=== PATIENT | male | born 1980 | race Caucasian/White ===

== ENCOUNTER 2020-10-23 11:31 | Outpatient (REF) | payer OTHER, SELFPAY | END 2020-10-23 11:32 | disposition home or self-care (01) | LOC: HO.LAB 11:31 | PROVIDERS: Visit Provider Internal Medicine | DX: Z20.828 Contact with and (suspected) exposure to other viral communicable diseases (principal) | CPT/HCPCS: C9803; U0003 ==

== ENCOUNTER 2020-10-30 15:51 | Outpatient (REF) | payer OTHER, SELFPAY | END 2020-10-30 15:52 | disposition home or self-care (01) | LOC: HO.LAB 15:51 | PROVIDERS: Visit Provider Internal Medicine | DX: Z20.828 Contact with and (suspected) exposure to other viral communicable diseases (principal) | CPT/HCPCS: C9803; U0003 ==

== ENCOUNTER 2020-11-02 11:56 | Emergency (ER) | payer OTHER, SELFPAY ==
--- NOTE | 2020-11-02 12:43 | ECG_ITS ---
Test Reason : cp Blood Pressure : / mmHG Vent. Rate : 071 BPM Atrial Rate : 071 BPM P-R Int : 114 ms QRS Dur : 082 ms QT Int : 398 ms P-R-T Axes : 041 074 047 degrees QTc Int : 432 ms Normal sinus rhythm with sinus arrhythmia Normal ECG When compared with ECG of 16-OCT-2019 14:11, No significant change was found Referred By: Twyla Howell Electronically Signed By:DIAN ZARAGOZA MD
[2020-11-02 12:45] VITALS: BP 119/86; PULSE 76; RESP 18; TEMP 36.6; O2SAT 99; BMI 20.1
--- NOTE | 2020-11-02 12:51 | ED.NAVMDI ---
HPI - Nausea/Vomiting/Diarrhea General Chief complaint: Abdominal Pain Stated complaint: abd pain, vomiting Time Seen by Provider: 11/02/20 12:43 History of Present Illness HPI Narrative: 40-year-old male with a history diabetes presents today with nausea vomiting diarrhea that is been ongoing for the last day and half. Positive history of using marijuana 2 days ago. Positive generalized malaise. No fever no chills. Min minimal coughing.. No diaphoresis. No history of abdominal surgery. The abdominal pain is epigastric. Does not radiate. Not related to food not related to position. Worsen with nausea vomiting. Patient from home. Rates the pain as 8/10. Related Data Home Medications Medication Instructions Recorded Confirmed omeprazole 20 mg capsule,delayed 20 mg PO BID 10/11/20 10/11/20 release Previous Rx's Medication Instructions Recorded pioglitazone 15 mg tablet 15 mg PO DAILY 90 Days #90 tab 10/11/20 wheelchair #1 ea 10/11/20 ondansetron 4 mg PO TID PRN 5 Days #10 tab 11/02/20 Allergies Allergy/AdvReac Type Severity Reaction Status Date / Time metformin Allergy Unknown vomiting Verified 10/11/20 14:06 and diarrhea sitagliptin [Januvia] Allergy Unknown vomiting Verified 10/11/20 14:06 and diarrhea Review of Systems Review of Systems: Constitutional: No Weight loss, No Fever, No Chills, No Night Sweats, No Fatigue, No Malaise ENT/Mouth: No Hearing loss, No Ear Pain, No Nasal Congestion, No Sinus Pain, No Hoarseness, No sore throat, No Rhinorrhea, No Swallowing Difficulty Eyes: No Eye Pain, No Swelling, No Redness, No Foreign Body, No Discharge, No Vision Changes Cardiovascular: No Chest Pain, No SOB, No Dyspnea on Exertion, No Orthopnea, No Edema, No Palpitations Respiratory: No Cough, No Sputum, No Wheezing, No Smoke Exposure, No Dyspnea Gastrointestinal: Positive nausea, vomiting, abdominal pain. Positive diarrhea Genitourinary: no irregular bleeding, No Dysuria, No Urinary Frequency, No Hematuria, No Urinary Incontinence, No Urgency, No Flank Pain, No Urinary Flow Changes, No Hesitancy Musculoskeletal: No joint pain, No Myalgias, No Joint Swelling Skin: No Skin Lesions, No rash Neuro: No Weakness, No Numbness, No Paresthesias, No Loss of Consciousness, No Dizziness, No Headache Psych: No Anxiety/Panic, No Depression, No SI/HI/AH/VH, No Social Issues, Heme/Lymph: No Bruising, No Bleeding,No Lymphadenopathy Endocrine: No Polyuria, No Polydipsia, No Temperature Intolerance PMFSH Past Medical History Attestation statement: The following information was validated with the patient. 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 Social History Social History Smoking Status: Never smoker Advance Directives: No Advance Directives Information Provided: Yes Physical Exam Vital Signs: Vital Signs: Last Vital Signs Temp 98.2 F 11/02/20 15:33 Pulse 79 11/02/20 15:33 Resp 16 11/02/20 15:33 BP 144/69 H 11/02/20 15:33 Pulse Ox 99 11/02/20 15:33 Body Mass Index 20.1 Appearance: Alert. Oriented X3. No acute distress. Eyes: Pupils equal, round and reactive to light. ENT: Pharynx normal. Neck: Normal inspection. Neck supple. No lymph nodes noted. No crepitus CVS: Normal heart rate and rhythm. Pulses normal. Normal S1 and S2 Respiratory: No respiratory distress. Breath sounds normal. No Wheezing. No rales Abdomen: Mild epigastric tenderness no rebound or guarding. No rigidity. No distention. good BS x4 Skin: Skin warm and dry. Normal skin color. Normal skin turgor. Extremities: No lower extremity edema. Neurovascular intact to all extremities. No Lacerations. No Rash Neuro: Oriented X 3. No motor deficit. No sensory deficit. Moving all extermities. No slurred speech MDM - Nausea/Vomiting/Diarrhea MDM Narrative Medical decision making narrative: Patient's electrolyte consistent with dehydration. Bicarb was 26 glucose is in the 250 range. No evidence for DKA. Given IV hydration with good results. Patient complained of epigastric pain. CT scan of the abdomen is done. There is no evidence of perforation abscess. There is renal cysts noted it is unchanged in size. Will have patient follow-up on an outpatient basis. Patient has no distress. Will start patient on PPI. Will give patient Zofran for nausea. In stable condition. Will discharge home Medical Records Attestation: I reviewed the patient's medical records. Lab Data Attestation: I reviewed the patient's lab results. Result diagrams: 11/02/20 13:01 11/02/20 13:01 Labs: Lab Results 11/02/20 11/02/20 11/02/20 Range/Units 12:50 13:01 13:01 WBC 11.6 H (4.8-10.8) X10*3/uL RBC 5.18 (4.60-5.80) X10*6/uL Hgb 15.9 (14.0-18.0) g/dl Hct 45.9 (42-52) % MCV 88.6 (80-98) fL MCH 30.7 (27.0-33.0) pg MCHC 34.6 (31.0-36.0) g/dl RDW 11.8 (11.0-16.0) % Plt Count 289 (160-400) X10*3/uL MPV 9.0 L (9.4-12.4) fL Immature Gran % (Auto) 0.3 (0.0-0.4) % Neut % (Auto) 87.6 H (45-73) % Lymph % (Auto) 8.4 L (20-40) % [place] % (Auto) 3.6 (2-11) % Eos % (Auto) 0.0 (0-4) % Baso % (Auto) 0.1 (0-2) % Lymph # (Auto) 1.0 L (1.2-4.9) X10*3/uL [place] # (Auto) 0.4 (0.1-1.2) X10*3/uL Eos # (Auto) 0.0 (0.0-0.4) X10*3/uL Baso # (Auto) 0.0 (0.0-0.2) X10*3/uL Abs Immat Gran (auto) 0.04 H (0.00-0.03) X10*3/uL Absolute Neuts (auto) 10.2 H (2.0-8.3) X10*3/uL Absolute Nucleated RBC 0.000 (0.0-0.012) X10*3/uL Nucleated RBC % (auto) 0.0 (0.0-0.2) /100WBC PT 13.2 H (10.8-13.0) SEC INR 1.1 (0.9-1.1) Sodium (135-145) mmol/L Potassium (3.3-5.1) mmol/l Chloride (96-108) mmol/L Carbon Dioxide (22-29) mmol/L Anion Gap (12-20) BUN (9-16) mg/dL Creatinine (0.5-1.4) mg/dL Estim Creat Clear Calc Estimated GFR POC Glucose 273 H (60-115) mg/dL Random Glucose (60-115) mg/dL Calcium (8.4-10.2) mg/dL Magnesium (1.6-2.6) mg/dL Total Bilirubin (0.0-1.0) mg/dL Direct Bilirubin (0.0-0.5) mg/dL AST (5-37) U/L ALT (0-40) U/L Alkaline Phosphatase (39-117) U/L Total Protein (6.5-8.0) g/dL Albumin (3.5-5.0) g/dL Lipase (8-78) U/L Urine Color Urine Appearance Urine pH (5.0-8.0) Ur Specific [place] (1.005-1.025) Urine Protein (NEG-TRACE) MG/DL Urine Glucose (UA) (NEG) MG/DL Urine Ketones (NEG) MG/DL Urine Blood (NEG) Urine Nitrite (NEG) Ur Leukocyte Esterase (NEG) Acetone, Qual (Negative) COVID-19 (ANIKA) (Negative) COVID-19 Clin Com 11/02/20 11/02/20 11/02/20 Range/Units 13:01 13:12 15:32 WBC (4.8-10.8) X10*3/uL RBC (4.60-5.80) X10*6/uL Hgb (14.0-18.0) g/dl Hct (42-52) % MCV (80-98) fL MCH (27.0-33.0) pg MCHC (31.0-36.0) g/dl RDW (11.0-16.0) % Plt Count (160-400) X10*3/uL MPV (9.4-12.4) fL Immature Gran % (Auto) (0.0-0.4) % Neut % (Auto) (45-73) % Lymph % (Auto) (20-40) % [place] % (Auto) (2-11) % Eos % (Auto) (0-4) % Baso % (Auto) (0-2) % Lymph # (Auto) (1.2-4.9) X10*3/uL [place] # (Auto) (0.1-1.2) X10*3/uL Eos # (Auto) (0.0-0.4) X10*3/uL Baso # (Auto) (0.0-0.2) X10*3/uL Abs Immat Gran (auto) (0.00-0.03) X10*3/uL Absolute Neuts (auto) (2.0-8.3) X10*3/uL Absolute Nucleated RBC (0.0-0.012) X10*3/uL Nucleated RBC % (auto) (0.0-0.2) /100WBC PT (10.8-13.0) SEC INR (0.9-1.1) Sodium 135 (135-145) mmol/L Potassium 3.5 (3.3-5.1) mmol/l Chloride 94 L (96-108) mmol/L Carbon Dioxide 26 (22-29) mmol/L Anion Gap 19 (12-20) BUN 23 H (9-16) mg/dL Creatinine 1.10 (0.5-1.4) mg/dL Estim Creat Clear Calc 70.1 Estimated GFR > 60 POC Glucose 223 H (60-115) mg/dL Random Glucose 293 H (60-115) mg/dL Calcium 9.1 (8.4-10.2) mg/dL Magnesium 2.2 (1.6-2.6) mg/dL Total Bilirubin 1.8 H (0.0-1.0) mg/dL Direct Bilirubin 0.5 (0.0-0.5) mg/dL AST 22 (5-37) U/L ALT 37 (0-40) U/L Alkaline Phosphatase 103 (39-117) U/L Total Protein 8.2 H (6.5-8.0) g/dL Albumin 4.8 (3.5-5.0) g/dL Lipase < 4 L (8-78) U/L Urine Color Urine Appearance Urine pH (5.0-8.0) Ur Specific [place] (1.005-1.025) Urine Protein (NEG-TRACE) MG/DL Urine Glucose (UA) (NEG) MG/DL Urine Ketones (NEG) MG/DL Urine Blood (NEG) Urine Nitrite (NEG) Ur Leukocyte Esterase (NEG) Acetone, Qual Small H (Negative) COVID-19 (ANIKA) Negative (Negative) COVID-19 Clin Com See Note 11/02/20 Range/Units 15:52 WBC (4.8-10.8) X10*3/uL RBC (4.60-5.80) X10*6/uL Hgb (14.0-18.0) g/dl Hct (42-52) % MCV (80-98) fL MCH (27.0-33.0) pg MCHC (31.0-36.0) g/dl RDW (11.0-16.0) % Plt Count (160-400) X10*3/uL MPV (9.4-12.4) fL Immature Gran % (Auto) (0.0-0.4) % Neut % (Auto) (45-73) % Lymph % (Auto) (20-40) % [place] % (Auto) (2-11) % Eos % (Auto) (0-4) % Baso % (Auto) (0-2) % Lymph # (Auto) (1.2-4.9) X10*3/uL [place] # (Auto) (0.1-1.2) X10*3/uL Eos # (Auto) (0.0-0.4) X10*3/uL Baso # (Auto) (0.0-0.2) X10*3/uL Abs Immat Gran (auto) (0.00-0.03) X10*3/uL Absolute Neuts (auto) (2.0-8.3) X10*3/uL Absolute Nucleated RBC (0.0-0.012) X10*3/uL Nucleated RBC % (auto) (0.0-0.2) /100WBC PT (10.8-13.0) SEC INR (0.9-1.1) Sodium (135-145) mmol/L Potassium (3.3-5.1) mmol/l Chloride (96-108) mmol/L Carbon Dioxide (22-29) mmol/L Anion Gap (12-20) BUN (9-16) mg/dL Creatinine (0.5-1.4) mg/dL Estim Creat Clear Calc Estimated GFR POC Glucose (60-115) mg/dL Random Glucose (60-115) mg/dL Calcium (8.4-10.2) mg/dL Magnesium (1.6-2.6) mg/dL Total Bilirubin (0.0-1.0) mg/dL Direct Bilirubin (0.0-0.5) mg/dL AST (5-37) U/L ALT (0-40) U/L Alkaline Phosphatase (39-117) U/L Total Protein (6.5-8.0) g/dL Albumin (3.5-5.0) g/dL Lipase (8-78) U/L Urine Color YELLOW Urine Appearance CLEAR Urine pH 6.0 (5.0-8.0) Ur Specific [place] 1.020 (1.005-1.025) Urine Protein 1+ H (NEG-TRACE) MG/DL Urine Glucose (UA) 500 H (NEG) MG/DL Urine Ketones >=80 (NEG) MG/DL Urine Blood TRACE (NEG) Urine Nitrite NEG (NEG) Ur Leukocyte Esterase NEG (NEG) Acetone, Qual (Negative) COVID-19 (ANIKA) (Negative) COVID-19 Clin Com Discharge Plan Discharge Clinical Impression: Gastritis Patient Disposition: Home, Self-Care Instructions: Gastritis (ED) Additional Instructions: May take omeprazole twice a day. Please refrain from smoking marijuana. Cyst was noted in your kidney. Please closely follow-up on an outpatient basis. Prescriptions: New ondansetron 4 mg tablet,disintegrating 4 mg PO TID PRN (Reason: nausea and vomiting) 5 Days Qty: 10 RF: 0 No Action omeprazole 20 mg capsule,delayed release(DR/EC) 20 mg PO BID RF: 0 (DME) wheelchair electric See Rx Instructions .Route .MEDSUPPLY Qty: 1 RF: 0 pioglitazone 15 mg tablet 15 mg PO DAILY 90 Days Qty: 90 RF: 0 Referrals: Isabell Blue MD [Primary Care Provider] - 2 days
[2020-11-02 12:54] LABS: Glucose, Whole Blood 273 mg/dL (60-115)
[2020-11-02] MEDS: ondansetron HCL 4 MG/2 ML VIAL IVPUSH (13:06)
[2020-11-02] MEDS: 0.9 % Sodium Chloride 1,000 ML 999 ML IVCONT ×2 (13:06→14:36)
[2020-11-02 13:08] LABS: MANUAL DIFF FLAG NO
[2020-11-02 13:12] LABS: Basophils Percent Auto 0.1 % (0-2); Hematocrit 45.9 % (42-52); Hemoglobin 15.9 g/dl (14.0-18.0); Imm Gran Abs Auto 0.04 X10*3/uL (0.00-0.03); Imm Gran Pct Auto 0.3 % (0.0-0.4); Lymphocytes Percent Auto 8.4 % (20-40); Mean Corpuscular HGB Conc 34.6 g/dl (31.0-36.0); Mean Corpuscular Hemoglobin 30.7 pg (27.0-33.0); Mean Corpuscular Volume 88.6 fL (80-98); Monocytes Absolute Auto 0.4 X10*3/uL (0.1-1.2); Monocytes Percent Auto 3.6 % (2-11); Neutrophils Absolute Auto 10.2 X10*3/uL (2.0-8.3); Neutrophils Percent Auto 87.6 % (45-73); Platelet Count 289 X10*3/uL (160-400); Red Blood Count 5.18 X10*6/uL (4.60-5.80); Red Cell Distribution Width 11.8 % (11.0-16.0); White Blood Count 11.6 X10*3/uL (4.8-10.8)
[2020-11-02 13:27] LABS: INTERNATIONAL NORM RATIO 1.1 (0.9-1.1); Prothrombin Time 13.2 SEC (10.8-13.0)
[2020-11-02 13:31] LABS: COVID-19 Test Negative (Negative)
[2020-11-02 13:37] LABS: Alanine Aminotransferase 37 U/L (0-40); Albumin Level 4.8 g/dL (3.5-5.0); Alkaline Phosphatase 103 U/L (39-117); Anion Gap 19 (12-20); Aspartate Amino Transferase 22 U/L (5-37); Bilirubin Direct 0.5 mg/dL (0.0-0.5); Bilirubin Total 1.8 mg/dL (0.0-1.0); Blood Urea Nitrogen 23 mg/dL (9-16); Calcium 9.1 mg/dL (8.4-10.2); Carbon Dioxide 26 mmol/L (22-29); Chloride 94 mmol/L (96-108); Creatinine Clr Calc Pharmacy 70.1; Estimated Glomerular Filt Rate > 60; Glucose Random 293 mg/dL (60-115); Lipase < 4 U/L (8-78); Magnesium 2.2 mg/dL (1.6-2.6); Potassium 3.5 mmol/l (3.3-5.1); Sodium 135 mmol/L (135-145); Total Protein 8.2 g/dL (6.5-8.0)
--- NOTE | 2020-11-02 13:56 | CT_ITS ---
EXAMINATION: CT ABDOMEN AND PELVIS WITH CONTRAST CLINICAL INFORMATION: Abdominal pain COMPARISON: CT abdomen and pelvis with contrast 01/01/2020 TECHNIQUE: Multidetector volumetric images were obtained from the superior aspect of the liver through the pubic symphysis following administration , 10/16/2019 mL of Omnipaque 350 intravenous contrast. Sagittal and coronal reformatted images were obtained on the technologist's workstation. Additional axial delayed images are obtained through the kidneys during the excretion phase with additional reformatted images. Oral contrast: No This CT examination was performed using dose optimization techniques as appropriate, variously including the following: *Automated exposure control *Adjustment of mA and/or kV according to patient size (this includes techniques or standardized protocols for targeted exams where dose is matched to indication/reason for exam; i.e. extremities or head) *Use of iterative reconstruction technique DLP: 494 mGy-cm FINDINGS: LUNG BASES: The visualized lung bases are unremarkable. LIVER, GALLBLADDER, AND BILIARY TREE: The liver is normal in size, shape, and attenuation. No focal hepatic lesion or biliary ductal dilatation is present. The gallbladder is unremarkable with no evidence of radiopaque gallstones, gallbladder wall thickening, or obvious pericholecystic inflammatory changes. PANCREAS: Mildly atrophic. No ductal dilatation or peripancreatic inflammatory changes. SPLEEN: Normal in size and homogeneous. 1 cm splenule present left upper quadrant. ADRENAL GLANDS: Unremarkable. KIDNEYS AND URETERS: The kidneys show no hydronephrosis, hydroureter, or perinephric stranding. There are numerous bilateral renal cysts again present. The hyperdense cysts left exophytic lower pole 2.2 cm, 53 HU attenuation and posterior exophytic interpolar 1.4 cm 70 HU attenuation are again noted of similar size. No appreciable washout on delayed images. Some of the lesions are too small to characterize. There is punctate rim calcification right upper pole cyst breast appreciated on coronal image. MRI would be helpful to fully characterize the kidneys as previously noted. BLADDER: Unremarkable. GASTROINTESTINAL TRACT: There is small sliding hiatal hernia. No bowel obstruction. The appendix is normal. The left colon is nondistended and difficult to assess for subtle wall thickening. There is no definite inflammatory changes seen in the bowel and no inflammatory changes present in the adjacent mesentery. There is no ascites or fluid collection. ABDOMINAL WALL: Borderline fat-containing umbilical hernia. LYMPH NODES: No lymphadenopathy. VASCULAR: Unremarkable. PELVIC VISCERA: Enlarged prostate again noted. Pelvic side wall soft tissues unremarkable. OSSEOUS STRUCTURES: No acute bony abnormality. CT/CT abdomen pelvis w con IMPRESSION: 1. No bowel obstruction. Normal appendix. Descending and sigmoid colon nondistended and difficult to assess for subtle wall thickening. No inflammatory changes in mesentery. No ascites. 2. No hydronephrosis or perinephric stranding. Multiple bilateral renal cysts, some hyperdense, stable in size. 3. Enlarged prostate.
[2020-11-02 14:22] LABS: Acetone, serum QL Small (Negative)
[2020-11-02] MEDS: Ketorolac Tromethamine 15 MG/ML VIAL IV (14:44)
[2020-11-02 15:33] VITALS: BP 144/69; PULSE 79; RESP 16; TEMP 36.8; O2SAT 99
[2020-11-02] MEDS: iohexoL 350 MG/ML 100 ML INFUS..BTL IV (15:35)
[2020-11-02 15:40] LABS: Glucose, Whole Blood 223 mg/dL (60-115)
[2020-11-02 15:58] LABS: Glucose Urine UA 500 MG/DL (NEG); Leukocyte Esterase Urine NEG (NEG); Nitrite Urine NEG (NEG); Urine Blood TRACE (NEG); Urine Ketones >=80 MG/DL (NEG); Urine Protein 1+ MG/DL (NEG-TRACE)
[2020-11-02 16:04] LABS: Appearance Urine CLEAR; Color Urine YELLOW
[2020-11-02 16:29] LABS: RBC Urine 0-2 /HPF (0); WBC Urine 0 /HPF (0-4)
== END 2020-11-02 17:31 | disposition home or self-care (01) ==
PROVIDERS: Emergency Provider Emergency Medicine Emergency Medical Services; PCP Internal Medicine
DX: K29.70 Gastritis, unspecified, without bleeding (principal); Z20.828 Contact with and (suspected) exposure to other viral communicable diseases; E11.9 Type 2 diabetes mellitus without complications; F12.90 Cannabis use, unspecified, uncomplicated; N28.1 Cyst of kidney, acquired
CPT/HCPCS: 36415; 74177; 80048; 80076; 81001; 81003; 82009; 82947; 83690; 83735; 85025; 85610; 87635; 93005; 96361; 96374; 96375; 99285; J1885; J2405; Q9967

== ENCOUNTER → 2020-11-06 13:08 | Outpatient (BNVA) | payer OTHER, SELFPAY | PROVIDERS: PCP Internal Medicine; Visit Provider Internal Medicine Gastroenterology | DX: K21.9 Gastro-esophageal reflux disease without esophagitis (principal) | CPT/HCPCS: 99212 ==

== ENCOUNTER → 2020-11-20 15:55 | Outpatient (BNVA) | payer OTHER, SELFPAY | PROVIDERS: PCP Internal Medicine; Visit Provider Internal Medicine Gastroenterology | DX: Z76.89 Persons encountering health services in other specified circumstances (principal) | CPT/HCPCS: Q3014 ==

== ENCOUNTER → 2021-02-12 09:14 | Outpatient (BNVA) | payer OTHER, SELFPAY | PROVIDERS: PCP Internal Medicine; Visit Provider Internal Medicine Gastroenterology | DX: Z13.89 Encounter for screening for other disorder (principal) | CPT/HCPCS: Q3014 ==

== ENCOUNTER → 2021-02-20 11:11 | Outpatient (BNVA) | payer OTHER, SELFPAY | PROVIDERS: PCP Internal Medicine; Visit Provider Internal Medicine Gastroenterology | DX: Z13.89 Encounter for screening for other disorder (principal) | CPT/HCPCS: Q3014 ==

== ENCOUNTER 2021-03-02 09:08 | Outpatient (REF) | payer OTHER, SELFPAY ==
--- NOTE | ~2021-03-02 | FL_ITS ---
EXAMINATION: FL BARIUM SWALLOW CLINICAL INFORMATION: Dysphagia. Patient reports occasional choking. COMPARISON: None TECHNIQUE: Swallowing examination of the cervical esophagus was performed in the AP and lateral positions with self administration of thick, high density barium. Following the self administration of effervescent granules, thoracic esophagography was performed with the patient in upright and recumbent positions with thin barium. A 12.7 mm barium tablet was also administered. Fluoroscopy time: 1.3 minutes minutes DAP: 3.03 Gycm2 Images: 29 FINDINGS: Pharynx and cervical esophagus: Examination demonstrates normal motility without stricturing, diverticula, or obstruction. No significant pooling of contrast material in the valleculae or piriform sinuses. No cricopharyngeal abnormalities are noted. The pharynx and cervical spine are normal in appearance. Thoracic esophagus: Normal esophageal motility was observed during swallowing. There was no evidence of esophageal mass, ulceration, or stricture. No hiatal hernia was noted. Trace gastroesophageal reflux into the distal esophagus was observed with movement while in supine position on the table. No further reflux was elicited with postop maneuvers. Positive water siphon test. Barium pill was noted to pass through the esophagus and into the lumen of the stomach without delay. FL/FL barium swallow IMPRESSION: Minimal gastroesophageal reflux of the distal esophagus.. Otherwise normal barium swallow study.
== END 2021-03-02 09:09 | disposition home or self-care (01) ==
LOC: HO.XRAY 09:08
PROVIDERS: PCP Internal Medicine; Visit Provider Internal Medicine Gastroenterology
DX: R13.10 Dysphagia, unspecified (principal)
CPT/HCPCS: 74220

== ENCOUNTER 2021-08-01 08:19 | Outpatient (REF) | payer OTHER, SELFPAY ==
[2021-08-01 08:40] LABS: MANUAL DIFF FLAG NO
[2021-08-01 08:45] LABS: Basophils Percent Auto 0.6 % (0-2); Eosinophils Absolute Auto 0.4 X10*3/uL (0.0-0.4); Eosinophils Percent Auto 5.6 % (0-4); Hematocrit 44.5 % (42-52); Hemoglobin 14.9 g/dl (14.0-18.0); Imm Gran Abs Auto 0.02 X10*3/uL (0.00-0.03); Imm Gran Pct Auto 0.3 % (0.0-0.4); Lymphocytes Absolute Auto 2.1 X10*3/uL (1.2-4.9); Lymphocytes Percent Auto 33.5 % (20-40); Mean Corpuscular HGB Conc 33.5 g/dl (31.0-36.0); Mean Corpuscular Hemoglobin 30.3 pg (27.0-33.0); Mean Corpuscular Volume 90.6 fL (80-98); Mean Platelet Volume 9.3 fL (9.4-12.4); Monocytes Absolute Auto 0.4 X10*3/uL (0.1-1.2); Monocytes Percent Auto 6.2 % (2-11); Neutrophils Absolute Auto 3.4 X10*3/uL (2.0-8.3); Neutrophils Percent Auto 53.8 % (45-73); Platelet Count 243 X10*3/uL (160-400); Red Blood Count 4.91 X10*6/uL (4.60-5.80); Red Cell Distribution Width 11.9 % (11.0-16.0); White Blood Count 6.3 X10*3/uL (4.8-10.8)
[2021-08-01 10:05] LABS: Alanine Aminotransferase 33 U/L (0-40); Albumin Level 4.5 g/dL (3.5-5.0); Alkaline Phosphatase 64 U/L (39-117); Anion Gap 11 (12-20); Aspartate Amino Transferase 21 U/L (5-37); Bilirubin Total 0.6 mg/dL (0.0-1.0); Blood Urea Nitrogen 17 mg/dL (9-16); Calcium 9.8 mg/dL (8.4-10.2); Carbon Dioxide 30 mmol/L (22-29); Chloride 104 mmol/L (96-108); Cholesterol 209 mg/dL; Estimated Glomerular Filt Rate > 60; Glucose Fasting 355 mg/dL (60-99); HDL Cholesterol 53 mg/dL; LDL Cholesterol Calculated 140 mg/dl; Potassium 4.6 mmol/L (3.3-5.1); Sodium 140 mmol/L (135-145); Total Protein 7.1 g/dL (6.5-8.0); Triglycerides 81 mg/dL
[2021-08-09 16:50] LABS: Vitamin D 25-OH, D2 <4 ng/mL; Vitamin D 25-OH, D3 15 ng/mL; Vitamin D 25-OH, Total 15 ng/mL (30-100)
== END 2021-08-01 08:20 | disposition home or self-care (01) ==
LOC: HO.LAB 08:19
PROVIDERS: PCP Internal Medicine; Visit Provider Internal Medicine
DX: E13.9 Other specified diabetes mellitus without complications (principal); E78.5 Hyperlipidemia, unspecified; E55.9 Vitamin D deficiency, unspecified
CPT/HCPCS: 36415; 80053; 80061; 82306; 85025

== ENCOUNTER → 2021-09-21 11:07 | Outpatient (BNVA) | payer OTHER, SELFPAY | PROVIDERS: PCP Internal Medicine; Referring Provider Internal Medicine; Visit Provider Internal Medicine Gastroenterology | DX: K31.84 Gastroparesis (principal) | CPT/HCPCS: 99212 ==

== ENCOUNTER 2022-01-01 08:49 | Outpatient (REF) | payer OTHER, SELFPAY ==
[2022-01-01 09:18] LABS: MANUAL DIFF FLAG NO
[2022-01-01 09:45] LABS: Basophils Percent Auto 0.6 % (0-2); Eosinophils Absolute Auto 0.2 X10*3/uL (0.0-0.4); Hematocrit 43.4 % (42.0-52.0); Hemoglobin 14.8 g/dl (14.0-18.0); Imm Gran Abs Auto 0.01 X10*3/uL (0.00-0.03); Imm Gran Pct Auto 0.2 % (0.0-0.4); Lymphocytes Absolute Auto 2.1 X10*3/uL (1.2-4.9); Lymphocytes Percent Auto 41.2 % (20-40); Mean Corpuscular HGB Conc 34.1 g/dl (31.0-36.0); Mean Corpuscular Hemoglobin 30.8 pg (27.0-33.0); Mean Corpuscular Volume 90.4 fL (80.0-98.0); Mean Platelet Volume 9.4 fL (9.4-12.4); Monocytes Absolute Auto 0.3 X10*3/uL (0.1-1.2); Monocytes Percent Auto 6.2 % (2-11); Neutrophils Absolute Auto 2.4 x10*3/uL (2.0-8.3); Neutrophils Percent Auto 47.8 % (45-73); Platelet Count 218 X10*3/uL (160-400); Red Cell Distribution Width 11.6 % (11.0-16.0)
[2022-01-01 10:01] LABS: Estimated Average Glucose 295 mg/dL; Hemoglobin A1c % 11.9 %
[2022-01-01 10:15] LABS: Alanine Aminotransferase 26 U/L (0-40); Albumin Level 4.2 g/dL (3.5-5.0); Alkaline Phosphatase 67 U/L (39-117); Anion Gap 13 (12-20); Aspartate Amino Transferase 17 U/L (5-37); Blood Urea Nitrogen 11 mg/dL (9-16); Calcium 9.2 mg/dL (8.4-10.2); Carbon Dioxide 27 mmol/L (22-29); Chloride 103 mmol/L (96-108); Cholesterol 219 mg/dL; Estimated Glomerular Filt Rate > 60; Glucose Fasting 330 mg/dL (60-99); HDL Cholesterol 50 mg/dL; Iron 92 mcg/dL (45-160); LDL Cholesterol Calculated 156 mg/dl; Percent Iron Saturation 36 % (15-50); Potassium 4.7 mmol/L (3.3-5.1); Sodium 138 mmol/L (135-145); Total Iron Binding Capacity 254 mcg/dL (228-428); Triglycerides 68 mg/dL; Unsaturated Iron Binding 162 ug/dL
== END 2022-01-01 08:50 | disposition home or self-care (01) ==
LOC: HO.LAB 08:49
PROVIDERS: PCP Internal Medicine; Visit Provider Internal Medicine
DX: E11.40 Type 2 diabetes mellitus with diabetic neuropathy, unspecified (principal); D64.9 Anemia, unspecified; E78.5 Hyperlipidemia, unspecified
CPT/HCPCS: 36415; 80053; 80061; 83036; 83540; 85025

== ENCOUNTER 2022-01-13 12:09 | Inpatient (IN) | payer OTHER, SELFPAY ==
--- NOTE | ~2022-01-13 | CT_ITS ---
EXAMINATION: CT ABDOMEN AND PELVIS WITH CONTRAST CLINICAL INFORMATION: GI bleed with hematemesis and dark stool COMPARISON: CT abdomen pelvis 11/02/2020 and abdominal ultrasound 01/31/2019 TECHNIQUE: Multidetector volumetric images were obtained from the superior aspect of the liver through the pubic symphysis following administration 85 mL of Omnipaque 350 intravenous contrast. Sagittal and coronal reformatted images were obtained on the technologist's workstation. Oral contrast: No This CT examination was performed using dose optimization techniques as appropriate, variously including the following: *Automated exposure control *Adjustment of mA and/or kV according to patient size (this includes techniques or standardized protocols for targeted exams where dose is matched to indication/reason for exam; i.e. extremities or head) *Use of iterative reconstruction technique DLP: 246 mGy-cm FINDINGS: LUNG BASES: The visualized lung bases are unremarkable. LIVER, GALLBLADDER, AND BILIARY TREE: The liver is normal in size, shape, and attenuation. No focal hepatic lesion or biliary ductal dilatation is present. The gallbladder is unremarkable with no evidence of radiopaque gallstones, gallbladder wall thickening, or obvious pericholecystic inflammatory changes. PANCREAS: Unremarkable. SPLEEN: Unremarkable. ADRENAL GLANDS: Unremarkable. KIDNEYS AND URETERS: The kidneys are normal in size, shape, and attenuation. Bilateral Bosniak class wine and probable Bosniak class II renal cysts are present. Findings are unchanged when compared to the prior study and these lesions were shown to be cysts on prior ultrasound. Bilateral nonobstructing renal calculi are present with 2 seen on the right and 3 seen on the left. The largest measures only 3 mm in size. Hounsfield unit measurements are 750. The stones are on average 6 cm from the posterior axillary line. No hydronephrosis, hydroureter, or ureteral calculi seen. No perinephric stranding. BLADDER: Unremarkable. GASTROINTESTINAL TRACT: The small and large bowel are unremarkable. There is no change in appearance in the colon which appears mildly thickened in the rectosigmoid. The appendix is unremarkable. ABDOMINAL WALL: No significant hernia is appreciated. LYMPH NODES: Normal. VASCULAR: Unremarkable. PELVIC VISCERA: There is moderate BPH. OSSEOUS STRUCTURES: Unremarkable. CT/CT abdomen pelvis w con IMPRESSION: An etiology for the patient's GI bleed has not been found. Incidental findings as described above. Including nonobstructing right renal calculi and BPH. Fleischner guidelines were followed.
[2022-01-13 12:31] VITALS: BP 131/90; PULSE 101; RESP 20; TEMP 37.3; O2SAT 98; BMI 18.8
--- NOTE | 2022-01-13 13:07 | ECG_ITS ---
Test Reason : abdominal pain Blood Pressure : / mmHG Vent. Rate : 080 BPM Atrial Rate : 080 BPM P-R Int : 112 ms QRS Dur : 078 ms QT Int : 366 ms P-R-T Axes : 013 070 027 degrees QTc Int : 422 ms Normal sinus rhythm Normal ECG When compared with ECG of 02-NOV-2020 12:52, No significant change was found Referred By: Shelia Jose Electronically Signed By:DIAN ZARAGOZA MD
--- NOTE | 2022-01-13 13:19 | ED.NAVMDI ---
HPI - Nausea/Vomiting/Diarrhea General Chief complaint: Nausea/Vomiting/Diarrhea Stated complaint: vomiting blood Time Seen by Provider: 01/13/22 12:57 Source: patient Mode of arrival: ambulatory History of Present Illness HPI Narrative: 42-year-old male with a past medical history of anemia, cerebral palsy, GERD, insomnia, diabetes, depression, presenting to the ED complaining of diffuse abdominal pain, nausea, dark hematemesis and dark/black stools x2 days. Denies being able to keep anything down. Denies taking anticoagulation. Admits to occasional EtOH use 1-2x a month. Denies fever, chills, dysuria/hematuria, lightheadedness/dizziness MD elicited complaint: nausea, vomiting and abdominal pain Onset (ago): day(s) Related Data Previous Rx's Medication Instructions Recorded wheelchair #1 ea 10/11/20 glimepiride 2 mg tablet 2 mg PO DAILY 90 Days #90 tab 02/12/21 blood-glucose meter (FreeStyle #1 ea 06/19/21 Lite Meter) pioglitazone 45 mg tablet 45 mg PO DAILY 90 Days #90 tab 10/26/21 blood sugar diagnostic (FreeStyle #50 ea 12/12/21 Test) Allergies Allergy/AdvReac Type Severity Reaction Status Date / Time No Known Allergies Allergy Verified 01/13/22 12:35 Review of Systems Review of Systems: Constitutional: No Fever, No Chills, No Fatigue, No Malaise ENT/Mouth: No Ear Pain, No Nasal Congestion, No sore throat, No Rhinorrhea, No Swallowing Difficulty Eyes: No Eye Pain, No Swelling, No Redness, No Discharge Cardiovascular: No Chest Pain, No SOB, No Edema, No Palpitations Respiratory: No Cough, No Sputum, No Dyspnea Gastrointestinal: + Nausea, + Vomiting, No Diarrhea, No Constipation, + Abdominal pain, + Hematochezia, + Melena Genitourinary: No Dysuria, No Urinary Frequency, No Hematuria, No Urgency, No Flank Pain Musculoskeletal: No joint pain, No Myalgias, No Joint Swelling Skin: No Skin Lesions, No rash Neuro: No Weakness, No Numbness, No Paresthesias, No Loss of Consciousness, No Dizziness, No Headache Yes all other systems are reviewed and are negative [facility] Past Medical History Attestation statement: The following information was validated with the patient. 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 Social History Social History Household Members: None Housing: Apartment Alcohol intake: current Alcohol intake frequency: a few times a month Alcohol type: beer and hard liquor Patient Tobacco Use Status: Former Tobacco user Tobacco use type: Cigarette e-Cigarette/Vaping Use: Never Used Second Hand Smoke Exposure: No Use of substances other than those prescribed or required for medical reasons: Yes Substance Use Type: Other Substance Use Type Other:: weed Substance Use Frequency: Daily Any prior treatment program specific to substance use: No Advance Directives: No Advance Directives Information Provided: No service: No Current occupational status: disabled Physical Exam Vital Signs: Vital Signs: Last Vital Signs Temp 97.7 F 01/13/22 16:25 Pulse 86 01/13/22 16:25 Resp 18 01/13/22 16:25 BP 112/67 01/13/22 16:25 Pulse Ox 99 01/13/22 16:25 BMI result Body Mass Index 18.8 Const: General: cooperative, alert and awake Orientation/consciousness: patient oriented x3 Limitations: no limitations HENMT: Head: Yes normal to inspection and Yes atraumatic Ears: hearing grossly normal bilaterally General nose exam: Normal external nose present Face and sinus: Yes normal facial exam Eyes: General: appearance normal, both eyes and all related structures EOM: EOMs intact bilaterally Neck: Neck: Yes normal visual inspection and Yes no meningeal signs Resp: Effort & Inspection: normal respiratory effort and no respiratory distress Auscultation: clear to auscultation bilaterally Cardio: Rate: regular rate Heart sounds: S1 normal heart sound present and S2 normal heart sound present GI: Other: Rectal vault empty, no stool Inspection: Yes normal to inspection and No distended Palpation (GI): Soft to palpation, Tenderness to palpation present (GI) (Diffusely), Guarding due to palpation present (GI) and not rigid Rectal Exam - Male: Yes visual inspection normal : General: Yes no CVA tenderness Back/Spine/Pelvis: Back: no CVA tenderness Skin: Rashes: no rashes Wounds: no wounds Neuro: General: patient oriented x3, tone normal, moves all extremities and no meningeal signs Gait exam (Neuro): Normal gait present Extrem: General: Yes normal to inspection Course Course Course Narrative: -1416--leukocytosis of 14.7 likely reactive from nausea/vomiting. Sodium 129, Glucose 336 > sodium correction for hyperglycemia =135 -metabolic acidosis with low CO2 and elevated anion gap of 27 & BUN 30 > likely from ketosis. Lactic acid negative. -occult stool negative however no stool in rectal vault -1608--CT abdomen pelvis w con IMPRESSION: An etiology for the patient's GI bleed has not been found. Incidental findings as described above. Including nonobstructing right renal calculi and BPH.? Fleischner guidelines were followed >> GI consulted -spoke to Dr. Talley, recommended IV PPI and admission. Patient with prior esophagitis and reflux on endoscopies in 2019 MDM - Nausea/Vomiting/Diarrhea MDM Narrative Medical decision making narrative: 42-year-old male with a past medical history of anemia, cerebral palsy, GERD, insomnia, diabetes, depression, presenting to the ED complaining of diffuse abdominal pain, nausea, dark hematemesis and dark/black stools x2 days. On exam tachycardic, appears in pain, abdomen soft diffusely tender, guarding, no stool in rectal vault, concern for GI bleed. Concern for anemia vs infectious etiology including diverticulitis/colitis and PUD. Plan: EKG, labs, UA, CT abdomen/pelvis, IVF, pain control Differential Diagnosis Differential diagnosis: Likely gastroenteritis and dehydration Medical Records Attestation: I reviewed the patient's medical records. Lab Data Attestation: I reviewed the patient's lab results. Result diagrams: 01/13/22 13:46 01/13/22 13:46 Labs: Lab Results 01/13/22 01/13/22 01/13/22 Range/Units 13:46 13:46 13:46 WBC 14.7 H (4.8-10.8) X10*3/uL RBC 5.46 (4.60-5.80) X10*6/uL Hgb 16.8 (14.0-18.0) g/dl Hct 47.3 (42.0-52.0) % MCV 86.6 (80.0-98.0) fL MCH 30.8 (27.0-33.0) pg MCHC 35.5 (31.0-36.0) g/dl RDW 11.7 (11.0-16.0) % Plt Count 200 (160-400) X10*3/uL MPV Not Reportable Immature Gran % (Auto) 0.3 (0.0-0.4) % Neut % (Auto) 87.9 H (45-73) % Lymph % (Auto) 7.8 L (20-40) % [place] % (Auto) 3.8 (2-11) % Eos % (Auto) 0.1 (0-4) % Baso % (Auto) 0.1 (0-2) % Lymph # (Auto) 1.1 L (1.2-4.9) X10*3/uL [place] # (Auto) 0.6 (0.1-1.2) X10*3/uL Eos # (Auto) 0.0 (0.0-0.4) X10*3/uL Baso # (Auto) 0.0 (0.0-0.2) X10*3/uL Abs Immat Gran (auto) 0.05 H (0.00-0.03) X10*3/uL Absolute Neuts (auto) 12.9 H (2.0-8.3) x10*3/uL Absolute Nucleated RBC 0.000 (0.0-0.012) X10*3/uL Nucleated RBC % (auto) 0.0 (0.0-0.2) /100WBC Smear Tech's Comments VERIFIED PT (9.9-13.0) SEC INR (0.9-1.1) APTT (24.1-38.0) SEC Sodium 129 L (135-145) mmol/L Potassium 4.9 (3.3-5.1) mmol/L Chloride 91 L (96-108) mmol/L Carbon Dioxide 16 L (22-29) mmol/L Anion Gap 27 H (12-20) BUN 30 H D (9-16) mg/dL Creatinine 1.37 (0.5-1.4) mg/dL Estim Creat Clear Calc 52.9 Estimated GFR 56 Random Glucose 336 H (60-115) mg/dL Lactic Acid 1.5 (0.5-2.0) mmol/L Calcium 9.9 D (8.4-10.2) mg/dL Magnesium 2.2 (1.6-2.6) mg/dL Total Bilirubin 2.1 H (0.0-1.0) mg/dL Direct Bilirubin 0.5 (0.0-0.5) mg/dL AST 33 D (5-37) U/L ALT 39 (0-40) U/L Alkaline Phosphatase 83 D (39-117) U/L Total Protein 8.9 H D (6.5-8.0) g/dL Albumin 5.0 (3.5-5.0) g/dL Urine Color Urine Appearance Urine pH (5.0-8.0) Ur Specific [place] (1.005-1.025) Urine Protein (NEG-TRACE) MG/DL Urine Glucose (UA) (NEG) MG/DL Urine Ketones (NEG) MG/DL Urine Blood (NEG) Urine Nitrite (NEG) Ur Leukocyte Esterase (NEG) Urine RBC (0) /HPF Urine WBC (0-4) /HPF Ur Squamous Epith Cells /LPF Urine Bacteria /LPF Stool Occult Blood (NEGATIVE) COVID-19 (ANIKA) (Negative) COVID-19 Clin Com 01/13/22 01/13/22 01/13/22 Range/Units 13:46 14:24 14:31 WBC (4.8-10.8) X10*3/uL RBC (4.60-5.80) X10*6/uL Hgb (14.0-18.0) g/dl Hct (42.0-52.0) % MCV (80.0-98.0) fL MCH (27.0-33.0) pg MCHC (31.0-36.0) g/dl RDW (11.0-16.0) % Plt Count (160-400) X10*3/uL MPV Immature Gran % (Auto) (0.0-0.4) % Neut % (Auto) (45-73) % Lymph % (Auto) (20-40) % [place] % (Auto) (2-11) % Eos % (Auto) (0-4) % Baso % (Auto) (0-2) % Lymph # (Auto) (1.2-4.9) X10*3/uL [place] # (Auto) (0.1-1.2) X10*3/uL Eos # (Auto) (0.0-0.4) X10*3/uL Baso # (Auto) (0.0-0.2) X10*3/uL Abs Immat Gran (auto) (0.00-0.03) X10*3/uL Absolute Neuts (auto) (2.0-8.3) x10*3/uL Absolute Nucleated RBC (0.0-0.012) X10*3/uL Nucleated RBC % (auto) (0.0-0.2) /100WBC Smear Tech's Comments PT 11.8 (9.9-13.0) SEC INR 1.0 (0.9-1.1) APTT 28.4 (24.1-38.0) SEC Sodium (135-145) mmol/L Potassium (3.3-5.1) mmol/L Chloride (96-108) mmol/L Carbon Dioxide (22-29) mmol/L Anion Gap (12-20) BUN (9-16) mg/dL Creatinine (0.5-1.4) mg/dL Estim Creat Clear Calc Estimated GFR Random Glucose (60-115) mg/dL Lactic Acid (0.5-2.0) mmol/L Calcium (8.4-10.2) mg/dL Magnesium (1.6-2.6) mg/dL Total Bilirubin (0.0-1.0) mg/dL Direct Bilirubin (0.0-0.5) mg/dL AST (5-37) U/L ALT (0-40) U/L Alkaline Phosphatase (39-117) U/L Total Protein (6.5-8.0) g/dL Albumin (3.5-5.0) g/dL Urine Color Urine Appearance Urine pH (5.0-8.0) Ur Specific [place] (1.005-1.025) Urine Protein (NEG-TRACE) MG/DL Urine Glucose (UA) (NEG) MG/DL Urine Ketones (NEG) MG/DL Urine Blood (NEG) Urine Nitrite (NEG) Ur Leukocyte Esterase (NEG) Urine RBC (0) /HPF Urine WBC (0-4) /HPF Ur Squamous Epith Cells /LPF Urine Bacteria /LPF Stool Occult Blood NEGATIVE (NEGATIVE) COVID-19 (ANIKA) Negative (Negative) COVID-19 Clin Com See Note 01/13/22 Range/Units 16:24 WBC (4.8-10.8) X10*3/uL RBC (4.60-5.80) X10*6/uL Hgb (14.0-18.0) g/dl Hct (42.0-52.0) % MCV (80.0-98.0) fL MCH (27.0-33.0) pg MCHC (31.0-36.0) g/dl RDW (11.0-16.0) % Plt Count (160-400) X10*3/uL MPV Immature Gran % (Auto) (0.0-0.4) % Neut % (Auto) (45-73) % Lymph % (Auto) (20-40) % [place] % (Auto) (2-11) % Eos % (Auto) (0-4) % Baso % (Auto) (0-2) % Lymph # (Auto) (1.2-4.9) X10*3/uL [place] # (Auto) (0.1-1.2) X10*3/uL Eos # (Auto) (0.0-0.4) X10*3/uL Baso # (Auto) (0.0-0.2) X10*3/uL Abs Immat Gran (auto) (0.00-0.03) X10*3/uL Absolute Neuts (auto) (2.0-8.3) x10*3/uL Absolute Nucleated RBC (0.0-0.012) X10*3/uL Nucleated RBC % (auto) (0.0-0.2) /100WBC Smear Tech's Comments PT (9.9-13.0) SEC INR (0.9-1.1) APTT (24.1-38.0) SEC Sodium (135-145) mmol/L Potassium (3.3-5.1) mmol/L Chloride (96-108) mmol/L Carbon Dioxide (22-29) mmol/L Anion Gap (12-20) BUN (9-16) mg/dL Creatinine (0.5-1.4) mg/dL Estim Creat Clear Calc Estimated GFR Random Glucose (60-115) mg/dL Lactic Acid (0.5-2.0) mmol/L Calcium (8.4-10.2) mg/dL Magnesium (1.6-2.6) mg/dL Total Bilirubin (0.0-1.0) mg/dL Direct Bilirubin (0.0-0.5) mg/dL AST (5-37) U/L ALT (0-40) U/L Alkaline Phosphatase (39-117) U/L Total Protein (6.5-8.0) g/dL Albumin (3.5-5.0) g/dL Urine Color STRAW Urine Appearance CLEAR Urine pH 5.5 (5.0-8.0) Ur Specific [place] 1.020 (1.005-1.025) Urine Protein 1+ H (NEG-TRACE) MG/DL Urine Glucose (UA) 500 H (NEG) MG/DL Urine Ketones >=80 (NEG) MG/DL Urine Blood 2+ H (NEG) Urine Nitrite NEG (NEG) Ur Leukocyte Esterase NEG (NEG) Urine RBC 5-9 H (0) /HPF Urine WBC 0 (0-4) /HPF Ur Squamous Epith Cells TRACE /LPF Urine Bacteria NONE /LPF Stool Occult Blood (NEGATIVE) COVID-19 (ANIKA) (Negative) COVID-19 Clin Com Discharge Plan Discharge Clinical Impression: Dehydration, Hematemesis, Dark stools Patient Disposition: Admitted As Inpatient
[2022-01-13] MEDS: 0.9 % Sodium Chloride 1,000 ML 999 ML IV ×2 (13:53→18:01)
[2022-01-13] MEDS: Morphine Sulfate 2 MG/ML CARTRIDGE IVPUSH ×2 (13:53→19:24)
[2022-01-13 13:54] LABS: Basophils Percent Auto 0.1 % (0-2); Eosinophils Percent Auto 0.1 % (0-4); Hematocrit 47.3 % (42.0-52.0); Hemoglobin 16.8 g/dl (14.0-18.0); Imm Gran Abs Auto 0.05 X10*3/uL (0.00-0.03); Imm Gran Pct Auto 0.3 % (0.0-0.4); Lymphocytes Absolute Auto 1.1 X10*3/uL (1.2-4.9); Lymphocytes Percent Auto 7.8 % (20-40); MANUAL DIFF FLAG SCAN; Mean Corpuscular HGB Conc 35.5 g/dl (31.0-36.0); Mean Corpuscular Hemoglobin 30.8 pg (27.0-33.0); Mean Corpuscular Volume 86.6 fL (80.0-98.0); Monocytes Absolute Auto 0.6 X10*3/uL (0.1-1.2); Monocytes Percent Auto 3.8 % (2-11); Neutrophils Absolute Auto 12.9 x10*3/uL (2.0-8.3); Neutrophils Percent Auto 87.9 % (45-73); PLT CLUMP 1; Red Blood Count 5.46 X10*6/uL (4.60-5.80); Red Cell Distribution Width 11.7 % (11.0-16.0); SCAN SMEAR FLAG 1
[2022-01-13 14:01] LABS: Lactic Acid 1.5 mmol/L (0.5-2.0)
[2022-01-13 14:07] LABS: Alanine Aminotransferase 39 U/L (0-40); Alkaline Phosphatase 83 U/L (39-117); Anion Gap 27 (12-20); Aspartate Amino Transferase 33 U/L (5-37); Bilirubin Direct 0.5 mg/dL (0.0-0.5); Bilirubin Total 2.1 mg/dL (0.0-1.0); Blood Urea Nitrogen 30 mg/dL (9-16); Calcium 9.9 mg/dL (8.4-10.2); Carbon Dioxide 16 mmol/L (22-29); Chloride 91 mmol/L (96-108); Creatinine Clr Calc Pharmacy 52.9; Estimated Glomerular Filt Rate 56; Glucose Random 336 mg/dL (60-115); Magnesium 2.2 mg/dL (1.6-2.6); Potassium 4.9 mmol/L (3.3-5.1); Sodium 129 mmol/L (135-145); Total Protein 8.9 g/dL (6.5-8.0)
[2022-01-13 14:11] LABS: Platelet Count 200 X10*3/uL (160-400); White Blood Count 14.7 X10*3/uL (4.8-10.8)
[2022-01-13 14:12] LABS: SLIDE REVIEW VERIFIED
[2022-01-13 14:13] LABS: COVID-19 Test Negative (Negative); IDNOW Serial# 16C4AD1C
[2022-01-13 14:42] LABS: OBS Int Ctl Valid YES; OBS1 NEGATIVE (NEGATIVE)
[2022-01-13 14:46] LABS: Prothrombin Time 11.8 SEC (9.9-13.0)
[2022-01-13 14:49] LABS: Partial Thromboplastin Time 28.4 SEC (24.1-38.0)
[2022-01-13] MEDS: iohexoL 350 MG/ML 100 ML INFUS..BTL IV (14:57)
[2022-01-13] MEDS: Magnesium Hydrox/Alum Hydrox 30 ML ORAL.SUSP PO (15:15)
[2022-01-13] MEDS: Famotidine/PF 20 MG/2 ML VIAL IVPUSH (15:15)
[2022-01-13] MEDS: Lidocaine HCl Viscous 2 % 15 ML SOLUTION MUCOUS MEM (15:21)
[2022-01-13 16:25] VITALS: BP 112/67; PULSE 86; RESP 18; TEMP 36.5; O2SAT 99
[2022-01-13 16:32] LABS: Appearance Urine CLEAR; Color Urine STRAW; Glucose Urine UA 500 MG/DL (NEG); Leukocyte Esterase Urine NEG (NEG); Nitrite Urine NEG (NEG); PH 5.5 (5.0-8.0); UACC Culture Trigger NO; Urine Blood 2+ (NEG); Urine Ketones >=80 MG/DL (NEG); Urine Protein 1+ MG/DL (NEG-TRACE)
[2022-01-13 16:47] LABS: WBC Urine 0 /HPF (0-4)
[2022-01-13 16:48] LABS: Squamous Epithelial Cell Urine TRACE /LPF
--- NOTE | 2022-01-13 17:06 | P.HPHOSP_ITS ---
History of Present Illness Date of Service: 01/13/22 <Danni Borges NP - Last Filed: 01/14/22 11:01> Chief Complaint: Hematemesis <Danni Borges NP - Last Filed: 01/14/22 11:01> 42-year-old man presenting with complaints of coffee-ground emesis over the last several days with abdominal pain. He also reported dark loose stools however occult was negative. He denies fever, chills, recent travel, sick contacts. He does have a history of gastritis. He denies heavy use of NSAIDs and is not on anticoagulants. H&H has remained stable. Multiple abnormal electrolytes. Vital signs are stable. He was given IV Pepcid, IV fluid and pain medication in the ER. He will be admitted for further management acute GI bleed. <Danni Borges NP - Last Filed: 01/14/22 11:01> Review of Systems Review of Systems: Denies any recent fever chills or decrease in appetite respiratory denies any shortness of breath coverage production cardiovascular Denies chest pain gastrointestinal See HPI genitourinary denies any dysuria frequency or hematuria musculoskeletal denies any joint pain or swelling neuropsych denies any weakness or seizures all other systems reviewed are negative <Danni Borges NP - Last Filed: 01/14/22 11:01> [facility] Medical History: Medical History Anemia Cerebral palsy Elevated alkaline phosphatase level GERD (gastroesophageal reflux disease) Insomnia 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 <Danni Borges NP - Last Filed: 01/14/22 11:01> Surgical History: Surgical History History of esophagogastroduodenoscopy (EGD) Hx of esophagitis Hx of foot surgery <Danni Borges NP - Last Filed: 01/14/22 11:01> Social History: 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 have visiting nurse or other home services: Yes (reel man) Alcohol intake: current Alcohol intake frequency: a few times a month Alcohol type: beer and hard liquor Patient Tobacco Use Status: Former Tobacco user Tobacco use type: Cigarette e-Cigarette/Vaping Use: Never Used Second Hand Smoke Exposure: No Substance Use Type: Marijuana service: No Current occupational status: disabled <Danni Borges NP - Last Filed: 01/14/22 11:01> Meds Allergies/Adverse reactions: Allergies Allergy/AdvReac Type Severity Reaction Status Date / Time No Known Allergies Allergy Verified 01/13/22 12:35 <Danni Borges NP - Last Filed: 01/14/22 11:01> Active Medications: Current Medications Acetaminophen (Acetaminophen 325 Mg Tablet) 650 mg PO Q6H PRN PRN Reason: Pain, Mild (Pain Scale 1-3) Ondansetron HCl (Ondansetron Hcl 4 Mg/2 Ml Vial) 4 mg IVPUSH Q8H PRN PRN Reason: Nausea and Vomiting Pantoprazole Sodium (Pantoprazole Sodium 40 Mg/10 Ml Vial) 40 mg IVPUSH BID@0630,1630 [facility] Pharmacy Consult (Consult Rx Perform Med Rec) 1 each MISCELLANE ONCE PRN PRN Reason: Consult order Sodium Chloride (0.9 % Sodium Chloride Flush 3 Ml Syringe) 3 ml IVFLUSH QSHIFT [facility] <Danni Borges NP - Last Filed: 01/14/22 11:01> Physical Exam Vital Signs and Narrative: Vital Signs: Last Vital Signs Temp 97.7 F 01/13/22 16:25 Pulse 86 01/13/22 16:25 Resp 18 01/13/22 16:25 BP 112/67 01/13/22 16:25 Pulse Ox 99 01/13/22 16:25 BMI result Body Mass Index 18.8 <Danni Borges NP - Last Filed: 01/14/22 11:01> Appearing in no acute distress head is normocephalic atraumatic eyes pupils are PERRLA sclera is anicteric mouth throat mucous membranes are intact and moist neck is supple no lymphadenopathy, no JVD noted lung sounds are clear to auscultation heart regular rate rhythm, clear S1, S2 positive bowel sounds, abdomen is soft, nontender neuro patient is alert x3, no focal deficits <Danni Borges NP - Last Filed: 01/14/22 11:01> Results Labs CBC and Chem 7: : 01/16/22 05:53 01/16/22 05:53 <Danni Borges NP - Last Filed: 01/14/22 11:01> Labs: Laboratory Results - last 24 hr 01/13/22 01/13/22 01/13/22 13:46 13:46 13:46 MCV 86.6 MCH 30.8 MCHC 35.5 RDW 11.7 Plt Count 200 MPV Not Reportable Immature Gran % (Auto) 0.3 Neut % (Auto) 87.9 H Lymph % (Auto) 7.8 L [place] % (Auto) 3.8 Eos % (Auto) 0.1 Baso % (Auto) 0.1 Lymph # (Auto) 1.1 L [place] # (Auto) 0.6 Eos # (Auto) 0.0 Baso # (Auto) 0.0 Abs Immat Gran (auto) 0.05 H Absolute Neuts (auto) 12.9 H Absolute Nucleated RBC 0.000 Nucleated RBC % (auto) 0.0 Smear Tech's Comments VERIFIED PT INR APTT Anion Gap 27 H Estim Creat Clear Calc 52.9 Estimated GFR 56 Random Glucose 336 H Lactic Acid 1.5 Calcium 9.9 D Magnesium 2.2 Total Bilirubin 2.1 H Direct Bilirubin 0.5 AST 33 D ALT 39 Alkaline Phosphatase 83 D Total Protein 8.9 H D Albumin 5.0 Urine Color Urine Appearance Urine pH Ur Specific [place] Urine Protein Urine Glucose (UA) Urine Ketones Urine Blood Urine Nitrite Ur Leukocyte Esterase Urine RBC Urine WBC Ur Squamous Epith Cells Urine Bacteria Stool Occult Blood COVID-19 (ANIKA) COVID-19 Clin Com 01/13/22 01/13/22 01/13/22 13:46 14:24 14:31 MCV MCH MCHC RDW Plt Count MPV Immature Gran % (Auto) Neut % (Auto) Lymph % (Auto) [place] % (Auto) Eos % (Auto) Baso % (Auto) Lymph # (Auto) [place] # (Auto) Eos # (Auto) Baso # (Auto) Abs Immat Gran (auto) Absolute Neuts (auto) Absolute Nucleated RBC Nucleated RBC % (auto) Smear Tech's Comments PT 11.8 INR 1.0 APTT 28.4 Anion Gap Estim Creat Clear Calc Estimated GFR Random Glucose Lactic Acid Calcium Magnesium Total Bilirubin Direct Bilirubin AST ALT Alkaline Phosphatase Total Protein Albumin Urine Color Urine Appearance Urine pH Ur Specific [place] Urine Protein Urine Glucose (UA) Urine Ketones Urine Blood Urine Nitrite Ur Leukocyte Esterase Urine RBC Urine WBC Ur Squamous Epith Cells Urine Bacteria Stool Occult Blood NEGATIVE COVID-19 (ANIKA) Negative COVID-19 Clin Com See Note 01/13/22 16:24 MCV MCH MCHC RDW Plt Count MPV Immature Gran % (Auto) Neut % (Auto) Lymph % (Auto) [place] % (Auto) Eos % (Auto) Baso % (Auto) Lymph # (Auto) [place] # (Auto) Eos # (Auto) Baso # (Auto) Abs Immat Gran (auto) Absolute Neuts (auto) Absolute Nucleated RBC Nucleated RBC % (auto) Smear Tech's Comments PT INR APTT Anion Gap Estim Creat Clear Calc Estimated GFR Random Glucose Lactic Acid Calcium Magnesium Total Bilirubin Direct Bilirubin AST ALT Alkaline Phosphatase Total Protein Albumin Urine Color STRAW Urine Appearance CLEAR Urine pH 5.5 Ur Specific [place] 1.020 Urine Protein 1+ H Urine Glucose (UA) 500 H Urine Ketones >=80 Urine Blood 2+ H Urine Nitrite NEG Ur Leukocyte Esterase NEG Urine RBC 5-9 H Urine WBC 0 Ur Squamous Epith Cells TRACE Urine Bacteria NONE Stool Occult Blood COVID-19 (ANIKA) COVID-19 Clin Com <Danni Borges NP - Last Filed: 01/14/22 11:01> Imaging Radiologist's Impressions: Impressions Abdomen/Pelvis CT 01/13/22 15:10 IMPRESSION: An etiology for the patient's GI bleed has not been found. Incidental findings as described above. Including nonobstructing right renal calculi and BPH. Fleischner guidelines were followed. <Danni Borges NP - Last Filed: 01/14/22 11:01> Assessment and Plan (1) Dark stools: Status: Acute <Danni Borges NP - Last Filed: 01/14/22 11:01> Plan 42 year old man admitted with GI bleed including coffee grounds and hematemesis. Patient likely requires 2 midnights in the hospital due to necessitating IV ppi, IV fluids and correcting of electrolyte abnormalities. Acute upper and lower GI bleed Not on any anticoagulation Stable H&H at this time IV PPI GI consultation, will likely need endoscopy and colonoscopy Follow H&H closely, no anemia noted as of yet Clear liquid diet then NPO after midnight Hyponatremia. Likely related to fluid losses IV fluids Anion gap. Secondary to fluid losses from vomiting Assess for DKA, less likely versus anion gap metabolic acidosis Multiple electrolyte abnormalities Check VBG, repeat BMP to assess anion gap and bicarb, acetone GRAY Secondary to fluid losses IV fluids Follow BMP Avoid nephrotoxins Diabetes mellitus Sliding scale History of cerebral palsy Depression not on home medications DVT prophylaxis mechanical compression boots due to GI bleed Attending Dr. Trivedi Full code <Danni Borges NP - Last Filed: 01/14/22 11:01> Quality Stroke Does the patient have a stroke diagnosis?: No <Danni Borges NP - Last Filed: 01/14/22 11:01> VTE Prior VTE?: No <Danni Borges NP - Last Filed: 01/14/22 11:01> VTE Risk Level:: Medical - moderate - high <Danni Borges NP - Last Filed: 01/14/22 11:01> VTE Device Contraindication: N/A - Device Ordered <Danni Borges NP - Last Filed: 01/14/22 11:01> VTE Drug Contraindication: Treatment Not Indicated <Danni Borges NP - Last Filed: 01/14/22 11:01>
--- NOTE | 2022-01-13 17:20 | PHA.MEDREC ---
Pharmacy Consult ? Medication Reconciliation Pharmacy has completed the medication reconciliation.
[2022-01-13] MEDS: Pantoprazole Sodium 40 MG/10 ML VIAL 80 MG IVPUSH (17:23)
[2022-01-13 17:51] LABS: MANUAL DIFF FLAG NO
[2022-01-13 17:59] LABS: Basophils Percent Auto 0.1 % (0-2); Hematocrit 45.1 % (42.0-52.0); Hemoglobin 16.1 g/dl (14.0-18.0); Imm Gran Abs Auto 0.05 X10*3/uL (0.00-0.03); Imm Gran Pct Auto 0.4 % (0.0-0.4); Lymphocytes Absolute Auto 1.5 X10*3/uL (1.2-4.9); Lymphocytes Percent Auto 10.7 % (20-40); Mean Corpuscular HGB Conc 35.7 g/dl (31.0-36.0); Mean Corpuscular Hemoglobin 30.7 pg (27.0-33.0); Mean Corpuscular Volume 85.9 fL (80.0-98.0); Mean Platelet Volume 9.3 fL (9.4-12.4); Monocytes Absolute Auto 0.6 X10*3/uL (0.1-1.2); Monocytes Percent Auto 4.3 % (2-11); Neutrophils Percent Auto 84.5 % (45-73); Platelet Count 265 X10*3/uL (160-400); Red Blood Count 5.25 X10*6/uL (4.60-5.80); Red Cell Distribution Width 11.8 % (11.0-16.0); White Blood Count 14.2 X10*3/uL (4.8-10.8)
[2022-01-13 18:00] LABS: Venous Blood Gas Refer to POC result
[2022-01-13 18:05] LABS: VBG pCO2 32 mmHg; VBG pH 7.37 (7.32-7.43)
[2022-01-13 18:06] LABS: VBG Base Excess -4.5 mmol/L; VBG HCO3 19 mmol/L (22-26); VBG pO2 77 mmHg
[2022-01-13 18:08] LABS: Anion Gap 21 (12-20); Blood Urea Nitrogen 26 mg/dL (9-16); Calcium 9.5 mg/dL (8.4-10.2); Carbon Dioxide 22 mmol/L (22-29); Chloride 97 mmol/L (96-108); Creatinine Clr Calc Pharmacy 60.9; Estimated Glomerular Filt Rate > 60; Glucose Random 265 mg/dL (60-115); Potassium 3.7 mmol/L (3.3-5.1); Sodium 136 mmol/L (135-145)
[2022-01-13 18:45] LABS: Acetone, serum QL Moderate (Negative)
--- NOTE | 2022-01-13 19:16 | MHC.SHP ---
Pre-Procedural Eval Section A Date of Service: 01/14/22 The patient is an INPATIENT: Yes The History & Physical has been completed within 30 days and I have reviewed it.: Yes Section B Chief Complaint: GI Bleed Allergies: Allergies Allergy/AdvReac Type Severity Reaction Status Date / Time No Known Allergies Allergy Verified 01/13/22 12:35 Plan I have reviewed the history and physical and performed a pertinent physical examination on my patient. No changes have occurred unless specified.
--- NOTE | 2022-01-13 19:21 | PM.EVENT ---
Event Note Date of Service: 01/13/22 Event Note: GI Consult-Full note dictated Imp: UGI bleed in a 42 yo male followed by Dr. Cano with a history of previous esophagitis, pyloric stricture s/p balloon dilation, and gastroparesis. His last EGD's were in 2019. He presents with upper abdominal pain, coffee grounds emesis, and small amounts of hematemesis. Denies BRBPR or melena. He has been off his omeprazole for months for some reason. He denies EtOH or NSAIDS. He presently appears stable without signs of active bleeding. Dif dx: Erosive esophagitis, PUD, erosive gastritis, Naina-Talley tear Rec: IV PPI. EGD tomorrow with Dr. Cano. F/U labs in AM. Clear liqs tonight, then NPO. D/W patient and he is comfortable with the plan. Thanks
[2022-01-13 20:32] VITALS: BP 123/85; PULSE 77; RESP 18; TEMP 37.1; O2SAT 99
[2022-01-13] MEDS: HYDROmorphone HCl 0.5 MG/0.5 ML SYRINGE 0.25 MG IVPUSH (23:02)
--- NOTE | 2022-01-13 23:25 | CONS_ITS ---
DATE OF SERVICE: 01/13/2022 REASON FOR CONSULTATION: Upper GI bleeding. HISTORY OF PRESENT ILLNESS: The patient is a 42-year-old male with a history of previous esophagitis, seen on upper endoscopies in the past. He has been followed by Dr. Cano and most recently underwent upper endoscopies in 2018. His upper endoscopy in January 2019 revealed evidence of erosive esophagitis, mild gastritis, and duodenitis. He did have a followup upper endoscopy in June 2019, which revealed improvement with healed esophagitis, although, there was evidence of a pyloric stricture, which was dilated with a 20 mm balloon. He had been on PPI treatment subsequent to that, but reports that he stopped that months ago. This was bothering his stomach, and he has not had any replacement for it as far as he knows. His biopsies from the endoscopy in June 2019 did not reveal any Castrejon's esophagus nor Nidhi esophagitis. Biopsies in January 2019 were negative for celiac disease and negative for H pylori. He reports that things were fairly stable until the past 2-3 days when he began having some upper abdominal pain with associated vomiting. He describes coffee-ground emesis and some bright red blood in the vomit as well. He denies melena, nor hematochezia. He denies any jaundice. He smokes occasional marijuana but does not use any tobacco nor alcohol. He does not use any NSAIDs. He reports he has been eating fairly well, but does describe a sense of dysphagia, but without symptoms of esophageal obstruction. Since arrival in the ER he did have some coffee-grounds emesis, but has otherwise been stable. MEDICATIONS: At home include pioglitazone. PAST MEDICAL HISTORY: Esophagitis, pyloric stricture, and gastroparesis documented on previous nuclear medicine gastric emptying study. Cerebral palsy with several surgeries on his lower extremities. Diabetes mellitus. He denies any history of [place], stroke, nor lung disease. He denies any other surgeries. SOCIAL HISTORY: He is single and lives by himself. As above. FAMILY HISTORY: Noncontributory. REVIEW OF SYSTEMS: CONSTITUTIONAL: He has been feeling poorly at home in regard to his recent GI complaints. CARDIAC: No chest pain. PULMONARY: No coughing or hemoptysis. GI: As above. PHYSICAL EXAMINATION: GENERAL: The patient is a thin, alert male, in no distress. SKIN: Warm and dry. Anicteric sclerae. NECK: Supple. CARDIAC: Normal S1, S2. ABDOMEN: Soft, nondistended with epigastric tenderness to palpation without mass or rebound. LABORATORY DATA: White blood cell count 14.2. Hemoglobin at 1:46 p.m. was 16.8 and repeat at 5:45 p.m. was 16.1. Hemoglobin in December 2021 was 14.8. Platelets 265,000. PT 11.8 with INR 1.0. Normal electrolytes. BUN 26, creatinine 1.2, total bilirubin 2.1, direct bilirubin 0.5, AST 33, ALT 39, alkaline phosphatase 83, albumin 5.06. Stool was Hemoccult negative in the ER. CT of the abdomen and pelvis was negative for any acute pathology and specifically did not show any specific GI pathology nor any sign of bleeding. IMPRESSION: Given the patient's clinical history, I would recommend an upper endoscopy given his last exam being in 2018 and his current presentation. He may very well have developed recurrent esophagitis, gastritis, and/or ulcer disease while off his PPI. At this point, he appears stable. He will be kept on clear liquids and then n.p.o. after midnight. He will be kept on IV pantoprazole and have followup laboratories in the morning. I did advise him that the procedure most likely would be done by Dr. Cano or Dr. Elizabeth. The patient was comfortable with this plan. Thank you for this consultation. MD WIL Arzola/CHEKO / [id number] MTDD
[2022-01-14] VITALS (7 sets, daily range): BP systolic 118–149; BP diastolic 63–80; PULSE 72–89; RESP 13–18; TEMP 36.1–37.4; O2SAT 96–99; BMI 18.8
[2022-01-14] MEDS: ondansetron HCL 4 MG/2 ML VIAL IVPUSH ×2 (01:06→22:37)
[2022-01-14] MEDS: HYDROmorphone HCl 0.5 MG/0.5 ML SYRINGE 0.25 MG IVPUSH ×5 (03:15→22:29)
[2022-01-14 06:52] LABS: MANUAL DIFF FLAG NO
[2022-01-14 07:05] LABS: Basophils Percent Auto 0.1 % (0-2); Hematocrit 43.4 % (42.0-52.0); Hemoglobin 15.2 g/dl (14.0-18.0); Imm Gran Abs Auto 0.06 X10*3/uL (0.00-0.03); Imm Gran Pct Auto 0.5 % (0.0-0.4); Lymphocytes Absolute Auto 1.7 X10*3/uL (1.2-4.9); Mean Corpuscular Volume 88.6 fL (80.0-98.0); Mean Platelet Volume 9.4 fL (9.4-12.4); Monocytes Absolute Auto 0.8 X10*3/uL (0.1-1.2); Monocytes Percent Auto 5.8 % (2-11); Neutrophils Absolute Auto 10.7 x10*3/uL (2.0-8.3); Neutrophils Percent Auto 80.6 % (45-73); Platelet Count 217 X10*3/uL (160-400); Red Cell Distribution Width 11.9 % (11.0-16.0); White Blood Count 13.3 X10*3/uL (4.8-10.8)
[2022-01-14 07:09] LABS: Anion Gap 20 (12-20); Blood Urea Nitrogen 21 mg/dL (9-16); Carbon Dioxide 21 mmol/L (22-29); Chloride 102 mmol/L (96-108); Creatinine Clr Calc Pharmacy 71.1; Estimated Glomerular Filt Rate > 60; Glucose Random 208 mg/dL (60-115); Potassium 4.1 mmol/L (3.3-5.1); Sodium 139 mmol/L (135-145)
[2022-01-14] MEDS: Pantoprazole Sodium 40 MG/10 ML VIAL IVPUSH ×2 (08:57→16:28)
[2022-01-14] MEDS: 0.9 % Sodium Chloride Flush 3 ML SYRINGE IVFLUSH (09:01)
--- NOTE | 2022-01-14 09:03 | PC.NURSE ---
Pt is A&Ox3, LCA, pain 10/ at this time, NSR on monitor, no active vomiting or diarrhea. Plan for EGD today, pt aware NPO until after. No insulin coverage given due to being NPO. Call velásquez within reach. Will continue to monitor.
[2022-01-14 09:06] LABS: Glucose, Whole Blood 207 mg/dL (60-115)
--- NOTE | 2022-01-14 11:01 | HO.PM.IMPN ---
Subjective Subjective Date of Service: 01/14/22 Review of Systems Follow u up GI bleed Still with nausea and abd pain Physical Exam Vital Signs: Vital Signs: Last Vital Signs Temp 99.3 F 01/14/22 09:18 Pulse 78 01/14/22 09:18 Resp 13 01/14/22 09:18 BP 133/63 01/14/22 09:18 Pulse Ox 98 01/14/22 09:18 BMI result Body Mass Index 18.8 Appearing in no acute distress, pale and thin lung sounds are clear to auscultation heart regular rate rhythm, clear S1, S2 positive bowel sounds, abdomen is soft, diffusely tender neuro patient is alert x3, no focal deficits Objective Data Active Medications Acetaminophen (Acetaminophen 325 Mg Tablet) 650 mg PO Q6H PRN PRN Reason: Pain, Mild (Pain Scale 1-3) Dextrose (Dextrose 50 % 25 Gm/50 Ml Vial) 25 gm IVPUSH Q15M PRN; Protocol PRN Reason: per Hypoglycemia Standing Ord. Glucose (Glucose Gel 15 Gm Gel..Gram.) 15 gm PO Q15M PRN; Protocol PRN Reason: per Hypoglycemia Standing Ord. Hydromorphone HCl (Hydromorphone Hcl 0.5 Mg/0.5 Ml Syringe) 0.25 mg IVPUSH Q4H PRN; Protocol PRN Reason: Breakthrough Pain Last Admin: 01/14/22 08:57 Dose: 0.25 mg Documented by: BATSHVEA Insulin Human Lispro (Insulin Lispro 100 Unit/Ml 3 Ml Vial) 0 unit SUBCUT QIDACHS FOR[facility]LY [facility], 1928–1983; Protocol Last Admin: 01/14/22 09:01 Dose: Not Given Documented by: BATSHEVA Non-Admin Reason: NPO Ondansetron HCl (Ondansetron Hcl 4 Mg/2 Ml Vial) 4 mg IVPUSH Q8H PRN PRN Reason: Nausea and Vomiting Last Admin: 01/14/22 01:06 Dose: 4 mg Documented by: JUSTICE Pantoprazole Sodium (Pantoprazole Sodium 40 Mg/10 Ml Vial) 40 mg IVPUSH BID@0630,1630 [facility], 1928–1983 Last Admin: 01/14/22 08:57 Dose: 40 mg Documented by: BATSHEVA Pharmacy Consult (Consult Rx Perform Med Rec) 1 each MISCELLANE ONCE PRN PRN Reason: Consult order Sodium Chloride (0.9 % Sodium Chloride Flush 3 Ml Syringe) 3 ml IVFLUSH QSHIFT [facility], 1928[facility]1983 Last Admin: 01/14/22 09:01 Dose: 3 ml Documented by: BATSHEVA Labs CBC & Chem 7: 01/14/22 06:36 01/14/22 06:36 Labs: Laboratory Results - last 24 hr 01/13/22 01/13/22 01/13/22 13:46 13:46 13:46 MCV 86.6 MCH 30.8 MCHC 35.5 RDW 11.7 Plt Count 200 MPV Not Reportable Immature Gran % (Auto) 0.3 Neut % (Auto) 87.9 H Lymph % (Auto) 7.8 L [place] % (Auto) 3.8 Eos % (Auto) 0.1 Baso % (Auto) 0.1 Lymph # (Auto) 1.1 L [place] # (Auto) 0.6 Eos # (Auto) 0.0 Baso # (Auto) 0.0 Abs Immat Gran (auto) 0.05 H Absolute Neuts (auto) 12.9 H Absolute Nucleated RBC 0.000 Nucleated RBC % (auto) 0.0 Smear Tech's Comments VERIFIED PT INR APTT VBG pH VBG pCO2 VBG pO2 VBG HCO3 VBG O2 Saturation VBG Base Excess Anion Gap 27 H Estim Creat Clear Calc 52.9 Estimated GFR 56 POC Glucose Random Glucose 336 H Lactic Acid 1.5 Calcium 9.9 D Magnesium 2.2 Total Bilirubin 2.1 H Direct Bilirubin 0.5 AST 33 D ALT 39 Alkaline Phosphatase 83 D Total Protein 8.9 H D Albumin 5.0 Urine Color Urine Appearance Urine pH Ur Specific [place] Urine Protein Urine Glucose (UA) Urine Ketones Urine Blood Urine Nitrite Ur Leukocyte Esterase Urine RBC Urine WBC Ur Squamous Epith Cells Urine Bacteria Stool Occult Blood Acetone, Qual COVID-19 (ANIKA) COVID-19 Clin Com 01/13/22 01/13/22 01/13/22 13:46 14:24 14:31 MCV MCH MCHC RDW Plt Count MPV Immature Gran % (Auto) Neut % (Auto) Lymph % (Auto) [place] % (Auto) Eos % (Auto) Baso % (Auto) Lymph # (Auto) [place] # (Auto) Eos # (Auto) Baso # (Auto) Abs Immat Gran (auto) Absolute Neuts (auto) Absolute Nucleated RBC Nucleated RBC % (auto) Smear Tech's Comments PT 11.8 INR 1.0 APTT 28.4 VBG pH VBG pCO2 VBG pO2 VBG HCO3 VBG O2 Saturation VBG Base Excess Anion Gap Estim Creat Clear Calc Estimated GFR POC Glucose Random Glucose Lactic Acid Calcium Magnesium Total Bilirubin Direct Bilirubin AST ALT Alkaline Phosphatase Total Protein Albumin Urine Color Urine Appearance Urine pH Ur Specific [place] Urine Protein Urine Glucose (UA) Urine Ketones Urine Blood Urine Nitrite Ur Leukocyte Esterase Urine RBC Urine WBC Ur Squamous Epith Cells Urine Bacteria Stool Occult Blood NEGATIVE Acetone, Qual COVID-19 (ANIKA) Negative COVID-19 [employer] See Note 01/13/22 01/13/22 01/13/22 16:24 17:45 17:45 MCV MCH MCHC RDW Plt Count MPV Immature Gran % (Auto) Neut % (Auto) Lymph % (Auto) [place] % (Auto) Eos % (Auto) Baso % (Auto) Lymph # (Auto) [place] # (Auto) Eos # (Auto) Baso # (Auto) Abs Immat Gran (auto) Absolute Neuts (auto) Absolute Nucleated RBC Nucleated RBC % (auto) Smear Tech's Comments PT INR APTT VBG pH VBG pCO2 VBG pO2 VBG HCO3 VBG O2 Saturation VBG Base Excess Anion Gap 21 H Estim Creat Clear Calc 60.9 Estimated GFR > 60 POC Glucose Random Glucose 265 H Lactic Acid Calcium 9.5 Magnesium Total Bilirubin Direct Bilirubin AST ALT Alkaline Phosphatase Total Protein Albumin Urine Color STRAW Urine Appearance CLEAR Urine pH 5.5 Ur Specific [place] 1.020 Urine Protein 1+ H Urine Glucose (UA) 500 H Urine Ketones >=80 Urine Blood 2+ H Urine Nitrite NEG Ur Leukocyte Esterase NEG Urine RBC 5-9 H Urine WBC 0 Ur Squamous Epith Cells TRACE Urine Bacteria NONE Stool Occult Blood Acetone, Qual Moderate H COVID-19 (ANIKA) COVID-19 [employer] 01/13/22 01/13/22 01/14/22 17:45 17:45 06:36 MCV 85.9 88.6 MCH 30.7 31.0 MCHC 35.7 35.0 RDW 11.8 11.9 Plt Count 265 D 217 MPV 9.3 L 9.4 Immature Gran % (Auto) 0.4 0.5 H Neut % (Auto) 84.5 H 80.6 H Lymph % (Auto) 10.7 L 13.0 L [place] % (Auto) 4.3 5.8 Eos % (Auto) 0.0 0.0 Baso % (Auto) 0.1 0.1 Lymph # (Auto) 1.5 1.7 [place] # (Auto) 0.6 0.8 Eos # (Auto) 0.0 0.0 Baso # (Auto) 0.0 0.0 Abs Immat Gran (auto) 0.05 H 0.06 H Absolute Neuts (auto) 12.0 H 10.7 H Absolute Nucleated RBC 0.000 0.000 Nucleated RBC % (auto) 0.0 0.0 Smear Tech's Comments PT INR APTT VBG pH 7.37 VBG pCO2 32 VBG pO2 77 VBG HCO3 19 L VBG O2 Saturation 93.0 VBG Base Excess -4.5 Anion Gap Estim Creat Clear Calc Estimated GFR POC Glucose Random Glucose Lactic Acid Calcium Magnesium Total Bilirubin Direct Bilirubin AST ALT Alkaline Phosphatase Total Protein Albumin Urine Color Urine Appearance Urine pH Ur Specific [place] Urine Protein Urine Glucose (UA) Urine Ketones Urine Blood Urine Nitrite Ur Leukocyte Esterase Urine RBC Urine WBC Ur Squamous Epith Cells Urine Bacteria Stool Occult Blood Acetone, Qual COVID-19 (ANIKA) COVID-19 [employer] 01/14/22 01/14/22 06:36 09:00 MCV MCH MCHC RDW Plt Count MPV Immature Gran % (Auto) Neut % (Auto) Lymph % (Auto) [place] % (Auto) Eos % (Auto) Baso % (Auto) Lymph # (Auto) [place] # (Auto) Eos # (Auto) Baso # (Auto) Abs Immat Gran (auto) Absolute Neuts (auto) Absolute Nucleated RBC Nucleated RBC % (auto) Smear Tech's Comments PT INR APTT VBG pH VBG pCO2 VBG pO2 VBG HCO3 VBG O2 Saturation VBG Base Excess Anion Gap 20 Estim Creat Clear Calc 71.1 Estimated GFR > 60 POC Glucose 207 H Random Glucose 208 H Lactic Acid Calcium 9.0 Magnesium Total Bilirubin Direct Bilirubin AST ALT Alkaline Phosphatase Total Protein Albumin Urine Color Urine Appearance Urine pH Ur Specific [place] Urine Protein Urine Glucose (UA) Urine Ketones Urine Blood Urine Nitrite Ur Leukocyte Esterase Urine RBC Urine WBC Ur Squamous Epith Cells Urine Bacteria Stool Occult Blood Acetone, Qual COVID-19 (ANIKA) COVID-19 [employer] Assessment and Plan (1) Hematemesis: Status: Acute Plan 42 year old man admitted with GI bleed including coffee grounds and hematemesis. ? Patient likely requires 2 midnights in the hospital due to necessitating IV ppi, IV fluids and correcting of electrolyte abnormalities. Acute upper and lower GI bleed Not on any anticoagulation Stable H&H at this time IV PPI GI following, plan for scope today Follow H&H closely, no anemia noted as of yet Clear liquid diet then NPO after midnight Hyponatremia. Resolved Likely related to fluid losses IV fluids Anion gap. Resolved Secondary to fluid losses from vomiting Assess for DKA, less likely versus anion gap metabolic acidosis Multiple electrolyte abnormalities Check VBG, repeat BMP to assess anion gap and bicarb, acetone GRAY Secondary to fluid losses IV fluids Follow BMP Avoid nephrotoxins Diabetes mellitus Sliding scale History of cerebral palsy Depression not on home medications DVT prophylaxis mechanical compression boots due to GI bleed Attending Dr. Gomes Full code Patient requires continued hospitalization due to GI bleed requiring plan for inpatient endoscopy /colonoscopy, on IV PPI Quality Stroke Does the patient have a stroke diagnosis?: No VTE Prior VTE?: No VTE Risk Level:: Medical - moderate - high VTE Device Contraindication: N/A - Device Ordered VTE Drug Contraindication: Treatment Not Indicated
[2022-01-14] MEDS: 0.9 % Sodium Chloride 1,000 ML 100 ML IVCONT (12:37)
[2022-01-14 13:25] LABS: Glucose, Whole Blood 207 mg/dL (60-115)
[2022-01-14 13:53] LABS: Glucose, Whole Blood 222 mg/dL (60-115)
--- NOTE | 2022-01-14 14:05 | P.CONAN_ITS ---
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 Surgical History Surgical History History of esophagogastroduodenoscopy (EGD) Hx of esophagitis Hx of foot surgery History of Problems with Anesthesia: No Social History Social History Household Members: None Housing: Apartment Alcohol intake: current Alcohol intake frequency: a few times a month Alcohol type: beer and hard liquor Patient Tobacco Use Status: Former Tobacco user Tobacco use type: Cigarette e-Cigarette/Vaping Use: Never Used Second Hand Smoke Exposure: No Use of substances other than those prescribed or required for medical reasons: Yes Substance Use Type: Other Substance Use Type Other:: weed Substance Use Frequency: Daily Any prior treatment program specific to substance use: No Advance Directives: No Advance Directives Information Provided: No service: No Current occupational status: disabled Meds Allergies Allergy/AdvReac Type Severity Reaction Status Date / Time No Known Allergies Allergy Verified 01/13/22 12:35 Active Medications: Current Medications Acetaminophen (Acetaminophen 325 Mg Tablet) 650 mg PO Q6H PRN PRN Reason: Pain, Mild (Pain Scale 1-3) Dextrose (Dextrose 50 % 25 Gm/50 Ml Vial) 25 gm IVPUSH Q15M PRN; Protocol PRN Reason: per Hypoglycemia Standing Ord. Glucose (Glucose Gel 15 Gm Gel..Gram.) 15 gm PO Q15M PRN; Protocol PRN Reason: per Hypoglycemia Standing Ord. Hydromorphone HCl (Hydromorphone Hcl 0.5 Mg/0.5 Ml Syringe) 0.25 mg IVPUSH Q4H PRN; Protocol PRN Reason: Breakthrough Pain Last Admin: 01/14/22 12:50 Dose: 0.25 mg Documented by: Sodium Chloride (Ns) 1,000 mls @ 100 mls/hr IVCONT .Q10H [facility] Last Admin: 01/14/22 12:37 Dose: 100 mls/hr Documented by: Insulin Human Lispro (Insulin Lispro 100 Unit/Ml 3 Ml Vial) 0 unit SUBCUT QIDACHS [facility]; Protocol Last Admin: 01/14/22 13:37 Dose: Not Given Documented by: Ondansetron HCl (Ondansetron Hcl 4 Mg/2 Ml Vial) 4 mg IVPUSH Q8H PRN PRN Reason: Nausea and Vomiting Last Admin: 01/14/22 01:06 Dose: 4 mg Documented by: Pantoprazole Sodium (Pantoprazole Sodium 40 Mg/10 Ml Vial) 40 mg IVPUSH BID@0630,1630 [facility] Last Admin: 01/14/22 08:57 Dose: 40 mg Documented by: Pharmacy Consult (Consult Rx Perform Med Rec) 1 each MISCELLANE ONCE PRN PRN Reason: Consult order Sodium Chloride (0.9 % Sodium Chloride Flush 3 Ml Syringe) 3 ml IVFLUSH QSHIFT [facility] Last Admin: 01/14/22 09:01 Dose: 3 ml Documented by: Exam Exam Date and Time: January 14, 2022 1405 Height,Weight and Vital Signs: Height 5 ft 7 in Weight 54.431 kg Last Vital Signs Temp 97.0 F 01/14/22 13:55 Pulse 72 01/14/22 13:55 Resp 15 01/14/22 13:55 BP 149/80 H 01/14/22 13:55 Pulse Ox 97 01/14/22 13:55 Pertinent Lab Results Pertinent Lab Results: Laboratory Tests 01/13/22 01/13/22 01/13/22 13:46 13:46 13:46 WBC 14.7 H RBC 5.46 Hgb 16.8 Hct 47.3 MCV 86.6 MCH 30.8 MCHC 35.5 RDW 11.7 Plt Count 200 MPV Not Reportable Immature Gran % (Auto) 0.3 Neut % (Auto) 87.9 H Lymph % (Auto) 7.8 L [place] % (Auto) 3.8 Eos % (Auto) 0.1 Baso % (Auto) 0.1 Lymph # (Auto) 1.1 L [place] # (Auto) 0.6 Eos # (Auto) 0.0 Baso # (Auto) 0.0 Abs Immat Gran (auto) 0.05 H Absolute Neuts (auto) 12.9 H Absolute Nucleated RBC 0.000 Nucleated RBC % (auto) 0.0 Smear Tech's Comments VERIFIED PT INR APTT VBG pH VBG pCO2 VBG pO2 VBG HCO3 VBG O2 Saturation VBG Base Excess Sodium 129 L Potassium 4.9 Chloride 91 L Carbon Dioxide 16 L Anion Gap 27 H BUN 30 H D Creatinine 1.37 Estim Creat Clear Calc 52.9 Estimated GFR 56 POC Glucose Random Glucose 336 H Lactic Acid 1.5 Calcium 9.9 D Magnesium 2.2 Total Bilirubin 2.1 H Direct Bilirubin 0.5 AST 33 D ALT 39 Alkaline Phosphatase 83 D Total Protein 8.9 H D Albumin 5.0 Urine Color Urine Appearance Urine pH Ur Specific [place] Urine Protein Urine Glucose (UA) Urine Ketones Urine Blood Urine Nitrite Ur Leukocyte Esterase Urine RBC Urine WBC Ur Squamous Epith Cells Urine Bacteria Stool Occult Blood Acetone, Qual COVID-19 (ANIKA) COVID-19 Clin Com 01/13/22 01/13/22 01/13/22 13:46 14:24 14:31 WBC RBC Hgb Hct MCV MCH MCHC RDW Plt Count MPV Immature Gran % (Auto) Neut % (Auto) Lymph % (Auto) [place] % (Auto) Eos % (Auto) Baso % (Auto) Lymph # (Auto) [place] # (Auto) Eos # (Auto) Baso # (Auto) Abs Immat Gran (auto) Absolute Neuts (auto) Absolute Nucleated RBC Nucleated RBC % (auto) Smear Tech's Comments PT 11.8 INR 1.0 APTT 28.4 VBG pH VBG pCO2 VBG pO2 VBG HCO3 VBG O2 Saturation VBG Base Excess Sodium Potassium Chloride Carbon Dioxide Anion Gap BUN Creatinine Estim Creat Clear Calc Estimated GFR POC Glucose Random Glucose Lactic Acid Calcium Magnesium Total Bilirubin Direct Bilirubin AST ALT Alkaline Phosphatase Total Protein Albumin Urine Color Urine Appearance Urine pH Ur Specific [place] Urine Protein Urine Glucose (UA) Urine Ketones Urine Blood Urine Nitrite Ur Leukocyte Esterase Urine RBC Urine WBC Ur Squamous Epith Cells Urine Bacteria Stool Occult Blood NEGATIVE Acetone, Qual COVID-19 (ANIKA) Negative COVID-19 Clin Com See Note 01/13/22 01/13/22 01/13/22 16:24 17:45 17:45 WBC RBC Hgb Hct MCV MCH MCHC RDW Plt Count MPV Immature Gran % (Auto) Neut % (Auto) Lymph % (Auto) [place] % (Auto) Eos % (Auto) Baso % (Auto) Lymph # (Auto) [place] # (Auto) Eos # (Auto) Baso # (Auto) Abs Immat Gran (auto) Absolute Neuts (auto) Absolute Nucleated RBC Nucleated RBC % (auto) Smear Tech's Comments PT INR APTT VBG pH VBG pCO2 VBG pO2 VBG HCO3 VBG O2 Saturation VBG Base Excess Sodium 136 Potassium 3.7 D Chloride 97 Carbon Dioxide 22 Anion Gap 21 H BUN 26 H Creatinine 1.19 Estim Creat Clear Calc 60.9 Estimated GFR > 60 POC Glucose Random Glucose 265 H Lactic Acid Calcium 9.5 Magnesium Total Bilirubin Direct Bilirubin AST ALT Alkaline Phosphatase Total Protein Albumin Urine Color STRAW Urine Appearance CLEAR Urine pH 5.5 Ur Specific [place] 1.020 Urine Protein 1+ H Urine Glucose (UA) 500 H Urine Ketones >=80 Urine Blood 2+ H Urine Nitrite NEG Ur Leukocyte Esterase NEG Urine RBC 5-9 H Urine WBC 0 Ur Squamous Epith Cells TRACE Urine Bacteria NONE Stool Occult Blood Acetone, Qual Moderate H COVID-19 (ANIKA) COVID-19 Clin Com 01/13/22 01/13/22 01/14/22 17:45 17:45 06:36 WBC 14.2 H 13.3 H RBC 5.25 4.90 Hgb 16.1 15.2 Hct 45.1 43.4 MCV 85.9 88.6 MCH 30.7 31.0 MCHC 35.7 35.0 RDW 11.8 11.9 Plt Count 265 D 217 MPV 9.3 L 9.4 Immature Gran % (Auto) 0.4 0.5 H Neut % (Auto) 84.5 H 80.6 H Lymph % (Auto) 10.7 L 13.0 L [place] % (Auto) 4.3 5.8 Eos % (Auto) 0.0 0.0 Baso % (Auto) 0.1 0.1 Lymph # (Auto) 1.5 1.7 [place] # (Auto) 0.6 0.8 Eos # (Auto) 0.0 0.0 Baso # (Auto) 0.0 0.0 Abs Immat Gran (auto) 0.05 H 0.06 H Absolute Neuts (auto) 12.0 H 10.7 H Absolute Nucleated RBC 0.000 0.000 Nucleated RBC % (auto) 0.0 0.0 Smear Tech's Comments PT INR APTT VBG pH 7.37 VBG pCO2 32 VBG pO2 77 VBG HCO3 19 L VBG O2 Saturation 93.0 VBG Base Excess -4.5 Sodium Potassium Chloride Carbon Dioxide Anion Gap BUN Creatinine Estim Creat Clear Calc Estimated GFR POC Glucose Random Glucose Lactic Acid Calcium Magnesium Total Bilirubin Direct Bilirubin AST ALT Alkaline Phosphatase Total Protein Albumin Urine Color Urine Appearance Urine pH Ur Specific [place] Urine Protein Urine Glucose (UA) Urine Ketones Urine Blood Urine Nitrite Ur Leukocyte Esterase Urine RBC Urine WBC Ur Squamous Epith Cells Urine Bacteria Stool Occult Blood Acetone, Qual COVID-19 (ANIKA) COVID-Cannae 01/14/22 01/14/22 01/14/22 06:36 09:00 13:11 WBC RBC Hgb Hct MCV MCH MCHC RDW Plt Count MPV Immature Gran % (Auto) Neut % (Auto) Lymph % (Auto) [place] % (Auto) Eos % (Auto) Baso % (Auto) Lymph # (Auto) [place] # (Auto) Eos # (Auto) Baso # (Auto) Abs Immat Gran (auto) Absolute Neuts (auto) Absolute Nucleated RBC Nucleated RBC % (auto) Smear Tech's Comments PT INR APTT VBG pH VBG pCO2 VBG pO2 VBG HCO3 VBG O2 Saturation VBG Base Excess Sodium 139 Potassium 4.1 Chloride 102 Carbon Dioxide 21 L Anion Gap 20 BUN 21 H Creatinine 1.02 Estim Creat Clear Calc 71.1 Estimated GFR > 60 POC Glucose 207 H 207 H Random Glucose 208 H Lactic Acid Calcium 9.0 Magnesium Total Bilirubin Direct Bilirubin AST ALT Alkaline Phosphatase Total Protein Albumin Urine Color Urine Appearance Urine pH Ur Specific [place] Urine Protein Urine Glucose (UA) Urine Ketones Urine Blood Urine Nitrite Ur Leukocyte Esterase Urine RBC Urine WBC Ur Squamous Epith Cells Urine Bacteria Stool Occult Blood Acetone, Qual COVID-19 (ANIKA) COVID-19 [employer] 01/14/22 13:50 WBC RBC Hgb Hct MCV MCH MCHC RDW Plt Count MPV Immature Gran % (Auto) Neut % (Auto) Lymph % (Auto) [place] % (Auto) Eos % (Auto) Baso % (Auto) Lymph # (Auto) [place] # (Auto) Eos # (Auto) Baso # (Auto) Abs Immat Gran (auto) Absolute Neuts (auto) Absolute Nucleated RBC Nucleated RBC % (auto) Smear Tech's Comments PT INR APTT VBG pH VBG pCO2 VBG pO2 VBG HCO3 VBG O2 Saturation VBG Base Excess Sodium Potassium Chloride Carbon Dioxide Anion Gap BUN Creatinine Estim Creat Clear Calc Estimated GFR POC Glucose 222 H Random Glucose Lactic Acid Calcium Magnesium Total Bilirubin Direct Bilirubin AST ALT Alkaline Phosphatase Total Protein Albumin Urine Color Urine Appearance Urine pH Ur Specific [place] Urine Protein Urine Glucose (UA) Urine Ketones Urine Blood Urine Nitrite Ur Leukocyte Esterase Urine RBC Urine WBC Ur Squamous Epith Cells Urine Bacteria Stool Occult Blood Acetone, Qual COVID-19 (ANIKA) COVID-19 Clin Com Airway Mallampati Class: II TM Dist: >3cm Neck ROM: Full Loose/Missing/Broken Teeth: No Heart: RRR Lungs: CTA Assessment and Plan Assessment Anesthesia Assessment: Anesthesia Plan Discussed and Chart Reviewed Final Anesthetic Review History of Problems with Anesthesia: No NPO: Yes ASA Class: III Final Preanesthetic Review: Meds/Allgs Chart Reviewed, Consent Obtained/Reviewed and Anes Risks/Benef Reviewed Patient Risk: Intermediate Procedure Risk: Intermediate Anesthetic Plan Anesthetic Plan: MAC: Disposition: Standard PACU
--- NOTE | 2022-01-14 14:36 | P.OP_ITS ---
Operative Note Operative Note Date of Service: 01/14/22 Narrative: Pre-op diagnosis: GERD, GI bleeding Post-op diagnosis:?other (Severe erosive esophagitis, hiatal hernia, gastritis) Procedure: FLEXIBLE TRANSORAL UPPER GASTROINTESTINAL ENDOSCOPY WITH BIOPSIES Consent:?Indications for the procedure and potential complications of bleeding, perforation, reaction to medications and missed diagnosis were discussed with the patient and informed consent was obtained. Instrument:?Olympus GIF H 190 mid size upper endoscope Monitoring: Vital signs and clinical assessment, continuous EKG monitoring, Pulse oximetry, Carbon Dioxide monitoring and blood pressure monitoring were done throughout the procedure. Procedure:?The patient was placed in the left lateral decubitis position and pre-procedure medications were administered and a bite block was placed. The endoscope was inserted into the mouth and advanced under direct vision to the third part of duodenum. A careful inspection was made as the upper endoscope was withdrawn including a retroflexed examination of the proximal stomach; Findings and interventions are described below. Findings: Larynx:? Normal Esophagus: Severe erosive esophagitis with white exudate from 28 to 35 cms. GE junction at 35 cms, small hiatal hernia 35 to 37 cms. Stomach: Mild gastric erythema. Biopsies were obtained. Grade 2 flap valve on retroflexed examination of the cardia. Duodenum: Normal bulb and descending duodenum Intervention: Biopsies as noted above Impression and Post Procedure Diagnosis: Endoscopy Findings: ESOPHAGUS: Severe erosive esophagitis with white exudate from 28 to 35 cms likely due to GERD and gastroparesis.? GE junction at 35 cms, small hiatal hernia 35 to 37 cms. STOMACH:? Mild gastritis - biopsies obtained to check for H pylori. Plan: Resume high dose PPI twice daily for GERD. Patient has an appointment on 01/18/22 in the GI Clinic with Dr Cano Above findings were reviewed with the patient. Surgeon: Yelitza Elizabeth MD Anesthesia:?MAC (Dr Montague) Was an Armed Security Professional used for this Procedure?:?No Armed Security Professional:?Kathleen Shearer Estimated blood loss (mL):?0 Pathology:?other (A.? Gastric antrum) Condition:?stable Disposition:?PACU
--- NOTE | 2022-01-14 14:51 | MHC.CM.PN ---
CM ATTEMPTED TO SEE PT WHO WAS OFF UNIT CM TO REVISIT
[2022-01-14 18:10] LABS: Glucose, Whole Blood 273 mg/dL (60-115)
[2022-01-14] MEDS: Insulin Lispro 100 UNIT/ML 3 ML VIAL SUBCUT ×2 (18:29→21:54)
[2022-01-14 21:37] LABS: Glucose, Whole Blood 191 mg/dL (60-115)
[2022-01-15] VITALS (8 sets, daily range): BP systolic 122–147; BP diastolic 71–81; PULSE 73–87; RESP 12–17; TEMP 36.8–37.2; O2SAT 98–99; BMI 16.8
--- NOTE | 2022-01-15 01:04 | PC.NURSE ---
This nurse took over patient's care at 1900. Patient is alert and oriented x3, l/s clear. Patient reports abdominal pain and lower back pain, rating pain level 10/10, medicated with prn dilaudid per emar. Patient reports tolerating clear liquid diet at this time, reports slight nausea without vomiting. No signs of active bleeding, vital signs stable, call velásquez within reach.
[2022-01-15] MEDS: 0.9 % Sodium Chloride 1,000 ML 100 ML IVCONT ×4 (02:27→21:23)
[2022-01-15] MEDS: HYDROmorphone HCl 0.5 MG/0.5 ML SYRINGE 0.25 MG IVPUSH ×5 (02:29→22:14)
[2022-01-15] MEDS: Pantoprazole Sodium 40 MG/10 ML VIAL IVPUSH ×2 (06:31→18:03)
[2022-01-15] MEDS: ondansetron HCL 4 MG/2 ML VIAL IVPUSH ×2 (06:39→13:24)
[2022-01-15 07:26] LABS: Glucose, Whole Blood 201 mg/dL (60-115)
[2022-01-15] MEDS: Insulin Lispro 100 UNIT/ML 3 ML VIAL SUBCUT (07:36)
--- NOTE | 2022-01-15 07:54 | PC.NURSE ---
Pt A&OX4, LCA, no vomiting noted at this time, pt is nauseas, aware her got zofran approx 1 hour ago. Clear tray at bedside. VS as charted, Medicated as per [facility] orders for BG. Abd soft, TTP in all 4 quadrants. Pt self repositions in bed at this time. Awaiting bed assignment, call velásquez within reach. Will continue to monitor.
--- NOTE | 2022-01-15 09:07 | HO.POSTANES ---
Post Anesthesia Evaluation Post Anesthesia Evaluation Vital Signs: Vital Signs Temp Pulse Resp BP Pulse Ox 01/15/22 07:39 80 14 134/77 99 01/15/22 06:39 16 01/15/22 04:15 98.3 F 85 12 122/71 99 01/15/22 02:29 17 01/15/22 00:50 87 17 133/75 98 01/14/22 22:29 16 01/14/22 21:14 98 F 79 15 149/78 H 97 Anesthesia: Monitored Mental Status: Awake Pain Control: Satisfactory Nausea/Vomiting: None Hydration: Adequate Anesthesia-Related Issues: No Anes. Related Issues
--- NOTE | 2022-01-15 10:38 | HO.PM.IMPN ---
Subjective Subjective Date of Service: 01/15/22 Review of Systems Follow u up GI bleed Still with nausea and abd pain Physical Exam Vital Signs: Vital Signs: Last Vital Signs Temp 98.3 F 01/15/22 04:15 Pulse 80 01/15/22 07:39 Resp 14 01/15/22 07:39 BP 134/77 01/15/22 07:39 Pulse Ox 99 01/15/22 07:39 BMI result Body Mass Index 18.8 Appearing in no acute distress, pale and thin ?lung sounds are clear to auscultation ?heart regular rate rhythm, clear? S1, S2 ?positive bowel sounds, abdomen is soft, diffusely tender ?neuro patient is alert x3, no focal deficits Objective Data Active Medications Acetaminophen (Acetaminophen 325 Mg Tablet) 650 mg PO Q6H PRN PRN Reason: Pain, Mild (Pain Scale 1-3) Dextrose (Dextrose 50 % 25 Gm/50 Ml Vial) 25 gm IVPUSH Q15M PRN; Protocol PRN Reason: per Hypoglycemia Standing Ord. Glucose (Glucose Gel 15 Gm Gel..Gram.) 15 gm PO Q15M PRN; Protocol PRN Reason: per Hypoglycemia Standing Ord. Hydromorphone HCl (Hydromorphone Hcl 0.5 Mg/0.5 Ml Syringe) 0.25 mg IVPUSH Q4H PRN; Protocol PRN Reason: Breakthrough Pain Last Admin: 01/15/22 06:39 Dose: 0.25 mg Documented by: RANDY Sodium Chloride (Ns) 1,000 mls @ 100 mls/hr IVCONT .Q10H [facility] Last Admin: 01/15/22 07:37 Dose: 100 mls/hr Documented by: JAYLAN-RAMROSA Insulin Human Lispro (Insulin Lispro 100 Unit/Ml 3 Ml Vial) 0 unit SUBCUT QIDACHS [facility]; Protocol Last Admin: 01/15/22 07:36 Dose: 4 unit Documented by: JAYLAN-RAMSK Ondansetron HCl (Ondansetron Hcl 4 Mg/2 Ml Vial) 4 mg IVPUSH Q8H PRN PRN Reason: Nausea and Vomiting Last Admin: 01/15/22 06:39 Dose: 4 mg Documented by: RANDY Pantoprazole Sodium (Pantoprazole Sodium 40 Mg/10 Ml Vial) 40 mg IVPUSH BID@0630,1630 [facility] Last Admin: 01/15/22 06:31 Dose: 40 mg Documented by: RANDY Pharmacy Consult (Consult Rx Perform Med Rec) 1 each MISCELLANE ONCE PRN PRN Reason: Consult order Sodium Chloride (0.9 % Sodium Chloride Flush 3 Ml Syringe) 3 ml IVFLUSH QSHIFT [facility] Last Admin: 01/15/22 07:54 Dose: Not Given Documented by: BATSHEVA Non-Admin Reason: IV Running Labs CBC & Chem 7: 01/14/22 06:36 01/14/22 06:36 Labs: Laboratory Results - last 24 hr 01/14/22 01/14/22 01/14/22 13:11 13:50 18:04 POC Glucose 207 H 222 H 273 H Magnesium 01/14/22 01/15/22 01/15/22 21:27 07:22 08:46 POC Glucose 191 H 201 H Magnesium 2.0 Assessment and Plan (1) Hematemesis: Status: Acute Plan 42 year old man admitted with GI bleed including coffee grounds and hematemesis. ? Patient likely requires 2 midnights in the hospital due to necessitating IV ppi, IV fluids and correcting of electrolyte abnormalities. Acute upper and lower GI bleed Not on any anticoagulation Stable H&H at this time IV PPI GI following, EGD showed severe erosive esophagitis Continue PPI Clear liquid diet as tolerated Follow H&H closely, no anemia noted as of yet Clear liquid diet Hyponatremia. Resolved Likely related to fluid losses IV fluids Anion gap. Resolved Secondary to fluid losses from vomiting Assess for DKA, less likely versus anion gap metabolic acidosis Multiple electrolyte abnormalities Check VBG, repeat BMP to assess anion gap and bicarb, acetone GRAY Secondary to fluid losses IV fluids Follow BMP Avoid nephrotoxins Diabetes mellitus Sliding scale History of cerebral palsy Depression not on home medications DVT prophylaxis mechanical compression boots due to GI bleed Attending Dr. Gomes Full code Patient requires continued hospitalization due to GI bleed requiring IV PPI, only can tolerate clear liquid diet Quality Stroke Does the patient have a stroke diagnosis?: No VTE Prior VTE?: No VTE Risk Level:: Medical - moderate - high VTE Device Contraindication: N/A - Device Ordered VTE Drug Contraindication: Treatment Not Indicated
[2022-01-15 13:08] LABS: Glucose, Whole Blood 121 mg/dL (60-115)
[2022-01-15 16:53] LABS: Glucose, Whole Blood 136 mg/dL (60-115)
--- NOTE | 2022-01-15 18:46 | PC.NURSE ---
Pt c/o lower abd pain, last BM Friday, has had stool softener in the past with positive effect. Will message MD for order.
[2022-01-15 20:46] LABS: Glucose, Whole Blood 111 mg/dL (60-115)
--- NOTE | 2022-01-15 23:35 | MHC.PIE ---
p; pt arrived from ed c/o pain 08/19 pain increased with hiccups. ptn dilaudid 0.25 mg iv given with little effect. i; dr najera notified; new order dilaudid 0.5ng iv now e; will cont to monitor
[2022-01-15] MEDS: HYDROmorphone HCl 0.5 MG/0.5 ML SYRINGE IVPUSH (23:43)
[2022-01-16 03:26] VITALS: BP 129/71; PULSE 70; RESP 17; TEMP 36.3; O2SAT 99
[2022-01-16] MEDS: HYDROmorphone HCl 0.5 MG/0.5 ML SYRINGE 0.25 MG IVPUSH ×3 (03:37→12:10)
[2022-01-16] MEDS: 0.9 % Sodium Chloride 1,000 ML 100 ML IVCONT (06:05)
[2022-01-16] MEDS: Pantoprazole Sodium 40 MG/10 ML VIAL IVPUSH (06:06)
[2022-01-16 06:20] LABS: Hematocrit 36.6 % (42.0-52.0); Hemoglobin 12.9 g/dl (14.0-18.0); Mean Corpuscular HGB Conc 35.2 g/dl (31.0-36.0); Mean Corpuscular Hemoglobin 30.9 pg (27.0-33.0); Mean Corpuscular Volume 87.6 fL (80.0-98.0); Mean Platelet Volume 9.4 fL (9.4-12.4); Platelet Count 183 X10*3/uL (160-400); Red Blood Count 4.18 X10*6/uL (4.60-5.80); Red Cell Distribution Width 11.2 % (11.0-16.0); White Blood Count 6.3 X10*3/uL (4.8-10.8)
[2022-01-16 06:31] LABS: Anion Gap 12 (12-20); Blood Urea Nitrogen 9 mg/dL (9-16); Calcium 8.1 mg/dL (8.4-10.2); Carbon Dioxide 30 mmol/L (22-29); Chloride 98 mmol/L (96-108); Creatinine Clr Calc Pharmacy 92.9; Estimated Glomerular Filt Rate > 60; Glucose Random 123 mg/dL (60-115); Potassium 2.9 mmol/L (3.3-5.1); Sodium 137 mmol/L (135-145)
[2022-01-16 07:40] VITALS: BP 165/81; PULSE 70; RESP 18; TEMP 36.9; O2SAT 99
[2022-01-16 07:47] LABS: Glucose, Whole Blood 139 mg/dL (60-115)
[2022-01-16] MEDS: 0.9 % Sodium Chloride Flush 3 ML SYRINGE IVFLUSH (08:00)
--- NOTE | 2022-01-16 08:36 | PM.DS ---
DS: Providers Provider Date of Service: 01/16/22 Date of admission: 01/13/22 17:02 Primary care physician: Isabell Young MD Consults: 01/13/22 17:01 Consult to Gastroenterology Routine Consulting Provider: Jesse Cano Reason for consultation: gi bleed Has provider been notified: No DS: Diagnosis Discharge Diagnosis (1) Hematemesis: Status: Acute DS: Summary Hospital Course Hospital Course: Chief Complaint: Hematemesis 42-year-old man presenting with complaints of coffee-ground emesis over the last several days with abdominal pain.? He also reported dark loose stools however occult was negative. He denies fever, chills, recent travel, sick contacts.? He does have a history of gastritis.? He denies heavy use of NSAIDs and is not on anticoagulants.? H&H has remained stable.? Multiple abnormal electrolytes.? Vital signs are stable.? He was given IV Pepcid, IV fluid and pain medication in the ER.? He will be admitted for further management acute GI bleed. Hospital course: patient was admitted for upperg GIB with initial hemoglobin of 16 and dropped to 12. He required no transfusion. Medical management consisted of IV PPI. He enderwent EGD on 01/14/[address] Elizabeth and noted to have the following erosive esophagitias and gastritis. He has no active bleed. He will be transitioned to oral PPI with prilosect 40 bid and has follow appointment with Dr. Cano on 01/18. Instructed to avoid NSAID Time Spent with Patient Time attestation: Total time spent providing and/or coordinating discharge services: Discharge coordination time: Greater than 30 minutes Quality: Stroke Does the patient have a stroke diagnosis?: No Physical Exam Vital Signs: Vital Signs: Last Vital Signs Temp 98.5 F 01/16/22 07:40 Pulse 70 01/16/22 07:40 Resp 18 01/16/22 07:40 BP 165/81 H 01/16/22 07:40 Pulse Ox 99 01/16/22 07:40 BMI result Body Mass Index 16.8 Const: Other: Seen face to face today General: AO X 3, no acute distress Resp: CTA bilateral CVS: S1,S2,RRR GI: +BS, NT, no distention Skin: No rash Neuro: motor grossly intact Psych: appropriate affect DS: Data Data Completed and Pending Pending studies at discharge: Pending at discharge 01/14/22 15:08 Surgical [PTH] Routine Labs on day of discharge: Laboratory Results - last 24 hr 01/15/22 01/15/22 01/15/22 08:46 13:05 16:40 WBC RBC Hgb Hct MCV MCH MCHC RDW Plt Count MPV Absolute Nucleated RBC Nucleated RBC % (auto) Sodium Potassium Chloride Carbon Dioxide Anion Gap BUN Creatinine Estim Creat Clear Calc Estimated GFR POC Glucose 121 H 136 H Random Glucose Calcium Magnesium 2.0 01/15/22 01/16/22 01/16/22 20:42 05:53 05:53 WBC 6.3 RBC 4.18 L Hgb 12.9 L Hct 36.6 L MCV 87.6 MCH 30.9 MCHC 35.2 RDW 11.2 Plt Count 183 MPV 9.4 Absolute Nucleated RBC 0.000 Nucleated RBC % (auto) 0.0 Sodium 137 Potassium 2.9 L D Chloride 98 Carbon Dioxide 30 H Anion Gap 12 BUN 9 D Creatinine 0.70 Estim Creat Clear Calc 92.9 Estimated GFR > 60 POC Glucose 111 Random Glucose 123 H D Calcium 8.1 L D Magnesium 01/16/22 07:39 WBC RBC Hgb Hct MCV MCH MCHC RDW Plt Count MPV Absolute Nucleated RBC Nucleated RBC % (auto) Sodium Potassium Chloride Carbon Dioxide Anion Gap BUN Creatinine Estim Creat Clear Calc Estimated GFR POC Glucose 139 H Random Glucose Calcium Magnesium Discharge Plan Discharge Patient Disposition: Home, Self-Care Discharge Diagnosis: upper GI bleed, acute blood loss anemia Referrals: Isabell Blue MD [Primary Care Provider] - 1 Week Discharge Medications: New omeprazole magnesium [Prilosec OTC] 20 mg tablet,delayed release (DR/EC) 40 mg PO BID Qty: 100 0RF No Action (DME) blood-glucose meter [FreeStyle Lite Meter] Kit See Rx Instructions .Route Qty: 1 0RF Rx Instructions: As directed pioglitazone 45 mg tablet 45 mg PO DAILY 90 Days Qty: 90 0RF (DME) wheelchair electric See Rx Instructions .Route .MEDSUPPLY Qty: 1 0RF Rx Instructions: As directed (DME) FreeStyle Test Strip See Rx Instructions .Route Qty: 50 11RF Rx Instructions: Use 1 test strip once a day Diet: advance to usual diet Activity on Discharge: As tolerated Stand Alone Forms: Patient Portal Discharge page Care Plan Goals: prevent further GI bleeding and preven rehospitalization Health Concerns: upper gi bleeding, esophagitis and gastritis Plan of Treatment: Take prilosec 40 mg twice daily, Follow up with Dr. Cano on 01/18/22 Assessment: As above
[2022-01-16 11:01] LABS: Glucose, Whole Blood 175 mg/dL (60-115)
--- NOTE | 2022-01-16 11:10 | MHC.CM.PN ---
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 Home is the goal and CM has initiated and will follow for dc planning. PCP is DR.Ana Elmo Young and Patient has received Pzizer Covid vax X3.
[2022-01-16 12:00] VITALS: BP 145/67; PULSE 65; RESP 18; TEMP 36.8; O2SAT 97
[2022-01-16] MEDS: Insulin Lispro 100 UNIT/ML 3 ML VIAL SUBCUT (12:10)
--- NOTE | 2022-01-16 13:13 | P.CDIC_ITS ---
CDI Concurrent Query Documentation Clarification: PHYSICIAN'S DOCUMENTATION REQUEST Date of Query: 01/16/22 1314 Patient Name: Wilman Huggins Admit Date: 01/13/22 Dear Doctor, A review of the medical record indicates additional documentation may be needed. Please review below and update the documentation accordingly. Clinical Indicators: Risk Factors/Clinical Indicators/Treatments Body mass index: 16.9 5' 7 Height and weight assessment notes patient to be underweight. If possible, please provide an associated diagnosis related to the abnormal BMI, such as: For a BMI <= 19: * Underweight * Weight loss * Cachexia * Anorexia Or: * BMI is not significant * Other (please specify) * Unable to determine Use of terms such as suspected, likely, concern for, or probable (associated with a specific diagnosis that is being evaluated, monitored, or treated as if it exists) are acceptable and can be coded in the inpatient setting, when documented at the time of discharge. Thank you, Sherlyn Sen [facility], CDIS Extension: [phone] Please use your independent medical judgment in providing your response. THIS QUERY IS PART OF THE PERMANENT MEDICAL RECORD Provider Response: Other Other Diagnosis: underweight
[2022-01-16 13:30] VITALS: BMI 18.8
--- NOTE | 2022-01-16 13:40 | MHC.CLN ---
NUTRITION CONSULT CONSULT FOR LOW WEIGHT AND POOR APPETITE. REGULAR DIET. DX MINA AND TAKES HUMALOG. DIET LIBERALIZED DUE TO RECENT DECREASE IN INTAKE. NUTRITION CONSULT FOR LOW WEIGHT AND POOR APPETITE. STATED UBW APPROX 120#. WEIGHT DISCREPANCY 01/15 TO 01/14 SHOWING UNLIKELY LOSS X 1 DAY. DIET ADVANCED TODAY FROM CL. HAD BEEN TAKING/TOLERATING LIQUIDS. DISLIKES ENSURE SUPPLEMENT AND DOES NOT WANT. PROVIDE FOOD PREFERENCES ABLE.
[2022-01-16 14:00] VITALS: O2SAT 94
--- NOTE | 2022-01-16 14:55 | MHC.CM.PN ---
PT MEDICALLY CLEARED FOR D/C HOME W/RESUMP OF [employer]RS, NO NEW SERVICES ORDERED, PT HAS ARRANGED TRANSPORT HOME AND IS WAITING FOR [facility] TO PICK HIM UP.
== END 2022-01-16 16:05 | disposition home or self-care (01) | DRG 378 ==
LOC: HO.ED 16:58 → HO.EDOVER 17:07 → HO.S3 01-15 19:42
PROVIDERS: Internal Medicine Gastroenterology; Physician Assistant; Admitting Provider Nurse Practitioner Acute Care; Emergency Provider Emergency Medicine; PCP Internal Medicine; Visit Provider Internal Medicine
PROC: 0DJ08ZZ Inspection of Upper Intestinal Tract, Via Natural or Artificial Opening Endoscopic (ICD-10-PCS; CPT 43235; principal; 2022-01-14 14:30)
DX: K29.71 Gastritis, unspecified, with bleeding (principal); E87.1 Hypo-osmolality and hyponatremia; N17.9 Acute kidney failure, unspecified; D62 Acute posthemorrhagic anemia; K21.01 Gastro-esophageal reflux disease with esophagitis, with bleeding; G80.9 Cerebral palsy, unspecified; E86.0 Dehydration; E11.9 Type 2 diabetes mellitus without complications; F32.A Depression, unspecified; Z20.822 Contact with and (suspected) exposure to COVID-19; Z87.891 Personal history of nicotine dependence; Z79.899 Other long term (current) drug therapy
CPT/HCPCS: 36415; 74177; 80048; 80076; 81001; 82009; 82272; 82803; 82947; 83605; 83735; 85025; 85027; 85610; 85730; 87635; 88305; 88342; 93005; 96361; 96374; 96375; 99285; J1170; J2270; J2405; Q9967

== ENCOUNTER → 2022-01-18 11:46 | Outpatient (BNVA) | payer OTHER, SELFPAY | PROVIDERS: PCP Internal Medicine; Referring Provider Internal Medicine; Visit Provider Internal Medicine Gastroenterology | DX: K31.84 Gastroparesis (principal); K20.90 Esophagitis, unspecified without bleeding; R13.10 Dysphagia, unspecified; Z91.19 Patient's noncompliance with other medical treatment and regimen | CPT/HCPCS: 99212 ==

== ENCOUNTER → 2022-08-05 10:17 | Outpatient (BNVA) | payer OTHER, SELFPAY | PROVIDERS: PCP Internal Medicine; Visit Provider Internal Medicine Gastroenterology | DX: Z13.89 Encounter for screening for other disorder (principal) | CPT/HCPCS: Q3014 ==

== ENCOUNTER 2022-09-08 22:09 | Inpatient (IN) | payer OTHER, SELFPAY ==
--- NOTE | ~2022-09-08 | CT_ITS ---
EXAMINATION: CT abdomen pelvis w IV con CLINICAL INFORMATION: Reason for Exam abdominal pain, known gastroparesis COMPARISON: Prior CT 01/13/2022 TECHNIQUE: Multidetector volumetric imaging was performed from the superior aspect of the liver through the pubic symphysis 85 mL of Omnipaque 350 injected Sagittal and coronal reformatted images were obtained on the technologist's workstation. This CT examination was performed using dose optimization techniques as appropriate, variously including the following: *Automated exposure control *Adjustment of mA and/or kV according to patient size (this includes techniques or standardized protocols for targeted exams where dose is matched to indication/reason for exam; i.e. extremities or head) *Use of iterative reconstruction technique DLP: 254 mGy-cm FINDINGS: LOWER THORAX: Included lung bases are clear. HEPATOBILIARY: No focal hepatic lesions. No biliary ductal dilatation. GALLBLADDER: Gallbladder unremarkable. SPLEEN: Spleen is normal in size. PANCREAS: No focal mass or ductal dilatation. STOMACH AND GASTROINTESTINAL TRACT: Stomach is grossly unremarkable. Segment of the sigmoid colon now exhibits mild circumferential wall thickening nonspecific, pericholecystic fat remain clear, this could be a sequela of chronic or subclinical colitis, inflammatory, infection, less commonly neoplastic. No CT evidence of appendicitis. ADRENALS: No adrenal nodules. KIDNEYS/URETERS: There are multiple bilateral renal cysts the largest on the right measure up to 3.9 cm, Bosniak class I, no solid renal lesion, cyst protruding from the lower pole left kidney measure up to 2.4 cm, the attenuation of its matrix is 64, this is higher than expected for simple cyst probably hemorrhagic cyst. There are few other smaller probably hemorrhagic cysts. There are bilateral tiny nonobstructing kidney stones largest on the right 3 mm, largest on the left 3 mm, there is no renal obstruction or hydronephrosis on either side. These have not changed from prior exam. URINARY BLADDER: Partially decompressed. PELVIC VISCERA: Unremarkable PERITONEUM: No free air or fluid. LYMPH NODES: No lymphadenopathy. VASCULAR:Abdominal aorta normal in size, no aneurysm found. BONES, ABDOMINAL WALL AND SOFT TISSUES: Age-appropriate changes of the spine and skeletal system, no destructive osteolytic or osteosclerotic bone lesion found CT/CT abdomen pelvis w IV con IMPRESSION: 1. Segment of the sigmoid colon exhibits circumferential wall thickening nonspecific, differential would include most commonly infection and inflammatory condition, possibly subclinical or chronic colitis, neoplastic process less likely present in this diffuse fashion however not entirely excluded, would recommend GI consultation, if patient remain symptomatic may consider follow-up colonoscopy. 2. Redemonstration of bilateral nonobstructing kidney stones, no hydronephrosis. 3. Redemonstration of multiple bilateral renal cysts, there are few hemorrhagic cysts, the largest on the right measure up to 3.9 cm Bosniak class I, no solid renal lesion found. 4. No CT evidence of bowel obstruction. No free air or fluid. No adenopathy.
--- NOTE | ~2022-09-08 | NM_ITS ---
EXAMINATION: YONI RADIONUCLIDE SOLID FOOD GASTRIC EMPTYING 4-HOUR STUDY CLINICAL INFORMATION: GERD. Diabetes mellitus. COMPARISON: Resting imaging study done on 02/02/2019. TECHNIQUE: A meal consisting of 8 ounces of Ensure-plus Brand tagged with 1000 microcuries Tc-99m Sulfur Colloid, was administered orally to the patient. This fatty supplement was used because the patient could not tolerate eggs, and has been shown to closely mimic gastric emptying of labeled eggs. Images were obtained using a dual head gamma camera in the anterior and posterior projections over of the stomach immediately post ingestion and at hourly intervals up to 4 hours post ingestion. The anterior and posterior counts at each time interval were averaged using the geometric mean and expressed as percentage of the immediate post ingestion counts. FINDINGS: There is good visualization of activity in the stomach immediately post ingestion. As the study progresses, there is good clearance of activity from the stomach and visualization of progressively increasing small bowel activity. By the end of the study, there is almost no retention noted in the stomach. Retention in the stomach at each time interval was: 1 hour 85% (normal 37%-90%), previously 57%. 2 hours 61% (normal 30%-60%), previously 60%. 3 hours 47%, previously 48%. 4 hours 39% (normal 0%-10%), previously 45%. SD/SD gastric emptying study IMPRESSION: Abnormal delayed gastric emptying study, appears similar to prior study done on 02/02/2019. Ensure-plus Brand supplement was used instead of radio-labeled eggs because of the patient's intolerance to eggs. This supplement has been shown to closely mimic gastric emptying of labeled eggs.
[2022-09-08 22:26] VITALS: BP 152/84; PULSE 69; RESP 16; TEMP 36.4; O2SAT 97; BMI 18.0
[2022-09-08] MEDS: Ondansetron ODT 4 MG TAB.RAPDIS TRANSLINGU (22:49)
[2022-09-09] VITALS (9 sets, daily range): BP systolic 117–154; BP diastolic 63–96; PULSE 62–98; RESP 16–30; TEMP 36.4–37.4; O2SAT 96–100
[2022-09-09 01:32] LABS: MANUAL DIFF FLAG NO
[2022-09-09 01:33] LABS: Basophils Percent Auto 0.1 % (0-2); Hematocrit 49.4 % (42.0-52.0); Hemoglobin 17.2 g/dl (14.0-18.0); Imm Gran Abs Auto 0.03 X10*3/uL (0.00-0.03); Imm Gran Pct Auto 0.4 % (0.0-0.4); Lymphocytes Absolute Auto 0.5 X10*3/uL (1.2-4.9); Mean Corpuscular HGB Conc 34.8 g/dl (31.0-36.0); Mean Corpuscular Hemoglobin 30.6 pg (27.0-33.0); Mean Corpuscular Volume 87.7 fL (80.0-98.0); Mean Platelet Volume 8.9 fL (9.4-12.4); Monocytes Absolute Auto 0.6 X10*3/uL (0.1-1.2); Monocytes Percent Auto 6.5 % (2-11); Neutrophils Absolute Auto 7.5 x10*3/uL (2.0-8.3); Platelet Count 222 X10*3/uL (160-400); Red Blood Count 5.63 X10*6/uL (4.60-5.80); Red Cell Distribution Width 11.7 % (11.0-16.0); White Blood Count 8.6 X10*3/uL (4.8-10.8)
[2022-09-09 01:39] LABS: INTERNATIONAL NORM RATIO 1.3 (0.9-1.1); Prothrombin Time 14.8 SEC (10.0-13.1)
[2022-09-09 01:42] LABS: Partial Thromboplastin Time 27.7 SEC (26.0-36.4)
[2022-09-09 01:54] LABS: Alanine Aminotransferase 36 U/L (0-40); Albumin Level 5.4 g/dL (3.5-5.0); Alkaline Phosphatase 88 U/L (39-117); Anion Gap 32 (12-20); Aspartate Amino Transferase 27 U/L (5-37); Bilirubin Total 1.1 mg/dL (0.0-1.0); Blood Urea Nitrogen 33 mg/dL (9-16); Carbon Dioxide 18 mmol/L (22-29); Chloride 94 mmol/L (96-108); Creatinine Clr Calc Pharmacy 41.1; Estimated Glomerular Filt Rate 44; Glucose Random 461 mg/dL (60-115); Lipase < 4 U/L (8-78); Potassium 3.9 mmol/L (3.3-5.1); Sodium 140 mmol/L (135-145); Total Protein 8.9 g/dL (6.5-8.0)
--- NOTE | 2022-09-09 05:10 | PC.NURSE ---
Pt had small B/M on bed pad. Changed Pt Thaddeus, bed pad, and wiped with wash towels.
--- NOTE | 2022-09-09 05:31 | ED.ABDPAIN ---
HPI - Abdominal Pain General Chief Complaint: Abdominal Pain Stated Complaint: Abd pain/Headache Time Seen by Provider: 09/09/22 05:12 Source: patient Mode of arrival: ambulatory Limitations: no limitations History of Present Illness HPI narrative: 42-year-old male who presents emergency department for evaluation of abdominal pain, nausea, vomiting, headache x3 days. The patient states that he has a history of gastroparesis. He states that 3 days prior he developed a headache. He describes the headache as a rubber band pressure-like sensation wrapped around his entire head, the pain is constant and is 10 of 10 at its worst. Patient states that he has had nausea and has vomited too many times to count. He also states he has had diarrhea approximately 6 episodes per day. He states he has been feeling very weak and his glucose is been very high. He states that he is having abdominal pain as well. He points to his epigastric area describes the pain is a constant, burning sensation which is 7 out 10 at its worst. He has had similar presentations in the past. He denied fever, cough, chest pain, shortness of breath. He states that he has had chills rhinorrhea sore throat and dysuria. Related Data Home Medications Medication Instructions Recorded Confirmed extra depth diabetic shoes with 3 .Route 08/27/22 pair custom Previous Rx's Medication Instructions Recorded wheelchair #1 ea 10/11/20 blood-glucose meter (FreeStyle #1 ea 06/19/21 Lite Meter kit) blood sugar diagnostic (FreeStyle #50 ea 12/12/21 Test strips) crutch tips #2 ea 03/07/22 ankle wraps #1 ea 06/28/22 omeprazole 40 mg capsule,delayed 40 mg PO BID #90 caps 06/28/22 release glipizide 5 mg tablet 5 mg PO DAILY 30 days #90 tabs 08/28/22 Allergies Allergy/AdvReac Type Severity Reaction Status Date / Time No Known Allergies Allergy Verified 09/08/22 22:48 Review of Systems Review of Systems Yes all other systems are reviewed and are negative [facility] Past Medical History [facility] Narrative: Social history: Patient denies tobacco, alcohol use. He does smoke marijuana at night to help him sleep. 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) Alcohol intake: current Alcohol intake frequency: a few times a month Alcohol type: beer and hard liquor Patient Tobacco Use Status: Former Tobacco user Tobacco use type: Cigarette e-Cigarette/Vaping Use: Never Used Second Hand Smoke Exposure: No Substance Use Type: Marijuana Advance Directives: No service: No Current occupational status: disabled Cognitive needs: Yes Hearing needs: No Vision needs: Yes Physical Exam ED Vital Signs: Vital Signs - 24 hr 09/08/22 22:26 09/09/22 04:00 09/09/22 06:12 Temperature 97.6 F 98.4 F Pulse Rate 69 67 85 Respiratory Rate 16 30 H 16 Blood Pressure 152/84 H 154/96 H 148/83 H Pulse Oximetry 97 96 98 Oxygen Delivery Method Room Air Room Air Room Air 09/09/22 07:34 Temperature Pulse Rate 84 Respiratory Rate 18 Blood Pressure 145/91 H Pulse Oximetry 98 Oxygen Delivery Method Room Air BMI result Body Mass Index 18.0 Const Other: Awake, alert, male patient, very thin, very strong ketotic odor on his breath, answers questions appropriately Orientation/consciousness: oriented to person [facility] Head: Yes normal to inspection, Yes normocephalic and Yes atraumatic Ears: external ears normal General nose exam: Normal external nose present Face and sinus: Yes normal facial exam Mouth: other (Very dry mucous membranes, strong ketotic odor to breath) Throat: Yes posterior oropharynx normal Eyes General: appearance normal, both eyes and all related structures Pupils: Equal, round and reactive pupils present Neck Neck: Yes normal visual inspection, Yes no lymphadenopathy, Yes trachea midline and Yes supple Chest Chest palpation & inspection: normal inspection of the chest and normal palpation of entire chest wall Resp Effort & Inspection: normal respiratory effort and able to speak in complete sentences Auscultation: clear to auscultation bilaterally Cardio Rate: regular rate Rhythm: regular rhythm Heart sounds: S1 normal heart sound present, S2 normal heart sound present and no murmurs GI Inspection: Yes normal to inspection Palpation (GI): Soft to palpation, Tenderness to palpation present (GI) in the epigastrum (Moderate) and no guarding Auscultation: normal bowel sounds General: Yes no CVA tenderness Back/Spine/Pelvis Back: no CVA tenderness Skin General skin exam: no rashes or lesions noted Neuro General: oriented to person Cranial nerves: Yes CN's II-XII intact bilaterally and Yes Equal, round and reactive pupils present Cognition (Neuro): normal cognition Extrem General: Yes normal to inspection Psych Appearance: grossly normal Speech and movement: Normal speech and movement present Course Course Course Narrative: 42-year-old male with a history of cerebral palsy, GERD, gastroparesis diabetes mellitus who presents emergency department for evaluation abdominal pain, headache, nausea, vomiting and diarrhea x3 days with very poor food and fluid intake. Patient's vital signs revealed an elevated blood pressure of 152/84 otherwise unremarkable. Patient has a strong odor ketosis in very dry mucous membranes. Patient did have epigastric pain. The differential includes was not limited to diabetic ketoacidosis, starvation ketosis, volume depletion, dehydration, viral syndrome. Laboratory evaluation: CBC normal. Venous pH 7.31 chloride and CO2 low 94 and 18. Anion gap 32. BUN and creatinine elevated 33 and 1.69. Glucose elevated 461. LFTs unremarkable.Urine 2+ blood, negative nitrates, negative leukocyte esterase, 1+ protein elevated glucose. Acetone small. COVID negative. Patient was ordered to get lactated Ringer x2 L, regular insulin 10 units, Toradol 10 mg IV, Reglan 10 units IV. 0815: At the end of my shift, the patient is not completed his 2 L of lactated Ringer's, patient's care was turned over to my colleague, Dr. Michele Friedman. MDM - Abdominal Pain Lab Data Result diagrams: 09/09/22 01:27 09/09/22 01:27 Labs: Lab Results 09/09/22 09/09/22 09/09/22 Range/Units 01:27 01:27 01:27 WBC 8.6 (4.8-10.8) X10*3/uL RBC 5.63 D (4.60-5.80) X10*6/uL Hgb 17.2 D (14.0-18.0) g/dl Hct 49.4 D (42.0-52.0) % MCV 87.7 (80.0-98.0) fL MCH 30.6 (27.0-33.0) pg MCHC 34.8 (31.0-36.0) g/dl RDW 11.7 (11.0-16.0) % Plt Count 222 (160-400) X10*3/uL MPV 8.9 L (9.4-12.4) fL Immature Gran % (Auto) 0.4 (0.0-0.4) % Neut % (Auto) 87.0 H (45-73) % Lymph % (Auto) 6.0 L (20-40) % Preston % (Auto) 6.5 (2-11) % Eos % (Auto) 0.0 (0-4) % Baso % (Auto) 0.1 (0-2) % Lymph # (Auto) 0.5 L (1.2-4.9) X10*3/uL Preston # (Auto) 0.6 (0.1-1.2) X10*3/uL Eos # (Auto) 0.0 (0.0-0.4) X10*3/uL Baso # (Auto) 0.0 (0.0-0.2) X10*3/uL Abs Immat Gran (auto) 0.03 (0.00-0.03) X10*3/uL Absolute Neuts (auto) 7.5 (2.0-8.3) x10*3/uL Absolute Nucleated RBC 0.000 (0.0-0.012) X10*3/uL Nucleated RBC % (auto) 0.0 (0.0-0.2) /100WBC PT (10.0-13.1) SEC INR (0.9-1.1) APTT (26.0-36.4) SEC VBG pH (7.32-7.43) VBG pCO2 mmHg VBG pO2 mmHg VBG HCO3 (22-26) mmol/L VBG O2 Saturation % VBG Base Excess mmol/L Sodium 140 (135-145) mmol/L Potassium 3.9 D (3.3-5.1) mmol/L Chloride 94 L (96-108) mmol/L Carbon Dioxide 18 L (22-29) mmol/L Anion Gap 32 H (12-20) BUN 33 H D (9-16) mg/dL Creatinine 1.69 H (0.5-1.4) mg/dL Estim Creat Clear Calc 41.1 Estimated GFR 44 POC Glucose (60-115) mg/dL Random Glucose 461 H* (60-115) mg/dL Calcium 10.0 D (8.4-10.2) mg/dL Total Bilirubin 1.1 H (0.0-1.0) mg/dL AST 27 (5-37) U/L ALT 36 (0-40) U/L Alkaline Phosphatase 88 (39-117) U/L Total Protein 8.9 H (6.5-8.0) g/dL Albumin 5.4 H (3.5-5.0) g/dL Lipase < 4 L (8-78) U/L Urine Color Urine Appearance Urine pH (5.0-9.0) Ur Specific Maxwell (1.005-1.025) Urine Protein (Neg-Trace) mg/dL Urine Glucose (UA) (Negative) mg/dL Urine Ketones (Negative) mg/dL Urine Blood (Negative) Urine Nitrite (Negative) Ur Leukocyte Esterase (Negative) Urine RBC (0-2) /HPF Urine WBC (0-5) /HPF Ur Squamous Epith Cells (0-2) /HPF Urine Bacteria (None Seen) Hyaline Casts (0-2) /LPF Acetone, Qual Small H (Negative) 09/09/22 09/09/22 09/09/22 Range/Units 01:28 06:50 06:52 WBC (4.8-10.8) X10*3/uL RBC (4.60-5.80) X10*6/uL Hgb (14.0-18.0) g/dl Hct (42.0-52.0) % MCV (80.0-98.0) fL MCH (27.0-33.0) pg MCHC (31.0-36.0) g/dl RDW (11.0-16.0) % Plt Count (160-400) X10*3/uL MPV (9.4-12.4) fL Immature Gran % (Auto) (0.0-0.4) % Neut % (Auto) (45-73) % Lymph % (Auto) (20-40) % Preston % (Auto) (2-11) % Eos % (Auto) (0-4) % Baso % (Auto) (0-2) % Lymph # (Auto) (1.2-4.9) X10*3/uL Preston # (Auto) (0.1-1.2) X10*3/uL Eos # (Auto) (0.0-0.4) X10*3/uL Baso # (Auto) (0.0-0.2) X10*3/uL Abs Immat Gran (auto) (0.00-0.03) X10*3/uL Absolute Neuts (auto) (2.0-8.3) x10*3/uL Absolute Nucleated RBC (0.0-0.012) X10*3/uL Nucleated RBC % (auto) (0.0-0.2) /100WBC PT 14.8 H (10.0-13.1) SEC INR 1.3 H (0.9-1.1) APTT 27.7 (26.0-36.4) SEC VBG pH 7.31 L (7.32-7.43) VBG pCO2 36 mmHg VBG pO2 40 mmHg VBG HCO3 18 L (22-26) mmol/L VBG O2 Saturation 59.0 % VBG Base Excess -6.4 mmol/L Sodium (135-145) mmol/L Potassium (3.3-5.1) mmol/L Chloride (96-108) mmol/L Carbon Dioxide (22-29) mmol/L Anion Gap (12-20) BUN (9-16) mg/dL Creatinine (0.5-1.4) mg/dL Estim Creat Clear Calc Estimated GFR POC Glucose (60-115) mg/dL Random Glucose (60-115) mg/dL Calcium (8.4-10.2) mg/dL Total Bilirubin (0.0-1.0) mg/dL AST (5-37) U/L ALT (0-40) U/L Alkaline Phosphatase (39-117) U/L Total Protein (6.5-8.0) g/dL Albumin (3.5-5.0) g/dL Lipase (8-78) U/L Urine Color Yellow Urine Appearance Cloudy Urine pH 5.0 (5.0-9.0) Ur Specific Maxwell >= 1.030 H (1.005-1.025) Urine Protein 30 (1+) H (Neg-Trace) mg/dL Urine Glucose (UA) >=1000 H (Negative) mg/dL Urine Ketones >=160 (Negative) mg/dL Urine Blood Moderate (2+) H (Negative) Urine Nitrite Negative (Negative) Ur Leukocyte Esterase Negative (Negative) Urine RBC 6-10 H (0-2) /HPF Urine WBC 0-5 (0-5) /HPF Ur Squamous Epith Cells 0-2 (0-2) /HPF Urine Bacteria None Seen (None Seen) Hyaline Casts 0-2 (0-2) /LPF Acetone, Qual (Negative) 09/09/22 Range/Units 07:49 WBC (4.8-10.8) X10*3/uL RBC (4.60-5.80) X10*6/uL Hgb (14.0-18.0) g/dl Hct (42.0-52.0) % MCV (80.0-98.0) fL MCH (27.0-33.0) pg MCHC (31.0-36.0) g/dl RDW (11.0-16.0) % Plt Count (160-400) X10*3/uL MPV (9.4-12.4) fL Immature Gran % (Auto) (0.0-0.4) % Neut % (Auto) (45-73) % Lymph % (Auto) (20-40) % Preston % (Auto) (2-11) % Eos % (Auto) (0-4) % Baso % (Auto) (0-2) % Lymph # (Auto) (1.2-4.9) X10*3/uL Preston # (Auto) (0.1-1.2) X10*3/uL Eos # (Auto) (0.0-0.4) X10*3/uL Baso # (Auto) (0.0-0.2) X10*3/uL Abs Immat Gran (auto) (0.00-0.03) X10*3/uL Absolute Neuts (auto) (2.0-8.3) x10*3/uL Absolute Nucleated RBC (0.0-0.012) X10*3/uL Nucleated RBC % (auto) (0.0-0.2) /100WBC PT (10.0-13.1) SEC INR (0.9-1.1) APTT (26.0-36.4) SEC VBG pH (7.32-7.43) VBG pCO2 mmHg VBG pO2 mmHg VBG HCO3 (22-26) mmol/L VBG O2 Saturation % VBG Base Excess mmol/L Sodium (135-145) mmol/L Potassium (3.3-5.1) mmol/L Chloride (96-108) mmol/L Carbon Dioxide (22-29) mmol/L Anion Gap (12-20) BUN (9-16) mg/dL Creatinine (0.5-1.4) mg/dL Estim Creat Clear Calc Estimated GFR POC Glucose 307 H (60-115) mg/dL Random Glucose (60-115) mg/dL Calcium (8.4-10.2) mg/dL Total Bilirubin (0.0-1.0) mg/dL AST (5-37) U/L ALT (0-40) U/L Alkaline Phosphatase (39-117) U/L Total Protein (6.5-8.0) g/dL Albumin (3.5-5.0) g/dL Lipase (8-78) U/L Urine Color Urine Appearance Urine pH (5.0-9.0) Ur Specific Maxwell (1.005-1.025) Urine Protein (Neg-Trace) mg/dL Urine Glucose (UA) (Negative) mg/dL Urine Ketones (Negative) mg/dL Urine Blood (Negative) Urine Nitrite (Negative) Ur Leukocyte Esterase (Negative) Urine RBC (0-2) /HPF Urine WBC (0-5) /HPF Ur Squamous Epith Cells (0-2) /HPF Urine Bacteria (None Seen) Hyaline Casts (0-2) /LPF Acetone, Qual (Negative) Discharge Plan Discharge Clinical Impression: Diabetes mellitus with gastroparesis, Acute kidney injury, Volume depletion Patient Disposition: Still a Patient Prescriptions: No Action (DME) blood-glucose meter [FreeStyle Lite Meter] Kit See Rx Instructions .Route Qty: 1 0RF Rx Instructions: As directed (DME) crutch tips 05/17 See Rx Instructions .Route .MEDSUPPLY Qty: 2 0RF Rx Instructions: As directed omeprazole 40 mg capsule,delayed release(DR/EC) 40 mg PO BID Qty: 90 1RF (DME) ankle wraps See Rx Instructions .Route .MEDSUPPLY Qty: 1 0RF Rx Instructions: As directed glipizide 5 mg tablet 5 mg PO DAILY 30 Days Qty: 90 1RF (DME) wheelchair electric See Rx Instructions .Route .MEDSUPPLY Qty: 1 0RF Rx Instructions: As directed (DME) FreeStyle Test Strip See Rx Instructions .Route Qty: 50 11RF Rx Instructions: Use 1 test strip once a day extra depth diabetic shoes with 3 pair custom .Route Rx Instructions: .Routeheat-molded multi-density innersoles
[2022-09-09 05:44] LABS: Acetone, serum QL Small (Negative)
[2022-09-09] MEDS: Ketorolac Tromethamine 15 MG/ML VIAL 10 MG IVPUSH (06:05)
[2022-09-09] MEDS: Metoclopramide HCl 10 MG/2 ML VIAL IVPUSH (06:05)
[2022-09-09] MEDS: diphenhydrAMINE HCL 50 MG/ML VIAL 25 MG IVPUSH (06:05)
[2022-09-09] MEDS: Insulin Regular, Human 100 UNIT/ML 3 ML VIAL 10 UNIT IVPUSH (06:06)
[2022-09-09] MEDS: Lactated Ringers 1,000 ML 999 ML IV (06:10)
[2022-09-09 07:01] LABS: Appearance Urine Cloudy; Color Urine Yellow; Glucose Urine UA >=1000 mg/dL (Negative); Leukocyte Esterase Urine Negative (Negative); Nitrite Urine Negative (Negative); Specific Gravity - Urine >= 1.030 (1.005-1.025); UMIC TRIGGER UACC YES; Urine Blood Moderate (2+) (Negative); Urine Ketones >=160 mg/dL (Negative); Urine Protein 30 (1+) mg/dL (Neg-Trace)
[2022-09-09 07:01] LABS: VBG Base Excess -6.4 mmol/L; VBG HCO3 18 mmol/L (22-26); VBG pCO2 36 mmHg; VBG pH 7.31 (7.32-7.43); VBG pO2 40 mmHg
[2022-09-09 07:10] LABS: Bacteria Urine None Seen (None Seen); Hyaline Casts Urine 0-2 /LPF (0-2); Squamous Epithelial Cell Urine 0-2 /HPF (0-2); WBC Urine 0-5 /HPF (0-5)
[2022-09-09 07:25] LABS: Venous Blood Gas Refer to POC result
[2022-09-09] MEDS: 0.9 % Sodium Chloride 1,000 ML 999 ML IV ×2 (07:50→15:16)
[2022-09-09 07:52] LABS: Glucose, Whole Blood 307 mg/dL (60-115)
--- NOTE | 2022-09-09 07:55 | PC.NURSE ---
pt. complains of abd. pain 06/19. N/V/D for the past 4 days. headache 06/19. PB 145/91 no hx of HTN. does not take any meds of high blood presure. HX of diabetes POC 307. Takes PO med for diabetes. IV in place on rt ac and left hand. LR running. Gave him pepsin and Versed for anxiety. Now resting comfortably
[2022-09-09] MEDS: Famotidine/PF 20 MG/2 ML VIAL IVPUSH ×2 (08:08→22:20)
[2022-09-09 10:12] LABS: Anion Gap 20 (12-20); Blood Urea Nitrogen 34 mg/dL (9-16); Calcium 8.3 mg/dL (8.4-10.2); Carbon Dioxide 20 mmol/L (22-29); Chloride 105 mmol/L (96-108); Creatinine Clr Calc Pharmacy 55.6; Estimated Glomerular Filt Rate > 60; Glucose Random 278 mg/dL (60-115); Potassium 3.7 mmol/L (3.3-5.1); Sodium 141 mmol/L (135-145)
--- NOTE | 2022-09-09 12:49 | PC.NURSE ---
pt reports abd pain 08/19 MD aware. He has drank 2 diet sari karsten and tolerated it well. pt reports no nausea or vomiting at this time
[2022-09-09 14:03] LABS: Alanine Aminotransferase 22 U/L (0-40); Albumin Level 3.8 g/dL (3.5-5.0); Alkaline Phosphatase 59 U/L (39-117); Aspartate Amino Transferase 18 U/L (5-37); Bilirubin Direct 0.2 mg/dL (0.0-0.5); Bilirubin Total 0.5 mg/dL (0.0-1.0); Lipase 13 U/L (8-78); Total Protein 6.1 g/dL (6.5-8.0)
[2022-09-09] MEDS: iohexoL 350 MG/ML 100 ML INFUS..BTL IV (14:41)
--- NOTE | 2022-09-09 15:25 | PC.NURSE ---
pt complaining of abd. pain 24/08. md aware. MD asked to give him saltines to see how he would tolerate it. When I went in to give him the saltines, he was vomiting. POC 235. pt skin cold to the touch, patient asked for another blanket.
[2022-09-09 15:32] LABS: Glucose, Whole Blood 235 mg/dL (60-115)
[2022-09-09 16:19] LABS: MANUAL DIFF FLAG NO
[2022-09-09 16:24] LABS: Hematocrit 39.3 % (42.0-52.0); Hemoglobin 13.6 g/dl (14.0-18.0); Imm Gran Abs Auto 0.02 X10*3/uL (0.00-0.03); Imm Gran Pct Auto 0.3 % (0.0-0.4); Lymphocytes Absolute Auto 1.1 X10*3/uL (1.2-4.9); Lymphocytes Percent Auto 17.4 % (20-40); Mean Corpuscular HGB Conc 34.6 g/dl (31.0-36.0); Mean Corpuscular Hemoglobin 30.2 pg (27.0-33.0); Mean Corpuscular Volume 87.1 fL (80.0-98.0); Monocytes Absolute Auto 0.7 X10*3/uL (0.1-1.2); Monocytes Percent Auto 11.2 % (2-11); Neutrophils Absolute Auto 4.6 x10*3/uL (2.0-8.3); Neutrophils Percent Auto 71.1 % (45-73); Platelet Count 177 X10*3/uL (160-400); Red Blood Count 4.51 X10*6/uL (4.60-5.80); Red Cell Distribution Width 11.9 % (11.0-16.0); White Blood Count 6.5 X10*3/uL (4.8-10.8)
[2022-09-09 16:39] LABS: Alanine Aminotransferase 23 U/L (0-40); Albumin Level 3.8 g/dL (3.5-5.0); Alkaline Phosphatase 60 U/L (39-117); Anion Gap 18 (12-20); Aspartate Amino Transferase 21 U/L (5-37); Bilirubin Total 0.6 mg/dL (0.0-1.0); Blood Urea Nitrogen 25 mg/dL (9-16); Calcium 8.1 mg/dL (8.4-10.2); Carbon Dioxide 23 mmol/L (22-29); Chloride 100 mmol/L (96-108); Creatinine Clr Calc Pharmacy 59.9; Estimated Glomerular Filt Rate > 60; Glucose Random 245 mg/dL (60-115); Potassium 3.6 mmol/L (3.3-5.1); Sodium 137 mmol/L (135-145); Total Protein 6.1 g/dL (6.5-8.0)
[2022-09-09 16:45] LABS: Acetone, serum QL Moderate (Negative)
--- NOTE | 2022-09-09 17:45 | PC.NURSE ---
pt not alert, non verbal. decrease mental status. had a syncope episode at home, was lowered to the grow. VS WNL. sat 100 on 4L oxymask. gave her Levetiracetam and she started shaking. gave her midazolam pt seems more calm, no shaking observed at this time. IV in place on left ac.
--- NOTE | 2022-09-09 18:10 | PC.NURSE ---
pt. resting comfortably. skin warm to the touch. color adequate to ethnicity. complains of pain 05/19. BP 148/84 other VS WNL. complains of nausea.
--- NOTE | 2022-09-09 18:56 | PM.IMHP ---
History of Present Illness Date of Service: 09/09/22 Attending physician on admission: Mani Valdes Chief Complaint: Nausea vomiting abdominal pain and headache 42-year-old gentleman with past medical history significant for cerebral palsy, history of diabetes mellitus type 2, history of gastroparesis presented to [facility] with 3 day history of headache that he described as a tight band pressure-like around his entire head, constant 10 of 10 associated with nausea vomiting and diarrhea patient has been feeling weak at home therefore came to the emergency room patient brother also had similar symptoms of nausea, vomiting ,abdominal discomfort and diarrhea as per patient due to other reasons of not tolerant to meat, in the emergency room patient noted to have normal CBC, wean as pH 7.31 and anion gap of 32 creatinine of 1.69 and a blood sugar of 461 patient treated in the emergency room with IV fluids regular insulin, blood sugar improved to 200 range, renal failure resolved and anion gap closed patient continued to have dry heaves and developed mid abdominal discomfort while in hospital, therefore CT abdomen was obtained that showed circumferential wall thickening of sigmoid colon nonspecific with differential of infection or inflammatory condition possibly subclinical or chronic colitis, neoplastic process less likely, GI consult recommended if patient's symptoms not improved for possible colonoscopy, since patient continue to have dry heaves, abdominal pain, unable to keep food down, with persistent ketones in urine he is being admitted to [facility]. Patient admits to smoking marijuana few times per night for sleep. Review of Systems Review of Systems: General headache resolved,no dizziness no fever chills. CVS no chest pain, no palpitation. 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) Alcohol intake: current Alcohol intake frequency: a few times a month Alcohol type: beer and hard liquor Patient Tobacco Use Status: Former Tobacco user Tobacco use type: Cigarette e-Cigarette/Vaping Use: Never Used Second Hand Smoke Exposure: No Substance Use Type: Marijuana Advance Directives: No service: No Current occupational status: disabled Cognitive needs: Yes Hearing needs: No Vision needs: Yes Meds Allergies Allergy/AdvReac Type Severity Reaction Status Date / Time No Known Allergies Allergy Verified 09/08/22 22:48 Active Medications: Current Medications Acetaminophen (Acetaminophen 325 Mg Tablet) 650 mg PO Q6H PRN PRN Reason: Pain, Mild (Pain Scale 1-3) Dextrose (Dextrose 50 % 25 Gm/50 Ml Syringe) 25 gm IVPUSH Q15M PRN; Protocol PRN Reason: per Hypoglycemia Standing Ord. Famotidine (Famotidine/Pf 20 Mg/2 Ml Vial) 20 mg IVPUSH BID BOBO Glucose (Glucose Gel 15 Gm Gel..Gram.) 15 gm PO Q15M PRN; Protocol PRN Reason: per Hypoglycemia Standing Ord. Dextrose/Sodium Chloride (D5ns) 1,000 mls @ 100 mls/hr IVCONT .Q10H BOBO Sodium Chloride (Ns) 1,000 mls @ 250 mls/hr IVCONT .Q4H [facility] Stop: 09/09/22 22:59 Insulin Human Lispro (Insulin Lispro 100 Unit/Ml 3 Ml Vial) 0 unit SUBCUT QIDACHS [facility]; Protocol Morphine Sulfate (Morphine Sulfate 4 Mg/Ml Cartridge) 4 mg IVPUSH Q4H PRN; Protocol PRN Reason: Pain, Severe (Pain Scale 7-10) Ondansetron HCl (Ondansetron Hcl 4 Mg/2 Ml Vial) 4 mg IVPUSH Q8H PRN PRN Reason: Nausea and Vomiting Pharmacy Consult (Consult Rx Perform Med Rec) 1 each MISCELLANE ONCE PRN PRN Reason: Consult order Sodium Chloride (0.9 % Sodium Chloride Flush 3 Ml Syringe) 3 ml IVFLUSH QSHIFT [facility] Home Medications Medication Instructions Recorded Confirmed Last Taken Type extra depth diabetic shoes with 3 .Route 08/27/22 Unknown History pair custom Physical Exam Vital Signs and Narrative: Vital Signs: Last Vital Signs Temp 98.6 F 09/09/22 18:08 Pulse 62 09/09/22 18:08 Resp 18 09/09/22 18:08 BP 138/82 09/09/22 18:08 Pulse Ox 99 09/09/22 18:08 O2 Del Method 09/09/22 18:08 BMI result Body Mass Index 18.0 Const: Other: General awake alert x3, resting comfortably in no acute distress. Neck supple no JVD. CVS regular rate rhythm, Respiratory lungs clear to auscultation, no respiratory distress, no wheeze, no rhonchi. Gastrointestinal abdomen soft, mid abdominal tenderness with palpation, nondistended, bowel sounds audible, no guarding , no rigidity. Extremities no edema/lower extremity muscular atrophy. Neuro nonfocal , moving all 4 extremity speech clear. Skin no rash Results Labs CBC and Chem 7: 09/09/22 16:12 09/09/22 16:12 Labs: Laboratory Results - last 24 hr 09/09/22 09/09/22 09/09/22 01:27 01:27 01:27 MCV 87.7 MCH 30.6 MCHC 34.8 RDW 11.7 Plt Count 222 MPV 8.9 L Immature Gran % (Auto) 0.4 Neut % (Auto) 87.0 H Lymph % (Auto) 6.0 L Gaines % (Auto) 6.5 Eos % (Auto) 0.0 Baso % (Auto) 0.1 Lymph # (Auto) 0.5 L Gaines # (Auto) 0.6 Eos # (Auto) 0.0 Baso # (Auto) 0.0 Abs Immat Gran (auto) 0.03 Absolute Neuts (auto) 7.5 Absolute Nucleated RBC 0.000 Nucleated RBC % (auto) 0.0 PT INR APTT VBG pH VBG pCO2 VBG pO2 VBG HCO3 VBG O2 Saturation VBG Base Excess Anion Gap 32 H Estim Creat Clear Calc 41.1 Estimated GFR 44 POC Glucose Random Glucose 461 H* Calcium 10.0 D Total Bilirubin 1.1 H Direct Bilirubin AST 27 ALT 36 Alkaline Phosphatase 88 Total Protein 8.9 H Albumin 5.4 H Lipase < 4 L Urine Color Urine Appearance Urine pH Ur Specific Stryker Urine Protein Urine Glucose (UA) Urine Ketones Urine Blood Urine Nitrite Ur Leukocyte Esterase Urine RBC Urine WBC Ur Squamous Epith Cells Urine Bacteria Hyaline Casts Acetone, Qual Small H 09/09/22 09/09/22 09/09/22 01:28 06:50 06:52 MCV MCH MCHC RDW Plt Count MPV Immature Gran % (Auto) Neut % (Auto) Lymph % (Auto) Gaines % (Auto) Eos % (Auto) Baso % (Auto) Lymph # (Auto) Gaines # (Auto) Eos # (Auto) Baso # (Auto) Abs Immat Gran (auto) Absolute Neuts (auto) Absolute Nucleated RBC Nucleated RBC % (auto) PT 14.8 H INR 1.3 H APTT 27.7 VBG pH 7.31 L VBG pCO2 36 VBG pO2 40 VBG HCO3 18 L VBG O2 Saturation 59.0 VBG Base Excess -6.4 Anion Gap Estim Creat Clear Calc Estimated GFR POC Glucose Random Glucose Calcium Total Bilirubin Direct Bilirubin AST ALT Alkaline Phosphatase Total Protein Albumin Lipase Urine Color Yellow Urine Appearance Cloudy Urine pH 5.0 Ur Specific Stryker >= 1.030 H Urine Protein 30 (1+) H Urine Glucose (UA) >=1000 H Urine Ketones >=160 Urine Blood Moderate (2+) H Urine Nitrite Negative Ur Leukocyte Esterase Negative Urine RBC 6-10 H Urine WBC 0-5 Ur Squamous Epith Cells 0-2 Urine Bacteria None Seen Hyaline Casts 0-2 Acetone, Qual 09/09/22 09/09/22 09/09/22 07:49 09:47 15:28 MCV MCH MCHC RDW Plt Count MPV Immature Gran % (Auto) Neut % (Auto) Lymph % (Auto) Gaines % (Auto) Eos % (Auto) Baso % (Auto) Lymph # (Auto) Gaines # (Auto) Eos # (Auto) Baso # (Auto) Abs Immat Gran (auto) Absolute Neuts (auto) Absolute Nucleated RBC Nucleated RBC % (auto) PT INR APTT VBG pH VBG pCO2 VBG pO2 VBG HCO3 VBG O2 Saturation VBG Base Excess Anion Gap 20 Estim Creat Clear Calc 55.6 Estimated GFR > 60 POC Glucose 307 H 235 H Random Glucose 278 H D Calcium 8.3 L D Total Bilirubin 0.5 Direct Bilirubin 0.2 AST 18 ALT 22 Alkaline Phosphatase 59 D Total Protein 6.1 L D Albumin 3.8 D Lipase 13 Urine Color Urine Appearance Urine pH Ur Specific Stryker Urine Protein Urine Glucose (UA) Urine Ketones Urine Blood Urine Nitrite Ur Leukocyte Esterase Urine RBC Urine WBC Ur Squamous Epith Cells Urine Bacteria Hyaline Casts Acetone, Qual 09/09/22 09/09/22 16:12 16:12 MCV 87.1 MCH 30.2 MCHC 34.6 RDW 11.9 Plt Count 177 MPV 9.0 L Immature Gran % (Auto) 0.3 Neut % (Auto) 71.1 Lymph % (Auto) 17.4 L Gaines % (Auto) 11.2 H Eos % (Auto) 0.0 Baso % (Auto) 0.0 Lymph # (Auto) 1.1 L Gaines # (Auto) 0.7 Eos # (Auto) 0.0 Baso # (Auto) 0.0 Abs Immat Gran (auto) 0.02 Absolute Neuts (auto) 4.6 Absolute Nucleated RBC 0.000 Nucleated RBC % (auto) 0.0 PT INR APTT VBG pH VBG pCO2 VBG pO2 VBG HCO3 VBG O2 Saturation VBG Base Excess Anion Gap 18 Estim Creat Clear Calc 59.9 Estimated GFR > 60 POC Glucose Random Glucose 245 H Calcium 8.1 L Total Bilirubin 0.6 Direct Bilirubin AST 21 ALT 23 Alkaline Phosphatase 60 Total Protein 6.1 L Albumin 3.8 Lipase Urine Color Urine Appearance Urine pH Ur Specific Stryker Urine Protein Urine Glucose (UA) Urine Ketones Urine Blood Urine Nitrite Ur Leukocyte Esterase Urine RBC Urine WBC Ur Squamous Epith Cells Urine Bacteria Hyaline Casts Acetone, Qual Moderate H Imaging Radiologist's Impressions: Impressions Abdomen/Pelvis CT 09/09/22 14:39 IMPRESSION: 1. Segment of the sigmoid colon exhibits circumferential wall thickening nonspecific, differential would include most commonly infection and inflammatory condition, possibly subclinical or chronic colitis, neoplastic process less likely present in this diffuse fashion however not entirely excluded, would recommend GI consultation, if patient remain symptomatic may consider follow-up colonoscopy. 2. Redemonstration of bilateral nonobstructing kidney stones, no hydronephrosis. 3. Redemonstration of multiple bilateral renal cysts, there are few hemorrhagic cysts, the largest on the right measure up to 3.9 cm Bosniak class I, no solid renal lesion found. 4. No CT evidence of bowel obstruction. No free air or fluid. No adenopathy. Assessment and Plan (1) Diabetes mellitus with gastroparesis: Status: Acute (2) Acute kidney injury: Status: Acute (3) Volume depletion: Status: Acute (4) Cerebral palsy: Qualifiers: Cerebral palsy type: spastic diplegic Qualified Code(s): G80.1 - Spastic diplegic cerebral palsy Status: Acute (5) GERD (gastroesophageal reflux disease): Qualifiers: Esophagitis presence: esophagitis presence not specified Qualified Code(s): K21.9 - Gastro-esophageal reflux disease without esophagitis Status: Acute Plan 42-year-old gentleman with past medical history significant for cerebral palsy presented initially to [facility] with headache nausea vomiting epigastric pain and diarrhea patient diagnosed to have acute renal failure anion gap acidosis patient treated with IV fluid, insulin headache improved but patient developed mid epigastric pain with persistent dry heaving is a unable to keep food down therefore being admitted to [facility] with a diagnosis of possible mild colitis/marijuana related cyclic vomiting/gastroparesis DKA Resolved/will treat with IV fluids, check blood sugars, placed on diabetic diet, insulin sliding scale, check hemoglobin A1c, monitor BMP Intractable nausea, vomiting, abdominal pain and diarrhea Differential diagnosis gastroparesis/due to DKA/Marijuana induced cyclical vomiting/mild colitis Will treat with antiemetics, IV Pepcid b.i.d., as needed Reglan, hold antibiotics since patient afebrile with normal WBC Supportive care follow clinical course Will obtain GI consult if not better GRAY resolved with IV fluids likely dehydration due to hyperglycemia History of cerebral palsy History of depression not on medications DVT prophylaxis with mechanical compression boots Code status full code in my clinical opinion patient will require 2 night inpatient hospitalization due to acute DKA intractable nausea vomiting requiring IV fluids not tolerating diet. Quality Stroke Does the patient have a stroke diagnosis?: No VTE Prior VTE?: No VTE Risk Level:: Medical - moderate - high VTE Device Contraindication: N/A - Device Ordered VTE Drug Contraindication: Treatment Not Indicated
[2022-09-09] MEDS: Dextrose 5 % and 0.9 % NaCl 1,000 ML 100 ML IVCONT (19:38)
--- NOTE | 2022-09-09 19:40 | PHA.MEDREC ---
Pharmacy Consult ? Medication Reconciliation Pharmacy has completed the medication reconciliation.
[2022-09-09] MEDS: Morphine Sulfate 4 MG/ML CARTRIDGE IVPUSH (19:43)
[2022-09-09] MEDS: ondansetron HCL 4 MG/2 ML VIAL IVPUSH (19:44)
[2022-09-09] MEDS: 0.9 % Sodium Chloride 1,000 ML 250 ML IVCONT (20:13)
--- NOTE | 2022-09-09 20:19 | PC.NURSE ---
Pt V/S are stable, Pt is on the telemetry and it shows elevated T waves and NSR. Pt IVF are running at 250 ml/hr, and Dextrose IVF was cancel by Dr. Jyoti perez. Pt was administered meds as order. POC 190. Will continue to monitor.
[2022-09-09 21:57] LABS: Glucose, Whole Blood 195 mg/dL (60-115)
[2022-09-09 22:10] LABS: Glucose, Whole Blood 190 mg/dL (60-115)
--- NOTE | 2022-09-09 23:48 | PC.NURSE ---
0000 rounding done ,pt is asleep urinal at bedside ,call velásquez within reach .
[2022-09-10 01:05] VITALS: RESP 16
[2022-09-10] MEDS: Morphine Sulfate 4 MG/ML CARTRIDGE IVPUSH ×5 (01:05→20:42)
[2022-09-10] MEDS: 0.9 % Sodium Chloride Flush 3 ML SYRINGE IVFLUSH ×2 (01:06→07:55)
[2022-09-10 01:43] LABS: COVID-19 Test Positive (Negative)
[2022-09-10] MEDS: ondansetron HCL 4 MG/2 ML VIAL IVPUSH ×2 (04:15→16:32)
[2022-09-10 04:30] VITALS: BP 153/77; PULSE 102; RESP 18; TEMP 37; O2SAT 100
[2022-09-10 05:49] VITALS: RESP 16
[2022-09-10 06:26] LABS: MANUAL DIFF FLAG NO
[2022-09-10 06:31] LABS: Hemoglobin 13.5 g/dl (14.0-18.0); Imm Gran Abs Auto 0.01 X10*3/uL (0.00-0.03); Imm Gran Pct Auto 0.2 % (0.0-0.4); Lymphocytes Absolute Auto 1.2 X10*3/uL (1.2-4.9); Lymphocytes Percent Auto 19.3 % (20-40); Mean Corpuscular HGB Conc 34.6 g/dl (31.0-36.0); Mean Corpuscular Volume 86.7 fL (80.0-98.0); Mean Platelet Volume 9.3 fL (9.4-12.4); Monocytes Absolute Auto 0.6 X10*3/uL (0.1-1.2); Monocytes Percent Auto 8.6 % (2-11); Neutrophils Absolute Auto 4.6 x10*3/uL (2.0-8.3); Neutrophils Percent Auto 71.9 % (45-73); Platelet Count 167 X10*3/uL (160-400); Red Cell Distribution Width 11.8 % (11.0-16.0); White Blood Count 6.4 X10*3/uL (4.8-10.8)
[2022-09-10 06:59] LABS: Anion Gap 18 (12-20); Blood Urea Nitrogen 15 mg/dL (9-16); Carbon Dioxide 23 mmol/L (22-29); Chloride 102 mmol/L (96-108); Creatinine Clr Calc Pharmacy 81.8; Estimated Glomerular Filt Rate > 60; Glucose Random 202 mg/dL (60-115); Potassium 3.6 mmol/L (3.3-5.1); Sodium 139 mmol/L (135-145)
[2022-09-10 07:00] LABS: Magnesium 1.8 mg/dL (1.6-2.6)
[2022-09-10] MEDS: Insulin Lispro 100 UNIT/ML 3 ML VIAL SUBCUT (07:55)
[2022-09-10] MEDS: Famotidine/PF 20 MG/2 ML VIAL IVPUSH ×2 (08:02→20:42)
[2022-09-10 08:35] LABS: Estimated Average Glucose 283 mg/dL; Hemoglobin A1c % 11.5 %
[2022-09-10 09:04] LABS: Glucose, Whole Blood 185 mg/dL (60-115)
[2022-09-10 09:16] VITALS: BP 157/81; PULSE 62; RESP 14; TEMP 36.6; O2SAT 98
--- NOTE | 2022-09-10 10:00 | P.CNGI_ITS ---
History of Present Illness Data of Consult Service Date: 09/10/22 Requesting physician: Any Mckeon / [facility] Primary Care Provider: Isabell Young MD HPI Reason for consult: nausea, vomiting 42-year-old gentleman with history of cerebral palsy, diabetes mellitus type 2, history of gastroparesis and erosive esophagitis who I am seeing for assessment for assorted systemic symptoms. Patient initially presented with 3 d hx of tight band like headache 10/10 with nausea and dark emesis, with non bloody diarrhea and non radiating epigastric pain 5/10 in severity without any precipitants or relieving factors. he has had no appetite. Been compliant with home PPI dose. He denies fever but did have runny nose and dry cough at start of symptoms. denies sputum. no rectal bleeding or melena. since admission diarrhea seems to have stopped and nausea is less. Brother also had similar sx last week. CT done which revealed non specific thickening of sigmoid colon. labs with pos covid, HGB steady at 13 (had been 17 prob from dehydration), acetones in urine, nml bicarb Review of Systems Review of Systems: Constitutional : No Weight loss, No Fever, No Chills ENT/Mouth : No sore throat, No Rhinorrhea Eyes: No Swelling, No Redness Cardiovascular : No Chest Pain, No SOB, No Edema Respiratory : No Cough, No Sputum, No Wheezing Gastrointestinal : see HPI Genitourinary : NO Dysuria, No Urinary Frequency, No Hematuria, No Urgency Musculoskeletal : No joint pain, No Myalgias, No Joint Swelling Skin : No Skin Lesions, No rash Neuro : + Weakness, No Numbness, No Dizziness, No Headache Psych : No Anxiety/Panic, No Depression Heme/Lymph: No Bruising, No Lymphadenopathy Endocrine : No Polyuria, No Polydipsia All other systems reviewed and are negative. 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) Alcohol intake: current Alcohol intake frequency: does not drink Alcohol type: beer and hard liquor Patient Tobacco Use Status: Former Tobacco user Tobacco use type: Cigarette Smoked in Last 30 Days: No e-Cigarette/Vaping Use: Never Used Second Hand Smoke Exposure: No Use of substances other than those prescribed or required for medical reasons: Yes Substance Use Type: Marijuana Advance Directives: No service: No Current occupational status: disabled Cognitive needs: Yes Hearing needs: No Vision needs: Yes Meds Allergies Allergy/AdvReac Type Severity Reaction Status Date / Time No Known Allergies Allergy Verified 09/08/22 22:48 Active Medications: Current Medications Acetaminophen (Acetaminophen 325 Mg Tablet) 650 mg PO Q6H PRN PRN Reason: Pain, Mild (Pain Scale 1-3) Dextrose (Dextrose 50 % 25 Gm/50 Ml Syringe) 25 gm IVPUSH Q15M PRN; Protocol PRN Reason: per Hypoglycemia Standing Ord. Famotidine (Famotidine/Pf 20 Mg/2 Ml Vial) 20 mg IVPUSH BID [facility] Last Admin: 09/10/22 08:02 Dose: 20 mg Glucose (Glucose Gel 15 Gm Gel..Gram.) 15 gm PO Q15M PRN; Protocol PRN Reason: per Hypoglycemia Standing Ord. Insulin Human Lispro (Insulin Lispro 100 Unit/Ml 3 Ml Vial) 0 unit SUBCUT QIDACHS [facility]; Protocol Last Admin: 09/10/22 07:55 Dose: 2 unit Morphine Sulfate (Morphine Sulfate 4 Mg/Ml Cartridge) 4 mg IVPUSH Q4H PRN; Protocol PRN Reason: Pain, Severe (Pain Scale 7-10) Last Admin: 09/10/22 05:49 Dose: 4 mg Ondansetron HCl (Ondansetron Hcl 4 Mg/2 Ml Vial) 4 mg IVPUSH Q8H PRN PRN Reason: Nausea and Vomiting Last Admin: 09/10/22 04:15 Dose: 4 mg Pharmacy Consult (Consult Rx Perform Med Rec) 1 each MISCELLANE ONCE PRN PRN Reason: Consult order Sodium Chloride (0.9 % Sodium Chloride Flush 3 Ml Syringe) 3 ml IVFLUSH QSHIFT [facility] Last Admin: 09/10/22 07:55 Dose: 3 ml Home Medications Medication Instructions Recorded Confirmed Last Taken Type extra depth diabetic shoes with 3 .Route 08/27/22 Unknown History pair custom Physical Exam Vital Signs: Vital Signs: Last Vital Signs Temp 97.9 F 09/10/22 09:16 Pulse 62 09/10/22 09:16 Resp 14 09/10/22 09:16 BP 157/81 H 09/10/22 09:16 Pulse Ox 98 09/10/22 09:16 O2 Del Method 09/10/22 09:16 BMI result Body Mass Index 18.0 EXAM: GENERAL: The patient is well developed and nontoxic. VITAL SIGNS:see workflow HEENT: Nonicteric sclerae, PERRLA, EOMI. Oropharynx clear. Moist mucous membrane s. Conjunctivae appear well perfused. No thyroid mass. CHEST: Chest wall is nontender. HEART: Regular rate and rhythm without murmurs. LUNGS: Clear to auscultation bilaterally. ABDOMEN: Soft, positive bowel sounds, tender epigastrium, no organomegaly.no flank tenderness SKIN: No rash, no excessive bruising, petechiae, or purpura. NEUROLOGIC: Cranial nerves II-XII intact without motor/sensory deficit. psych- nml affect Results Labs CBC & Chem 7: 09/10/22 06:03 09/10/22 06:03 Labs: Short CBC 09/09/22 09/10/22 Range/Units 16:12 06:03 WBC 6.5 6.4 (4.8-10.8) X10*3/uL Hgb 13.6 L D 13.5 L (14.0-18.0) g/dl Hct 39.3 L D 39.0 L (42.0-52.0) % Plt Count 177 167 (160-400) X10*3/uL BMP 09/09/22 09/09/22 09/10/22 09:47 16:12 06:03 Sodium 141 137 139 Potassium 3.7 3.6 3.6 Chloride 105 100 102 Carbon Dioxide 20 L 23 23 BUN 34 H 25 H 15 Creatinine 1.25 1.16 0.85 Calcium 8.3 L D 8.1 L 8.0 L Liver Function 09/09/22 09/09/22 Range/Units 09:47 16:12 Total Bilirubin 0.5 0.6 (0.0-1.0) mg/dL Direct Bilirubin 0.2 (0.0-0.5) mg/dL AST 18 21 (5-37) U/L ALT 22 23 (0-40) U/L Alkaline Phosphatase 59 D 60 (39-117) U/L Albumin 3.8 D 3.8 (3.5-5.0) g/dL Imaging CT scan - abdomen: Attestation: I personally reviewed and interpreted this imaging study as follows: (thickened stomach with fluid, stool thru out colon, renal cysts, colonic thickening not really appreciated on my read, seems to have active peristalsis, scoliosis ) Assessment and Plan (1) COVID-19: Status: Acute (2) Gastroparesis: Status: Acute Plan 1/ Systemic symptoms of diarrhea, nausea, headache, in setting of simialr sx in brother and covid pos test. I think covid could explain all of this, and he seems to be already improving. doubt he has a colonic malignancy but can work up as outpatient with colonoscopy in near future. Covid could also be exacerbating his gastroparesis. PLAN: 1/ cont with PPI, fluids and rehydration 2/ O/p colonoscopy and f/u 3/ PO diet as tolerated. 4/ can use short term azithromycin for gastroparesis 250 mg daily if needed or low dose reglan Procedures Date of Service Date of Service: 09/10/22
--- NOTE | 2022-09-10 10:21 | PC.NURSE ---
patient currently sleeping, vitals previously stable, call velásquez within reach, will continue to monitor
--- NOTE | 2022-09-10 11:15 | PC.NURSE ---
pt medicated for 10/10 abd pain and ivf started per order
[2022-09-10] MEDS: Lactated Ringers 1,000 ML 80 ML IVCONT (11:16)
[2022-09-10 11:52] LABS: Glucose, Whole Blood 109 mg/dL (60-115)
--- NOTE | 2022-09-10 12:46 | MHC.CM.PN ---
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
--- NOTE | 2022-09-10 15:42 | P.PNIM_ITS ---
Subjective Subjective Date of Service: 09/10/22 Interval History: c/o nausea no further diarrhea Review of Systems Review of Systems: Yes all other systems are reviewed and are negative Physical Exam Vital Signs: Vital Signs: Last Vital Signs Temp 97.9 F 09/10/22 09:16 Pulse 62 09/10/22 09:16 Resp 14 09/10/22 09:16 BP 157/81 H 09/10/22 09:16 Pulse Ox 98 09/10/22 09:16 O2 Del Method 09/10/22 09:16 BMI result Body Mass Index 18.0 Gen: in no acute distress HEENT: sclera anicteric, moist mucus membranes Neck: supple Lungs: clear to auscultation bilaterally Heart: regular rate and rhythm, no murmurs Abd: soft, non-tender, non-distended Ext: no edema Skin: warm/well-perfused Neuro: alert and oriented x3, no focal findings Psych: appropriate affect Objective Data Active Medications Acetaminophen (Acetaminophen 325 Mg Tablet) 650 mg PO Q6H PRN PRN Reason: Pain, Mild (Pain Scale 1-3) Dextrose (Dextrose 50 % 25 Gm/50 Ml Syringe) 25 gm IVPUSH Q15M PRN; Protocol PRN Reason: per Hypoglycemia Standing Ord. Famotidine (Famotidine/Pf 20 Mg/2 Ml Vial) 20 mg IVPUSH BID [facility] Last Admin: 09/10/22 08:02 Dose: 20 mg Documented By: ADRI Glucose (Glucose Gel 15 Gm Gel..Gram.) 15 gm PO Q15M PRN; Protocol PRN Reason: per Hypoglycemia Standing Ord. Lactated Ringer's (Lr) 1,000 mls @ 80 mls/hr IVCONT .[id number] [facility] Last Admin: 09/10/22 11:16 Dose: 80 mls/hr Documented By: SHAMEKA Insulin Human Lispro (Insulin Lispro 100 Unit/Ml 3 Ml Vial) 0 unit SUBCUT QIDACHS [facility]; Protocol Last Admin: 09/10/22 13:35 Dose: Not Given Documented By: SHAMEKA Non-Admin Reason: No Insulin Coverage Morphine Sulfate (Morphine Sulfate 4 Mg/Ml Cartridge) 4 mg IVPUSH Q4H PRN; Protocol PRN Reason: Pain, Severe (Pain Scale 7-10) Last Admin: 09/10/22 11:13 Dose: 4 mg Documented By: SHAMEKA Ondansetron HCl (Ondansetron Hcl 4 Mg/2 Ml Vial) 4 mg IVPUSH Q8H PRN PRN Reason: Nausea and Vomiting Last Admin: 09/10/22 04:15 Dose: 4 mg Documented By: KELL Pharmacy Consult (Consult Rx Perform Med Rec) 1 each MISCELLANE ONCE PRN PRN Reason: Consult order Sodium Chloride (0.9 % Sodium Chloride Flush 3 Ml Syringe) 3 ml IVFLUSH QSHIFT [facility] Last Admin: 09/10/22 15:31 Dose: Not Given Documented By: SHAMEKA Non-Admin Reason: IV Running Labs CBC & Chem 7: 09/10/22 06:03 09/10/22 06:03 Labs: Laboratory Results - last 24 hr 09/09/22 09/09/22 09/09/22 16:12 16:12 20:04 MCV 87.1 MCH 30.2 MCHC 34.6 RDW 11.9 Plt Count 177 MPV 9.0 L Immature Gran % (Auto) 0.3 Neut % (Auto) 71.1 Lymph % (Auto) 17.4 L [place] % (Auto) 11.2 H Eos % (Auto) 0.0 Baso % (Auto) 0.0 Lymph # (Auto) 1.1 L [place] # (Auto) 0.7 Eos # (Auto) 0.0 Baso # (Auto) 0.0 Abs Immat Gran (auto) 0.02 Absolute Neuts (auto) 4.6 Absolute Nucleated RBC 0.000 Nucleated RBC % (auto) 0.0 Anion Gap 18 Estim Creat Clear Calc 59.9 Estimated GFR > 60 POC Glucose 190 H Random Glucose 245 H Estimat Average Glucose Hemoglobin A1c % Calcium 8.1 L Magnesium Total Bilirubin 0.6 AST 21 ALT 23 Alkaline Phosphatase 60 Total Protein 6.1 L Albumin 3.8 Acetone, Qual Moderate H COVID-19 (ANIKA) COVID-19 Clin Com 09/09/22 09/10/22 09/10/22 21:53 01:07 06:03 MCV 86.7 MCH 30.0 MCHC 34.6 RDW 11.8 Plt Count 167 MPV 9.3 L Immature Gran % (Auto) 0.2 Neut % (Auto) 71.9 Lymph % (Auto) 19.3 L [place] % (Auto) 8.6 Eos % (Auto) 0.0 Baso % (Auto) 0.0 Lymph # (Auto) 1.2 [place] # (Auto) 0.6 Eos # (Auto) 0.0 Baso # (Auto) 0.0 Abs Immat Gran (auto) 0.01 Absolute Neuts (auto) 4.6 Absolute Nucleated RBC 0.000 Nucleated RBC % (auto) 0.0 Anion Gap Estim Creat Clear Calc Estimated GFR POC Glucose 195 H Random Glucose Estimat Average Glucose Hemoglobin A1c % Calcium Magnesium Total Bilirubin AST ALT Alkaline Phosphatase Total Protein Albumin Acetone, Qual COVID-19 (ANIKA) Positive A COVID-19 Clin Com See Note 09/10/22 09/10/22 09/10/22 06:03 06:03 06:03 MCV MCH MCHC RDW Plt Count MPV Immature Gran % (Auto) Neut % (Auto) Lymph % (Auto) [place] % (Auto) Eos % (Auto) Baso % (Auto) Lymph # (Auto) [place] # (Auto) Eos # (Auto) Baso # (Auto) Abs Immat Gran (auto) Absolute Neuts (auto) Absolute Nucleated RBC Nucleated RBC % (auto) Anion Gap 18 Estim Creat Clear Calc 81.8 Estimated GFR > 60 POC Glucose Random Glucose 202 H Estimat Average Glucose 283 Hemoglobin A1c % 11.5 Calcium 8.0 L Magnesium 1.8 Total Bilirubin AST ALT Alkaline Phosphatase Total Protein Albumin Acetone, Qual COVID-19 (ANIKA) COVID-19 Clin Com 09/10/22 09/10/22 07:40 11:46 MCV MCH MCHC RDW Plt Count MPV Immature Gran % (Auto) Neut % (Auto) Lymph % (Auto) [place] % (Auto) Eos % (Auto) Baso % (Auto) Lymph # (Auto) [place] # (Auto) Eos # (Auto) Baso # (Auto) Abs Immat Gran (auto) Absolute Neuts (auto) Absolute Nucleated RBC Nucleated RBC % (auto) Anion Gap Estim Creat Clear Calc Estimated GFR POC Glucose 185 H 109 Random Glucose Estimat Average Glucose Hemoglobin A1c % Calcium Magnesium Total Bilirubin AST ALT Alkaline Phosphatase Total Protein Albumin Acetone, Qual COVID-19 (ANIKA) COVID-19 Clin Com Assessment and Plan (1) COVID-19: Status: Acute Plan d#2 42yo M with cerebral palsy, DM presenting with UGALDE/N/V/diarrhea, found to have GRAY and mid DKA # Covid-19 - not hypoxic- no steroids. will give remdesivir x3d given risk factors for severe disease of DM # DKA - resolved, continue insulin SQ # GRAY - resolved with IV fluids # vomiting - ?DM gastroparesis vs THC-related CVS # ?colitis - likely Covid vs. other virus- brother with similar symptoms. outpt C-scope per GI # DM2 - correction-dose lispro # VTE ppx - LMWH In my clinical judgment, the patient requires continued inpatient hospitalization for the following reasons: N/V, DKA, GRAY Quality Stroke Does the patient have a stroke diagnosis?: No VTE Prior VTE?: No VTE Risk Level:: Medical - moderate - high VTE Device Contraindication: N/A - Device Ordered VTE Drug Contraindication: Treatment Not Indicated
[2022-09-10] MEDS: Enoxaparin Sodium 40 MG/0.4 ML SYRINGE SUBCUT (16:36)
--- NOTE | 2022-09-10 16:37 | PC.NURSE ---
patient a&ox3, c/o 08/19 abd pain and nausea, pt medicated per order, will continue to monitor
[2022-09-10 16:38] LABS: Glucose, Whole Blood 165 mg/dL (60-115)
--- NOTE | 2022-09-10 19:41 | PC.NURSE ---
remdesivir pharmacy called, the order is being re-timed to 06/17
--- NOTE | 2022-09-10 20:02 | PC.NURSE ---
report given to JOHN Martinez
[2022-09-10 20:42] VITALS: RESP 20
[2022-09-10 20:57] LABS: Glucose, Whole Blood 212 mg/dL (60-115)
[2022-09-10] MEDS: Remdesivir 200 MG in 0.9 % Sodium Chloride 210 ML 105 MG IV (22:04)
[2022-09-10 23:26] VITALS: BP 179/87; PULSE 63; RESP 20; TEMP 36.7; O2SAT 97
[2022-09-11] MEDS: ondansetron HCL 4 MG/2 ML VIAL IVPUSH (00:07)
[2022-09-11] MEDS: Lactated Ringers 1,000 ML 80 ML IVCONT ×2 (00:12→11:58)
[2022-09-11] MEDS: Morphine Sulfate 4 MG/ML CARTRIDGE IVPUSH ×3 (01:40→20:35)
[2022-09-11 07:21] LABS: C Reactive Protein 0.38 mg/dL (< or = 0.50)
[2022-09-11 07:36] VITALS: BP 165/83; PULSE 68; RESP 18; TEMP 36.9; O2SAT 99
[2022-09-11 07:48] LABS: Glucose, Whole Blood 153 mg/dL (60-115)
[2022-09-11 08:15] LABS: Anion Gap 18 (12-20); Blood Urea Nitrogen 9 mg/dL (9-16); Carbon Dioxide 27 mmol/L (22-29); Chloride 96 mmol/L (96-108); Creatinine Clr Calc Pharmacy 95.2; Estimated Glomerular Filt Rate > 60; Glucose Random 162 mg/dL (60-115); Potassium 3.1 mmol/L (3.3-5.1); Sodium 138 mmol/L (135-145)
[2022-09-11] MEDS: Famotidine/PF 20 MG/2 ML VIAL IVPUSH ×2 (08:24→20:36)
[2022-09-11] MEDS: 0.9 % Sodium Chloride Flush 3 ML SYRINGE IVFLUSH ×2 (08:24→20:35)
[2022-09-11] MEDS: Insulin Lispro 100 UNIT/ML 3 ML VIAL SUBCUT ×3 (08:25→20:36)
[2022-09-11 11:12] LABS: Glucose, Whole Blood 168 mg/dL (60-115)
--- NOTE | 2022-09-11 12:02 | P.PNIM_ITS ---
Subjective Subjective Date of Service: 09/11/22 Interval History: c/o nausea and vomiting no further diarrhea Physical Exam Vital Signs: Vital Signs: Last Vital Signs Temp 98.4 F 09/11/22 07:36 Pulse 68 09/11/22 07:36 Resp 18 09/11/22 07:36 BP 165/83 H 09/11/22 07:36 Pulse Ox 99 09/11/22 07:36 O2 Del Method 09/11/22 07:36 BMI result Body Mass Index 18.0 Gen: in no acute distress HEENT: sclera anicteric, moist mucus membranes Neck: supple Lungs: clear to auscultation bilaterally Heart: regular rate and rhythm, no murmurs Abd: soft, non-tender, non-distended Ext: no edema Skin: warm/well-perfused Neuro: alert and oriented x3, no focal findings Psych: appropriate affect Objective Data Active Medications Acetaminophen (Acetaminophen 325 Mg Tablet) 650 mg PO Q6H PRN PRN Reason: Pain, Mild (Pain Scale 1-3) Dextrose (Dextrose 50 % 25 Gm/50 Ml Syringe) 25 gm IVPUSH Q15M PRN; Protocol PRN Reason: per Hypoglycemia Standing Ord. Enoxaparin Sodium (Enoxaparin Sodium 40 Mg/0.4 Ml Syringe) 40 mg SUBCUT Q24H [facility] Last Admin: 09/10/22 16:36 Dose: 40 mg Documented By: SHAMEKA Famotidine (Famotidine/Pf 20 Mg/2 Ml Vial) 20 mg IVPUSH BID [facility] Last Admin: 09/11/22 08:24 Dose: 20 mg Documented By: TAMMY Glucose (Glucose Gel 15 Gm Gel..Gram.) 15 gm PO Q15M PRN; Protocol PRN Reason: per Hypoglycemia Standing Ord. Lactated Ringer's (Lr) 1,000 mls @ 80 mls/hr IVCONT .[id number] [facility] Last Admin: 09/11/22 00:12 Dose: 80 mls/hr Documented By: NEHAL Remdesivir 100 mg/ Sodium (Chloride) 230 mls @ 115 mls/hr IV Q24H [facility] Stop: 09/12/22 21:59 Insulin Human Lispro (Insulin Lispro 100 Unit/Ml 3 Ml Vial) 0 unit SUBCUT QIDACHS [facility]; Protocol Last Admin: 09/11/22 08:25 Dose: 2 unit Documented By: TAMMY Morphine Sulfate (Morphine Sulfate 4 Mg/Ml Cartridge) 4 mg IVPUSH Q4H PRN; Protocol PRN Reason: Pain, Severe (Pain Scale 7-10) Last Admin: 09/11/22 08:24 Dose: 4 mg Documented By: TAMMY Ondansetron HCl (Ondansetron Hcl 4 Mg/2 Ml Vial) 4 mg IVPUSH Q8H PRN PRN Reason: Nausea and Vomiting Last Admin: 09/11/22 00:07 Dose: 4 mg Documented By: NEHAL Pharmacy Consult (Consult Rx Perform Med Rec) 1 each MISCELLANE ONCE PRN PRN Reason: Consult order Sodium Chloride (0.9 % Sodium Chloride Flush 3 Ml Syringe) 3 ml IVFLUSH QSHIFT [facility] Last Admin: 09/11/22 08:24 Dose: 3 ml Documented By: TAMMY Labs CBC & Chem 7: 09/10/22 06:03 09/11/22 06:30 Labs: Laboratory Results - last 24 hr 09/10/22 09/10/22 09/11/22 16:28 20:49 06:30 Anion Gap 18 Estim Creat Clear Calc 95.2 Estimated GFR > 60 POC Glucose 165 H 212 H Random Glucose 162 H Calcium 8.0 L C-Reactive Protein 0.38 09/11/22 09/11/22 07:41 10:56 Anion Gap Estim Creat Clear Calc Estimated GFR POC Glucose 153 H 168 H Random Glucose Calcium C-Reactive Protein Assessment and Plan (1) COVID-19: Status: Acute Plan d#3 42yo M with cerebral palsy, DM presenting with UGALDE/N/V/diarrhea, found to have GRAY and mid DKA # Covid-19 - not hypoxic- no steroids. remdesivir d#2/3 given risk factor for severe disease of DM # DKA - resolved, continue insulin SQ # GRAY - resolved with IV fluids # hypoK - replete, recheck BMP in AM # vomiting - ?DM gastroparesis vs THC-related CVS - perform gastric emptying study - prn ondansetron + add prn metoclopramide # ?colitis - likely Covid vs. other virus- brother with similar symptoms. outpt C-scope per GI # DM2 - correction-dose lispro # VTE ppx - LMWH In my clinical judgment, the patient requires continued inpatient hospitalization for the following reasons: N/V, DKA, GRAY Quality Stroke Does the patient have a stroke diagnosis?: No VTE Prior VTE?: No VTE Risk Level:: Medical - moderate - high VTE Device Contraindication: N/A - Device Ordered VTE Drug Contraindication: Treatment Not Indicated
[2022-09-11] MEDS: Potassium Chloride ER 20 MEQ TAB.ER.PRT 40 MEQ PO (12:37)
[2022-09-11] MEDS: Metoclopramide HCl 10 MG/2 ML VIAL 5 MG IVPUSH (12:38)
[2022-09-11 13:53] VITALS: BMI 18.0
--- NOTE | 2022-09-11 14:00 | MHC.CLN ---
PT IS MODERATELY MALNOURISHED PT WITH MILDLY DEPLETED SUBCUTANEOUS FAT AND MUSCLE MASS WITH BMI 18. ALTHOUGH, WT HAS INCREASED X 6 MONTHS PT NOW WITH ACUTE ILLNESS CAUSING N/V/D PO INTAKE 25% X 1 MEAL DIET RX: 2000DM-APPROPRIATE RECOMMEND ADDING ENSURE CLEAR TID TO INCREASE KCALS SUPP TO PROVIDE 720KCALS, 24G PROTEIN MONITOR PO INTAKE CLOSELY SEE ALSO FULL CLINICAL NUTRITION ASSESSMENT
--- NOTE | 2022-09-11 14:35 | MHC.CM.PN ---
Male 42 DX GRAY/DKA Covid+ Patient continues w N/V, no DC today. Per MD rounds Patient may discharge tomorrow. DP home with resumption of [facility] RN and PCP. Patient has arranged for transportation home.
[2022-09-11 15:27] VITALS: BP 156/79; PULSE 73; RESP 17; TEMP 37.3; O2SAT 73
[2022-09-11 16:16] LABS: Glucose, Whole Blood 111 mg/dL (60-115)
[2022-09-11] MEDS: Enoxaparin Sodium 40 MG/0.4 ML SYRINGE SUBCUT (16:40)
[2022-09-11 19:29] VITALS: BP 177/84; PULSE 66; RESP 13; TEMP 37.1; O2SAT 99
[2022-09-11 20:28] LABS: Glucose, Whole Blood 278 mg/dL (60-115)
[2022-09-11 20:35] VITALS: RESP 16
[2022-09-11] MEDS: Remdesivir 100 MG in 0.9 % Sodium Chloride 230 ML 115 MG IV (23:06)
[2022-09-12] VITALS: BP 140/87; PULSE 72; RESP 18; TEMP 37.2; O2SAT 99
[2022-09-12] MEDS: Lactated Ringers 1,000 ML 80 ML IVCONT ×2 (01:10→13:11)
[2022-09-12 04:00] VITALS: BP 157/77; PULSE 71; RESP 16; TEMP 37.1; O2SAT 98
[2022-09-12 07:23] LABS: Glucose, Whole Blood 148 mg/dL (60-115)
[2022-09-12 07:53] VITALS: BP 161/75; PULSE 72; RESP 20; TEMP 36.8; O2SAT 97
--- NOTE | 2022-09-12 08:57 | HO.PM.IMPN ---
Subjective Subjective Date of Service: 09/12/22 Interval History: still c/o N/V Review of Systems Review of Systems: Yes all other systems are reviewed and are negative Physical Exam Vital Signs: Vital Signs: Last Vital Signs Temp 98.2 F 09/12/22 07:53 Pulse 72 09/12/22 07:53 Resp 20 09/12/22 07:53 BP 161/75 H 09/12/22 07:53 Pulse Ox 97 09/12/22 07:53 O2 Del Method 09/12/22 07:53 BMI result Body Mass Index 18.0 Gen: in no acute distress HEENT: sclera anicteric, moist mucus membranes Neck: supple Lungs: clear to auscultation bilaterally Heart: regular rate and rhythm, no murmurs Abd: soft, non-tender, non-distended Ext: no edema Skin: warm/well-perfused Neuro: alert and oriented x3, no focal findings Psych: appropriate affect ? Objective Data Active Medications Acetaminophen (Acetaminophen 325 Mg Tablet) 650 mg PO Q6H PRN PRN Reason: Pain, Mild (Pain Scale 1-3) Dextrose (Dextrose 50 % 25 Gm/50 Ml Syringe) 25 gm IVPUSH Q15M PRN; Protocol PRN Reason: per Hypoglycemia Standing Ord. Enoxaparin Sodium (Enoxaparin Sodium 40 Mg/0.4 Ml Syringe) 40 mg SUBCUT Q24H [facility] Last Admin: 09/11/22 16:40 Dose: 40 mg Documented By: TAMMY Famotidine (Famotidine/Pf 20 Mg/2 Ml Vial) 20 mg IVPUSH BID [facility] Last Admin: 09/11/22 20:36 Dose: 20 mg Documented By: LAKESHA Glucose (Glucose Gel 15 Gm Gel..Gram.) 15 gm PO Q15M PRN; Protocol PRN Reason: per Hypoglycemia Standing Ord. Lactated Ringer's (Lr) 1,000 mls @ 80 mls/hr IVCONT .[id number] [facility] Last Admin: 09/12/22 01:10 Dose: 80 mls/hr Documented By: LAKESHA Remdesivir 100 mg/ Sodium (Chloride) 230 mls @ 115 mls/hr IV Q24H [facility] Stop: 09/12/22 21:59 Last Infusion: 09/12/22 02:21 Dose: 115 mls/hr Documented By: LAKESHA Insulin Human Lispro (Insulin Lispro 100 Unit/Ml 3 Ml Vial) 0 unit SUBCUT QIDACHS [facility]; Protocol Last Admin: 09/12/22 08:23 Dose: Not Given Documented By: COLBY Non-Admin Reason: No Insulin Coverage Metoclopramide HCl (Metoclopramide Hcl 10 Mg/2 Ml Vial) 5 mg IVPUSH Q4H PRN PRN Reason: nausea/vomiting Last Admin: 09/11/22 12:38 Dose: 5 mg Documented By: TAMMY Morphine Sulfate (Morphine Sulfate 4 Mg/Ml Cartridge) 4 mg IVPUSH Q4H PRN; Protocol PRN Reason: Pain, Severe (Pain Scale 7-10) Last Admin: 09/11/22 20:35 Dose: 4 mg Documented By: LAKESHA Ondansetron HCl (Ondansetron Hcl 4 Mg/2 Ml Vial) 4 mg IVPUSH Q8H PRN PRN Reason: Nausea and Vomiting Last Admin: 09/11/22 00:07 Dose: 4 mg Documented By: NEHAL Pharmacy Consult (Consult Rx Perform Med Rec) 1 each MISCELLANE ONCE PRN PRN Reason: Consult order Sodium Chloride (0.9 % Sodium Chloride Flush 3 Ml [facility]ringe) [facility] Last Admin: 09/11/22 20:35 Dose: 3 ml Documented By: LAKESHA Labs CBC & Chem 7: 09/10/22 06:03 09/11/22 06:30 Labs: Laboratory Results - last 24 hr 09/11/22 09/11/22 09/11/22 10:56 16:08 20:23 POC Glucose 168 H 111 278 H 09/12/22 07:19 POC Glucose 148 H Assessment and Plan (1) COVID-19: Status: Acute Plan d#4 42yo M with cerebral palsy, DM presenting with UGALDE/N/V/diarrhea, found to have GRAY and mid DKA # Covid-19 - not hypoxic- no steroids. remdesivir d#3/3 given risk factor for severe disease of DM # DKA - resolved, continue insulin SQ # GRAY - resolved with IV fluids # hypoK - replete, recheck BMP in AM # vomiting - ?DM gastroparesis vs THC-related CVS - perform gastric emptying study today - prn ondansetron + prn metoclopramide # ?colitis - likely Covid vs. other virus- brother with similar symptoms. outpt C-scope per GI # DM2, A1c 11.5 - correction-dose lispro # VTE ppx - LMWH In my clinical judgment, the patient requires continued inpatient hospitalization for the following reasons: N/V, DKA, GRAY Quality Stroke Does the patient have a stroke diagnosis?: No VTE Prior VTE?: No VTE Risk Level:: Medical - moderate - high VTE Device Contraindication: N/A - Device Ordered VTE Drug Contraindication: Treatment Not Indicated
[2022-09-12] MEDS: 0.9 % Sodium Chloride Flush 3 ML SYRINGE IVFLUSH (10:22)
[2022-09-12] MEDS: Famotidine/PF 20 MG/2 ML VIAL IVPUSH ×2 (10:22→22:21)
[2022-09-12 11:11] LABS: Glucose, Whole Blood 229 mg/dL (60-115)
[2022-09-12] MEDS: Morphine Sulfate 4 MG/ML CARTRIDGE IVPUSH ×3 (13:07→22:17)
[2022-09-12] MEDS: Acetaminophen 325 MG TABLET 650 MG PO (13:07)
--- NOTE | 2022-09-12 13:30 | PC.NURSE ---
Patient down to N/M for procedure via bed with transportation program director at this time.
--- NOTE | 2022-09-12 18:18 | PC.NURSE ---
pt returned from nuclear med procedure at this time
[2022-09-12] MEDS: Metoclopramide HCl 10 MG/2 ML VIAL 5 MG IVPUSH (18:19)
[2022-09-12] MEDS: Enoxaparin Sodium 40 MG/0.4 ML SYRINGE SUBCUT (18:20)
[2022-09-12 20:51] LABS: Glucose, Whole Blood 259 mg/dL (60-115)
[2022-09-12] MEDS: Insulin Lispro 100 UNIT/ML 3 ML VIAL SUBCUT (22:21)
[2022-09-12] MEDS: Remdesivir 100 MG in 0.9 % Sodium Chloride 230 ML 115 MG IV (22:27)
[2022-09-13] VITALS: BP 166/91; PULSE 70; RESP 16; TEMP 36.6; O2SAT 99
[2022-09-13] MEDS: 0.9 % Sodium Chloride Flush 3 ML SYRINGE IVFLUSH ×4 (01:49→20:51)
[2022-09-13] MEDS: Morphine Sulfate 4 MG/ML CARTRIDGE IVPUSH ×5 (02:55→22:20)
[2022-09-13] MEDS: Lactated Ringers 1,000 ML 80 ML IVCONT (04:00)
[2022-09-13] MEDS: ondansetron HCL 4 MG/2 ML VIAL IVPUSH ×2 (06:48→21:05)
[2022-09-13 07:35] LABS: Blood Urea Nitrogen 10 mg/dL (9-16); Calcium 8.4 mg/dL (8.4-10.2); Creatinine Clr Calc Pharmacy 103.8; Estimated Glomerular Filt Rate > 60; Glucose Random 140 mg/dL (60-115); Magnesium 1.9 mg/dL (1.6-2.6); Phosphorus 2.6 mg/dL (2.7-4.5)
[2022-09-13 07:45] LABS: Anion Gap 20 (12-20); Carbon Dioxide 28 mmol/L (22-29); Chloride 95 mmol/L (96-108); Sodium 140 mmol/L (135-145)
[2022-09-13 07:53] LABS: Glucose, Whole Blood 171 mg/dL (60-115)
[2022-09-13 08:00] VITALS: BP 147/76; PULSE 67; RESP 20; TEMP 36.2; O2SAT 99
[2022-09-13] MEDS: Famotidine/PF 20 MG/2 ML VIAL IVPUSH ×2 (08:10→20:51)
[2022-09-13] MEDS: Insulin Lispro 100 UNIT/ML 3 ML VIAL SUBCUT ×2 (08:10→20:50)
--- NOTE | 2022-09-13 10:17 | P.PNIM_ITS ---
Subjective Subjective Date of Service: 09/13/22 Interval History: still c/o abdominal pain, Review of Systems seems pretty comfortable, no n/v Physical Exam Vital Signs: Vital Signs: Last Vital Signs Temp 97.1 F 09/13/22 08:00 Pulse 67 09/13/22 08:00 Resp 20 09/13/22 08:00 BP 147/76 H 09/13/22 08:00 Pulse Ox 99 09/13/22 08:00 O2 Del Method 09/13/22 08:00 BMI result Body Mass Index 18.0 Const: Other: General awake alert x3, resting comfortably in no acute distress. Neck supple no JVD. CVS regular rate rhythm, Respiratory lungs clear to auscultation, no respiratory distress, no wheeze, no rhonchi. Gastrointestinal abdomen soft, mid abdominal tenderness with palpation, nondistended, bowel sounds audible, no guarding , no rigidity. Extremities no edema/lower extremity muscular atrophy. Neuro nonfocal , moving all 4 extremity speech clear. Skin no rash Objective Data Active Medications Acetaminophen (Acetaminophen 325 Mg Tablet) 650 mg PO Q6H PRN PRN Reason: Pain, Mild (Pain Scale 1-3) Last Admin: 09/12/22 13:07 Dose: 650 mg Documented By: COLBY Dextrose (Dextrose 50 % 25 Gm/50 Ml Syringe) 25 gm IVPUSH Q15M PRN; Protocol PRN Reason: per Hypoglycemia Standing Ord. Enoxaparin Sodium (Enoxaparin Sodium 40 Mg/0.4 Ml Syringe) 40 mg SUBCUT Q24H [facility] Last Admin: 09/12/22 18:20 Dose: 40 mg Documented By: COLBY Famotidine (Famotidine/Pf 20 Mg/2 Ml Vial) 20 mg IVPUSH BID [facility] Last Admin: 09/13/22 08:10 Dose: 20 mg Documented By: DANIE Glucose (Glucose Gel 15 Gm Gel..Gram.) 15 gm PO Q15M PRN; Protocol PRN Reason: per Hypoglycemia Standing Ord. Lactated Ringer's (Lr) 1,000 mls @ 80 mls/hr IVCONT .[id number] [facility] Last Admin: 09/13/22 04:00 Dose: 80 mls/hr Documented By: NOLAN Insulin Human Lispro (Insulin Lispro 100 Unit/Ml 3 Ml Vial) 0 unit SUBCUT QIDACHS [facility]; Protocol Last Admin: 09/13/22 08:10 Dose: 2 unit Documented By: DANIE Metoclopramide HCl (Metoclopramide Hcl 10 Mg/2 Ml Vial) 5 mg IVPUSH Q4H PRN PRN Reason: nausea/vomiting Last Admin: 09/12/22 18:19 Dose: 5 mg Documented By: COLBY Morphine Sulfate (Morphine Sulfate 4 Mg/Ml Cartridge) 4 mg IVPUSH Q4H PRN; Protocol PRN Reason: Pain, Severe (Pain Scale 7-10) Last Admin: 09/13/22 08:11 Dose: 4 mg Documented By: DANIE Ondansetron HCl (Ondansetron Hcl 4 Mg/2 Ml Vial) 4 mg IVPUSH Q8H PRN PRN Reason: Nausea and Vomiting Last Admin: 09/13/22 06:48 Dose: 4 mg Documented By: NOLAN Pharmacy Consult (Consult Rx Perform Med Rec) 1 each MISCELLANE ONCE PRN PRN Reason: Consult order Sodium Chloride (0.9 % Sodium Chloride Flush 3 Ml Syringe) 3 ml IVFLUSH [facility] Last Admin: 09/13/22 08:10 Dose: 3 ml Documented By: DANIE Labs CBC & Chem 7: 09/10/22 06:03 09/13/22 06:42 Labs: Laboratory Results - last 24 hr 09/12/22 09/12/22 09/13/22 11:08 19:57 06:42 Anion Gap 20 Estim Creat Clear Calc 103.8 Estimated GFR > 60 POC Glucose 229 H 259 H Random Glucose 140 H Calcium 8.4 Phosphorus 2.6 L Magnesium 1.9 09/13/22 07:49 Anion Gap Estim Creat Clear Calc Estimated GFR POC Glucose 171 H Random Glucose Calcium Phosphorus Magnesium Assessment and Plan (1) COVID-19: Status: Acute Plan d#5 42yo M with cerebral palsy, DM presenting with UGALDE/N/V/diarrhea, found to have GRAY and mid DKA # Covid-19 - not hypoxic- no steroids. remdesivir for 3 days. given risk factor for severe disease of DM # DKA - resolved, continue insulin SQ # GRAY - resolved with IV fluids # hypoK--still low - replete, recheck BMP in AM # vomiting - ?DM gastroparesis vs THC-related CVS - perform gastric emptying study on 09/12: Abnormal delayed gastric emptying study, appears similar to prior study done on 02/02/2019. - prn Zofran + prn metoclopramide -advance diet # ?colitis - likely Covid vs. other virus- brother with similar symptoms. outpt C-scope per GI # DM2, A1c 11.5 - correction-dose lispro # VTE ppx - LMWH In my clinical judgment, the patient requires continued inpatient hospitalization for the following reasons: N/V, DKA, GRAY, NPO Quality Stroke Does the patient have a stroke diagnosis?: No VTE Prior VTE?: No VTE Risk Level:: Medical - moderate - high VTE Device Contraindication: N/A - Device Ordered VTE Drug Contraindication: Treatment Not Indicated
[2022-09-13 11:46] LABS: Glucose, Whole Blood 88 mg/dL (60-115)
--- NOTE | 2022-09-13 14:50 | MHC.CLN ---
F/U PT IS MODERATELY MALNOURISHED SEE FULL CLINICAL NUTRITION ASSESSMENT DATED 09/11/22 PO INTAKE POOR DIET RX: 1800DM-APPROPRIATE RECOMMEND ADDING ENSURE CLEAR TID TO INCREASE KCALS SUPP TO PROVIDE 720KCALS, 24G PROTEIN MONITOR PO INTAKE CLOSELY
[2022-09-13 15:56] VITALS: BP 139/68; PULSE 73; RESP 20; TEMP 36.7; O2SAT 98
--- NOTE | 2022-09-13 16:26 | MHC.CM.PN ---
Male 42 DX GRAY DKA No discharge today. Patient has been NPO. MD plan to start diet today. Diet will be advanced once tolerated patient may discharge. DP resume [facility] services. Family will provide transportation.
[2022-09-13 16:48] LABS: Glucose, Whole Blood 102 mg/dL (60-115)
[2022-09-13] MEDS: Enoxaparin Sodium 40 MG/0.4 ML SYRINGE SUBCUT (18:20)
[2022-09-13 20:19] LABS: Glucose, Whole Blood 240 mg/dL (60-115)
[2022-09-13] MEDS: KCl 20 mEq in 0.45% Sod 20 MEQ/1,000 ML IV.SOLN 100 MEQ IVCONT (22:11)
[2022-09-13 22:20] VITALS: RESP 18
[2022-09-13 23:13] VITALS: BP 129/81; PULSE 69; RESP 18; TEMP 36.3; O2SAT 98
[2022-09-14 08:00] VITALS: BP 123/61; PULSE 76; RESP 12; TEMP 36.4; O2SAT 100
[2022-09-14 08:13] LABS: Glucose, Whole Blood 117 mg/dL (60-115)
[2022-09-14 08:46] LABS: Blood Urea Nitrogen 11 mg/dL (9-16); Calcium 8.3 mg/dL (8.4-10.2); Creatinine Clr Calc Pharmacy 95.2; Estimated Glomerular Filt Rate > 60; Glucose Random 116 mg/dL (60-115); Phosphorus 3.3 mg/dL (2.7-4.5)
[2022-09-14 09:11] LABS: Anion Gap 16 (12-20); Carbon Dioxide 32 mmol/L (22-29); Chloride 95 mmol/L (96-108); Potassium 2.6 mmol/L (3.3-5.1); Sodium 140 mmol/L (135-145)
[2022-09-14] MEDS: Metoclopramide HCl 5 MG TABLET PO ×3 (10:19→16:49)
[2022-09-14] MEDS: 0.9 % Sodium Chloride Flush 3 ML SYRINGE IVFLUSH ×2 (10:19→20:21)
[2022-09-14] MEDS: Famotidine 20 MG TABLET PO ×2 (10:19→20:21)
[2022-09-14] MEDS: Potassium Chloride ER 20 MEQ TAB.ER.PRT 40 MEQ PO (11:24)
[2022-09-14] MEDS: Potassium Chloride/H20 10 MEQ/100 ML PIGGYBACK 100 MEQ IV ×4 (11:26→16:48)
[2022-09-14 11:34] LABS: Glucose, Whole Blood 291 mg/dL (60-115)
--- NOTE | 2022-09-14 11:39 | HO.PM.IMPN ---
Subjective Subjective Date of Service: 09/14/22 Interval History: N/V/abd pain improving though not eating much K 2.6 no fever or cough Review of Systems Review of Systems: Yes all other systems are reviewed and are negative Physical Exam Vital Signs: Vital Signs: Last Vital Signs Temp 97.5 F 09/14/22 08:00 Pulse 76 09/14/22 08:00 Resp 12 09/14/22 08:00 BP 123/61 09/14/22 08:00 Pulse Ox 100 09/14/22 08:00 O2 Del Method 09/14/22 08:00 BMI result Body Mass Index 18.0 Gen: in no acute distress HEENT: sclera anicteric, moist mucus membranes Neck: supple Lungs: clear to auscultation bilaterally Heart: regular rate and rhythm, no murmurs Abd: soft, non-tender, non-distended Ext: no edema Skin: warm/well-perfused Neuro: alert and oriented x3, no focal findings Psych: appropriate affect Objective Data Active Medications Acetaminophen (Acetaminophen 325 Mg Tablet) 650 mg PO Q6H PRN PRN Reason: Pain, Mild (Pain Scale 1-3) Last Admin: 09/12/22 13:07 Dose: 650 mg Documented By: COLBY Dextrose (Dextrose 50 % 25 Gm/50 Ml Syringe) 25 gm IVPUSH Q15M PRN; Protocol PRN Reason: per Hypoglycemia Standing Ord. Enoxaparin Sodium (Enoxaparin Sodium 40 Mg/0.4 Ml Syringe) 40 mg SUBCUT Q24H [facility] Last Admin: 09/13/22 18:20 Dose: 40 mg Documented By: DANIE Famotidine (Famotidine 20 Mg Tablet) 20 mg PO BID [facility] Last Admin: 09/14/22 10:19 Dose: 20 mg Documented By: TAMMY Glucose (Glucose Gel 15 Gm Gel..Gram.) 15 gm PO Q15M PRN; Protocol PRN Reason: per Hypoglycemia Standing Ord. Potassium Chloride (Potassium Chloride/H20) 10 meq in 100 mls @ 100 mls/hr IV Q1H [facility] Stop: 09/14/22 14:29 Last Admin: 09/14/22 11:26 Dose: 100 mls/hr Documented By: TAMMY Insulin Human Lispro (Insulin Lispro 100 Unit/Ml 3 Ml Vial) 0 unit SUBCUT QIDACHS [facility]; Protocol Last Admin: 09/14/22 09:59 Dose: Not Given Documented By: TAMMY Non-Admin Reason: No Insulin Coverage Metoclopramide HCl (Metoclopramide Hcl 5 Mg Tablet) 5 mg PO TIDAC [facility] Last Admin: 09/14/22 10:19 Dose: 5 mg Documented By: TAMMY Morphine Sulfate (Morphine Sulfate 4 Mg/Ml Cartridge) 4 mg IVPUSH Q4H PRN; Protocol PRN Reason: Pain, Severe (Pain Scale 7-10) Last Admin: 09/13/22 22:20 Dose: 4 mg Documented By: LUIS Ondansetron HCl (Ondansetron Hcl 4 Mg/2 Ml Vial) 4 mg IVPUSH Q8H PRN PRN Reason: Nausea and Vomiting Last Admin: 09/13/22 21:05 Dose: 4 mg Documented By: LUIS Pharmacy Consult (Consult Rx Perform Med Rec) 1 each MISCELLANE ONCE PRN PRN Reason: Consult order Sodium Chloride (0.9 % Sodium Chloride Flush 3 Ml Syringe) 3 ml IVFLUSH QSHIFT [facility] Last Admin: 09/14/22 10:19 Dose: 3 ml Documented By: TAMMY Labs CBC & Chem 7: 09/10/22 06:03 09/14/22 07:59 Labs: Laboratory Results - last 24 hr 09/13/22 09/13/22 09/13/22 11:42 16:44 20:12 Anion Gap Estim Creat Clear Calc Estimated GFR POC Glucose 88 102 240 H Random Glucose Calcium Phosphorus Magnesium 09/14/22 09/14/22 09/14/22 07:59 08:05 11:19 Anion Gap 16 Estim Creat Clear Calc 95.2 Estimated GFR > 60 POC Glucose 117 H 291 H Random Glucose 116 H Calcium 8.3 L Phosphorus 3.3 Magnesium 2.0 Assessment and Plan (1) COVID-19: Status: Acute Plan d#6 42yo M with cerebral palsy, DM presenting with UGALDE/N/V/diarrhea, found to have GRAY and mid DKA # DM gastroparesis - GES positive 09/12/22. start standing metoclopramide tidac. - also may have THC-related CVS; counseled to avoid use # hypoK, recurrent - replete IV + PO, recheck BMP in AM # Covid-19 - not hypoxic- no steroids. given remdesivir for 3 days given risk factor for severe disease of DM # DKA - resolved, continue insulin SQ # GRAY - resolved with IV fluids # ?colitis - likely Covid vs. other virus- brother with similar symptoms. outpt C-scope per GI # DM2, A1c 11.5 - correction-dose lispro; on GPZ at home; did not tolerate MTF in past due to vomiting # VTE ppx - LMWH In my clinical judgment, the patient requires continued inpatient hospitalization for the following reasons: hypok Quality Stroke Does the patient have a stroke diagnosis?: No VTE Prior VTE?: No VTE Risk Level:: Medical - moderate - high VTE Device Contraindication: N/A - Device Ordered VTE Drug Contraindication: Treatment Not Indicated
[2022-09-14] MEDS: Insulin Lispro 100 UNIT/ML 3 ML VIAL SUBCUT ×3 (12:03→20:21)
[2022-09-14 15:38] VITALS: BP 125/83; PULSE 78; RESP 16; TEMP 36.3; O2SAT 99
[2022-09-14 16:31] LABS: Glucose, Whole Blood 180 mg/dL (60-115)
[2022-09-14] MEDS: Enoxaparin Sodium 40 MG/0.4 ML SYRINGE SUBCUT (16:49)
[2022-09-14 19:23] VITALS: BP 123/86; PULSE 84; RESP 16; TEMP 36.9; O2SAT 99
[2022-09-14 20:18] LABS: Glucose, Whole Blood 231 mg/dL (60-115)
[2022-09-14] MEDS: Acetaminophen 325 MG TABLET 650 MG PO (20:24)
[2022-09-15] VITALS: BP 123/68; PULSE 68; RESP 14; TEMP 37.1; O2SAT 98
[2022-09-15 03:02] VITALS: BP 111/71; PULSE 57; RESP 14; TEMP 36.8; O2SAT 98
[2022-09-15 07:15] VITALS: BP 120/70; PULSE 62; RESP 20; TEMP 36.8; O2SAT 99
[2022-09-15 07:45] LABS: Glucose, Whole Blood 131 mg/dL (60-115)
[2022-09-15] MEDS: Famotidine 20 MG TABLET PO (08:03)
[2022-09-15] MEDS: Metoclopramide HCl 5 MG TABLET PO ×2 (08:03→12:14)
[2022-09-15] MEDS: 0.9 % Sodium Chloride Flush 3 ML SYRINGE IVFLUSH (08:03)
[2022-09-15 08:05] LABS: Anion Gap 16 (12-20); Blood Urea Nitrogen 15 mg/dL (9-16); Calcium 8.5 mg/dL (8.4-10.2); Carbon Dioxide 31 mmol/L (22-29); Chloride 97 mmol/L (96-108); Creatinine Clr Calc Pharmacy 84.8; Estimated Glomerular Filt Rate > 60; Glucose Random 143 mg/dL (60-115); Potassium 3.7 mmol/L (3.3-5.1); Sodium 140 mmol/L (135-145)
--- NOTE | 2022-09-15 10:02 | P.DS_ITS ---
DS: Providers Provider Date of Service: 09/15/22 Date of admission: 09/09/22 18:36 Date of discharge: 09/15/22 Primary care physician: Isabell Young MD Consults: 09/10/22 08:58 Consult to Gastroenterology Routine Consulting Provider: [facility] Reason for consultation: circumferential wall thickening of sigmoid colon no nspecific with differen DS: Diagnosis Discharge Diagnosis (1) COVID-19: Status: Acute (2) Gastroparesis: Status: Acute (3) Hypokalemia: Status: Acute (4) Nausea & vomiting: Status: Acute (5) Cannabinoid hyperemesis syndrome: Status: Acute (6) 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), managed as type 2: Status: Acute (7) Acute kidney injury: Status: Acute (8) Diabetic keto-acidosis: Status: Acute (9) Colitis: Status: Acute DS: Summary Hospital Course Hospital Course: from admission History and Physical by hospitalist Mani Valdes MD, 09/09/22: 42-year-old gentleman with past medical history significant for cerebral palsy, history of diabetes mellitus type 2, history of gastroparesis presented to [facility] with 3 day history of headache that he described as a tight band pressure-like around his entire head, constant 10 of 10 associated with nausea vomiting and diarrhea patient has been feeling weak at home therefore came to the emergency room patient brother also had similar symptoms of nausea, vomiting ,abdominal discomfort and diarrhea as per patient due to other reasons of not tolerant to meat, in the emergency room patient noted to have normal CBC, wean as pH 7.31 and anion gap of 32 creatinine of 1.69 and a blood sugar of 461 patient treated in the emergency room with IV fluids regular insulin, blood sugar improved to 200 range, renal failure resolved and anion gap closed patient continued to have dry heaves and developed mid abdominal dis comfort while in hospital, therefore CT abdomen was obtained that showed circumferential wall thickening of sigmoid colon nonspecific with differential of infection or inflammatory condition possibly subclinical or chronic colitis, neoplastic process less likely, GI consult recommended if patient's symptoms not improved for possible colonoscopy, since patient continue to have dry heaves, abdominal pain, unable to keep food down, with persistent ketones in urine he is being admitted to [facility].? Patient admits to smoking marijuana few times per night for sleep. This 42yo M with cerebral palsy, DM presenting with UGALDE/N/V/diarrhea was found to have GRAY and mild DKA and Covid-19 infection with few symptoms and no hypoxia. Hospital course by problem: # DM gastroparesis - treated with IV fluids and antiemetics initially - NM gastric emptying study positive 09/12/22; started standing metoclopramide tidac and discharged on this medication - also may have THC-related cannabinoid hyperemesis; counseled to avoid use # GRAY, prerenal - resolved with IV fluid hydration # hypoK - repleted; likely due to GI loss; advised to recheck BMP on 09/19 or 09/20 # Covid-19 - not hypoxic, so no steroids indicated.? given remdesivir for 3 days given risk factor for severe disease of DM. completed 5 days of isolation in the hospital and should wear mask for another 5 days. # DKA # uncontrolled DM2, A1c 11.5 - resolved, was managed with subcutaneous insulin. glipizide increased to 5 mg bid. did not tolerate MTF in past due to vomiting. needs outpatient Endocrinology management. # ?colitis - likely Covid vs. other virus. GI consulted; consider outpt colonoscopy. Time Spent with Patient Time attestation: Total time spent providing and/or coordinating discharge services: Discharge coordination time: Greater than 30 minutes Quality: Safe Use of Opioids Does Pt have an Active Cancer Diagnosis on the Problem List?: No Quality: Stroke Does the patient have a stroke diagnosis?: No Physical Exam Vital Signs: Vital Signs: Last Vital Signs Temp 98.2 F 09/15/22 07:15 Pulse 62 09/15/22 07:15 Resp 20 09/15/22 07:15 BP 120/70 09/15/22 07:15 Pulse Ox 99 09/15/22 07:15 O2 Del Method 09/15/22 07:15 BMI result Body Mass Index 18.0 Gen: in no acute distress HEENT: sclera anicteric, moist mucus membranes Neck: supple Lungs: clear to auscultation bilaterally Heart: regular rate and rhythm, no murmurs Abd: soft, non-tender, non-distended Ext: no edema Skin: warm/well-perfused Neuro: alert and oriented x3 Psych: restricted affect DS: Data Data Completed and Pending Completed studies during hospitalization [Text1]: Laboratory Results WBC 6.4 X10*3/uL (4.8-10.8) 09/10/22 06:03 RBC 4.50 X10*6/uL (4.60-5.80) L 09/10/22 06:03 Hgb 13.5 g/dl (14.0-18.0) L 09/10/22 06:03 Hct 39.0 % (42.0-52.0) L 09/10/22 06:03 MCV 86.7 fL (80.0-98.0) 09/10/22 06:03 MCH 30.0 pg (27.0-33.0) 09/10/22 06:03 MCHC 34.6 g/dl (31.0-36.0) 09/10/22 06:03 RDW 11.8 % (11.0-16.0) 09/10/22 06:03 Plt Count 167 X10*3/uL (160-400) 09/10/22 06:03 MPV 9.3 fL (9.4-12.4) L 09/10/22 06:03 Immature Gran % (Auto) 0.2 % (0.0-0.4) 09/10/22 06:03 Neut % (Auto) 71.9 % (45-73) 09/10/22 06:03 Lymph % (Auto) 19.3 % (20-40) L 09/10/22 06:03 [place] % (Auto) 8.6 % (2-11) 09/10/22 06:03 Eos % (Auto) 0.0 % (0-4) 09/10/22 06:03 Baso % (Auto) 0.0 % (0-2) 09/10/22 06:03 Lymph # (Auto) 1.2 X10*3/uL (1.2-4.9) 09/10/22 06:03 [place] # (Auto) 0.6 X10*3/uL (0.1-1.2) 09/10/22 06:03 Eos # (Auto) 0.0 X10*3/uL (0.0-0.4) 09/10/22 06:03 Baso # (Auto) 0.0 X10*3/uL (0.0-0.2) 09/10/22 06:03 Abs Immat Gran (auto) 0.01 X10*3/uL (0.00-0.03) 09/10/22 06:03 Absolute Neuts (auto) 4.6 x10*3/uL (2.0-8.3) 09/10/22 06:03 Absolute Nucleated RBC 0.000 X10*3/uL (0.0-0.012) 09/10/22 06:03 Nucleated RBC % (auto) 0.0 /100WBC (0.0-0.2) 09/10/22 06:03 PT 14.8 SEC (10.0-13.1) H 09/09/22 01:28 INR 1.3 (0.9-1.1) H 09/09/22 01:28 APTT 27.7 SEC (26.0-36.4) 09/09/22 01:28 VBG pH 7.31 (7.32-7.43) L 09/09/22 06:52 VBG pCO2 36 mmHg 09/09/22 06:52 VBG pO2 40 mmHg 09/09/22 06:52 VBG HCO3 18 mmol/L (22-26) L 09/09/22 06:52 VBG O2 Saturation 59.0 % 09/09/22 06:52 VBG Base Excess -6.4 mmol/L 09/09/22 06:52 Sodium 140 mmol/L (135-145) 09/15/22 07:09 Potassium 3.7 mmol/L (3.3-5.1) D 09/15/22 07:09 Chloride 97 mmol/L (96-108) 09/15/22 07:09 Carbon Dioxide 31 mmol/L (22-29) H 09/15/22 07:09 Anion Gap 16 (12-20) 09/15/22 07:09 BUN 15 mg/dL (9-16) 09/15/22 07:09 Creatinine 0.82 mg/dL (0.5-1.4) 09/15/22 07:09 Estim Creat Clear Calc 84.8 09/15/22 07:09 Estimated GFR > 60 09/15/22 07:09 POC Glucose 131 mg/dL (60-115) H 09/15/22 07:13 Random Glucose 143 mg/dL (60-115) H 09/15/22 07:09 Estimat Average Glucose 283 mg/dL 09/10/22 06:03 Hemoglobin A1c % 11.5 % 09/10/22 06:03 Calcium 8.5 mg/dL (8.4-10.2) 09/15/22 07:09 Phosphorus 3.3 mg/dL (2.7-4.5) 09/14/22 07:59 Magnesium 2.0 mg/dL (1.6-2.6) 09/14/22 07:59 Total Bilirubin 0.6 mg/dL (0.0-1.0) 09/09/22 16:12 Direct Bilirubin 0.2 mg/dL (0.0-0.5) 09/09/22 09:47 AST 21 U/L (5-37) 09/09/22 16:12 ALT 23 U/L (0-40) 09/09/22 16:12 Alkaline Phosphatase 60 U/L (39-117) 09/09/22 16:12 C-Reactive Protein 0.38 mg/dL (< or = 0.50) 09/11/22 06:30 Total Protein 6.1 g/dL (6.5-8.0) L 09/09/22 16:12 Albumin 3.8 g/dL (3.5-5.0) 09/09/22 16:12 Lipase 13 U/L (8-78) 09/09/22 09:47 Urine Color Yellow 09/09/22 06:50 Urine Appearance Cloudy 09/09/22 06:50 Urine pH 5.0 (5.0-9.0) 09/09/22 06:50 Ur Specific [place] >= 1.030 (1.005-1.025) H 09/09/22 06:50 Urine Protein 30 (1+) mg/dL (Neg-Trace) H 09/09/22 06:50 Urine Glucose (UA) >=1000 mg/dL (Negative) H 09/09/22 06:50 Urine Ketones >=160 mg/dL (Negative) 09/09/22 06:50 Urine Blood Moderate (2+) (Negative) H 09/09/22 06:50 Urine Nitrite Negative (Negative) 09/09/22 06:50 Ur Leukocyte Esterase Negative (Negative) 09/09/22 06:50 Urine RBC 6-10 /HPF (0-2) H 09/09/22 06:50 Urine WBC 0-5 /HPF (0-5) 09/09/22 06:50 Ur Squamous Epith Cells 0-2 /HPF (0-2) 09/09/22 06:50 Urine Bacteria None Seen (None Seen) 09/09/22 06:50 Hyaline Casts 0-2 /LPF (0-2) 09/09/22 06:50 Acetone, Qual Moderate (Negative) H 09/09/22 16:12 COVID-19 (ANIKA) Positive (Negative) A 09/10/22 01:07 COVID-19 Clin Com See Note 09/10/22 01:07 Impressions Abdomen/Pelvis CT 09/09/22 14:39 IMPRESSION: 1. Segment of the sigmoid colon exhibits circumferential wall thickening nonspecific, differential would include most commonly infection and inflammatory condition, possibly subclinical or chronic colitis, neoplastic process less likely present in this diffuse fashion however not entirely excluded, would recommend GI consultation, if patient remain symptomatic may consider follow-up colonoscopy. 2. Redemonstration of bilateral nonobstructing kidney stones, no hydronephrosis. 3. Redemonstration of multiple bilateral renal cysts, there are few hemorrhagic cysts, the largest on the right measure up to 3.9 cm Bosniak class I, no solid renal lesion found. 4. No CT evidence of bowel obstruction. No free air or fluid. No adenopathy. Gastric Emptying Nuclear Medicine 09/12/22 17:45 IMPRESSION: Abnormal delayed gastric emptying study, appears similar to prior study done on 02/02/2019. Ensure-plus Brand supplement was used instead of radio-labeled eggs because of the patient's intolerance to eggs. This supplement has been shown to closely mimic gastric emptying of labeled eggs. Discharge Plan Discharge Anticipated Discharge Date/Time: 09/15/22 09:57 Patient Disposition: Home, Self-Care Discharge Diagnosis: nausea/vomiting due to gastroparesis and possibly cannabinoid hyperemesis Covid-19 infection uncontrolled diabetes with DKA colitis Referrals: Isabell Blue MD [Primary Care Provider] - 1 Week Jesse Cano MD [Physician] - 1 Month Maggie Qiu DO [Physician] - 1 Week Discharge Medications: New metoclopramide HCl 5 mg Tablet 5 mg PO TIDAC Qty: 90 0RF glipizide 5 mg tablet 5 mg PO BID Qty: 60 0RF Continued (DME) blood-glucose meter [FreeStyle Lite Meter] Kit See Rx Instructions .Route Qty: 1 0RF Rx Instructions: As directed (DME) crutch tips 05/17 See Rx Instructions .Route .MEDSUPPLY Qty: 2 0RF Rx Instructions: As directed omeprazole 40 mg capsule,delayed release(DR/EC) 40 mg PO BID Qty: 90 1RF (DME) ankle wraps See Rx Instructions .Route .MEDSUPPLY Qty: 1 0RF Rx Instructions: As directed (DME) wheelchair electric See Rx Instructions .Route .MEDSUPPLY Qty: 1 0RF Rx Instructions: As directed (DME) FreeStyle Test Strip See Rx Instructions .Route Qty: 50 11RF Rx Instructions: Use 1 test strip once a day extra depth diabetic shoes with 3 pair custom .Route Rx Instructions: .Routeheat-molded multi-density innersoles Discontinued glipizide 5 mg tablet 5 mg PO DAILY 30 Days Qty: 90 1RF Discharge Orders: Discharge Order (Routine); Ordered 09/15/22 Ordered By: Any Mckeon Diet: Diabetic diet Activity on Discharge: As tolerated Stand Alone Forms: Patient Portal Discharge page Other Ambulatory Orders: Basic Metabolic Panel (Routine) Timeframe: [id number] Facility: [facility] - Location: Laboratory Ordered By: Any Mckeon Care Plan Goals: control of nausea/vomiting prevention of severe Covid-19 control of blood sugar Health Concerns: nausea/vomiting due to gastroparesis and possibly cannabinoid hyperemesis Covid-19 infection uncontrolled diabetes with DKA colitis Plan of Treatment: take metoclopramide 5 mg 30 minutes before each meal; avoid cannabis; recheck BMP 09/19 or 09/20 completed 5 days of isolation; wear mask for another 5 days diabetic diet; increase glipizide to 5 mg twice daily; outpatient Endocrinology referral consider outpatient GI evaluation Please follow up with your primary care doctor within 1 week. Return to the hospital if you experience recurrent or worsening symptoms. Assessment: See Discharge Summary.
--- NOTE | 2022-09-15 10:10 | MHC.CM.PN ---
Patient has been medically cleared for dc to home today, self care. CM spoke with Patient over the phone @ [phone] (Covid positive)and he does not want a copy of the IMM. Patient is in agreement with the dc plan.
[2022-09-15 11:13] VITALS: BP 109/70; PULSE 72; RESP 18; TEMP 36.8; O2SAT 98
[2022-09-15 11:20] LABS: Glucose, Whole Blood 225 mg/dL (60-115)
[2022-09-15] MEDS: Insulin Lispro 100 UNIT/ML 3 ML VIAL SUBCUT (12:14)
== END 2022-09-15 13:35 | disposition home or self-care (01) | DRG 177 ==
LOC: HO.ED 09-09 09:26 → HO.EDOVER 09-09 18:48 → HO.IMC 09-10 18:36
PROVIDERS: Emergency Medicine Emergency Medical Services; Internal Medicine; Admitting Provider Hospitalist; Emergency Provider Student in an Organized Health Care Education/Training Program; PCP Internal Medicine; Visit Provider Family Medicine
DX: U07.1 COVID-19 (principal); E11.10 Type 2 diabetes mellitus with ketoacidosis without coma; N17.9 Acute kidney failure, unspecified; A08.39 Other viral enteritis; E11.43 Type 2 diabetes mellitus with diabetic autonomic (poly)neuropathy; K21.9 Gastro-esophageal reflux disease without esophagitis; E87.6 Hypokalemia; E86.0 Dehydration; F32.A Depression, unspecified; R11.2 Nausea with vomiting, unspecified; F12.10 Cannabis abuse, uncomplicated; K31.84 Gastroparesis; G80.9 Cerebral palsy, unspecified; N40.0 Benign prostatic hyperplasia without lower urinary tract symptoms; Z87.891 Personal history of nicotine dependence; Z79.84 Long term (current) use of oral hypoglycemic drugs; Z79.899 Other long term (current) drug therapy
CPT/HCPCS: 36415; 74177; 78264; 80048; 80053; 80076; 81001; 81003; 82009; 82803; 82947; 83036; 83690; 83735; 84100; 85025; 85610; 85730; 86140; 87635; 99285; A9541; J0248; J1200; J1650; J1885; J2270; J2405; J2765; Q9967

== ENCOUNTER 2022-09-20 10:09 | Outpatient (REF) | payer OTHER, SELFPAY ==
[2022-09-20 11:26] LABS: Anion Gap 19 (12-20); Blood Urea Nitrogen 16 mg/dL (9-16); Calcium 9.7 mg/dL (8.4-10.2); Carbon Dioxide 28 mmol/L (22-29); Chloride 97 mmol/L (96-108); Cholesterol 173 mg/dL; Estimated Glomerular Filt Rate > 60; Glucose Random 338 mg/dL (60-115); HDL Cholesterol 50 mg/dL; LDL Cholesterol Calculated 105 mg/dl; Potassium 4.6 mmol/L (3.3-5.1); Sodium 139 mmol/L (135-145); Triglycerides 91 mg/dL
[2022-09-20 12:45] LABS: Vitamin D 25-OH Total 13.5 ng/mL (>30)
[2022-09-20 15:26] LABS: Creatinine Urine 38.84 mg/dL; Microalbum/Creatinine Ratio Ur 20.5 ug/mg cr
== END 2022-09-20 10:10 | disposition home or self-care (01) ==
LOC: HO.LAB 10:09
PROVIDERS: Family Medicine; PCP Internal Medicine; Visit Provider Internal Medicine
DX: R11.2 Nausea with vomiting, unspecified (principal); E87.6 Hypokalemia; E55.9 Vitamin D deficiency, unspecified; E11.9 Type 2 diabetes mellitus without complications
CPT/HCPCS: 36415; 80048; 80061; 82043; 82306

== ENCOUNTER 2022-09-27 14:49 | Outpatient (REF) | payer OTHER, SELFPAY ==
--- NOTE | ~2022-09-27 | US_ITS ---
EXAMINATION: US RETROPERITONEAL LIMITED (RENAL ONLY) CLINICAL INFORMATION: Calculus of kidney. COMPARISON: CT abdomen and pelvis 09/09/2022. TECHNIQUE: Real-time imaging of the kidneys. FINDINGS: RIGHT KIDNEY: 9.9 x 5.2 x 5.0 cm (SAG x AP x TRV). The kidney is normal in size, contour, and echogenicity. Renal cortical thickness is normal. No hydronephrosis. There is a 0.6 cm nonobstructing calculus in the upper pole and a 0.4 cm nonobstructive calculus in the midpole. There are multiple cysts including a cyst with multiple thin internal septations in the midpole measuring 2 x 1.3 x 1.7 cm. LEFT KIDNEY: 10.6 x 5.6 x 4.3 cm (SAG x AP x TRV). The kidney is normal in size, contour, and echogenicity. Renal cortical thickness is normal. No hydronephrosis. There is a 0.4 cm nonobstructive calculus in the mid to upper pole. There are multiple cysts including a cyst with a thin internal septation in the lateral lower pole measuring 2.9 x 2 x 2.4 cm. US/US renal BI IMPRESSION: 1. Bilateral nonobstructive renal calculi. 2. Multiple bilateral cysts some of which demonstrates multiple septations classified as Bosniak 2F. Recommend continue to follow up.
== END 2022-09-27 14:50 | disposition home or self-care (01) ==
LOC: HO.US 14:49
PROVIDERS: PCP Internal Medicine; Visit Provider Internal Medicine
DX: N20.0 Calculus of kidney (principal)
CPT/HCPCS: 76775

== ENCOUNTER → 2022-11-19 14:39 | Outpatient (BNVA) | payer OTHER, SELFPAY | PROVIDERS: PCP Internal Medicine; Visit Provider Internal Medicine Endocrinology, Diabetes & Metabolism | DX: E13.9 Other specified diabetes mellitus without complications (principal) | CPT/HCPCS: 82947; 83036; 99212 ==

== ENCOUNTER → 2022-11-22 09:06 | Outpatient (BNVA) | payer OTHER, SELFPAY | PROVIDERS: PCP Internal Medicine; Visit Provider Nurse Practitioner Family | DX: N20.0 Calculus of kidney (principal); N28.1 Cyst of kidney, acquired | CPT/HCPCS: 99202 ==

== ENCOUNTER → 2022-11-25 13:06 | Outpatient (BNVA) | payer OTHER, SELFPAY | PROVIDERS: PCP Internal Medicine; Visit Provider Dietitian, Registered | DX: E13.9 Other specified diabetes mellitus without complications (principal); G80.9 Cerebral palsy, unspecified | CPT/HCPCS: 97802 ==

== ENCOUNTER 2023-01-01 08:40 | Outpatient (REF) | payer OTHER, SELFPAY ==
[2023-01-01 09:04] LABS: MANUAL DIFF FLAG NO
[2023-01-01 10:01] LABS: Basophils Percent Auto 0.7 % (0-2); Eosinophils Absolute Auto 0.2 X10*3/uL (0.0-0.4); Eosinophils Percent Auto 4.6 % (0-4); Hematocrit 42.1 % (42.0-52.0); Hemoglobin 14.4 g/dl (14.0-18.0); Imm Gran Abs Auto 0.01 X10*3/uL (0.00-0.03); Imm Gran Pct Auto 0.2 % (0.0-0.4); Lymphocytes Absolute Auto 1.5 X10*3/uL (1.2-4.9); Lymphocytes Percent Auto 33.7 % (20-40); Mean Corpuscular HGB Conc 34.2 g/dl (31.0-36.0); Mean Corpuscular Hemoglobin 31.1 pg (27.0-33.0); Mean Corpuscular Volume 90.9 fL (80.0-98.0); Mean Platelet Volume 9.3 fL (9.4-12.4); Monocytes Absolute Auto 0.3 X10*3/uL (0.1-1.2); Monocytes Percent Auto 6.6 % (2-11); Neutrophils Absolute Auto 2.4 x10*3/uL (2.0-8.3); Neutrophils Percent Auto 54.2 % (45-73); Platelet Count 213 X10*3/uL (160-400); Red Blood Count 4.63 X10*6/uL (4.60-5.80); Red Cell Distribution Width 11.6 % (11.0-16.0); White Blood Count 4.4 X10*3/uL (4.8-10.8)
[2023-01-01 10:32] LABS: Glucose Random 150 mg/dL (60-115)
[2023-01-01 10:39] LABS: Alanine Aminotransferase 24 U/L (0-40); Albumin Level 4.5 g/dL (3.5-5.0); Alkaline Phosphatase 57 U/L (39-117); Anion Gap 13 (12-20); Aspartate Amino Transferase 17 U/L (5-37); Blood Urea Nitrogen 21 mg/dL (9-16); Calcium 9.5 mg/dL (8.4-10.2); Carbon Dioxide 29 mmol/L (22-29); Chloride 107 mmol/L (96-108); Cholesterol 152 mg/dL; Estimated Glomerular Filt Rate > 60; Glucose Fasting 147 mg/dL (60-99); HDL Cholesterol 40 mg/dL; LDL Cholesterol Calculated 96 mg/dl; Potassium 4.4 mmol/L (3.3-5.1); Sodium 145 mmol/L (135-145); Total Protein 7.1 g/dL (6.5-8.0); Triglycerides 82 mg/dL
[2023-01-03 06:13] LABS: C Peptide 2.28 ng/mL (0.80-3.85)
[2023-01-05 19:33] LABS: Glutamic acid decarboxylase Ab 9 IU/mL (<5)
== END 2023-01-01 08:41 | disposition home or self-care (01) ==
LOC: HO.LAB 08:40
PROVIDERS: Internal Medicine Endocrinology, Diabetes & Metabolism; PCP Internal Medicine; Visit Provider Internal Medicine
DX: E13.9 Other specified diabetes mellitus without complications (principal); K21.9 Gastro-esophageal reflux disease without esophagitis; E78.5 Hyperlipidemia, unspecified; D64.9 Anemia, unspecified
CPT/HCPCS: 36415; 80053; 80061; 82947; 84681; 85025; 86341

== ENCOUNTER 2023-03-01 15:46 | Emergency (ER) | payer OTHER, SELFPAY ==
[2023-03-01] VITALS (7 sets, daily range): BP systolic 134–197; BP diastolic 79–84; PULSE 66–77; RESP 12–20; TEMP 36.4–37.1; O2SAT 96–100; BMI 17.7
--- NOTE | ~2023-03-01 | CT_ITS ---
EXAMINATION: CT ABDOMEN AND PELVIS WITHOUT CONTRAST CLINICAL INFORMATION: Abdominal pain COMPARISON: Previous CT of the abdomen and pelvis most recent August 2022 TECHNIQUE: Multidetector volumetric imaging was performed from the superior aspect of the liver through the pubic symphysis. Sagittal and coronal reformatted images were obtained on the technologist's workstation. This CT examination was performed using dose optimization techniques as appropriate, variously including the following: *Automated exposure control *Adjustment of mA and/or kV according to patient size (this includes techniques or standardized protocols for targeted exams where dose is matched to indication/reason for exam; i.e. extremities or head) *Use of iterative reconstruction technique DLP: 316 mGy-cm FINDINGS: LUNG BASES: The visualized lung bases are unremarkable. LIVER, GALLBLADDER, AND BILIARY TREE: The liver is normal in size, shape, and attenuation. No focal hepatic lesion or biliary ductal dilatation is present. The gallbladder is unremarkable with no evidence of radiopaque gallstones, gallbladder wall thickening, or obvious pericholecystic inflammatory changes. PANCREAS: Unremarkable. SPLEEN: Unremarkable. ADRENAL GLANDS: Unremarkable. KIDNEYS AND URETERS: There are small bilateral renal stones. There are bilateral renal simple and hyperdense cysts. These are similar to August 2022 exam. No imaging follow-up recommended. BLADDER: Unremarkable. GASTROINTESTINAL TRACT: There is wall thickening of the colon suggestive of colitis. There is also evidence of mild diverticulosis of the distal colon. The small and large bowel are otherwise unremarkable. The appendix is unremarkable. ABDOMINAL WALL: No significant hernia is appreciated. LYMPH NODES: Normal. VASCULAR: Unremarkable. PELVIC VISCERA: Unremarkable. OSSEOUS STRUCTURES: Curvature of the lumbar spine to the left. CT/CT abdomen pelvis wo IV con IMPRESSION: Mild pancolitis. Mild diverticulosis. Small bilateral renal stones. Fleischner guidelines were followed.
--- NOTE | 2023-03-01 15:57 | ECG_ITS ---
Test Reason : NAUSEA Blood Pressure : / mmHG Vent. Rate : 076 BPM Atrial Rate : 076 BPM P-R Int : 126 ms QRS Dur : 076 ms QT Int : 390 ms P-R-T Axes : 039 063 026 degrees QTc Int : 438 ms Normal sinus rhythm Normal ECG When compared with ECG of 13-JAN-2022 15:06, No significant change was found Referred By: Max Hein Electronically Signed By:DAVI GROVES
--- NOTE | 2023-03-01 15:59 | ED_ITS ---
HPI - General Adult General Chief complaint: Nausea/Vomiting/Diarrhea Stated complaint: diabetic, passing out, weakness Time Seen by Provider: 03/01/23 16:05 Related Data Home Medications Medication Instructions Recorded Confirmed extra depth diabetic shoes with 3 .Route 08/27/22 08/05/23 pair custom glucagon 3 mg/actuation nasal mg intranasal 11/19/22 08/05/23 spray (Baqsimi) Previous Rx's Medication Instructions Recorded wheelchair #1 ea 10/11/20 blood-glucose meter (FreeStyle #1 ea 06/19/21 Lite Meter kit) ankle wraps #1 ea 06/28/22 lidocaine 5 % topical patch 1 patch topical DAILY #30 ea 09/28/22 (Lidoderm) crutch tips #2 ea 10/01/22 cholecalciferol (vitamin D3) 50 50 mcg PO DAILY 90 days #90 caps 01/07/23 mcg (2,000 unit) capsule cyclobenzaprine 5 mg tablet 5 mg PO TID PRN muscle spasm 7 01/07/23 days #21 tabs metoclopramide HCl 5 mg tablet 5 mg PO TIDAC 90 days #270 tabs 01/07/23 pyridoxine (vitamin B6) 100 mg 100 mg PO DAILY 90 days #90 tabs 01/07/23 tablet rosuvastatin 5 mg tablet 5 mg PO DAILY 90 days #90 tabs 01/07/23 diphenhydramine HCl 25 mg capsule 25 mg PO TID PRN nausea and 03/01/23 (Benadryl) vomiting 7 days #21 caps chlorpromazine 25 mg tablet 25 mg PO DAILY PRN hiccups 2 days 03/05/23 #2 tabs disposable gloves #2 ea 03/25/23 blood sugar diagnostic (FreeStyle #50 ea 04/23/23 Test strips) omeprazole 40 mg capsule,delayed 40 mg PO BID #180 caps 06/20/23 release insulin aspart U-100 100 unit/mL 5 unit (0.05 mL) subcut TID #15 mL 07/01/23 (3 mL) subcutaneous pen (Novolog FlexPen U-100 Insulin aspart) insulin glargine 100 unit/mL (3 15 unit (0.15 mL) subcut DAILY #15 07/01/23 mL) subcutaneous pen (Lantus mL Solostar U-100 Insulin) pen needle, diabetic 32 gauge x #100 ea 07/01/23 5/16 (Comfort EZ Pen [place]) blood-glucose sensor (Dexcom G7 #3 ea 07/03/23 Sensor device) Allergies Allergy/AdvReac Type Severity Reaction Status Date / Time No Known Allergies Allergy Verified 08/05/23 10:47 [facility] Past Medical History Medical History Elevated cholesterol Diabetes Pancolitis Cough BPH (benign prostatic hyperplasia) Renal calculi Mild depression Osteopenia Anemia Elevated alkaline phosphatase level Insomnia Cerebral palsy GERD (gastroesophageal reflux disease) 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 Plan for fingerstick glucose, labs, EKG Medications Administered Discontinued Medications Generic Name Dose Route Start Last Admin Trade Name Freq PRN Reason Stop Dose Admin Diphenhydramine HCl 50 mg 03/01/23 16:34 03/01/23 17:00 Diphenhydramine Hcl 50 Mg/Ml Vial IVPUSH 03/01/23 16:35 50 mg ONCE ONE Administration Famotidine 20 mg 03/01/23 16:32 03/01/23 17:00 Famotidine/Pf 20 Mg/2 Ml Vial IVPUSH 03/01/23 16:33 20 mg ONCE ONE Administration Sodium Chloride 1,000 mls @ 999 mls/hr 03/01/23 16:37 03/01/23 18:49 Ns IV 03/01/23 17:37 Infused .Q1H1M STA Infusion Sodium Chloride 1,000 mls @ 999 mls/hr 03/01/23 18:33 03/01/23 19:48 Ns IV 03/01/23 19:33 Infused .Q1H1M STA Infusion Methylprednisolone Sodium Succinate 60 mg 03/01/23 21:17 03/01/23 21:40 Methylprednisolone Sod Succ 125 Mg/2 Ml Vial IVPUSH 03/01/23 21:18 60 mg ONCE ONE Administration Morphine Sulfate 4 mg 03/01/23 16:32 03/01/23 16:59 Morphine Sulfate 4 Mg/Ml Cartridge IVPUSH 03/01/23 16:33 4 mg ONCE ONE Administration Protocol Morphine Sulfate 4 mg 03/01/23 23:25 03/01/23 23:42 Morphine Sulfate 4 Mg/Ml Cartridge IVPUSH 03/01/23 23:26 4 mg ONCE ONE Administration Protocol Oxycodone HCl 5 mg 03/01/23 23:25 03/01/23 23:42 Oxycodone Hcl Immed Release 5 Mg Tablet PO 03/01/23 23:26 5 mg ONCE ONE Administration Medical Decision Making Lab Data 03/01/23 16:19 03/01/23 16:19 Labs: Lab Results 03/01/23 03/01/23 03/01/23 Range/Units 16:03 16:19 17:03 WBC 15.5 H (4.8-10.8) X10*3/uL RBC 4.69 (4.60-5.80) X10*6/uL Hgb 14.7 (14.0-18.0) g/dl Hct 43.0 (42.0-52.0) % MCV 91.7 (80.0-98.0) fL MCH 31.3 (27.0-33.0) pg MCHC 34.2 (31.0-36.0) g/dl RDW 12.2 (11.0-16.0) % Plt Count 271 D (160-400) X10*3/uL MPV 9.2 L (9.4-12.4) fL Immature Gran % (Auto) 0.5 H (0.0-0.4) % Neut % (Auto) 90.4 H (45-73) % Lymph % (Auto) 5.5 L (20-40) % [place] % (Auto) 3.3 (2-11) % Eos % (Auto) 0.0 (0-4) % Baso % (Auto) 0.3 (0-2) % Lymph # (Auto) 0.9 L (1.2-4.9) X10*3/uL [place] # (Auto) 0.5 (0.1-1.2) X10*3/uL Eos # (Auto) 0.0 (0.0-0.4) X10*3/uL Baso # (Auto) 0.1 (0.0-0.2) X10*3/uL Abs Immat Gran (auto) 0.08 H (0.00-0.03) X10*3/uL Absolute Neuts (auto) 14.0 H (2.0-8.3) x10*3/uL Absolute Nucleated RBC 0.000 (0.0-0.012) X10*3/uL Nucleated RBC % (auto) 0.0 (0.0-0.2) /100WBC Smear Tech's Comments VERIFIED PT 12.2 (10.0-13.1) SEC INR 1.1 (0.9-1.1) APTT 25.0 L (26.0-36.4) SEC Sodium 141 (135-145) mmol/L Potassium 4.2 (3.3-5.1) mmol/L Chloride 102 (96-108) mmol/L Carbon Dioxide 26 (22-29) mmol/L Anion Gap 17 (12-20) BUN 26 H (9-16) mg/dL Creatinine 1.13 (0.5-1.4) mg/dL Estim Creat Clear Calc 58.2 Estimated GFR > 60 POC Glucose 317 H (60-115) mg/dL Random Glucose 321 H (60-115) mg/dL Calcium 10.0 (8.4-10.2) mg/dL Magnesium 2.0 (1.6-2.6) mg/dL Total Bilirubin 2.3 H (0.0-1.0) mg/dL AST 25 (5-37) U/L ALT 43 H (0-40) U/L Alkaline Phosphatase 81 (39-117) U/L Troponin I High Sens < 2.7 (<3.5-35.0) ng/L Total Protein 8.2 H (6.5-8.0) g/dL Albumin 5.2 H (3.5-5.0) g/dL Lipase 9 (8-78) U/L Urine Color Urine Appearance Urine pH (5.0-9.0) Ur Specific [place] (1.005-1.025) Urine Protein (Neg-Trace) mg/dL Urine Glucose (UA) (Negative) mg/dL Urine Ketones (Negative) mg/dL Urine Blood (Negative) Urine Nitrite (Negative) Ur Leukocyte Esterase (Negative) Urine RBC (0-2) /HPF Urine WBC (0-5) /HPF Ur Squamous Epith Cells (0-2) /HPF Urine Bacteria (None Seen) Hyaline Casts (0-2) /LPF Stool Occult Blood NEGATIVE (NEGATIVE) Acetone, Qual Negative (Negative) Influenza Type A (PCR) NEGATIVE (Negative) Influenza Type B (PCR) NEGATIVE (Negative) RSV RNA Qual (PCR) NEGATIVE (Negative) SARS-CoV-2 RNA (RT-PCR) NEGATIVE (Negative) 03/01/23 03/01/23 03/01/23 Range/Units 18:41 19:38 21:02 WBC (4.8-10.8) X10*3/uL RBC (4.60-5.80) X10*6/uL Hgb (14.0-18.0) g/dl Hct (42.0-52.0) % MCV (80.0-98.0) fL MCH (27.0-33.0) pg MCHC (31.0-36.0) g/dl RDW (11.0-16.0) % Plt Count (160-400) X10*3/uL MPV (9.4-12.4) fL Immature Gran % (Auto) (0.0-0.4) % Neut % (Auto) (45-73) % Lymph % (Auto) (20-40) % [place] % (Auto) (2-11) % Eos % (Auto) (0-4) % Baso % (Auto) (0-2) % Lymph # (Auto) (1.2-4.9) X10*3/uL [place] # (Auto) (0.1-1.2) X10*3/uL Eos # (Auto) (0.0-0.4) X10*3/uL Baso # (Auto) (0.0-0.2) X10*3/uL Abs Immat Gran (auto) (0.00-0.03) X10*3/uL Absolute Neuts (auto) (2.0-8.3) x10*3/uL Absolute Nucleated RBC (0.0-0.012) X10*3/uL Nucleated RBC % (auto) (0.0-0.2) /100WBC Smear Tech's Comments PT (10.0-13.1) SEC INR (0.9-1.1) APTT (26.0-36.4) SEC Sodium (135-145) mmol/L Potassium (3.3-5.1) mmol/L Chloride (96-108) mmol/L Carbon Dioxide (22-29) mmol/L Anion Gap (12-20) BUN (9-16) mg/dL Creatinine (0.5-1.4) mg/dL Estim Creat Clear Calc Estimated GFR POC Glucose 230 H (60-115) mg/dL Random Glucose (60-115) mg/dL Calcium (8.4-10.2) mg/dL Magnesium (1.6-2.6) mg/dL Total Bilirubin (0.0-1.0) mg/dL AST (5-37) U/L ALT (0-40) U/L Alkaline Phosphatase (39-117) U/L Troponin I High Sens < 2.7 (<3.5-35.0) ng/L Total Protein (6.5-8.0) g/dL Albumin (3.5-5.0) g/dL Lipase (8-78) U/L Urine Color Yellow Urine Appearance Clear Urine pH 5.5 (5.0-9.0) Ur Specific [place] >= 1.030 H (1.005-1.025) Urine Protein 30 (1+) H (Neg-Trace) mg/dL Urine Glucose (UA) >=1000 H (Negative) mg/dL Urine Ketones >=160 (Negative) mg/dL Urine Blood Negative (Negative) Urine Nitrite Negative (Negative) Ur Leukocyte Esterase Negative (Negative) Urine RBC 0-2 (0-2) /HPF Urine WBC 0-5 (0-5) /HPF Ur Squamous Epith Cells 0-2 (0-2) /HPF Urine Bacteria None Seen (None Seen) Hyaline Casts 0-2 (0-2) /LPF Stool Occult Blood (NEGATIVE) Acetone, Qual (Negative) Influenza Type A (PCR) (Negative) Influenza Type B (PCR) (Negative) RSV RNA Qual (PCR) (Negative) SARS-CoV-2 RNA (RT-PCR) (Negative) Discharge Plan Discharge Clinical Impression: Pancolitis, Gastroparesis, Syncope Patient Disposition: Home, Self-Care Instructions: Diabetic Gastroparesis (DC), Syncope (DC), Ulcerative Colitis (ED) Additional Instructions: Your workup came back negative for heart attack. You were negative for influenza RSV and COVID. Urine negative for infection. Your kidney function are normal. Your CT scan showed pancolitis which could be a form of ulcerative colitis. 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 He will be discharged with steroids. Return to the ED immediately for worsening abdominal pain, dysuria, hematuria, flank pain, blood in stool, chest pain, shortness of breath syncope, any other concerning symptoms. Prescriptions: New diphenhydramine HCl [Benadryl] 25 mg capsule 25 mg PO TID PRN (Reason: nausea and vomiting) 7 Days Qty: 21 0RF No Action (DME) blood-glucose meter [FreeStyle Lite Meter] Kit See Rx Instructions .Route Qty: 1 0RF Rx Instructions: As directed (DME) ankle wraps See Rx Instructions .Route .MEDSUPPLY Qty: 1 0RF Rx Instructions: As directed lidocaine [Lidoderm] 5 % adhesive patch,medicated 1 patch topical DAILY Qty: 30 0RF Rx Instructions: leave on most painful area for up to 12 hrs (DME) crutch tips 05/17 See Rx Instructions .Route .MEDSUPPLY Qty: 2 0RF Rx Instructions: As directed (DME) disposable gloves Package See Rx Instructions .Route Qty: 2 0RF Rx Instructions: As directed (DME) FreeStyle Test Strip See Rx Instructions .Route Qty: 50 11RF Rx Instructions: Use 1 test strip once a day omeprazole 40 mg capsule,delayed release(DR/EC) 40 mg PO BID Qty: 180 0RF (DME) Dexcom G7 Sensor Device See Rx Instructions .Route Qty: 3 4RF Rx Instructions: As directed change every 10 days (DME) wheelchair electric See Rx Instructions .Route .MEDSUPPLY Qty: 1 0RF Rx Instructions: As directed cholecalciferol (vitamin D3) 50 mcg (2,000 unit) capsule 50 mcg PO DAILY 90 Days Qty: 90 1RF cyclobenzaprine 5 mg tablet 5 mg PO TID PRN (Reason: muscle spasm) 7 Days Qty: 21 0RF metoclopramide HCl 5 mg tablet 5 mg PO TIDAC 90 Days Qty: 270 1RF pyridoxine (vitamin B6) 100 mg tablet 100 mg PO DAILY 90 Days Qty: 90 1RF rosuvastatin 5 mg tablet 5 mg PO DAILY 90 Days Qty: 90 1RF chlorpromazine 25 mg tablet 25 mg PO DAILY PRN (Reason: hiccups) 2 Days Qty: 2 0RF extra depth diabetic shoes with 3 pair custom .Route Rx Instructions: .Routeheat-molded multi-density innersoles Baqsimi 3 mg/actuation spray,non-aerosol intranasal insulin glargine [Lantus Solostar U-100 Insulin] 100 unit/mL (3 mL) insulin pen 15 unit subcut DAILY Qty: 15 4RF insulin aspart U-100 [Novolog FlexPen U-100 Insulin] 100 unit/mL (3 mL) insulin pen 5 unit subcut TID Qty: 15 5RF (DME) pen needle, diabetic [Comfort EZ Pen [place]] 32 gauge x 5/16 needle See Rx Instructions .Route Qty: 100 5RF Rx Instructions: As directed injects 4 X/day Referrals: [facility] [place] [facility] [Provider Group] (Pancolitis) Interventions: ED Discharge Assessment Last Done: 03/02/23 00:10 Discharge Date/Time: 03/02/23 00:13 Print Language: Lao
[2023-03-01 16:07] LABS: Glucose, Whole Blood 317 mg/dL (60-115)
[2023-03-01 16:27] LABS: Basophils Absolute Auto 0.1 X10*3/uL (0.0-0.2); Basophils Percent Auto 0.3 % (0-2); Hemoglobin 14.7 g/dl (14.0-18.0); Imm Gran Abs Auto 0.08 X10*3/uL (0.00-0.03); Imm Gran Pct Auto 0.5 % (0.0-0.4); Lymphocytes Absolute Auto 0.9 X10*3/uL (1.2-4.9); Lymphocytes Percent Auto 5.5 % (20-40); Mean Corpuscular HGB Conc 34.2 g/dl (31.0-36.0); Mean Corpuscular Hemoglobin 31.3 pg (27.0-33.0); Mean Corpuscular Volume 91.7 fL (80.0-98.0); Mean Platelet Volume 9.2 fL (9.4-12.4); Monocytes Absolute Auto 0.5 X10*3/uL (0.1-1.2); Monocytes Percent Auto 3.3 % (2-11); Neutrophils Percent Auto 90.4 % (45-73); Platelet Count 271 X10*3/uL (160-400); Red Blood Count 4.69 X10*6/uL (4.60-5.80); Red Cell Distribution Width 12.2 % (11.0-16.0); SCAN SMEAR FLAG 1; White Blood Count 15.5 X10*3/uL (4.8-10.8)
[2023-03-01 16:32] LABS: INTERNATIONAL NORM RATIO 1.1 (0.9-1.1); Prothrombin Time 12.2 SEC (10.0-13.1)
--- NOTE | 2023-03-01 16:35 | ED.GENADULT ---
HPI - General Adult General Chief complaint: Nausea/Vomiting/Diarrhea Stated complaint: diabetic, passing out, weakness Time Seen by Provider: 03/01/23 16:05 Source: patient Mode of arrival: ambulatory Limitations: no limitations History of Present Illness HPI narrative: 43 yold male with pmh of Cerebral palsy, BPH, DM, GI bleed presents to the ED for mutiple episodes of vomitting and diarrhea, and syncopal episodes. Patient states right sided abdominal pain that is generalized. Family member states patient compalining of chills. Patient denies any chest pain. Patient states diarrhea dark brown. Related Data Home Medications Medication Instructions Recorded Confirmed extra depth diabetic shoes with 3 .Route 08/27/22 01/07/23 pair custom glucagon 3 mg/actuation nasal mg intranasal 11/19/22 01/07/23 spray (Baqsimi) Previous Rx's Medication Instructions Recorded wheelchair #1 ea 10/11/20 blood-glucose meter (FreeStyle #1 ea 06/19/21 Lite Meter kit) blood sugar diagnostic (FreeStyle #50 ea 12/12/21 Test strips) ankle wraps #1 ea 06/28/22 lidocaine 5 % topical patch 1 patch topical DAILY #30 ea 09/28/22 (Lidoderm) crutch tips #2 ea 10/01/22 cholecalciferol (vitamin D3) 50 50 mcg PO DAILY 90 days #90 caps 01/07/23 mcg (2,000 unit) capsule cyclobenzaprine 5 mg tablet 5 mg PO TID PRN muscle spasm 7 01/07/23 days #21 tabs dulaglutide 0.75 mg/0.5 mL 0.75 mg (0.5 mL) subcut QWEEK 90 01/07/23 subcutaneous pen injector days #6.5 mL (Trulicity) glipizide 5 mg tablet 5 mg PO BID 90 days #180 tabs 01/07/23 metoclopramide HCl 5 mg tablet 5 mg PO TIDAC 90 days #270 tabs 01/07/23 omeprazole 40 mg capsule,delayed 40 mg PO BID #180 caps 01/07/23 release pyridoxine (vitamin B6) 100 mg 100 mg PO DAILY 90 days #90 tabs 01/07/23 tablet rosuvastatin 5 mg tablet 5 mg PO DAILY 90 days #90 tabs 02/28/23 diphenhydramine HCl 25 mg capsule 25 mg PO TID PRN nausea and 03/01/23 (Benadryl) vomiting 7 days #21 caps ondansetron HCl 4 mg tablet 4 mg PO Q6-8H PRN nausea and 03/01/23 vomiting 3 days #12 tabs oxycodone 5 mg capsule 5 mg PO Q8H PRN pain 3 days #9 caps 03/01/23 prednisone 20 mg tablet 40 mg PO DAILY 7 days #14 tabs 03/01/23 Allergies Allergy/AdvReac Type Severity Reaction Status Date / Time No Known Allergies Allergy Verified 03/01/23 15:57 Review of Systems Review of Systems: Vomitting, diarrhea, and syncope Yes all other systems are reviewed and are negative [facility] Past Medical History Medical History Anemia BPH (benign prostatic hyperplasia) Cerebral palsy Cough Elevated alkaline phosphatase level GERD (gastroesophageal reflux disease) Insomnia 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 Social History 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 have visiting nurse or other home services: Yes ([employer]) Alcohol intake: former Patient Tobacco Use Status: Former Tobacco user Tobacco use type: Cigarette Smoked in Last 30 Days: No e-Cigarette/Vaping Use: Never Used Second Hand Smoke Exposure: No Use of substances other than those prescribed or required for medical reasons: Yes Substance Use Type: Marijuana Advance Directives: No Advance Directives Information Provided: No service: No Current occupational status: disabled Cognitive needs: Yes Hearing needs: No Vision needs: Yes Physical Exam ED Vital Signs: Vital Signs - 24 hr 03/01/23 18:36 03/01/23 18:48 03/01/23 21:05 Temperature 98.7 F Pulse Rate 70 77 75 Respiratory Rate 12 15 15 Blood Pressure 157/84 H 150/84 H 134/79 Pulse Oximetry 98 96 100 Oxygen Delivery Method Room Air Room Air Room Air 03/01/23 21:40 Temperature 98.0 F Pulse Rate 66 Respiratory Rate 20 Blood Pressure 134/79 Pulse Oximetry 98 Oxygen Delivery Method Room Air BMI result Body Mass Index 17.7 Const General: cooperative, healthy appearing, comfortable, no acute distress, well developed, alert, awake and Physically active Orientation/consciousness: oriented to person, oriented to place, oriented to time and patient oriented x3 HENMT Head: Yes normal to inspection, Yes No palpable skull fracture present, Yes normocephalic, Yes atraumatic and No abrasion Eyes General: appearance normal, both eyes and all related structures Neck Neck: Yes normal visual inspection, Yes full ROM, Yes no lymphadenopathy, Yes no meningeal signs, Yes trachea midline, Yes supple, No anterior neck swelling and No tender Chest Chest palpation & inspection: normal inspection of the chest and normal palpation of entire chest wall Resp Effort & Inspection: normal respiratory effort and able to speak in complete sentences Auscultation: clear to auscultation bilaterally Cardio Jugular venous distension: no JVD Heart sounds: S1 normal heart sound present and S2 normal heart sound present GI Other: Rectal exam: positive for brown stool. negative for melena, bright red blood, or melena Inspection: Yes normal to inspection and No abdominal wall ecchymosis Palpation (GI): Tenderness to palpation present (GI) (generalized abdominal tenderness on palpation. ), no guarding and not rigid General: No CVA tenderness and Yes no CVA tenderness Back/Spine/Pelvis Back: no CVA tenderness, No CVA tenderness and No back tenderness Skin General skin exam: no rashes or lesions noted and elasticity normal Neuro General: oriented to person, oriented to place, oriented to time, patient oriented x3, gait normal, tone normal, moves all extremities, Normal light touch and pain sensation, no meningeal signs, no focal motor deficits, CN's II-XI intact bilaterally and normal sensation to monofilament Extrem General: Yes normal to inspection and Yes full ROM Psych Appearance: grossly normal, well kempt and not disheveled Course Course Course Narrative: Patient generalized tender abdomen EKG labs reordered. Acetone added. Benadryl Pepcid morphine ordered. Occult exam ordered. POC 317. Patient have a cardiac evaluation which is EKG and troponin. Codes to sent to see patient and risk of GI bleed. Pepcid given due to history of acid reflux. Labs drawn to check for DKA. Reevaluation(s) Reevaluation #1: Patient is not in DKA. EKG [address] scan shows mild pancolitis. Patient given steroids in the ER. Patient feels better. Patient informed to follow with gastroenteritis. Patient states he feels better and hydrate after fluids. Time: 22:39 Medications Administered Discontinued Medications Generic Name Dose Route Start Last Admin Trade Name Freq PRN Reason Stop Dose Admin Diphenhydramine HCl 50 mg 03/01/23 16:34 03/01/23 17:00 Diphenhydramine Hcl 50 Mg/Ml Vial IVPUSH 03/01/23 16:35 50 mg ONCE ONE Administration Famotidine 20 mg 03/01/23 16:32 03/01/23 17:00 Famotidine/Pf 20 Mg/2 Ml Vial IVPUSH 03/01/23 16:33 20 mg ONCE ONE Administration Sodium Chloride 1,000 mls @ 999 mls/hr 03/01/23 16:37 03/01/23 18:49 Ns IV 03/01/23 17:37 Infused .Q1H1M STA Infusion Sodium Chloride 1,000 mls @ 999 mls/hr 03/01/23 18:33 03/01/23 19:48 Ns IV 03/01/23 19:33 Infused .Q1H1M STA Infusion Methylprednisolone Sodium Succinate 60 mg 03/01/23 21:17 03/01/23 21:40 Methylprednisolone Sod Succ 125 Mg/2 Ml Vial IVPUSH 03/01/23 21:18 60 mg ONCE ONE Administration Morphine Sulfate 4 mg 03/01/23 16:32 03/01/23 16:59 Morphine Sulfate 4 Mg/Ml Cartridge IVPUSH 03/01/23 16:33 4 mg ONCE ONE Administration Protocol Morphine Sulfate 4 mg 03/01/23 23:25 03/01/23 23:42 Morphine Sulfate 4 Mg/Ml Cartridge IVPUSH 03/01/23 23:26 4 mg ONCE ONE Administration Protocol Oxycodone HCl 5 mg 03/01/23 23:25 03/01/23 23:42 Oxycodone Hcl Immed Release 5 Mg Tablet PO 03/01/23 23:26 5 mg ONCE ONE Administration Medical Decision Making Medical Decision Making MDM Narrative: 43-year-old male with history of diabetes presents to ED for abdominal pain, vomiting, diarrhea, and syncope. Patient received IV fluids negative cardiac workup and received steroids for pancolitis. Patient feels better. Not suspecting any pulmonary embolus or pneumonia. NOt Suspecting myocardial infarction. Not suspecting C diff. patient denies any new antibiotics or recent hospital admission. Differential Diagnosis Differential Diagnoses: The differential diagnosis associated with the presentation includes (Myocardial infarction, appendicitis, cholecystitis, DKA, gastroparesis, pancreatitis, UTI) Admission/Observation Consideration of admission/observation: Escalation of care including admission/observation considered Lab Data [facility] Lab Attestation statement: I reviewed the patient's lab results. 03/01/23 16:19 03/01/23 16:19 Labs: Lab Results 03/01/23 03/01/23 03/01/23 Range/Units 16:03 16:19 16:19 WBC 15.5 H (4.8-10.8) X10*3/uL RBC 4.69 (4.60-5.80) X10*6/uL Hgb 14.7 (14.0-18.0) g/dl Hct 43.0 (42.0-52.0) % MCV 91.7 (80.0-98.0) fL MCH 31.3 (27.0-33.0) pg MCHC 34.2 (31.0-36.0) g/dl RDW 12.2 (11.0-16.0) % Plt Count 271 D (160-400) X10*3/uL MPV 9.2 L (9.4-12.4) fL Immature Gran % (Auto) 0.5 H (0.0-0.4) % Neut % (Auto) 90.4 H (45-73) % Lymph % (Auto) 5.5 L (20-40) % [place] % (Auto) 3.3 (2-11) % Eos % (Auto) 0.0 (0-4) % Baso % (Auto) 0.3 (0-2) % Lymph # (Auto) 0.9 L (1.2-4.9) X10*3/uL [place] # (Auto) 0.5 (0.1-1.2) X10*3/uL Eos # (Auto) 0.0 (0.0-0.4) X10*3/uL Baso # (Auto) 0.1 (0.0-0.2) X10*3/uL Abs Immat Gran (auto) 0.08 H (0.00-0.03) X10*3/uL Absolute Neuts (auto) 14.0 H (2.0-8.3) x10*3/uL Absolute Nucleated RBC 0.000 (0.0-0.012) X10*3/uL Nucleated RBC % (auto) 0.0 (0.0-0.2) /100WBC Smear Tech's Comments VERIFIED PT (10.0-13.1) SEC INR (0.9-1.1) APTT (26.0-36.4) SEC Sodium 141 (135-145) mmol/L Potassium 4.2 (3.3-5.1) mmol/L Chloride 102 (96-108) mmol/L Carbon Dioxide 26 (22-29) mmol/L Anion Gap 17 (12-20) BUN 26 H (9-16) mg/dL Creatinine 1.13 (0.5-1.4) mg/dL Estim Creat Clear Calc 58.2 Estimated GFR > 60 POC Glucose 317 H (60-115) mg/dL Random Glucose 321 H (60-115) mg/dL Calcium 10.0 (8.4-10.2) mg/dL Magnesium 2.0 (1.6-2.6) mg/dL Total Bilirubin 2.3 H (0.0-1.0) mg/dL AST 25 (5-37) U/L ALT 43 H (0-40) U/L Alkaline Phosphatase 81 (39-117) U/L Troponin I High Sens (<3.5-35.0) ng/L Total Protein 8.2 H (6.5-8.0) g/dL Albumin 5.2 H (3.5-5.0) g/dL Lipase 9 (8-78) U/L Urine Color Urine Appearance Urine pH (5.0-9.0) Ur Specific [place] (1.005-1.025) Urine Protein (Neg-Trace) mg/dL Urine Glucose (UA) (Negative) mg/dL Urine Ketones (Negative) mg/dL Urine Blood (Negative) Urine Nitrite (Negative) Ur Leukocyte Esterase (Negative) Urine RBC (0-2) /HPF Urine WBC (0-5) /HPF Ur Squamous Epith Cells (0-2) /HPF Urine Bacteria (None Seen) Hyaline Casts (0-2) /LPF Stool Occult Blood (NEGATIVE) Acetone, Qual (Negative) Influenza Type A (PCR) (Negative) Influenza Type B (PCR) (Negative) RSV RNA Qual (PCR) (Negative) SARS-CoV-2 RNA (RT-PCR) (Negative) 03/01/23 03/01/23 03/01/23 Range/Units 16:19 16:19 16:19 WBC (4.8-10.8) X10*3/uL RBC (4.60-5.80) X10*6/uL Hgb (14.0-18.0) g/dl Hct (42.0-52.0) % MCV (80.0-98.0) fL MCH (27.0-33.0) pg MCHC (31.0-36.0) g/dl RDW (11.0-16.0) % Plt Count (160-400) X10*3/uL MPV (9.4-12.4) fL Immature Gran % (Auto) (0.0-0.4) % Neut % (Auto) (45-73) % Lymph % (Auto) (20-40) % [place] % (Auto) (2-11) % Eos % (Auto) (0-4) % Baso % (Auto) (0-2) % Lymph # (Auto) (1.2-4.9) X10*3/uL [place] # (Auto) (0.1-1.2) X10*3/uL Eos # (Auto) (0.0-0.4) X10*3/uL Baso # (Auto) (0.0-0.2) X10*3/uL Abs Immat Gran (auto) (0.00-0.03) X10*3/uL Absolute Neuts (auto) (2.0-8.3) x10*3/uL Absolute Nucleated RBC (0.0-0.012) X10*3/uL Nucleated RBC % (auto) (0.0-0.2) /100WBC Smear Tech's Comments PT 12.2 (10.0-13.1) SEC INR 1.1 (0.9-1.1) APTT 25.0 L (26.0-36.4) SEC Sodium (135-145) mmol/L Potassium (3.3-5.1) mmol/L Chloride (96-108) mmol/L Carbon Dioxide (22-29) mmol/L Anion Gap (12-20) BUN (9-16) mg/dL Creatinine (0.5-1.4) mg/dL Estim Creat Clear Calc Estimated GFR POC Glucose (60-115) mg/dL Random Glucose (60-115) mg/dL Calcium (8.4-10.2) mg/dL Magnesium (1.6-2.6) mg/dL Total Bilirubin (0.0-1.0) mg/dL AST (5-37) U/L ALT (0-40) U/L Alkaline Phosphatase (39-117) U/L Troponin I High Sens < 2.7 (<3.5-35.0) ng/L Total Protein (6.5-8.0) g/dL Albumin (3.5-5.0) g/dL Lipase (8-78) U/L Urine Color Urine Appearance Urine pH (5.0-9.0) Ur Specific [place] (1.005-1.025) Urine Protein (Neg-Trace) mg/dL Urine Glucose (UA) (Negative) mg/dL Urine Ketones (Negative) mg/dL Urine Blood (Negative) Urine Nitrite (Negative) Ur Leukocyte Esterase (Negative) Urine RBC (0-2) /HPF Urine WBC (0-5) /HPF Ur Squamous Epith Cells (0-2) /HPF Urine Bacteria (None Seen) Hyaline Casts (0-2) /LPF Stool Occult Blood (NEGATIVE) Acetone, Qual Negative (Negative) Influenza Type A (PCR) (Negative) Influenza Type B (PCR) (Negative) RSV RNA Qual (PCR) (Negative) SARS-CoV-2 RNA (RT-PCR) (Negative) 03/01/23 03/01/23 03/01/23 Range/Units 17:03 17:03 18:41 WBC (4.8-10.8) X10*3/uL RBC (4.60-5.80) X10*6/uL Hgb (14.0-18.0) g/dl Hct (42.0-52.0) % MCV (80.0-98.0) fL MCH (27.0-33.0) pg MCHC (31.0-36.0) g/dl RDW (11.0-16.0) % Plt Count (160-400) X10*3/uL MPV (9.4-12.4) fL Immature Gran % (Auto) (0.0-0.4) % Neut % (Auto) (45-73) % Lymph % (Auto) (20-40) % [place] % (Auto) (2-11) % Eos % (Auto) (0-4) % Baso % (Auto) (0-2) % Lymph # (Auto) (1.2-4.9) X10*3/uL [place] # (Auto) (0.1-1.2) X10*3/uL Eos # (Auto) (0.0-0.4) X10*3/uL Baso # (Auto) (0.0-0.2) X10*3/uL Abs Immat Gran (auto) (0.00-0.03) X10*3/uL Absolute Neuts (auto) (2.0-8.3) x10*3/uL Absolute Nucleated RBC (0.0-0.012) X10*3/uL Nucleated RBC % (auto) (0.0-0.2) /100WBC Smear Tech's Comments PT (10.0-13.1) SEC INR (0.9-1.1) APTT (26.0-36.4) SEC Sodium (135-145) mmol/L Potassium (3.3-5.1) mmol/L Chloride (96-108) mmol/L Carbon Dioxide (22-29) mmol/L Anion Gap (12-20) BUN (9-16) mg/dL Creatinine (0.5-1.4) mg/dL Estim Creat Clear Calc Estimated GFR POC Glucose (60-115) mg/dL Random Glucose (60-115) mg/dL Calcium (8.4-10.2) mg/dL Magnesium (1.6-2.6) mg/dL Total Bilirubin (0.0-1.0) mg/dL AST (5-37) U/L ALT (0-40) U/L Alkaline Phosphatase (39-117) U/L Troponin I High Sens (<3.5-35.0) ng/L Total Protein (6.5-8.0) g/dL Albumin (3.5-5.0) g/dL Lipase (8-78) U/L Urine Color Yellow Urine Appearance Clear Urine pH 5.5 (5.0-9.0) Ur Specific [place] >= 1.030 H (1.005-1.025) Urine Protein 30 (1+) H (Neg-Trace) mg/dL Urine Glucose (UA) >=1000 H (Negative) mg/dL Urine Ketones >=160 (Negative) mg/dL Urine Blood Negative (Negative) Urine Nitrite Negative (Negative) Ur Leukocyte Esterase Negative (Negative) Urine RBC 0-2 (0-2) /HPF Urine WBC 0-5 (0-5) /HPF Ur Squamous Epith Cells 0-2 (0-2) /HPF Urine Bacteria None Seen (None Seen) Hyaline Casts 0-2 (0-2) /LPF Stool Occult Blood NEGATIVE (NEGATIVE) Acetone, Qual (Negative) Influenza Type A (PCR) NEGATIVE (Negative) Influenza Type B (PCR) NEGATIVE (Negative) RSV RNA Qual (PCR) NEGATIVE (Negative) SARS-CoV-2 RNA (RT-PCR) NEGATIVE (Negative) 03/01/23 03/01/23 Range/Units 19:38 21:02 WBC (4.8-10.8) X10*3/uL RBC (4.60-5.80) X10*6/uL Hgb (14.0-18.0) g/dl Hct (42.0-52.0) % MCV (80.0-98.0) fL MCH (27.0-33.0) pg MCHC (31.0-36.0) g/dl RDW (11.0-16.0) % Plt Count (160-400) X10*3/uL MPV (9.4-12.4) fL Immature Gran % (Auto) (0.0-0.4) % Neut % (Auto) (45-73) % Lymph % (Auto) (20-40) % [place] % (Auto) (2-11) % Eos % (Auto) (0-4) % Baso % (Auto) (0-2) % Lymph # (Auto) (1.2-4.9) X10*3/uL [place] # (Auto) (0.1-1.2) X10*3/uL Eos # (Auto) (0.0-0.4) X10*3/uL Baso # (Auto) (0.0-0.2) X10*3/uL Abs Immat Gran (auto) (0.00-0.03) X10*3/uL Absolute Neuts (auto) (2.0-8.3) x10*3/uL Absolute Nucleated RBC (0.0-0.012) X10*3/uL Nucleated RBC % (auto) (0.0-0.2) /100WBC Smear Tech's Comments PT (10.0-13.1) SEC INR (0.9-1.1) APTT (26.0-36.4) SEC Sodium (135-145) mmol/L Potassium (3.3-5.1) mmol/L Chloride (96-108) mmol/L Carbon Dioxide (22-29) mmol/L Anion Gap (12-20) BUN (9-16) mg/dL Creatinine (0.5-1.4) mg/dL Estim Creat Clear Calc Estimated GFR POC Glucose 230 H (60-115) mg/dL Random Glucose (60-115) mg/dL Calcium (8.4-10.2) mg/dL Magnesium (1.6-2.6) mg/dL Total Bilirubin (0.0-1.0) mg/dL AST (5-37) U/L ALT (0-40) U/L Alkaline Phosphatase (39-117) U/L Troponin I High Sens < 2.7 (<3.5-35.0) ng/L Total Protein (6.5-8.0) g/dL Albumin (3.5-5.0) g/dL Lipase (8-78) U/L Urine Color Urine Appearance Urine pH (5.0-9.0) Ur Specific [place] (1.005-1.025) Urine Protein (Neg-Trace) mg/dL Urine Glucose (UA) (Negative) mg/dL Urine Ketones (Negative) mg/dL Urine Blood (Negative) Urine Nitrite (Negative) Ur Leukocyte Esterase (Negative) Urine RBC (0-2) /HPF Urine WBC (0-5) /HPF Ur Squamous Epith Cells (0-2) /HPF Urine Bacteria (None Seen) Hyaline Casts (0-2) /LPF Stool Occult Blood (NEGATIVE) Acetone, Qual (Negative) Influenza Type A (PCR) (Negative) Influenza Type B (PCR) (Negative) RSV RNA Qual (PCR) (Negative) SARS-CoV-2 RNA (RT-PCR) (Negative) Independent Interpretation I performed an independent interpretation of an: EKG (Normal sinus rhythm. Ventricular rate was 76. Peer interval 126. QRS 76. QTC 438. Negative STEMI) Radiology Impression Discussion of test interpretation with radiology: I have reviewed the radiologist's reading. Discharge Plan Discharge Clinical Impression: Pancolitis, Gastroparesis, Syncope Patient Disposition: Home, Self-Care Instructions: Diabetic Gastroparesis (DC), Syncope (DC), Ulcerative Colitis (ED) Additional Instructions: Your workup came back negative for heart attack. You were negative for influenza RSV and COVID. Urine negative for infection. Your kidney function are normal. Your CT scan showed pancolitis which could be a form of ulcerative colitis. You will need follow-up with paid internship. He will be discharged with steroids. Return to the ED immediately for worsening abdominal pain, dysuria, hematuria, flank pain, blood in stool, chest pain, shortness of breath syncope, any other concerning symptoms. Prescriptions: New prednisone 20 mg tablet 40 mg PO DAILY 7 Days Qty: 14 0RF ondansetron HCl 4 mg tablet 4 mg PO Q6-8H PRN (Reason: nausea and vomiting) 3 Days Qty: 12 0RF oxycodone 5 mg capsule 5 mg PO Q8H PRN (Reason: pain) 3 Days Qty: 9 0RF Rx Instructions: Partial Fill upon patient request. diphenhydramine HCl [Benadryl] 25 mg capsule 25 mg PO TID PRN (Reason: nausea and vomiting) 7 Days Qty: 21 0RF No Action (DME) blood-glucose meter [FreeStyle Lite Meter] Kit See Rx Instructions .Route Qty: 1 0RF Rx Instructions: As directed (DME) ankle wraps See Rx Instructions .Route .MEDSUPPLY Qty: 1 0RF Rx Instructions: As directed lidocaine [Lidoderm] 5 % adhesive patch,medicated 1 patch topical DAILY Qty: 30 0RF Rx Instructions: leave on most painful area for up to 12 hrs (DME) crutch tips 7/8 See Rx Instructions .Route .MEDSUPPLY Qty: 2 0RF Rx Instructions: As directed (DME) wheelchair electric See Rx Instructions .Route .MEDSUPPLY Qty: 1 0RF Rx Instructions: As directed (DME) FreeStyle Test Strip See Rx Instructions .Route Qty: 50 11RF Rx Instructions: Use 1 test strip once a day cholecalciferol (vitamin D3) 50 mcg (2,000 unit) capsule 50 mcg PO DAILY 90 Days Qty: 90 1RF cyclobenzaprine 5 mg tablet 5 mg PO TID PRN (Reason: muscle spasm) 7 Days Qty: 21 0RF Trulicity 0.75 mg/0.5 mL pen injector 0.75 mg subcut QWEEK 90 Days Qty: 6.5 1RF glipizide 5 mg tablet 5 mg PO BID 90 Days Qty: 180 1RF metoclopramide HCl 5 mg tablet 5 mg PO TIDAC 90 Days Qty: 270 1RF omeprazole 40 mg capsule,delayed release(DR/EC) 40 mg PO BID Qty: 180 0RF pyridoxine (vitamin B6) 100 mg tablet 100 mg PO DAILY 90 Days Qty: 90 1RF rosuvastatin 5 mg tablet 5 mg PO DAILY 90 Days Qty: 90 1RF extra depth diabetic shoes with 3 pair custom .Route Rx Instructions: .[employer]-molded multi-density innersoles Baqsimi 3 mg/actuation spray,non-aerosol intranasal Referrals: [facility] [Provider Group] (Pancolitis) Interventions: ED Discharge Assessment Last Done: 03/02/23 00:10 Discharge Date/Time: 03/02/23 00:13 Print Language: Yoruba
[2023-03-01 16:43] LABS: Alanine Aminotransferase 43 U/L (0-40); Albumin Level 5.2 g/dL (3.5-5.0); Alkaline Phosphatase 81 U/L (39-117); Anion Gap 17 (12-20); Aspartate Amino Transferase 25 U/L (5-37); Bilirubin Total 2.3 mg/dL (0.0-1.0); Blood Urea Nitrogen 26 mg/dL (9-16); Carbon Dioxide 26 mmol/L (22-29); Chloride 102 mmol/L (96-108); Creatinine Clr Calc Pharmacy 58.2; Estimated Glomerular Filt Rate > 60; Glucose Random 321 mg/dL (60-115); Lipase 9 U/L (8-78); Potassium 4.2 mmol/L (3.3-5.1); Sodium 141 mmol/L (135-145); Total Protein 8.2 g/dL (6.5-8.0)
[2023-03-01 16:46] LABS: Acetone, serum QL Negative (Negative)
[2023-03-01 16:55] LABS: MANUAL DIFF FLAG SCAN; SLIDE REVIEW VERIFIED
[2023-03-01 16:56] LABS: Troponin-I High Sensitivity < 2.7 ng/L (<3.5-35.0)
[2023-03-01] MEDS: Morphine Sulfate 4 MG/ML CARTRIDGE IVPUSH ×2 (16:59→23:42)
[2023-03-01] MEDS: Famotidine/PF 20 MG/2 ML VIAL IVPUSH (17:00)
[2023-03-01] MEDS: diphenhydrAMINE HCL 50 MG/ML VIAL IVPUSH (17:00)
[2023-03-01] MEDS: 0.9 % Sodium Chloride 1,000 ML 999 ML IV ×2 (17:01→18:49)
[2023-03-01 17:13] LABS: OBS Int Ctl Valid YES; OBS1 NEGATIVE (NEGATIVE)
--- NOTE | 2023-03-01 17:23 | PC.NURSE ---
Pt semi-fowlers on stretcher, airway open and patent, no difficulty breathing, pt appears to be in pain and weak. A&ox4, skin pale for ethnicity, warm, and clammy. Lung sounds clr and equal bilat. Heart sounds normal. Bowel sounds present all kaplan, soft, tenderness upon palpation right side. No edema noted. Pt reports nausea/vomiting multiple times since this morning as well as diarrhea. Pt reports marijuana use yesterday.
[2023-03-01 18:01] LABS: Influenza A PCR NEGATIVE (Negative); Influenza B PCR NEGATIVE (Negative); Resp Syncy Virus RNA Qual PCR NEGATIVE (Negative); SARS COV2 PCR INHOUSE NEGATIVE (Negative)
[2023-03-01 18:58] LABS: Appearance Urine Clear; Color Urine Yellow; Glucose Urine UA >=1000 mg/dL (Negative); Leukocyte Esterase Urine Negative (Negative); Nitrite Urine Negative (Negative); PH 5.5 (5.0-9.0); Specific Gravity - Urine >= 1.030 (1.005-1.025); UMIC TRIGGER UACC YES; Urine Blood Negative (Negative); Urine Ketones >=160 mg/dL (Negative); Urine Protein 30 (1+) mg/dL (Neg-Trace)
[2023-03-01 19:04] LABS: Bacteria Urine None Seen (None Seen); Hyaline Casts Urine 0-2 /LPF (0-2); RBC Urine 0-2 /HPF (0-2); Squamous Epithelial Cell Urine 0-2 /HPF (0-2); WBC Urine 0-5 /HPF (0-5)
--- NOTE | 2023-03-01 19:25 | PC.NURSE ---
Late entry: this RN and ALLEN Bass went into patient room to attempt ultrasound guided IV, no success. Pt in CT scan now. Pt respirations even and unlabored, vital signs continue to remain stable, no apparent distress and pt offers no complaints at this time
--- NOTE | 2023-03-01 19:40 | MHC.EDTECH ---
POC 230
[2023-03-01 19:43] LABS: Glucose, Whole Blood 230 mg/dL (60-115)
[2023-03-01 21:36] LABS: Troponin-I High Sensitivity < 2.7 ng/L (<3.5-35.0)
[2023-03-01] MEDS: methylPREDNISolone Sod Succ 125 MG/2 ML VIAL 60 MG IVPUSH (21:40)
--- NOTE | 2023-03-01 22:07 | PC.NURSE ---
patient medicated per MAR, pt reports continued crappy feeling . Denies nausea and pain at this time. Respirations even and unlabored, no apparent distress
[2023-03-01] MEDS: oxyCODONE HCl Immed Release 5 MG TABLET PO (23:42)
--- NOTE | 2023-03-02 00:11 | PC.NURSE ---
pt and pts brother both expressed concern regarding leaving at this time. This RN attempted to speak with ALLEN Bass regarding discharge, discharge plan continues. Pt and brother both agreeable to plan at this time. Pt medicated and IV pulled
== END 2023-03-02 00:13 | disposition home or self-care (01) ==
PROVIDERS: Physician Assistant; Emergency Provider Emergency Medicine Emergency Medical Services; PCP Internal Medicine
DX: K51.00 Ulcerative (chronic) pancolitis without complications (principal); E11.43 Type 2 diabetes mellitus with diabetic autonomic (poly)neuropathy; K31.84 Gastroparesis; R55 Syncope and collapse; R11.2 Nausea with vomiting, unspecified; Z20.822 Contact with and (suspected) exposure to COVID-19; Z20.828 Contact with and (suspected) exposure to other viral communicable diseases; E78.5 Hyperlipidemia, unspecified
CPT/HCPCS: 0241U; 36415; 74176; 80053; 81001; 82009; 82272; 82947; 83690; 83735; 84484; 85025; 85610; 85730; 93005; 96361; 96374; 96375; 96376; 99284; 99285; J1200; J2270; J2930

== ENCOUNTER → 2023-03-06 12:38 | Outpatient (BNVA) | payer OTHER, SELFPAY | PROVIDERS: PCP Internal Medicine; Visit Provider Dietitian, Registered | DX: E11.43 Type 2 diabetes mellitus with diabetic autonomic (poly)neuropathy (principal) | CPT/HCPCS: 97803 ==

== ENCOUNTER 2023-03-25 06:24 | Day surgery (SDC) | payer OTHER, SELFPAY ==
[2023-03-21 09:15] VITALS: BMI 17.4
--- NOTE | 2023-03-24 11:59 | P.CONAN_ITS ---
[facility] Active Problems Active Problems: All Active Problems (Updated 03/06/23 @ 09:50 by Isabell Young MD) Pancolitis (Acute) Hospital discharge follow-up (Acute) Spastic cerebral palsy (Acute) Renal cyst (Acute) Renal calculi (Acute) Lumbar muscle pain (Acute) Cerebral palsy (Acute) Hyperlipidemia LDL goal <70 (Acute) Colitis (Acute) Diabetic keto-acidosis (Acute) Acute kidney injury (Acute) Cannabinoid hyperemesis syndrome (Acute) Nausea & vomiting (Acute) Hypokalemia (Acute) Gastroparesis (Acute) COVID-19 (Acute) Diabetes mellitus with gastroparesis (Acute) Cough (Acute) BPH (benign prostatic hyperplasia) (Acute) Renal calculi (Acute) Mild depression (Acute) 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) Alcohol intake: former Patient Tobacco Use Status: Former Tobacco user Tobacco use type: Cigarette e-Cigarette/Vaping Use: Never Used Second Hand Smoke Exposure: No Substance Use Type: Marijuana service: No Current occupational status: disabled Cognitive needs: Yes Hearing needs: No Vision needs: Yes Meds Allergies Allergy/AdvReac Type Severity Reaction Status Date / Time No Known Allergies Allergy Verified 03/05/23 16:54 Home Medications Medication Instructions Recorded Confirmed Last Taken Type extra depth diabetic shoes with 3 .Route 08/27/22 03/05/23 Unknown History pair custom glucagon 3 mg/actuation nasal mg intranasal 11/19/22 03/05/23 Unknown History spray (Baqsimi) Exam Exam Date and Time: March 24, 2023 1159 Height,Weight and Vital Signs: Height 5 ft 6 in Weight 48.988 kg Pertinent Lab Results Pertinent Lab Results: Laboratory Tests 03/01/23 03/01/23 16:19 16:19 WBC 15.5 H Hgb 14.7 Hct 43.0 Plt Count 271 D Sodium 141 Potassium 4.2 Chloride 102 Carbon Dioxide 26 BUN 26 H Creatinine 1.13 Narrative Narrative: EKG 02/2023 Vent. Rate : 076 BPM ? ? Atrial Rate : 076 BPM ?? P-R Int : 126 ms? QRS Dur : 076 ms ? ? QT Int : 390 ms ? ? ? P-R-T Axes : 039 063 026 degrees ?? QTc Int : 438 ms ? Normal sinus rhythm Normal ECG When compared with ECG of 13-JAN-2022 15:06, No significant change was found Assessment and Plan Assessment Anesthesia Assessment: Chart Reviewed Final Anesthetic Review History of Problems with Anesthesia: No
[2023-03-25 07:24] VITALS: BMI 17.4
[2023-03-25 07:38] VITALS: BP 118/80; PULSE 80; RESP 16; TEMP 36.7; O2SAT 98
[2023-03-25 07:50] LABS: Glucose, Whole Blood 363 mg/dL (60-115)
[2023-03-25] MEDS: Lactated Ringers 1,000 ML 100 ML IVCONT (07:57)
[2023-03-25] MEDS: Insulin Lispro 100 UNIT/ML 3 ML VIAL 8 UNIT SUBCUT (08:12)
--- NOTE | 2023-03-25 08:24 | MHC.SHP ---
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), managed as type 2 Mild depression Osteopenia Renal calculi) History of Previous Operations: Relevant previous surgery/procedure and date(s) (History of esophagogastroduodenoscopy (EGD) Hx of esophagitis Hx of foot surgery) Allergies: Allergies Allergy/AdvReac Type Severity Reaction Status Date / Time No Known Allergies Allergy Verified 03/25/23 07:36 Review of Systems Sugical H&P ROS: Negative: Constitution, Cardiovascular, Respiratory, Neurological, Psychiatric, Hem-Onc, Allergic/Immunologic, Gastrointestinal, Genitourinary, Musculoskeletal, Integumentary, Endocrine and Eyes/Ears/Nose/Throat Exam Surgical H&P Exam: Normal: HEENT, Normal: Heart, Normal: Lungs, Normal: Extremities, Normal: Abdomen and Normal: Skin and Significant Findings: Neurological (poor mobility, uses crutches ) Plan Diagnosis/Plan: Unchanged I have reviewed the history and physical and performed a pertinent physical examination on my patient. No changes have occurred unless specified. Time Spent With Patient Time: Total time managing care of this patient today ____ minutes.
--- NOTE | 2023-03-25 08:25 | W.PM.OPN ---
Operative Note Operative Note Date of Service: 03/25/23 Narrative: Procedure Description: EGD Indication: hx of esophagitis Anesthesia: MAC FLEXIBLE TRANSORAL UPPER GASTROINTESTINAL ENDOSCOPY UPPER ENDOSCOPY Consent: Indications for the procedure and potential complications of bleeding, perforation, reaction to medications and missed diagnosis were discussed with the patient and informed consent was obtained. Instrument: Olympus GIF H 190 J mid size upper endoscope Monitoring: Vital signs and clinical assessment, continuous EKG monitoring, Pulse oximetry, Carbon Dioxide monitoring and blood pressure monitoring were done throughout the procedure. Procedure: The patient was placed in the left lateral decubitis position and pre-procedure medications were administered and a bite block was placed. The endoscope was inserted into the mouth and advanced under direct vision to the third part of duodenum. A careful inspection was made as the upper endoscope was withdrawn including a retroflexed examination of the proximal stomach; Findings and interventions are described below. 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 Biopsies were obtained. Grade 2 flap valve on retroflexed examination of the cardia. 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
--- NOTE | 2023-03-25 08:31 | HO.ANESPROP2 ---
FORM[facility], [facility] Active Problems Active Problems: All Active Problems (Updated 03/25/23 @ 07:36 by Bere Coffey, RN) Diabetes mellitus with gastroparesis (Acute) COVID-19 (Acute) Gastroparesis (Acute) Hypokalemia (Acute) Nausea & vomiting (Acute) Cannabinoid hyperemesis syndrome (Acute) Acute kidney injury (Acute) Diabetic keto-acidosis (Acute) Colitis (Acute) Hyperlipidemia LDL goal <70 (Acute) Lumbar muscle pain (Acute) Renal calculi (Acute) Renal cyst (Acute) Spastic cerebral palsy (Acute) Hospital discharge follow-up (Acute) Pancolitis (Acute) Cerebral palsy (Acute) Cough (Acute) BPH (benign prostatic hyperplasia) (Acute) Renal calculi (Acute) Mild depression (Acute) 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) Alcohol intake: former Patient Tobacco Use Status: Former Tobacco user Quit Date: age 16 Tobacco use type: Cigarette e-Cigarette/Vaping Use: Never Used Second Hand Smoke Exposure: No Use of substances other than those prescribed or required for medical reasons: Yes Substance Use Type: Marijuana Substance Use Frequency: Daily Are you DNR?: No Advance Directives: No Advance Directives Information Provided: Yes service: No Current occupational status: disabled Cognitive needs: Yes Hearing needs: No Vision needs: Yes Meds Allergies Allergy/AdvReac Type Severity Reaction Status Date / Time No Known Allergies Allergy Verified 03/25/23 07:36 Active Medications: Current Medications Lactated Ringer's (Lr) 1,000 mls @ 100 mls/hr IVCONT .Q10H BOBO Last Admin: 03/25/23 07:57 Dose: 100 mls/hr Ondansetron HCl (Ondansetron Hcl 4 Mg/2 Ml Vial) 4 mg IVPUSH ONCE PRN PRN Reason: Nausea and Vomiting Home Medications Medication Instructions Recorded Confirmed Last Taken Type extra depth diabetic shoes with 3 .Route 08/27/22 03/05/23 Unknown History pair custom glucagon 3 mg/actuation nasal mg intranasal 11/19/22 03/05/23 Unknown History spray (Baqsimi) Exam Exam Date and Time: March 25, 2023 0831 Height,Weight and Vital Signs: Height 5 ft 6 in Weight 48.988 kg Last Vital Signs Temp 98.1 F 03/25/23 07:38 Pulse 80 03/25/23 07:38 Resp 16 03/25/23 07:38 BP 118/80 03/25/23 07:38 Pulse Ox 98 03/25/23 07:38 O2 Del Method Room Air 03/25/23 07:38 Pertinent Lab Results Pertinent Lab Results: Laboratory Tests 03/25/23 07:43 POC Glucose 363 H* Airway Mallampati Class: I TM Dist: >3cm Neck ROM: Full Loose/Missing/Broken Teeth: No Heart: rrr Lungs: clear Assessment and Plan Final Anesthetic Review Family History of Problems with Anesthesia: No History of Problems with Anesthesia: No NPO: Yes ASA Class: II Final Preanesthetic Review: No Changes in Pt Med Stat, Meds/Allgs Chart Reviewed, Consent Obtained/Reviewed and Anes Risks/Benef Reviewed Patient Risk: Intermediate Anesthetic Plan Anesthetic Plan: MAC: Disposition: Standard PACU
[2023-03-25 08:54] VITALS: BP 111/72; PULSE 86; RESP 15; TEMP 36.4; O2SAT 100
[2023-03-25 08:54] LABS: Glucose, Whole Blood 298 mg/dL (60-115)
[2023-03-25 09:02] LABS: Glucose, Whole Blood 235 mg/dL (60-115)
[2023-03-25 09:09] VITALS: BP 128/93; PULSE 89; RESP 16; TEMP 36.9; O2SAT 98
== END 2023-03-25 10:25 | disposition home or self-care (01) ==
PROVIDERS: PCP Internal Medicine; Visit Provider Internal Medicine Gastroenterology
PROC: 0DJ08ZZ Inspection of Upper Intestinal Tract, Via Natural or Artificial Opening Endoscopic (ICD-10-PCS; CPT 43235; principal; 2023-03-25 08:30)
DX: K21.9 Gastro-esophageal reflux disease without esophagitis (principal); K29.70 Gastritis, unspecified, without bleeding; K44.9 Diaphragmatic hernia without obstruction or gangrene; D64.9 Anemia, unspecified; E13.8 Other specified diabetes mellitus with unspecified complications; G80.9 Cerebral palsy, unspecified; Z79.899 Other long term (current) drug therapy
CPT/HCPCS: 43239; 82947; 88305; 88342

== ENCOUNTER 2023-04-01 09:43 | Outpatient (REF) | payer OTHER, SELFPAY ==
--- NOTE | ~2023-04-01 | CT_ITS ---
EXAMINATION: CT HEAD WITHOUT CONTRAST CLINICAL INFORMATION: Syncope and collapse. COMPARISON: Head CT 10/06/2014. TECHNIQUE: Contiguous axial imaging was performed from the skull base to vertex without intravenous administration of contrast. This CT examination was performed using dose optimization techniques as appropriate, variously including the following: *Automated exposure control *Adjustment of mA and/or kV according to patient size (this includes techniques or standardized protocols for targeted exams where dose is matched to indication/reason for exam; i.e. extremities or head) *Use of iterative reconstruction technique DLP: 750 mGy-cm. FINDINGS: There is no intracranial hemorrhage, extra-axial collection, mass effect, or territorial infarction. There is patchy hypoattenuation in the cerebral white matter, similar to prior and compatible chronic microangiopathy. There is mildly patulous appearance of the superior aspect of the bilateral lateral ventricles, which may represent chronic expected dilatation, unchanged. There is mild paranasal sinus mucosal thickening. The calvarium appears intact. CT/CT head/brain wo IV con IMPRESSION: No acute intracranial abnormality.
== END 2023-04-01 09:44 | disposition home or self-care (01) ==
LOC: HO.CT 09:43
PROVIDERS: PCP Internal Medicine; Visit Provider Internal Medicine
DX: R55 Syncope and collapse (principal)
CPT/HCPCS: 70450

== ENCOUNTER → 2023-04-11 10:41 | Outpatient (BNVA) | payer OTHER, SELFPAY | PROVIDERS: PCP Internal Medicine; Visit Provider Registered Nurse Diabetes Educator | DX: E11.43 Type 2 diabetes mellitus with diabetic autonomic (poly)neuropathy (principal) | CPT/HCPCS: 99211 ==

== ENCOUNTER 2023-05-15 10:04 | Outpatient (REF) | payer OTHER, SELFPAY ==
--- NOTE | ~2023-05-15 | US_ITS ---
EXAMINATION: US RETROPERITONEAL LIMITED (RENAL ONLY) CLINICAL INFORMATION: Cyst of kidney, acquired. COMPARISON: CT abdomen and pelvis 03/01/2023. Renal ultrasound 09/27/2022. Ultrasound abdomen 01/31/2019. TECHNIQUE: Real-time imaging of the kidneys. FINDINGS: RIGHT KIDNEY: 9.6 x 4.5 x 4.5 cm (SAG x AP x TRV). The kidney is normal in size, contour, and echogenicity. Renal cortical thickness is normal. No renal calculi or hydronephrosis. Upper pole cyst measures 3.2 x 3.2 x 2.1 cm. LEFT KIDNEY: 10.4 x 5.2 x 4.1 cm (SAG x AP x TRV). The kidney is normal in size, contour, and echogenicity. Renal cortical thickness is normal. No renal calculi or hydronephrosis. Septated lower pole cyst measures 2.5 x 2.1 x 2.1 cm. US/US renal BI IMPRESSION: Bilateral renal cysts with the largest as described. No suspicious features.
== END 2023-05-15 10:05 | disposition home or self-care (01) ==
LOC: HO.US 10:04
PROVIDERS: PCP Internal Medicine; Visit Provider Nurse Practitioner Family
DX: N28.1 Cyst of kidney, acquired (principal); N20.0 Calculus of kidney
CPT/HCPCS: 76775

== ENCOUNTER 2023-05-28 11:58 | Outpatient (AMB) | payer OTHER, SELFPAY ==
--- NOTE | 2023-05-28 11:59 | A.OFFVIS_ITS ---
Intake Intake Visit Reasons: 6m follow up/US Intake Note: Patient is present for Telephone Ultrasound Urology Med: Vitamin B6 Antibiotic Allergy: None Blood Thinner: None Allergies No Known Allergies Allergy (Verified 05/28/23 12:00) Medication List - Last Reconciled 05/28/23 by Ridge Murray MD [ankle wraps As directed] blood sugar diagnostic (FreeStyle Test strips) Use 1 test strip once a day blood-glucose meter (FreeStyle Lite Meter kit) As directed chlorpromazine 25 mg PO DAILY PRN 2 days cholecalciferol (vitamin D3) 50 mcg PO DAILY 90 days [crutch tips As directed] cyclobenzaprine 5 mg PO TID PRN 7 days diphenhydramine HCl (Benadryl) 25 mg PO TID PRN 7 days disposable gloves As directed dulaglutide (Trulicity) 0.75 mg (0.5 mL) subcut QWEEK 90 days [extra depth diabetic shoes with 3 pair custom .Routeheat-molded multi-density innersoles] glipizide 5 mg PO BID 90 days glucagon 3 mg/actuation (Baqsimi) mg intranasal lidocaine 5% (Lidoderm) 1 patch topical DAILY metoclopramide HCl 5 mg PO TIDAC 90 days omeprazole 40 mg PO BID pyridoxine (vitamin B6) 100 mg PO DAILY 90 days rosuvastatin 5 mg PO DAILY 90 days [wheelchair As directed] HPI HPI Comments History of Present Illness Details Wilman is a pleasant male. He is a patient of Dr. Griffiths. He is seen for the following urologic conditions - renal cysts - renal stones Telemedicine Evaluation 15 min Consultation Left 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) Alcohol intake: former Patient Tobacco Use Status: Former Tobacco user Quit Date: age 16 Tobacco use type: Cigarette e-Cigarette/Vaping Use: Never Used Second Hand Smoke Exposure: No Substance Use Type: Marijuana service: No Current occupational status: disabled Cognitive needs: Yes Hearing needs: No Vision needs: Yes Review of Systems Const All systems reviewed & are unremarkable except as noted in HPI and below Reports no additional complaints Resp Reports no additional complaints GI Reports no additional complaints Reports as per HPI Musc Reports no additional complaints Physical Exam Telemedicine evaluation Appropriate responses Regular breathing rate and rhythm HEENT Head: Yes normal to inspection Ears: hearing grossly normal bilaterally Eyes General: appearance normal, both eyes and all related structures Neck Neck: Yes normal visual inspection Chest Chest palpation & inspection: normal inspection of the chest Resp Effort & Inspection: normal respiratory effort and able to speak in complete sentences Assessment & Plan Assessment & Plan (1) Renal calculi: Code(s): N20.0 - Calculus of kidney (2) Renal cyst: Code(s): N28.1 - Cyst of kidney, acquired Plan Six month follow-up imaging Orders: Orders US renal BI 6 Months N20.0 - Calculus of kidney Patient Instructions: Imaging studies, laboratory and physical exam results were discussed and reviewed in detail. No major barriers to patient understanding were identified. An opportunity to ask questions regarding the treatment plan was provided. All questions were answered. The patient expressed understanding and agreement with the above treatment plan. The patient is aware they should contact our office by phone for worsening of their current condition or the appearance of new urologic symptoms. Compliance is encouraged with any medications and followup testing that is ordered. It is a privilege to participate in the urologic care of your patient. If you have any questions or concerns regarding treatment for the above conditions, or other urologic issues, please do not hesitate to contact me. The office telephone contact is [phone]. This note is constructed using voice recognition software. While every effort has been made to ensure accuracy wind farm operations manager errors may have been included. Yours sincerely, Dr Ridge Murray MD, HAN[facility] - Urology Providers of Expert, Compassionate Care for the Genitourinary System Telehealth Telehealth Location of provider rendering services: practice address Location of patient: address on file Patient Identification confirmed using: Name, : Yes Telehealth method: voice only Patient verbally consented to treatment: Yes Patient verbally consented to billing insurance company: Yes Patient informed of any privacy concerns related to visit: Yes Coding Level of Care Code Tele Est Pt Level 3 (50791) Diagnoses Renal calculi N20.0 Renal cyst N28.1
== END 2023-05-28 15:03 | disposition home or self-care (01) ==
LOC: HO.HUSH 11:58
PROVIDERS: PCP Internal Medicine; Visit Provider Nurse Practitioner Family
DX: N20.0 Calculus of kidney (principal); N28.1 Cyst of kidney, acquired
CPT/HCPCS: 99442

== ENCOUNTER → 2023-05-28 11:58 | Outpatient (BNVA) | payer OTHER, SELFPAY | PROVIDERS: PCP Internal Medicine; Visit Provider Nurse Practitioner Family ==

== ENCOUNTER 2023-07-01 12:34 | Outpatient (AMB) | payer OTHER, SELFPAY ==
--- NOTE | 2023-07-01 12:41 | MHC.OFFVIS ---
Intake Vital Signs 07/01/23 12:45 Height 5 ft 6 in Weight 108 lb 3.951 oz BMI 17.5 BP 124/82 Blood Pressure Location Lt brachial Position Sitting Pulse 76 Pulse Source Pulse Oximeter Intake Visit Reasons: F/up ? MINA Intake Note: Patient present today to follow up on MINA. Last Diabetic Eye exam: 10/24/2022 Last Podiatry Visit: 11/12/2022 Random Glucose: 159mg/dl HgA1C: 7.1% Train Brake Operator Required: No Accompanied by: Self / Same As Patient Allergies No Known Allergies Allergy (Verified 07/01/23 12:51) Medication List - Last Reconciled 07/01/23 by Jabari Canales MD [ankle wraps As directed] blood sugar diagnostic (FreeStyle Test strips) Use 1 test strip once a day blood-glucose meter (FreeStyle Lite Meter kit) As directed chlorpromazine 25 mg PO DAILY PRN 2 days cholecalciferol (vitamin D3) 50 mcg PO DAILY 90 days [crutch tips As directed] cyclobenzaprine 5 mg PO TID PRN 7 days diphenhydramine HCl (Benadryl) 25 mg PO TID PRN 7 days disposable gloves As directed dulaglutide (Trulicity) 0.75 mg (0.5 mL) subcut QWEEK 90 days [extra depth diabetic shoes with 3 pair custom .Routeheat-molded multi-density innersoles] glipizide 5 mg PO BID 90 days glucagon 3 mg/actuation (Baqsimi) mg intranasal lidocaine 5% (Lidoderm) 1 patch topical DAILY metoclopramide HCl 5 mg PO TIDAC 90 days omeprazole 40 mg PO BID pyridoxine (vitamin B6) 100 mg PO DAILY 90 days rosuvastatin 5 mg PO DAILY 90 days [wheelchair As directed] HPI HPI Comments History of Present Illness Details This is a 43-year-old white male followed by endocrinology for management of MINA type 1. He is currently on glipizide 5 mg b.i.d. and Trulicity 0.75 mg Q weekly Glucometer download shows she is checking his point cares sporadically. Average glucose is 210 with range 121 to 372. 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 Absence of acromegalic features. Neck exam reveals nl size thyroid about 15 gms. No thyroid nodules palpable. No carotid bruits present. Lungs CTA. Heart S1 S2, Reg R/R. No M/R/ G. Skin exam reveals absence of vitiligo or acanthosis nigricans. Abdominal exam reveals Soft NT/ND with NA BS. No organomegaly present. Extrem Other: Visual exam of foot performed. No ulcerations or open lesions. No onchomycosis, no callouses.Pulses 2 + distally. Sensation intact to monofilament exam. 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 He will read meet with the clinical nurse educator but will meet with the nurse today learn insulin administration. Will also meet with clerical car checker to learn carbohydrate counting. He expressed interest in pump usage and may do this in the future . I will check a lipid profile and microalbumin to creatinine ratio Orders: Orders AMB Hemoglobin A1c Today E11.43 - Type 2 diabetes mellitus with diabetic autonomic (poly)neuropathy Medications: New insulin glargine (Lantus Solostar U-100 Insulin) 15 units (0.15 mL) subcut DAILY 15 mL 4RF insulin aspart U-100 (Novolog FlexPen U-100 Insulin aspart) 5 units (0.05 mL) subcut TID 15 mL 5RF pen needle, diabetic (Comfort EZ Pen [place]) As directed injects 4 X/day 100 ea 5RF blood-glucose sensor (Dexcom G7 Sensor device) As directed change every 10 days 3 ea 4RF Discontinued dulaglutide (Trulicity) Discontinued Reason: Doctor's Order 0.75 mg (0.5 mL) subcut QWEEK 90 days 6.5 mL 1RF E11.43 - Type 2 diabetes mellitus with diabetic autonomic (poly)neuropathy glipizide Discontinued Reason: Doctor's Order 5 mg PO BID 90 days 180 tabs 3RF E13.9 - Other specified diabetes mellitus without complications Coding Level of Care Code Est Pt Level 4 (60085) Diagnoses 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
[2023-07-01 12:45] VITALS: BP 124/82; PULSE 76; BMI 17.5
[2023-07-01 12:58] LABS: Glucose, Whole Blood 159 mg/dL (60-115)
== END 2023-07-01 14:05 | disposition home or self-care (01) ==
PROVIDERS: PCP Internal Medicine; Visit Provider Internal Medicine Endocrinology, Diabetes & Metabolism
DX: E11.43 Type 2 diabetes mellitus with diabetic autonomic (poly)neuropathy (principal); E13.9 Other specified diabetes mellitus without complications
CPT/HCPCS: 99214

== ENCOUNTER → 2023-07-01 12:34 | Outpatient (BNVA) | payer OTHER, SELFPAY | PROVIDERS: PCP Internal Medicine; Visit Provider Internal Medicine Endocrinology, Diabetes & Metabolism | DX: E13.9 Other specified diabetes mellitus without complications (principal) | CPT/HCPCS: 82947; 83036; 99212 ==

== ENCOUNTER 2023-07-09 12:03 | Outpatient (AMB) | payer OTHER, SELFPAY ==
--- NOTE | 2023-07-09 12:56 | MHC.AMDMED ---
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 have visiting nurse or other home services: Yes (LICENSED BONDSMAN) Alcohol intake: former Patient Tobacco Use Status: Former Tobacco user Quit Date: age 16 Tobacco use type: Cigarette e-Cigarette/Vaping Use: Never Used Second Hand Smoke Exposure: No Substance Use Type: Marijuana service: No Current occupational status: disabled Cognitive needs: Yes Hearing needs: No Vision needs: Yes Assessment & Plan Assessment & Plan (1) Diabetes mellitus with gastroparesis: Code(s): E11.43 - Type 2 diabetes mellitus with diabetic autonomic (poly)neuropathy Plan: Personal Continuous Glucose Monitor: Patient is using Dexcom G7 Patients CGM information reviewed Reviewed patient's sensor data: Hypoglycemia: ? 3 % Hyperglycemia:? 11% Time in Range:? 86% Average glucose for the last 10 days 124? mg/dL Downloaded Dexcom clarity lio on patient's cellphone Patient did not know Dexcom log in information so instructed patient to log into Dexcom clarity at home Follow instructions on how to connect to clinic clarity program Patient given clarity code. Patient has had several episodes of hypoglycemia, reviewed with patient how to treat hypoglycemia with rule of 15s The patient is interested in insulin pump. Patient has diagnosis of gastroparesis, discussed with patient how insulin pump may make post meal hyperglycemia easier to control, but it is important to be able to calculate carbohydrates to be able to enter into pump. Will discuss at next visit carbohydrate counting and different types of insulin pumps available Reviewed how to interpret trend arrows Reminded patient that to check finger sticks if symptoms do not match sensor reading. Discussed lag time between finger stick and sensor data.? Patient able to insert sensor independently at home without issue.? Patient Instructions: Patient will follow-up with certified adaptive physical educator for continued carb counting and insulin pump conversation in 1 month Patient instruction: CGM provides information on blood glucose control throughout the day, including hyperglycemia and hypoglycemia. ? Continue to monitor blood glucose as instructed. Follow nutrition guidelines provided. Report any discomfort promptly to health care provider. ?Stay well-hydrated. You can bathe ,shower, swim and exerce while wearing the glucose sensor. Do not submerge glucose sensor in water for more than 30 minutes. Remove sensor for MRI or CAT scan. Avoid Xray machine in airports - remove sensor or request wand Coding Level of Care Code Est Pt Level 1 (02631) Diagnoses Diabetes mellitus with gastroparesis E11.43
== END 2023-07-09 13:00 | disposition home or self-care (01) ==
PROVIDERS: PCP Internal Medicine; Visit Provider Registered Nurse Diabetes Educator
DX: E11.43 Type 2 diabetes mellitus with diabetic autonomic (poly)neuropathy (principal)

== ENCOUNTER → 2023-07-09 12:03 | Outpatient (BNVA) | payer OTHER, SELFPAY | PROVIDERS: PCP Internal Medicine; Visit Provider Registered Nurse Diabetes Educator | DX: E11.43 Type 2 diabetes mellitus with diabetic autonomic (poly)neuropathy (principal); G80.9 Cerebral palsy, unspecified; E55.9 Vitamin D deficiency, unspecified | CPT/HCPCS: 99211 ==

== ENCOUNTER 2023-08-05 10:18 | Outpatient (AMB) | payer OTHER, SELFPAY ==
--- NOTE | 2023-08-05 10:25 | A.OFFPC_ITS ---
Vital Signs 08/05/23 10:31 Height 5 ft 6 in Weight 121 lb BMI 19.5 BP 132/80 Blood Pressure Location Lt brachial Position Sitting Intake Visit Reasons: pe Intake Note: Patient here for an annual physical exam Ball Mill Mixer Required: No Accompanied by: Self / Same As Patient Allergies No Known Allergies Allergy (Verified 08/05/23 10:47) Medication List - Last Reconciled 08/05/23 by Isabell Young MD [ankle wraps As directed] blood sugar diagnostic (FreeStyle Test strips) Use 1 test strip once a day blood-glucose meter (FreeStyle Lite Meter kit) As directed blood-glucose sensor (DexMango DSP G7 Sensor device) As directed change every 10 days chlorpromazine 25 mg PO DAILY PRN 2 days cholecalciferol (vitamin D3) 50 mcg PO DAILY 90 days [crutch tips As directed] cyclobenzaprine 5 mg PO TID PRN 7 days diphenhydramine HCl (Benadryl) 25 mg PO TID PRN 7 days disposable gloves As directed [extra depth diabetic shoes with 3 pair custom .Routeheat-molded multi-density innersoles] glucagon 3 mg/actuation (Baqsimi) mg intranasal insulin aspart U-100 (Novolog FlexPen U-100 Insulin aspart) 5 units (0.05 mL) subcut TID insulin glargine (Lantus Solostar U-100 Insulin) 15 units (0.15 mL) subcut DAILY lidocaine 5% (Lidoderm) 1 patch topical DAILY metoclopramide HCl 5 mg PO TIDAC 90 days omeprazole 40 mg PO BID pen needle, diabetic (Comfort EZ Pen [place]) As directed injects 4 X/day pyridoxine (vitamin B6) 100 mg PO DAILY 90 days rosuvastatin 5 mg PO DAILY 90 days [wheelchair As directed] Tobacco use date assessed: 01/07/23 Dental Screening Dental Screen Date: 08/05/23 Did you have a dental visit in the last 12 months?: Yes Did you have a dental problem in the last 6 months where you did not have access to dental care?: No Was dental information given to patient?: Patient has dentist HPI HPI Comments History of Present Illness Details This is a 43-year-old male with cerebral palsy and MINA that comes for his physical exam. Use crutches for gait stability due to cerebral palsy with no range of motion in lower limbs. On insulin and A1c is very close to goal. Will be referred for colonoscopy. Last diabetic eye exam was less than a year ago. 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 Jabari Mckeon, Argentina Staton, Ernesto Estrada and colleagues, with an educational joesph from [employer]. Review of Systems Const All systems reviewed & are unremarkable except as noted in HPI and below Eyes Reports no additional complaints, Denies change in vision and Denies other visual disturbances Card Denies chest pain at rest, Denies chest pain with activity, Denies edema, Denies irregular heart rhythm, Denies claudication, Denies dyspnea, Denies dyspnea on exertion, Denies orthopnea, Denies paroxysmal nocturnal dyspnea and Denies slow heart rate Resp Denies cough, Denies dyspnea and Denies dyspnea on exertion GI Denies abdominal pain, Denies change in bowel habits, Denies excessive flatus, Denies nausea and Denies vomiting Denies urinary hesitancy, Denies urinary incontinence and Denies urinary urgency Musc Denies abnormal gait, Denies atrophy, Denies deformity and Denies limited range of motion Skin/Breast Denies bleeding lesions, Denies changing lesions and Denies rash Neuro Denies abnormal gait and Denies lack of coordination Physical exam (Primary Care) Vital Signs: Last Vital Signs BP 132/80 08/05/23 10:31 BMI result Body Mass Index 19.5 Tobacco/Smoking Status: Tobacco use Status Tobacco use date assessed 01/07/23 08/05/23 10:27 Patient Tobacco Use Status Former Tobacco user 08/05/23 10:27 Tobacco use type Cigarette 08/05/23 10:27 e-Cigarette/Vaping Use Never Used 08/05/23 10:27 Thrive Assessment: Date of Thrive Assessment Date Thrive assessed 01/07/23 08/05/23 10:27 Const Orientation/consciousness: patient oriented x3 Limitations: crutches HENMT Head: Yes normal to inspection, Yes normocephalic and Yes atraumatic Ears: external ears normal Mouth: lip normal Eyes General: appearance normal, both eyes and all related structures Eyelids: Yes eyelids normal Conjunctivae: conjunctivae normal Neck Neck: Yes normal visual inspection and Yes supple Resp Effort & Inspection: normal respiratory effort Auscultation: clear to auscultation bilaterally Cardio Jugular venous distension: no JVD Rate: regular rate Rhythm: regular rhythm Heart sounds: S1 normal heart sound present and S2 normal heart sound present GI Inspection: Yes normal to inspection Palpation (GI): Soft to palpation and nontender Auscultation: normal bowel sounds Skin General skin exam: no rashes or lesions noted Neuro General: patient oriented x3 Motor exam (neuro): Abnormal motor strength present (5/5 upper limbs, 0/5 lower limbs) Extrem General: Yes full ROM Psych Appearance: grossly normal Assessment and Plan Assessment & Plan (1) Physical exam: Code(s): Z00.00 - Encounter for general adult medical examination without abnormal findings Plan: Repeat in a year (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 A1c goal is equal or less than 7%. Orders: Orders Microalbumin, Random (w Creat) Today E11.9 - Type 2 diabetes mellitus without complications Complete Blood Count Auto Diff Today D72.829 - Elevated white blood cell count, unspecified Comprehensive [place]. 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
[2023-08-05 10:31] VITALS: BP 132/80; BMI 19.5
== END 2023-08-05 11:02 | disposition home or self-care (01) ==
PROVIDERS: Visit Provider Internal Medicine
DX: Z00.00 Encounter for general adult medical examination without abnormal findings (principal); G80.1 Spastic diplegic cerebral palsy; E13.9 Other specified diabetes mellitus without complications
CPT/HCPCS: 99396

== ENCOUNTER 2023-08-12 12:04 | Outpatient (AMB) | payer OTHER, SELFPAY ==
--- NOTE | 2023-08-12 12:34 | A.OFFVIS_ITS ---
Intake VS Expanded 08/12/23 12:35 08/13/23 14:21 Height 5 ft 6 in 5 ft 6 in Weight 121 lb 121 lb BMI 19.5 19.5 Intake Visit Reasons: Dm/CONFIRMED Allergies No Known Allergies Allergy (Verified 08/05/23 10:47) HPI Nutrition Presentation Details Pt presents for MNT f/u for MINA now on insulin with meals. Pt has gastroparesis Pt has cerebral palsy , uses crutches related to no motion in lower limbs. Pt is on Lantus 15 units per day and Novolog 5 units TID. He has noted weight gain from 108-121 lbs in a month time since starting insulin with meals. Pt has glucose sensor - (has not logged into clarity and reports having information to log in). Pt reports having hypoglycemia alarms and sometimes ignores the alarms due to not having hypoglycemia symptoms. Pt was reminded to confirm hypoglycemia with finger stick and to treat hypoglycemia following rule of 15. Pt was advised to not ignore alarms of hypoglycemia even when not having symptoms of hypoglycemia and its risks. Pt reports working on having 3 meals per day,having scheduled meal times 24 hr food recall B: broccoli and chicken , water (reports having taken Novolog with this meal) L: sand on whole wheat bread (chicken or /cheese) sometimes chips or a fruit , water or milk D: rice/beans chicken, salad with olive oil , water or milk Pt also mentioned sometimes taking Novolog with a meal that may consist of non starchy vegetables and protein and 2 hours later developing hypoglycemia. Pt reports he discontinued meals on wheels services and has CONSTRUCTION PROJECT COORDINATOR who helps with meal preparation. TEW-Opkytaa-He.Jeor Equation Height 5 ft 6 in Weight 121 lb Resting Metabolic Rate 1379.65 Calculated Activity Level Mild Activity Calories Needed to Maintain Weight 1897.02 Most Recent Diabetes Results: Cholesterol 174 mg/dL (<200) 08/13/23 HDL Cholesterol 55 mg/dL (>40) 08/13/23 Triglycerides 75 mg/dL (<150) 08/13/23 Creatinine 0.93 mg/dL (0.5-1.4) 08/13/23 Blood Urea Nitrogen 29 mg/dL (9-16) H 08/13/23 Sodium 139 mmol/L (135-145) 08/13/23 Potassium 4.4 mmol/L (3.3-5.1) 08/13/23 Chloride 103 mmol/L (96-108) 08/13/23 Carbon Dioxide 27 mmol/L (22-29) 08/13/23 Calcium 9.5 mg/dL (8.4-10.2) 08/13/23 AST 34 U/L (5-37) 08/13/23 ALT 55 U/L (0-40) H 08/13/23 Total Protein 6.9 g/dL (6.5-8.0) 08/13/23 Albumin 4.2 g/dL (3.5-5.0) 08/13/23 [facility] Medical History Elevated cholesterol Diabetes Pancolitis Cough BPH (benign prostatic hyperplasia) Renal calculi Mild depression Osteopenia Anemia Elevated alkaline phosphatase level Insomnia Cerebral palsy GERD (gastroesophageal reflux disease) 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 have visiting nurse or other home services: Yes (CONSTRUCTION PROJECT COORDINATOR) Alcohol intake: former Patient Tobacco Use Status: Former Tobacco user Quit Date: age 16 Tobacco use type: Cigarette e-Cigarette/Vaping Use: Never Used Second Hand Smoke Exposure: No Substance Use Type: Marijuana service: No Current occupational status: disabled Cognitive needs: Yes Hearing needs: No Vision needs: Yes Assessment & Plan Assessment & Plan (1) Diabetes mellitus with gastroparesis: Code(s): E11.43 - Type 2 diabetes mellitus with diabetic autonomic (poly)neuropathy Plan: wt 121 lbs Est kcal needs as per MSJ: 1900 (40% carb, 30% protein/fat) Est fluid needs as per 30 ml/d: 1700 Est prot per day as per 1 g/kg bw: 55 g Recommend fiber intake : 8-10 g per day and gradually increase to 25-28 g per day for women and 35-38 g for men or as tolerated Recommend sodium intake per day : less than 2000 mg Educated patient on: ( R = reviewed V = verbalizes understanding N/R = needs review N/A = not applicable * Food sources of carbohydrate, adequate serving sizes and its role in various health conditions: R * Differences between complex carbohydrates a simple carbohydrates, role of fiber in diet: R * Differences between types of fats and role in diet (mono on saturated fat fatty acids, saturated fatty acids, trans fats): NR * Food sources of sodium in salt and healthy modifications for heart health in kidney health: NR * Vitamins and minerals: R * Healthy plate method concept: R V - importance of including 2-3 serving of carbs at meal time discussed * Physical activity: Benefits a precaution: R * Hypoglycemia protocol (rule of 15): R V Patient Instructions: Carry glucose tablets with you at all times in the event of low blood sugar (hypoglycemia). Follow rule of 15 to treat hypoglycemia, do not ignore low blood sugar alarms Include 45-60 g of carbohydrates at meal time following healthy plate method, chew foods well, see meal ideas provided, become familiar with carbohydrate amount per serving sizes pamphlet with carbohydrates per portion sizes and meal ideas with carb amount were provided Coding Level of Care Code Nutr Indiv Subseq (94687) Diagnoses Diabetes mellitus with gastroparesis E11.43 Time Spent (min) 30
[2023-08-12 12:35] VITALS: BMI 19.5
[2023-08-13 14:21] VITALS: BMI 19.5
== END 2023-08-12 13:13 | disposition home or self-care (01) ==
PROVIDERS: PCP Internal Medicine; Visit Provider Dietitian, Registered
DX: E11.43 Type 2 diabetes mellitus with diabetic autonomic (poly)neuropathy (principal)

== ENCOUNTER → 2023-08-12 12:04 | Outpatient (BNVA) | payer OTHER, SELFPAY | PROVIDERS: PCP Internal Medicine; Visit Provider Dietitian, Registered | DX: E11.43 Type 2 diabetes mellitus with diabetic autonomic (poly)neuropathy (principal); K31.84 Gastroparesis; Z71.3 Dietary counseling and surveillance | CPT/HCPCS: 97803 ==

== ENCOUNTER 2023-08-13 08:32 | Outpatient (REF) | payer OTHER, SELFPAY ==
[2023-08-13 09:14] LABS: MANUAL DIFF FLAG NO
[2023-08-13 09:36] LABS: Basophils Percent Auto 0.8 % (0-2); Eosinophils Absolute Auto 0.3 X10*3/uL (0.0-0.4); Eosinophils Percent Auto 5.8 % (0-4); Hematocrit 42.1 % (42.0-52.0); Hemoglobin 14.2 g/dl (14.0-18.0); Imm Gran Abs Auto 0.01 X10*3/uL (0.00-0.03); Imm Gran Pct Auto 0.2 % (0.0-0.4); Lymphocytes Absolute Auto 1.5 X10*3/uL (1.2-4.9); Lymphocytes Percent Auto 29.4 % (20-40); Mean Corpuscular HGB Conc 33.7 g/dl (31.0-36.0); Mean Corpuscular Hemoglobin 32.1 pg (27.0-33.0); Mean Platelet Volume 9.2 fL (9.4-12.4); Monocytes Absolute Auto 0.4 X10*3/uL (0.1-1.2); Monocytes Percent Auto 8.2 % (2-11); Neutrophils Absolute Auto 2.9 x10*3/uL (2.0-8.3); Neutrophils Percent Auto 55.6 % (45-73); Platelet Count 223 X10*3/uL (160-400); Red Blood Count 4.43 X10*6/uL (4.60-5.80); Red Cell Distribution Width 12.2 % (11.0-16.0); White Blood Count 5.1 X10*3/uL (4.8-10.8)
[2023-08-13 10:08] LABS: Alanine Aminotransferase 55 U/L (0-40); Albumin Level 4.2 g/dL (3.5-5.0); Alkaline Phosphatase 65 U/L (39-117); Anion Gap 13 (12-20); Aspartate Amino Transferase 34 U/L (5-37); Bilirubin Total 1.1 mg/dL (0.0-1.0); Blood Urea Nitrogen 29 mg/dL (9-16); Calcium 9.5 mg/dL (8.4-10.2); Carbon Dioxide 27 mmol/L (22-29); Chloride 103 mmol/L (96-108); Cholesterol 174 mg/dL (<200); Estimated Glomerular Filt Rate > 60; Glucose Fasting 97 mg/dL (60-99); HDL Cholesterol 55 mg/dL (>40); LDL Cholesterol Calculated 104 mg/dL (<100); Potassium 4.4 mmol/L (3.3-5.1); Sodium 139 mmol/L (135-145); Total Protein 6.9 g/dL (6.5-8.0); Triglycerides 75 mg/dL (<150)
[2023-08-13 10:26] LABS: Vitamin D 25-OH Total 39.8 ng/mL (>30)
== END 2023-08-13 08:33 | disposition home or self-care (01) ==
LOC: HO.LAB 08:32
PROVIDERS: PCP Internal Medicine; Visit Provider Internal Medicine
DX: D72.829 Elevated white blood cell count, unspecified (principal); E13.9 Other specified diabetes mellitus without complications; E78.5 Hyperlipidemia, unspecified; E55.9 Vitamin D deficiency, unspecified
CPT/HCPCS: 36415; 80053; 80061; 82306; 85025

== ENCOUNTER 2023-08-14 10:05 | Outpatient (REF) | payer OTHER, SELFPAY | END 2023-08-14 10:06 | disposition home or self-care (01) | LOC: HO.LNP 10:05 | PROVIDERS: Visit Provider Internal Medicine | DX: E11.9 Type 2 diabetes mellitus without complications (principal) | CPT/HCPCS: 82570 ==

== ENCOUNTER 2023-09-24 14:12 | Outpatient (AMB) | payer OTHER, SELFPAY ==
[2023-09-24 14:18] VITALS: BP 140/82; PULSE 90; BMI 20.4
--- NOTE | 2023-09-24 14:18 | A.OFFVIS_ITS ---
Intake Vital Signs 09/24/23 14:18 Height 5 ft 6 in Weight 126 lb 5.198 oz BMI 20.4 BP 140/82 H Blood Pressure Location Rt brachial Position Sitting Pulse 90 Pulse Source Pulse Oximeter Intake Visit Reasons: DM/CONFIRMED Intake Note: Patient presents today to follow up on Type Diabetes Mellitus. Last Diabetic Eye exam: 10/29/2022 Last Podiatry Visit: 09/2023 Random Glucose: 119 mg/dl HgA1C:7.1% Client Onboarding Analyst Required: No Accompanied by: Self / Same As Patient Allergies No Known Allergies Allergy (Verified 09/24/23 14:34) HPI HPI Comments History of Present Illness Details This is a 43-year-old white male followed by endocrinology for management of MINA type 1. He is currently on Lantus 15 units and Novolog 5 units aC Glucometer download shows she is checking his point cares sporadically. Average glucose is 210 with range 121 to 372. 50% range with 50% hyperglycemia and no hypoglycemia Dexcom download shows avg glucose = 234 , 28 % in range , 31 % high and 40 % v renetta high and 0 % hypoglycemia . 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 Absence of acromegalic features. Neck exam reveals nl size thyroid about 15 gms. No thyroid nodules palpable. No carotid bruits present. Lungs CTA. Heart S1 S2, Reg R/R. No M/R/ G. Skin exam reveals absence of vitiligo or acanthosis nigricans. Abdominal exam reveals Soft NT/ND with NA BS. No organomegaly present. Extrem Other: Visual exam of foot performed. No ulcerations or open lesions. No onchomycosis, no callouses.Pulses 2 + distally. Sensation intact to monofilament exam. 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 Ideally, patient would benefit carbohydrate counting and he is learning so. He expressed interest in pump usage and may do this in the future . 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
[2023-09-24 14:35] LABS: Glucose, Whole Blood 119 mg/dL (60-115)
== END 2023-09-24 14:52 | disposition home or self-care (01) ==
PROVIDERS: PCP Internal Medicine; Visit Provider Internal Medicine Endocrinology, Diabetes & Metabolism
DX: E11.43 Type 2 diabetes mellitus with diabetic autonomic (poly)neuropathy (principal); E13.9 Other specified diabetes mellitus without complications
CPT/HCPCS: 99214

== ENCOUNTER → 2023-09-24 14:12 | Outpatient (BNVA) | payer OTHER, SELFPAY | PROVIDERS: PCP Internal Medicine; Visit Provider Internal Medicine Endocrinology, Diabetes & Metabolism | DX: E13.9 Other specified diabetes mellitus without complications (principal) | CPT/HCPCS: 82947; 83036; 99212 ==

== ENCOUNTER 2023-10-06 08:36 | Outpatient (AMB) | payer OTHER, SELFPAY ==
--- NOTE | 2023-10-06 09:09 | A.OFFVIS_ITS ---
Intake Intake Visit Reasons: DM Real Estate Office Manager Required: No Accompanied by: Self / Same As Patient Allergies No Known Allergies Allergy (Verified 09/24/23 14:34) HPI Comprehensive Diabetes Asmnt Most Recent Diabetes Results: Microalb/Creat Ratio TNP 08/14/23 Cholesterol 174 mg/dL (<200) 08/13/23 HDL Cholesterol 55 mg/dL (>40) 08/13/23 Triglycerides 75 mg/dL (<150) 08/13/23 Creatinine 0.93 mg/dL (0.5-1.4) 08/13/23 Blood Urea Nitrogen 29 mg/dL (9-16) H 08/13/23 Sodium 139 mmol/L (135-145) 08/13/23 Potassium 4.4 mmol/L (3.3-5.1) 08/13/23 Chloride 103 mmol/L (96-108) 08/13/23 Carbon Dioxide 27 mmol/L (22-29) 08/13/23 Calcium 9.5 mg/dL (8.4-10.2) 08/13/23 AST 34 U/L (5-37) 08/13/23 ALT 55 U/L (0-40) H 08/13/23 Total Protein 6.9 g/dL (6.5-8.0) 08/13/23 Albumin 4.2 g/dL (3.5-5.0) 08/13/23 [facility] Medical History Elevated cholesterol Diabetes Pancolitis Cough BPH (benign prostatic hyperplasia) Renal calculi Mild depression Osteopenia Anemia Elevated alkaline phosphatase level Insomnia Cerebral palsy GERD (gastroesophageal reflux disease) 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 checks BG freestyle Ivette 2 Downloaded meter today-yes Patient's average glucose for the past 14 days to 36 mg/dL Patient above target 75% Patient at target 24% Patient below target 1% Patient? reports glycemic control as: Fair Most recent Hgb A1C: 7.1% on 09/24/2023 Frequency of low BG: Occasional Low BG treatment: Fruit juice Frequency of high BG: Daily Does patient check Ketones? No Has pt been on a pump in the past? No Reviewed insulin pump basics today with Patient. Explained pros and cons of insulin pumps. Showed pt various pumps, infusion sets, and cgms currently available. Reviewed need to wear pump 24/7 and need to change infusion set every 3 days. Also stressed importance of frequent BG checks, 4x daily minimum or use pump that is integrated with CGM.? At this time patient wishes to postpone further discussions of insulin pump therapy Patient will follow-up Diabetes Education nurse after next appointment with Dr. 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
== END 2023-10-06 09:13 | disposition home or self-care (01) ==
PROVIDERS: PCP Internal Medicine; Visit Provider Registered Nurse Diabetes Educator
DX: E13.9 Other specified diabetes mellitus without complications (principal)

== ENCOUNTER → 2023-10-06 08:36 | Outpatient (BNVA) | payer OTHER, SELFPAY | PROVIDERS: PCP Internal Medicine; Visit Provider Registered Nurse Diabetes Educator | DX: E13.9 Other specified diabetes mellitus without complications (principal); E78.00 Pure hypercholesterolemia, unspecified | CPT/HCPCS: 99211 ==

== ENCOUNTER 2023-11-11 08:29 | Outpatient (AMB) | payer OTHER, SELFPAY ==
--- NOTE | 2023-11-11 08:33 | A.OFFVIS_ITS ---
Intake VS Expanded 11/11/23 09:02 Height 5 ft 6 in Weight 120 lb BMI 19.4 Comment Pt declined weight check, reports wt at aroun 120 lbs Intake Visit Reasons: MINA/CONFIRMED Allergies No Known Allergies Allergy (Verified 09/24/23 14:34) HPI Nutrition Presentation Details Pt presents for MNT follow up for MINA /Type 1 DM food frequency dairy: 3-4 serving/d fruits: once- twice/day fish: 1x/wk vegetables: 1-2 serving/d water: 16-24 oz /d ,milk 16-24 oz pastries: 0-1/d Pt reports having air fryer, makes smoothies Has assistance from [employer] to make meals/smoothies Pt did not bring gluc sensor reader to this appt. Most Recent Diabetes Results: Microalb/Creat Ratio TNP 08/14/23 Cholesterol 174 mg/dL (<200) 08/13/23 HDL Cholesterol 55 mg/dL (>40) 08/13/23 Triglycerides 75 mg/dL (<150) 08/13/23 Creatinine 0.93 mg/dL (0.5-1.4) 08/13/23 Blood Urea Nitrogen 29 mg/dL (9-16) H 08/13/23 Sodium 139 mmol/L (135-145) 08/13/23 Potassium 4.4 mmol/L (3.3-5.1) 08/13/23 Chloride 103 mmol/L (96-108) 08/13/23 Carbon Dioxide 27 mmol/L (22-29) 08/13/23 Calcium 9.5 mg/dL (8.4-10.2) 08/13/23 AST 34 U/L (5-37) 08/13/23 ALT 55 U/L (0-40) H 08/13/23 Total Protein 6.9 g/dL (6.5-8.0) 08/13/23 Albumin 4.2 g/dL (3.5-5.0) 08/13/23 [facility] Medical History Elevated cholesterol Diabetes Pancolitis Cough BPH (benign prostatic hyperplasia) Renal calculi Mild depression Osteopenia Anemia Elevated alkaline phosphatase level Insomnia Cerebral palsy GERD (gastroesophageal reflux disease) 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 (poly)neuropathy Plan: wt 121 lbs Est kcal needs as per MSJ: 1900 (40% carb, 30% protein/fat) Est fluid needs as per 30 ml/d: 1700 Est prot per day as per 1 g/kg bw: 55 g Recommend fiber intake : 8-10 g per day and gradually increase to 25-28 g per day for women and 35-38 g for men or as tolerated Recommend sodium intake per day : less than 2000 mg Educated patient on: ( R = reviewed V = verbalizes understanding N/R = needs review N/A = not applicable * Food sources of carbohydrate, adequate serving sizes and its role in various health conditions: R * Differences between complex carbohydrates a simple carbohydrates, role of fiber in diet: R * lean protein sources of foods and combination with vit C sources o ffoods, Reviewed * Differences between types of fats and role in diet (mono on saturated fat fatty acids, saturated fatty acids, trans fats): NR * Food sources of sodium in salt and healthy modifications for heart health in kidney health: NR * Vitamins and minerals: R * Healthy plate method concept: R V - * Physical activity: Benefits a precaution: R * Hypoglycemia protocol (rule of 15): R V Patient Instructions: Keep hydrated by choosing water, milk, soups Follow healthy plate method Include fish at least twice a week as an omega 3 fatty acids Coding Level of Care Code Nutr Indiv Subseq (78646) Diagnoses Diabetes mellitus with gastroparesis E11.43 Time Spent (min) 30
[2023-11-11 09:02] VITALS: BMI 19.4
== END 2023-11-11 09:14 | disposition home or self-care (01) ==
PROVIDERS: PCP Internal Medicine; Visit Provider Dietitian, Registered
DX: E11.43 Type 2 diabetes mellitus with diabetic autonomic (poly)neuropathy (principal)

== ENCOUNTER → 2023-11-11 08:29 | Outpatient (BNVA) | payer OTHER, SELFPAY | PROVIDERS: PCP Internal Medicine; Visit Provider Dietitian, Registered | DX: E13.43 Other specified diabetes mellitus with diabetic autonomic (poly)neuropathy (principal); K31.84 Gastroparesis; Z71.3 Dietary counseling and surveillance | CPT/HCPCS: 97803 ==

== ENCOUNTER 2023-11-12 07:35 | Outpatient (REF) | payer OTHER, SELFPAY | END 2023-11-12 07:36 | disposition home or self-care (01) | LOC: HO.US 07:35 | PROVIDERS: PCP Internal Medicine; Visit Provider Urology | DX: N20.0 Calculus of kidney (principal) | CPT/HCPCS: 76775 ==

== ENCOUNTER 2023-12-02 09:31 | Outpatient (AMB) | payer OTHER, SELFPAY ==
[2023-12-02 09:35] VITALS: BP 130/78; BMI 18.6
--- NOTE | 2023-12-02 09:35 | MHC.PC.OV ---
Vital Signs 12/02/23 09:35 Height 5 ft 6 in Weight 115 lb BMI 18.6 BP 130/78 Blood Pressure Location Lt brachial Position Sitting Intake Visit Reasons: dm Intake Note: Patient here for a follow up DM Replant[employer] Crewman Required: No Accompanied by: Self / Same As Patient Allergies No Known Allergies Allergy (Verified 12/02/23 09:56) Medication List - Last Reconciled 12/02/23 by Isabell Young MD [ankle wraps As directed] bisacodyl (Dulcolax (bisacodyl)) 20 mg (4 x 5 mg) PO ONCE 1 day blood sugar diagnostic (FreeStyle Test strips) Use 1 test strip once a day blood-glucose meter (FreeStyle Lite Meter kit) As directed blood-glucose sensor (SincroPool G7 Sensor device) As directed change every 10 days chlorpromazine 25 mg PO DAILY PRN 2 days cholecalciferol (vitamin D3) 50 mcg PO DAILY 90 days [crutch tips As directed] cyclobenzaprine 5 mg PO TID PRN 7 days diphenhydramine HCl (Benadryl) 25 mg PO TID PRN 7 days disposable gloves As directed [extra depth diabetic shoes with 3 pair custom .Routeheat-molded multi-density innersoles] glucagon 3 mg/actuation (Baqsimi) mg intranasal glucagon 3 mg/actuation (Baqsimi) 3 mg intranasal ONCE insulin aspart U-100 (Novolog FlexPen U-100 Insulin aspart) 5 units (0.05 mL) subcut TID insulin glargine (Lantus Solostar U-100 Insulin) 15 units (0.15 mL) subcut DAILY lidocaine 5% (Lidoderm) 1 patch topical DAILY metoclopramide HCl 5 mg PO TIDAC 90 days omeprazole 40 mg PO BID pen needle, diabetic (Comfort EZ Pen [place]) As directed injects 4 X/day polyethylene glycol 3350 (Miralax) 238 grams PO ONCE pyridoxine (vitamin B6) 100 mg PO DAILY 90 days rosuvastatin 5 mg PO DAILY 90 days [wheelchair As directed] Tobacco use date assessed: 12/02/23 Dental Screening Dental Screen Date: 12/02/23 Did you have a dental visit in the last 12 months?: Yes Did you have a dental problem in the last 6 months where you did not have access to dental care?: No Was dental information given to patient?: Patient has dentist HPI HPI Comments History of Present Illness Details This is a 43-year-old male with MINA managed as type 2 diabetes, gastroparesis, hyperlipidemia, mild depression, cerebral palsy and low vitamin-D that comes today for follow-up on his conditions. Has cerebral palsy and uses crutches and ankle wrapped to walk. Alone in the room. Last A1c was very close to goal being 7.1. He follows with endocrinology. Gastroparesis has been stable with metoclopramide and he follows with Gastroenterology. Last LDL was not on goal and this will be repeated in the next 4 months. Mild depression is in remission and he declines the use of medication. On vitamin-D supplements for his low vitamin-D. No chest pain or shortness of breath. 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 have visiting nurse or other home services: Yes ([employer]) Alcohol intake: former Comment: mod fall risk Patient Tobacco Use Status: Former Tobacco user Quit Date: age 16 Tobacco use type: Cigarette e-Cigarette/Vaping Use: Never Used Second Hand Smoke Exposure: No Substance Use Type: Marijuana service: No Current occupational status: disabled Cognitive needs: Yes Hearing needs: No Vision needs: Yes Questionnaire PHQ-9 Over the last 2 weeks, how often have you been bothered by any of the following problems? 1. Little interest or pleasure in doing things: not at all 2. Feeling down, depressed, or hopeless: not at all 3. Trouble falling or staying asleep, or sleeping too much: not at all 4. Feeling tired or having little energy: not at all 5. Poor appetite or overeating: not at all 6. Feeling bad about yourself - or that you are a failure or have let yourself or your family down: not at all 7. Trouble concentrating on things, such as reading the newspaper or watching television: not at all 8. Moving or speaking so slowly that other people could have noticed. Or the opposite - being so fidgety or restless that you have been moving around a lot more than usual: not at all 9. Thoughts that you would be better off or of hurting yourself in some way: not at all Total score: 0 Depression Screening Interpretation: Negative Depression Screening Done: Yes 67215 - PHQ-9 Billing: Yes Source: Developed by Drs. Jabari Mckeon, Argentina Staton, Ernesto Estrada and colleagues, with an educational joesph from [employer]. Thrive Questionnaire Date Thrive assessed: 12/02/23 I am a: Patient What is your living situation today?: I have a steady place to live Within the past 12 months, did the food you bought not last and you didn't have the money to get more?: Never true Within the past 12 months, did you worry whether your food would run out before you got money to buy more?: Never true Do you have trouble paying for medicines?: No Do you have trouble getting transportation to medical appointments?: No Do you have trouble paying your heating and electricity bill?: No Do you have trouble taking care of your child, family member or friend?: No Do you have trouble with day-to-day activities such as bathing, preparing meals, shopping, managing finances, etc.?: No Are you currently unemployed and looking for a job?: No Are you interested in more education?: No Please select the resources that you would like help with: None Currently or been in a relationship where the following occur: no concerns reported THRIVE Score: 0 AUDIT C Alcohol Use Questionnaire (AUDIT-C) 1. How often do you have a drink containing alcohol?: Monthly or less 2. How many drinks containing alcohol do you have on a typical day when you are drinking?: 1 or 2 3. How often do you have six or more drinks on one occasion?: Never Total Score: 1 Score Reviewed/Action Taken: No AUSTYN-7 AMB Questionnaire AUSTYN-7 Date AUSTYN - 7 assessed: 12/02/23 Feeling nervous, anxious, or on edge: 0 = Not at all Not being able to stop or control worryin = Not at all Worrying too much about different things: 0 = Not at all Trouble relaxin = Not at all Being so restless that it is hard to sit still: 0 = Not at all Becoming easily annoyed or irritable: 0 = Not at all Feeling afraid as if something awful might happen: 0 = Not at all Total AUSTYN-7 score (0-4 normal; 5-9 mild; 10-14 moderate; 15-21 severe): 0 Source: Developed by Drs. Jabari Mckeon, Argentina Staton, Ernesto Estrada and colleagues, with an educational joesph from [employer]. AUSTYN-7 Assessment Billing AUSTYN-7 Assessment Tool: AUSTYN-7 Assessment 71538 Review of Systems Const All systems reviewed & are unremarkable except as noted in HPI and below Eyes Reports no additional complaints, Denies change in vision and Denies other visual disturbances Card Denies chest pain at rest, Denies chest pain with activity, Denies edema, Denies irregular heart rhythm, Denies claudication, Denies dyspnea, Denies dyspnea on exertion, Denies orthopnea, Denies paroxysmal nocturnal dyspnea and Denies slow heart rate Resp Denies cough, Denies dyspnea and Denies dyspnea on exertion GI Denies abdominal pain, Denies change in bowel habits, Denies excessive flatus, Denies nausea and Denies vomiting Denies urinary hesitancy, Denies urinary incontinence and Denies urinary urgency Musc Denies abnormal gait, Denies atrophy, Denies deformity and Denies limited range of motion Skin/Breast Denies bleeding lesions, Denies changing lesions and Denies rash Neuro Denies abnormal gait, Denies behavioral changes and Denies lack of coordination Psych Denies behavioral changes Physical exam (Primary Care) Vital Signs: Last Vital Signs BP 130/78 12/02/23 09:35 BMI result Body Mass Index 18.6 Tobacco/Smoking Status: Tobacco use Status Tobacco use date assessed 12/02/23 12/02/23 09:47 Patient Tobacco Use Status Former Tobacco user 12/02/23 09:39 Tobacco use type Cigarette 12/02/23 09:39 e-Cigarette/Vaping Use Never Used 12/02/23 09:39 PHQ-9: PHQ-9 Score PHQ-9: Total score 0 12/02/23 10:16 Depression Screening Interpretation: Negative Thrive Assessment: Date of Thrive Assessment Date Thrive assessed 12/02/23 12/02/23 09:47 Currently or been in a relationship where the following occur: no concerns reported Const Limitations: crutches Eyes General: appearance normal, both eyes and all related structures Eyelids: Yes eyelids normal Conjunctivae: conjunctivae normal Neck Neck: Yes normal visual inspection and Yes supple Resp Effort & Inspection: normal respiratory effort Auscultation: clear to auscultation bilaterally Cardio Jugular venous distension: no JVD Rate: regular rate Rhythm: regular rhythm Heart sounds: S1 normal heart sound present and S2 normal heart sound present Neuro Other: 0/5 strength in bilateral lower limbs Psych Appearance: grossly normal Office Procedures Flu Questionnaire Does the patient have a severe egg allergy?: No Immunizations flu vacc [id number] 6mos up(PF) 60 mcg(15 mcgx4)/0.5 mL IM syringe Performing Provider: Isabell Young MD [facility] Documented (not given) by: ANABEL Santiago on 12/02/23 10:16 Reason Not Given: Patient Refused Assessment and Plan Assessment & Plan (1) 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 A1c goal is equal or less than 7%. Follow-up with endocrinology. (2) Cerebral palsy: Code(s): G80.9 - Cerebral palsy, unspecified Qualifiers: Cerebral palsy type: spastic diplegic Qualified Code(s): G80.1 - Spastic diplegic cerebral palsy Plan: Continue the use of crutches and ankle wraps to move. (3) Hyperlipidemia LDL goal <70: Code(s): E78.5 - Hyperlipidemia, unspecified Plan: Continue statins. LDL goal is less than 70. (4) Gastroparesis: Code(s): K31.84 - Gastroparesis Plan: Continue metoclopramide. Follow-up with Gastroenterology. (5) Mild depression: Code(s): F32.0 - Major depressive disorder, single episode, mild Plan: In remission. (6) Hypovitaminosis D: Code(s): E55.9 - Vitamin D deficiency, unspecified Plan: Continue vitamin-D supplements. Orders: Orders Microalbumin, Random (w Creat) 4 Months E11.9 - Type 2 diabetes mellitus without complications Vitamin D 25-OH Total 4 Months E55.9 - Vitamin D deficiency, unspecified Comprehensive [place]. 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
== END 2023-12-02 10:06 | disposition home or self-care (01) ==
PROVIDERS: PCP Internal Medicine; Visit Provider Internal Medicine
DX: E13.9 Other specified diabetes mellitus without complications (principal); G80.1 Spastic diplegic cerebral palsy; F32.0 Major depressive disorder, single episode, mild; E78.5 Hyperlipidemia, unspecified; K31.84 Gastroparesis; E55.9 Vitamin D deficiency, unspecified
CPT/HCPCS: 99214

== ENCOUNTER 2023-12-09 09:11 | Outpatient (AMB) | payer OTHER, SELFPAY ==
--- NOTE | 2023-12-09 09:21 | MHC.OFFVIS ---
Intake Intake Visit Reasons: 6 month follow up/ US(set) Intake Note: Patient presents for follow up visit for kidney stone, kidney cyst, and ultrasound results Last Imagin11/12/23 Urology Medications: Vitamin B6 Blood Thinner: None Nurse Office Required: No Accompanied by: Self / Same As Patient Allergies No Known Allergies Allergy (Verified 12/09/23 09:44) Medication List - Last Reconciled 12/09/23 by TAD Mitchell [ankle wraps As directed] bisacodyl (Dulcolax (bisacodyl)) 20 mg (4 x 5 mg) PO ONCE 1 day blood sugar diagnostic (FreeStyle Test strips) Use 1 test strip once a day blood-glucose meter (FreeStyle Lite Meter kit) As directed blood-glucose sensor ([employer] G7 Sensor device) As directed change every 10 days chlorpromazine 25 mg PO DAILY PRN 2 days cholecalciferol (vitamin D3) 50 mcg PO DAILY 90 days [crutch tips As directed] cyclobenzaprine 5 mg PO TID PRN 7 days diphenhydramine HCl (Benadryl) 25 mg PO TID PRN 7 days disposable gloves As directed [extra depth diabetic shoes with 3 pair custom .Routeheat-molded multi-density innersoles] glucagon 3 mg/actuation (Baqsimi) mg intranasal glucagon 3 mg/actuation (Baqsimi) 3 mg intranasal ONCE insulin aspart U-100 (Novolog FlexPen U-100 Insulin aspart) 5 units (0.05 mL) subcut TID insulin glargine (Lantus Solostar U-100 Insulin) 15 units (0.15 mL) subcut DAILY lidocaine 5% (Lidoderm) 1 patch topical DAILY metoclopramide HCl 5 mg PO TIDAC 90 days omeprazole 40 mg PO BID pen needle, diabetic (BD Ultra-Fine Micro Pen Needle) USE FOR INJECTIONS FOUR TIMES DAILY polyethylene glycol 3350 (Miralax) 238 grams PO ONCE pyridoxine (vitamin B6) 100 mg PO DAILY 90 days rosuvastatin 5 mg PO DAILY 90 days [wheelchair As directed] HPI HPI Comments History of Present Illness Details Wilman is a very pleasant 43-year-old male patient of Dr. Borrego. He has a past medical history of hypercholesteremia, diabetes, renal calculi, mild depression, osteopenia, anemia, insomnia, cerebral palsy, and GERD. He presents to the office today for follow-up of his renal cyst and renal stones. In discussion with the patient today reports to be doing and feeling well. Recent renal imaging results reviewed with the patient today. Right kidney with no calculi or lesions. There are simple cyst the largest at the upper pole measuring 4.0 cm, at the interpolar aspect 1.9 cm, and at the lower pole 1.4 cm. These require no imaging follow-up per radiology report. Left kidney with no calculi or hydronephrosis. There are simple cyst the largest at the interpolar aspect measuring 1.6 cm and at the lower pole 2.6 cm. These require no imaging follow-up per radiology report. When asked he currently denies any bothersome urinary issues or concerns. He denies urinary urgency, urinary frequency, incontinence, nocturia, hematuria, dysuria, foul smelling urine, changes to urinary stream, flank pain, fever, and or chills. He is happy with his current voiding parameters. He discusses following up with podiatry later today. He reports to be drinking plenty of water daily. Unable to obtain urine for urinalysis today as patient unable to void. He otherwise offers no other issues or concerns at this time. 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) Alcohol intake: former Comment: mod fall risk Patient Tobacco Use Status: Former Tobacco user Quit Date: age 16 Tobacco use type: Cigarette e-Cigarette/Vaping Use: Never Used Second Hand Smoke Exposure: No Substance Use Type: Marijuana service: No Current occupational status: disabled Cognitive needs: Yes Hearing needs: No Vision needs: Yes Review of Systems Eyes Reports no additional complaints ENT Reports no additional complaints Card Reports as per HPI Resp Reports no additional complaints GI Reports as per HPI Reports as per [facility] Musc Reports as per HPI Neuro Reports as per HPI Psych Reports as per HPI Endo Reports as per HPI Physical Exam Const General: cooperative, healthy appearing, comfortable, no acute distress, well developed, alert and awake Nutritional Appearance: thin Orientation/consciousness: patient oriented x3 Limitations: crutches HEENT Head: Yes normal to inspection, Yes normocephalic and Yes atraumatic Ears: hearing grossly normal bilaterally Eyes General: appearance normal, both eyes and all related structures Neck Neck: Yes normal visual inspection and Yes trachea midline Chest Chest palpation & inspection: normal inspection of the chest Resp Effort & Inspection: normal respiratory effort and able to speak in complete sentences Cardio Rate: regular rate GI Inspection: Yes normal to inspection General: Yes no CVA tenderness Back/Spine/Pelvis Back: no CVA tenderness Skin General skin exam: no rashes or lesions noted Neuro General: patient oriented x3 Psych Appearance: grossly normal and well kempt Mental Status: mental status grossly normal Speech and movement: Normal speech and movement present and Clear speech present Affect: normal affect Attitude: cooperative Thought process: Normal thought process present Thought content: Normal thought content present Insight: Fair insight present (Psych) Judgement: Fair judgement present (Psych) Results Reviewed Results Reviewed: Date of Service: 11/12/23 EXAMINATION: US RETROPERITONEAL LIMITED (RENAL ONLY) FINDINGS: RIGHT KIDNEY: 10.1 x 5.5 x 5.4 cm (SAG x AP x TRV). The kidney is normal in size, contour, and echogenicity. Renal cortical thickness is normal. There are echogenic foci which do not meet formal ultrasound criteria for calculi. No definite renal calculi or hydronephrosis. There are simple cysts, the largest at the upper pole measuring 4.0 cm, at the interpolar aspect 1.9 cm, and at the lower pole 1.4 cm. These require no imaging follow-up. LEFT KIDNEY: 11.4 x 6.3 x 5.0 cm (SAG x AP x TRV). The kidney is normal in size, contour, and echogenicity. Renal cortical thickness is normal. There are echogenic foci which do not meet formal ultrasound criteria for calculi. No definite renal calculi or hydronephrosis. There are simple cysts, the largest at the interpolar aspect measuring 1.6 cm and at the lower pole 2.6 cm. These require no imaging follow-up. IMPRESSION: No renal calculus or hydronephrosis is seen bilaterally Assessment & Plan Assessment & Plan (1) Renal calculi: Code(s): N20.0 - Calculus of kidney (2) Renal cyst: Code(s): N28.1 - Cyst of kidney, acquired Plan Unable to obtain urine for urinalysis as patient unable to void. Recent renal imaging results reviewed with the patient today; as noted above; stable Will continue with surveillance monitoring Discussed, educated, and instructed to drink water daily. He currently denies any bothersome urinary issues or concerns. He is happy with his current voiding parameters. Continue vitamin B6 as discussed and prescribed; Renal ultrasound in 6 months. Follow-up in 6 months with imaging to be completed prior; or sooner with any issues, concerns, and or questions. Orders: Orders US renal BI 6 Months N20.0 - Calculus of kidney, N28.1 - Cyst of kidney, acquired AMB Urinalysis Automated Today Z13.9 - Encounter for screening, unspecified Patient Instructions: The patient had an opportunity to ask questions regarding the treatment plan. All questions were answered. Physical exam, labs, and imaging were discussed and reviewed in detail. As well as risks, benefits, and discussion of treatment choices. No major barriers to understanding were identified. The patient expressed understanding and agreement with the above treatment plan. The patient was made aware they should contact our office by phone for worsening of their current condition, the appearance of new symptoms, or with any questions or concerns. Compliance is encouraged with any medications and follow up testing that is ordered. It is a privilege to be allowed the opportunity to participate in? your urological care.? Again, if you have any questions or concerns If you have any questions or concerns please do not hesitate to contact me. The office is [phone]. This note is constructed using voice recognition software. While every effort has been made to ensure accuracy aircraft quality control inspector errors may have been included. Yours sincerely, Kaila Cavazos, [employer] BU[employer]ER-[employer] Coding Level of Care Code Est Pt Level 3 (49258) Diagnoses Renal calculi N20.0 Renal cyst N28.1
== END 2023-12-09 09:45 | disposition home or self-care (01) ==
PROVIDERS: PCP Internal Medicine; Visit Provider Nurse Practitioner Family
DX: N20.0 Calculus of kidney (principal); N28.1 Cyst of kidney, acquired
CPT/HCPCS: 99213

== ENCOUNTER → 2023-12-09 09:11 | Outpatient (BNVA) | payer OTHER, SELFPAY | PROVIDERS: PCP Internal Medicine; Visit Provider Nurse Practitioner Family | DX: N28.1 Cyst of kidney, acquired (principal); Z87.442 Personal history of urinary calculi | CPT/HCPCS: 99212 ==

== ENCOUNTER 2024-01-15 14:20 | Outpatient (AMB) | payer OTHER, SELFPAY ==
--- NOTE | 2024-01-15 14:21 | MHC.OFFVIS ---
Intake Vital Signs 01/15/24 14:22 Height 5 ft 6 in Weight 117 lb 15.157 oz BMI 19.0 BP 114/78 Blood Pressure Location Lt brachial Position Sitting Pulse 101 H Pulse Source Pulse Oximeter Intake Visit Reasons: f/u Type 1 DM MINA-confirmed Intake Note: Patient presents today to follow up on D2MT MINA. Last Diabetic Eye exam: 10/2023 Last Podiatry Visit: 09/2023 Random Glucose: 255 mg/dl HgA1c: 11.0% Store Coordinator Required: No Accompanied by: Self / Same As Patient Allergies No Known Allergies Allergy (Verified 01/15/24 14:27) HPI HPI Comments History of Present Illness Details This is a 44-year-old white male followed by endocrinology for management of MINA type 1. 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 Absence of acromegalic features. Neck exam reveals nl size thyroid about 15 gms. No thyroid nodules palpable. No carotid bruits present. Lungs CTA. Heart S1 S2, Reg R/R. No M/R/ G. Skin exam reveals absence of vitiligo or acanthosis nigricans. Abdominal exam reveals Soft NT/ND with NA BS. No organomegaly present. Extrem Other: Visual exam of foot performed. No ulcerations or open lesions. No onchomycosis, no callouses.Pulses 2 + distally. Sensation intact to monofilament exam. 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 Can not make any changes to the regimen because of lack of data today. Did go over with the patient in detail correlation of poor glycemic control to development of progression of complications . Ideally, patient would benefit carbohydrate counting and he is learning so. He expressed interest in pump usage and may do this in the future . 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
[2024-01-15 14:22] VITALS: BP 114/78; PULSE 101; BMI 19.0
[2024-01-15 14:37] LABS: Glucose, Whole Blood 255 mg/dL (60-115)
== END 2024-01-15 14:43 | disposition home or self-care (01) ==
PROVIDERS: PCP Internal Medicine; Visit Provider Internal Medicine Endocrinology, Diabetes & Metabolism
DX: Z13.9 Encounter for screening, unspecified (principal); E11.43 Type 2 diabetes mellitus with diabetic autonomic (poly)neuropathy; E13.9 Other specified diabetes mellitus without complications
CPT/HCPCS: 99214

== ENCOUNTER → 2024-01-15 14:20 | Outpatient (BNVA) | payer OTHER, SELFPAY | PROVIDERS: PCP Internal Medicine; Visit Provider Internal Medicine Endocrinology, Diabetes & Metabolism | DX: E13.9 Other specified diabetes mellitus without complications (principal); Z79.4 Long term (current) use of insulin | CPT/HCPCS: 82947; 83036; 99212 ==

== ENCOUNTER 2024-02-24 07:16 | Day surgery (SDC) | payer OTHER, SELFPAY ==
[2024-02-19 11:54] VITALS: BMI 19.0
[2024-02-24 08:47] VITALS: BP 135/83; PULSE 69; RESP 16; TEMP 37.1; O2SAT 98; BMI 18.6
[2024-02-24 08:56] LABS: Glucose, Whole Blood 198 mg/dL (60-115)
--- NOTE | 2024-02-24 08:59 | P.CONAN_ITS ---
[facility] Active Problems Active Problems: All Active Problems Hypovitaminosis D (Acute) Physical exam (Acute) Leukocytosis (Acute) Diabetes mellitus with gastroparesis (Acute) COVID-19 (Acute) Gastroparesis (Acute) Hypokalemia (Acute) Nausea & vomiting (Acute) Cannabinoid hyperemesis syndrome (Acute) Acute kidney injury (Acute) Diabetic keto-acidosis (Acute) Colitis (Acute) Hyperlipidemia LDL goal <70 (Acute) Lumbar muscle pain (Acute) Renal calculi (Acute) Renal cyst (Acute) Spastic cerebral palsy (Acute) Hospital discharge follow-up (Acute) Pancolitis (Acute) Cerebral palsy (Acute) Cough (Acute) BPH (benign prostatic hyperplasia) (Acute) Renal calculi (Acute) Mild depression (Acute) 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 Comment: mod fall risk Patient Tobacco Use Status: Never used Tobacco Tobacco use type: Cigarette e-Cigarette/Vaping Use: Never Used Second Hand Smoke Exposure: No Use of substances other than those prescribed or required for medical reasons: Yes Substance Use Type: Marijuana Substance Use Frequency: Daily Are you DNR?: No Advance Directives: No Advance Directives Information Provided: Yes service: No Current occupational status: disabled Cognitive needs: Yes Hearing needs: No Vision needs: Yes Meds Allergies Allergy/AdvReac Type Severity Reaction Status Date / Time No Known Allergies Allergy Verified 02/24/24 08:44 Active Medications: Current Medications Lactated Ringer's (Lr) 1,000 mls @ 80 mls/hr IVCONT .[id number] BOBO Home Medications ?Medication ?Instructions ?Recorded ?Confirmed ?Last Taken ?Type extra depth diabetic shoes with 3 .Route 08/27/22 12/09/23 Unknown History pair custom Exam Height,Weight and Vital Signs: Height 5 ft 6 in Weight 52.163 kg Last Vital Signs Temp 98.7 F 02/24/24 08:47 Pulse 69 02/24/24 08:47 Resp 16 02/24/24 08:47 BP 135/83 02/24/24 08:47 Pulse Ox 98 02/24/24 08:47 O2 Del Method Room Air 02/24/24 08:47 Pertinent Lab Results Pertinent Lab Results: Laboratory Tests 02/24/24 08:52 POC Glucose 198 H Airway Mallampati Class: I TM Dist: >3cm Neck ROM: Full Assessment and Plan Assessment Anesthesia Assessment: Anesthesia Plan Discussed and Chart Reviewed Final Anesthetic Review Family History of Problems with Anesthesia: No History of Problems with Anesthesia: No NPO: Yes ASA Class: III Final Preanesthetic Review: No Changes in Pt Med Stat, Meds/Allgs Chart Reviewed, Consent Obtained/Reviewed and Anes Risks/Benef Reviewed Patient Risk: Intermediate Procedure Risk: Low Anesthetic Plan Anesthetic Plan: TIVA Disposition: Standard PACU
--- NOTE | 2024-02-24 09:04 | MHC.SHP ---
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), managed as type 2) History of Previous Operations: Relevant previous surgery/procedure and date(s) ( History of surgery on lower extremity Hx of foot surgery Hx of esophagitis History of esophagogastroduodenoscopy (EGD)) Allergies: Allergies Allergy/AdvReac Type Severity Reaction Status Date / Time No Known Allergies Allergy Verified 02/24/24 08:44 Review of Systems Sugical H&P ROS: Negative: Constitution, Cardiovascular, Respiratory, Neurological, Psychiatric, Hem-Onc, Allergic/Immunologic, Gastrointestinal, Genitourinary, Musculoskeletal, Integumentary, Endocrine and Eyes/Ears/Nose/Throat Exam Surgical H&P Exam: Normal: HEENT, Normal: Heart, Normal: Lungs, Normal: Extremities, Normal: Abdomen and Normal: Skin and Significant Findings: Neurological (reduced power legs) Plan Diagnosis/Plan: Unchanged I have reviewed the history and physical and performed a pertinent physical examination on my patient. No changes have occurred unless specified. colonoscopy for screening, average risk Time Spent With Patient Time: Total time managing care of this patient today ____ minutes.
[2024-02-24] MEDS: Lactated Ringers 1,000 ML 80 ML IVCONT (09:05)
--- NOTE | 2024-02-24 09:38 | P.OP_ITS ---
Operative Note Operative Note Date of Service: 02/24/24 Narrative: Operative Information Procedure Description: Colonoscopy Indication: screening Anesthesia: MAC COLONOSCOPY Instrument: Olympus variable stiffness pediatric scope 190L Colonoscopy Monitoring: Vital signs and clinical assessment, continuous EKG monitoring, Pulse oximetry, Carbon Dioxide monitoring and blood pressure monitoring were done throughout the procedure. Colon withdrawal time was 8 minutes. Procedure: The patient was placed in the left lateral decubitis position and pre-procedure medications were administered. After a digital rectal examination of the ano-rectum, the video colonoscope was inserted into the rectum and advanced through the colon to the cecum/TI. The colonoscope was slowly withdrawn in a retrograde panoramic fashion and the colon mucosa was carefully examined including a retroflexed view of the rectum. Findings and interventions are described below. Procedure Difficulty: easy Findings: Terminal Ileum-normal Cecum:normal Ascending Colon: 4-6 mm sessile polyp removed with cold forceps, few diverticula noted Transverse Colon -normal Descending Colon:normal Sigmoid Colon: moderate diverticulosis Rectum: Retroflexion with small internal hemorrhoids seen, grade I Anorectum - normal Intervention: cold forceps Colon preparation: [place] Bowel Preparation Scale Right colon; 2 Transverse colon: 2 Left colon; 2 (0 = Unprepared colon segment with mucosa not seen due to solid stool that cannot be cleared. 1 = Portion of mucosa of the colon segment seen, but other areas of the colon segment not well seen due to staining, residual stool and/or opaque liquid. 2 = Minor amount of residual staining, small fragments of stool and/or opaque liquid, but mucosa of colon segment seen well. 3 = Entire mucosa of colon segment seen well with no residual staining, small fragments of stool or opaque liquid) Impression and Post Procedure Diagnosis: diverticulosis colon polyp internal hemorrhoids Plan: High fiber diet leaflet Avoid straining at stool, epsom salts and sitz bath, anusol supps or cream Repeat Colonoscopy in 5-7 years due to adenomatous appearing polyp or earlier if clinically indicated Above findings were reviewed with the patient and relevant handouts were provided if indicated.
[2024-02-24 10:15] VITALS: BP 106/64; PULSE 81; RESP 16; TEMP 36.6; O2SAT 98
[2024-02-24 10:30] VITALS: BP 110/73; PULSE 73; RESP 16; O2SAT 100
[2024-02-24 10:45] VITALS: BP 139/85; PULSE 67; RESP 16; TEMP 36.2; O2SAT 99
[2024-02-24 10:55] VITALS: BP 140/83; PULSE 62; RESP 16; O2SAT 99
== END 2024-02-24 11:32 | disposition home or self-care (01) ==
PROVIDERS: PCP Internal Medicine; Visit Provider Internal Medicine Gastroenterology
PROC: 0DJD8ZZ Inspection of Lower Intestinal Tract, Via Natural or Artificial Opening Endoscopic (ICD-10-PCS; CPT 45378; principal; 2024-02-24 10:00)
DX: Z12.11 Encounter for screening for malignant neoplasm of colon (principal); D12.2 Benign neoplasm of ascending colon; K57.30 Diverticulosis of large intestine without perforation or abscess without bleeding; K64.0 First degree hemorrhoids; E11.9 Type 2 diabetes mellitus without complications; G80.9 Cerebral palsy, unspecified
CPT/HCPCS: 45380; 82947; 88305

== ENCOUNTER → 2024-02-24 07:16 | Outpatient (BNV) | payer OTHER, SELFPAY | PROVIDERS: PCP Internal Medicine; Visit Provider Internal Medicine Gastroenterology | DX: Z12.11 Encounter for screening for malignant neoplasm of colon (principal); D12.2 Benign neoplasm of ascending colon; K64.0 First degree hemorrhoids | CPT/HCPCS: 45378 ==

== ENCOUNTER 2024-04-01 09:41 | Outpatient (AMB) | payer OTHER, SELFPAY ==
--- NOTE | 2024-04-01 09:42 | MHC.PC.OV ---
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: No Accompanied by: Self / Same As Patient Allergies No Known Allergies Allergy (Verified 04/01/24 10:01) Medication List - Last Reconciled 04/01/24 by Isabell Young MD [ankle wraps As directed] blood sugar diagnostic (FreeStyle Test strips) Use 1 test strip once a day blood-glucose meter (FreeStyle Lite Meter kit) As directed blood-glucose sensor (Groupsite G7 Sensor device) USE DIRECTED, CHANGE SENSOR EVERY 10 DAYS chlorpromazine 25 mg PO DAILY PRN 2 days cholecalciferol (vitamin D3) 50 mcg PO DAILY 90 days [crutch tips As directed] cyclobenzaprine 5 mg PO TID PRN 7 days disposable gloves As directed [extra depth diabetic shoes with 3 pair custom .Routeheat-molded multi-density innersoles] glucagon 3 mg/actuation (Baqsimi) 3 mg intranasal ONCE insulin aspart U-100 (Novolog FlexPen U-100 Insulin aspart) 5 units (0.05 mL) subcut TID insulin glargine (Lantus Solostar U-100 Insulin) 15 units (0.15 mL) subcut DAILY lidocaine 5% (Lidoderm) 1 patch topical DAILY omeprazole 40 mg PO BID pen needle, diabetic (BD Ultra-Fine Micro Pen Needle) USE FOR INJECTIONS FOUR TIMES DAILY pyridoxine (vitamin B6) 100 mg PO DAILY 90 days rosuvastatin 5 mg PO DAILY 90 days [wheelchair As directed] Tobacco use date assessed: 12/02/23 Dental Screening Dental Screen Date: 12/02/23 HPI HPI Comments History of Present Illness Details This is a 44-year-old male with spastic cerebral palsy, 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 Use crutches due to no range of motion in lower limb secondary to see rule out palsy. Last A1c was very elevated and he stopped taking insulin in December 2023. I recommend to restarted. He wants a 2nd opinion in endocrinology and I will refer him to [facility] in [place]. Gastroparesis stable with omeprazole and he follows with Gastroenterology. Last colonoscopy was February 2024 showing polyps and next colonoscopy will be in 5 years. Last LDL was not on goal and this will be repeated. Has mild major depression that is in remission. 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 have visiting nurse or other home services: Yes ([employer]PER[employer]) Alcohol intake: former Patient Tobacco Use Status: Never used Tobacco e-Cigarette/Vaping Use: Never Used Second Hand Smoke Exposure: No Substance Use Type: Marijuana service: No Current occupational status: disabled Cognitive needs: Yes Hearing needs: No Vision needs: Yes Questionnaire Thrive Questionnaire Date Thrive assessed: 12/02/23 AUSTYN-7 AMB Questionnaire AUSTYN-7 Date AUSTYN - 7 assessed: 12/02/23 Source: Developed by Drs. Jabari Mckeon, Argentina Staton, Ernesto Estrada and colleagues, with an educational joesph from [employer]. Review of Systems Const All systems reviewed & are unremarkable except as noted in HPI and below Card Denies chest pain at rest, Denies chest pain with activity, Denies edema, Denies irregular heart rhythm, Denies claudication, Denies dyspnea, Denies dyspnea on exertion, Denies orthopnea, Denies paroxysmal nocturnal dyspnea and Denies slow heart rate Resp Denies cough, Denies dyspnea and Denies dyspnea on exertion Physical exam (Primary Care) Vital Signs: Last Vital Signs BP 136/82 04/01/24 09:43 BMI result Body Mass Index 17.6 Tobacco/Smoking Status: Tobacco use Status Tobacco use date assessed 12/02/23 04/01/24 09:49 Patient Tobacco Use Status Never used Tobacco 04/01/24 09:49 Tobacco use type 04/01/24 09:49 e-Cigarette/Vaping Use Never Used 04/01/24 09:49 Thrive Assessment: Date of Thrive Assessment Date Thrive assessed 12/02/23 04/01/24 09:49 Const Limitations: crutches Resp Effort & Inspection: normal respiratory effort Auscultation: clear to auscultation bilaterally Cardio Jugular venous distension: no JVD Rate: regular rate Rhythm: regular rhythm Heart sounds: S1 normal heart sound present and S2 normal heart sound present Assessment and Plan Assessment & Plan (1) 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 A1c goal is equal or less than 7%. Referred to another harnessmaker. (2) Diabetes mellitus with gastroparesis: Code(s): E11.43 - Type 2 diabetes mellitus with diabetic autonomic (poly)neuropathy Plan: Continue PPIs and follow-up with Gastroenterology. (3) Spastic cerebral palsy: Code(s): G80.1 - Spastic diplegic cerebral palsy Plan: Continue crutches. (4) Hyperlipidemia LDL goal <70: Code(s): E78.5 - Hyperlipidemia, unspecified Plan: Continue statins. LDL goal is less than 70. (5) Mild depression: Code(s): F32.0 - Major depressive disorder, single episode, mild Plan: In remission. 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
[2024-04-01 09:43] VITALS: BP 136/82; BMI 17.6
== END 2024-04-01 10:16 | disposition home or self-care (01) ==
PROVIDERS: PCP Internal Medicine; Visit Provider Internal Medicine
DX: E11.43 Type 2 diabetes mellitus with diabetic autonomic (poly)neuropathy (principal); G80.1 Spastic diplegic cerebral palsy; F32.0 Major depressive disorder, single episode, mild; E78.5 Hyperlipidemia, unspecified
CPT/HCPCS: 99214

== ENCOUNTER 2024-05-26 09:17 | Outpatient (REF) | payer OTHER, SELFPAY ==
--- NOTE | ~2024-05-26 | US_ITS ---
EXAMINATION: US RETROPERITONEAL LIMITED (RENAL ONLY) CLINICAL INFORMATION: Calculus of kidney. COMPARISON: Renal ultrasound 11/12/2023 and 05/15/2023. CT abdomen and pelvis 03/01/2023. TECHNIQUE: Real-time imaging of the kidneys. FINDINGS: RIGHT KIDNEY: 10.2 x 4.4 x 4.1 cm (SAG x AP x TRV). The kidney is normal in size, contour, and echogenicity. Renal cortical thickness is normal. No hydronephrosis. Benign-appearing renal cysts and likely benign renal cysts measuring up to 2.5 cm. No follow-up imaging recommended. Few punctate echogenic foci seen scattered throughout the right kidney without shadowing, possibly vascular reflectors. LEFT KIDNEY: 10.7 x 5.0 x 3.9 cm (SAG x AP x TRV). The kidney is normal in size, contour, and echogenicity. Renal cortical thickness is normal. No renal calculi or hydronephrosis. Benign-appearing renal cysts measuring up to 2.3 cm. No follow-up imaging is recommended. US/US renal BI IMPRESSION: Few punctate echogenic foci seen scattered throughout the right kidney without shadowing, possibly vascular reflectors. No definite nephrolithiasis.
== END 2024-05-26 09:18 | disposition home or self-care (01) ==
LOC: HO.US 09:17
PROVIDERS: PCP Internal Medicine; Visit Provider Nurse Practitioner Family
DX: N20.0 Calculus of kidney (principal); N28.1 Cyst of kidney, acquired
CPT/HCPCS: 76775

== ENCOUNTER 2024-11-30 16:41 | Inpatient (IN) | payer OTHER, SELFPAY ==
[2024-11-30] VITALS (7 sets, daily range): BP systolic 129–169; BP diastolic 69–96; PULSE 105–120; RESP 16–30; TEMP -17.7–36.7; O2SAT 98–100; BMI 20.6; BMI 18.1
--- NOTE | ~2024-11-30 | XR_ITS ---
CLINICAL HISTORY: leukocytosis 1 view chest x-ray Comparison: CR - CHEST 2 VIEWS [id number] - 10/01/14 17:56 EST Findings: No consolidation or effusion. Heart size is normal. No acute fracture. There is an IV within the right side of the neck. IMPRESSION: 1. No acute findings. This document has been electronically signed by: Sadia iDxon MD on 11/30/2024 18:16:31
--- NOTE | ~2024-11-30 | CT_ITS ---
CLINICAL HISTORY: ? radial scaphoid fx CT of the right wrist without IV contrast. Comparison: Radiographs from the same day. Findings: Mildly impacted distal radial metaphyseal fracture is present. No scaphoid fracture. Prominent subchondral scaphoid cyst noted. Osseous alignment is satisfactory. Mild edema in the soft tissues of the wrist. Impression: Mildly impacted distal radial metaphyseal fracture. No scaphoid fracture. This document has been electronically signed by: Mina Ruelas MD, PHD on 11/30/2024 23:23:50
--- NOTE | ~2024-11-30 | XR_ITS ---
CLINICAL HISTORY: fall 4 view right wrist Comparison: None Findings: Cortical irregularity of the distal scaphoid. 4 mm ossific body projecting adjacent to the distal scaphoid on the lateral view. Additional foci of cortical irregularity involving the anterior and posterior aspect of the distal radius on the lateral view. No dislocation. No significant loss of joint space, osteophyte, or erosions. No radiopaque foreign body. IMPRESSION: There are findings raising the possibility of fractures of the distal scaphoid and distal radius. Consider CT evaluation. This document has been electronically signed by: Sadia Dixon MD on 11/30/2024 18:20:38
--- NOTE | ~2024-11-30 | CT_ITS ---
CLINICAL HISTORY: hx fall confused CT head without contrast Comparison: CT/REG/SR - CT HEAD/BRAIN WO IV CON - 04/01/23 10:18 EDT Findings: No intra-axial mass, midline shift, hydrocephalus, or acute hemorrhage. No significant atrophy-like change or white matter disease. There is no sinus or mastoid fluid. The orbits are within normal limits. No skull fracture. Prominent parafalcine ossifications. IMPRESSION: 1. No acute intracranial findings. This document has been electronically signed by: Mina Ruelas MD, PHD on 12/01/2024 00:28:20
--- NOTE | 2024-11-30 17:00 | ED.GENADULT ---
HPI - General Adult General Chief complaint: Nausea/Vomiting/Diarrhea Stated complaint: nausea vomit, diarrhea, chest pain Time Seen by Provider: 11/30/24 16:55 Source: patient Mode of arrival: EMS Limitations: no limitations History of Present Illness ED Provider: HPI narrative: Patient is type 1 diabetic been sick for last 3 days vomiting missed his insulin as he was feeling sick blood sugar was high when EMS arrived diffuse abdominal pain history of DKA in the past patient did not eat or drink much for last 3 days , no fever no chills also patient complaining of pain in the right wrist according to him he tripped and fell at home 1 week ago on the outstretched hand Related Data Home Medications ?Medication ?Instructions ?Recorded ?Confirmed glipizide 5 mg tablet 5 mg PO BID 11/30/24 insulin glargine 100 unit/mL (3 unit subcut 11/30/24 mL) subcutaneous pen (Lantus Solostar U-100 Insulin) Previous Rx's ?Medication ?Instructions ?Recorded wheelchair #1 ea 10/11/20 blood-glucose meter (FreeStyle #1 ea 06/19/21 Lite Meter kit) lidocaine 5 % topical patch 1 patch topical DAILY #30 ea 09/28/22 (Lidoderm) chlorpromazine 25 mg tablet 25 mg PO DAILY PRN hiccups 2 days 03/05/23 #2 tabs disposable gloves #2 ea 03/25/23 blood sugar diagnostic (FreeStyle #50 ea 04/23/23 Test strips) insulin aspart U-100 100 unit/mL 5 unit (0.05 mL) subcut TID #15 mL 07/01/23 (3 mL) subcutaneous pen (Novolog FlexPen U-100 Insulin aspart) cyclobenzaprine 5 mg tablet 5 mg PO TID PRN muscle spasm 7 08/13/23 days #21 tabs rosuvastatin 5 mg tablet 5 mg PO DAILY 90 days #90 tabs 08/13/23 glucagon 3 mg/actuation nasal 3 mg intranasal ONCE #2 ea 09/24/23 spray (Baqsimi) pen needle, diabetic 32 gauge x #100 ea 12/07/23 1/4 (BD Ultra-Fine Micro Pen Needle) crutch tips #2 ea 12/10/23 blood-glucose sensor (Dexcom G7 #3 ea 12/14/23 Sensor device) ankle wraps #1 ea 12/20/23 cholecalciferol (vitamin D3) 50 50 mcg PO DAILY 90 days #90 caps 03/14/24 mcg (2,000 unit) capsule omeprazole 40 mg capsule,delayed 40 mg PO BID #180 caps 03/14/24 release pyridoxine (vitamin B6) 100 mg 100 mg PO DAILY 90 days #90 tabs 03/14/24 tablet Allergies Allergy/AdvReac Type Severity Reaction Status Date / Time No Known Allergies Allergy Verified 11/30/24 17:02 Review of Systems Review of Systems: Yes all other systems are reviewed and are negative FOR[facility]LY [facility] Past Medical History Medical History Acute kidney injury Diabetic keto-acidosis Elevated cholesterol Diabetes Pancolitis Cough BPH (benign prostatic hyperplasia) Renal calculi Mild depression Osteopenia Anemia Elevated alkaline phosphatase level Insomnia Cerebral palsy GERD (gastroesophageal reflux disease) 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 Social History 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 have visiting nurse or other home services: Yes Alcohol intake: former Patient Tobacco Use Status: Never used Tobacco e-Cigarette/Vaping Use: Never Used Second Hand Smoke Exposure: No Use of substances other than those prescribed or required for medical reasons: No Substance Use Type: Marijuana Have you been hit, kicked, punched, or otherwise hurt by someone within the past year? If so, by whom?: No Do you feel safe in your current relationship?: No Current Relationship Is there a partner from a previous relationship who is making you feel unsafe now?: No Are you made to feel afraid or neglected: No Advance Directives: No Advance Directives Information Provided: Yes Do you have a plan to hurt others: No Plan Recently lost weight without trying: Unsure Nutrition Risks: Poor intake 0-25% >4 days Poor oral hygiene: No service: No Current occupational status: disabled Cognitive needs: Yes Hearing needs: No Vision needs: Yes Physical Exam ED Vital Signs: Vital Signs - 24 hr 11/30/24 17:00 11/30/24 18:12 11/30/24 18:33 Temperature 0 F L 97.4 F Pulse Rate 115 H 120 H Respiratory Rate 30 H 25 H 28 H Blood Pressure 142/69 H 156/91 H Pulse Oximetry 99 98 Oxygen Delivery Method Room Air Room Air 11/30/24 19:26 Temperature 97.3 F Pulse Rate 114 H Respiratory Rate 20 Blood Pressure 136/82 Pulse Oximetry 100 Oxygen Delivery Method Room Air BMI result Body Mass Index 20.6 Appearance: Alert. Oriented X3. In severe distress emaciated Eyes: PERRLA, No Nystagmus ENT: Pharynx normal. Oral Mucosa dry Neck: Normal inspection. Neck supple. CVS: Normal heart rate and rhythm. Pulses normal. Respiratory: No respiratory distress. Equal air entry bilateral, no wheezing/rales/rhonchi Abdomen: Soft and nontender. Bowel sounds are present, no mass palpable, no CVA tenderness Skin: Skin warm and dry. Normal skin color. Normal skin turgor. Extremities: No lower extremity edema. No calf tenderness right wrist swelling and local radial and base of the thumb Neuro: Oriented X 3. No motor deficit. Medications Administered Generic Name Dose Route Start Last Admin Trade Name Freq PRN Reason Stop Dose Admin Heparin Sodium (Porcine) 5,000 unit 11/30/24 20:00 11/30/24 20:33 Heparin Sodium,Porcine 5,000 Unit/Ml Vial SUBCUT 5,000 unit Q12H BOBO Administration Insulin Human Regular 100 unit in 100 mls @ 6 mls/hr 11/30/24 17:30 11/30/24 22:02 Myxredlin IVCONT 3 unit/hr .[id number] BOBO 3 mls/hr Titration Protocol 6 UNIT/HR Dextrose/Lactated Ringer's 1,000 mls @ 125 mls/hr 11/30/24 20:00 11/30/24 20:27 D5lr IVCONT 125 mls/hr .Q8H BOBO Administration Discontinued Medications Generic Name Dose Route Start Last Admin Trade Name Freq PRN Reason Stop Dose Admin Ceftriaxone Sodium 1 gm 11/30/24 18:11 11/30/24 18:14 Ceftriaxone Sodium 1 Gm Vial IVPUSH 11/30/24 18:12 1 gm ONCE ONE Administration Sodium Chloride 1,000 mls @ 999 mls/hr 11/30/24 17:10 11/30/24 18:26 Ns IV 11/30/24 18:10 Infused .Q1H1M ONE Infusion Sodium Chloride 1,000 mls @ 999 mls/hr 11/30/24 17:11 11/30/24 18:26 Ns IV 11/30/24 18:11 Infused .Q1H1M ONE Infusion Sodium Chloride 1,000 mls @ 999 mls/hr 11/30/24 18:03 11/30/24 20:34 Ns IV 11/30/24 19:03 Infused .Q1H1M ONE Infusion Calcium Gluconate 2 gm in 100 mls @ 50 mls/hr 11/30/24 20:06 11/30/24 20:27 Calcium Gluconate IV 11/30/24 22:05 50 mls/hr ONCE ONE Administration Insulin Human Regular 10 unit 11/30/24 17:11 11/30/24 17:18 Insulin Regular, Human 100 Unit/Ml 10 Ml Vial IVPUSH 11/30/24 17:12 10 unit ONCE ONE Administration Morphine Sulfate 4 mg 11/30/24 18:02 11/30/24 18:12 Morphine Sulfate 4 Mg/Ml Cartridge IVPUSH 11/30/24 18:03 4 mg ONCE ONE Administration Protocol Ondansetron HCl 4 mg 11/30/24 17:11 11/30/24 17:19 Ondansetron Hcl 4 Mg/2 Ml Vial IVPUSH 11/30/24 17:12 4 mg ONCE ONE Administration Potassium Chloride 40 meq 11/30/24 20:05 11/30/24 20:33 Potassium Chloride Packet 20 Meq Packet PO 11/30/24 20:06 40 meq ONCE ONE Administration Procedures Orthopedic Splinting/Casting Injury #1: Side: right Upper Extremity Injury Location: wrist Upper Extremity Immobilizer: wrist splint Medical Decision Making Medical Decision Making MDM Narrative: Patient with diabetic ketoacidosis with severe acidotic with anion gap of more than 30 with GRAY creatinine of 2.4 blood sugar of 746 venous pH 7.05 was started insulin drip and 3 L of normal saline were given repeat venous pH was 7.10 and anion gap was 29 patient is alert oriented had p.o. 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 x-ray of the right wrist showed distal radial fracture with questionable scaphoid fracture wrist splint was applied patient will be admitted and will see orthopedics patient has leukocytosis is from dehydration and stress from the DKA patient has had normal lactic acid blood cultures drawn prophylactic Rocephin was given Differential Diagnosis Differential Diagnoses: The differential diagnosis associated with the presentation includes Diabetic ketoacidosis /pancreatitis/sepsis Admission/Observation Consideration of admission/observation: Escalation of care including admission/observation considered Consult Healthcare Provider Management of the patient was discussed with: National Sales Consultant Home Care Manager Lab Data MDM Lab Attestation statement: I reviewed the patient's lab results. 11/30/24 17:12 11/30/24 19:26 Labs: Lab Results 11/30/24 11/30/24 11/30/24 Range/Units 17:08 17:12 17:15 WBC 21.3 H (4.8-10.8) X10*3/uL RBC 5.33 D (4.60-5.80) X10*6/uL Hgb 16.7 (14.0-18.0) g/dl Hct 45.8 (42.0-52.0) % MCV 85.9 (80.0-98.0) fL MCH 31.3 (27.0-33.0) pg MCHC 36.5 H (31.0-36.0) g/dl RDW 11.8 (11.0-16.0) % Plt Count 411 H D (160-400) X10*3/uL MPV 9.6 (9.4-12.4) fL Immature Gran % (Auto) 1.0 H (0.0-0.4) % Neut % (Auto) 83.4 H (45-73) % Lymph % (Auto) 6.7 L (20-40) % [place] % (Auto) 8.7 (2-11) % Eos % (Auto) 0.0 (0-4) % Baso % (Auto) 0.2 (0-2) % Lymph # (Auto) 1.4 (1.2-4.9) X10*3/uL [place] # (Auto) 1.8 H (0.1-1.2) X10*3/uL Eos # (Auto) 0.0 (0.0-0.4) X10*3/uL Baso # (Auto) 0.1 (0.0-0.2) X10*3/uL Abs Immat Gran (auto) 0.21 H (0.00-0.03) X10*3/uL Absolute Neuts (auto) 17.7 H (2.0-8.3) x10*3/uL Absolute Nucleated RBC 0.000 (0.0-0.012) X10*3/uL Nucleated RBC % (auto) 0.0 (0.0-0.2) /100WBC Smear Tech's Comments VERIFIED VBG pH (7.32-7.43) VBG pCO2 mmHg VBG pO2 mmHg VBG HCO3 (22-26) mmol/L VBG O2 Saturation % VBG Base Excess mmol/L Sodium 119 L* (135-145) mmol/L Potassium 4.4 (3.3-5.1) mmol/L Chloride 77 L D (96-108) mmol/L Carbon Dioxide < 5 L* D (22-29) mmol/L Anion Gap TNP BUN 57 H (9-16) mg/dL Creatinine 2.44 H (0.5-1.4) mg/dL Estim Creat Clear Calc 29.1 Estimated GFR 29 POC Glucose > 600 H* > 600 H* (60-115) mg/dL Random Glucose 746 H* (60-115) mg/dL Lactic Acid (0.5-2.0) mmol/L Calcium 9.2 (8.4-10.2) mg/dL Magnesium 2.9 H (1.6-2.6) mg/dL Total Bilirubin 1.2 H (0.0-1.0) mg/dL AST 26 (5-37) U/L ALT 16 (0-40) U/L Alkaline Phosphatase 151 H (39-117) U/L Total Protein 9.1 H (6.5-8.0) g/dL Albumin 5.0 (3.5-5.0) g/dL Lipase 5 L (8-78) U/L Beta-Hydroxybutyrate 15.28 H (0.02-0.27) mmol/L Urine Color Urine Appearance Urine pH (5.0-9.0) Ur Specific [place] (1.005-1.025) Urine Protein (Neg-Trace) mg/dL Urine Glucose (UA) (Negative) mg/dL Urine Ketones (Negative) mg/dL Urine Blood (Negative) Urine Nitrite (Negative) Ur Leukocyte Esterase (Negative) Urine RBC (0-2) /HPF Urine WBC (0-5) /HPF Ur Squamous Epith Cells (0-2) /HPF Urine Bacteria (None Seen) Hyaline Casts (0-2) /LPF Influenza Type A (PCR) (Negative) Influenza Type B (PCR) (Negative) RSV RNA Qual (PCR) (Negative) SARS-CoV-2 RNA (RT-PCR) (Negative) 11/30/24 11/30/24 11/30/24 Range/Units 17:16 17:40 18:18 WBC (4.8-10.8) X10*3/uL RBC (4.60-5.80) X10*6/uL Hgb (14.0-18.0) g/dl Hct (42.0-52.0) % MCV (80.0-98.0) fL MCH (27.0-33.0) pg MCHC (31.0-36.0) g/dl RDW (11.0-16.0) % Plt Count (160-400) X10*3/uL MPV (9.4-12.4) fL Immature Gran % (Auto) (0.0-0.4) % Neut % (Auto) (45-73) % Lymph % (Auto) (20-40) % [place] % (Auto) (2-11) % Eos % (Auto) (0-4) % Baso % (Auto) (0-2) % Lymph # (Auto) (1.2-4.9) X10*3/uL [place] # (Auto) (0.1-1.2) X10*3/uL Eos # (Auto) (0.0-0.4) X10*3/uL Baso # (Auto) (0.0-0.2) X10*3/uL Abs Immat Gran (auto) (0.00-0.03) X10*3/uL Absolute Neuts (auto) (2.0-8.3) x10*3/uL Absolute Nucleated RBC (0.0-0.012) X10*3/uL Nucleated RBC % (auto) (0.0-0.2) /100WBC Smear Tech's Comments VBG pH 7.05 L* (7.32-7.43) VBG pCO2 16 mmHg VBG pO2 48 mmHg VBG HCO3 5 L (22-26) mmol/L VBG O2 Saturation 68.0 % VBG Base Excess -23.2 mmol/L Sodium (135-145) mmol/L Potassium (3.3-5.1) mmol/L Chloride (96-108) mmol/L Carbon Dioxide (22-29) mmol/L Anion Gap BUN (9-16) mg/dL Creatinine (0.5-1.4) mg/dL Estim Creat Clear Calc Estimated GFR POC Glucose (60-115) mg/dL Random Glucose (60-115) mg/dL Lactic Acid 1.8 (0.5-2.0) mmol/L Calcium (8.4-10.2) mg/dL Magnesium (1.6-2.6) mg/dL Total Bilirubin (0.0-1.0) mg/dL AST (5-37) U/L ALT (0-40) U/L Alkaline Phosphatase (39-117) U/L Total Protein (6.5-8.0) g/dL Albumin (3.5-5.0) g/dL Lipase (8-78) U/L Beta-Hydroxybutyrate (0.02-0.27) mmol/L Urine Color Yellow Urine Appearance Clear Urine pH 5.0 (5.0-9.0) Ur Specific [place] 1.020 (1.005-1.025) Urine Protein 30 (1+) H (Neg-Trace) mg/dL Urine Glucose (UA) >=1000 H (Negative) mg/dL Urine Ketones >=160 (Negative) mg/dL Urine Blood Large (3+) H (Negative) Urine Nitrite Negative (Negative) Ur Leukocyte Esterase Negative (Negative) Urine RBC 0-2 (0-2) /HPF Urine WBC 0-5 (0-5) /HPF Ur Squamous Epith Cells 0-2 (0-2) /HPF Urine Bacteria None Seen (None Seen) Hyaline Casts 6-10 (0-2) /LPF Influenza Type A (PCR) NEGATIVE (Negative) Influenza Type B (PCR) NEGATIVE (Negative) RSV RNA Qual (PCR) NEGATIVE (Negative) SARS-CoV-2 RNA (RT-PCR) NEGATIVE (Negative) 11/30/24 11/30/24 11/30/24 Range/Units 18:33 19:26 19:28 WBC (4.8-10.8) X10*3/uL RBC (4.60-5.80) X10*6/uL Hgb (14.0-18.0) g/dl Hct (42.0-52.0) % MCV (80.0-98.0) fL MCH (27.0-33.0) pg MCHC (31.0-36.0) g/dl RDW (11.0-16.0) % Plt Count (160-400) X10*3/uL MPV (9.4-12.4) fL Immature Gran % (Auto) (0.0-0.4) % Neut % (Auto) (45-73) % Lymph % (Auto) (20-40) % [place] % (Auto) (2-11) % Eos % (Auto) (0-4) % Baso % (Auto) (0-2) % Lymph # (Auto) (1.2-4.9) X10*3/uL [place] # (Auto) (0.1-1.2) X10*3/uL Eos # (Auto) (0.0-0.4) X10*3/uL Baso # (Auto) (0.0-0.2) X10*3/uL Abs Immat Gran (auto) (0.00-0.03) X10*3/uL Absolute Neuts (auto) (2.0-8.3) x10*3/uL Absolute Nucleated RBC (0.0-0.012) X10*3/uL Nucleated RBC % (auto) (0.0-0.2) /100WBC Smear Tech's Comments VBG pH 7.10 L* (7.32-7.43) VBG pCO2 16 mmHg VBG pO2 95 mmHg VBG HCO3 5 L (22-26) mmol/L VBG O2 Saturation 96.0 % VBG Base Excess -21.8 mmol/L Sodium 129 L (135-145) mmol/L Potassium 3.5 D (3.3-5.1) mmol/L Chloride 98 D (96-108) mmol/L Carbon Dioxide 6 L* D (22-29) mmol/L Anion Gap 29 H BUN 51 H (9-16) mg/dL Creatinine 1.53 H (0.5-1.4) mg/dL Estim Creat Clear Calc 46.4 Estimated GFR 49 POC Glucose 369 H* (60-115) mg/dL Random Glucose 287 H (60-115) mg/dL Lactic Acid (0.5-2.0) mmol/L Calcium 7.2 L D (8.4-10.2) mg/dL Magnesium (1.6-2.6) mg/dL Total Bilirubin (0.0-1.0) mg/dL AST (5-37) U/L ALT (0-40) U/L Alkaline Phosphatase (39-117) U/L Total Protein (6.5-8.0) g/dL Albumin (3.5-5.0) g/dL Lipase (8-78) U/L Beta-Hydroxybutyrate (0.02-0.27) mmol/L Urine Color Urine Appearance Urine pH (5.0-9.0) Ur Specific [place] (1.005-1.025) Urine Protein (Neg-Trace) mg/dL Urine Glucose (UA) (Negative) mg/dL Urine Ketones (Negative) mg/dL Urine Blood (Negative) Urine Nitrite (Negative) Ur Leukocyte Esterase (Negative) Urine RBC (0-2) /HPF Urine WBC (0-5) /HPF Ur Squamous Epith Cells (0-2) /HPF Urine Bacteria (None Seen) Hyaline Casts (0-2) /LPF Influenza Type A (PCR) (Negative) Influenza Type B (PCR) (Negative) RSV RNA Qual (PCR) (Negative) SARS-CoV-2 RNA (RT-PCR) (Negative) 11/30/24 Range/Units 19:43 WBC (4.8-10.8) X10*3/uL RBC (4.60-5.80) X10*6/uL Hgb (14.0-18.0) g/dl Hct (42.0-52.0) % MCV (80.0-98.0) fL MCH (27.0-33.0) pg MCHC (31.0-36.0) g/dl RDW (11.0-16.0) % Plt Count (160-400) X10*3/uL MPV (9.4-12.4) fL Immature Gran % (Auto) (0.0-0.4) % Neut % (Auto) (45-73) % Lymph % (Auto) (20-40) % [place] % (Auto) (2-11) % Eos % (Auto) (0-4) % Baso % (Auto) (0-2) % Lymph # (Auto) (1.2-4.9) X10*3/uL [place] # (Auto) (0.1-1.2) X10*3/uL Eos # (Auto) (0.0-0.4) X10*3/uL Baso # (Auto) (0.0-0.2) X10*3/uL Abs Immat Gran (auto) (0.00-0.03) X10*3/uL Absolute Neuts (auto) (2.0-8.3) x10*3/uL Absolute Nucleated RBC (0.0-0.012) X10*3/uL Nucleated RBC % (auto) (0.0-0.2) /100WBC Smear Tech's Comments VBG pH (7.32-7.43) VBG pCO2 mmHg VBG pO2 mmHg VBG HCO3 (22-26) mmol/L VBG O2 Saturation % VBG Base Excess mmol/L Sodium (135-145) mmol/L Potassium (3.3-5.1) mmol/L Chloride (96-108) mmol/L Carbon Dioxide (22-29) mmol/L Anion Gap BUN (9-16) mg/dL Creatinine (0.5-1.4) mg/dL Estim Creat Clear Calc Estimated GFR POC Glucose 254 H (60-115) mg/dL Random Glucose (60-115) mg/dL Lactic Acid (0.5-2.0) mmol/L Calcium (8.4-10.2) mg/dL Magnesium (1.6-2.6) mg/dL Total Bilirubin (0.0-1.0) mg/dL AST (5-37) U/L ALT (0-40) U/L Alkaline Phosphatase (39-117) U/L Total Protein (6.5-8.0) g/dL Albumin (3.5-5.0) g/dL Lipase (8-78) U/L Beta-Hydroxybutyrate (0.02-0.27) mmol/L Urine Color Urine Appearance Urine pH (5.0-9.0) Ur Specific [place] (1.005-1.025) Urine Protein (Neg-Trace) mg/dL Urine Glucose (UA) (Negative) mg/dL Urine Ketones (Negative) mg/dL Urine Blood (Negative) Urine Nitrite (Negative) Ur Leukocyte Esterase (Negative) Urine RBC (0-2) /HPF Urine WBC (0-5) /HPF Ur Squamous Epith Cells (0-2) /HPF Urine Bacteria (None Seen) Hyaline Casts (0-2) /LPF Influenza Type A (PCR) (Negative) Influenza Type B (PCR) (Negative) RSV RNA Qual (PCR) (Negative) SARS-CoV-2 RNA (RT-PCR) (Negative) Independent Interpretation I performed an independent interpretation of an: EKG Interpretation: Sinus tachycardia with ventricular rate of 116 beats per minute normal intervals normal axis no acute ST-T changes no acute ischemia Radiology Impression Discussion of test interpretation with radiology: I have reviewed the radiologist's reading. Radiologist Impression: Wilman Huggins??44??M??1980 ? Allergy/Adv: No Known Allergies Close Wrist X-Ray (Signed) Sadia Dixon - 11/30/24 Chest X-Ray (Signed) Sadia Dixon - 11/30/24 Renal Ultrasound (Signed) Sherin Chinchilla - 05/26/24 General Surgery Image 02/24/24 Renal Ultrasound (Signed) Alex Cabrera - 11/12/23 Renal Ultrasound (Signed) Sundeep Toscano - 05/15/[address] (Signed) Marcus Roman - 04/01/23 Abdomen/Pelvis CT (Signed) Katerine Johns - 03/01/23 Renal Ultrasound (Signed) Monica Clifford - 09/27/22 Gastric Emptying Nuclear Medicine (Signed) Jaden Vasquez - 09/12/22 Abdomen/Pelvis CT (Signed) Panda Garces - 09/09/22 Abdomen/Pelvis CT (Signed) Sal Navarro - 01/13/22 Barium Swallow X-Ray (Signed) Haseeb Sam - 03/02/21 Abdomen/Pelvis CT (Signed) Sal Rosas - 11/02/20 Launch?Image [address] [address] XRay Report Signed Patient: Wilman Huggins MR#: [id number] : 1980 Acct:[id number] Age/Sex: 44 / M ADM Date: 11/30/24 Loc: HO.ED Attending Dr: Ordering Physician: Sky Reynoso MD Date of Service: 11/30/24 Procedure(s): XR wrist RT min 3V Accession Number(s): [id number] cc: Isabell Blue MD; Sky Reynoso MD~ CLINICAL HISTORY: fall 4 view right wrist Comparison: None Findings: Cortical irregularity of the distal scaphoid. 4 mm ossific body projecting adjacent to the distal scaphoid on the lateral view. Additional foci of cortical irregularity involving the anterior and posterior aspect of the distal radius on the lateral view. No dislocation. No significant loss of joint space, osteophyte, or erosions. No radiopaque foreign body. IMPRESSION: There are findings raising the possibility of fractures of the distal scaphoid and distal radius. Consider CT evaluation. This document has been electronically signed by: Sadia Dixon MD on 11/30/2024 18:20:38 Critical Care Time Critical Care Time Critical Care Time: Yes Total Critical Care Time: 90 Attestation: The patient was critically ill with a high probability of imminent or life threatening deterioration. I spent greater than ?100??minutes of discontinuous time evaluating the patient,delivering critical care at the bedside, discussing and evaluating pertinent data with consultants. Critical care time does not include time spent performing separately billable procedures or teaching. Total time spent performing critical care was ?90??minutes. Discharge Plan Discharge Clinical Impression: Diabetic keto-acidosis, Fracture of right distal radius Patient Disposition: Admitted As Inpatient Discharge Date/Time: 11/30/24 20:56
--- NOTE | 2024-11-30 17:10 | ECG_ITS ---
Test Reason : sob Blood Pressure : */* mmHG Vent. Rate : 116 BPM Atrial Rate : 116 BPM P-R Int : 114 ms QRS Dur : 84 ms QT Int : 374 ms P-R-T Axes : 84 85 37 degrees QTcB Int : 519 ms Sinus tachycardia Otherwise normal ECG When compared with ECG of 01-Mar-2023 16:08, Vent. rate has increased by 40 bpm Referred By: Sky Reynoso Electronically Signed By: DIAN ZARAGOZA MD
[2024-11-30] MEDS: 0.9 % Sodium Chloride 1,000 ML 999 ML IV ×3 (17:15→18:12)
[2024-11-30] MEDS: Insulin Regular, Human 100 UNIT/ML 10 ML VIAL 10 UNIT IVPUSH (17:18)
[2024-11-30] MEDS: ondansetron HCL 4 MG/2 ML VIAL IVPUSH ×2 (17:19→22:43)
[2024-11-30 17:21] LABS: Basophils Absolute Auto 0.1 X10*3/uL (0.0-0.2); Basophils Percent Auto 0.2 % (0-2); Hematocrit 45.8 % (42.0-52.0); Hemoglobin 16.7 g/dl (14.0-18.0); Imm Gran Abs Auto 0.21 X10*3/uL (0.00-0.03); Lymphocytes Absolute Auto 1.4 X10*3/uL (1.2-4.9); Lymphocytes Percent Auto 6.7 % (20-40); MANUAL DIFF FLAG SCAN; Mean Corpuscular HGB Conc 36.5 g/dl (31.0-36.0); Mean Corpuscular Hemoglobin 31.3 pg (27.0-33.0); Mean Corpuscular Volume 85.9 fL (80.0-98.0); Mean Platelet Volume 9.6 fL (9.4-12.4); Monocytes Absolute Auto 1.8 X10*3/uL (0.1-1.2); Monocytes Percent Auto 8.7 % (2-11); Neutrophils Absolute Auto 17.7 x10*3/uL (2.0-8.3); Neutrophils Percent Auto 83.4 % (45-73); Platelet Count 411 X10*3/uL (160-400); Red Blood Count 5.33 X10*6/uL (4.60-5.80); Red Cell Distribution Width 11.8 % (11.0-16.0); SCAN SMEAR FLAG 1; White Blood Count 21.3 X10*3/uL (4.8-10.8)
[2024-11-30 17:23] LABS: Glucose, Whole Blood > 600 mg/dL (60-115)
[2024-11-30 17:23] LABS: Glucose, Whole Blood > 600 mg/dL (60-115)
[2024-11-30 17:24] LABS: Venous Blood Gas Refer to POC result
[2024-11-30 17:24] LABS: VBG Base Excess -23.2 mmol/L; VBG HCO3 5 mmol/L (22-26); VBG pCO2 16 mmHg; VBG pH 7.05 (7.32-7.43); VBG pO2 48 mmHg
[2024-11-30] MEDS: Insulin Regular/NS 100 UNIT/100 ML PLAST..BAG 6 UNIT IVCONT (17:36)
[2024-11-30 17:59] LABS: Lactic Acid 1.8 mmol/L (0.5-2.0)
[2024-11-30 18:00] LABS: Alanine Aminotransferase 16 U/L (0-40); Alkaline Phosphatase 151 U/L (39-117); Aspartate Amino Transferase 26 U/L (5-37); Beta-Hydroxybutyrate 15.28 mmol/L (0.02-0.27); Bilirubin Total 1.2 mg/dL (0.0-1.0); Blood Urea Nitrogen 57 mg/dL (9-16); Calcium 9.2 mg/dL (8.4-10.2); Carbon Dioxide < 5 mmol/L (22-29); Chloride 77 mmol/L (96-108); Creatinine Clr Calc Pharmacy 29.1; Estimated Glomerular Filt Rate 29; Glucose Random 746 mg/dL (60-115); Lipase 5 U/L (8-78); Magnesium 2.9 mg/dL (1.6-2.6); Potassium 4.4 mmol/L (3.3-5.1); Sodium 119 mmol/L (135-145); Total Protein 9.1 g/dL (6.5-8.0)
[2024-11-30] MEDS: Morphine Sulfate 4 MG/ML CARTRIDGE IVPUSH (18:12)
--- OUTSIDE RECORDS SUMMARY | 2024-11-30 18:12 | XMS_ITS ---
Author Organization [facility] Address [address] [place] [address] Care Team Providers Care Magazine Repairer Name Role Phone Beverley PONCE, Isabell Primary Care Provider Unavail Jasmyn Sosa Unavailable [phone] Narciso Graff [phone] Encounters Encounter Location Date Provider Diagnosis [address] [id number] 07/20/2024 Narciso Graff Plan Of Treatment Next Appt Details Provider Name:Jasmyn pelletier, 02/25/2025 09:45:00 AM, [address] [place] [address], [id number], Progress Notes * BHAVNABrynnOB:1980 (44 yo M)Acc No.[id number]:07/20/2024 Progress Note Patient:?BHAVNAWilman Provider:?Narciso Graff DPM :1980???Age:44 Y???Sex:Male Camilo e:07/20/2024 Address:[address] , [id number] Pcp:Isabell Lowery MD Subjective: * Chief Complaints: * ??? * Medical History:? Objective: * Vitals:? Assessment: Plan: * Treatment: * Images: * The named appointment provid er may or may not be the originator of this progress note, and it is not deemed complete until electronically signed by the appointment provider. Sign off status: Pending * Provider:Talha Graff DPM Date:? 024 Generated for Yobani carroll/Wayne/Sadie on:?11/30/2024 06:11 PM EST
--- OUTSIDE RECORDS SUMMARY | 2024-11-30 18:12 | XMS_ITS ---
[facility] Address [address] [place] [address] Care Team Providers Care Car Starter Name Role Phone Beverley PONCE, Isabell Primary Care Provider Unavail Jasmyn Sosa Unavailable [phone] Allergies No Known Allergies REASON FOR VISIT At Risk Footcare Medications Medication SIG (Take, Route, Frequency, Duration) Notes Start Date End Date Status Omeprazole 20 MG 1 capsule Orally Twi ce a day Active Custom Orthotics as directed A ctive Januvia Not-Taking Extra Depth Diabetic Shoes with 3 Pair Custom heat-molded multi-density innersoles for 1 year Dx: N ot-Taking Potassium Active Pioglitazone HCl Not -Taking Trulicity 0.75 MG/0.5ML as directed Subcutaneous Not-Taking Extra Depth Diabetic Shoes with 3 Pair Custom heat-molded multi-density innersoles for 1 year Dx: 06/05/2021 N ot-Taking Orthopedic Extra Depth Shoes With Custom Heat Molded Multidensity Innersoles as directed Wear Daily for as needed 04/07/2020 Not-Taking ASO Ankle/Foot Stablizing AFO As directed Wear Daily for as needed Not-Taking Custom Orthotics as directed one pair and accomodate painful right 2nd mtpj to offload pressure Not-Taking Social History Tobacco Use: Social History Observation Description Date Details (start date - stop date) Never Smoker NA - NA Tobacco Use/Smoking Question Answer Notes Are you a: nonsmoker Additional Findings: Tobacco Non-User Current no n-smoker Tobacco use other than smoking: Question Answer Notes Are you an other tobacco user? No Problems Problem Type SNOMED Code ICD Code Onset Dates Problem Status W/U Status Risk Notes Problem Polyneuropathy due to diabetes mellitus type I (162803647) Type 1 diabetes mellitus with diabetic polyneuropathy (E10.42) Active confirmed Vital Signs Height 5ft 7in in 11/09/2024 Weight 117 lbs 11/09/2024 BMI 18.32 kg/m2 11/09/2024 Blood pressure systolic 130 mm Hg 11/09/20 Blood pressure diastolic 70 mm Hg 024 Procedures Procedure Date Ordered Date Performed Result Body Sit e 96931-BATDNKK NAIL, 6 OR MORE 11/09/2024 N/A 77047-CDQP SKIN LESIONS, 2 TO 4 11/09/2024 N/A Encounters Encounter Location Date Provider Diagnosis [facility] [place] [address] [facility] [address] [place] [address] 11/09/2024 Jasmyn Claire Type 2 diabetes mellitus with diabetic polyneuropathy E11.42 and Tinea unguium B35.1 Assessments Encounter Date Diagnosis (ICD Code) Assessment Notes Treatment Notes Treatment Clinical Notes Section Notes 11/09/2024 Type 2 diabetes mellitus with diabetic polyneuropathy (ICD-10 - E11.42) 11/09/2024 Tinea unguium (ICD-10 - B35.1) Plan Of Treatment Pending Test Test Name Order Date 54740-MOMNMGH NAIL, 6 OR MORE 11/09/2024 80170-TIWC SKIN LESIONS, 2 TO 4 11/09/20 24 Next Appt Details Follow Up: 3 Months, Reason: Provider Name:Jasmyn Dunn liyah, 02/25/2025 09:45:00 AM, [address] [facility], [address], [place], [address], Procedure Notes * Category Sub-Category Detail Notes Debride Nail 6-10 Nail debridement Due to the cl inical pathology outlined in the exam findings, performance of this nail treatment is medically necessary as its management by an unskilled/untrained nonprofessional would put this patients foot and overall health at risk. Therefore, debridement to affected nail(s), as described in exam ( TA, T1, T2, T3, T4, T5, T6, T7, T8, T9, ), was performed exclusively by the physician of record to reduce/remove overall nail length, girth, thickness, subungual debris, and necrotic tissue, by manual and/or electrical means through the use of a nail nipper and/or dremel-type chisel grinder, to a more viable healthy nail plate or bed tissue 6-10 nails in total. Silver nitrate was used for any petechial bleeding as necessary. Definitive antifungal treatment options, both pharmaceutical and surgical, have been reviewed and discussed with the patient. The patient solely prefers the use of intermittent/as needed professional debridement services for their nail condition and understands the need for additional periodic treatments to maintain effectiveness in symptomatic relief - 81786 Keratoma Treatment Parring or Cutting o f Benign Hyperkeratotic Lesion(s) (-56) 2-4 Lesions - Due to the at risk nature of the patients medical condition as documented in the exam findings, performance of this keratoderma treatment is medically necessary as its management by an unskilled/untrained nonprofessional would put this patients foot and overall health at risk. Therefore, the benign hyperkeratotic lesions, ( 2) in total, locations as stated and described in the exam ( sub second metatarsal head B/L ), were pared, and/or cut utilizing a sterile 15 blade, tissue nippers, and/or power dremel instrumentation by the physician of record - 63698 Progress Notes * Brynn HUGGINSOB:1980 (44 yo M)Acc No.[id number]:11/09/2024 Progress Note Patient:Wilman HERNANDEZ Provider:?Jasmyn Claire DPM :1980???Age:44 Y???Sex:Male Camilo e:11/09/2024 Address:[address] [place], [place] [id number] Pcp:Isabell Lowery MD Subjective: * Chief Complaints: * ???At Risk Footcare * HPI: ???At Risk footcare:?Pt States Last PCP Visit:?Date?08/31/2024 * ROS:?General/Constitutional:?Nausea?denies.?Vomiting?denies.?Hunger Thirst?denies.?Loss appetite?denies.?Chills?denies.?Fatigue?denies.?Fever?denies.?Night Sweats?denies.?Unexplained weight loss?denies.?Unexplained weight gain?denies.?HEENTM:?Dentures?denies.?Dizziness?denies.?Glasses/contacts?admits.?Retinopathy?de nies.?Blurred/double vision?denies.?TMJ?denies.?Discharge/drainage?denies.?Implants?denies.?Sore throat?denies.?Dental implants?denies.?Hard of hearing ?denies.?Difficulty chewing/swallowing/speaking?denies.?Nose bleeds?denies.?Sore mouth?denies.?Respiratory:?On Oxygen?denies.?Pneumonia/pleurisy?denies.?Bronchitis?denies.?Emphysema?denies.?C oughing?denies.?Cough blood?denies.?Shortness of breath?denies.?Wheezing?denies.?Cardiovascular:?Pacemaker?denies.?MVP?denies.?WPW?denies.?CHF?denies.?Heart attack?denies.?Septal defect?denies.?Rapid beat?denies.?Chest pain ?denies.?Atrial Fib.?denies.?Murmur/Palpitations?denies.?Gastrointestinal:?Hemorrhoids?denies.?Stomach/Abdominal pain?denies.?Dark blood stool?denies.?Irritable bowel ?denies.?Constipation?denies.?Diarrhea?denies.?Hematology:?Swelling?denies.?Clots?denies.?Varicose Veins?denies.?Bruising?denies.?Bleeding problem?denies.?Genitourinary:?Blood urine?denies.?Frequent/Painfu/urination/bladder control?denies.?Kidney stones?denies.?Infection (UTI)?denies.?Nephropathy?denies.?sex trans dis (STD)?denies.?Prostate?denies.?Musculoskeletal:?Hammertoes?denies.?Bunions?denies.?Back Pain?denies.?Muscle Cramps/ Resting?denies.?Muscle cramps / walking?denies.?Generalized aches and pains?denies.?Weakness?denies.?Integ.:?Cullen?denies.?Scars?denies.?Corns/calluses?denies.?Ingrown nails?denies.?Painful nails?denies.?Open Sores?denies.?Rashes?denies.?Neurologic:?Difficulty sleeping?denies.?Brain disorder?denies.?Numbness?denies.?Balance trouble?admits.?Confusion?denies.?Fainting/blackouts?denies.?Tingling?denies.?Tr emors?denies.? * Medical History:? * Surgical History:?neuroma paris rgery x4 1982, 1989colonscopy 02/24/24 * Hospitalization/Major Diagno stic [place] [place] blood sugar 615/2018[place] 10[place] [place] [place] [facility] * Family History:?Mother: anali marsh?Father: , diagnosed with Other malignant neoplasm of unspecified site.? * Social History:?Tobacco Use:?Tobacco Use/Smoking?Are you a:?nonsmoker ?Additional Findings: Tobacco Non-User?Current non-smoker ?Tobacco use other than smoking?Are you an other tobacco user??No ???Miscellaneous:?Caffeine: yes, frequency:2 cups per day. ?Children: no. ?Exercise: no. ?Marital status: single. ?Occupation: N/A. * Medications:?TakingCustom Or thotics as directed Omeprazole 20 MG Capsule Delayed Release 1 capsule Orally Twice a day Potassium Taking Custom Orthotics as directed Taking Omeprazole 20 MG Capsule Delayed Release 1 capsule Orally Twice a day Taking Potassium Not-Taking/PRNExtra Depth Diabetic Shoes with 3 Pair Custom heat- molded multi-density innersoles for 1 year Dx: Custom Orthotics as directed one pair and accomodate painful right 2nd mtpj to offload pressure Trulicity 0.75 MG/0.5ML Solution Pen-injector as directed Subcutaneous ASO Ankle/Foot Stablizing AFO As directed Wear Daily Orthopedic Extra Depth Shoes With Custom Heat Molded Multidensity Innersoles as directed Wear Daily Extra Depth Diabetic Shoes with 3 Pair Custom heat-molded multi-density innersoles for 1 year Dx: Pioglitazone HCl Januvia Medication List reviewed and reconciled with the patientNot-Taking/PRN Extra Depth Diabetic Shoes with 3 Pair Custom heat-molded multi-density innersoles for 1 year Dx: Not-Taking/PRN Custom Orthotics as directed one pair and accomodate painful right 2nd mtpj to offload pressure Not-Taking/PRN Trulicity 0.75 MG/0.5ML Solution Pen- injector as directed Subcutaneous Not-Taking/PRN ASO Ankle/Foot Stablizing AFO As directed Wear Daily Not-Taking/PRN Orthopedic Extra Depth Shoes With Custom Heat Molded Multidensity Innersoles as directed Wear Daily Not-Taking/PRN Extra Depth Diabetic Shoes with 3 Pair Custom heat-molded multi-density innersoles for 1 year Dx: Not-Taking/PRN Pioglitazone HCl Not-Taking/PRN Januvia Medication List reviewed and reconciled with the patient * Allergies:?N.K.D.A.yes[Aller gies Verified] Objective: * Vitals:?Ht:5ft 7in, Wt:117, BMI:18.32, Shoe size:8.5, BP:130/70mm Hg, BS:not taken, Ht-cm: 170.18 cm, Wt-k.07 kg. * ???Past Orders: ???Lab:HEMOGLOBIN A1C (GLYCO HEMOGLOBIN) (Order Date - 08/10/2024) (Collection Date & Time - 08/10/2024 12:51 PM) ? Value Reference Range ?TOTAL HEMOGLOBIN (HGBA1C) 7 * Examination: ???Ophthalmology Referral: ?DIABETES EYE EXAM?Neurological: ?SENSORY:? Neurological exam demonstrates, reduced light touch sensation, reduced sharp/dull pin prick discrimination , B/L, 5.07 monofilament test performed at plantar aspects of 5 varied sites per foot shows sensation, reduced , B/L.?Nails: ?NAILS are:?Elongated, overgrown, dystrophic, lytic, greater than 3mm thick, discolored and friable with crumbly malodorous subungual debris, TA, T1, T2, T3, T4, T5, T6, T7, T8, T9.?Dermatologic: ?SKIN FINDINGS:?Skin exam reveals Keratotic lesion(s) located at sub second metatarsal head B/L.?Vascular: ?DP PULSES (B):?2/4, B/L.?PT PULSES (B):?2/4, B/L.?CAPILLARY FILL TIME:?3 secs. per digit. B/L.?TROPHIC CONDITION-TEXTURE/ELASTICITY/TURGOR/HAIR GROWTH (B):?normal, B/L.?TEMPERTURE GRADIENT (C):?normal, B/L.?PIGMENTATION:?normal, B/L.?EDEMA (C):?absent, B/L.?TELANGECTASIA:?absent, B/L.?Orthopedic: ?MUSCLE STRENGTH:?5/5 all groups in a symmetrical fashion, B/L.?General Examination: ?GENERAL APPEARANCE:?Reveals a pleasant, alert, well nourished, well- developed, well hydrated individual, who demonstrates proper attention to hygiene/body habitus, and is in no acute distress, Pt serves as own historian for office visit today.?ORIENTED:?person, place, and time.? Assessment: * Assessment: 1.?Type 2 diabetes mellitus with diabetic polyneuropathy - E11.42 (Primary)???2.?Tinea unguium - B35.1??? Plan: * Treatment: * Procedures:?Debride Nail 6-10:?Nail debridement?Due to the clinical pathology outlined in the exam findings, performance of this nail treatment is medically necessary as its management by an unskilled/untrained nonprofessional would put this patients foot and overall health at risk. Therefore, debridement to affected nail(s), as described in exam ( TA, T1, T2, T3, T4, T5, T6, T7, T8, T9, ), was performed exclusively by the physician of record to reduce/remove overall nail length, girth, thickness, subungual debris, and necrotic tissue, by manual and/or electrical means through the use of a nail nipper and/or dremel-type chisel grinder, to a more viable healthy nail plate or bed tissue 6- 10 nails in total. Silver nitrate was used for any petechial bleeding as necessary. Definitive antifungal treatment options, both pharmaceutical and surgical, have been reviewed and discussed with the patient. The patient solely prefers the use of intermittent/as needed professional debridement services for their nail condition and understands the need for additional periodic treatments to maintain effectiveness in symptomatic relief - 71730.?Keratoma Treatment:?Parring or Cutting of Benign Hyperkeratotic Lesion(s)?(-56) 2-4 Lesions - Due to the at risk nature of the patients medical condition as documented in the exam findings, performance of this keratoderma treatment is medically necessary as its management by an unskilled/untrained nonprofessional would put this patients foot and overall health at risk. Therefore, the benign hyperkeratotic lesions, ( 2) in total, locations as stated and described in the exam ( sub second metatarsal head B/L ), were pared, and/or cut utilizing a sterile 15 blade, tissue nippers, and/or power dremel instrumentation by the physician of record - [id number].? * Procedure Codes:?73162 DEBRI DE NAIL, 6 OR MORE, Modifiers: XS 68763 TRIM SKIN LESIONS, 2 TO 4, Modifiers: XS * Follow Up:?3 Months * Images: * Sign off status: Completed true * Provider:?Jasmyn Claire DPM Date:?1 Generated for Yobani carroll/Dewayneg/eTransmitting on:?11/30/2024 06:11 PM EST History and Physical Notes * HPI (History of Present Illness) Category Sub-Category Detail Notes Category Not es At Risk footcare Pt States Last PCP Visit: Date: Examination Category Sub-Category Detail Notes Category Not es Neurological SENSORY: Neurological exa m demonstrates, reduced light touch sensation, reduced sharp/dull pin prick discrimination , B/L, 5.07 monofilament test performed at plantar aspects of 5 varied sites per foot shows sensation, reduced , B/L Dermatologic SKIN FINDINGS: Skin exam reveal s Keratotic lesion(s) located at sub second metatarsal head B/L Orthopedic MUSCLE STRENGTH: 5/5 all groups in a symmetrical fashion, B/L General Examination GENERAL APPEARANCE: Reveals a pleasant, alert, well nourished, well-developed, well hydrated individual, who demonstrates proper attention to hygiene/body habitus, and is in no acute distress, Pt serves as own historian for office visit today ORIENTED: person, place, and t braulio Ophthalmology Referral DIABETES EYE EXAM Procedure Perform ed:: No Findings of Diabetic Eye Exam:: no retin opathy Vascular DP PULSES (B): 2/4, B/L PT PULSES (B): 2/4, B/L CAPILLARY FILL TIME: 3 secs. per digit. B/L TEMPERTURE GRADIENT (C): normal, B/L TROPHIC CONDITION-TEXTURE/ELASTICITY/TUR GOR/HAIR GROWTH (B): normal, B/L EDEMA (C): absent, B/L TELANGECTASIA: absent, B/L PIGMENTATION: normal, B/L Nails NAILS are: Elongated, overg rown, dystrophic, lytic, greater than 3mm thick, discolored and friable with crumbly malodorous subungual debris, TA, T1, T2, T3, T4, T5, T6, T7, T8, T9
--- OUTSIDE RECORDS SUMMARY | 2024-11-30 18:12 | XMS_ITS | Patient Health Record ---
Author Organization [facility] Address [address] [facility] [place] [address] Care Team Providers Care Contact Center Associate Name Role Phone Beverley PONCE, Isabell Primary Care Provider Unavail able Jasmyn Claire Unavailable [phone] Narciso Graff Unavailable [phone] Allergies No Known Allergies Results Component Value Reference Range Notes HEMOGLOBIN A1C (GLYCOHEMOGLO BIN) Reviewed date:08/10/2024 12:51:59 PM Interpretation: Performing Lab: Notes/Report: TOTAL HEMOGLOBIN (HGBA1C) 7 Reason For Referral No Information Medications Medication SIG (Take, Route, Frequency, Duration) Notes Start Date End Date Status Omeprazole 20 MG 1 capsule Orally Twi ce a day Active Custom Orthotics as directed A ctive Januvia Not-Taking Pioglitazone HCl Not -Taking Trulicity 0.75 MG/0.5ML as directed Subcutaneous Not-Taking Custom Orthotics as directed one pair and accomodate painful right 2nd mtpj to offload pressure Not-Taking Extra Depth Diabetic Shoes with 3 Pair Custom heat-molded multi-density innersoles for 1 year Dx: N ot-Taking Potassium Active Extra Depth Diabetic Shoes with 3 Pair Custom heat-molded multi-density innersoles for 1 year Dx: 06/05/2021 N ot-Taking Orthopedic Extra Depth Shoes With Custom Heat Molded Multidensity Innersoles as directed Wear Daily for as needed 04/07/2020 Not-Taking ASO Ankle/Foot Stablizing AFO As directed Wear Daily for as needed Not-Taking Immunizations Vaccine Route Administration Date Status Comme nts COVID-19 Pfizer BioNTech Vaccine Unknown 05/02/2021 Adm inistered COVID-19 Pfizer BioNTech Vaccine Unknown 05/23/2021 Adm inistered Influenza Unknown 09/01/2018 Refused Influenza Unknown 01/25/2020 Refused Social History Tobacco Use: Social History Observation Description Date Details (start date - stop date) Never Smoker NA - NA Tobacco Use/Smoking Question Answer Notes Are you a: nonsmoker Additional Findings: Tobacco Non-User Current no n-smoker Alcohol Screen Question Answer Notes Did you have a drink containing alcohol in the p ast year? No Points 0 Interpretation Negative Tobacco use other than smoking: Question Answer Notes Are you an other tobacco user? No Problems Problem Type SNOMED Code ICD Code Onset Dates Problem Status W/U Status Risk Notes Problem Polyneuropathy due to diabetes mellitus type I (526411112) Type 1 diabetes mellitus with diabetic polyneuropathy (E10.42) Active confirmed Problem Localized, primary osteoarthritis of the ankle and/or foot (658365262) Primary osteoarthritis, right ankle and foot (M19.071) Active confirmed Problem Localized, primary osteoarthritis of the ankle and/or foot (182670998) Primary osteoarthritis, left ankle and foot (M19.072) Active confirmed Problem Polyneuropathy due to type 2 diabetes mellitus (698776691) Type 2 diabetes mellitus with diabetic polyneuropathy (E11.42) Active confirmed Problem Polyneuropathy due to type 2 diabetes mellitus (194472379) Type 2 diabetes mellitus with diabetic polyneuropathy (E11.42) Active confirmed Vital Signs Blood pressure diastolic 70 mm Hg 11/09/2024 Height 5ft 7in in 11/09/2024 Blood pressure systolic 130 mm Hg 11/09/2024 Weight 117 lbs 11/09/2024 BMI 18.32 kg/m2 11/09/2024 Procedures Procedure Date Ordered Date Performed Result Body Sit e 13032-MUEGNQW NAIL, 6 OR MORE 11/09/2024 N/A 19776-KRHG SKIN LESIONS, 2 TO 4 11/09/2024 N/A Encounters Encounter Location Date Provider Diagnosis [facility] [address] [address] 12/09/2023 Narciso Graff Pain in left foot M79.672 ; Pain in right foot M79.671 ; Pain in right toe(s) M79.674 ; Tinea unguium B35.1 ; Pain in left toe(s) M79.675 ; Type 2 diabetes mellitus with diabetic polyneuropathy E11.42 ; Ingrowing nail L60.0 and Metatarsalgia, right foot M77.[address] [address] 03/09/2024 Narciso Graff Pain in left foot M79.672 ; Pain in right foot M79.671 ; Pain in right toe(s) M79.674 ; Tinea unguium B35.1 ; Pain in left toe(s) M79.675 ; Type 2 diabetes mellitus with diabetic polyneuropathy E11.42 ; Ingrowing nail L60.0 and Metatarsalgia, right foot M77.[address] [address] 05/18/2024 Narciso Graff Pain in left foot M79.672 ; Pain in right foot M79.671 ; Pain in right toe(s) M79.674 ; Tinea unguium B35.1 ; Pain in left toe(s) M79.675 ; Type 2 diabetes mellitus with diabetic polyneuropathy E11.42 ; Ingrowing nail L60.0 and Metatarsalgia, right foot M77.[address] [address] 07/13/2024 Narciso Graff Pain in left foot M79.672 ; Pain in right foot M79.671 ; Type 2 diabetes mellitus with diabetic polyneuropathy E11.42 ; Metatarsalgia, right foot M77.41 ; Metatarsalgia, left foot M77.42 and Plantar fascial fibromatosis M72.[address] [address] 08/10/2024 Narciso Graff Pain in left foot M79.672 ; Pain in right foot M79.671 ; Pain in right toe(s) M79.674 ; Tinea unguium B35.1 ; Pain in left toe(s) M79.675 ; Type 2 diabetes mellitus with diabetic polyneuropathy E11.42 ; Ingrowing nail L60.0 and Metatarsalgia, right foot M77.41 [address] [place] [address] 11/09/2024 Jasmyn Claire Type 2 diabetes mellitus with diabetic polyneuropathy E11.42 and Tinea unguium B35.1 [facility] [place] [address] [place] [address] 06/25/2024 Narciso Graff [facility] [address] 07/13/2024 Narciso Graff Assessments Encounter Date Diagnosis (ICD Code) Assessment Notes Treatment Notes Treatment Clinical Notes Section Notes 12/09/2023 Pain in left foot (ICD-10 - M79.672) 03/09/2024 Pain in left foot (ICD-10 - M79.672) 05/18/2024 Pain in left foot (ICD-10 - M79.672) 07/13/2024 Pain in right foot (ICD-10 - M79.671) 07/13/2024 Pain in left foot (ICD-10 - M79.672) 08/10/2024 Pain in left foot (ICD-10 - M79.672) 11/09/2024 Type 2 diabetes mellitus with diabetic polyneuropathy (ICD-10 - E11.42) 11/09/2024 Tinea unguium (ICD-10 - B35.1) 08/10/2024 Pain in right foot (ICD-10 - M79.671) 07/13/2024 Type 2 diabetes mellitus with diabetic polyneuropathy (ICD-10 - E11.42) 05/18/2024 Pain in right foot (ICD-10 - M79.671) 03/09/2024 Pain in right foot (ICD-10 - M79.671) 12/09/2023 Pain in right foot (ICD-10 - M79.671) 12/09/2023 Pain in right toe(s) (ICD-10 - M79.674) 03/09/2024 Pain in right toe(s) (ICD-10 - M79.674) 05/18/2024 Pain in right toe(s) (ICD-10 - M79.674) 07/13/2024 Metatarsalgia, right foot (ICD-10 - M77.41) 08/10/2024 Pain in right toe(s) (ICD-10 - M79.674) 08/10/2024 Tinea unguium (ICD-10 - B35.1) 07/13/2024 Metatarsalgia, left foot (ICD-10 - M77.42) 05/18/2024 Tinea unguium (ICD-10 - B35.1) 03/09/2024 Tinea unguium (ICD-10 - B35.1) 12/09/2023 Tinea unguium (ICD-10 - B35.1) 12/09/2023 Pain in left toe(s) (ICD-10 - M79.675) 03/09/2024 Pain in left toe(s) (ICD-10 - M79.675) 05/18/2024 Pain in left toe(s) (ICD-10 - M79.675) 07/13/2024 Plantar fascial fibromatosis (ICD-10 - M72.2) 08/10/2024 Pain in left toe(s) (ICD-10 - M79.675) 08/10/2024 Type 2 diabetes mellitus with diabetic polyneuropathy (ICD-10 - E11.42) 05/18/2024 Type 2 diabetes mellitus with diabetic polyneuropathy (ICD-10 - E11.42) 03/09/2024 Type 2 diabetes mellitus with diabetic polyneuropathy (ICD-10 - E11.42) 12/09/2023 Type 2 diabetes mellitus with diabetic polyneuropathy (ICD-10 - E11.42) 12/09/2023 Ingrowing nail (ICD-10 - L60.0) 03/09/2024 Ingrowing nail (ICD-10 - L60.0) 05/18/2024 Ingrowing nail (ICD-10 - L60.0) 08/10/2024 Ingrowing nail (ICD-10 - L60.0) 08/10/2024 Metatarsalgia, right foot (ICD-10 - M77.41) 05/18/2024 Metatarsalgia, right foot (ICD-10 - M77.41) 03/09/2024 Metatarsalgia, right foot (ICD-10 - M77.41) 12/09/2023 Metatarsalgia, right foot (ICD-10 - M77.41) Plan Of Treatment Pending Test Test Name Order Date X ray : Foot, right 3V 01/16/2018 86996-YREQPYI NAIL, 6 OR MORE 11/09/2024 20882-Exgm Destruction, 1-14 01/16/2018 93540-Cokw Destruction, -14 02/13/2018 41688-Njou Destruction, -14 03/06/2018 08679-Pore Destruction, -14 05/08/2018 72561-Mimz Destruction, -14 07/17/2018 76018-Lqjz Destruction, -14 09/01/2018 11752-Qtgr Destruction, -11/17/2018 31934-ZOTW SKIN LESIONS, 2 TO 4 11/27/19 17537-NRLQ SKIN LESIONS, 2 TO 4 02/27/20 56560-ORPF SKIN LESIONS, 2 TO 4 11/09/20 Next Appt Details Provider Name:Jasmyn Dunn liyah, 02/25/2025 09:45:00 AM, [address] [facility], [facility] [address], [place], [address], Insurance Providers Payer Name Payer Address Payer Phone Subscriber Number Group Number Insured Name Patient Relationship to Insured Coverage Start Date Coverage End Date [facility] [employer] Claims [address] [place] [address] [id number] Wilman Huggins Self - patient is the insured Medical (General) History Medical History History ICD Code Cerebral palsy Chicken pox Depression Diabetic Surgical History Surgery Date(Month/Year) neuroma surgery x4 1982, 1989 colonscopy 02/24/24 Hospitalization History Reason Date(Month/Year) [facility]- colitis 04/2023 [facility] [place] 09/2022 [facility] [place] GI bleed 01/2022 Food Posion 10/2019 [facility] High blood sugar 6103/2018
--- OUTSIDE RECORDS SUMMARY | 2024-11-30 18:12 | XMS_ITS ---
Author Organization [facility] Address [address] [facility] [place] [address] Care Team Providers Care Career Services Manager Name Role Phone Beverley PONCE, Isabell Primary Care Provider Unavail able Jasmyn Claire Unavailable [phone] Narciso Graff Unavailable [phone] Allergies No Known Allergies REASON FOR VISIT Painful nail(s) aggrevated by shoes and causing difficulty standing/walking. Medications Medication SIG (Take, Route, Frequency, Duration) Notes Start Date End Date Status Orthopedic Extra Depth Shoes With Custom Heat Molded Multidensity Innersoles as directed Wear Daily for as needed 04/07/2020 Not-Taking Extra Depth Diabetic Shoes with 3 Pair Custom heat-molded multi-density innersoles for 1 year Dx: 06/05/2021 N ot-Taking Custom Orthotics as directed A ctive Pioglitazone HCl Not -Taking Januvia Not-Taking ASO Ankle/Foot Stablizing AFO As directed Wear Daily for as needed Not-Taking Potassium Active Custom Orthotics as directed one pair and accomodate painful right 2nd mtpj to offload pressure Not-Taking Trulicity 0.75 MG/0.5ML as directed Subcutaneous Not-Taking Extra Depth Diabetic Shoes with 3 Pair Custom heat-molded multi-density innersoles for 1 year Dx: N ot-Taking Omeprazole 20 MG 1 capsule Orally Twi ce a day Active Social History Tobacco Use: Social History Observation [...] Are you an other tobacco user? No Vital Signs Height 5ft 7in in 08/10/2024 Weight 117 lbs 08/10/2024 BMI 18.32 kg/m2 08/10/2024 Encounters Encounter Location Date Provider Diagnosis [facility] [place] [address] [place] [address] 08/10/2024 Narciso Graff Pain in left foot M79.672 ; Pain in right foot M79.671 ; Pain in right toe(s) M79.674 ; Tinea unguium B35.1 ; Pain in left toe(s) M79.675 ; Type 2 diabetes mellitus with diabetic polyneuropathy E11.42 ; Ingrowing nail L60.0 and Metatarsalgia, right foot M77.41 Assessments Encounter Date Diagnosis (ICD Code) Assessment Notes Treatment Notes Treatment Clinical Notes Section Notes 08/10/2024 Pain in left foot (ICD-10 - M79.672) 08/10/2024 Pain in right foot (ICD-10 - M79.671) 08/10/2024 Pain in right toe(s) (ICD-10 - M79.674) 08/10/2024 Tinea unguium (ICD-10 - B35.1) 08/10/2024 Pain in left toe(s) (ICD-10 - M79.675) 08/10/2024 Type 2 diabetes mellitus with diabetic polyneuropathy (ICD-10 - E11.42) 08/10/2024 Ingrowing nail (ICD-10 - L60.0) 08/10/2024 Metatarsalgia, right foot (ICD-10 - M77.41) Plan Of Treatment Medication Medication Name Sig Start Date Stop Date Notes Custom Orthotics as directed Next Appt Details Follow Up: 3 Months, Reason: Provider Name:Jasmyn pelletier, 02/25/2025 09:45:00 AM, [address] [address], [place], [address], Procedure Notes * Category Sub-Category Detail Notes Debride Nail 6-10 Nail debridement Nail debridem ent performed extensively to reduce/remove overall nail length and girth, subungual debris, and necrotic tissue, by manual and electrical means with use of a nail nipper and/or dremel, to more viable healthy nail plate or bed tissue 6-10. Silver nitrate used for any petechial bleeding as necessary. Patient chooses, no pharmaceutical tx (07317) Keratoma Treatment Parring or Cutting o f Benign Hyperkeratotic Lesion(s) 79097 (2-4 Lesions) - The Benign hyperkeratotic lesions, as described above were pared, and/or cut utilizing a sterile #15 blade, tissue nippers, and/or dremel Progress Notes * Brynn HUGGINSOB:1980 (44 yo M)Acc No.[id number]:08/10/2024 Progress Note Patient:?Wilman Huggins Provider:?Narciso Graff DPM :1980???Age:44 Y???Sex:Male Camilo e:08/10/2024 Address:[address] [place], [place] [id number] Pcp:Isabell Lowery MD Subjective: * Chief Complaints: * ??? Painful nail(s) aggrevat ed by shoes and causing difficulty standing/walking. * HPI: ???Painful Nails:?Pt States Last PCP Visit:?Date:?03/10/2024 ???Foot Pain:?Nature:?aching.?Location:?B/L, Forefoot.?Onset:?unknown.?Aggravated:?any pressure, standing, walking.?Treatments:?poor adherence with orthoses and shoes in his house.?Severity/Quality:?moderate.? * ROS:?General/Constitutional:?Nausea?denies.?Vomiting?denies.?Hunger Thirst?denies.?Loss appetite?denies.?Chills?denies.?Fatigue?denies.?Fever?denies.?Night Sweats?denies.?Unexplained weight loss?denies.?Unexplained [...] 1982, 1989colonscopy 02/24/24 * Hospitalization/Major Diagno stic Procedure:[place] [place] blood sugar 615/2018Food Posion [place] [place] [place] [facility]23 * Family History:?Mother: anali marsh?Father: , diagnosed with Other malignant neoplasm of unspecified site.? * Social History:?Tobacco Use:?Tobacco Use/Smoking?Are you a:?nonsmoker ?Additional Findings: Tobacco Non-User?Current non-smoker ?Tobacco use other than smoking?Are you an other tobacco user??No ???Drugs/Alcohol:?Drugs?Have you used drugs other than those for medical reasons in the past 12 months??Yes ?Marijuana??Yes ?Alcohol Screen?Did you have a drink containing alcohol in the past year??No ?Points?0 ?Interpretation?Negative ???Miscellaneous:?Caffeine: yes, frequency:2 cups per day. ?no Children. ?Marital status: single. ?Occupation: N/A. * Medications:?TakingOmeprazol e 20 MG Capsule Delayed Release 1 capsule Orally Twice a dayPotassium Custom Orthotics as directed Taking Omeprazole 20 MG Capsule Delayed Release 1 capsule Orally Twice a dayTaking Potassium Taking Custom Orthotics as directed Not-Taking/PRNExtra Depth Diabetic Shoes with 3 Pair Custom heat-molded multi-density innersoles for 1 year Dx:Custom Orthotics as directed one pair and accomodate painful right 2nd mtpj to offload pressureTrulicity 0.75 MG/0.5ML Solution Pen-injector as directed Subcutaneous ASO Ankle/Foot Stablizing AFO As directed Wear DailyOrthopedic Extra Depth Shoes With Custom Heat Molded Multidensity Innersoles as directed Wear DailyExtra Depth Diabetic Shoes with 3 Pair Custom heat-molded multi-density innersoles for 1 year Dx:Pioglitazone HCl Januvia Medication List reviewed and reconciled with the patientNot-Taking/PRN Extra Depth Diabetic Shoes with 3 Pair Custom heat-molded multi-density innersoles for 1 year Dx:Not- Taking/PRN Custom Orthotics as directed one pair and accomodate painful right 2nd mtpj to offload pressureNot-Taking/PRN Trulicity 0.75 MG/0.5ML Solution Pen-injector as directed Subcutaneous Not-Taking/PRN ASO Ankle/Foot Stablizing AFO As directed Wear DailyNot-Taking/PRN Orthopedic Extra Depth Shoes With Custom Heat Molded Multidensity Innersoles as directed Wear DailyNot-Taking/PRN Extra Depth Diabetic Shoes with 3 Pair Custom heat-molded multi-density innersoles for 1 year Dx:Not-Taking/PRN Pioglitazone HCl Not-Taking/PRN Januvia Medication List reviewed and reconciled with the patient * Allergies:?N.K.D.A.yes[Aller gies Verified] Objective: * Vitals:?Ht: 5ft 7in, Wt:117, BMI:18.32, Shoe size: 8.5, BS: 102, Ht-cm: 170.18 cm, Wt-k.07 kg. * ???Past Orders: ???Lab:HEMOGLOBIN A1C (GLYCO HEMOGLOBIN) (Order Date - 08/10/2024) (Collection Date - 08/10/2024) ? Value Reference Range ?TOTAL HEMOGLOBIN (HGBA1C) 7 * Examination: ???General Examination: ?GENERAL APPEARANCE:?pleasant, alert, well nourished, well developed, well hydrated, with good attention to hygene/body habitus, and in no acute distress.?ORIENTED:?person,place, and time.?Neurological: ?SENSORY:? Neurological exam demonstrates, 5.07 monofilament test performed at plantar aspects of 5 varied sites per foot shows sensation, reduced , B/L.?Vascular: ?DP PULSES(B):?2/4, B/L.?PT PULSES(B):?2/4, B/L.?CAPILLARY FILL TIME:?3 secs. per digit. B/L.?TROPHIC CONDITION-TEXTURE/ELASTICITY/TURGOR/HAIR GROWTH(B):?normal, B/L.?TEMPERTURE GRADIENT(C):?normal, B/L.?PIGMENTATION:?normal, B/L.?EDEMA(C):?absent, B/L.?TELANGECTASIA:?absent, B/L.?Dermatologic: ?SKIN FINDINGS:? Skin exam reveals Keratotic lesion(s) located at, SUB MTH (s), 2, Left , Right .?VERRUCA:? resolved.?Orthopedic: ?FOOT MORPHOLOGY:? Pes Planus structure, B/L.?FOOTWEAR:? worn, nonsupportive.?Ophthalmology Referral: ?DIABETES EYE EXAM?Nails: ?NAILS are:?Elongated, overgrown, dystrophic, lytic, greater than 3mm thick, discolored and friable with crumbly malodorous subungual debris, with dull to no pain on palpation due to neuropathy, 1-5 Right foot, T1, T2, T3.? Assessment: * Assessment: 1.?Pain in left foot - M79.6 72?2.?Pain in right foot - M79.671?3.?Pain in right toe(s) - M79.674?4.?Tinea unguium - B35.1 (Primary)?5.?Pain in left toe(s) - M79.675?6.?Type 2 diabetes mellitus with diabetic polyneuropathy - E11.42?7.?Ingrowing nail - L60.0?8.?Metatarsalgia, right foot - M77.41? Plan: * Treatment: * Procedures:?Debride Nail 6-10:?Nail debridement?Nail debridement performed extensively to reduce/remove overall nail length and girth, subungual debris, and necrotic tissue, by manual and electrical means with use of a nail nipper and/or dremel, to more viable healthy nail plate or bed tissue 6-10. Silver nitrate used for any petechial bleeding as necessary. Patient chooses, no pharmaceutical tx (39798).?Keratoma Treatment:?Parring or Cutting of Benign Hyperkeratotic Lesion(s)?13811 (2-4 Lesions) - The Benign hyperkeratotic lesions, as described above were pared, and/or cut utilizing a sterile #15 blade, tissue nippers, and/or dremel.? * Procedure Codes:?93500 DEBRI DE NAIL, 6 OR MORE, Modifiers: XS 25182 TRIM SKIN LESIONS, 2 TO 4, Modifiers: XS * Preventive Medicine:? ??Counseling:?Discussion:?-13: Office or other outpatient visit for the evaluation and management of an established patient, which required a medically appropriate history and/or examination and LOW level of DECISION MAKING for: 1 STABLE ACUTE UNCOMPLICATED PROBLEM, 2 OR MORE MINOR PROBLEMS, OR 1 STABLE CHRONIC PROBLEM, THAT POSE(S) A LOW RISK FOR MORBIDITY/MORTALITY. The visit on the day of the encounter encompassed interpreting the data and educating the patient as to the nature of their condition, treatment options available according to their individual PMH, meds, allergies, and overall health/living conditions, as well as any potential risks or complications that may occur from a failure to adhere to, and participate in, the recommended course of therapy. The discussion included a complete verbal, and/or written explanation of the examination results, any x-rays taken, the proposed diagnosis, and outline of the treatment plan. A schedule for future care needs was also explained. The patient verbalized an understanding of the instructions at this time and agreed to be an active participant in their treatment. If the patient should think of any questions or concerns after the visit, I have encouraged the patient to call the office.?Orthotic Dispensing:?The patient presents today for fitting and dispensing of orthotics. The inserts were checked against the prescription and found to be accurate. They were properly fitted to the patients feet and shoes in both weight-bearing and non-weight bearing attitudes. The patient was instructed to gradually increase the amount of time they are wearing the orthoses, starting with one hour the first day and thereon progressively increasing the amount of time used by one hours per day until they are comfortable to be worn all day and with all activities. They were asked to call the office if any signs of skin irritation were noted including redness, blistering or callous formation. The patient verbally indicated a full understanding of all the above information, Handout reviewed and dispensed, The patient signed confirmation form indicating receipt of DME device.? * Follow Up:?3 Months * Images: * Sign off status: Completed true * Provider:?Narciso Graff DPM Date:? 024 Generated for Yobani carroll/Wayne/Sadie on:?11/30/2024 06:11 PM EST History and Physical Notes * HPI (History of Present Illness) Category Sub-Category Detail Notes Category Not es Painful Nails Pt States Last PCP Visit: Date:: 03/10/2024 Foot Pain Nature: aching Location: B/L, Forefoot Onset: unknown Aggravated: any pressure, standi ng, walking Treatments: poor adherence with orthoses and shoes in his house Severity/Quality: moderate Examination Category Sub-Category Detail Notes Category Not es Neurological SENSORY: Neurological exa m demonstrates, 5.07 monofilament test performed at plantar aspects of 5 varied sites per foot shows sensation, reduced , B/L Dermatologic SKIN FINDINGS: Skin exam reveal s Keratotic lesion(s) located at, SUB MTH (s), 2, Left , Right VERRUCA: resolved Orthopedic FOOT MORPHOLOGY: Pes Planus structure, B/ L FOOTWEAR: worn, nonsupportive General Examination GENERAL APPEARANCE: pleasant , alert, well nourished, well developed, well hydrated, with good attention to hygene/body habitus, and in no acute distress ORIENTED: person,place, and ti me Ophthalmology Referral DIABETES EYE EXAM Diabetic Retinopa thy Screening:: Yes Vascular DP PULSES (B): 2/4, B/L PT PULSES (B): 2/4, B/L CAPILLARY FILL TIME: 3 secs. per digit. B/L TEMPERTURE GRADIENT (C): normal, B/L TROPHIC CONDITION-TEXTURE/ELASTICITY/TUR GOR/HAIR GROWTH (B): normal, B/L EDEMA (C): absent, B/L TELANGECTASIA: absent, B/L PIGMENTATION: normal, B/L Nails NAILS are: Elongated, overg rown, dystrophic, lytic, greater than 3mm thick, discolored and friable with crumbly malodorous subungual debris, with dull to no pain on palpation due to neuropathy, 1-5 Right foot, T1, T2, T3
[2024-11-30 18:14] LABS: SLIDE REVIEW VERIFIED
[2024-11-30] MEDS: cefTRIAXone sodium 1 GM VIAL IVPUSH (18:14)
[2024-11-30 18:23] LABS: Appearance Urine Clear; Color Urine Yellow; Glucose Urine UA >=1000 mg/dL (Negative); Leukocyte Esterase Urine Negative (Negative); Nitrite Urine Negative (Negative); UMIC TRIGGER UACC YES; Urine Blood Large (3+) (Negative); Urine Ketones >=160 mg/dL (Negative); Urine Protein 30 (1+) mg/dL (Neg-Trace)
[2024-11-30 18:31] LABS: Influenza A PCR NEGATIVE (Negative); Influenza B PCR NEGATIVE (Negative); Resp Syncy Virus RNA Qual PCR NEGATIVE (Negative); SARS COV2 PCR INHOUSE NEGATIVE (Negative)
[2024-11-30 18:38] LABS: Glucose, Whole Blood 369 mg/dL (60-115)
[2024-11-30 18:40] LABS: Bacteria Urine None Seen (None Seen); RBC Urine 0-2 /HPF (0-2); Squamous Epithelial Cell Urine 0-2 /HPF (0-2); WBC Urine 0-5 /HPF (0-5)
[2024-11-30 19:36] LABS: VBG Base Excess -21.8 mmol/L; VBG HCO3 5 mmol/L (22-26); VBG pCO2 16 mmHg; VBG pO2 95 mmHg
[2024-11-30 19:37] LABS: Venous Blood Gas Refer to POC result
[2024-11-30 19:48] LABS: Glucose, Whole Blood 254 mg/dL (60-115)
[2024-11-30 19:52] LABS: Anion Gap 29 (12-20); Blood Urea Nitrogen 51 mg/dL (9-16); Calcium 7.2 mg/dL (8.4-10.2); Carbon Dioxide 6 mmol/L (22-29); Chloride 98 mmol/L (96-108); Creatinine Clr Calc Pharmacy 46.4; Estimated Glomerular Filt Rate 49; Glucose Random 287 mg/dL (60-115); Potassium 3.5 mmol/L (3.3-5.1); Sodium 129 mmol/L (135-145)
--- NOTE | 2024-11-30 19:56 | P.HPCC_ITS ---
History of Present Illness Date of Service: 11/30/24 Attending physician on admission: Cory Shirley Chief Complaint: DKA The patient is a late onset type 1 diabetic, mild depression, cerebral palsy (spastic diplegic), gastroparesis, pancolitis, nephrolithiasis, GERD, who presents to us after being seen in the emergency room with complaints of 3 days' worth of nausea, vomiting and diarrhea who has missed his insulin administration were the past 3 days.? The patient was transferred via EMS.? On arrival he had complained of diffuse abdominal pain nausea and vomiting. ER workup reveals a white count 21.3, H and H of 16.745.8 respectively, platelets 411.? Sodium 119, potassium 4.4, chloride 77, carbon dioxide less than 5, BUN 57, creatinine 2.44, random glucose 746, beta hydroxybutyrate acid 15.2.? Urinalysis revealed proteinuria and glucosuria otherwise no UTI.? Respiratory panel negative.? Chest x-ray no acute disease.? Right wrist x-ray shows findings consistent with possible fractures of the distal scaphoid and distal radius. Patient was given 1 L of normal saline, 10 units of IV insulin and was placed on an insulin drip at 6 units/hour, he also received Zofran and morphine for pain.? Patient was thus transferred to the ICU for further care. 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 Surgical History Surgical History History of surgery on lower extremity Hx of foot surgery Hx of esophagitis History of esophagogastroduodenoscopy (EGD) Social History 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 have visiting nurse or other home services: Yes Alcohol intake: former Patient Tobacco Use Status: Never used Tobacco e-Cigarette/Vaping Use: Never Used Second Hand Smoke Exposure: No Use of substances other than those prescribed or required for medical reasons: No Substance Use Type: Marijuana Have you been hit, kicked, punched, or otherwise hurt by someone within the past year? If so, by whom?: No Do you feel safe in your current relationship?: No Current Relationship Is there a partner from a previous relationship who is making you feel unsafe now?: No Are you made to feel afraid or neglected: No Advance Directives: No Advance Directives Information Provided: Yes Do you have a plan to hurt others: No Plan Recently lost weight without trying: Unsure Nutrition Risks: Poor intake 0-25% >4 days Poor oral hygiene: No service: No Current occupational status: disabled Cognitive needs: Yes Hearing needs: No Vision needs: Yes Meds Allergies Allergy/AdvReac Type Severity Reaction Status Date / Time No Known Allergies Allergy Verified 11/30/24 17:02 Active Medications: Current Medications Heparin Sodium (Porcine) (Heparin Sodium,Porcine 5,000 Unit/Ml Vial) 5,000 unit SUBCUT Q12H [facility] Insulin Human Regular (Myxredlin) 100 unit in 100 mls @ 6 mls/hr IVCONT .[id number] [facility]; Protocol Last Titration: 11/30/24 18:47 Dose: 3 unit/hr, 3 mls/hr Sodium Chloride (Ns) 1,000 mls @ 200 mls/hr IVCONT .Q5H [facility] Stop: 12/01/24 00:44 Dextrose/Lactated Ringer's (D5lr) 1,000 mls @ 125 mls/hr IVCONT .Q8H [facility] Home Medications ?Medication ?Instructions ?Recorded ?Confirmed ?Last Taken ?Type glipizide 5 mg tablet 5 mg PO BID 11/30/24 Unknown History insulin glargine 100 unit/mL (3 unit subcut 11/30/24 Unknown History mL) subcutaneous pen (Lantus Solostar U-100 Insulin) Physical Exam 2 Vital Signs: Vital Signs: Last Vital Signs Temp 97.3 F 11/30/24 19:26 Pulse 114 H 11/30/24 19:26 Resp 20 01/21/25 19:26 BP 136/82 11/30/24 19:26 Pulse Ox 100 11/30/24 19:26 O2 Del Method Room Air 11/30/24 19:26 BMI result Body Mass Index 20.6 General:? Alert oriented to person and place, not to time. ?Although the patient is able to follow basic commands, he is very confused, he tends to confused the questions asked and keeps saying ?I am tired?, ?I can not think?. ? Skin:? Multiple tattoos throughout the upper extremities.? Intact, no lesions, edema, erythema, clubbing or cyanosis.? No ulcers. HEENT:? Head is normocephalic, atraumatic, pupils equal round reactive to light accommodation bilaterally.? Extraocular movements appear intact.? Buccal mucosa is moist, Neck is supple without lymphadenopathy. Cardiac:? Tachycardic 106 beats per minute., no murmurs rubs or gallops. Pulmonary:? Clear to auscultation, no wheezes, rales or rhonchi. Abdomen:? Protuberant, positive bowel sounds in all 4 quadrants.? Soft, nontender, no rebound or guarding.? Musculoskeletal:? 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 Lower extremity range of motion is limited due to chronic weakness in the setting of his cerebral palsy. ?Right hand and wrist shows significant discomfort over the snuffbox area and distal radius, no discrete bone abnormality.? no edema. ?Range of motion of all fingers is normal.? Thumb opposition is normal.? Capillary refill less than 2 seconds throughout all fingers.? 2+ pulse at the radial aspect. ?There is no leg edema , no calf tenderness , no leg asymmetry.? Gait not assessed at this point. Neurologic:? As above, confused. Vascular:? 2+ pulses upper and lower extremities distally. Results Labs 12/01/24 04:31 12/01/24 04:31 Labs: Laboratory Results - last 24 hr 11/30/24 11/30/24 11/30/24 17:08 17:12 17:15 MCV 85.9 MCH 31.3 MCHC 36.5 H RDW 11.8 Plt Count 411 H D MPV 9.6 Immature Gran % (Auto) 1.0 H Neut % (Auto) 83.4 H Lymph % (Auto) 6.7 L Charles % (Auto) 8.7 Eos % (Auto) 0.0 Baso % (Auto) 0.2 Lymph # (Auto) 1.4 Charles # (Auto) 1.8 H Eos # (Auto) 0.0 Baso # (Auto) 0.1 Abs Immat Gran (auto) 0.21 H Absolute Neuts (auto) 17.7 H Absolute Nucleated RBC 0.000 Nucleated RBC % (auto) 0.0 Smear Tech's Comments VERIFIED VBG pH VBG pCO2 VBG pO2 VBG HCO3 VBG O2 Saturation VBG Base Excess Anion Gap TNP Estim Creat Clear Calc 29.1 Estimated GFR 29 POC Glucose > 600 H* > 600 H* Random Glucose 746 H* Lactic Acid Calcium 9.2 Magnesium 2.9 H Total Bilirubin 1.2 H AST 26 ALT 16 Alkaline Phosphatase 151 H Total Protein 9.1 H Albumin 5.0 Lipase 5 L Beta-Hydroxybutyrate 15.28 H Urine Color Urine Appearance Urine pH Ur Specific Pat[place] Urine Protein Urine Glucose (UA) Urine Ketones Urine Blood Urine Nitrite Ur Leukocyte Esterase Urine RBC Urine WBC Ur Squamous Epith Cells Urine Bacteria Hyaline Casts Influenza Type A (PCR) Influenza Type B (PCR) RSV RNA Qual (PCR) SARS-CoV-2 RNA (RT-PCR) 11/30/24 11/30/24 11/30/24 17:16 17:40 18:18 MCV MCH MCHC RDW Plt Count MPV Immature Gran % (Auto) Neut % (Auto) Lymph % (Auto) Charles % (Auto) Eos % (Auto) Baso % (Auto) Lymph # (Auto) Charles # (Auto) Eos # (Auto) Baso # (Auto) Abs Immat Gran (auto) Absolute Neuts (auto) Absolute Nucleated RBC Nucleated RBC % (auto) Smear Tech's Comments VBG pH 7.05 L* VBG pCO2 16 VBG pO2 48 VBG HCO3 5 L VBG O2 Saturation 68.0 VBG Base Excess -23.2 Anion Gap Estim Creat Clear Calc Estimated GFR POC Glucose Random Glucose Lactic Acid 1.8 Calcium Magnesium Total Bilirubin AST ALT Alkaline Phosphatase Total Protein Albumin Lipase Beta-Hydroxybutyrate Urine Color Yellow Urine Appearance Clear Urine pH 5.0 Ur Specific Patton 1.020 Urine Protein 30 (1+) H Urine Glucose (UA) >=1000 H Urine Ketones >=160 Urine Blood Large (3+) H Urine Nitrite Negative Ur Leukocyte Esterase Negative Urine RBC 0-2 Urine WBC 0-5 Ur Squamous Epith Cells 0-2 Urine Bacteria None Seen Hyaline Casts 6-10 Influenza Type A (PCR) NEGATIVE Influenza Type B (PCR) NEGATIVE RSV RNA Qual (PCR) NEGATIVE SARS-CoV-2 RNA (RT-PCR) NEGATIVE 11/30/24 11/30/24 11/30/24 18:33 19:26 19:28 MCV MCH MCHC RDW Plt Count MPV Immature Gran % (Auto) Neut % (Auto) Lymph % (Auto) Charles % (Auto) Eos % (Auto) Baso % (Auto) Lymph # (Auto) Charles # (Auto) Eos # (Auto) Baso # (Auto) Abs Immat Gran (auto) Absolute Neuts (auto) Absolute Nucleated RBC Nucleated RBC % (auto) Smear Tech's Comments VBG pH 7.10 L* VBG pCO2 16 VBG pO2 95 VBG HCO3 5 L VBG O2 Saturation 96.0 VBG Base Excess -21.8 Anion Gap 29 H Estim Creat Clear Calc 46.4 Estimated GFR 49 POC Glucose 369 H* Random Glucose 287 H Lactic Acid Calcium 7.2 L D Magnesium Total Bilirubin AST ALT Alkaline Phosphatase Total Protein Albumin Lipase Beta-Hydroxybutyrate Urine Color Urine Appearance Urine pH Ur Specific [place] Urine Protein Urine Glucose (UA) Urine Ketones Urine Blood Urine Nitrite Ur Leukocyte Esterase Urine RBC Urine WBC Ur Squamous Epith Cells Urine Bacteria Hyaline Casts Influenza Type A (PCR) Influenza Type B (PCR) RSV RNA Qual (PCR) SARS-CoV-2 RNA (RT-PCR) 11/30/24 19:43 MCV MCH MCHC RDW Plt Count MPV Immature Gran % (Auto) Neut % (Auto) Lymph % (Auto) Charles % (Auto) Eos % (Auto) Baso % (Auto) Lymph # (Auto) Charles # (Auto) Eos # (Auto) Baso # (Auto) Abs Immat Gran (auto) Absolute Neuts (auto) Absolute Nucleated RBC Nucleated RBC % (auto) Smear Tech's Comments VBG pH VBG pCO2 VBG pO2 VBG HCO3 VBG O2 Saturation VBG Base Excess Anion Gap Estim Creat Clear Calc Estimated GFR POC Glucose 254 H Random Glucose Lactic Acid Calcium Magnesium Total Bilirubin AST ALT Alkaline Phosphatase Total Protein Albumin Lipase Beta-Hydroxybutyrate Urine Color Urine Appearance Urine pH Ur Specific [place] Urine Protein Urine Glucose (UA) Urine Ketones Urine Blood Urine Nitrite Ur Leukocyte Esterase Urine RBC Urine WBC Ur Squamous Epith Cells Urine Bacteria Hyaline Casts Influenza Type A (PCR) Influenza Type B (PCR) RSV RNA Qual (PCR) SARS-CoV-2 RNA (RT-PCR) Assessment and Plan (1) Diabetic keto-acidosis: Status: Acute Plan PLAN OF CARE: Patient will be admitted to the ICU, monitor vital signs, I's and O's. Neuro checks. I have discontinued normal saline we placed him on LR/D5, POC is every 1 hour, chemistry every 4 hours and replete potassium now, replace IV calcium. I have called the emergency medicine physician to kindly asked him to splint his right wrist as he clearly has a transverse fracture of the distal radius with snuffbox tenderness. ?Pain control with low-dose opioids, I can not give him NSAIDs given his GRAY. We will need to verify his home medications in order to resume his basal dose Lantus. Orthopedic consult in the morning, patient likely will need a permanent cast. Is reported the patient had experienced a fall however there are no details about this incident, I have called his caregiver as well as his mother and left a message to try to clarify some of the history as well as the bleeding events. We will do a head CT to rule out any intracranial pathology due to the fall or leading to it; or it could be due to Morphine effect given in the ED. We will do a right wrist CT at the same time for further clarification of the above suspected fractures. GI PROPHYLAXIS: ?P.o. Protonix DVT PROPHYLAXIS: ?Heparin subQ q.12 hours. Critical care time used for critical evaluation of this patient, diagnosis, treatment and coordination of care, review her records and documentation TOTAL CRITICAL CARE TIME 90? MIN . discussion and coordination with consultants, completely separate from any procedures performed. Patient's care was discussed in detail with Dr. Shirley who is aware of all the above as well as the plan of care for this patient.
[2024-11-30] MEDS: Dextrose 5 % and Lactated Ring 1,000 ML 125 ML IVCONT (20:27)
[2024-11-30] MEDS: Calcium Gluconate/NaCl,Iso-Osm 2 GM/100 ML PLAST..BAG IV (20:27)
--- NOTE | 2024-11-30 20:27 | PHA.MEDREC ---
Addendum entered by Nate Carcamo [facility] 12/01/24 16:27: Doctor Abner is aware of the problem with insulin doses. Addendum entered by Nate Carcamo [facility] 12/01/24 16:13: Spoke to patient, he was not able to name meds/dose that he takes at home. After I named the med, he then said yes, he takes it. For Lantus, he said he takes the lightest dose daily. I asked him for a number, if it's 1...2..3 units but he only said it's the lightest dose. For Novolog, he said he takes it but doesn't know the dose. For glipizide, he said he takes it once a day. He said his last dose of medication was about a week ago, he hasn't taken any meds since he fractured his wrist. Addendum entered by Nate Carcamo [facility] 11/30/24 20:45: Med rec was reviewed by [facility]. Notified Alejo Gray of the problem with med rec. Original Note: Pharmacy Consult ? Medication Reconciliation Pharmacy has completed the medication reconciliation. Tried to speak with patient, however he did not respond to his name. called and spoke to primary contact marta, however she didn't know any of patients medications. Also called patient mother on file and there was no answer. was Unable to confirm med list. will notify the doctor.
[2024-11-30] MEDS: Heparin Sodium,Porcine 5,000 UNIT/ML VIAL 5000 UNIT SUBCUT (20:33)
[2024-11-30] MEDS: Potassium Chloride Packet 20 MEQ PACKET 40 MEQ PO (20:33)
[2024-11-30 21:11] LABS: Glucose, Whole Blood 223 mg/dL (60-115)
[2024-11-30 22:04] LABS: Glucose, Whole Blood 236 mg/dL (60-115)
[2024-11-30 23:09] LABS: Glucose, Whole Blood 197 mg/dL (60-115)
[2024-12-01] VITALS (19 sets, daily range): BP systolic 101–163; BP diastolic 55–95; PULSE 82–103; RESP 13–24; TEMP 36.4–37.5; O2SAT 94–100; BMI 18.1; BMI 19.1
[2024-12-01 00:17] LABS: Glucose, Whole Blood 220 mg/dL (60-115)
[2024-12-01 00:38] LABS: Venous Blood Gas Refer to POC result
[2024-12-01 00:40] LABS: VBG Base Excess -12.1 mmol/L; VBG HCO3 11 mmol/L (22-26); VBG pCO2 20 mmHg; VBG pH 7.34 (7.32-7.43); VBG pO2 71 mmHg
[2024-12-01 00:59] LABS: Alanine Aminotransferase 15 U/L (0-40); Albumin Level 3.7 g/dL (3.5-5.0); Alkaline Phosphatase 95 U/L (39-117); Anion Gap 23 (12-20); Aspartate Amino Transferase 27 U/L (5-37); Bilirubin Total 0.9 mg/dL (0.0-1.0); Blood Urea Nitrogen 37 mg/dL (9-16); Calcium 8.4 mg/dL (8.4-10.2); Carbon Dioxide 10 mmol/L (22-29); Chloride 103 mmol/L (96-108); Creatinine Clr Calc Pharmacy 44.2; Estimated Glomerular Filt Rate 54; Glucose Random 206 mg/dL (60-115); Potassium 3.7 mmol/L (3.3-5.1); Sodium 132 mmol/L (135-145); Total Protein 6.8 g/dL (6.5-8.0)
[2024-12-01 01:02] LABS: Glucose, Whole Blood 200 mg/dL (60-115)
[2024-12-01 02:00] LABS: Glucose, Whole Blood 185 mg/dL (60-115)
[2024-12-01] MEDS: Metoclopramide HCl 10 MG/2 ML VIAL 5 MG IVPUSH (02:35)
[2024-12-01 03:19] LABS: Glucose, Whole Blood 174 mg/dL (60-115)
[2024-12-01 04:06] LABS: Glucose, Whole Blood 167 mg/dL (60-115)
[2024-12-01] MEDS: Dextrose 5 % and Lactated Ring 1,000 ML 100 ML IVCONT (04:35)
[2024-12-01] MEDS: Flu Vacc TS2024-25(6mos up)/PF 0.5 ML SYRINGE IM (04:36)
[2024-12-01 04:38] LABS: VBG Base Excess -3.4 mmol/L; VBG HCO3 17 mmol/L (22-26); VBG pCO2 22 mmHg; VBG pH 7.49 (7.32-7.43); VBG pO2 50 mmHg
[2024-12-01 04:39] LABS: Venous Blood Gas Refer to POC result
[2024-12-01 04:56] LABS: Alanine Aminotransferase 15 U/L (0-40); Albumin Level 3.5 g/dL (3.5-5.0); Alkaline Phosphatase 86 U/L (39-117); Anion Gap 12 (12-20); Aspartate Amino Transferase 26 U/L (5-37); Blood Urea Nitrogen 30 mg/dL (9-16); Calcium 8.6 mg/dL (8.4-10.2); Carbon Dioxide 19 mmol/L (22-29); Chloride 106 mmol/L (96-108); Creatinine Clr Calc Pharmacy 53.7; Estimated Glomerular Filt Rate > 60; Glucose Random 153 mg/dL (60-115); Phosphorus 2.2 mg/dL (2.7-4.5); Sodium 134 mmol/L (135-145); Total Protein 6.2 g/dL (6.5-8.0)
[2024-12-01 05:06] LABS: Glucose, Whole Blood 142 mg/dL (60-115)
[2024-12-01 05:10] LABS: Basophils Percent Auto 0.1 % (0-2); Hematocrit 35.5 % (42.0-52.0); Imm Gran Abs Auto 0.07 X10*3/uL (0.00-0.03); Imm Gran Pct Auto 0.5 % (0.0-0.4); Lymphocytes Percent Auto 7.3 % (20-40); Mean Corpuscular Volume 82.6 fL (80.0-98.0); Mean Platelet Volume 8.7 fL (9.4-12.4); Monocytes Absolute Auto 0.9 X10*3/uL (0.1-1.2); Monocytes Percent Auto 6.8 % (2-11); Neutrophils Absolute Auto 11.8 x10*3/uL (2.0-8.3); Neutrophils Percent Auto 85.3 % (45-73); Platelet Count 257 X10*3/uL (160-400); Red Cell Distribution Width 11.8 % (11.0-16.0); SCAN SMEAR FLAG 1; White Blood Count 13.9 X10*3/uL (4.8-10.8)
[2024-12-01 05:16] LABS: Hemoglobin 11.9 g/dl (14.0-18.0); MANUAL DIFF FLAG NO; Mean Corpuscular HGB Conc 33.5 g/dl (31.0-36.0); Mean Corpuscular Hemoglobin 27.7 pg (27.0-33.0)
[2024-12-01] MEDS: Omeprazole 40 MG CAPSULE.DR PO (05:23)
[2024-12-01 06:13] LABS: Glucose, Whole Blood 105 mg/dL (60-115)
[2024-12-01 07:19] LABS: Glucose, Whole Blood 98 mg/dL (60-115)
[2024-12-01] MEDS: ondansetron HCL 4 MG/2 ML VIAL IVPUSH ×2 (07:44→15:07)
[2024-12-01 07:59] LABS: Glucose, Whole Blood 85 mg/dL (60-115)
[2024-12-01] MEDS: Potassium Chloride Packet 20 MEQ PACKET 80 MEQ PO (08:16)
[2024-12-01] MEDS: Sodium,Potassium Phosphates POWD.PACK 2 PACKET PO (08:16)
[2024-12-01] MEDS: Heparin Sodium,Porcine 5,000 UNIT/ML VIAL 5000 UNIT SUBCUT ×2 (08:17→21:06)
[2024-12-01] MEDS: Insulin Glargine,Hum.rec.anlog 100 UNIT/ML 10 ML VIAL 10 UNIT SUBCUT ×2 (08:19→14:46)
--- NOTE | 2024-12-01 08:36 | P.CONOP_ITS ---
History of Present Illness HPI Consult date: 12/01/24 Chief complaint: DKA Narrative: Patient is a 44-year-old male who is currently admitted to the ICU for treatment of diabetic ketoacidosis. While in the ED, the patient was complaining of wrist pain, and x-rays were taken revealing a nondisplaced, impacted distal radius fracture of the right wrist. Today, the patient reports that he is not feeling well, but he is experiencing minimal pain right wrist. Patient states that he fell approximately 1 week ago, and did not receive evaluation because he ?did not even realize I fell?. CT scan did show distal radius fracture, with no evidence of scaphoid fracture. Denies any numbness or tingling in the right hand. No other acute complaints or concerns at this time. 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 Surgical History Surgical History History of surgery on lower extremity Hx of foot surgery Hx of esophagitis History of esophagogastroduodenoscopy (EGD) Social History 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 have visiting nurse or other home services: Yes Alcohol intake: former Patient Tobacco Use Status: Never used Tobacco e-Cigarette/Vaping Use: Never Used Second Hand Smoke Exposure: No Use of substances other than those prescribed or required for medical reasons: No Substance Use Type: Marijuana Have you been hit, kicked, punched, or otherwise hurt by someone within the past year? If so, by whom?: No Do you feel safe in your current relationship?: No Current Relationship Is there a partner from a previous relationship who is making you feel unsafe now?: No Are you made to feel afraid or neglected: No Advance Directives: No Advance Directives Information Provided: Yes Do you have a plan to hurt others: No Plan Recently lost weight without trying: Unsure Nutrition Risks: Poor intake 0-25% >4 days Poor oral hygiene: No service: No Current occupational status: disabled Cognitive needs: Yes Hearing needs: No Vision needs: Yes Meds Allergies Allergy/AdvReac Type Severity Reaction Status Date / Time No Known Allergies Allergy Verified 11/30/24 17:02 Active Medications: Current Medications Heparin Sodium (Porcine) (Heparin Sodium,Porcine 5,000 Unit/Ml Vial) 5,000 unit SUBCUT Q12H [facility] Last Admin: 12/01/24 08:17 Dose: 5,000 unit Insulin Glargine (Insulin Glargine,Hum.Rec.Anlog 100 Unit/Ml 10 Ml Vial) 10 unit SUBCUT DAILY [facility] Last Admin: 12/01/24 08:19 Dose: 10 unit Insulin Human Lispro (Insulin Lispro 100 Unit/Ml 3 Ml Vial) 0 unit SUBCUT QIDACHS [facility]; Protocol Omeprazole (Omeprazole 40 Mg Capsule.Dr) 40 mg PO DAILY@0630 [facility] Last Admin: 12/01/24 05:23 Dose: 40 mg Ondansetron HCl (Ondansetron Hcl 4 Mg/2 Ml Vial) 4 mg IVPUSH Q8H PRN PRN Reason: Nausea and Vomiting Last Admin: 12/01/24 07:44 Dose: 4 mg Home Medications ?Medication ?Instructions ?Recorded ?Confirmed ?Last Taken ?Type glipizide 5 mg tablet 5 mg PO BID 11/30/24 Unknown History insulin glargine 100 unit/mL (3 unit subcut 11/30/24 Unknown History mL) subcutaneous pen (Lantus Solostar U-100 Insulin) Physical Exam 2 Vital Signs: Vital Signs: Last Vital Signs Temp 98.5 F 12/01/24 08:00 Pulse 96 12/01/24 08:00 Resp 18 12/01/24 08:00 BP 142/73 H 12/01/24 08:00 Pulse Ox 97 12/01/24 08:00 O2 Del Method Room Air 12/01/24 08:00 BMI result Body Mass Index 18.1 Extrem: Other: Patient is alert, oriented, and in no acute distress. Neuro: Normal sensation of the tips of all digits of the right hand at this time Vascular: Cap refill brisk Pain: Patient reports some mild tenderness to palpation about the right wrist No pain with range of motion of the right hand ROM: Patient is able to flex and extend all digits of the right hand fully and without difficulty Skin: No lacerations or abrasions. General: No ecchymosis, erythema, or evidence of infection. Psych: Appears grossly normal Affect normal Attitude cooperative Results Labs 12/01/24 04:31 12/01/24 04:31 Labs: Abnormal lab results 11/30/24 11/30/24 11/30/24 Range/Units 17:08 17:12 17:15 WBC 21.3 H (4.8-10.8) X10*3/uL RBC (4.60-5.80) X10*6/uL Hgb (14.0-18.0) g/dl Hct (42.0-52.0) % MCHC 36.5 H (31.0-36.0) g/dl Plt Count 411 H D (160-400) X10*3/uL MPV (9.4-12.4) fL Immature Gran % (Auto) 1.0 H (0.0-0.4) % Neut % (Auto) 83.4 H (45-73) % Lymph % (Auto) 6.7 L (20-40) % Lymph # (Auto) (1.2-4.9) X10*3/uL Titus # (Auto) 1.8 H (0.1-1.2) X10*3/uL Abs Immat Gran (auto) 0.21 H (0.00-0.03) X10*3/uL Absolute Neuts (auto) 17.7 H (2.0-8.3) x10*3/uL VBG pH (7.32-7.43) VBG HCO3 (22-26) mmol/L Sodium 119 L* (135-145) mmol/L Potassium (3.3-5.1) mmol/L Chloride 77 L D (96-108) mmol/L Carbon Dioxide < 5 L* D (22-29) mmol/L Anion Gap (12-20) BUN 57 H (9-16) mg/dL Creatinine 2.44 H (0.5-1.4) mg/dL POC Glucose > 600 H* > 600 H* (60-115) mg/dL Random Glucose 746 H* (60-115) mg/dL Calcium (8.4-10.2) mg/dL Phosphorus (2.7-4.5) mg/dL Magnesium 2.9 H (1.6-2.6) mg/dL Total Bilirubin 1.2 H (0.0-1.0) mg/dL Alkaline Phosphatase 151 H (39-117) U/L Total Protein 9.1 H (6.5-8.0) g/dL Lipase 5 L (8-78) U/L Beta-Hydroxybutyrate 15.28 H (0.02-0.27) mmol/L Urine Protein (Neg-Trace) mg/dL Urine Glucose (UA) (Negative) mg/dL Urine Blood (Negative) 11/30/24 11/30/24 11/30/24 Range/Units 17:16 18:18 18:33 WBC (4.8-10.8) X10*3/uL RBC (4.60-5.80) X10*6/uL Hgb (14.0-18.0) g/dl Hct (42.0-52.0) % MCHC (31.0-36.0) g/dl Plt Count (160-400) X10*3/uL MPV (9.4-12.4) fL Immature Gran % (Auto) (0.0-0.4) % Neut % (Auto) (45-73) % Lymph % (Auto) (20-40) % Lymph # (Auto) (1.2-4.9) X10*3/uL Titus # (Auto) (0.1-1.2) X10*3/uL Abs Immat Gran (auto) (0.00-0.03) X10*3/uL Absolute Neuts (auto) (2.0-8.3) x10*3/uL VBG pH 7.05 L* (7.32-7.43) VBG HCO3 5 L (22-26) mmol/L Sodium (135-145) mmol/L Potassium (3.3-5.1) mmol/L Chloride (96-108) mmol/L Carbon Dioxide (22-29) mmol/L Anion Gap (12-20) BUN (9-16) mg/dL Creatinine (0.5-1.4) mg/dL POC Glucose 369 H* (60-115) mg/dL Random Glucose (60-115) mg/dL Calcium (8.4-10.2) mg/dL Phosphorus (2.7-4.5) mg/dL Magnesium (1.6-2.6) mg/dL Total Bilirubin (0.0-1.0) mg/dL Alkaline Phosphatase (39-117) U/L Total Protein (6.5-8.0) g/dL Lipase (8-78) U/L Beta-Hydroxybutyrate (0.02-0.27) mmol/L Urine Protein 30 (1+) H (Neg-Trace) mg/dL Urine Glucose (UA) >=1000 H (Negative) mg/dL Urine Blood Large (3+) H (Negative) 11/30/24 11/30/24 11/30/24 Range/Units 19:26 19:28 19:43 WBC (4.8-10.8) X10*3/uL RBC (4.60-5.80) X10*6/uL Hgb (14.0-18.0) g/dl Hct (42.0-52.0) % MCHC (31.0-36.0) g/dl Plt Count (160-400) X10*3/uL MPV (9.4-12.4) fL Immature Gran % (Auto) (0.0-0.4) % Neut % (Auto) (45-73) % Lymph % (Auto) (20-40) % Lymph # (Auto) (1.2-4.9) X10*3/uL Titus # (Auto) (0.1-1.2) X10*3/uL Abs Immat Gran (auto) (0.00-0.03) X10*3/uL Absolute Neuts (auto) (2.0-8.3) x10*3/uL VBG pH 7.10 L* (7.32-7.43) VBG HCO3 5 L (22-26) mmol/L Sodium 129 L (135-145) mmol/L Potassium (3.3-5.1) mmol/L Chloride (96-108) mmol/L Carbon Dioxide 6 L* D (22-29) mmol/L Anion Gap 29 H (12-20) BUN 51 H (9-16) mg/dL Creatinine 1.53 H (0.5-1.4) mg/dL POC Glucose 254 H (60-115) mg/dL Random Glucose 287 H (60-115) mg/dL Calcium 7.2 L D (8.4-10.2) mg/dL Phosphorus (2.7-4.5) mg/dL Magnesium (1.6-2.6) mg/dL Total Bilirubin (0.0-1.0) mg/dL Alkaline Phosphatase (39-117) U/L Total Protein (6.5-8.0) g/dL Lipase (8-78) U/L Beta-Hydroxybutyrate (0.02-0.27) mmol/L Urine Protein (Neg-Trace) mg/dL Urine Glucose (UA) (Negative) mg/dL Urine Blood (Negative) 11/30/24 11/30/24 11/30/24 Range/Units 21:06 21:59 23:06 WBC (4.8-10.8) X10*3/uL RBC (4.60-5.80) X10*6/uL Hgb (14.0-18.0) g/dl Hct (42.0-52.0) % MCHC (31.0-36.0) g/dl Plt Count (160-400) X10*3/uL MPV (9.4-12.4) fL Immature Gran % (Auto) (0.0-0.4) % Neut % (Auto) (45-73) % Lymph % (Auto) (20-40) % Lymph # (Auto) (1.2-4.9) X10*3/uL Titus # (Auto) (0.1-1.2) X10*3/uL Abs Immat Gran (auto) (0.00-0.03) X10*3/uL Absolute Neuts (auto) (2.0-8.3) x10*3/uL VBG pH (7.32-7.43) VBG HCO3 (22-26) mmol/L Sodium (135-145) mmol/L Potassium (3.3-5.1) mmol/L Chloride (96-108) mmol/L Carbon Dioxide (22-29) mmol/L Anion Gap (12-20) BUN (9-16) mg/dL Creatinine (0.5-1.4) mg/dL POC Glucose 223 H 236 H 197 H (60-115) mg/dL Random Glucose (60-115) mg/dL Calcium (8.4-10.2) mg/dL Phosphorus (2.7-4.5) mg/dL Magnesium (1.6-2.6) mg/dL Total Bilirubin (0.0-1.0) mg/dL Alkaline Phosphatase (39-117) U/L Total Protein (6.5-8.0) g/dL Lipase (8-78) U/L Beta-Hydroxybutyrate (0.02-0.27) mmol/L Urine Protein (Neg-Trace) mg/dL Urine Glucose (UA) (Negative) mg/dL Urine Blood (Negative) 12/01/24 12/01/24 12/01/24 Range/Units 00:13 00:25 00:35 WBC (4.8-10.8) X10*3/uL RBC (4.60-5.80) X10*6/uL Hgb (14.0-18.0) g/dl Hct (42.0-52.0) % MCHC (31.0-36.0) g/dl Plt Count (160-400) X10*3/uL MPV (9.4-12.4) fL Immature Gran % (Auto) (0.0-0.4) % Neut % (Auto) (45-73) % Lymph % (Auto) (20-40) % Lymph # (Auto) (1.2-4.9) X10*3/uL Titus # (Auto) (0.1-1.2) X10*3/uL Abs Immat Gran (auto) (0.00-0.03) X10*3/uL Absolute Neuts (auto) (2.0-8.3) x10*3/uL VBG pH (7.32-7.43) VBG HCO3 11 L (22-26) mmol/L Sodium 132 L (135-145) mmol/L Potassium (3.3-5.1) mmol/L Chloride (96-108) mmol/L Carbon Dioxide 10 L* D (22-29) mmol/L Anion Gap 23 H (12-20) BUN 37 H (9-16) mg/dL Creatinine 1.41 H (0.5-1.4) mg/dL POC Glucose 220 H (60-115) mg/dL Random Glucose 206 H (60-115) mg/dL Calcium (8.4-10.2) mg/dL Phosphorus (2.7-4.5) mg/dL Magnesium (1.6-2.6) mg/dL Total Bilirubin (0.0-1.0) mg/dL Alkaline Phosphatase (39-117) U/L Total Protein (6.5-8.0) g/dL Lipase (8-78) U/L Beta-Hydroxybutyrate (0.02-0.27) mmol/L Urine Protein (Neg-Trace) mg/dL Urine Glucose (UA) (Negative) mg/dL Urine Blood (Negative) 12/01/24 12/01/24 12/01/24 Range/Units 00:58 01:56 03:14 WBC (4.8-10.8) X10*3/uL RBC (4.60-5.80) X10*6/uL Hgb (14.0-18.0) g/dl Hct (42.0-52.0) % MCHC (31.0-36.0) g/dl Plt Count (160-400) X10*3/uL MPV (9.4-12.4) fL Immature Gran % (Auto) (0.0-0.4) % Neut % (Auto) (45-73) % Lymph % (Auto) (20-40) % Lymph # (Auto) (1.2-4.9) X10*3/uL Titus # (Auto) (0.1-1.2) X10*3/uL Abs Immat Gran (auto) (0.00-0.03) X10*3/uL Absolute Neuts (auto) (2.0-8.3) x10*3/uL VBG pH (7.32-7.43) VBG HCO3 (22-26) mmol/L Sodium (135-145) mmol/L Potassium (3.3-5.1) mmol/L Chloride (96-108) mmol/L Carbon Dioxide (22-29) mmol/L Anion Gap (12-20) BUN (9-16) mg/dL Creatinine (0.5-1.4) mg/dL POC Glucose 200 H 185 H 174 H (60-115) mg/dL Random Glucose (60-115) mg/dL Calcium (8.4-10.2) mg/dL Phosphorus (2.7-4.5) mg/dL Magnesium (1.6-2.6) mg/dL Total Bilirubin (0.0-1.0) mg/dL Alkaline Phosphatase (39-117) U/L Total Protein (6.5-8.0) g/dL Lipase (8-78) U/L Beta-Hydroxybutyrate (0.02-0.27) mmol/L Urine Protein (Neg-Trace) mg/dL Urine Glucose (UA) (Negative) mg/dL Urine Blood (Negative) 12/01/24 12/01/24 12/01/24 Range/Units 04:02 04:26 04:31 WBC 13.9 H (4.8-10.8) X10*3/uL RBC 4.30 L (4.60-5.80) X10*6/uL Hgb 11.9 L D (14.0-18.0) g/dl Hct 35.5 L D (42.0-52.0) % MCHC (31.0-36.0) g/dl Plt Count (160-400) X10*3/uL MPV 8.7 L (9.4-12.4) fL Immature Gran % (Auto) 0.5 H (0.0-0.4) % Neut % (Auto) 85.3 H (45-73) % Lymph % (Auto) 7.3 L (20-40) % Lymph # (Auto) 1.0 L (1.2-4.9) X10*3/uL Titus # (Auto) (0.1-1.2) X10*3/uL Abs Immat Gran (auto) 0.07 H (0.00-0.03) X10*3/uL Absolute Neuts (auto) 11.8 H (2.0-8.3) x10*3/uL VBG pH 7.49 H (7.32-7.43) VBG HCO3 17 L (22-26) mmol/L Sodium 134 L (135-145) mmol/L Potassium 3.0 L (3.3-5.1) mmol/L Chloride (96-108) mmol/L Carbon Dioxide 19 L (22-29) mmol/L Anion Gap (12-20) BUN 30 H (9-16) mg/dL Creatinine (0.5-1.4) mg/dL POC Glucose 167 H (60-115) mg/dL Random Glucose 153 H (60-115) mg/dL Calcium (8.4-10.2) mg/dL Phosphorus 2.2 L (2.7-4.5) mg/dL Magnesium (1.6-2.6) mg/dL Total Bilirubin (0.0-1.0) mg/dL Alkaline Phosphatase (39-117) U/L Total Protein 6.2 L (6.5-8.0) g/dL Lipase (8-78) U/L Beta-Hydroxybutyrate (0.02-0.27) mmol/L Urine Protein (Neg-Trace) mg/dL Urine Glucose (UA) (Negative) mg/dL Urine Blood (Negative) 12/01/24 Range/Units 05:02 WBC (4.8-10.8) X10*3/uL RBC (4.60-5.80) X10*6/uL Hgb (14.0-18.0) g/dl Hct (42.0-52.0) % MCHC (31.0-36.0) g/dl Plt Count (160-400) X10*3/uL MPV (9.4-12.4) fL Immature Gran % (Auto) (0.0-0.4) % Neut % (Auto) (45-73) % Lymph % (Auto) (20-40) % Lymph # (Auto) (1.2-4.9) X10*3/uL Titus # (Auto) (0.1-1.2) X10*3/uL Abs Immat Gran (auto) (0.00-0.03) X10*3/uL Absolute Neuts (auto) (2.0-8.3) x10*3/uL VBG pH (7.32-7.43) VBG HCO3 (22-26) mmol/L Sodium (135-145) mmol/L Potassium (3.3-5.1) mmol/L Chloride (96-108) mmol/L Carbon Dioxide (22-29) mmol/L Anion Gap (12-20) BUN (9-16) mg/dL Creatinine (0.5-1.4) mg/dL POC Glucose 142 H (60-115) mg/dL Random Glucose (60-115) mg/dL Calcium (8.4-10.2) mg/dL Phosphorus (2.7-4.5) mg/dL Magnesium (1.6-2.6) mg/dL Total Bilirubin (0.0-1.0) mg/dL Alkaline Phosphatase (39-117) U/L Total Protein (6.5-8.0) g/dL Lipase (8-78) U/L Beta-Hydroxybutyrate (0.02-0.27) mmol/L Urine Protein (Neg-Trace) mg/dL Urine Glucose (UA) (Negative) mg/dL Urine Blood (Negative) H & H 11/30/24 12/01/24 Range/Units 17:12 04:31 Hgb 16.7 11.9 L D (14.0-18.0) g/dl Hct 45.8 35.5 L D (42.0-52.0) % All other labs normal. Diagnostic results Wrist/Hand x-ray: report reviewed and image reviewed Wrist/Hand CT: report reviewed and image reviewed Assessment and Plan (1) Fracture of right distal radius: Status: Acute Plan 1. Minimally displaced right distal radius fracture Date of injury approximately 1 week ago Patient is educated about this injury Patient is educated about the typical treatment course At this time, due to the largely nondisplaced nature of the fracture, the patient is informed that he will require no operative intervention at this time Patient will be placed into a volar wrist splint to be worn at all times until follow-up Keep splint clean, dry, intact After splint placement later today, no further acute orthopedic intervention is indicated Patient should follow-up outpatient upon discharge from the hospital for further evaluation and treatment Procedures Date of Service Date of Service: 12/01/24
--- NOTE | 2024-12-01 08:41 | PM.CCPN ---
Subjective Subjective Date of Service: 12/01/24 Interval History: 44-year-old gentleman with underlying type 1 diabetes mellitus cerebral palsy, gastroparesis, bronchodilators admitted on 11/30/2024 with 3 day history of nausea and vomiting not using his insulin for the same amount of time and also has a mechanical fall. On ER evaluation patient in diabetic ketoacidosis started on insulin drip and admitted to intensive care unit. On further workup patient with with distal radius fracture, now status post splinting. No events overnight. Titrated off insulin drip. Critical Care Time (minutes): 0 Physical Exam Vital Signs: Vital Signs: Last Vital Signs Temp 98.5 F 12/01/24 08:00 Pulse 96 12/01/24 08:00 Resp 18 12/01/24 08:00 BP 142/73 H 12/01/24 08:00 Pulse Ox 97 12/01/24 08:00 O2 Del Method Room Air 12/01/24 08:00 BMI result Body Mass Index 18.1 Const: General: no acute distress, alert and awake Eyes: Sclerae: sclerae normal EOM: EOMs intact bilaterally Neck: Neck: Yes no lymphadenopathy, Yes trachea midline and Yes supple Resp: Effort & Inspection: normal respiratory effort and no respiratory distress Auscultation: clear to auscultation bilaterally Cardio: Rate: regular rate Rhythm: regular rhythm Heart sounds: no gallops, no murmurs and no rubs GI: Palpation (GI): Soft to palpation and Other GI palpation findings present ( Nontender) Auscultation: normal bowel sounds Extrem: General: Yes no pedal edema, No clubbing and No cyanosis Objective Data Labs 12/01/24 04:31 12/01/24 04:31 Labs: Laboratory Results - last 24 hr 11/30/24 11/30/24 11/30/24 17:08 17:12 17:15 WBC 21.3 H RBC 5.33 D Hgb 16.7 Hct 45.8 MCV 85.9 MCH 31.3 MCHC 36.5 H RDW 11.8 Plt Count 411 H D MPV 9.6 Immature Gran % (Auto) 1.0 H Neut % (Auto) 83.4 H Lymph % (Auto) 6.7 L [place] % (Auto) 8.7 Eos % (Auto) 0.0 Baso % (Auto) 0.2 Lymph # (Auto) 1.4 [place] # (Auto) 1.8 H Eos # (Auto) 0.0 Baso # (Auto) 0.1 Abs Immat Gran (auto) 0.21 H Absolute Neuts (auto) 17.7 H Absolute Nucleated RBC 0.000 Nucleated RBC % (auto) 0.0 Smear Tech's Comments VERIFIED VBG pH VBG pCO2 VBG pO2 VBG HCO3 VBG O2 Saturation VBG Base Excess Sodium 119 L* Potassium 4.4 Chloride 77 L D Carbon Dioxide < 5 L* D Anion Gap TNP BUN 57 H Creatinine 2.44 H Estim Creat Clear Calc 29.1 Estimated GFR 29 POC Glucose > 600 H* > 600 H* Random Glucose 746 H* Lactic Acid Calcium 9.2 Phosphorus Magnesium 2.9 H Total Bilirubin 1.2 H AST 26 ALT 16 Alkaline Phosphatase 151 H Total Protein 9.1 H Albumin 5.0 Lipase 5 L Beta-Hydroxybutyrate 15.28 H Urine Color Urine Appearance Urine pH Ur Specific [place] Urine Protein Urine Glucose (UA) Urine Ketones Urine Blood Urine Nitrite Ur Leukocyte Esterase Urine RBC Urine WBC Ur Squamous Epith Cells Urine Bacteria Hyaline Casts Influenza Type A (PCR) Influenza Type B (PCR) RSV RNA Qual (PCR) SARS-CoV-2 RNA (RT-PCR) 11/30/24 11/30/24 11/30/24 17:16 17:40 18:18 WBC RBC Hgb Hct MCV MCH MCHC RDW Plt Count MPV Immature Gran % (Auto) Neut % (Auto) Lymph % (Auto) [place] % (Auto) Eos % (Auto) Baso % (Auto) Lymph # (Auto) [place] # (Auto) Eos # (Auto) Baso # (Auto) Abs Immat Gran (auto) Absolute Neuts (auto) Absolute Nucleated RBC Nucleated RBC % (auto) Smear Tech's Comments VBG pH 7.05 L* VBG pCO2 16 VBG pO2 48 VBG HCO3 5 L VBG O2 Saturation 68.0 VBG Base Excess -23.2 Sodium Potassium Chloride Carbon Dioxide Anion Gap BUN Creatinine Estim Creat Clear Calc Estimated GFR POC Glucose Random Glucose Lactic Acid 1.8 Calcium Phosphorus Magnesium Total Bilirubin AST ALT Alkaline Phosphatase Total Protein Albumin Lipase Beta-Hydroxybutyrate Urine Color Yellow Urine Appearance Clear Urine pH 5.0 Ur Specific [place] 1.020 Urine Protein 30 (1+) H Urine Glucose (UA) >=1000 H Urine Ketones >=160 Urine Blood Large (3+) H Urine Nitrite Negative Ur Leukocyte Esterase Negative Urine RBC 0-2 Urine WBC 0-5 Ur Squamous Epith Cells 0-2 Urine Bacteria None Seen Hyaline Casts 6-10 Influenza Type A (PCR) NEGATIVE Influenza Type B (PCR) NEGATIVE RSV RNA Qual (PCR) NEGATIVE SARS-CoV-2 RNA (RT-PCR) NEGATIVE 11/30/24 11/30/24 11/30/24 18:33 19:26 19:28 WBC RBC Hgb Hct MCV MCH MCHC RDW Plt Count MPV Immature Gran % (Auto) Neut % (Auto) Lymph % (Auto) [place] % (Auto) Eos % (Auto) Baso % (Auto) Lymph # (Auto) [place] # (Auto) Eos # (Auto) Baso # (Auto) Abs Immat Gran (auto) Absolute Neuts (auto) Absolute Nucleated RBC Nucleated RBC % (auto) Smear Tech's Comments VBG pH 7.10 L* VBG pCO2 16 VBG pO2 95 VBG HCO3 5 L VBG O2 Saturation 96.0 VBG Base Excess -21.8 Sodium 129 L Potassium 3.5 D Chloride 98 D Carbon Dioxide 6 L* D Anion Gap 29 H BUN 51 H Creatinine 1.53 H Estim Creat Clear Calc 46.4 Estimated GFR 49 POC Glucose 369 H* Random Glucose 287 H Lactic Acid Calcium 7.2 L D Phosphorus Magnesium Total Bilirubin AST ALT Alkaline Phosphatase Total Protein Albumin Lipase Beta-Hydroxybutyrate Urine Color Urine Appearance Urine pH Ur Specific [place] Urine Protein Urine Glucose (UA) Urine Ketones Urine Blood Urine Nitrite Ur Leukocyte Esterase Urine RBC Urine WBC Ur Squamous Epith Cells Urine Bacteria Hyaline Casts Influenza Type A (PCR) Influenza Type B (PCR) RSV RNA Qual (PCR) SARS-CoV-2 RNA (RT-PCR) 11/30/24 11/30/24 11/30/24 19:43 21:06 21:59 WBC RBC Hgb Hct MCV MCH MCHC RDW Plt Count MPV Immature Gran % (Auto) Neut % (Auto) Lymph % (Auto) [place] % (Auto) Eos % (Auto) Baso % (Auto) Lymph # (Auto) [place] # (Auto) Eos # (Auto) Baso # (Auto) Abs Immat Gran (auto) Absolute Neuts (auto) Absolute Nucleated RBC Nucleated RBC % (auto) Smear Tech's Comments VBG pH VBG pCO2 VBG pO2 VBG HCO3 VBG O2 Saturation VBG Base Excess Sodium Potassium Chloride Carbon Dioxide Anion Gap BUN Creatinine Estim Creat Clear Calc Estimated GFR POC Glucose 254 H 223 H 236 H Random Glucose Lactic Acid Calcium Phosphorus Magnesium Total Bilirubin AST ALT Alkaline Phosphatase Total Protein Albumin Lipase Beta-Hydroxybutyrate Urine Color Urine Appearance Urine pH Ur Specific [place] Urine Protein Urine Glucose (UA) Urine Ketones Urine Blood Urine Nitrite Ur Leukocyte Esterase Urine RBC Urine WBC Ur Squamous Epith Cells Urine Bacteria Hyaline Casts Influenza Type A (PCR) Influenza Type B (PCR) RSV RNA Qual (PCR) SARS-CoV-2 RNA (RT-PCR) 11/30/24 12/01/24 12/01/24 23:06 00:13 00:25 WBC RBC Hgb Hct MCV MCH MCHC RDW Plt Count MPV Immature Gran % (Auto) Neut % (Auto) Lymph % (Auto) [place] % (Auto) Eos % (Auto) Baso % (Auto) Lymph # (Auto) [place] # (Auto) Eos # (Auto) Baso # (Auto) Abs Immat Gran (auto) Absolute Neuts (auto) Absolute Nucleated RBC Nucleated RBC % (auto) Smear Tech's Comments VBG pH VBG pCO2 VBG pO2 VBG HCO3 VBG O2 Saturation VBG Base Excess Sodium 132 L Potassium 3.7 Chloride 103 Carbon Dioxide 10 L* D Anion Gap 23 H BUN 37 H Creatinine 1.41 H Estim Creat Clear Calc 44.2 Estimated GFR 54 POC Glucose 197 H 220 H Random Glucose 206 H Lactic Acid Calcium 8.4 D Phosphorus Magnesium Total Bilirubin 0.9 AST 27 ALT 15 Alkaline Phosphatase 95 Total Protein 6.8 Albumin 3.7 Lipase Beta-Hydroxybutyrate Urine Color Urine Appearance Urine pH Ur Specific [place] Urine Protein Urine Glucose (UA) Urine Ketones Urine Blood Urine Nitrite Ur Leukocyte Esterase Urine RBC Urine WBC Ur Squamous Epith Cells Urine Bacteria Hyaline Casts Influenza Type A (PCR) Influenza Type B (PCR) RSV RNA Qual (PCR) SARS-CoV-2 RNA (RT-PCR) 12/01/24 12/01/24 12/01/24 00:35 00:58 01:56 WBC RBC Hgb Hct MCV MCH MCHC RDW Plt Count MPV Immature Gran % (Auto) Neut % (Auto) Lymph % (Auto) [place] % (Auto) Eos % (Auto) Baso % (Auto) Lymph # (Auto) [place] # (Auto) Eos # (Auto) Baso # (Auto) Abs Immat Gran (auto) Absolute Neuts (auto) Absolute Nucleated RBC Nucleated RBC % (auto) Smear Tech's Comments VBG pH 7.34 VBG pCO2 20 VBG pO2 71 VBG HCO3 11 L VBG O2 Saturation 97.0 VBG Base Excess -12.1 Sodium Potassium Chloride Carbon Dioxide Anion Gap BUN Creatinine Estim Creat Clear Calc Estimated GFR POC Glucose 200 H 185 H Random Glucose Lactic Acid Calcium Phosphorus Magnesium Total Bilirubin AST ALT Alkaline Phosphatase Total Protein Albumin Lipase Beta-Hydroxybutyrate Urine Color Urine Appearance Urine pH Ur Specific [place] Urine Protein Urine Glucose (UA) Urine Ketones Urine Blood Urine Nitrite Ur Leukocyte Esterase Urine RBC Urine WBC Ur Squamous Epith Cells Urine Bacteria Hyaline Casts Influenza Type A (PCR) Influenza Type B (PCR) RSV RNA Qual (PCR) SARS-CoV-2 RNA (RT-PCR) 12/01/24 12/01/24 12/01/24 03:14 04:02 04:26 WBC RBC Hgb Hct MCV MCH MCHC RDW Plt Count MPV Immature Gran % (Auto) Neut % (Auto) Lymph % (Auto) [place] % (Auto) Eos % (Auto) Baso % (Auto) Lymph # (Auto) [place] # (Auto) Eos # (Auto) Baso # (Auto) Abs Immat Gran (auto) Absolute Neuts (auto) Absolute Nucleated RBC Nucleated RBC % (auto) Smear Tech's Comments VBG pH 7.49 H VBG pCO2 22 VBG pO2 50 VBG HCO3 17 L VBG O2 Saturation 87.0 VBG Base Excess -3.4 Sodium Potassium Chloride Carbon Dioxide Anion Gap BUN Creatinine Estim Creat Clear Calc Estimated GFR POC Glucose 174 H 167 H Random Glucose Lactic Acid Calcium Phosphorus Magnesium Total Bilirubin AST ALT Alkaline Phosphatase Total Protein Albumin Lipase Beta-Hydroxybutyrate Urine Color Urine Appearance Urine pH Ur Specific [place] Urine Protein Urine Glucose (UA) Urine Ketones Urine Blood Urine Nitrite Ur Leukocyte Esterase Urine RBC Urine WBC Ur Squamous Epith Cells Urine Bacteria Hyaline Casts Influenza Type A (PCR) Influenza Type B (PCR) RSV RNA Qual (PCR) SARS-CoV-2 RNA (RT-PCR) 12/01/24 12/01/24 12/01/24 04:31 05:02 06:10 WBC 13.9 H RBC 4.30 L Hgb 11.9 L D Hct 35.5 L D MCV 82.6 MCH 27.7 MCHC 33.5 RDW 11.8 Plt Count 257 D MPV 8.7 L Immature Gran % (Auto) 0.5 H Neut % (Auto) 85.3 H Lymph % (Auto) 7.3 L [place] % (Auto) 6.8 Eos % (Auto) 0.0 Baso % (Auto) 0.1 Lymph # (Auto) 1.0 L [place] # (Auto) 0.9 Eos # (Auto) 0.0 Baso # (Auto) 0.0 Abs Immat Gran (auto) 0.07 H Absolute Neuts (auto) 11.8 H Absolute Nucleated RBC 0.000 Nucleated RBC % (auto) 0.0 Smear Tech's Comments VBG pH VBG pCO2 VBG pO2 VBG HCO3 VBG O2 Saturation VBG Base Excess Sodium 134 L Potassium 3.0 L Chloride 106 Carbon Dioxide 19 L Anion Gap 12 BUN 30 H Creatinine 1.16 Estim Creat Clear Calc 53.7 Estimated GFR > 60 POC Glucose 142 H 105 Random Glucose 153 H Lactic Acid Calcium 8.6 Phosphorus 2.2 L Magnesium 2.0 Total Bilirubin 1.0 AST 26 ALT 15 Alkaline Phosphatase 86 Total Protein 6.2 L Albumin 3.5 Lipase Beta-Hydroxybutyrate Urine Color Urine Appearance Urine pH Ur Specific [place] Urine Protein Urine Glucose (UA) Urine Ketones Urine Blood Urine Nitrite Ur Leukocyte Esterase Urine RBC Urine WBC Ur Squamous Epith Cells Urine Bacteria Hyaline Casts Influenza Type A (PCR) Influenza Type B (PCR) RSV RNA Qual (PCR) SARS-CoV-2 RNA (RT-PCR) 12/01/24 12/01/24 07:15 07:55 WBC RBC Hgb Hct MCV MCH MCHC RDW Plt Count MPV Immature Gran % (Auto) Neut % (Auto) Lymph % (Auto) [place] % (Auto) Eos % (Auto) Baso % (Auto) Lymph # (Auto) [place] # (Auto) Eos # (Auto) Baso # (Auto) Abs Immat Gran (auto) Absolute Neuts (auto) Absolute Nucleated RBC Nucleated RBC % (auto) Smear Tech's Comments VBG pH VBG pCO2 VBG pO2 VBG HCO3 VBG O2 Saturation VBG Base Excess Sodium Potassium Chloride Carbon Dioxide Anion Gap BUN Creatinine Estim Creat Clear Calc Estimated GFR POC Glucose 98 85 Random Glucose Lactic Acid Calcium Phosphorus Magnesium Total Bilirubin AST ALT Alkaline Phosphatase Total Protein Albumin Lipase Beta-Hydroxybutyrate Urine Color Urine Appearance Urine pH Ur Specific [place] Urine Protein Urine Glucose (UA) Urine Ketones Urine Blood Urine Nitrite Ur Leukocyte Esterase Urine RBC Urine WBC Ur Squamous Epith Cells Urine Bacteria Hyaline Casts Influenza Type A (PCR) Influenza Type B (PCR) RSV RNA Qual (PCR) SARS-CoV-2 RNA (RT-PCR) Progress Note: A&P Assessment and plan (1) Diabetic keto-acidosis: Status: Acute (2) Fracture of right distal radius: Status: Acute (3) Cerebral palsy: Status: Acute Plan Assessment: 44-year-old gentleman with type 1 diabetes mellitus admitted with diabetic ketoacidosis Plan: Neuro: No acute issues. Cardiac: No acute issues. Pulmonary: No acute issues. Renal: Acute kidney injury secondary to diabetic ketoacidosis, nonoliguric, improving. Continue to monitor renal indices and urine output. Endo: Diabetic ketoacidosis, resolved. Titrated off insulin drip. Continue subcu insulin protocol. GI: No acute issues. ID: No acute issues Heme/Onc: No acute issues. Psych: No acute issues. Miscellaneous: Right distal radial fracture, now status post splinting. Prophylaxis: Heparin Diet: Diabetic Quality Stroke Does the patient have a stroke diagnosis?: No VTE Prior VTE?: No VTE Risk Level:: Medical - moderate - high VTE Device Contraindication: N/A - Device Ordered VTE Drug Contraindication: N/A - Med Ordered
[2024-12-01] MEDS: Ketorolac Tromethamine 15 MG/ML VIAL IVPUSH (09:36)
[2024-12-01 11:23] LABS: Glucose, Whole Blood 160 mg/dL (60-115)
[2024-12-01] MEDS: Morphine Sulfate 2 MG/ML CARTRIDGE IVPUSH ×3 (11:46→21:07)
[2024-12-01] MEDS: Insulin Lispro 100 UNIT/ML 3 ML VIAL SUBCUT ×2 (11:47→16:52)
[2024-12-01 13:03] LABS: Blood Urea Nitrogen 22 mg/dL (9-16); Calcium 8.4 mg/dL (8.4-10.2); Creatinine Clr Calc Pharmacy 70.8; Estimated Glomerular Filt Rate > 60; Glucose Random 165 mg/dL (60-115)
[2024-12-01 13:10] LABS: Anion Gap 14 (12-20); Carbon Dioxide 18 mmol/L (22-29); Chloride 107 mmol/L (96-108); Potassium 3.9 mmol/L (3.3-5.1); Sodium 135 mmol/L (135-145)
--- NOTE | 2024-12-01 14:43 | MHC.CM.PN ---
Pt admitted to ICU w/DKA and fx arm: pt very somulent and having difficulty staying awake during attempts to converse. Call placed to pt's mother who states pt resides alone but has daily [employer] services and a PT-1 for transportation. He uses crutches for ambulation and has a working glucometer and DM supplies. She states [facility] provides a monthly RN visit and weekly visits w/a MH clinician. Pt may need transporation to home if [employer] is unable to do so. Unsure if pt will be able to manage crutches with arm fx: would recommend PT or OT eval. No HCP on file
--- NOTE | 2024-12-01 14:49 | PM.EVENT ---
Event Note Date of Service: 12/02/24 Event Note: This patient is seen and examined . Physical exam and assessment and plan coordinated in icunote, Agree with the plan in addition: dka -anion gap closed pain upper ext/fx -continuepain meds. Time Spent With Patient Time: Total time managing care of this patient today ____ minutes.
[2024-12-01 14:55] LABS: Glucose, Whole Blood 158 mg/dL (60-115)
--- NOTE | 2024-12-01 15:38 | PC.NURSE ---
Assumed care of patient 0700 Pt transitioned off of insulin gtt to Lantus 10 units and SSI Pt diet advanced to diabetic diet. Poor PO intake. Pt states nausea, 1 episode of clear vomiting. prn Zofran given. prn morphine 2mg IVP given for right wrist pain and headache pain 04/19. Ortho consult to see pt. Fiberglass splint and caryn wrap applied. Per ortho keep splint in place until f/u outpatient appointment. Wrap with bag for showering. Full bed bath provided to patient Pt has 2 healing pressure injuries to b/l bony prominences of buttocks. Pt states this is from his shower chair at home. Pt given prn zofran again at 15:07 for nausea. Pt transferred to Med surg at 15:40pm.RN to RN report given. Pt tarun transferred with pt including cell phone and plaster foreman.
[2024-12-01 15:58] LABS: Glucose, Whole Blood 157 mg/dL (60-115)
[2024-12-01 20:47] LABS: Glucose, Whole Blood 117 mg/dL (60-115)
[2024-12-02] MEDS: ondansetron HCL 4 MG/2 ML VIAL IVPUSH ×2 (00:45→08:54)
[2024-12-02] MEDS: Morphine Sulfate 2 MG/ML CARTRIDGE IVPUSH ×2 (00:59→05:26)
[2024-12-02 03:36] VITALS: BP 149/85; PULSE 75; RESP 16; TEMP 36.8; O2SAT 99
[2024-12-02] MEDS: Omeprazole 40 MG CAPSULE.DR PO ×2 (05:26→16:58)
[2024-12-02 07:16] VITALS: BP 154/85; PULSE 88; RESP 18; TEMP 36.8; O2SAT 99
[2024-12-02 07:53] LABS: Glucose, Whole Blood 119 mg/dL (60-115)
[2024-12-02 07:53] LABS: MANUAL DIFF FLAG NO
[2024-12-02 07:58] LABS: Eosinophils Percent Auto 0.1 % (0-4); Hematocrit 37.3 % (42.0-52.0); Hemoglobin 13.6 g/dl (14.0-18.0); Imm Gran Abs Auto 0.02 X10*3/uL (0.00-0.03); Imm Gran Pct Auto 0.3 % (0.0-0.4); Lymphocytes Absolute Auto 1.2 X10*3/uL (1.2-4.9); Lymphocytes Percent Auto 17.4 % (20-40); Mean Corpuscular HGB Conc 36.5 g/dl (31.0-36.0); Mean Corpuscular Hemoglobin 31.1 pg (27.0-33.0); Mean Corpuscular Volume 85.2 fL (80.0-98.0); Mean Platelet Volume 9.2 fL (9.4-12.4); Monocytes Absolute Auto 0.6 X10*3/uL (0.1-1.2); Monocytes Percent Auto 7.7 % (2-11); Neutrophils Absolute Auto 5.3 x10*3/uL (2.0-8.3); Neutrophils Percent Auto 74.5 % (45-73); Platelet Count 209 X10*3/uL (160-400); Red Blood Count 4.38 X10*6/uL (4.60-5.80); Red Cell Distribution Width 11.9 % (11.0-16.0); White Blood Count 7.1 X10*3/uL (4.8-10.8)
[2024-12-02 08:14] LABS: Albumin Level 3.4 g/dL (3.5-5.0); Anion Gap 13 (12-20); Blood Urea Nitrogen 18 mg/dL (9-16); Calcium 8.5 mg/dL (8.4-10.2); Carbon Dioxide 23 mmol/L (22-29); Chloride 103 mmol/L (96-108); Creatinine Clr Calc Pharmacy 90.3; Estimated Glomerular Filt Rate > 60; Glucose Random 134 mg/dL (60-115); Phosphorus 1.6 mg/dL (2.7-4.5); Potassium 3.3 mmol/L (3.3-5.1); Sodium 136 mmol/L (135-145)
[2024-12-02] MEDS: Heparin Sodium,Porcine 5,000 UNIT/ML VIAL 5000 UNIT SUBCUT ×2 (08:54→20:41)
[2024-12-02] MEDS: Cholecalciferol (Vitamin D3) 25 MCG TABLET 50 MCG PO (08:55)
[2024-12-02] MEDS: glipiZIDE 5 MG TABLET PO (08:55)
[2024-12-02] MEDS: Atorvastatin Calcium 20 MG TABLET PO (08:55)
[2024-12-02 09:29] VITALS: BP 154/85; PULSE 88; O2SAT 99
[2024-12-02] MEDS: Insulin Glargine,Hum.rec.anlog 100 UNIT/ML 10 ML VIAL 20 UNIT SUBCUT (09:47)
[2024-12-02] MEDS: Metoclopramide HCl 10 MG/2 ML VIAL 5 MG IVPUSH (09:47)
[2024-12-02] MEDS: oxyCODONE HCl Immed Release 5 MG TABLET 10 MG PO ×3 (09:53→19:24)
[2024-12-02 11:39] LABS: Glucose, Whole Blood 155 mg/dL (60-115)
[2024-12-02] MEDS: Insulin Lispro 100 UNIT/ML 3 ML VIAL SUBCUT (12:03)
[2024-12-02 16:00] VITALS: BP 151/81; PULSE 84; RESP 18; TEMP 37.1; O2SAT 98
[2024-12-02 16:27] LABS: Glucose, Whole Blood 128 mg/dL (60-115)
--- NOTE | 2024-12-02 16:54 | P.PNIM_ITS ---
Subjective Subjective Date of Service: 12/02/24 Interval History: dm Review of Systems has nausea , unableto eat no abd pain Physical Exam 2 Vital Signs: Vital Signs: Last Vital Signs Temp 98.7 F 12/02/24 16:00 Pulse 84 12/02/24 16:00 Resp 18 12/02/24 16:00 BP 151/81 H 12/02/24 16:00 Pulse Ox 98 12/02/24 16:00 O2 Del Method Room Air 12/02/24 16:00 BMI result Body Mass Index 19.1 Appearance: Alert.? Oriented X3.? cvs: rrr, [id number] , no murmur res: clear to auscultation ,no rhonchii or wheezing abd: no rebound or guarding ,nt, bs present. ext pulses present , no cyanosis. neuro: axo3 , has cerebral palsy Objective Data Active Medications Atorvastatin Calcium (Atorvastatin Calcium 20 Mg Tablet) 20 mg PO DAILY [facility] Last Admin: 12/02/24 08:55 Dose: 20 mg Documented By: BHAKTI Glipizide (Glipizide 5 Mg Tablet) 5 mg PO DAILY [facility] Last Admin: 12/02/24 08:55 Dose: 5 mg Documented By: BHAKTI Heparin Sodium (Porcine) (Heparin Sodium,Porcine 5,000 Unit/Ml Vial) 5,000 unit SUBCUT Q12H [facility] Last Admin: 12/02/24 08:54 Dose: 5,000 unit Documented By: BHAKTI Insulin Glargine (Insulin Glargine,Hum.Rec.Anlog 100 Unit/Ml 10 Ml Vial) 20 unit SUBCUT DAILY [facility] Last Admin: 12/02/24 09:47 Dose: 20 unit Documented By: BHAKTI Insulin Human Lispro (Insulin Lispro 100 Unit/Ml 3 Ml Vial) 0 unit SUBCUT QIDACHS [facility]; Protocol Last Admin: 12/02/24 16:30 Dose: Not Given Documented By: BHAKTI Non-Admin Reason: No Insulin Coverage Omeprazole (Omeprazole 40 Mg Capsule.) 40 mg PO BID@0630,1630 [facility] Last Admin: 12/02/24 05:26 Dose: 40 mg Documented By: CLINT Ondansetron HCl (Ondansetron Hcl 4 Mg/2 Ml Vial) 4 mg IVPUSH Q8H PRN PRN Reason: Nausea and Vomiting Last Admin: 12/02/24 08:54 Dose: 4 mg Documented By: BHAKTI Ondansetron HCl (Ondansetron Odt 4 Mg Tab.Rapdis) 4 mg TRANSLINGU Q6H PRN PRN Reason: Nausea and Vomiting Oxycodone HCl (Oxycodone Hcl Immed Release 5 Mg Tablet) 10 mg PO Q4H PRN PRN Reason: Pain, Severe (Pain Scale 7-10) Last Admin: 12/02/24 14:44 Dose: 10 mg Documented By: BHAKTI Vitamin D (Cholecalciferol (Vitamin D3) 25 Mcg Tablet) 50 mcg PO DAILY [facility] Last Admin: 12/02/24 08:55 Dose: 50 mcg Documented By: BHAKTI Labs 12/02/24 07:46 12/02/24 07:46 Labs: Laboratory Results - last 24 hr 12/01/24 12/02/24 12/02/24 20:44 07:22 07:46 MCV 85.2 MCH 31.1 MCHC 36.5 H RDW 11.9 Plt Count 209 MPV 9.2 L Immature Gran % (Auto) 0.3 Neut % (Auto) 74.5 H Lymph % (Auto) 17.4 L [place] % (Auto) 7.7 Eos % (Auto) 0.1 Baso % (Auto) 0.0 Lymph # (Auto) 1.2 [place] # (Auto) 0.6 Eos # (Auto) 0.0 Baso # (Auto) 0.0 Abs Immat Gran (auto) 0.02 Absolute Neuts (auto) 5.3 Absolute Nucleated RBC 0.000 Nucleated RBC % (auto) 0.0 Anion Gap 13 Estim Creat Clear Calc 90.3 Estimated GFR > 60 POC Glucose 117 H 119 H Random Glucose 134 H Calcium 8.5 Phosphorus 1.6 L Magnesium 2.0 Albumin 3.4 L 12/02/24 12/02/24 11:34 16:16 MCV MCH MCHC RDW Plt Count MPV Immature Gran % (Auto) Neut % (Auto) Lymph % (Auto) [place] % (Auto) Eos % (Auto) Baso % (Auto) Lymph # (Auto) [place] # (Auto) Eos # (Auto) Baso # (Auto) Abs Immat Gran (auto) Absolute Neuts (auto) Absolute Nucleated RBC Nucleated RBC % (auto) Anion Gap Estim Creat Clear Calc Estimated GFR POC Glucose 155 H 128 H Random Glucose Calcium Phosphorus Magnesium Albumin Microbiology Microbiology Results: Microbiology 11/30/24 17:42 Blood Culture - Preliminary Blood - Venous No growth after 24 hours. 11/30/24 17:40 Blood Culture - Preliminary Blood - Venous No growth after 24 hours. Assessment and Plan (1) Fracture of right distal radius: Status: Acute (2) Diabetic keto-acidosis: Status: Acute Assessment and Plan: 44 y/o m with dka,hlp ,cp -came with dka. Dka: anion gap resolved with insulin/hydration continue lantus , fs /sliding scale coverage. nausea/unable to eat: added zofran,reglan , ivf hlp: statin dvt prophylax:s/c heparin ongoing need -dm , nausea -unable to tolerate ,need antiemtics , ivf , moniter for po intake. Quality Stroke Does the patient have a stroke diagnosis?: No VTE Prior VTE?: No VTE Risk Level:: Medical - moderate - high VTE Device Contraindication: N/A - Device Ordered VTE Drug Contraindication: N/A - Med Ordered
[2024-12-02] MEDS: Ondansetron ODT 4 MG TAB.RAPDIS TRANSLINGU (19:24)
[2024-12-02 19:57] VITALS: BP 138/74; PULSE 77; RESP 18; TEMP 36.6; O2SAT 98
[2024-12-02 20:10] LABS: Glucose, Whole Blood 103 mg/dL (60-115)
[2024-12-03] MEDS: oxyCODONE HCl Immed Release 5 MG TABLET 10 MG PO ×5 (00:09→19:05)
[2024-12-03] MEDS: Ondansetron ODT 4 MG TAB.RAPDIS TRANSLINGU (01:23)
[2024-12-03] MEDS: Acetaminophen 325 MG TABLET 975 MG PO (02:36)
[2024-12-03 03:47] VITALS: BP 136/77; PULSE 76; RESP 18; TEMP 36.7; O2SAT 98
[2024-12-03] MEDS: Omeprazole 40 MG CAPSULE.DR PO ×2 (05:32→17:03)
[2024-12-03 08:00] VITALS: BP 159/83; PULSE 105; RESP 18; TEMP 36.3; O2SAT 99
[2024-12-03 08:17] LABS: Glucose, Whole Blood 105 mg/dL (60-115)
[2024-12-03] MEDS: Atorvastatin Calcium 20 MG TABLET PO (08:34)
[2024-12-03] MEDS: Insulin Glargine,Hum.rec.anlog 100 UNIT/ML 10 ML VIAL 20 UNIT SUBCUT (08:34)
[2024-12-03] MEDS: glipiZIDE 5 MG TABLET PO (08:34)
[2024-12-03] MEDS: Heparin Sodium,Porcine 5,000 UNIT/ML VIAL 5000 UNIT SUBCUT ×2 (08:34→21:15)
[2024-12-03] MEDS: Cholecalciferol (Vitamin D3) 25 MCG TABLET 50 MCG PO (08:36)
[2024-12-03] MEDS: Metoclopramide HCl 5 MG TABLET PO (09:44)
[2024-12-03 11:47] LABS: Glucose, Whole Blood 111 mg/dL (60-115)
--- NOTE | 2024-12-03 13:12 | P.PNIM_ITS ---
Subjective Subjective Date of Service: 12/03/24 Interval History: dm Review of Systems eating somewhat better has some nause a Physical Exam 2 Vital Signs: Vital Signs: Last Vital Signs Temp 97.4 F 12/03/24 08:00 Pulse 105 H 12/03/24 08:00 Resp 18 12/03/24 08:00 BP 159/83 H 12/03/24 08:00 Pulse Ox 99 12/03/24 08:00 O2 Del Method Room Air 12/03/24 08:00 BMI result Body Mass Index 19.1 Appearance: Alert.? Oriented X3.? cvs: rrr, [id number]. res: clear to auscultation ,no rhonchii or wheezing abd: no rebound or guarding ,nt, bs present. ext pulses present , no cyanosis. neuro: axo3 , has cerebral palsy Objective Data Active Medications Acetaminophen (Acetaminophen 325 Mg Tablet) 975 mg PO Q6H PRN PRN Reason: mild pain, fever or headache Last Admin: 12/03/24 02:36 Dose: 975 mg Documented By: CLINT Atorvastatin Calcium (Atorvastatin Calcium 20 Mg Tablet) 20 mg PO DAILY [facility] Last Admin: 12/03/24 08:34 Dose: 20 mg Documented By: BHAKTI Glipizide (Glipizide 5 Mg Tablet) 5 mg PO DAILY [facility] Last Admin: 12/03/24 08:34 Dose: 5 mg Documented By: BHAKTI Heparin Sodium (Porcine) (Heparin Sodium,Porcine 5,000 Unit/Ml Vial) 5,000 unit SUBCUT Q12H [facility] Last Admin: 12/03/24 08:34 Dose: 5,000 unit Documented By: BHAKTI Insulin Glargine (Insulin Glargine,Hum.Rec.Anlog 100 Unit/Ml 10 Ml Vial) 20 unit SUBCUT DAILY [facility] Last Admin: 12/03/24 08:34 Dose: 20 unit Documented By: BHAKTI Insulin Human Lispro (Insulin Lispro 100 Unit/Ml 3 Ml Vial) 0 unit SUBCUT QIDACHS [facility]; Protocol Last Admin: 12/03/24 11:49 Dose: Not Given Documented By: BHAKTI Non-Admin Reason: No Insulin Coverage Omeprazole (Omeprazole 40 Mg Dilip.) 40 mg PO BID@0630,1630 [facility] Last Admin: 12/03/24 05:32 Dose: 40 mg Documented By: CLINT Ondansetron HCl (Ondansetron Hcl 4 Mg/2 Ml Vial) 4 mg IVPUSH Q8H PRN PRN Reason: Nausea and Vomiting Last Admin: 12/02/24 08:54 Dose: 4 mg Documented By: BHAKTI Ondansetron HCl (Ondansetron Odt 4 Mg Tab.Rapdis) 4 mg TRANSLINGU Q6H PRN PRN Reason: Nausea and Vomiting Last Admin: 12/03/24 01:23 Dose: 4 mg Documented By: CLINT Oxycodone HCl (Oxycodone Hcl Immed Release 5 Mg Tablet) 10 mg PO Q4H PRN PRN Reason: Pain, Severe (Pain Scale 7-10) Last Admin: 12/03/24 08:34 Dose: 10 mg Documented By: BHAKTI Vitamin D (Cholecalciferol (Vitamin D3) 25 Mcg Tablet) 50 mcg PO DAILY [facility] Last Admin: 12/03/24 08:36 Dose: 50 mcg Documented By: BHAKTI Labs 12/02/24 07:46 12/02/24 07:46 Labs: Laboratory Results - last 24 hr 12/02/24 12/02/24 12/03/24 16:16 19:56 08:10 POC Glucose 128 H 103 105 12/03/24 11:38 POC Glucose 111 Microbiology Microbiology Results: Microbiology 11/30/24 17:42 Blood Culture - Preliminary Blood - Venous No growth after 48 hours. 11/30/24 17:40 Blood Culture - Preliminary Blood - Venous No growth after 48 hours. Assessment and Plan (1) Fracture of right distal radius: Status: Acute (2) Diabetic keto-acidosis: Status: Acute Assessment and Plan: 44 y/o underlying type 1 diabetes mellitus cerebral palsy, gastroparesis, bronchodilators admitted on 11/30/2024 with 3 day history of nausea and vomiting not using his insulin for the same amount of time and also has a mechanical fall-patient was admitted to icu for dka . dm: Dka resolved and anion gap resolved with insulin/hydration continue lantus , fs /sliding scale coverage. po intake improving dm with gasteroparesis : nausea/unable to eat: continue zofran,reglan , ivf. could able to take some fluids ,still not able to tolerate regular diet right distal radius fx: largely nondisplaced nature of the fracture, the patient is informed that he will require no operative intervention at this time Patient will be placed into a volar wrist splint to be worn at all times until follow-up Keep splint clean, dry, intact After splint placement later today, no further acute orthopedic intervention is indicated. ortho eval outpatient. PT/OT -receomended rehab. hlp: statin dvt prophylax:s/c heparin ongoing need -dm gastroparesis -unable to tolerate regular food, need iv antiemtics and reglan , also need rehab . Quality Stroke Does the patient have a stroke diagnosis?: No VTE Prior VTE?: No VTE Risk Level:: Medical - moderate - high VTE Device Contraindication: N/A - Device Ordered VTE Drug Contraindication: N/A - Med Ordered
--- NOTE | 2024-12-03 14:36 | MHC.CM.PN ---
DP: PT IS PROJECTED TO BE READY FOR DC 12/04 TO ACUTE REHAB. [facility] OFFER[facility] A BED PENDING AUTH AND HAS BEGUN THE AUTH PROCESS. CM WILL AWAIT AUTH/APPROVAL FROM [facility] TO ADMIT. PT ACCEPTS PLAN.
[2024-12-03 15:19] VITALS: BP 134/77; PULSE 94; RESP 18; TEMP 36.7; O2SAT 99
--- NOTE | 2024-12-03 16:06 | PM.EVENT ---
Event Note Date of Service: 12/03/24 Event Note: 44 y/o underlying type 1 diabetes mellitus cerebral palsy, gastroparesis, bronchodilators admitted on 11/30/2024 with 3 day history of nausea and vomiting not using his insulin for the same amount of time and also has a mechanical fall-patient was admitted to icu for dka received IV fluid and insulin-DKA seems to be improved, right distal radius fracture-status post splint. Patient has underlying cerebral palsy, also now radius distal fracture-seen by PT and OT: patient is unable to bear weight through the right wrist due to fracture and setup w/plate walker -due to impaired bed mobility, safety, transfer ability and standing, generalized weakness: Patient will benefit from acute rehab. Time Spent With Patient Time: Total time managing care of this patient today ____ minutes.
[2024-12-03 16:08] LABS: Glucose, Whole Blood 167 mg/dL (60-115)
[2024-12-03] MEDS: Insulin Lispro 100 UNIT/ML 3 ML VIAL SUBCUT ×2 (17:04→21:15)
--- NOTE | 2024-12-03 18:03 | HO.WOUND ---
Wound Consult: Initial 44yr old male? admitted to [facility] on 11/30/24 19:51- See progress notes and H&P for detailed history.? Wound consult placed for bilateral ischium.? Patient agreeable to assessment and photo documentation.? Left Ischium Right Ischium Etiology: ??Unstageable Pressure Injury Present on Admission Wound Bed: adherent yellow slough noted to wound bed Drainage / Odor: patel scant no odor noted Edges: ? irregular Cecy wound: pink and hyperpigmentation noted ? No Induration, Fluctuance or Warmth noted Pain: denies Goals of Treatment: ? Triad and foam dressing Recommendations: 1. Turn and Reposition every 2 hours and as needed for patient comfort.? Use pillows or wedges to support off loading positions. 2. Off Load all bony prominences with use of pillows and heel boots if needed.? Apply Preventative foams where needed. ? 3. Monitor for incontinence and moisture control, use barrier creams when needed for prevention and treatment. 4. Provide adequate and supplemental nutrition.? 5. Order low air loss mattress. 6. When applicable maintain blood glucose levels per Providers order. 7. Bilateral Ischium - Off Load Pressure with Q2 hr turns and use of pillows - Cleanse with PH balance spray or wipes, pat dry. ?Apply thin layer of Triad to wound bed. Do not remove all of paste between applications as this may cause further skin damage.? Cover with foam dressing to aid in off loading and protection from friction. Change every 5 days and PRN. 8. Sacrum - Apply preventative sacral foam dressing change every 5 days and PRN. Re-consult wound care Nurse for wound deterioration or wound changes.
[2024-12-03] MEDS: ondansetron HCL 4 MG/2 ML VIAL IVPUSH (19:05)
[2024-12-03 19:44] VITALS: BP 137/80; PULSE 107; RESP 18; TEMP 37; O2SAT 99
[2024-12-03 20:27] LABS: Glucose, Whole Blood 218 mg/dL (60-115)
[2024-12-04] MEDS: oxyCODONE HCl Immed Release 5 MG TABLET 10 MG PO ×4 (00:10→17:53)
[2024-12-04 00:12] VITALS: BP 135/76; PULSE 87
[2024-12-04 04:00] VITALS: BP 110/63; PULSE 82; RESP 16; TEMP 37.1; O2SAT 98
[2024-12-04] MEDS: ondansetron HCL 4 MG/2 ML VIAL IVPUSH (05:27)
[2024-12-04 07:27] VITALS: BP 135/75; PULSE 84; RESP 18; TEMP 36.2; O2SAT 99
[2024-12-04 07:35] LABS: Glucose, Whole Blood 92 mg/dL (60-115)
[2024-12-04] MEDS: Cholecalciferol (Vitamin D3) 25 MCG TABLET 50 MCG PO (09:27)
[2024-12-04] MEDS: Atorvastatin Calcium 20 MG TABLET PO (09:28)
[2024-12-04] MEDS: Heparin Sodium,Porcine 5,000 UNIT/ML VIAL 5000 UNIT SUBCUT ×2 (09:28→21:26)
[2024-12-04] MEDS: glipiZIDE 5 MG TABLET PO (09:28)
[2024-12-04] MEDS: Insulin Glargine,Hum.rec.anlog 100 UNIT/ML 10 ML VIAL 20 UNIT SUBCUT (09:28)
[2024-12-04 11:15] LABS: Glucose, Whole Blood 172 mg/dL (60-115)
[2024-12-04] MEDS: Insulin Lispro 100 UNIT/ML 3 ML VIAL SUBCUT ×2 (12:38→21:27)
--- NOTE | 2024-12-04 13:55 | HO.PM.IMPN ---
Subjective Subjective Date of Service: 12/04/24 Interval History: seen and evaluated reporting pain in his right arm tolerating PO blood sugar controlled Review of Systems Review of Systems: Yes all other systems are reviewed and are negative Physical Exam Vital Signs: Vital Signs: Last Vital Signs Temp 97.2 F 12/04/24 07:27 Pulse 84 12/04/24 07:27 Resp 18 12/04/24 07:27 BP 135/75 12/04/24 07:27 Pulse Ox 99 12/04/24 07:27 O2 Del Method Room Air 12/04/24 07:27 BMI result Body Mass Index 19.1 Const: Other: Constitutional : interactive, not in distress Cardiovascular : no JVP, no lower extremity edema Respiratory : bilateral chest movement, not in resp distress Gastrointestinal: soft, lax, Non tender Skin : Warm, Dry EXtremities: Right arm in splint Neurological : Alert & oriented , No focal deficit Objective Data Active Medications Acetaminophen (Acetaminophen 325 Mg Tablet) 975 mg PO Q6H PRN PRN Reason: mild pain, fever or headache Last Admin: 12/03/24 02:36 Dose: 975 mg Documented By: CLINT Atorvastatin Calcium (Atorvastatin Calcium 20 Mg Tablet) 20 mg PO DAILY [facility] Last Admin: 12/04/24 09:28 Dose: 20 mg Documented By: MARTHA Glipizide (Glipizide 5 Mg Tablet) 5 mg PO DAILY [facility] Last Admin: 12/04/24 09:28 Dose: 5 mg Documented By: MARTHA Heparin Sodium (Porcine) (Heparin Sodium,Porcine 5,000 Unit/Ml Vial) 5,000 unit SUBCUT Q12H [facility] Last Admin: 12/04/24 09:28 Dose: 5,000 unit Documented By: MARTHA Insulin Glargine (Insulin Glargine,Hum.Rec.Anlog 100 Unit/Ml 10 Ml Vial) 20 unit SUBCUT DAILY [facility] Last Admin: 12/04/24 09:28 Dose: 20 unit Documented By: MARTHA Insulin Human Lispro (Insulin Lispro 100 Unit/Ml 3 Ml Vial) 0 unit SUBCUT QIDACHS [facility]; Protocol Last Admin: 12/04/24 12:38 Dose: 2 unit Documented By: MARTHA Metoclopramide HCl (Metoclopramide Hcl 10 Mg/2 Ml Vial) 5 mg IVPUSH Q6H PRN PRN Reason: Nausea Omeprazole (Omeprazole 40 Mg Capsule.Dr) 40 mg PO BID@0630,1630 [facility] Last Admin: 12/04/24 06:25 Dose: Not Given Documented By: MERY Non-Admin Reason: Nausea Ondansetron HCl (Ondansetron Hcl 4 Mg/2 Ml Vial) 4 mg IVPUSH Q8H PRN PRN Reason: Nausea and Vomiting Last Admin: 12/04/24 05:27 Dose: 4 mg Documented By: MERY Ondansetron HCl (Ondansetron Odt 4 Mg Tab.Rapdis) 4 mg TRANSLINGU Q6H PRN PRN Reason: Nausea and Vomiting Last Admin: 12/03/24 01:23 Dose: 4 mg Documented By: CLINT Oxycodone HCl (Oxycodone Hcl Immed Release 5 Mg Tablet) 10 mg PO Q4H PRN PRN Reason: Pain, Severe (Pain Scale 7-10) Last Admin: 12/04/24 10:48 Dose: 10 mg Documented By: MARTHA Vitamin D (Cholecalciferol (Vitamin D3) 25 Mcg Tablet) 50 mcg PO DAILY [facility] Last Admin: 12/04/24 09:27 Dose: 50 mcg Documented By: MARTHA Labs 12/02/24 07:46 12/02/24 07:46 Labs: Laboratory Results - last 24 hr 12/03/24 12/03/24 12/04/24 16:03 20:23 07:31 POC Glucose 167 H 218 H 92 12/04/24 11:11 POC Glucose 172 H Assessment and Plan (1) Diabetic keto-acidosis: Status: Acute Assessment and Plan: 44 y/o underlying type 1 diabetes mellitus cerebral palsy, gastroparesis, bronchodilators admitted on 11/30/2024 with 3 day history of nausea and vomiting not using his insulin for the same amount of time and also has a mechanical fall-patient was admitted to icu for dka . DMII with DKA on presentation sugar better controlled continue lantus , fs /sliding scale coverage. po intake improving Gastroparesis tolerating PO, advance as tolerated continue zofran,reglan , ivf. right distal radius fx: largely nondisplaced nature of the fracture, the patient is informed that he will require no operative intervention at this time Patient will be placed into a volar wrist splint to be worn at all times until follow-up Keep splint clean, dry, intact After splint placement later today, no further acute orthopedic intervention is indicated. ortho eval outpatient. PT/OT -receomended rehab. hlp: statin dvt prophylax:s/c heparin ongoing need -dm gastroparesis need iv antiemtics and reglan , also need rehab . (2) Fracture of right distal radius: Status: Acute (3) Physical deconditioning: Status: Acute Quality Stroke Does the patient have a stroke diagnosis?: No VTE Prior VTE?: No VTE Risk Level:: Medical - moderate - high VTE Device Contraindication: N/A - Device Ordered VTE Drug Contraindication: N/A - Med Ordered
[2024-12-04 15:18] VITALS: BP 117/91; PULSE 97; RESP 18; TEMP 37; O2SAT 99
[2024-12-04 16:05] LABS: Glucose, Whole Blood 145 mg/dL (60-115)
[2024-12-04] MEDS: Omeprazole 40 MG CAPSULE.DR PO (17:21)
[2024-12-04 19:42] VITALS: BP 158/85; PULSE 90; RESP 18; TEMP 36.7; O2SAT 98
[2024-12-04 20:49] LABS: Glucose, Whole Blood 184 mg/dL (60-115)
[2024-12-04] MEDS: Metoclopramide HCl 10 MG/2 ML VIAL 5 MG IVPUSH (21:33)
[2024-12-05] MEDS: oxyCODONE HCl Immed Release 5 MG TABLET 10 MG PO ×3 (00:56→19:45)
[2024-12-05] MEDS: chlorproMAZINE HCl 25 MG in 0.9 % Sodium Chloride 50 ML 51 MG IV ×2 (00:57→18:00)
--- NOTE | 2024-12-05 00:59 | PC.NURSE ---
patient with persistent hiccups, Thorazine administered per MAR
[2024-12-05 01:00] VITALS: BP 158/84; PULSE 87
[2024-12-05 01:25] VITALS: RESP 16
[2024-12-05 04:00] VITALS: BP 102/61; PULSE 103; RESP 18; TEMP 36.6; O2SAT 98
[2024-12-05 07:30] VITALS: BP 107/66; PULSE 101; RESP 16; TEMP 37.7; O2SAT 96
[2024-12-05 07:38] LABS: Glucose, Whole Blood 106 mg/dL (60-115)
[2024-12-05] MEDS: Omeprazole 40 MG CAPSULE.DR PO ×2 (09:19→17:53)
[2024-12-05] MEDS: Cholecalciferol (Vitamin D3) 25 MCG TABLET 50 MCG PO (09:19)
[2024-12-05] MEDS: Heparin Sodium,Porcine 5,000 UNIT/ML VIAL 5000 UNIT SUBCUT ×2 (09:19→19:45)
[2024-12-05] MEDS: Atorvastatin Calcium 20 MG TABLET PO (09:19)
[2024-12-05] MEDS: glipiZIDE 5 MG TABLET PO (09:19)
[2024-12-05] MEDS: Insulin Glargine,Hum.rec.anlog 100 UNIT/ML 10 ML VIAL 20 UNIT SUBCUT (09:20)
[2024-12-05 11:09] LABS: Glucose, Whole Blood 304 mg/dL (60-115)
[2024-12-05] MEDS: Insulin Lispro 100 UNIT/ML 3 ML VIAL SUBCUT (11:48)
--- NOTE | 2024-12-05 13:19 | HO.PM.IMPN ---
Subjective Subjective Date of Service: 12/05/24 Interval History: seen and evaluated reporting pain in his right arm tolerating PO blood sugar controlled Physical Exam Vital Signs: Vital Signs: Last Vital Signs Temp 99.8 F 12/05/24 07:30 Pulse 101 H 12/05/24 07:30 Resp 16 12/05/24 07:30 BP 107/66 12/05/24 07:30 Pulse Ox 96 12/05/24 07:30 O2 Del Method Room Air 12/05/24 07:30 BMI result Body Mass Index 19.1 Const: Other: Constitutional : interactive, not in distress Cardiovascular : no JVP, no lower extremity edema Respiratory : bilateral chest movement, not in resp distress Gastrointestinal: soft, lax, Non tender Skin : Warm, Dry EXtremities: Right arm in splint Neurological : Alert & oriented , No focal deficit Objective Data Active Medications Acetaminophen (Acetaminophen 325 Mg Tablet) 975 mg PO Q6H PRN PRN Reason: mild pain, fever or headache Last Admin: 12/03/24 02:36 Dose: 975 mg Documented By: CLINT Atorvastatin Calcium (Atorvastatin Calcium 20 Mg Tablet) 20 mg PO DAILY [facility] Last Admin: 12/05/24 09:19 Dose: 20 mg Documented By: MARTHA Glipizide (Glipizide 5 Mg Tablet) 5 mg PO DAILY [facility] Last Admin: 12/05/24 09:19 Dose: 5 mg Documented By: MARTHA Heparin Sodium (Porcine) (Heparin Sodium,Porcine 5,000 Unit/Ml Vial) 5,000 unit SUBCUT Q12H [facility] Last Admin: 12/05/24 09:19 Dose: 5,000 unit Documented By: MARTHA Insulin Glargine (Insulin Glargine,Hum.Rec.Anlog 100 Unit/Ml 10 Ml Vial) 20 unit SUBCUT DAILY [facility] Last Admin: 12/05/24 09:20 Dose: 20 unit Documented By: MARTHA Insulin Human Lispro (Insulin Lispro 100 Unit/Ml 3 Ml Vial) 0 unit SUBCUT QIDACHS [facility]; Protocol Last Admin: 12/05/24 11:48 Dose: 8 unit Documented By: MARTHA Metoclopramide HCl (Metoclopramide Hcl 10 Mg/2 Ml Vial) 5 mg IVPUSH Q6H PRN PRN Reason: Nausea Last Admin: 12/04/24 21:33 Dose: 5 mg Documented By: PATITO Omeprazole (Omeprazole 40 Mg Capsule.Dr) 40 mg PO BID@0630,1630 [facility] Last Admin: 12/05/24 09:19 Dose: 40 mg Documented By: MARTHA Ondansetron HCl (Ondansetron Hcl 4 Mg/2 Ml Vial) 4 mg IVPUSH Q8H PRN PRN Reason: Nausea and Vomiting Last Admin: 12/04/24 05:27 Dose: 4 mg Documented By: MERY Ondansetron HCl (Ondansetron Odt 4 Mg Tab.Rapdis) 4 mg TRANSLINGU Q6H PRN PRN Reason: Nausea and Vomiting Last Admin: 12/03/24 01:23 Dose: 4 mg Documented By: CLINT Oxycodone HCl (Oxycodone Hcl Immed Release 5 Mg Tablet) 10 mg PO Q4H PRN PRN Reason: Pain, Severe (Pain Scale 7-10) Last Admin: 12/05/24 00:56 Dose: 10 mg Documented By: MERY Vitamin D (Cholecalciferol (Vitamin D3) 25 Mcg Tablet) 50 mcg PO DAILY [facility] Last Admin: 12/05/24 09:19 Dose: 50 mcg Documented By: MARTHA Labs 12/02/24 07:46 12/02/24 07:46 Labs: Laboratory Results - last 24 hr 12/04/24 12/04/24 12/05/24 16:00 20:29 07:32 POC Glucose 145 H 184 H 106 12/05/24 11:06 POC Glucose 304 H Assessment and Plan (1) Diabetic keto-acidosis: Status: Acute Assessment and Plan: 44 y/o underlying type 1 diabetes mellitus cerebral palsy, gastroparesis, bronchodilators admitted on 11/30/2024 with 3 day history of nausea and vomiting not using his insulin for the same amount of time and also has a mechanical fall-patient was admitted to icu for dka . DMII with DKA on presentation sugar better controlled continue lantus , fs /sliding scale coverage. po intake improving Gastroparesis tolerating PO, advance as tolerated continue zofran,reglan , ivf. right distal radius fx: largely nondisplaced nature of the fracture, the patient is informed that he will require no operative intervention at this time Patient will be placed into a volar wrist splint to be worn at all times until follow-up Keep splint clean, dry, intact After splint placement later today, no further acute orthopedic intervention is indicated. ortho eval outpatient. PT/OT -receomended rehab. hlp: statin dvt prophylax:s/c heparin ongoing need -dm gastroparesis need iv antiemtics and reglan , also need rehab . (2) Physical deconditioning: Status: Acute Quality Stroke Does the patient have a stroke diagnosis?: No VTE Prior VTE?: No VTE Risk Level:: Medical - moderate - high VTE Device Contraindication: N/A - Device Ordered VTE Drug Contraindication: N/A - Med Ordered
[2024-12-05 15:41] VITALS: BP 134/85; PULSE 115; RESP 18; TEMP 37.3; O2SAT 97
[2024-12-05 15:50] LABS: Glucose, Whole Blood 86 mg/dL (60-115)
[2024-12-05 19:15] VITALS: BP 154/84; PULSE 104; RESP 20; TEMP 37.6; O2SAT 96
[2024-12-05 20:01] LABS: Glucose, Whole Blood 146 mg/dL (60-115)
[2024-12-06] MEDS: oxyCODONE HCl Immed Release 5 MG TABLET 10 MG PO ×4 (01:32→20:23)
[2024-12-06 04:00] VITALS: BP 130/75; PULSE 114; RESP 18; TEMP 37.2; O2SAT 98
[2024-12-06] MEDS: Omeprazole 40 MG CAPSULE.DR PO ×2 (05:17→16:27)
[2024-12-06 07:12] VITALS: BP 144/91; PULSE 104; RESP 18; TEMP 37.4; O2SAT 98
[2024-12-06 07:22] LABS: Glucose, Whole Blood 302 mg/dL (60-115)
[2024-12-06] MEDS: Insulin Lispro 100 UNIT/ML 3 ML VIAL SUBCUT ×4 (07:41→20:33)
[2024-12-06] MEDS: Heparin Sodium,Porcine 5,000 UNIT/ML VIAL 5000 UNIT SUBCUT ×2 (07:41→20:23)
[2024-12-06 08:58] LABS: Anion Gap 12 (12-20); Blood Urea Nitrogen 13 mg/dL (9-16); Calcium 8.6 mg/dL (8.4-10.2); Carbon Dioxide 31 mmol/L (22-29); Chloride 96 mmol/L (96-108); Creatinine Clr Calc Pharmacy 84.5; Estimated Glomerular Filt Rate > 60; Glucose Random 293 mg/dL (60-115); Potassium 2.9 mmol/L (3.3-5.1); Sodium 136 mmol/L (135-145)
[2024-12-06] MEDS: Cholecalciferol (Vitamin D3) 25 MCG TABLET 50 MCG PO (09:14)
[2024-12-06] MEDS: Insulin Glargine,Hum.rec.anlog 100 UNIT/ML 10 ML VIAL 20 UNIT SUBCUT (09:14)
[2024-12-06] MEDS: Potassium Chloride Packet 20 MEQ PACKET 40 MEQ PO (09:14)
[2024-12-06] MEDS: Atorvastatin Calcium 20 MG TABLET PO (09:14)
[2024-12-06] MEDS: glipiZIDE 5 MG TABLET PO (09:14)
[2024-12-06 11:22] LABS: Glucose, Whole Blood 153 mg/dL (60-115)
--- NOTE | 2024-12-06 14:16 | HO.PM.IMPN ---
Subjective Subjective Date of Service: 12/06/24 Interval History: seen and evaluated reporting pain in his right arm tolerating PO blood sugar controlled Physical Exam Vital Signs: Vital Signs: Last Vital Signs Temp 99.3 F 12/06/24 07:12 Pulse 104 H 12/06/24 07:12 Resp 18 12/06/24 07:12 BP 144/91 H 12/06/24 07:12 Pulse Ox 98 12/06/24 07:12 O2 Del Method Room Air 12/06/24 07:12 BMI result Body Mass Index 19.1 Const: Other: Constitutional : interactive, not in distress Cardiovascular : no JVP, no lower extremity edema Respiratory : bilateral chest movement, not in resp distress Gastrointestinal: soft, lax, Non tender Skin : Warm, Dry EXtremities: Right arm in splint Neurological : Alert & oriented , No focal deficit Objective Data Active Medications Acetaminophen (Acetaminophen 325 Mg Tablet) 975 mg PO Q6H PRN PRN Reason: mild pain, fever or headache Last Admin: 12/03/24 02:36 Dose: 975 mg Documented By: CLINT Atorvastatin Calcium (Atorvastatin Calcium 20 Mg Tablet) 20 mg PO DAILY [facility] Last Admin: 12/06/24 09:14 Dose: 20 mg Documented By: RONALD Glipizide (Glipizide 5 Mg Tablet) 5 mg PO DAILY [facility] Last Admin: 12/06/24 09:14 Dose: 5 mg Documented By: RONALD Heparin Sodium (Porcine) (Heparin Sodium,Porcine 5,000 Unit/Ml Vial) 5,000 unit SUBCUT Q12H [facility] Last Admin: 12/06/24 07:41 Dose: 5,000 unit Documented By: RONALD Insulin Glargine (Insulin Glargine,Hum.Rec.Anlog 100 Unit/Ml 10 Ml Vial) 20 unit SUBCUT DAILY [facility] Last Admin: 12/06/24 09:14 Dose: 20 unit Documented By: RONALD Insulin Human Lispro (Insulin Lispro 100 Unit/Ml 3 Ml Vial) 0 unit SUBCUT QIDACHS [facility]; Protocol Last Admin: 12/06/24 11:31 Dose: 2 unit Documented By: RONALD Metoclopramide HCl (Metoclopramide Hcl 10 Mg/2 Ml Vial) 5 mg IVPUSH Q6H PRN PRN Reason: Nausea Last Admin: 12/04/24 21:33 Dose: 5 mg Documented By: DOBROAkosua Omeprazole (Omeprazole 40 Mg Capsule.Dr) 40 mg PO BID@0630,1630 [facility] Last Admin: 12/06/24 05:17 Dose: 40 mg Documented By: CNOOR Ondansetron HCl (Ondansetron Odt 4 Mg Tab.Rapdis) 4 mg TRANSLINGU Q6H PRN PRN Reason: Nausea and Vomiting Last Admin: 12/03/24 01:23 Dose: 4 mg Documented By: HECTORRISSamantha Oxycodone HCl (Oxycodone Hcl Immed Release 5 Mg Tablet) 10 mg PO Q4H PRN PRN Reason: Pain, Severe (Pain Scale 7-10) Last Admin: 12/06/24 13:19 Dose: 10 mg Documented By: RONALD Vitamin D (Cholecalciferol (Vitamin D3) 25 Mcg Tablet) 50 mcg PO DAILY [facility] Last Admin: 12/06/24 09:14 Dose: 50 mcg Documented By: RONALD Labs 12/02/24 07:46 12/06/24 07:44 Labs: Laboratory Results - last 24 hr 12/05/24 12/05/24 12/06/24 15:45 19:23 07:16 Hold Purple Top Anion Gap Estim Creat Clear Calc Estimated GFR POC Glucose 86 146 H 302 H Random Glucose Calcium 12/06/24 12/06/24 07:44 11:18 Hold Purple Top SEE NOTE Anion Gap 12 Estim Creat Clear Calc 84.5 Estimated GFR > 60 POC Glucose 153 H Random Glucose 293 H Calcium 8.6 Microbiology Microbiology Results: Microbiology 11/30/24 17:42 Blood Culture - Final Blood - Venous No growth after 5 days. 11/30/24 17:40 Blood Culture - Final Blood - Venous No growth after 5 days. Assessment and Plan (1) Diabetic keto-acidosis: Status: Acute (2) Physical deconditioning: Status: Acute Plan 44 y/o underlying type 1 diabetes mellitus cerebral palsy, gastroparesis, bronchodilators admitted on 11/30/2024 with 3 day history of nausea and vomiting not using his insulin for the same amount of time and also has a mechanical fall-patient was admitted to icu for dka . DMII with DKA on presentation sugar better controlled continue lantus , fs /sliding scale coverage. po intake improving physical deconditioning PT rec STR , pending placement Gastroparesis w hiccups tolerating PO, advance as tolerated needed Thorazine for symptoms control continue saba wu dc ivf. right distal radius fx: largely nondisplaced nature of the fracture, the patient is informed that he will require no operative intervention at this time Patient will be placed into a volar wrist splint to be worn at all times until follow-up Keep splint clean, dry, intact After splint placement later today, no further acute orthopedic intervention is indicated. ortho eval outpatient. hlp: statin dvt prophylax:s/c heparin ongoing need -dm gastroparesis need iv antiemtics and reglan , also need rehab . Quality Stroke Does the patient have a stroke diagnosis?: No VTE Prior VTE?: No VTE Risk Level:: Medical - moderate - high VTE Device Contraindication: N/A - Device Ordered VTE Drug Contraindication: N/A - Med Ordered
[2024-12-06] MEDS: Potassium Chloride ER 20 MEQ TAB.ER.PRT 40 MEQ PO (15:02)
[2024-12-06] MEDS: Potassium Chloride/H20 10 MEQ/100 ML PIGGYBACK 100 MEQ IV (15:10)
[2024-12-06 15:25] VITALS: BP 145/89; PULSE 115; RESP 16; TEMP 37.1; O2SAT 97
--- NOTE | 2024-12-06 15:32 | MHC.CM.PN ---
Addendum entered by Nguyen Weaver 12/06/24 16:18: [facility] HAS OBTAINED AUTH FOR 12/07, S TRANSPORT BOOKED FOR 11 AM VIA [facility]. [facility] AUTH FOR TRANSPORT OBTAINED. MD AWARE. Original Note: EMR REVIEWED AND PER MD ROUNDS, PT IS MEDICALLY CLEAR FOR DC TO REHAB. [facility] CONTIN[facility] TO [facility] DECISION IF WILL AUTH FOR AR, HAS GONE TO MD TO REVIEW. HAS PLACED STR REFERRALS AT THIS TIME AND [facility] HAS OFFERED A BE PENDING AUTH. PT IS AGREEABLE TO THIS PLAN. CM WILL CONTINUE TO FOLLOW FOR PLAN.
[2024-12-06 16:13] LABS: Glucose, Whole Blood 209 mg/dL (60-115)
[2024-12-06] MEDS: chlorproMAZINE HCl 25 MG in 0.9 % Sodium Chloride 50 ML 51 MG IV (16:27)
[2024-12-06] MEDS: Baclofen 20 MG TABLET PO (16:27)
[2024-12-06 17:26] VITALS: PULSE 106
[2024-12-06] MEDS: Metoclopramide HCl 10 MG/2 ML VIAL 5 MG IVPUSH (17:34)
[2024-12-06 20:00] VITALS: BP 125/72; PULSE 88; RESP 15; TEMP 36.7; O2SAT 96
[2024-12-06 20:33] LABS: Glucose, Whole Blood 167 mg/dL (60-115)
[2024-12-07 03:46] VITALS: BP 115/66; PULSE 99; RESP 16; TEMP 36.8; O2SAT 96
[2024-12-07] MEDS: Omeprazole 40 MG CAPSULE.DR PO (05:43)
[2024-12-07] MEDS: oxyCODONE HCl Immed Release 5 MG TABLET 10 MG PO (05:45)
--- NOTE | 2024-12-07 07:16 | P.DS_ITS ---
DS: Providers Provider Date of Service: 12/07/24 Date of admission: 11/30/24 19:51 Date of discharge: 12/07/24 Primary care physician: Isabell Young MD Consults: 12/01/24 08:00 Consult to Orthopedics Routine Consulting Provider: [facility] Reason for consultation: R distal radius / scaphod fx ? cast Has provider been notified: No 12/03/24 12:49 Consult to Wound Care Routine Reason for consultation: abrasion/skin tear bilateral buttocks DS: Diagnosis Discharge Diagnosis (1) Diabetic keto-acidosis: Status: Acute (2) Physical deconditioning: Status: Acute (3) Fracture of right distal radius: Status: Acute (4) Diabetes mellitus with gastroparesis: Status: Acute (5) Acute renal failure: Status: Acute (6) Hypokalemia: Status: Acute (7) Hyponatremia: Status: Acute DS: Summary Hospital Course Hospital Course: Admission note HPI The patient is a late onset type 1 diabetic, mild depression, cerebral palsy (spastic diplegic), gastroparesis, pancolitis, nephrolithiasis, GERD, who presents to us after being seen in the emergency room with complaints of 3 days' worth of nausea, vomiting and diarrhea who has missed his insulin administration were the past 3 days.? The patient was transferred via EMS.? On arrival he had complained of diffuse abdominal pain nausea and vomiting. ER workup reveals a white count 21.3, H and H of 16.745.8 respectively, platelets 411.? Sodium 119, potassium 4.4, chloride 77, carbon dioxide less than 5, BUN 57, creatinine 2.44, random glucose 746, beta hydroxybutyrate acid 15.2.? Urinalysis revealed proteinuria and glucosuria otherwise no UTI.? Respiratory panel negative.? Chest x-ray no acute disease.? Right wrist x-ray shows findings consistent with possible fractures of the distal scaphoid and distal radius. Patient was given 1 L of normal saline, 10 units of IV insulin and was placed on an insulin drip at 6 units/hour, he also received Zofran and morphine for pain.? Patient was thus transferred to the ICU for further care. Hospital course The patient was treated for the following: # Late onset Type I DM with DKA on presentation The patient was admitted to the ICU for insulin drip. monitored closely for acute kidney failure and received IV fluids with fair response as sugar better controlled and he was able to tolerate diet and switched to Lantus and SSI with good control over blood sugar level. he will be discharged on Lantus 20 units, SSI and Metformin to follow with PCP for further adjustment of his medications. # Acute renal failure, responded well to IV fluids and improved back to baseline. # physical deconditioning, PT evaluated the patient and recommended STR # Acute hypokalemia. received replacement and monitored . # Acute hyponatremia, corrected with fluids. # Gastroparesis w hiccups RElated to diabetes history. responded to Reglan and Zofran. received doses of Thorazine with some effect as well. To discharge on PRN Reglan and advised to have small portions of meals frequently over the day. # right distal radius fx: largely nondisplaced nature of the fracture, the patient is informed that he will require no operative intervention at this time by orthopedic team who recommended arm to be placed into a volar wrist splint to be worn at all times until follow-up as outpatient. Keep splint clean, dry, intact. Discharge plan Take Tylenol 1 gm and Ibuprofen 400 three times a day Oxycodone as needed for severe pain Continue Lantus 20 units daily Continue Sliding scale insulin Continue Metformin Increase physical activity as tolerated Follow with [facility] as outpatient for radial fracture The patient will likely need less than 30 days of SNF stay. Time Attestation Discharge Coordination Time (in mins): 46 Quality: Safe Use of Opioids Does Pt have an Active Cancer Diagnosis on the Problem List?: No Quality: Stroke Does the patient have a stroke diagnosis?: No Physical Exam Vital Signs: Vital Signs: Last Vital Signs Temp 98.3 F 12/07/24 03:46 Pulse 99 12/07/24 03:46 Resp 16 12/07/24 03:46 BP 115/66 12/07/24 03:46 Pulse Ox 96 12/07/24 03:46 O2 Del Method Room Air 12/07/24 03:46 BMI result Body Mass Index 19.1 Const: Other: Constitutional : interactive, not in distress Cardiovascular : no JVP, no lower extremity edema Respiratory : bilateral chest movement, not in resp distress Gastrointestinal: soft, lax, Non tender Skin : Warm, Dry EXtremities: Right arm in splint Neurological : Alert & oriented , muscle wasting and diplegic in lower extremities DS: Data Data Completed and Pending Completed studies during hospitalization [Text1]: Procedures Excision of Stomach, Pylorus, Via Natural or Artificial Opening Endoscopic, Diagnostic (01/13/22) Introduction of Remdesivir Anti-infective into Peripheral Vein, Percutaneous Approach, [employer] (09/09/22) Labs on day of discharge: Laboratory Results - last 24 hr 12/06/24 12/06/24 12/06/24 07:16 07:44 11:18 Hold Purple Top SEE NOTE Sodium 136 Potassium 2.9 L* Chloride 96 Carbon Dioxide 31 H Anion Gap 12 BUN 13 Creatinine 0.78 Estim Creat Clear Calc 84.5 Estimated GFR > 60 POC Glucose 302 H 153 H Random Glucose 293 H Calcium 8.6 12/06/24 12/06/24 16:08 20:28 Hold Purple Top Sodium Potassium Chloride Carbon Dioxide Anion Gap BUN Creatinine Estim Creat Clear Calc Estimated GFR POC Glucose 209 H 167 H Random Glucose Calcium Imaging Chest x-ray: Radiologist's impression: CT Wrist Impression: Mildly impacted distal radial metaphyseal fracture. No scaphoid fracture. This document has been electronically signed by: Mina Ruelas MD, PHD on 11/30/2024 23:23:[address] IMPRESSION: 1. No acute intracranial findings. This document has been electronically signed by: Mina Ruelas MD, PHD on 12/01/2024 00:28:20 Discharge Plan Discharge Anticipated Discharge Date/Time: 12/07/24 07:11 Patient Disposition: Xfer SNF Discharge Diagnosis: Physical deconditioning DKA Hiccups Referrals: [facility] [Outside] - 1 Week (transfer for short term rehab) [facility] [Outside] - 1 Week Isabell Blue MD [Primary Care Provider] - 1 Week Discharge Medications: New metoclopramide HCl 10 mg tablet 10 mg PO Q6H PRN (Reason: nausea and vomiting) Qty: 30 0RF oxycodone 5 mg tablet 5 mg PO Q6H PRN (Reason: pain (scale score 7-10)) Qty: 20 0RF Rx Instructions: Partial Fill upon patient request. Continued (DME) blood-glucose meter [FreeStyle Lite Meter] Kit See Rx Instructions .Route Qty: 1 0RF Rx Instructions: As directed (DME) disposable gloves Package See Rx Instructions .Route Qty: 2 0RF Rx Instructions: As directed (DME) FreeStyle Test Strip See Rx Instructions .Route Qty: 50 11RF Rx Instructions: Use 1 test strip once a day rosuvastatin 5 mg tablet 5 mg PO DAILY 90 Days Qty: 90 1RF (DME) pen needle, diabetic [BD Ultra-Fine Micro Pen Needle] 32 gauge x 1/4 needle See Rx Instructions .ROUTE .COMPLEX Qty: 100 0RF Dose Instruction: USE FOR INJECTIONS FOUR TIMES DAILY Rx Instructions: USE FOR INJECTIONS FOUR TIMES DAILY (DME) crutch tips 8 See Rx Instructions .Route .MEDSUPPLY Qty: 2 0RF Rx Instructions: As directed (DME) Dexcom G7 Sensor Device See Rx Instructions .ROUTE .COMPLEX Qty: 3 0RF Dose Instruction: USE DIRECTED, CHANGE SENSOR EVERY 10 DAYS Rx Instructions: USE DIRECTED, CHANGE SENSOR EVERY 10 DAYS (DME) ankle wraps See Rx Instructions .Route .MEDSUPPLY Qty: 1 0RF Rx Instructions: As directed cholecalciferol (vitamin D3) 50 mcg (2,000 unit) capsule 50 mcg PO DAILY 90 Days Qty: 90 1RF omeprazole 40 mg capsule,delayed release(DR/EC) 40 mg PO BID Qty: 180 0RF glipizide 5 mg tablet 5 mg PO DAILY (DME) wheelchair electric See Rx Instructions .Route .MEDSUPPLY Qty: 1 0RF Rx Instructions: As directed insulin aspart U-100 [Novolog FlexPen U-100 Insulin] 100 unit/mL (3 mL) insulin pen 5 unit subcut TID Qty: 15 5RF Changed insulin glargine [Lantus Solostar U-100 Insulin] 100 unit/mL (3 mL) insulin pen 20 unit subcut DAILY Qty: 15 0RF Discharge Orders: Discharge Order (Routine); Ordered 12/07/24 Ordered By: Divya Healy Diet: Advance to usual diet Activity on Discharge: As tolerated Stand Alone Forms: Patient Portal Discharge page Print Language: Polish Care Plan Goals: Take Tylenol 1 gm and Ibuprofen 400 three times a day Oxycodone as needed for severe pain Continue Lantus 20 units daily Continue Sliding scale insulin Continue Metformin Increase physical activity as tolerated Follow with Orthopedic [facility] as outpatient for radial fracture Health Concerns: Diabetes Hiccups Right radial fracture Plan of Treatment: Insulin Pain medication Orthopedic follow up Assessment: as above
[2024-12-07 07:18] VITALS: BP 131/78; PULSE 97; RESP 16; TEMP 36.8; O2SAT 99
[2024-12-07 07:43] LABS: Glucose, Whole Blood 314 mg/dL (60-115)
[2024-12-07] MEDS: Heparin Sodium,Porcine 5,000 UNIT/ML VIAL 5000 UNIT SUBCUT (07:54)
[2024-12-07] MEDS: Insulin Glargine,Hum.rec.anlog 100 UNIT/ML 10 ML VIAL 20 UNIT SUBCUT (07:54)
[2024-12-07] MEDS: Insulin Lispro 100 UNIT/ML 3 ML VIAL SUBCUT (07:54)
[2024-12-07] MEDS: glipiZIDE 5 MG TABLET PO (07:55)
[2024-12-07] MEDS: Atorvastatin Calcium 20 MG TABLET PO (07:55)
[2024-12-07] MEDS: Cholecalciferol (Vitamin D3) 25 MCG TABLET 50 MCG PO (07:55)
--- NOTE | 2024-12-07 09:35 | MHC.CM.PN ---
DP: FINAL IMM DELIVERED PT HAS BEEN MEDICALLY CLEARED FOR DC TO STR AT [facility]. BLS TRANSPORT BOOKED FOR 11 AM VIA [facility], [facility] AUTH FOR TRANSPORT OBTAINED. RN UPDATED. CENTER AWARE OF TRANSPORT TIME. PT REQUESTS THIS CM NOTIFY HIS HCP. CALLED PLACED TO SISTER MITCHEL MOREIRA.
[2024-12-07 11:12] VITALS: BP 136/84; PULSE 104; TEMP 36.4; O2SAT 95
== END 2024-12-07 11:26 | disposition skilled nursing facility (03) | DRG 638 ==
LOC: HO.ED 20:06 → HO.EDOVER 20:08 → HO.ICU 20:16 → HO.S3 12-01 14:10
PROVIDERS: Family Medicine; Internal Medicine; Internal Medicine Pulmonary Disease; Admitting Provider Physician Assistant Medical; Emergency Provider Internal Medicine; PCP Internal Medicine; Visit Provider Student in an Organized Health Care Education/Training Program
DX: E10.10 Type 1 diabetes mellitus with ketoacidosis without coma (principal); E87.1 Hypo-osmolality and hyponatremia; G80.1 Spastic diplegic cerebral palsy; S52.501A Unspecified fracture of the lower end of right radius, initial encounter for closed fracture; N17.9 Acute kidney failure, unspecified; T38.3X6A Underdosing of insulin and oral hypoglycemic [antidiabetic] drugs, initial encounter; W19.XXXA Unspecified fall, initial encounter; E86.0 Dehydration; E10.43 Type 1 diabetes mellitus with diabetic autonomic (poly)neuropathy; R53.81 Other malaise; E87.6 Hypokalemia; K31.84 Gastroparesis; E78.5 Hyperlipidemia, unspecified; Z23 Encounter for immunization; Z20.822 Contact with and (suspected) exposure to COVID-19; Z79.4 Long term (current) use of insulin; Z79.899 Other long term (current) drug therapy
CPT/HCPCS: 0241U; 36415; 70450; 71045; 73110; 73200; 80048; 80053; 81001; 82010; 82040; 82803; 82947; 83605; 83690; 83735; 84100; 85025; 87040; 90656; 93005; 97110; 97116; 97162; 97166; 99284; J0613; J0696; J1644; J1885; J2270; J2405; J2765; J3230; J3480

== ENCOUNTER → 2024-11-30 17:10 | Outpatient (BNV) | payer OTHER, SELFPAY | PROVIDERS: Admitting Provider Physician Assistant Medical; Emergency Provider Internal Medicine; PCP Internal Medicine; Visit Provider Internal Medicine Cardiovascular Disease | DX: R00.0 Tachycardia, unspecified (principal) | CPT/HCPCS: 93010 ==

== ENCOUNTER → 2024-11-30 17:25 | Outpatient (BNV) | payer OTHER, SELFPAY | PROVIDERS: Emergency Provider Internal Medicine; PCP Internal Medicine; Visit Provider Radiology Diagnostic Radiology | DX: D72.829 Elevated white blood cell count, unspecified (principal); S52.591A Other fractures of lower end of right radius, initial encounter for closed fracture | CPT/HCPCS: 71045; 73110 ==

== ENCOUNTER → 2024-11-30 19:51 | Outpatient (BNV) | payer OTHER, SELFPAY | PROVIDERS: Admitting Provider Physician Assistant Medical; Emergency Provider Internal Medicine; PCP Internal Medicine; Visit Provider Physician Assistant Medical | DX: E11.10 Type 2 diabetes mellitus with ketoacidosis without coma (principal) | CPT/HCPCS: 99291 ==

== ENCOUNTER → 2024-11-30 19:51 | Outpatient (BNV) | payer OTHER, SELFPAY | PROVIDERS: Admitting Provider Physician Assistant Medical; Emergency Provider Internal Medicine; PCP Internal Medicine; Visit Provider Internal Medicine Pulmonary Disease | DX: E10.10 Type 1 diabetes mellitus with ketoacidosis without coma (principal); S52.501A Unspecified fracture of the lower end of right radius, initial encounter for closed fracture; G80.1 Spastic diplegic cerebral palsy | CPT/HCPCS: 99232 ==

== ENCOUNTER → 2024-11-30 19:51 | Outpatient (BNV) | payer OTHER, SELFPAY | PROVIDERS: Admitting Provider Physician Assistant Medical; Emergency Provider Internal Medicine; PCP Internal Medicine; Visit Provider Internal Medicine | DX: E11.10 Type 2 diabetes mellitus with ketoacidosis without coma (principal); R53.81 Other malaise | CPT/HCPCS: 99231; 99232; 99239; 99499 ==

== ENCOUNTER → 2024-11-30 19:51 | Outpatient (BNV) | payer OTHER, SELFPAY | PROVIDERS: Admitting Provider Physician Assistant Medical; Emergency Provider Internal Medicine; PCP Internal Medicine | DX: S52.501A Unspecified fracture of the lower end of right radius, initial encounter for closed fracture (principal) | CPT/HCPCS: 25600; 99222 ==

== ENCOUNTER 2024-12-14 10:36 | Outpatient (REF) | payer OTHER, SELFPAY ==
--- NOTE | ~2024-12-14 | XR_ITS ---
CLINICAL HISTORY: M25.531 - Pain in right wrist 3 view right wrist Comparison: CR - XR WRIST RT MIN 3V - 11/30/24 17:57 EST Findings: Impacted distal radial fracture. No significant displacement or angulation. Surrounding soft tissue swelling. IMPRESSION: 1. Impacted distal radial fracture. No significant change since the prior CT. This document has been electronically signed by: Paige Michelle MD on 12/15/2024 06:09:04
== END 2024-12-14 10:37 | disposition home or self-care (01) ==
LOC: HO.HOSX 10:36
DX: M25.531 Pain in right wrist (principal); S52.501A Unspecified fracture of the lower end of right radius, initial encounter for closed fracture
CPT/HCPCS: 29075; 73110; 99212

== ENCOUNTER 2024-12-14 11:00 | Outpatient (AMB) | payer OTHER, SELFPAY ==
--- NOTE | 2024-12-14 11:25 | MHC.OFFVIS ---
Vital Signs 12/14/24 11:27 Height 5 ft 4 in Weight 105 lb BMI 18.0 Intake Visit Reasons: FC- RT distal radius fx s/p fall Intake Note: Wilman is a 44 year old right hand dominant male who presents today for a fracture care visit for his minimally displaced right distal radius fracture s/p fall DOI: 11/24/2024. He was admitted to [facility] ICU on 12/01/24 for treatment of diabetic ketoacidosis where he mentioned he was having pain in the right hand. Patient reports he never received treatment for is right wrist because he did not realize he fell. . Patient reports soreness on the dorsal aspect of his right wrist. Patient denies numbness, tingling, or finger locking. Patient states he was given a brace at the ED however he has been on a splint therefore he has not used it yet. Denies prior surgeries to the right hand. Allergies No Known Allergies Allergy (Verified 12/14/24 11:28) HPI HPI FC- RT distal radius fx s/p fall: Details: Wilman is a 44 year old right hand dominant male who presents today for a fracture care visit for his minimally displaced right distal radius fracture s/p fall DOI: 11/24/2024. He was admitted to [facility] ICU on 12/01/24 for treatment of diabetic ketoacidosis where he mentioned he was having pain in the right hand. Patient reports he never received treatment for is right wrist because he did not realize he fell. . Patient reports soreness on the dorsal aspect of his right wrist. Patient denies numbness, tingling, or finger locking. Patient states he was given a brace at the ED however he has been on a splint therefore he has not used it yet. Denies prior surgeries to the right hand. 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 Social History (Updated 12/14/24 @ 11:28 by ANABEL Castelan) Household Members: None Housing: Apartment Do you presently have visiting nurse or other home services: Yes Alcohol intake: former Patient Tobacco Use Status: Never used Tobacco e-Cigarette/Vaping Use: Never Used Second Hand Smoke Exposure: No Substance Use Type: Marijuana service: No Current occupational status: disabled Current occupation: rt handed Cognitive needs: Yes Hearing needs: No Vision needs: Yes Review of Systems Const All systems reviewed & are unremarkable except as noted in HPI and below Physical Exam Vital Signs: BMI result Body Mass Index 18.0 Last Vital Signs Temp 98.5 F 12/01/24 08:00 Pulse 96 12/01/24 08:00 Resp 18 12/01/24 08:00 BP 142/73 H 12/01/24 08:00 Pulse Ox 97 12/01/24 08:00 O2 Del Method Room Air 12/01/24 08:00 BMI result Body Mass Index 18.1 Extrem Other: Patient is alert, oriented, and in no acute distress. Neuro: Normal sensation of the tips of all digits of the right hand at this time Vascular: Cap refill brisk Pain: Patient reports no tenderness to palpation about the right wrist No pain with range of motion of the right hand ROM: Patient is able to flex and extend all digits of the right hand fully and without difficulty Skin: No lacerations or abrasions. General: No ecchymosis, erythema, or evidence of infection. Psych: Appears grossly normal Affect normal Attitude cooperative Office Procedures AMB Fracture Care Details: Right distal radius fracture Fracture Billing Code: Fracture Billing Code Casting/Splints 51175-Zflt/Wrist Cast Application Procedure code (CPT) selection complete Results Reviewed Results Reviewed: X-rays obtained in the office today and independently reviewed by me, Tj Rodriguez PA-C, demonstrate largely nondisplaced fracture of the right distal radius with approximately neutral alignment. Assessment & Plan Assessment & Plan (1) Fracture of right distal radius: Code(s): S52.501A - Unspecified fracture of the lower end of right radius, initial encounter for closed fracture Category: Medical Plan 1. Fracture right distal radius Date of injury unknown, approximately 2 to 3 weeks ago Patient was educated about this injury Patient is educated about the typical recovery course At this time, patient was placed into a short-arm cast Patient was advised on proper cast care and precautions Patient was advised he should continue to avoid any lifting beyond 2 lb for a further 2 weeks Patient was amenable to this plan Patient will follow-up in 2 weeks with x-rays, anticipate cast removal at that time, sooner with any acute concerns Orders: Orders XR wrist RT min 3V Today M25.531 - Pain in right wrist Coding Level of Care Code New Pt Level 3 (54315) Complex EM visit Add On G2211 Diagnoses Fracture of right distal radius S52.501A CPT Codes Fracture Care - Fracture Billing Code: Fracture Billing Code ([id number]) Casting - CPT: 98475-Xybb/Wrist Cast Application ([id number])
[2024-12-14 11:27] VITALS: BMI 18.0
== END 2024-12-14 12:32 | disposition home or self-care (01) ==
PROVIDERS: PCP Internal Medicine
DX: S52.501A Unspecified fracture of the lower end of right radius, initial encounter for closed fracture (principal)
CPT/HCPCS: 29075; 99024

== ENCOUNTER → 2024-12-14 11:10 | Outpatient (BNV) | payer OTHER, SELFPAY | PROVIDERS: Visit Provider Radiology Diagnostic Radiology | DX: S52.591A Other fractures of lower end of right radius, initial encounter for closed fracture (principal) | CPT/HCPCS: 73110 ==

== ENCOUNTER 2024-12-28 12:30 | Outpatient (REF) | payer OTHER, SELFPAY ==
--- NOTE | ~2024-12-28 | XR_ITS ---
CLINICAL HISTORY: M25.531 - Pain in right wrist 3 view right wrist Comparison: DX - XR WRIST RT MIN 3V - 12/14/24 11:10 EST Findings: No change in alignment of distal radial fracture. No significant loss of joint space, osteophyte, or erosions. No radiopaque foreign body. IMPRESSION: Healing distal radial fracture. This document has been electronically signed by: Osman Newman MD on 12/29/2024 15:02:10
--- OUTSIDE RECORDS SUMMARY | 2024-12-28 14:46 | XMS_ITS ---
Author Organization [facility] Address [address] [place] [address] Care Team Providers Care Facilities Technician Name Role Phone Beverley PONCE, Isabell Primary Care Provider Unavail able Jasmyn Claire Unavailable [phone] Narciso Graff Unavailable [phone] Allergies No Known Allergies REASON FOR VISIT [...] 08/10/2024 Encounters Encounter Location Date Provider Diagnosis [facility] [place] [address] [place] [id number] 08/10/2024 Narciso Graff Pain in left foot [...] Provider Name:Jasmyn pelletier, 02/25/2025 09:45:00 AM, [address] [address], [place], [id number], Procedure Notes * Category Sub-Category Detail Notes [...] as necessary. Patient chooses, no pharmaceutical tx (65456) Keratoma Treatment Parring or Cutting o f Benign Hyperkeratotic Lesion(s) 23185 (2-4 Lesions) - The Benign hyperkeratotic lesions, as described above were pared, and/or cut utilizing a sterile #15 blade, tissue nippers, and/or dremel Progress Notes * Brynn HUGGINSOB:1980 (44 yo M)Acc No.[id number]:08/10/2024 Progress Note Patient:?Wilman HUGGINS Provider:?Narciso Graff DPM :1980???Age:44 Y???Sex:Male Camilo e:08/10/2024 Address:[address] [place], [place] [id number] Pcp:Isabell Lowery MD Subjective: * Chief Complaints: [...] 1982, 1989colonscopy 02/24/24 * Hospitalization/Major Diagno stic Procedure:?[facility] High blood sugar 615/2018Food Posion 10/2019[facility]- GI bleed 01/2022[facility]- covid - colitis 04/2023 * Family History:?Mother: [...] ?Interpretation?Negative ???Miscellaneous:?Caffeine: yes, frequency:2 cups per day. ?Children: no. ?Marital status: single. ?Occupation: N/A. * Medications:?TakingOmeprazol e 20 MG Capsule Delayed Release 1 capsule Orally Twice a day Potassium Custom Orthotics as directed Taking Omeprazole 20 MG Capsule Delayed Release 1 capsule Orally Twice a day Taking Potassium Taking Custom Orthotics as directed Not-Taking/PRNExtra Depth Diabetic Shoes with 3 Pair Custom heat-molded multi-density innersoles for 1 year Dx: Custom [...] habitus, and in no acute distress.?ORIENTED:?person,place, and time.?FOOT EXAM:?Neurological: ?SENSORY:? Neurological exam demonstrates, 5.07 monofilament test performed at plantar aspects of 5 varied sites per foot shows sensation, reduced , B/L.?Vascular: ?DP PULSES (B):?2/4, B/L.?PT PULSES (B):?2/4, B/L.?CAPILLARY FILL TIME:?3 secs. per digit. B/L.?TROPHIC CONDITION-TEXTURE/ELASTICITY/TURGOR/HAIR GROWTH (B):?normal, B/L.?TEMPERTURE GRADIENT (C):?normal, B/L.?PIGMENTATION:?normal, B/L.?EDEMA (C):?absent, B/L.?TELANGECTASIA:?absent, B/L.?Dermatologic: ?SKIN FINDINGS:? Skin exam reveals [...] Assessment: 1.?Pain in left foot - M79.6 72???2.?Pain in right foot - M79.671???3.?Pain in right toe(s) - M79.674???4.?Tinea unguium - B35.1 (Primary)???5.?Pain in left toe(s) - M79.675???6.?Type 2 diabetes mellitus with diabetic polyneuropathy - E11.42???7.?Ingrowing nail - L60.0???8.?Metatarsalgia, right foot - M77.41??? Plan: * Treatment: * Procedures:?Debride Nail 6-10:?Nail debridement?Nail debridement performed extensively to reduce/remove overall nail length and girth, subungual debris, and necrotic tissue, by manual and electrical means with use of a nail nipper and/or dremel, to more viable healthy nail plate or bed tissue 6-10. Silver nitrate used for any petechial bleeding as necessary. Patient chooses, no pharmaceutical tx (07886).?Keratoma Treatment:?Parring or Cutting of Benign Hyperkeratotic Lesion(s)?51436 (2-4 Lesions) - The Benign hyperkeratotic lesions, as described above were pared, and/or cut utilizing a sterile #15 blade, tissue nippers, and/or dremel.? * Procedure Codes:?05889 DEBRI DE NAIL, 6 OR MORE, Modifiers: XS 15419 TRIM SKIN LESIONS, 2 TO 4, Modifiers: [...] DPM Date:? 024 Generated for Yobani carroll/Wayne/Sadie on:?12/28/2024 02:46 PM EST History and Physical Notes * [...] hygene/body habitus, and in no acute distress FOOT EXAM: Lower Extremity Neurological Exa m performed:: Yes Visual exam of foot performed:: Yes Date: 08/10/2024 Sensory testing performed:: sensations d iminished Sensory and motor testing performed:: se nsations diminished Pedal pulse taking performed:: 2+ ORIENTED: person,place, and ti me Ophthalmology Referral [...]
--- OUTSIDE RECORDS SUMMARY | 2024-12-28 14:46 | XMS_ITS ---
Author Organization [facility] Address [address] [place] [address] Care Team Providers Care Application Software Engineer Name Role Phone Beverley PONCE, Isabell Primary Care Provider Unavail Jasmyn Sosa Unavailable [phone] Narciso Graff [phone] Encounters Encounter Location Date Provider Diagnosis [address] [address] 07/20/2024 Narciso Graff Plan Of Treatment Next Appt Details Provider Name:Jasmyn pelletier, 02/25/2025 09:45:00 AM, [address] [place] [address], [phone], Progress Notes * BHAVNABrynnOB:1980 (44 yo M)Acc No.[id number]:07/20/2024 Progress Note Patient:?BHAVNASouravy Provider:?Narciso Graff DPM :1980???Age:44 Y???Sex:Male Camilo e:07/20/2024 Address:[address] , [place] Pcp:Isabell Lowery MD Subjective: * Chief Complaints: [...]
--- OUTSIDE RECORDS SUMMARY | 2024-12-28 14:47 | XMS_ITS ---
Author Organization [facility] Address [address] [place] [address] Care Team Providers Care Ground Water Technician Name Role Phone Beverley PONCE, Isabell Primary Care Provider Unavail Jasmyn Sosa Unavailable [phone] Allergies No Known Allergies REASON FOR VISIT [...] Polyneuropathy due to diabetes mellitus type I (104259902) Type 1 diabetes mellitus with diabetic polyneuropathy (E10.42) Active confirmed Vital Signs Height 5ft 7in in 11/09/2024 Weight 117 lbs 11/09/2024 BMI 18.32 kg/m2 11/09/2024 Blood pressure systolic 130 mm Hg 11/09/20 Blood pressure diastolic 70 mm Hg 024 Procedures Procedure Date Ordered Date Performed Result Body Sit e 34610-YVQCTXE NAIL, 6 OR MORE 11/09/2024 N/A 85547-SILN SKIN LESIONS, 2 TO 4 11/09/2024 N/A Encounters Encounter Location Date Provider Diagnosis [facility] [address] [facility] [address] [place] [address] 11/09/2024 Jasmyn Claire Type 2 diabetes mellitus with diabetic polyneuropathy E11.42 and Tinea unguium B35.1 Assessments Encounter Date Diagnosis (ICD Code) Assessment Notes Treatment Notes Treatment Clinical Notes Section Notes 11/09/2024 Type 2 diabetes mellitus with diabetic polyneuropathy (ICD-10 - E11.42) 11/09/2024 Tinea unguium (ICD-10 - B35.1) Plan Of Treatment Pending Test Test Name Order Date 55220-NMCDTBM NAIL, 6 OR MORE 11/09/2024 31419-QNOT SKIN LESIONS, 2 TO 4 11/09/20 24 Next Appt Details Follow Up: 3 Months, Reason: Provider Name:Jasmyn Dunn liayh, 02/25/2025 09:45:00 AM, [address] [facility], [address], [place], [address], Procedure Notes * Category Sub-Category Detail Notes [...] use of a nail nipper and/or dremel-type centerless grinder, to a more viable healthy nail [...] to maintain effectiveness in symptomatic relief - 40394 Keratoma Treatment Parring or Cutting o f [...] instrumentation by the physician of record - 75767 Progress Notes * Brynn HUGGINSOB:1980 (44 yo M)Acc No.[id number]:11/09/2024 Progress Note Patient:Wilman HERNANDEZ Provider:?Jasmyn Claire DPM :1980???Age:44 Y???Sex:Male Camilo e:11/09/2024 Address:[address] [place], [place] [id number] Pcp:Isabell Lowery MD Subjective: * Chief Complaints: [...] 1989colonscopy 02/24/24 * Hospitalization/Major Diagno stic Procedure:[place] [place] blood sugar 615/2018[facility] 10[place] [facility] [facility]- colitis 04/2023 * Family History:?Mother: [...] use of a nail nipper and/or dremel-type centerless grinder, to a more viable healthy nail [...] to maintain effectiveness in symptomatic relief - 22088.?Keratoma Treatment:?Parring or Cutting of Benign Hyperkeratotic Lesion(s)?(-56) [...] instrumentation by the physician of record - 08265.? * Procedure Codes:?85797 DEBRI DE NAIL, 6 OR MORE, Modifiers: XS 36927 TRIM SKIN LESIONS, 2 TO 4, Modifiers: XS * Follow Up:?3 Months * Images: * Sign off status: Completed true * Provider:?Jasmyn Claire DPM Date:?1 Generated for Yobani carroll/Fagorgeg/eTransmitting on:?12/28/2024 02:46 PM EST History and Physical [...]
--- OUTSIDE RECORDS SUMMARY | 2024-12-28 14:47 | XMS_ITS | Patient Health Record ---
Author Organization [facility] Address [address] [place] [address] Care Team Providers Care Housekeeping Room Attendant Name Role Phone Beverley PONCE, Isabell Primary Care Provider Unavail able Jasmyn Claire Unavailable [phone] Narciso Graff Unavailable [phone] Allergies No Known Allergies Results Component Value [...] Polyneuropathy due to diabetes mellitus type I (712826525) Type 1 diabetes mellitus with diabetic polyneuropathy (E10.42) Active confirmed Problem Localized, primary osteoarthritis of the ankle and/or foot (894494616) Primary osteoarthritis, right ankle and foot (M19.071) Active confirmed Problem Localized, primary osteoarthritis of the ankle and/or foot (519015585) Primary osteoarthritis, left ankle and foot (M19.072) Active confirmed Problem Polyneuropathy due to type 2 diabetes mellitus (666841869) Type 2 diabetes mellitus with diabetic polyneuropathy (E11.42) Active confirmed Problem Polyneuropathy due to type 2 diabetes mellitus (566132403) Type 2 diabetes mellitus with diabetic polyneuropathy (E11.42) Active confirmed Vital Signs Blood pressure diastolic 70 mm Hg 11/09/2024 Height 5ft 7in in 11/09/2024 Blood pressure systolic 130 mm Hg 11/09/2024 Weight 117 lbs 11/09/2024 BMI 18.32 kg/m2 11/09/2024 Procedures Procedure Date Ordered Date Performed Result Body Sit e 96715-IVKCFWU NAIL, 6 OR MORE 11/09/2024 N/A 08478-JCTU SKIN LESIONS, 2 TO 4 11/09/2024 N/A Encounters Encounter Location Date Provider Diagnosis [facility] [address] [address] 03/09/2024 Narciso Graff Pain in left foot M79.672 ; Pain in right foot M79.671 ; Pain in right toe(s) M79.674 ; Tinea unguium B35.1 ; Pain in left toe(s) M79.675 ; Type 2 diabetes mellitus with diabetic polyneuropathy E11.42 ; Ingrowing nail L60.0 and Metatarsalgia, right foot M77.41 [facility] [address] [address] 05/18/2024 Narciso Graff Pain in left foot M79.672 ; Pain in right foot M79.671 ; Pain in right toe(s) M79.674 ; Tinea unguium B35.1 ; Pain in left toe(s) M79.675 ; Type 2 diabetes mellitus with diabetic polyneuropathy E11.42 ; Ingrowing nail L60.0 and Metatarsalgia, right foot M77.[address] [facility] [address] [place] [address] 07/13/2024 Narciso Graff Pain in left foot M79.672 ; Pain in right foot M79.671 ; Type 2 diabetes mellitus with diabetic polyneuropathy E11.42 ; Metatarsalgia, right foot M77.41 ; Metatarsalgia, left foot M77.42 and Plantar fascial fibromatosis M72.[address] [facility] [address] [place] [address] 08/10/2024 Narciso Graff Pain in left foot M79.672 ; Pain in right foot M79.671 ; Pain in right toe(s) M79.674 ; Tinea unguium B35.1 ; Pain in left toe(s) M79.675 ; Type 2 diabetes mellitus with diabetic polyneuropathy E11.42 ; Ingrowing nail L60.0 and Metatarsalgia, right foot M77.[address] [facility] [address] [place] [address] 11/09/2024 Jasmyn Claire Type 2 diabetes mellitus with diabetic polyneuropathy E11.42 and Tinea unguium B35.1 [facility] [address] [place] [address] 06/25/2024 Narciso Graff [address] [address] 07/13/2024 Narciso Graff Assessments Encounter Date Diagnosis (ICD Code) Assessment Notes Treatment Notes Treatment Clinical Notes Section Notes 03/09/2024 Pain in left foot (ICD-10 - [...] (ICD-10 - M79.671) 03/09/2024 Pain in right toe(s) (ICD-10 - M79.674) 05/18/2024 Pain in right toe(s) (ICD-10 - M79.674) 07/13/2024 Metatarsalgia, right foot (ICD-10 - M77.41) 08/10/2024 Pain in right toe(s) (ICD-10 - M79.674) 08/10/2024 Tinea unguium (ICD-10 - B35.1) 07/13/2024 Metatarsalgia, left foot (ICD-10 - M77.42) 05/18/2024 Tinea unguium (ICD-10 - B35.1) 03/09/2024 Tinea unguium (ICD-10 - B35.1) 03/09/2024 Pain in left toe(s) (ICD-10 - [...] with diabetic polyneuropathy (ICD-10 - E11.42) 03/09/2024 Ingrowing nail (ICD-10 - L60.0) 05/18/2024 Ingrowing nail (ICD-10 - L60.0) 08/10/2024 Ingrowing nail (ICD-10 - L60.0) 08/10/2024 Metatarsalgia, right foot (ICD-10 - M77.41) 05/18/2024 Metatarsalgia, right foot (ICD-10 - M77.41) 03/09/2024 Metatarsalgia, right foot (ICD-10 - M77.41) Plan Of Treatment Pending Test Test Name Order Date X ray : Foot, right 3V 01/16/2018 53073-VKBKTFX NAIL, 6 OR MORE 11/09/2024 46048-Dbfk Destruction, 1-14 01/16/2018 78547-Jpyz Destruction, 1-14 02/13/2018 72429-Cmco Destruction, 1-14 03/06/2018 27620-Tdyj Destruction, 1-14 05/08/2018 00898-Crpx Destruction, 1-14 07/17/2018 77243-Xwat Destruction, 1-14 09/01/2018 49955-Krpe Destruction, 1-14 11/17/2018 79593-HAHB SKIN LESIONS, 2 TO 4 11/27/19 22 61673-DEFA SKIN LESIONS, 2 TO 4 02/27/20 22 43795-HWHH SKIN LESIONS, 2 TO 4 11/09/20 24 Next Appt Details Provider Name:Jasmyn pelletier, 02/25/2025 09:45:00 AM, [address] [facility], [facility] [address], [place], [address], Insurance Providers Payer Name Payer Address Payer Phone Subscriber Number Group Number Insured Name Patient Relationship to Insured Coverage Start Date Coverage End Date [facility] [employer] Claims [address] [place] [phone] [id number] Wilman Huggins Self - patient is the insured Medical (General) History Medical History History ICD Code Cerebral palsy Chicken pox Depression Diabetic Surgical History Surgery Date(Month/Year) neuroma surgery x4 1982, 1989 colonscopy 02/24/24 Hospitalization History Reason Date(Month/Year) [facility]- [place] [facility] [facility] [facility] 10/2019 [facility] High blood sugar 615/2018
== END 2024-12-28 12:31 | disposition home or self-care (01) ==
LOC: HO.HOSX 12:30
PROVIDERS: PCP Internal Medicine
DX: M25.531 Pain in right wrist (principal); S52.501A Unspecified fracture of the lower end of right radius, initial encounter for closed fracture
CPT/HCPCS: 73110; 99212

== ENCOUNTER 2024-12-28 12:30 | Outpatient (AMB) | payer OTHER, SELFPAY ==
[2024-12-28 14:05] VITALS: BMI 18.0
--- NOTE | 2024-12-28 14:05 | MHC.OFFVIS ---
Vital Signs 12/28/24 14:05 Height 5 ft 4 in Weight 105 lb BMI 18.0 Intake Visit Reasons: OV-RT distal radius fx s/p fall-w/xray cast off Intake Note: Wilman is a 44 year old right hand dominant male who presents today for a follow up visit for his fracture of right distal radius s/p fall DOI: 11/24/2024. At last visit on 12/14/2024 patient was placed in a short arm cast and advised to avoid lifting any heavier than 2 pounds. Cast removed and x-rays updated. Patient reports he is doing well, he has no concerns today. Allergies No Known Allergies Allergy (Verified 12/28/24 14:06) HPI HPI OV-RT distal radius fx s/p fall-w/xray cast off: Details: Wilman is a 44 year old right hand dominant male who presents today for a follow up visit for his fracture of right distal radius s/p fall DOI: 11/24/2024. At last visit on 12/14/2024 patient was placed in a short arm cast and advised to avoid lifting any heavier than 2 pounds. Cast removed and x-rays updated. Patient reports he is doing well, he has no concerns today. Denies numbness or tingling in the right upper extremity. 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 have visiting nurse or other home services: Yes Alcohol intake: former Patient Tobacco Use Status: Never used Tobacco e-Cigarette/Vaping Use: Never Used Second Hand Smoke Exposure: No Substance Use Type: Marijuana service: No Current occupational status: disabled Current occupation: rt handed Cognitive needs: Yes Hearing needs: No Vision needs: Yes Review of Systems Const All systems reviewed & are unremarkable except as noted in HPI and below Physical Exam Vital Signs: BMI result Body Mass Index 18.0 Last Vital Signs Temp 98.5 F 12/01/24 08:00 Pulse 96 12/01/24 08:00 Resp 18 12/01/24 08:00 BP 142/73 H 12/01/24 08:00 Pulse Ox 97 12/01/24 08:00 O2 Del Method Room Air 12/01/24 08:00 BMI result Body Mass Index 18.1 Extrem Other: Patient is alert, oriented, and in no acute distress. Neuro: Normal sensation of the tips of all digits of the right hand at this time Vascular: Cap refill brisk Pain: Patient reports no tenderness to palpation about the right wrist No pain with range of motion of the right hand ROM: Patient is able to flex and extend all digits of the right hand fully and without difficulty Skin: No lacerations or abrasions. General: No ecchymosis, erythema, or evidence of infection. Psych: Appears grossly normal Affect normal Attitude cooperative Results Reviewed Results Reviewed: X-rays obtained in the office today and independently reviewed by me, Tj Rodriguez PA-C, demonstrate largely nondisplaced fracture of the right distal radius with approximately neutral alignment with evidence of interval bony healing. Assessment & Plan Assessment & Plan (1) Fracture of right distal radius: Code(s): S52.501A - Unspecified fracture of the lower end of right radius, initial encounter for closed fracture Category: Medical Plan 1. Fracture right distal radius Date of injury unknown, approximately 2 to 3 weeks ago Patient was educated about this injury Patient is educated about the typical recovery course At this time, patient was placed into a Velcro wrist splint to be worn with daytime activities Patient is educated that once he is resting at home or sleeping, he should remove the splint, as well as for bathing Patient was advised he should continue to avoid any lifting beyond 2 lb for a further 2 weeks Patient was amenable to this plan Patient will follow-up in 4 weeks with x-rays, anticipate cast removal at that time, sooner with any acute concerns Orders: Orders XR wrist RT min 3V Today M25.531 - Pain in right wrist Coding Level of Care Code Global (39451) Diagnoses Fracture of right distal radius S52.501A
== END 2024-12-28 15:42 | disposition home or self-care (01) ==
PROVIDERS: PCP Internal Medicine
DX: S52.501A Unspecified fracture of the lower end of right radius, initial encounter for closed fracture (principal)
CPT/HCPCS: 99024

== ENCOUNTER → 2024-12-28 13:49 | Outpatient (BNV) | payer OTHER, SELFPAY | PROVIDERS: PCP Internal Medicine; Visit Provider Radiology Diagnostic Radiology | DX: S52.591D Other fractures of lower end of right radius, subsequent encounter for closed fracture with routine healing (principal) | CPT/HCPCS: 73110 ==

== ENCOUNTER 2025-01-25 08:20 | Outpatient (REF) | payer OTHER, SELFPAY | END 2025-01-25 08:21 | disposition home or self-care (01) | LOC: HO.HOSX 08:20 | DX: Z13.89 Encounter for screening for other disorder (principal) ==

== ENCOUNTER 2025-03-16 13:18 | Outpatient (AMB) | payer OTHER, SELFPAY ==
--- NOTE | 2025-03-16 13:25 | A.OFFPC_ITS ---
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 Accompanied by: Self / Same As Patient Allergies No Known Allergies Allergy (Verified 03/16/25 14:04) Medication List - Last Reconciled 03/16/25 by Isabell Young MD [ankle wraps As directed] blood sugar diagnostic (FreeStyle Test strips) Use 1 test strip once a day blood-glucose meter (FreeStyle Lite Meter kit) As directed blood-glucose sensor (Medical Referral Source G7 Sensor device) USE DIRECTED, CHANGE SENSOR EVERY 10 DAYS cholecalciferol (vitamin D3) 50 mcg PO DAILY 90 days [crutch tips As directed] [crutch tips As directed] disposable gloves As directed glipizide 5 mg PO DAILY insulin aspart U-100 (Novolog FlexPen U-100 Insulin aspart) 5 units (0.05 mL) subcut TID insulin glargine (Lantus Solostar U-100 Insulin) 20 units (0.2 mL) subcut DAILY metoclopramide HCl 10 mg PO Q6H PRN nut.tx.gluc.intol,lac-free,soy (Glucerna Therapeutic Nutrition oral liquid) 1 ea PO TID omeprazole 40 mg PO BID pen needle, diabetic (BD Ultra-Fine Micro Pen Needle) USE FOR INJECTIONS FOUR TIMES DAILY pyridoxine (vitamin B6) 50 mg PO DAILY 90 days rosuvastatin 5 mg PO DAILY 90 days [wheelchair As directed] Tobacco use date assessed: 03/16/25 Dental Screening Dental Screen Date: 03/16/25 Did you have a dental visit in the last 12 months?: Yes Did you have a dental problem in the last 6 months where you did not have access to dental care?: No Was dental information given to patient?: Patient has dentist HPI HPI Comments History of Present Illness Details The patient is a 45-year-old male presenting for a routine physical examination. He has a history of MINA, manage as type 2, which he manages with Glipizide, NovoLog, and Lantus. The patient mentions a decreased compliance with insulin usage, correlating with his weight loss and increased thirst, a sign of uncontrolled blood glucose levels. Additionally, he expresses frustration regarding the regimen and reports that a nurse assists him with insulin administration. He has an endocrinology appointment soon as per patient. The patient also identifies having cerebral palsy, a condition he was born with, resulting in the necessity of crutches for ambulation. He frequently uses crutch tips, going through as many as 40 pairs per month. He details prior surgical interventions including muscle lengthening of the groin, hamstrings, and quadriceps, as well as foot and tibial surgeries. The patient reports being highly functioning despite his disability, categorizing it as mild in comparison to others with cerebral palsy. The patient notes a history of depression associated primarily with sleep disturbances. He has encountered difficulties related to his weight loss, directly linked to poor blood glucose control. The patient acknowledges a substantial smoking history but ceased tobacco use at the age of 16. He now only smokes marijuana occasionally and has ceased alcohol intake since New ?s day. His family history contributes further insight, detailing incidences of diabetes mellitus and throat cancer among relatives. Specifically, his father passed from throat cancer, and both paternal and maternal sides exhibit diabetes underlines. There is no history of cardiovascular diseases or cerebrovascular accidents mentioned. His mother is described as healthy, having had orthopedic surgeries but no chronic medical conditions like hypertension or diabetes. - Tdap vaccination due; last administere d in 2013. - Last colonoscopy performed in 2023; id entified polyps were removed (polypectomy). - Ensuring diabetic management with focu s on compliance to medication regimen. - Encouraged upcoming diabetes specialis t (endocrinology) appointment. - Advised patient to schedule an eye exa mination concerning diabetic retinopathy; was due but was postponed due to hospitalization. - Planned fasting blood work to be compl eted for ongoing diabetes management. 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 Social History (Updated 03/16/25 @ 14:16 by Isabell Young MD) Household Members: None Housing: Apartment Do you presently have visiting nurse or other home services: Yes Alcohol intake: current Alcohol intake frequency: holidays/special occasions only Alcohol type: beer Patient Tobacco Use Status: Former Tobacco user e-Cigarette/Vaping Use: Never Used Second Hand Smoke Exposure: No Substance Use Type: Marijuana service: No Current occupational status: disabled Current occupation: rt handed Cognitive needs: Yes Hearing needs: No Vision needs: Yes Questionnaire PHQ-9 Over the last 2 weeks, how often have you been bothered by any of the following problems? 1. Little interest or pleasure in doing things: not at all 2. Feeling down, depressed, or hopeless: not at all 3. Trouble falling or staying asleep, or sleeping too much: nearly every day 4. Feeling tired or having little energy: not at all 5. Poor appetite or overeating: not at all 6. Feeling bad about yourself - or that you are a failure or have let yourself or your family down: not at all 7. Trouble concentrating on things, such as reading the newspaper or watching television: not at all 8. Moving or speaking so slowly that other people could have noticed. Or the opposite - being so fidgety or restless that you have been moving around a lot more than usual: not at all 9. Thoughts that you would be better off or of hurting yourself in some way: not at all Total score: 3 Depression Screening Interpretation: Positive Depression Screening Follow-up: Existing condition and Follow-up Visit Requested Depression Screening Done: Yes 77982 - PHQ-9 Billing: Yes Source: Developed by Drs. Jabari Mckeon, Argentina Staton, Ernesto Estrada and colleagues, with an educational joesph from [employer]. Thrive Questionnaire Date Thrive assessed: 03/12/25 I am a: Patient What is your living situation today?: I have a steady place to live Within the past 12 months, did the food you bought not last and you didn't have the money to get more?: I choose not to answer this question Within the past 12 months, did you worry whether your food would run out before you got money to buy more?: I choose not to answer this question Do you have trouble paying for medicines?: No Do you have trouble getting transportation to medical appointments?: No Do you have trouble paying your heating and electricity bill?: I choose not to answer this question Do you have trouble taking care of your child, family member or friend?: I choose not to answer this question Do you have trouble with day-to-day activities such as bathing, preparing meals, shopping, managing finances, etc.?: No Are you currently unemployed and looking for a job?: No Are you interested in more education?: No Please select the resources that you would like help with: None Currently or been in a relationship where the following occur: I choose not to answer THRIVE Score: 0 AUDIT C Alcohol Use Questionnaire (AUDIT-C) 1. How often do you have a drink containing alcohol?: Monthly or less 2. How many drinks containing alcohol do you have on a typical day when you are drinking?: 1 or 2 3. How often do you have six or more drinks on one occasion?: Never Total Score: 1 Score Reviewed/Action Taken: No AUSTYN-7 AMB Questionnaire AUSTYN-7 Date AUSTYN - 7 assessed: 03/16/25 Feeling nervous, anxious, or on edge: 2 = More than half the days Not being able to stop or control worryin = More than half the days Worrying too much about different things: 3 = Nearly every day Trouble relaxin = Not at all Being so restless that it is hard to sit still: 0 = Not at all Becoming easily annoyed or irritable: 2 = More than half the days Feeling afraid as if something awful might happen: 0 = Not at all Total AUSTYN-7 score (0-4 normal; 5-9 mild; 10-14 moderate; 15-21 severe): 9 Source: Developed by Drs. Jabari Mckeon, Argentina Staton, Ernesto Estrada and colleagues, with an educational joesph from [employer]. AUSTYN-7 Assessment Billing AUSTYN-7 Assessment Tool: AUSTYN-7 Assessment 61745 Review of Systems Const All systems reviewed & are unremarkable except as noted in HPI and below Card Denies chest pain at rest, Denies chest pain with activity, Denies edema, Denies irregular heart rhythm, Denies claudication, Denies dyspnea, Denies dyspnea on exertion, Denies orthopnea, Denies paroxysmal nocturnal dyspnea and Denies slow heart rate Resp Denies cough, Denies dyspnea and Denies dyspnea on exertion GI Denies abdominal pain, Denies change in bowel habits, Denies excessive flatus, Denies nausea and Denies vomiting Denies urinary hesitancy, Denies urinary incontinence and Denies urinary urgency Musc Denies abnormal gait, Denies atrophy, Denies deformity and Denies limited range of motion Skin/Breast Denies bleeding lesions, Denies changing lesions and Denies rash Neuro Denies abnormal gait, Denies behavioral changes and Denies lack of coordination Psych Denies behavioral changes Physical exam (Primary Care) Vital Signs: Last Vital Signs BP 118/76 03/16/25 13:42 BMI result Body Mass Index 17.0 BMI Assessment/Plan discussion: Low BMI Low, Plan discussed: lifestyle, increase calorie intake and dietary Tobacco/Smoking Status: Tobacco use Status Tobacco use date assessed 03/16/25 03/16/25 13:47 Patient Tobacco Use Status Former Tobacco user 03/16/25 14:16 Tobacco use type 05/07/24 14:09 e-Cigarette/Vaping Use Never Used 03/16/25 14:16 PHQ-9: PHQ-9 Score PHQ-9: Total score 3 03/16/25 14:07 Depression Screening Interpretation: Positive Depression Screening Follow-up: Existing condition and Follow-up Visit Requested Thrive Assessment: Date of Thrive Assessment Date Thrive assessed 03/12/25 03/16/25 13:27 Currently or been in a relationship where the following occur: I choose not to answer Const Limitations: crutches HENJESSICA Head: Yes normal to inspection, Yes normocephalic and Yes atraumatic Ears: external ears normal Eyes General: appearance normal, both eyes and all related structures Eyelids: Yes eyelids normal Conjunctivae: conjunctivae normal Neck Neck: Yes normal visual inspection and Yes supple Resp Effort & Inspection: normal respiratory effort Auscultation: clear to auscultation bilaterally Cardio Jugular venous distension: no JVD Rate: regular rate Rhythm: regular rhythm Heart sounds: S1 normal heart sound present and S2 normal heart sound present GI Inspection: Yes normal to inspection Palpation (GI): Soft to palpation and nontender Auscultation: normal bowel sounds Skin General skin exam: no rashes or lesions noted Neuro General: no focal motor deficits Psych Appearance: grossly normal Results AMB Hemoglobin A1c AMB Hemoglobin A1c 14.0 % Last Edit by ANABEL Santiago on 03/16/25 13: 54 Immunizations Boostrix Tdap 2.5 Lf unit-8 mcg-5 Lf/0.5 mL intramuscular syringe Performing Provider: Isabell Young MD [facility] Administered by: ANABEL Santiago on 03/16/25 14:33 Dose Route Admin Location Dispensed Lot Number Expiration Date NDC [employer] Supervisor 0.5 mL IM Right Deltoid 0.5 mL [id number] 07/05/27 [id number] Nexavis VIS Given Date VIS Provided VIS Publication Date 03/16/25 Single Vaccine 24 Eligibility Eligibility Date Funding Source Not [facility] Eligible 03/16/25 Private Results Reviewed Results Reviewed: Laboratory Last Values Hgb A1c (Clinic) 14.0 % (4.0-6.0) H 03/16/25 13:47 Coding Level of Care Code Complex EM visit Add On G2211 Diagnoses Physical exam Z00.00 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 Mild depression F32.0 Additional Codes PHQ-9 - 38030 - PHQ-9 Billing: Yes ([id number]) AUSTYN-7 Assessment Billing - AUSTYN-7 Assessment Tool: AUSTYN-7 Assessment 77700 ([id number]) Time Spent (min) 32 Assessment & Plan Assessment & Plan (1) Physical exam: Code(s): Z00.00 - Encounter for general adult medical examination without abnormal findings Category: Medical (2) MINA (latent autoimmune diabetes mellitus in adults): Code(s): E13.9 - Other specified diabetes mellitus without complications Category: Medical (3) 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 Arrangements for comprehensive diabetes management were discussed, recognizing the impact on the patient?s weight and thirst symptoms. The ongoing need for clutches and frequent crutch tips due to cerebral palsy was addressed and supported by insurance coverage. The importance of maintaining timely health screenings, revisiting the specialist for postponed eye examination, and addressing mental health, particularly depression and possible sleep disturbance, were highlighted. Discussion regarding comprehensive health maintenance, including vaccination up dates, was integral to the visit. Patient was informed and verbally consented to the use of an ambient scribe for clinic note documentation during this visit. I discussed the patient's current diabetic management and emphasized the importance of compliance with insulin therapy to manage blood glucose levels effectively, reducing potential complications like weight loss and increased thirst. We reviewed the importance of regular endocrinology appointments to tailor individual care and address potential noncompliance. Discussions extended to the management of cerebral palsy and provisions of crutches and tips through insurance, and the necessity for functional aids was recognized. We reviewed past surgical interventions and the need for ongoing care regarding his past wrist fracture. I emphasized maintaining scheduled eye examinations for diabetic retinopathy screening. Vaccination updates, such as the Tdap booster, were discussed to ensure comprehensive preventative health maintenance. Patient education was reinforced regarding hypertension, atherosclerotic risk reduction, and lifestyle choices, including cessation from tobacco and alcohol use. Orders: Orders Lipid Panel Today E78.5 - Hyperlipidemia, unspecified Microalbumin, Random (w Creat) Today R80.9 - Proteinuria, unspecified Vitamin D 25-OH Total Today E55.9 - Vitamin D deficiency, unspecified Comprehensive [place]. Panel Fast Today E13.9 - Other specified diabetes mellitus without complications TDaP Immunization Today Z23 - Encounter for immunization AMB Hemoglobin A1c Today E11.43 - Type 2 diabetes mellitus with diabetic autonomic (poly)neuropathy Medications: Refilled [crutch tips] As directed 40 ea 11RF G80.1 - Spastic diplegic cerebral palsy [ankle wraps] As directed 1 ea 1RF G80.1 - Spastic diplegic cerebral palsy Patient Instructions: - Continue insulin therapy as prescribed and contact nurse for guidance if necessary. - Schedule an endocrinology appointment and maintain follow-up. - Arrange fasting blood work at convenience. - Set an appointment for an overdue eye examination. - Use crutch tips as needed, ensure to order them through insurance. - Update vaccinations, get Tdap booster scheduled. - Monitor mental health closely, consider counseling or therapy for depression. - Follow doctor?s exercise recommendations and maintain a balanced diet to prevent further weight loss. - Report any significant changes in health or symptoms promptly.
[2025-03-16 13:42] VITALS: BP 118/76; BMI 17.0
--- OUTSIDE RECORDS SUMMARY | 2025-03-16 14:34 | XMS_ITS ---
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 Lead Java Developer Architect Name Role Phone Beverley PONCE, Isabell Primary Care Provider Unavail able Jasmyn Claire Unavailable [phone] Narciso Graff Unavailable [phone] Allergies No Known Allergies REASON FOR VISIT [...] 08/10/2024 Encounters Encounter Location Date Provider Diagnosis [facility] [place] [address] [place] [id number] 08/10/2024 Narciso Graff Pain in left foot [...] Up: 3 Months, Reason: Provider Name:Jasmyn pelletier, 05/31/2025 09:15:00 AM, [address] [address], [place], [id number], Procedure Notes * Category Sub-Category Detail Notes [...] as necessary. Patient chooses, no pharmaceutical tx (17682) Keratoma Treatment Parring or Cutting o f Benign Hyperkeratotic Lesion(s) 04413 (2-4 Lesions) - The Benign hyperkeratotic lesions, as described above were pared, and/or cut utilizing a sterile #15 blade, tissue nippers, and/or dremel Progress Notes * Brynn HUGGINSOB:1980 (44 yo M)Acc No.[id number]:08/10/2024 Progress Note Patient:?Wilman HUGGINS Provider:?Narciso Graff DPM :1980???Age:44 Y???Sex:Male Camilo e:08/10/2024 Address:[address] [place], [place] [id number] Pcp:Isabell Lowery MD Subjective: * Chief Complaints: [...] 1982, 1989colonscopy 02/24/24 * Hospitalization/Major Diagno stic Procedure:?[facility] High blood sugar 615/2018Food Posion 10/2019[facility] GI bleed 01/2022[facility] covid - colitis 04/2023 * Family History:?Mother: [...] offload pressure Not-Taking/PRN Trulicity 0.75 MG/0.5ML Solution Pen-injector as directed [...] and in no acute distress.?ORIENTED:?person,place, and time.?FOOT EXAM:?Lower Extremity Neurological Exam performed:?Yes ?Visual exam of foot performed:?Yes ?Date?08/10/2024 ?Sensory testing performed:?sensations diminished ?Sensory and motor testing performed:?sensations diminished ?Pedal pulse taking performed:?2+?Neurological: ?SENSORY:? Neurological exam demonstrates, 5.07 monofilament test [...] structure, B/L.?FOOTWEAR:? worn, nonsupportive.?Ophthalmology Referral: ?DIABETES EYE EXAM?Diabetic Retinopathy Screening:?Yes?Nails: ?NAILS are:?Elongated, overgrown, dystrophic, lytic, greater than [...] as necessary. Patient chooses, no pharmaceutical tx (84090).?Keratoma Treatment:?Parring or Cutting of Benign Hyperkeratotic Lesion(s)?72253 (2-4 Lesions) - The Benign hyperkeratotic lesions, as described above were pared, and/or cut utilizing a sterile #15 blade, tissue nippers, and/or dremel.? * Procedure Codes:?02588 DEBRI DE NAIL, 6 OR MORE, Modifiers: XS 02173 TRIM SKIN LESIONS, 2 TO 4, Modifiers: [...] Provider:?Narciso Graff DPM Date:? 024 Generated for Printi ng/Faxing/eTransmitting on:?03/16/2025 02:34 PM EDT History and Physical Notes * HPI (History [...] FOOT MORPHOLOGY: Pes Planus structure, B/ L FOOTWEAR EVALUATION: worn, nonsupportive General Examination GENERAL APPEARANCE: pleasant [...]
--- OUTSIDE RECORDS SUMMARY | 2025-03-16 14:34 | XMS_ITS | Patient Health Record ---
Author Organization [facility] Formerly [facility] Address [address] [place] [address] Care Team Providers Care Academy Education Director Name Role Phone Beverley PONCE, Isabell Primary Care Provider Unavail able Jasmyn Claire Unavailable [phone] Narciso Graff Unavailable [phone] Allergies No Known Allergies Results Component Value Reference Range Notes HEMOGLOBIN A1C (GLYCOHEMOGLO BIN) Reviewed date:08/10/2024 12:51:59 PM Interpretation: Performing Lab: Notes/Report: TOTAL HEMOGLOBIN (HGBA1C) 7 HEMOGLOBIN A1C (GLYCOHEMOGLO BIN) Reviewed date:02/25/2025 09:42:20 AM Interpretation: Performing Lab: Notes/Report: HEMOGLOBIN A1C % (HH) 7.0 Reason For Referral No Information Medications Medication SIG (Take, Route, Frequency, Duration) Notes Start Date End Date Status Pioglitazone HCl Not -Taking Extra Depth Diabetic Shoes with 3 Pair Custom heat-molded multi-density innersoles for 1 year Dx: 06/05/2021 N ot-Taking Januvia Not-Taking Omeprazole 20 MG 1 capsule Orally Twi ce a day Active Custom Orthotics as directed A ctive Extra Depth Diabetic Shoes with 3 Pair Custom heat-molded multi-density innersoles for 1 year Dx: N ot-Taking Potassium Active Trulicity 0.75 MG/0.5ML as directed Subcutaneous Not-Taking Custom Orthotics as directed one pair and accomodate painful right 2nd mtpj to offload pressure Not-Taking Orthopedic Extra Depth Shoes With Custom Heat [...] stop date) Never Smoker NA - NA Alcohol Screen Question Answer Notes Did you have a drink containing alcohol in the p ast year? No Points 0 Interpretation Negative Tobacco use other than smoking: Question Answer Notes Are you an other tobacco user? No Tobacco Control (Standard) Question Answer Notes Tobacco use: Nonsmoker Additional Findings: Tobacco non-user Current no nsmoker Problems Problem Type SNOMED Code ICD Code Onset Dates Problem Status W/U Status Risk Notes Problem Type 2 diabetes mellitus with diabetic polyneuropathy (E11.42) Active confirmed Vital Signs Blood pressure diastolic 70 mm Hg 11/09/2024 Height 5ft 7in in 02/25/2025 Blood pressure systolic 130 mm Hg 11/09/2024 Weight 117 lbs 02/25/2025 BMI 18.32 kg/m2 02/25/2025 Procedures Procedure Date Ordered Date Performed Result Body Sit e 87344-USUOHRD NAIL, 6 OR MORE 11/09/2024 N/A 34798-XTER SKIN LESIONS, 2 TO 4 11/09/2024 N/A 03530-EGLFVMH NAIL, 6 OR MORE 02/25/2025 N/A Encounters Encounter Location Date Provider Diagnosis [facility] [address] 05/18/2024 Narciso Graff Pain in left foot M79.672 ; Pain in right foot M79.671 ; Pain in right toe(s) M79.674 ; Tinea unguium B35.1 ; Pain in left toe(s) M79.675 ; Type 2 diabetes mellitus with diabetic polyneuropathy E11.42 ; Ingrowing nail L60.0 and Metatarsalgia, right foot M77.[address] [facility] [address] 07/13/2024 Narciso Graff Pain in left foot M79.672 ; Pain in right foot M79.671 ; Type 2 diabetes mellitus with diabetic polyneuropathy E11.42 ; Metatarsalgia, right foot M77.41 ; Metatarsalgia, left foot M77.42 and Plantar fascial fibromatosis M72.[address] [address] 08/10/2024 Narciso Graff Pain in left foot M79.672 ; Pain in right foot M79.671 ; Pain in right toe(s) M79.674 ; Tinea unguium B35.1 ; Pain in left toe(s) M79.675 ; Type 2 diabetes mellitus with diabetic polyneuropathy E11.42 ; Ingrowing nail L60.0 and Metatarsalgia, right foot M77.[address] [address] 11/09/2024 Jasmyn Claire Type 2 diabetes mellitus with diabetic polyneuropathy E11.42 and Tinea unguium B35.[address] [address] 02/25/2025 Jasmyn Claire Type 2 diabetes mellitus with diabetic polyneuropathy E11.42 ; Tinea unguium B35.1 ; Pain in right toe(s) M79.674 and Other hammer toe(s) (acquired), right foot M20.[address] [address] 06/25/2024 Narciso Graff [address] [address] 07/13/2024 Narciso Graff Assessments Encounter Date Diagnosis (ICD Code) Assessment Notes Treatment Notes Treatment Clinical Notes Section Notes 05/18/2024 Pain in left foot (ICD-10 - M79.672) 07/13/2024 Pain in right foot (ICD-10 - M79.671) 07/13/2024 Pain in left foot (ICD-10 - M79.672) 08/10/2024 Pain in left foot (ICD-10 - M79.672) 11/09/2024 Type 2 diabetes mellitus with diabetic polyneuropathy (ICD-10 - E11.42) 11/09/2024 Tinea unguium (ICD-10 - B35.1) 02/25/2025 Type 2 diabetes mellitus with diabetic polyneuropathy (ICD-10 - E11.42) 02/25/2025 Tinea unguium (ICD-10 - B35.1) 02/25/2025 Pain in right toe(s) (ICD-10 - M79.674) 08/10/2024 Pain in right foot (ICD-10 - M79.671) 07/13/2024 Type 2 diabetes mellitus with diabetic polyneuropathy (ICD-10 - E11.42) 05/18/2024 Pain in right foot (ICD-10 - M79.671) 05/18/2024 Pain in right toe(s) (ICD-10 - M79.674) 07/13/2024 Metatarsalgia, right foot (ICD-10 - M77.41) 08/10/2024 Pain in right toe(s) (ICD-10 - M79.674) 02/25/2025 Other hammer toe(s) (acquired), right foot (ICD-10 - M20.41) 08/10/2024 Tinea unguium (ICD-10 - B35.1) 07/13/2024 Metatarsalgia, left foot (ICD-10 - M77.42) 05/18/2024 Tinea unguium (ICD-10 - B35.1) 05/18/2024 Pain in left toe(s) (ICD-10 - M79.675) 07/13/2024 Plantar fascial fibromatosis (ICD-10 - M72.2) 08/10/2024 Pain in left toe(s) (ICD-10 - M79.675) 08/10/2024 Type 2 diabetes mellitus with diabetic polyneuropathy (ICD-10 - E11.42) 05/18/2024 Type 2 diabetes mellitus with diabetic polyneuropathy (ICD-10 - E11.42) 05/18/2024 Ingrowing nail (ICD-10 - L60.0) 08/10/2024 Ingrowing nail (ICD-10 - L60.0) 08/10/2024 Metatarsalgia, right foot (ICD-10 - M77.41) 05/18/2024 Metatarsalgia, right foot (ICD-10 - M77.41) Plan Of Treatment Pending Test Test Name Order Date X ray : Foot, right 3V 01/16/2018 84404-XZKDFPW NAIL, 6 OR MORE 11/09/2024 36385-BBQACWS NAIL, 6 OR MORE 02/25/2025 46980-Ogab Destruction, 1-14 01/16/2018 28997-Uqie Destruction, -14 02/13/2018 38779-Vivt Destruction, 1-14 03/06/2018 71314-Jubz Destruction, 1-14 05/08/2018 41110-Sjvf Destruction, 1-14 07/17/2018 30906-Tdvq Destruction, -14 09/01/2018 99565-Hwws Destruction, -14 11/17/2018 31094-KLXZ SKIN LESIONS, 2 TO 4 11/27/19 71864-DSVP SKIN LESIONS, 2 TO 4 02/27/20 38182-LZIN SKIN LESIONS, 2 TO 4 11/09/20 Next Appt Details Provider Name:Jasmyn Dunn liyah, 05/31/2025 09:15:00 AM, [address] [facility], [facility] [address], [place], [address], Insurance Providers Payer Name Payer Address Payer Phone Subscriber Number Group Number Insured Name Patient Relationship to Insured Coverage Start Date Coverage End Date [facility] [employer] Claims [address] [place] [id number] Wilman Huggins Self - patient is the insured Medical (General) History Medical History History ICD Code Cerebral palsy Chicken pox Depression Diabetic Surgical History Surgery Date(Month/Year) neuroma surgery x4 1989 colonscopy 02/24/24 Hospitalization History Reason Date(Month/Year) [facility]- fractured right wrist 11/2024 [facility]- colitis 04/2023 [facility]- covid 09/2022 [facility]- GI bleed 01/2022 Food Posion 10/2019 [facility] ER High blood sugar 6103/2018
--- OUTSIDE RECORDS SUMMARY | 2025-03-16 14:34 | XMS_ITS ---
Author Organization [facility] Address [address] [place] [address] Care Team Providers Care Wind Turbine Design Engineer Name Role Phone Beverley PONCE, Isabell Primary Care Provider Unavail Jasmyn Sosa Unavailable [phone] Allergies No Known Allergies REASON FOR VISIT [...] No Vital Signs Height 5ft 7in in 11/09/2024 Weight 117 lbs 11/09/2024 BMI 18.32 kg/m2 11/09/2024 Blood pressure systolic 130 mm Hg 11/09/20 Blood pressure diastolic 70 mm Hg 024 Procedures Procedure Date Ordered Date Performed Result Body Sit e 61562-VDPTRWH NAIL, 6 OR MORE 11/09/2024 N/A 60852-TSJM SKIN LESIONS, 2 TO 4 11/09/2024 N/A Encounters Encounter Location Date Provider Diagnosis [facility] [address] [address] 11/09/2024 Jasmyn Claire Type 2 diabetes mellitus with diabetic polyneuropathy E11.42 and Tinea unguium B35.1 Assessments Encounter Date Diagnosis (ICD Code) Assessment Notes Treatment Notes Treatment Clinical Notes Section Notes 11/09/2024 Type 2 diabetes mellitus with diabetic polyneuropathy (ICD-10 - E11.42) 11/09/2024 Tinea unguium (ICD-10 - B35.1) Plan Of Treatment Pending Test Test Name Order Date 32882-QGCHKFX NAIL, 6 OR MORE 11/09/2024 89295-WBYW SKIN LESIONS, 2 TO 4 11/09/20 24 Next Appt Details Follow Up: 3 Months, Reason: Provider Name:Jasmyn pelletier, 05/31/2025 09:15:00 AM, [address] [facility], [address] [facility], [place], [address], Procedure Notes * Category Sub-Category Detail Notes [...] use of a nail nipper and/or dremel-type grinder and honer operator automatic, to a more viable healthy nail plate [...] to maintain effectiveness in symptomatic relief - 80642 Keratoma Treatment Parring or Cutting o f [...] instrumentation by the physician of record - 24249 Progress Notes * Brynn HUGGINSOB:1980 (44 yo M)Acc No.[id number]:11/09/2024 Progress Note Patient:?MIKE, Wilman Provider:?Jasmyn Claire DPM :1980???Age:44 Y???Sex:Male Camilo e:11/09/2024 Address:[address] [place], [place] [id number] Pcp:Isabell Lowery MD Subjective: * Chief Complaints: [...] 1982, 1989colonscopy 02/24/24 * Hospitalization/Major Diagno stic Procedure:?[facility] High blood sugar 615/2018Food Posion 10/2019[facility] [place] bleed 01/2022[facility] [place] - colitis 04/2023 * Family History:?Mother: [...] reviewed and reconciled with the patient * Allergies:?N.K.D.A.yes[Ramana thornton Verified] Objective: * Vitals:?Ht:5ft 7in, Wt:117, BMI:18.32, Shoe size:8.5, BP:130/70mm Hg, BS:not taken, Ht-cm: 170.18 cm, Wt-k.07 kg. * ???Past Orders: ???Lab:HEMOGLOBIN A1C (GLYCO HEMOGLOBIN) (Order Date - 08/10/2024) (Collection Date & Time - 08/10/2024 12:51 PM) ? Value Reference Range ?TOTAL HEMOGLOBIN (HGBA1C) 7 * Examination: ???Ophthalmology Referral: ?DIABETES EYE EXAM?Procedure Performed:?No ?Findings of Diabetic Eye Exam:?no retinopathy?Neurological: ?SENSORY:? Neurological exam demonstrates, reduced light touch [...] use of a nail nipper and/or dremel-type grinder and honer operator automatic, to a more viable healthy nail plate [...] to maintain effectiveness in symptomatic relief - 80172.?Keratoma Treatment:?Parring or Cutting of Benign Hyperkeratotic Lesion(s)?(-56) [...] instrumentation by the physician of record - 80352.? * Procedure Codes:?54291 DEBRI DE NAIL, 6 OR MORE, Modifiers: XS 65739 TRIM SKIN LESIONS, 2 TO 4, Modifiers: XS * Follow Up:?3 Months * Images: * Sign off status: Completed true * Provider:Melissa Claire DPM Date:?1 Generated for Printi ng/Faxing/eTransmitting on:?03/16/2025 02:34 PM [...]
--- OUTSIDE RECORDS SUMMARY | 2025-03-16 14:34 | XMS_ITS ---
Author Organization [facility] Address [address] [place] [address] Care Team Providers Care Emergency Department Director Name Role Phone Beverley PONCE, Isabell Primary Care Provider Unavail Jasmyn Sosa Unavailable [phone] Allergies No Known Allergies REASON FOR VISIT At Risk Footcare, Painful Toe(s) Medications Medication SIG (Take, Route, Frequency, Duration) Notes Start Date End Date Status Januvia Not-Taking Omeprazole 20 MG 1 capsule Orally Twi ce a day Active Custom Orthotics as directed A ctive Extra Depth Diabetic Shoes with 3 Pair Custom heat-molded multi-density innersoles for 1 year Dx: N ot-Taking Potassium Active Pioglitazone HCl Not -Taking Extra Depth Diabetic Shoes with 3 Pair Custom heat-molded multi-density innersoles for 1 year Dx: 06/05/2021 N ot-Taking Trulicity 0.75 MG/0.5ML as directed Subcutaneous Not-Taking Orthopedic Extra Depth Shoes With Custom [...] Additional Findings: Tobacco non-user Current no nsmoker Vital Signs Height 5ft 7in in 02/25/2025 Weight 117 lbs 02/25/2025 BMI 18.32 kg/m2 02/25/2025 Procedures Procedure Date Ordered Date Performed Result Body Sit e 47114-SAGLYGF NAIL, 6 OR MORE 02/25/2025 N/A Encounters Encounter Location Date Provider Diagnosis [facility] [address] [place] [address] 02/25/2025 Jasmyn Claire Type 2 diabetes mellitus with diabetic polyneuropathy E11.42 ; Tinea unguium B35.1 ; Pain in right toe(s) M79.674 and Other hammer toe(s) (acquired), right foot M20.41 Assessments Encounter Date Diagnosis (ICD Code) Assessment Notes Treatment Notes Treatment Clinical Notes Section Notes 02/25/2025 Type 2 diabetes mellitus with diabetic polyneuropathy (ICD-10 - E11.42) 02/25/2025 Tinea unguium (ICD-10 - B35.1) 02/25/2025 Pain in right toe(s) (ICD-10 - M79.674) 02/25/2025 Other hammer toe(s) (acquired), right foot (ICD-10 - M20.41) Plan Of Treatment Pending Test Test Name Order Date 58718-TYTMZDR NAIL, 6 OR MORE 02/25/2025 Next Appt Details Follow Up: 3 Months, Reason: Provider Name:Jasmyn Dunn liyah, 05/31/2025 09:15:00 AM, [address] [address], [place], [address], Procedure Notes * Category Sub-Category Detail Notes [...] use of a nail nipper and/or dremel-type bench grinder, to a more viable healthy nail [...] to maintain effectiveness in symptomatic relief - 15701 Keratoma Treatment Parring or Cutting o f [...] instrumentation by the physician of record - 27396 Progress Notes * Brynn HUGGINSOB:1980 (45 yo M)Acc No.[id number]:02/25/2025 Progress Note Patient:?Wilman HUGGINS Provider:?Jasmyn Claire DPM :1980???Age:45 Y???Sex:Male Camilo e:02/25/2025 Address:[address] [place], [place] [id number] Pcp:Isabell Lowery MD Subjective: * Chief Complaints: * ???At Risk FootcarePainful T oe(s) * HPI: ???At Risk footcare:?Pt States Last PCP Visit:?Date?02/04/2025 ???Toe pain:?Nature:?tenderness.?Location:?Right foot.?Duration:?several years.?Course:?worse.?Aggravated by:?any pressure, shoes.?Treatments:?rest/alter normal daily activity, change in shoes.? * ROS:?General/Constitutional:?Nausea?denies.?Vomiting?denies.?Hunger Thirst?denies.?Loss appetite?denies.?Chills?denies.?Fatigue?denies.?Fever?denies.?Night Sweats?denies.?Unexplained weight loss?denies.?Unexplained [...] 1982, 1989colonscopy 02/24/24 * Hospitalization/Major Diagno stic Procedure:?[facility] High blood sugar 615/2018Food Posion 10/2019[facility] [place] 01/2022[facility]- colitis 04/2023[facility] fractured right wrist 11/2024 * Family History:?Mother: anali marsh?Father: , diagnosed with Other malignant neoplasm of unspecified site.? * Social History:?Tobacco Use:?Tobacco use other than smoking?Are you an other tobacco user??No ?Tobacco Control (Standard)?Tobacco use:?Nonsmoker ?Additional Findings: Tobacco non-user?Current nonsmoker ???Drugs/Alcohol:?Drugs?Have you used drugs other than those [...] 7in, Wt:117, BMI:18.32, Shoe size: 8.5, BS: did not test, Ht-cm: 170.18 cm, Wt-k.07 kg. * ???Past Orders: ???Lab:HEMOGLOBIN A1C (GLYCO HEMOGLOBIN) (Order Date - 08/11/2024) (Collection Date & Time - 08/12/2024 09:41 AM) ? Value Reference Range ?HEMOGLOBIN A1C % (HH) 7.0 * Examination: ???Ophthalmology Referral: ?DIABETES EYE EXAM?Procedure [...] STRENGTH:?5/5 all groups in a symmetrical fashion, B/L.?DIGITAL DEFORMITIES:?Adducto-varus deformity noted T9, Reveals bulbous distal digit with inflammation and Pain on Palpation.?General Examination: ?GENERAL APPEARANCE:?Reveals a pleasant, alert, well nourished, well- developed, well hydrated individual, who demonstrates proper attention to hygiene/body habitus, and is in no acute distress, Pt serves as own historian for office visit today.?ORIENTED:?person, place, and time.? Assessment: * Assessment: 1.?Type 2 diabetes mellitus with diabetic polyneuropathy - E11.42 (Primary)???2.?Tinea unguium - B35.1???3.?Pain in right toe(s) - M79.674???4.?Other hammer toe(s) (acquired), right foot - M20.41???Specify :Chronic problem, Worse (4)??? Plan: * Treatment: * Procedures:?Debride Nail 6-10:?Nail [...] use of a nail nipper and/or dremel-type bench grinder, to a more viable healthy nail [...] to maintain effectiveness in symptomatic relief - 14732.?Keratoma Treatment:?Parring or Cutting of Benign Hyperkeratotic Lesion(s)?(-56) [...] instrumentation by the physician of record - 81066.? * Procedure Codes:?71360 DEBRI DE NAIL, 6 OR MORE, Modifiers: XS 32203 TRIM SKIN LESIONS, 2 TO 4, Modifiers: [...] have encouraged the patient to call the office.?Digital Surgery:?Digital surgery was discussed with the patient, including the risks of surgery(below), vs not having surgery (persistent pain, deformity, risk for skin ulceration/infection, loss of toe), the potential surg complications, the anesthesia, and the usual post-op course. No guarentees were given. We discussed the potential procedure complications including, but not limited to: pain, swelling, bleeding, scarring, numbness, infection, delayed/non healing, floppy/unstable/shorthened toe, recurrence, failure of the procedure, overcorrection leading to plantarflexed/downward positioned toe, recurrence, need for further surgery, as well as the possibility for loss of the toe itself. We discussed the use of local anesthesia, and the usual post-op course for healing. No guarentees were given. The patient verbally indicated a full understanding of the above conversation, and any other of their questions were answered to their satisfaction. Alternatives to the procedure were also discussed, including conservative care. I also discussed the usual post-operative course and gave no guarantees regarding outcome.?Digital Treatment:?HT- I explained to the patient the possible etiologies of Hammertoes, including genetics/foot type/shoegear/activity level/exercise routine and the risks/benefits of all the different treatment options for their pain including: No treatment at all, Rest, Ice, New/supportive/wider/deeper Shoe gear, Digital Padding/Strapping/Taping/Bracing/Gel protective sleeves, Foot/Ankle AFO Bracing, Stretching exercises, Deep Tissue Massage, Arch support/shoe inserts with splay metatarsal padding, and Custom orthoses. I insisted that any digital devices be removed daily and not worn overnight for safety. The patient is to carefully examine the toes daily for any skin irritation while using any splinting or padding device. The advantages and disadvantages of each option were discussed and the patients questions re: shoe gear, padding, custom vs prefabricated inserts, activity level, and consistency in home treatment regimens for optimal success were answered to their verbally confirmed satisfaction. Toe ronald dispensed to patient, patient instructed on use.?Shoe Gear Counseling:?The patient and I reviewed the types of shoes they should be wearing. My recommendation included obtaining a well-fitted shoe with a good supportive, non-foldable nor twistable sole, plenty of toe/room for the forefoot, and proper arch support. Based on todays examination, I recommended the patient look for new shoes, by having their feet professionally measured. We discussed that generally the best time of the day for a shoe fitting is the afternoon. Different shoes types and brands to best match the patients occupation and vocation were discussed. Specific brand selection will be up to the patient, their individual foot condition/deformities, and fit. The patient and I reviewed the standard new shoe break in period by wearing them for a few hours a day while checking for redness or sores as wear time is increased. The patient verbally confirmed to understanding the information discussed.? ??Screening/Special Tests:?Fall Risk?Screening:?No falls in the past year ?FALLS: Screening for Future Fall Risk?Have you had any falls with injury in the past year??No * Follow Up:?3 Months * Images: * Sign off status: Completed true * Provider:?Jasmyn Claire DPM Date:?0 02/25/2025 Generated for Yobani carroll/Wayne/Sadie on:?03/16/2025 02:33 PM EDT History and Physical Notes * HPI (History of Present Illness) Category Sub-Category Detail Notes Category Not es Toe pain Nature: tenderness Location: Right foot Duration: several years Course: worse Aggravated by: any pressure, shoes Treatments: rest/alter normal da adrian activity, change in shoes At Risk footcare Pt States Last PCP Visit: Date: 5 Examination Category Sub-Category Detail Notes Category Not es Neurological SENSORY: Neurological exa m demonstrates, reduced light touch sensation, reduced sharp/dull pin prick discrimination , B/L, 5.07 monofilament test performed at plantar aspects of 5 varied sites per foot shows sensation, reduced , B/L Dermatologic SKIN FINDINGS: Skin exam reveal s Keratotic lesion(s) located at sub second metatarsal head B/L Orthopedic DIGITAL DEFORMITIES: Adducto-estefany us deformity noted T9, Reveals bulbous distal digit with inflammation and Pain on Palpation MUSCLE STRENGTH: 5/5 all groups in a [...]
== END 2025-03-16 14:36 | disposition home or self-care (01) ==
LOC: HO.HMCH 13:19
PROVIDERS: PCP Internal Medicine; Visit Provider Internal Medicine
DX: Z00.00 Encounter for general adult medical examination without abnormal findings (principal); E11.43 Type 2 diabetes mellitus with diabetic autonomic (poly)neuropathy; G80.1 Spastic diplegic cerebral palsy; F32.0 Major depressive disorder, single episode, mild; Z23 Encounter for immunization

== ENCOUNTER → 2025-03-16 13:18 | Outpatient (BNVA) | payer OTHER, SELFPAY | PROVIDERS: PCP Internal Medicine; Visit Provider Internal Medicine | DX: Z00.00 Encounter for general adult medical examination without abnormal findings (principal); Z23 Encounter for immunization; E13.9 Other specified diabetes mellitus without complications; G80.1 Spastic diplegic cerebral palsy; F32.0 Major depressive disorder, single episode, mild; Z79.4 Long term (current) use of insulin; Z79.84 Long term (current) use of oral hypoglycemic drugs | CPT/HCPCS: 83036; 90471; 90715; 96127; 99396 ==

== ENCOUNTER 2025-04-05 14:46 | Inpatient (IN) | payer OTHER, SELFPAY ==
--- NOTE | ~2025-04-05 | CT_ITS ---
EXAMINATION: CT ABDOMEN PELVIS WITHOUT IV CONTRAST HISTORY: nausea/vomiting, periumbilical abdominal pain COMPARISON: Comparison is made with the prior examination dated 03/01/2023. TECHNIQUE: CT scan of the abdomen and pelvis was performed without contrast using standard departmental protocol. Coronal and sagittal reformatted images were generated and reviewed. Oral contrast material was not administered at the request of the referring physician. This CT exam was performed with one or more of the following dose reduction techniques: automated exposure control, adjustment of the mA and/or kV according to patient size, use of iterative reconstruction technique. DLP: 296 mGy-cm FINDINGS: LOWER CHEST: The visualized lung bases are clear. There is no pleural effusion. CARDIOVASCULATURE: The heart is normal in size. There is no pericardial effusion. LIVER: The liver is normal in size and contour. The liver has an unremarkable unenhanced appearance. GALLBLADDER / BILE DUCTS: The gallbladder is unremarkable. There is no intra or extrahepatic biliary ductal dilatation. SPLEEN: The spleen is normal in size and has an unremarkable unenhanced appearance. PANCREAS: The pancreas has an unremarkable unenhanced appearance. ADRENAL GLANDS: Unremarkable. KIDNEYS/RETROPERITONEUM: Again seen are multiple nonobstructing bilateral renal calculi measuring up to 3-4 mm. Again seen are multiple rounded masses in both kidneys measuring up to 4.6 cm and the upper pole of the right kidney and 2.7 cm lower pole of the left kidney. Many of these are hyperdense but were previously shown to represent cysts by ultrasound. LYMPH NODES: No retroperitoneal lymphadenopathy is identified in the abdomen or pelvis. VASCULATURE: The abdominal aorta is normal in caliber. MESENTERY/PERITONEUM: No free fluid. No masses. There is no free intraperitoneal gas. STOMACH: There is debris in the distal esophagus. The stomach is distended with fluid. SMALL BOWEL: The small bowel is normal in caliber. There is fecalization of a small bowel loop in the left lower quadrant suggesting stasis. Evaluation is limited by lack of intravenous and oral contrast material. COLON: The majority of the colon is collapsed, limiting evaluation for wall thickening. APPENDIX: Normal. URINARY BLADDER/PELVIC ORGANS: The urinary bladder is unremarkable. There are calcifications of the prostate. BONES / SOFT TISSUES: There is levoscoliosis. CT/CT abdomen pelvis wo IV con IMPRESSION: 1. Bilateral nephrolithiasis as described, without evidence of ureteral obstruction. Bilateral renal cysts, many of which are hyperdense as seen previously. 2. Limited evaluation of the bowel due to lack of intravenous and oral contrast material. Electronically signed by: Jabari Brantley MD 04/06/2025 12:19 PM EDT
--- NOTE | 2025-04-05 14:49 | ED_ITS ---
HPI - Abdominal Pain General Chief Complaint: Recheck/Abnormal Lab/Rx Stated Complaint: Blood sugar 390 Time Seen by Provider: 04/05/25 16:14 Source: patient and family (brother) Mode of arrival: wheelchair Limitations: altered mental status History of Present Illness ED Provider: Dr. Kamla Higgins HPI narrative: 45-year-old male with a history of cerebral palsy, insulin-dependent diabetes presenting with lower abdominal pain, nausea, vomiting and diarrhea ongoing for the last several days. He has been noncompliant with his insulin. Admits he is supposed to take 15 units at night but has not been doing so for ?no particular reason?. Family at bedside reports that he sometimes ?gets depressed and does not take his insulin?. Recently lost his brother and has been dealing with that grief. No one else in the home is sick. Denies recorded fevers. No hematemesis or hematochezia. Related Data Home Medications ?Medication ?Instructions ?Recorded ?Confirmed glipizide 5 mg tablet 5 mg PO DAILY 11/30/24 04/06/25 amlodipine 5 mg tablet 5 mg PO DAILY 04/06/25 04/06/25 cyclobenzaprine 5 mg tablet 5 mg PO BEDTIME PRN Muscle Spasm 04/06/25 04/06/25 glucagon 3 mg/actuation nasal 3 mg intranasal USEASDIRECTD PRN 04/06/25 04/06/25 spray (Baqsimi) Hypocalcemia insulin glargine 100 unit/mL (3 15 unit subcut DAILY 04/06/25 04/06/25 mL) subcutaneous pen (Lantus Solostar U-100 Insulin) omeprazole 40 mg capsule,delayed 40 mg PO BID@0630,1630 04/06/25 04/06/25 release Previous Rx's ?Medication ?Instructions ?Recorded wheelchair #1 ea 10/11/20 disposable gloves #2 ea 03/25/23 blood sugar diagnostic (FreeStyle #50 ea 04/23/23 Test strips) insulin aspart U-100 100 unit/mL 5 unit (0.05 mL) subcut TID #15 mL 07/01/23 (3 mL) subcutaneous pen (Novolog FlexPen U-100 Insulin aspart) rosuvastatin 5 mg tablet 5 mg PO DAILY 90 days #90 tabs 08/13/23 pen needle, diabetic 32 gauge x #100 ea 12/07/23/ (BD Ultra-Fine Micro Pen Needle) crutch tips #2 ea 12/10/23 blood-glucose sensor (Dexcom G7 #3 ea 12/14/23 Sensor device) cholecalciferol (vitamin D3) 50 50 mcg PO DAILY 90 days #90 caps 03/14/24 mcg (2,000 unit) capsule metoclopramide HCl 10 mg tablet 10 mg PO Q6H PRN nausea and 12/07/24 vomiting #30 tabs blood-glucose meter (FreeStyle #1 ea 12/16/24 Lite Meter kit) pyridoxine (vitamin B6) 50 mg 50 mg PO DAILY 90 days #90 tabs 12/16/24 tablet nut.tx.gluc.intol,lac-free,soy 1 ea PO TID #237 mL 12/20/24 (Glucerna Therapeutic Nutrition oral liquid) ankle wraps #1 ea 03/16/25 crutch tips #40 ea 03/16/25 Allergies Allergy/AdvReac Type Severity Reaction Status Date / Time No Known Allergies Allergy Verified 04/05/25 14:51 Review of Systems Review of Systems Yes all other systems are reviewed and are negative [facility] Past Medical History Attestation statement: The following information was validated with the patient. 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 Social History 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 have visiting nurse or other home services: Yes ([employer]) Alcohol intake: current Alcohol intake frequency: holidays/special occasions only Alcohol type: beer Patient Tobacco Use Status: Former Tobacco user Tobacco use type: Cigarette e-Cigarette/Vaping Use: Never Used Second Hand Smoke Exposure: No Substance Use Type: Marijuana service: No Current occupational status: disabled Current occupation: rt handed Cognitive needs: Yes Hearing needs: No Vision needs: Yes Physical Exam ED Vital Signs: Vital Signs - 24 hr 04/06/25 01:35 04/06/25 03:02 04/06/25 03:53 Temperature 97.5 F Pulse Rate 82 90 77 Respiratory Rate 20 20 16 Blood Pressure 90/43 L 93/45 L 107/63 Pulse Oximetry 99 98 Oxygen Delivery Method Room Air Room Air 04/06/25 05:37 Temperature 98.6 F Pulse Rate 91 Respiratory Rate 20 Blood Pressure 101/55 L Pulse Oximetry 98 Oxygen Delivery Method Room Air BMI result Body Mass Index 18.0 Exam: Constitutional: ?Chronically ill-appearing, pale HEENT: ?No lymphadenopathy, neck is supple, trachea midline, PERRLA, EOMI, no nystagmus Chest: ?Equal rise, no crepitus, no deformities Respiratory: ?Lungs are clear to auscultation bilaterally, no wheezes/rales/rhonchi Cardio: ?Regular tachycardia, no murmurs rubs or gallops, peripheral pulses strong GI: ?Soft, nondistended, diffusely tender to palpation without rebound or guarding, positive bowel sounds in all quadrants : Deferred Skin: ?Warm, dry, no rashes Musculoskeletal: ?No deformities, normal tone Neuro: ?Alert and oriented, cranial nerves 2-12 intact, equal strength and sensation in bilateral upper and lower extremities, lower extremities are hypotonic and atrophied Psych: ?Flat affect, depressed mood, no visual or auditory hallucinations Course Course Course Narrative: This is a Rapid Medical Exam performed in triage by Shelia Jose PA-C. Full HPI, ROS and PE to be performed by primary ED provider. 45 yo M w/PMHx DM, gastroparesis, HLD, colitis, depression, BPH, presenting to the ED c/o N/V, abdominal pain and elevated glucose 390 [employer]. NON-compliant on meds x1-2 wks. PE: chronically ill appearing, in wheelchair, pale Plan: EKG, labs, UA, SARs Medical Decision Making Medical Decision Making MDM Narrative: 45-year-old male with history of type 1 diabetes presenting with hyperglycemia, acidosis, elevated lactic acid level in the setting of insulin noncompliance. Differential diagnosis includes ketoacidosis, hyperosmolar hyperglycemic syndrome,? dehydration, among many others. Broad-based work-up was initiated to evaluate? the hyperglycemia further. EKG does not show peaked T-waves. Suspect he is severely dehydrated as well. Do not suspect infectious process at this time though the patient does describe diarrhea and vomiting. Initiating fluid resuscitation, potassium repletion and insulin drip. Anticipate admission. 5:14 p.m. case discussed with load out person who recommends insulin and fluids rather than admission at this time. We will continue to monitor closely, administer potassium prior to insulin. Patient receiving fluids, Zofran and morphine. 7:27 p.m. repeat lactic acid of 2.7 improving with IV fluid administration. Patient continues to have emesis however. Medicated with droperidol. 10:17 p.m. patient remains hyperglycemic, acidotic, now with improved potassium. Given a bolus of insulin. He is no longer vomiting. Tolerating oral intake. 2:15 a.m. awaiting repeat labs. Repeat blood sugar after insulin bolus came down to 215. Signing out to oncoming provider pending repeat lab work and final disposition. 06:55 The patient's repeat VBG and BNP at 02:00 hours did reveal improvement of his pH to 7.32 and his anion gap came down to 22. Patient was given third liter of LR and 4 units of IV insulin. The patient's VBG and BNP at 06:02 hours demonstrated further improvement of his pH of 7.35 and his anion gap is now normal at 19. Glucose was 200. At this point, I believe the patient is stable to be admitted to the medical service for further management of his diabetes. I did discuss the patient's presentation over tiger text with the covering hospitalist, Dr. Saleh accepted the patient onto the hospitalist service. The patient continues to vomit he has not been able to take p.o., most likely secondary to gastroparesis. He was treated with Reglan 10 mg IV and Benadryl 50 mg IV. patient was started on D5 LR at 125 cc/hour and was given who was brought insulin 10 units subQ. Differential Diagnosis Differential Diagnoses: The differential diagnosis associated with the presentation includes (DKA, HHS, electrolyte abnormality, renal dysfunction, insulin noncompliance, among others. ) see above Admission/Observation Consideration of admission/observation: Escalation of care including admission/observation considered Consult Healthcare Provider Management of the patient was discussed with: Ac/Dc Rewinder (ICU) Lab Data MDM Lab Attestation statement: I reviewed the patient's lab results. Lab results independently reviewed by myself. Patient has a notably elevated white blood cell count of 10.9 associated with elevated H&H 16.4/46.1, likely secondary to dehydration rather than infectious process. His lactic acid level is also elevated. Blood sugar of 441 with an anion gap of 21, potassium of 3.3 beta hydroxybutyrate of 2.92. VBG shows acidosis 7.25 with bicarb of 24. 04/05/25 15:31 04/06/25 12:23 Labs: Lab Results 04/05/25 04/05/25 04/05/25 Range/Units 15:31 15:39 18:14 WBC 10.9 H (4.8-10.8) X10*3/uL RBC 5.23 (4.60-5.80) X10*6/uL Hgb 16.4 D (14.0-18.0) g/dl Hct 46.1 D (42.0-52.0) % MCV 88.1 (80.0-98.0) fL MCH 31.4 (27.0-33.0) pg MCHC 35.6 (31.0-36.0) g/dl RDW 11.7 (11.0-16.0) % Plt Count 308 D (160-400) X10*3/uL MPV 9.2 L (9.4-12.4) fL Immature Gran % (Auto) 0.5 H (0.0-0.4) % Neut % (Auto) 77.4 H (45-73) % Lymph % (Auto) 18.7 L (20-40) % [place] % (Auto) 2.8 (2-11) % Eos % (Auto) 0.1 (0-4) % Baso % (Auto) 0.5 (0-2) % Lymph # (Auto) 2.0 (1.2-4.9) X10*3/uL [place] # (Auto) 0.3 (0.1-1.2) X10*3/uL Eos # (Auto) 0.0 (0.0-0.4) X10*3/uL Baso # (Auto) 0.1 (0.0-0.2) X10*3/uL Abs Immat Gran (auto) 0.05 H (0.00-0.03) X10*3/uL Absolute Neuts (auto) 8.4 H (2.0-8.3) x10*3/uL Absolute Nucleated RBC 0.000 (0.0-0.012) X10*3/uL Nucleated RBC % (auto) 0.0 (0.0-0.2) /100WBC VBG pH 7.25 L (7.32-7.43) VBG pCO2 55 mmHg VBG pO2 49 mmHg VBG HCO3 24 (22-26) mmol/L VBG O2 Saturation 60.0 % VBG Base Excess -3.5 mmol/L Sodium 140 (135-145) mmol/L Potassium 3.3 (3.3-5.1) mmol/L Chloride 98 (96-108) mmol/L Carbon Dioxide 24 (22-29) mmol/L Anion Gap 21 H (12-20) BUN 16 (9-16) mg/dL Creatinine 0.90 (0.5-1.4) mg/dL Estim Creat Clear Calc 68.3 Estimated GFR > 60 POC Glucose (60-115) mg/dL Random Glucose 441 H* (60-115) mg/dL Osmolality (281-305) mosm/kg Lactic Acid 4.0 H* (0.5-2.0) mmol/L Lactic Acid F/U @ 2Hr (0.5-2.0) mmol/L Lactic Acid F/U @ 4Hr (0.5-2.0) mmol/L Calcium 10.1 D (8.4-10.2) mg/dL Phosphorus (2.7-4.5) mg/dL Magnesium 2.1 (1.6-2.6) mg/dL Total Bilirubin 1.4 H (0.0-1.0) mg/dL Direct Bilirubin 0.3 (0.0-0.5) mg/dL AST 25 (5-37) U/L ALT 35 (0-40) U/L Alkaline Phosphatase 96 (39-117) U/L Total Protein 8.7 H (6.5-8.0) g/dL Albumin 5.3 H (3.5-5.0) g/dL Lipase 8 (8-78) U/L Beta-Hydroxybutyrate 2.92 H (0.02-0.27) mmol/L Urine Color Yellow Urine Appearance Clear Urine pH 5.5 (5.0-9.0) Ur Specific [place] >= 1.030 H (1.005-1.025) Urine Protein 100 (2+) H (Neg-Trace) mg/dL Urine Glucose (UA) >=1000 H (Negative) mg/dL Urine Ketones 80 (Negative) mg/dL Urine Blood Small (1+) H (Negative) Urine Nitrite Negative (Negative) Ur Leukocyte Esterase Negative (Negative) Urine RBC 6-10 H (0-2) /HPF Urine WBC 0-5 (0-5) /HPF Ur Squamous Epith Cells 0-2 (0-2) /HPF Urine Bacteria None Seen (None Seen) Hyaline Casts 0-2 (0-2) /LPF Influenza Type A (PCR) NEGATIVE (Negative) Influenza Type B (PCR) NEGATIVE (Negative) RSV RNA Qual (PCR) NEGATIVE (Negative) SARS-CoV-2 RNA (RT-PCR) NEGATIVE (Negative) 04/05/25 04/05/25 04/05/25 Range/Units 18:56 21:06 21:48 WBC (4.8-10.8) X10*3/uL RBC (4.60-5.80) X10*6/uL Hgb (14.0-18.0) g/dl Hct (42.0-52.0) % MCV (80.0-98.0) fL MCH (27.0-33.0) pg MCHC (31.0-36.0) g/dl RDW (11.0-16.0) % Plt Count (160-400) X10*3/uL MPV (9.4-12.4) fL Immature Gran % (Auto) (0.0-0.4) % Neut % (Auto) (45-73) % Lymph % (Auto) (20-40) % [place] % (Auto) (2-11) % Eos % (Auto) (0-4) % Baso % (Auto) (0-2) % Lymph # (Auto) (1.2-4.9) X10*3/uL [place] # (Auto) (0.1-1.2) X10*3/uL Eos # (Auto) (0.0-0.4) X10*3/uL Baso # (Auto) (0.0-0.2) X10*3/uL Abs Immat Gran (auto) (0.00-0.03) X10*3/uL Absolute Neuts (auto) (2.0-8.3) x10*3/uL Absolute Nucleated RBC (0.0-0.012) X10*3/uL Nucleated RBC % (auto) (0.0-0.2) /100WBC VBG pH (7.32-7.43) VBG pCO2 mmHg VBG pO2 mmHg VBG HCO3 (22-26) mmol/L VBG O2 Saturation % VBG Base Excess mmol/L Sodium 140 (135-145) mmol/L Potassium 4.2 D (3.3-5.1) mmol/L Chloride 103 (96-108) mmol/L Carbon Dioxide 17 L (22-29) mmol/L Anion Gap 24 H (12-20) BUN 17 H (9-16) mg/dL Creatinine 0.84 (0.5-1.4) mg/dL Estim Creat Clear Calc 73.2 Estimated GFR > 60 POC Glucose 386 H* (60-115) mg/dL Random Glucose 391 H* (60-115) mg/dL Osmolality (281-305) mosm/kg Lactic Acid (0.5-2.0) mmol/L Lactic Acid F/U @ 2Hr 2.7 H* (0.5-2.0) mmol/L Lactic Acid F/U @ 4Hr 2.6 H* (0.5-2.0) mmol/L Calcium 9.4 D (8.4-10.2) mg/dL Phosphorus (2.7-4.5) mg/dL Magnesium (1.6-2.6) mg/dL Total Bilirubin (0.0-1.0) mg/dL Direct Bilirubin (0.0-0.5) mg/dL AST (5-37) U/L ALT (0-40) U/L Alkaline Phosphatase (39-117) U/L Total Protein (6.5-8.0) g/dL Albumin (3.5-5.0) g/dL Lipase (8-78) U/L Beta-Hydroxybutyrate (0.02-0.27) mmol/L Urine Color Urine Appearance Urine pH (5.0-9.0) Ur Specific [place] (1.005-1.025) Urine Protein (Neg-Trace) mg/dL Urine Glucose (UA) (Negative) mg/dL Urine Ketones (Negative) mg/dL Urine Blood (Negative) Urine Nitrite (Negative) Ur Leukocyte Esterase (Negative) Urine RBC (0-2) /HPF Urine WBC (0-5) /HPF Ur Squamous Epith Cells (0-2) /HPF Urine Bacteria (None Seen) Hyaline Casts (0-2) /LPF Influenza Type A (PCR) (Negative) Influenza Type B (PCR) (Negative) RSV RNA Qual (PCR) (Negative) SARS-CoV-2 RNA (RT-PCR) (Negative) 04/05/25 04/05/25 04/06/25 Range/Units 21:55 22:07 00:34 WBC (4.8-10.8) X10*3/uL RBC (4.60-5.80) X10*6/uL Hgb (14.0-18.0) g/dl Hct (42.0-52.0) % MCV (80.0-98.0) fL MCH (27.0-33.0) pg MCHC (31.0-36.0) g/dl RDW (11.0-16.0) % Plt Count (160-400) X10*3/uL MPV (9.4-12.4) fL Immature Gran % (Auto) (0.0-0.4) % Neut % (Auto) (45-73) % Lymph % (Auto) (20-40) % [place] % (Auto) (2-11) % Eos % (Auto) (0-4) % Baso % (Auto) (0-2) % Lymph # (Auto) (1.2-4.9) X10*3/uL [place] # (Auto) (0.1-1.2) X10*3/uL Eos # (Auto) (0.0-0.4) X10*3/uL Baso # (Auto) (0.0-0.2) X10*3/uL Abs Immat Gran (auto) (0.00-0.03) X10*3/uL Absolute Neuts (auto) (2.0-8.3) x10*3/uL Absolute Nucleated RBC (0.0-0.012) X10*3/uL Nucleated RBC % (auto) (0.0-0.2) /100WBC VBG pH 7.26 L (7.32-7.43) VBG pCO2 40 mmHg VBG pO2 51 mmHg VBG HCO3 18 L (22-26) mmol/L VBG O2 Saturation 73.0 % VBG Base Excess -8.1 mmol/L Sodium (135-145) mmol/L Potassium (3.3-5.1) mmol/L Chloride (96-108) mmol/L Carbon Dioxide (22-29) mmol/L Anion Gap (12-20) BUN (9-16) mg/dL Creatinine (0.5-1.4) mg/dL Estim Creat Clear Calc Estimated GFR POC Glucose 347 H 241 H (60-115) mg/dL Random Glucose (60-115) mg/dL Osmolality (281-305) mosm/kg Lactic Acid (0.5-2.0) mmol/L Lactic Acid F/U @ 2Hr (0.5-2.0) mmol/L Lactic Acid F/U @ 4Hr (0.5-2.0) mmol/L Calcium (8.4-10.2) mg/dL Phosphorus (2.7-4.5) mg/dL Magnesium (1.6-2.6) mg/dL Total Bilirubin (0.0-1.0) mg/dL Direct Bilirubin (0.0-0.5) mg/dL AST (5-37) U/L ALT (0-40) U/L Alkaline Phosphatase (39-117) U/L Total Protein (6.5-8.0) g/dL Albumin (3.5-5.0) g/dL Lipase (8-78) U/L Beta-Hydroxybutyrate (0.02-0.27) mmol/L Urine Color Urine Appearance Urine pH (5.0-9.0) Ur Specific [place] (1.005-1.025) Urine Protein (Neg-Trace) mg/dL Urine Glucose (UA) (Negative) mg/dL Urine Ketones (Negative) mg/dL Urine Blood (Negative) Urine Nitrite (Negative) Ur Leukocyte Esterase (Negative) Urine RBC (0-2) /HPF Urine WBC (0-5) /HPF Ur Squamous Epith Cells (0-2) /HPF Urine Bacteria (None Seen) Hyaline Casts (0-2) /LPF Influenza Type A (PCR) (Negative) Influenza Type B (PCR) (Negative) RSV RNA Qual (PCR) (Negative) SARS-CoV-2 RNA (RT-PCR) (Negative) 04/06/25 04/06/25 04/06/25 Range/Units 02:04 02:10 03:07 WBC (4.8-10.8) X10*3/uL RBC (4.60-5.80) X10*6/uL Hgb (14.0-18.0) g/dl Hct (42.0-52.0) % MCV (80.0-98.0) fL MCH (27.0-33.0) pg MCHC (31.0-36.0) g/dl RDW (11.0-16.0) % Plt Count (160-400) X10*3/uL MPV (9.4-12.4) fL Immature Gran % (Auto) (0.0-0.4) % Neut % (Auto) (45-73) % Lymph % (Auto) (20-40) % [place] % (Auto) (2-11) % Eos % (Auto) (0-4) % Baso % (Auto) (0-2) % Lymph # (Auto) (1.2-4.9) X10*3/uL [place] # (Auto) (0.1-1.2) X10*3/uL Eos # (Auto) (0.0-0.4) X10*3/uL Baso # (Auto) (0.0-0.2) X10*3/uL Abs Immat Gran (auto) (0.00-0.03) X10*3/uL Absolute Neuts (auto) (2.0-8.3) x10*3/uL Absolute Nucleated RBC (0.0-0.012) X10*3/uL Nucleated RBC % (auto) (0.0-0.2) /100WBC VBG pH 7.32 (7.32-7.43) VBG pCO2 40 mmHg VBG pO2 35 mmHg VBG HCO3 21 L (22-26) mmol/L VBG O2 Saturation 48.0 % VBG Base Excess -4.5 mmol/L Sodium 139 (135-145) mmol/L Potassium 4.7 (3.3-5.1) mmol/L Chloride 103 (96-108) mmol/L Carbon Dioxide 19 L (22-29) mmol/L Anion Gap 22 H (12-20) BUN 18 H (9-16) mg/dL Creatinine 0.83 (0.5-1.4) mg/dL Estim Creat Clear Calc 74.1 Estimated GFR > 60 POC Glucose 266 H (60-115) mg/dL Random Glucose 264 H (60-115) mg/dL Osmolality (281-305) mosm/kg Lactic Acid (0.5-2.0) mmol/L Lactic Acid F/U @ 2Hr (0.5-2.0) mmol/L Lactic Acid F/U @ 4Hr (0.5-2.0) mmol/L Calcium 9.4 (8.4-10.2) mg/dL Phosphorus (2.7-4.5) mg/dL Magnesium (1.6-2.6) mg/dL Total Bilirubin (0.0-1.0) mg/dL Direct Bilirubin (0.0-0.5) mg/dL AST (5-37) U/L ALT (0-40) U/L Alkaline Phosphatase (39-117) U/L Total Protein (6.5-8.0) g/dL Albumin (3.5-5.0) g/dL Lipase (8-78) U/L Beta-Hydroxybutyrate (0.02-0.27) mmol/L Urine Color Urine Appearance Urine pH (5.0-9.0) Ur Specific [place] (1.005-1.025) Urine Protein (Neg-Trace) mg/dL Urine Glucose (UA) (Negative) mg/dL Urine Ketones (Negative) mg/dL Urine Blood (Negative) Urine Nitrite (Negative) Ur Leukocyte Esterase (Negative) Urine RBC (0-2) /HPF Urine WBC (0-5) /HPF Ur Squamous Epith Cells (0-2) /HPF Urine Bacteria (None Seen) Hyaline Casts (0-2) /LPF Influenza Type A (PCR) (Negative) Influenza Type B (PCR) (Negative) RSV RNA Qual (PCR) (Negative) SARS-CoV-2 RNA (RT-PCR) (Negative) 04/06/25 04/06/25 04/06/25 Range/Units 05:50 06:02 06:10 WBC (4.8-10.8) X10*3/uL RBC (4.60-5.80) X10*6/uL Hgb (14.0-18.0) g/dl Hct (42.0-52.0) % MCV (80.0-98.0) fL MCH (27.0-33.0) pg MCHC (31.0-36.0) g/dl RDW (11.0-16.0) % Plt Count (160-400) X10*3/uL MPV (9.4-12.4) fL Immature Gran % (Auto) (0.0-0.4) % Neut % (Auto) (45-73) % Lymph % (Auto) (20-40) % [place] % (Auto) (2-11) % Eos % (Auto) (0-4) % Baso % (Auto) (0-2) % Lymph # (Auto) (1.2-4.9) X10*3/uL [place] # (Auto) (0.1-1.2) X10*3/uL Eos # (Auto) (0.0-0.4) X10*3/uL Baso # (Auto) (0.0-0.2) X10*3/uL Abs Immat Gran (auto) (0.00-0.03) X10*3/uL Absolute Neuts (auto) (2.0-8.3) x10*3/uL Absolute Nucleated RBC (0.0-0.012) X10*3/uL Nucleated RBC % (auto) (0.0-0.2) /100WBC VBG pH 7.35 (7.32-7.43) VBG pCO2 33 mmHg VBG pO2 47 mmHg VBG HCO3 18 L (22-26) mmol/L VBG O2 Saturation 74.0 % VBG Base Excess -5.9 mmol/L Sodium 138 (135-145) mmol/L Potassium 4.2 (3.3-5.1) mmol/L Chloride 104 (96-108) mmol/L Carbon Dioxide 19 L (22-29) mmol/L Anion Gap 19 (12-20) BUN 17 H (9-16) mg/dL Creatinine 0.78 (0.5-1.4) mg/dL Estim Creat Clear Calc 78.8 Estimated GFR > 60 POC Glucose 200 H (60-115) mg/dL Random Glucose 200 H (60-115) mg/dL Osmolality 293 (281-305) mosm/kg Lactic Acid (0.5-2.0) mmol/L Lactic Acid F/U @ 2Hr (0.5-2.0) mmol/L Lactic Acid F/U @ 4Hr (0.5-2.0) mmol/L Calcium 9.4 (8.4-10.2) mg/dL Phosphorus 2.1 L (2.7-4.5) mg/dL Magnesium 1.7 (1.6-2.6) mg/dL Total Bilirubin (0.0-1.0) mg/dL Direct Bilirubin (0.0-0.5) mg/dL AST (5-37) U/L ALT (0-40) U/L Alkaline Phosphatase (39-117) U/L Total Protein (6.5-8.0) g/dL Albumin (3.5-5.0) g/dL Lipase (8-78) U/L Beta-Hydroxybutyrate (0.02-0.27) mmol/L Urine Color Urine Appearance Urine pH (5.0-9.0) Ur Specific [place] (1.005-1.025) Urine Protein (Neg-Trace) mg/dL Urine Glucose (UA) (Negative) mg/dL Urine Ketones (Negative) mg/dL Urine Blood (Negative) Urine Nitrite (Negative) Ur Leukocyte Esterase (Negative) Urine RBC (0-2) /HPF Urine WBC (0-5) /HPF Ur Squamous Epith Cells (0-2) /HPF Urine Bacteria (None Seen) Hyaline Casts (0-2) /LPF Influenza Type A (PCR) (Negative) Influenza Type B (PCR) (Negative) RSV RNA Qual (PCR) (Negative) SARS-CoV-2 RNA (RT-PCR) (Negative) 04/06/25 Range/Units 06:44 WBC (4.8-10.8) X10*3/uL RBC (4.60-5.80) X10*6/uL Hgb (14.0-18.0) g/dl Hct (42.0-52.0) % MCV (80.0-98.0) fL MCH (27.0-33.0) pg MCHC (31.0-36.0) g/dl RDW (11.0-16.0) % Plt Count (160-400) X10*3/uL MPV (9.4-12.4) fL Immature Gran % (Auto) (0.0-0.4) % Neut % (Auto) (45-73) % Lymph % (Auto) (20-40) % [place] % (Auto) (2-11) % Eos % (Auto) (0-4) % Baso % (Auto) (0-2) % Lymph # (Auto) (1.2-4.9) X10*3/uL [place] # (Auto) (0.1-1.2) X10*3/uL Eos # (Auto) (0.0-0.4) X10*3/uL Baso # (Auto) (0.0-0.2) X10*3/uL Abs Immat Gran (auto) (0.00-0.03) X10*3/uL Absolute Neuts (auto) (2.0-8.3) x10*3/uL Absolute Nucleated RBC (0.0-0.012) X10*3/uL Nucleated RBC % (auto) (0.0-0.2) /100WBC VBG pH (7.32-7.43) VBG pCO2 mmHg VBG pO2 mmHg VBG HCO3 (22-26) mmol/L VBG O2 Saturation % VBG Base Excess mmol/L Sodium (135-145) mmol/L Potassium (3.3-5.1) mmol/L Chloride (96-108) mmol/L Carbon Dioxide (22-29) mmol/L Anion Gap (12-20) BUN (9-16) mg/dL Creatinine (0.5-1.4) mg/dL Estim Creat Clear Calc Estimated GFR POC Glucose 220 H (60-115) mg/dL Random Glucose (60-115) mg/dL Osmolality (281-305) mosm/kg Lactic Acid (0.5-2.0) mmol/L Lactic Acid F/U @ 2Hr (0.5-2.0) mmol/L Lactic Acid F/U @ 4Hr (0.5-2.0) mmol/L Calcium (8.4-10.2) mg/dL Phosphorus (2.7-4.5) mg/dL Magnesium (1.6-2.6) mg/dL Total Bilirubin (0.0-1.0) mg/dL Direct Bilirubin (0.0-0.5) mg/dL AST (5-37) U/L ALT (0-40) U/L Alkaline Phosphatase (39-117) U/L Total Protein (6.5-8.0) g/dL Albumin (3.5-5.0) g/dL Lipase (8-78) U/L Beta-Hydroxybutyrate (0.02-0.27) mmol/L Urine Color Urine Appearance Urine pH (5.0-9.0) Ur Specific [place] (1.005-1.025) Urine Protein (Neg-Trace) mg/dL Urine Glucose (UA) (Negative) mg/dL Urine Ketones (Negative) mg/dL Urine Blood (Negative) Urine Nitrite (Negative) Ur Leukocyte Esterase (Negative) Urine RBC (0-2) /HPF Urine WBC (0-5) /HPF Ur Squamous Epith Cells (0-2) /HPF Urine Bacteria (None Seen) Hyaline Casts (0-2) /LPF Influenza Type A (PCR) (Negative) Influenza Type B (PCR) (Negative) RSV RNA Qual (PCR) (Negative) SARS-CoV-2 RNA (RT-PCR) (Negative) Independent Interpretation I performed an independent interpretation of an: EKG Interpretation: My independent interpretation of the EKG shows a normal sinus rhythm with a rate of 76, normal interval, normal axis, no ST elevation to suggest ischemic changes, T-waves are not peaked, improved from previous on 11/30/2024 Independent Historian Clinical information obtained from an independent historian. History obtained from or confirmed by: Friend Chronic Conditions Patient?s care impacted by: Diabetes and Other (Cerebral palsy) Social Determinants Patient?s care significantly limited by Social Determinants of Health including: Problems related to primary support group Medications Administered Generic Name Dose Route Start Last Admin Trade Name Freq PRN Reason Stop Dose Admin Enoxaparin Sodium 40 mg 04/06/25 09:00 04/06/25 10:20 Enoxaparin Sodium 40 Mg/0.4 Ml Syringe SUBCUT 40 mg Q24H BOBO Administration Famotidine 20 mg 04/06/25 10:20 04/06/25 21:39 Famotidine/Pf 20 Mg/2 Ml Vial IVPUSH 20 mg BID BOBO Administration Dextrose/Lactated Ringer's 1,000 mls @ 125 mls/hr 04/06/25 07:45 04/06/25 17:02 D5lr IVCONT 125 mls/hr .Q8H BOBO Administration Insulin Human Lispro 0 unit 04/06/25 07:30 04/06/25 21:39 Insulin Lispro 100 Unit/Ml 3 Ml Vial SUBCUT 2 unit QIDACHS BOBO Administration Protocol Morphine Sulfate 4 mg 04/06/25 16:30 04/06/25 21:39 Morphine Sulfate 2 Mg/Ml Cartridge IVPUSH 4 mg Q4H PRN Administration Pain, Severe (Pain Scale 7-10) Protocol Omeprazole 40 mg 04/06/25 16:30 04/06/25 16:59 Omeprazole 40 Mg Capsule.Dr PO 40 mg BID@0630,1630 BOBO Administration Ondansetron HCl 4 mg 04/06/25 10:15 04/06/25 16:54 Ondansetron Hcl 4 Mg/2 Ml Vial IVPUSH 4 mg Q6H PRN Administration Nausea and Vomiting Sodium Chloride 3 ml 04/06/25 16:00 04/06/25 16:57 0.9 % Sodium Chloride Flush 3 Ml Syringe IVFLUSH 3 ml QSHIFT BOBO Administration Discontinued Medications Generic Name Dose Route Start Last Admin Trade Name Freq PRN Reason Stop Dose Admin Diphenhydramine HCl 50 mg 04/06/25 07:32 04/06/25 07:45 Diphenhydramine Hcl 50 Mg/Ml Vial IVPUSH 04/06/25 07:33 50 mg ONCE STA Administration Droperidol 1.25 mg 04/05/25 18:54 04/05/25 19:02 Droperidol 5 Mg/2 Ml Vial IVPUSH 04/05/25 18:55 1.25 mg ONCE ONE Administration Lactated Ringer's 1,000 mls @ 999 mls/hr 04/05/25 16:28 04/05/25 19:11 Lr IV 04/05/25 17:28 Infused .Q1H1M ONE Infusion Potassium Chloride 20 meq in 100 mls @ 100 mls/hr 04/05/25 17:18 04/05/25 18:48 Potassium Chloride/H20 IV 04/05/25 18:17 Not Given ONCE ONE Potassium Chloride 10 meq in 100 mls @ 100 mls/hr 04/05/25 18:30 04/05/25 21:40 Potassium Chloride/H20 IV 04/05/25 20:29 Infused Q1H BOBO Infusion Lactated Ringer's 1,000 mls @ 999 mls/hr 04/05/25 21:10 04/05/25 23:10 Lr IV 04/05/25 22:10 Infused .Q1H1M ONE Infusion Potassium Chloride/Sodium Chloride 20 meq in 1,000 mls @ 150 mls/hr 04/05/25 22:30 04/06/25 09:16 Kcl 20 Meq In 0.45% Sod IVCONT Infused .Q6H40M BOBO Infusion Lactated Ringer's 1,000 mls @ 999 mls/hr 04/06/25 03:35 04/06/25 04:55 Lr IV 04/06/25 04:35 Infused .Q1H1M STA Infusion Insulin Human Lispro 10 unit 04/06/25 07:40 04/06/25 07:45 Insulin Lispro 100 Unit/Ml 3 Ml Vial SUBCUT 04/06/25 07:41 10 unit ONCE ONE Administration Insulin Human Regular 5 unit 04/05/25 22:13 04/05/25 22:34 Insulin Regular, Human 100 Unit/Ml 10 Ml Vial IVPUSH 04/05/25 22:14 5 unit ONCE ONE Administration Insulin Human Regular 4 unit 04/06/25 03:35 04/06/25 03:43 Insulin Regular, Human 100 Unit/Ml 10 Ml Vial IVPUSH 04/06/25 03:36 4 unit ONCE ONE Administration Metoclopramide HCl 10 mg 04/06/25 07:32 04/06/25 07:45 Metoclopramide Hcl 10 Mg/2 Ml Vial IVPUSH 04/06/25 07:33 10 mg ONCE STA Administration Morphine Sulfate 4 mg 04/05/25 16:40 04/05/25 18:10 Morphine Sulfate 4 Mg/Ml Cartridge IVPUSH 04/05/25 16:41 4 mg ONCE ONE Administration Protocol Morphine Sulfate 2 mg 04/06/25 09:00 04/06/25 14:33 Morphine Sulfate 2 Mg/Ml Cartridge IVPUSH 2 mg Q4H PRN Administration Pain, Severe (Pain Scale 7-10) Protocol Ondansetron HCl 4 mg 04/05/25 16:40 04/05/25 18:10 Ondansetron Hcl 4 Mg/2 Ml Vial IVPUSH 04/05/25 16:41 4 mg ONCE ONE Administration Critical Care Time Critical Care Time Critical Care Time: Yes Total Critical Care Time: 120 Attestation: Critical Care: The patient was critically ill with a high probability of imminent or life threatening deterioration. I spent greater than 30 minutes of discontinuous time evaluating the patient,delivering critical care at the bedside, discussing and evaluating pertinent data with consultants. Critical care time does not include time spent performing separately billable procedures or teaching. Total time spent performing critical care was 120 minutes. Discharge Plan Discharge Clinical Impression: Abdominal pain, Medically noncompliant, Diabetic gastroparesis Diabetic keto-acidosis Qualifiers: Diabetes mellitus complication detail: without coma Patient Disposition: Admitted As Inpatient Interventions: Admission Worksheet (ED) Last Done: 04/06/25 15:02 Discharge Date/Time: 04/06/25 15:39
[2025-04-05 14:50] VITALS: BP 163/91; PULSE 72; RESP 18; TEMP 36.9; O2SAT 100; BMI 18.0
--- NOTE | 2025-04-05 14:51 | ECG_ITS ---
Test Reason : Nausea/ Vomitting Blood Pressure : */* mmHG Vent. Rate : 76 BPM Atrial Rate : 76 BPM P-R Int : 120 ms QRS Dur : 80 ms QT Int : 394 ms P-R-T Axes : 10 55 20 degrees QTcB Int : 443 ms Normal sinus rhythm Normal ECG When compared with ECG of 30-Nov-2024 17:51, Vent. rate has decreased by 40 bpm Referred By: Shelia Jose Electronically Signed By: DIAN ZARAGOZA MD
[2025-04-05 15:38] LABS: MANUAL DIFF FLAG NO
[2025-04-05 15:41] LABS: Basophils Absolute Auto 0.1 X10*3/uL (0.0-0.2); Basophils Percent Auto 0.5 % (0-2); Eosinophils Percent Auto 0.1 % (0-4); Hematocrit 46.1 % (42.0-52.0); Hemoglobin 16.4 g/dl (14.0-18.0); Imm Gran Abs Auto 0.05 X10*3/uL (0.00-0.03); Imm Gran Pct Auto 0.5 % (0.0-0.4); Lymphocytes Percent Auto 18.7 % (20-40); Mean Corpuscular HGB Conc 35.6 g/dl (31.0-36.0); Mean Corpuscular Hemoglobin 31.4 pg (27.0-33.0); Mean Corpuscular Volume 88.1 fL (80.0-98.0); Mean Platelet Volume 9.2 fL (9.4-12.4); Monocytes Absolute Auto 0.3 X10*3/uL (0.1-1.2); Monocytes Percent Auto 2.8 % (2-11); Neutrophils Absolute Auto 8.4 x10*3/uL (2.0-8.3); Neutrophils Percent Auto 77.4 % (45-73); Platelet Count 308 X10*3/uL (160-400); Red Blood Count 5.23 X10*6/uL (4.60-5.80); Red Cell Distribution Width 11.7 % (11.0-16.0); White Blood Count 10.9 X10*3/uL (4.8-10.8)
[2025-04-05 15:42] LABS: VBG Base Excess -3.5 mmol/L; VBG HCO3 24 mmol/L (22-26); VBG pCO2 55 mmHg; VBG pH 7.25 (7.32-7.43); VBG pO2 49 mmHg
[2025-04-05 15:43] LABS: Venous Blood Gas Refer to POC result
[2025-04-05 16:04] LABS: Alanine Aminotransferase 35 U/L (0-40); Albumin Level 5.3 g/dL (3.5-5.0); Alkaline Phosphatase 96 U/L (39-117); Anion Gap 21 (12-20); Aspartate Amino Transferase 25 U/L (5-37); Beta-Hydroxybutyrate 2.92 mmol/L (0.02-0.27); Bilirubin Direct 0.3 mg/dL (0.0-0.5); Bilirubin Total 1.4 mg/dL (0.0-1.0); Blood Urea Nitrogen 16 mg/dL (9-16); Calcium 10.1 mg/dL (8.4-10.2); Carbon Dioxide 24 mmol/L (22-29); Chloride 98 mmol/L (96-108); Creatinine Clr Calc Pharmacy 68.3; Estimated Glomerular Filt Rate > 60; Glucose Random 441 mg/dL (60-115); Lipase 8 U/L (8-78); Magnesium 2.1 mg/dL (1.6-2.6); Potassium 3.3 mmol/L (3.3-5.1); Sodium 140 mmol/L (135-145); Total Protein 8.7 g/dL (6.5-8.0)
[2025-04-05 16:16] LABS: Influenza A PCR NEGATIVE (Negative); Influenza B PCR NEGATIVE (Negative); Resp Syncy Virus RNA Qual PCR NEGATIVE (Negative); SARS COV2 PCR INHOUSE NEGATIVE (Negative)
--- OUTSIDE RECORDS SUMMARY | 2025-04-05 16:28 | XMS_ITS ---
[facility] Address [address] [place] [address] Care Team Providers Care Astronaut Mission Specialist Name Role Phone Beverley PONCE, Isabell Primary Care Provider Unavail Jasmyn Sosa Unavailable [phone] Allergies No Known Allergies REASON FOR VISIT [...] Ordered Date Performed Result Body Sit e [id number] NAIL, 6 OR MORE 02/25/2025 N/A Encounters Encounter Location Date Provider Diagnosis [facility] [place] [address] [place] [id number] 02/25/2025 Jasmyn Claire Type 2 diabetes mellitus [...] Treatment Pending Test Test Name Order Date [id number] NAIL, 6 OR MORE 02/25/2025 Next Appt Details Follow Up: 3 Months, Reason: Provider Name:Jasmyn Dunn liyah, 05/31/2025 09:15:00 AM, [address] [address], [place], [phone], Procedure Notes * Category Sub-Category Detail Notes [...] use of a nail nipper and/or dremel-type edge grinder, to a more viable healthy nail [...] to maintain effectiveness in symptomatic relief - 94542 Keratoma Treatment Parring or Cutting o f [...] instrumentation by the physician of record - 80490 Progress Notes * Brynn HUGGINSOB:1980 (45 yo M)Acc No.[id number]:02/25/2025 Progress Note Patient:?Wilman HUGGINS Provider:?Jasmyn Claire DPM :1980???Age:45 Y???Sex:Male Camilo e:02/25/2025 Address:[address] [place], [place] [id number] Pcp:Isabell Lowery MD Subjective: * Chief Complaints: [...] 1982, 1989colonscopy 02/24/24 * Hospitalization/Major Diagno stic Procedure:?[facility] [place] [facility] High blood sugar 615/2018Food Posion 10/2019[facility] [place] GI bleed 01/2022[facility] [place] covid [facility]- colitis 04/2023[facility] [place]- fractured right wrist 11/2024 * Family History:?Mother: [...] use of a nail nipper and/or dremel-type edge grinder, to a more viable healthy nail [...] to maintain effectiveness in symptomatic relief - 81746.?Keratoma Treatment:?Parring or Cutting of Benign Hyperkeratotic Lesion(s)?(-56) [...] instrumentation by the physician of record - 44718.? * Procedure Codes:?10147 DEBRI DE NAIL, 6 OR MORE, Modifiers: XS 40306 TRIM SKIN LESIONS, 2 TO 4, Modifiers: [...] DPM Date:?0 02/25/2025 Generated for Yobani carroll/Wayne/Sadie on:?04/05/2025 04:27 PM EDT History and Physical Notes * [...]
[2025-04-05 17:37] LABS: Reflex Lactate? Lactic Acid Added
[2025-04-05 18:10] VITALS: RESP 20
[2025-04-05] MEDS: Lactated Ringers 1,000 ML 999 ML IV ×2 (18:10→22:02)
[2025-04-05] MEDS: ondansetron HCL 4 MG/2 ML VIAL IVPUSH (18:10)
[2025-04-05] MEDS: Morphine Sulfate 4 MG/ML CARTRIDGE IVPUSH (18:10)
[2025-04-05 18:25] LABS: Appearance Urine Clear; Color Urine Yellow; Glucose Urine UA >=1000 mg/dL (Negative); Leukocyte Esterase Urine Negative (Negative); Nitrite Urine Negative (Negative); PH 5.5 (5.0-9.0); Specific Gravity - Urine >= 1.030 (1.005-1.025); UMIC TRIGGER UACC YES; Urine Blood Small (1+) (Negative); Urine Ketones 80 mg/dL (Negative); Urine Protein 100 (2+) mg/dL (Neg-Trace)
[2025-04-05 18:28] LABS: Bacteria Urine None Seen (None Seen); Hyaline Casts Urine 0-2 /LPF (0-2); Squamous Epithelial Cell Urine 0-2 /HPF (0-2); WBC Urine 0-5 /HPF (0-5)
[2025-04-05] MEDS: Potassium Chloride/H20 10 MEQ/100 ML PIGGYBACK 100 MEQ IV ×2 (18:50→20:07)
[2025-04-05] MEDS: droPERidol 5 MG/2 ML VIAL 1.25 MG IVPUSH (19:02)
[2025-04-05 19:13] VITALS: BP 154/73; PULSE 75; RESP 20; TEMP 36.4; O2SAT 99
[2025-04-05 19:27] LABS: ~Lactic Acid-LAB USE ONLY 2.7 mmol/L (0.5-2.0)
[2025-04-05 20:59] LABS: Reflex Lactate? 2 Y
[2025-04-05 21:09] LABS: Glucose, Whole Blood 386 mg/dL (60-115)
[2025-04-05 21:48] VITALS: BP 122/59; PULSE 72; RESP 20; O2SAT 96
[2025-04-05 21:57] LABS: Venous Blood Gas Refer to POC result
[2025-04-05 21:59] LABS: VBG Base Excess -8.1 mmol/L; VBG HCO3 18 mmol/L (22-26); VBG pCO2 40 mmHg; VBG pH 7.26 (7.32-7.43); VBG pO2 51 mmHg
[2025-04-05 22:10] LABS: Anion Gap 24 (12-20); Blood Urea Nitrogen 17 mg/dL (9-16); Calcium 9.4 mg/dL (8.4-10.2); Carbon Dioxide 17 mmol/L (22-29); Chloride 103 mmol/L (96-108); Creatinine Clr Calc Pharmacy 73.2; Estimated Glomerular Filt Rate > 60; Glucose Random 391 mg/dL (60-115); Potassium 4.2 mmol/L (3.3-5.1); Sodium 140 mmol/L (135-145)
[2025-04-05 22:11] LABS: Glucose, Whole Blood 347 mg/dL (60-115)
[2025-04-05 22:21] LABS: ~Lactic Acid-LAB USE ONLY 2.6 mmol/L (0.5-2.0)
[2025-04-05] MEDS: Insulin Regular, Human 100 UNIT/ML 10 ML VIAL IVPUSH (22:34)
[2025-04-05] MEDS: KCl 20 mEq in 0.45% Sod 20 MEQ/1,000 ML IV.SOLN 150 MEQ IVCONT (22:39)
[2025-04-06] VITALS (11 sets, daily range): BP systolic 90–154; BP diastolic 43–91; PULSE 69–91; RESP 12–20; TEMP 36.2–37.1; O2SAT 98–99; BMI 18.4
--- NOTE | 2025-04-06 | ECG_ITS ---
Test Reason : QTC CHECK Blood Pressure : */* mmHG Vent. Rate : 74 BPM Atrial Rate : 74 BPM P-R Int : 116 ms QRS Dur : 82 ms QT Int : 380 ms P-R-T Axes : 40 57 28 degrees QTcB Int : 421 ms Normal sinus rhythm Normal ECG When compared with ECG of 05-Apr-2025 15:14, No significant change was found Referred By: Kevin Gomes Electronically Signed By: DIAN ZARAGOZA MD
[2025-04-06 00:37] LABS: Glucose, Whole Blood 241 mg/dL (60-115)
[2025-04-06 02:09] LABS: Venous Blood Gas Refer to POC result
[2025-04-06 02:13] LABS: VBG Base Excess -4.5 mmol/L; VBG HCO3 21 mmol/L (22-26); VBG pCO2 40 mmHg; VBG pH 7.32 (7.32-7.43); VBG pO2 35 mmHg
[2025-04-06 02:25] LABS: Anion Gap 22 (12-20); Blood Urea Nitrogen 18 mg/dL (9-16); Calcium 9.4 mg/dL (8.4-10.2); Carbon Dioxide 19 mmol/L (22-29); Chloride 103 mmol/L (96-108); Creatinine Clr Calc Pharmacy 74.1; Estimated Glomerular Filt Rate > 60; Glucose Random 264 mg/dL (60-115); Potassium 4.7 mmol/L (3.3-5.1); Sodium 139 mmol/L (135-145)
[2025-04-06 03:13] LABS: Glucose, Whole Blood 266 mg/dL (60-115)
[2025-04-06] MEDS: Insulin Regular, Human 100 UNIT/ML 10 ML VIAL IVPUSH (03:43)
[2025-04-06] MEDS: Lactated Ringers 1,000 ML 999 ML IV (03:52)
--- NOTE | 2025-04-06 03:53 | PC.NURSE ---
prior bpstaken when pt was sleeping on his side. with pt on his bp BP within normal range- currently 107/63
[2025-04-06 05:54] LABS: Glucose, Whole Blood 200 mg/dL (60-115)
[2025-04-06 06:09] LABS: Venous Blood Gas Refer to POC result
--- NOTE | 2025-04-06 06:21 | PC.NURSE ---
medication administration delayed. Awaiting delivery of fluids. nursing asbestos textile supervisor looking on the floors at this time.
[2025-04-06 06:26] LABS: Anion Gap 19 (12-20); Blood Urea Nitrogen 17 mg/dL (9-16); Calcium 9.4 mg/dL (8.4-10.2); Carbon Dioxide 19 mmol/L (22-29); Chloride 104 mmol/L (96-108); Creatinine Clr Calc Pharmacy 78.8; Estimated Glomerular Filt Rate > 60; Glucose Random 200 mg/dL (60-115); Potassium 4.2 mmol/L (3.3-5.1); Sodium 138 mmol/L (135-145)
[2025-04-06 06:27] LABS: VBG Base Excess -5.9 mmol/L; VBG HCO3 18 mmol/L (22-26); VBG pCO2 33 mmHg; VBG pH 7.35 (7.32-7.43); VBG pO2 47 mmHg
[2025-04-06] MEDS: KCl 20 mEq in 0.45% Sod 20 MEQ/1,000 ML IV.SOLN 150 MEQ IVCONT (06:28)
--- NOTE | 2025-04-06 06:31 | PC.NURSE ---
brothlorena jack [phone], call with updates
[2025-04-06 06:40] LABS: Osmolality, Serum 293 mosm/kg (281-305)
[2025-04-06 06:47] LABS: Glucose, Whole Blood 220 mg/dL (60-115)
[2025-04-06 07:39] LABS: Glucose, Whole Blood 222 mg/dL (60-115)
[2025-04-06] MEDS: Metoclopramide HCl 10 MG/2 ML VIAL IVPUSH (07:45)
[2025-04-06] MEDS: diphenhydrAMINE HCL 50 MG/ML VIAL IVPUSH (07:45)
[2025-04-06] MEDS: Insulin Lispro 100 UNIT/ML 3 ML VIAL 10 UNIT SUBCUT (07:45)
[2025-04-06 07:46] LABS: Magnesium 1.7 mg/dL (1.6-2.6); Phosphorus 2.1 mg/dL (2.7-4.5)
[2025-04-06] MEDS: Dextrose 5 % and Lactated Ring 1,000 ML 125 ML IVCONT ×2 (07:54→17:02)
--- NOTE | 2025-04-06 08:51 | P.HPHOSP_ITS ---
History of Present Illness Date of Service: 04/06/25 Chief Complaint: abdominal pain The patient is a 45-year-old male with a past medical history of late onset type 1 diabetes, mild depression, cerebral palsy (spastic diplegic), gastroparesis, pancolitis, nephrolithiasis, GERD who presents to [facility] ED with complaints of periumbilical abdominal, nausea, vomiting for the last several days prior to hospitalization. He reports not taking his insulin as prescribed during these episodes. Due to ongoing symptoms, the patient presented to the emergency room. Per ED provider documentation, recently lost his brother and has been dealing with grief. There are no reports of sick contacts. The patient denies any hematochezia or hematemesis. He denies any fevers or chills. On initial workup in the emergency room the patient was found to be in DKA with an initial pH of 7.26 and a bicarb of 18. Anion gap was 24. Beta hydroxybutyrate was positive as well. The patient was treated with IV insulin IV fluids IV antiemetics with improvement in his chemistries. He has been transitioned to subcu insulin and now will be admitted for further care. Patient is seen and examined in the emergency room around 08:30 on 04/06. The patient reports ongoing periumbilical pain. He reports nausea with dry heaving. He denies any diarrhea. Review of Systems 2 Review of Systems: Negative except HPI/interval history. 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 Surgical History History of surgery on lower extremity Hx of foot surgery Hx of esophagitis History of esophagogastroduodenoscopy (EGD) 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 have visiting nurse or other home services: Yes ([employer]NICIAN) Alcohol intake: current Alcohol intake frequency: holidays/special occasions only Alcohol type: beer Patient Tobacco Use Status: Former Tobacco user Tobacco use type: Cigarette e-Cigarette/Vaping Use: Never Used Second Hand Smoke Exposure: No Substance Use Type: Marijuana service: No Current occupational status: disabled Current occupation: rt handed Cognitive needs: Yes Hearing needs: No Vision needs: Yes Meds Allergies Allergy/AdvReac Type Severity Reaction Status Date / Time No Known Allergies Allergy Verified 04/05/25 14:51 Active Medications: Current Medications Dextrose (Dextrose 50 % 25 Gm/50 Ml Syringe) 25 gm IVPUSH Q30M PRN PRN Reason: BG < 70 Dextrose (Dextrose 50 % 25 Gm/50 Ml Syringe) 25 gm IVPUSH Q15M PRN; Protocol PRN Reason: per Hypoglycemia Standing Ord. Glucose (Glucose Gel 15 Gm Gel..Gram.) 15 gm PO Q15M PRN; Protocol PRN Reason: per Hypoglycemia Standing Ord. Dextrose/Lactated Ringer's (D5lr) 1,000 mls @ 125 mls/hr IVCONT .Q8H [facility] Last Admin: 04/06/25 07:54 Dose: 125 mls/hr Insulin Glargine (Insulin Glargine,Hum.Rec.Anlog 100 Unit/Ml 10 Ml Vial) 20 unit SUBCUT DAILY@0900 [facility] Insulin Human Lispro (Insulin Lispro 100 Unit/Ml 3 Ml Vial) 0 unit SUBCUT QIDACHS [facility]; Protocol Home Medications ?Medication ?Instructions ?Recorded ?Confirmed ?Last Taken ?Type glipizide 5 mg tablet 5 mg PO DAILY 11/30/24 04/06/25 04/01/25 History amlodipine 5 mg tablet 5 mg PO DAILY 04/06/25 04/06/25 04/01/25 History cyclobenzaprine 5 mg tablet 5 mg PO BEDTIME PRN Muscle Spasm 04/06/25 04/06/25 Unknown History glucagon 3 mg/actuation nasal 3 mg intranasal USEASDIRECTD PRN 04/06/25 04/06/25 04/01/25 History spray (Baqsimi) Hypocalcemia insulin glargine 100 unit/mL (3 15 unit subcut DAILY 04/06/25 04/06/25 04/01/25 History mL) subcutaneous pen (Lantus Solostar U-100 Insulin) omeprazole 40 mg capsule,delayed 40 mg PO BID@0630,1630 04/06/25 04/06/25 04/01/25 History release Physical Exam 2 Vital Signs and Narrative: Vital Signs: Last Vital Signs Temp 97.9 F 04/06/25 07:32 Pulse 79 04/06/25 07:32 Resp 17 04/06/25 07:32 BP 136/62 04/06/25 07:32 Pulse Ox 99 04/06/25 07:32 O2 Del Method Room Air 04/06/25 07:32 BMI result Body Mass Index 18.0 Const: Other: Constitutional - Awake and Alert, appears uncomfortable Eyes - PERRLA, EOMI Cardiovascular - S1S2, RRR, No edema Respiratory - Normal lung expansion, Normal respiratory effort, No respiratory distress, CTA bilaterally Gastrointestinal - soft with mid abd TTP without rebound - No CVA tenderness Extremities - no calf tenderness bilaterally, no swelling Skin - Warm/Dry Neurological - Alert & oriented x3 Psychological - Appropriate affect Results Labs 04/05/25 15:31 04/08/25 06:44 Labs: Laboratory Results - last 24 hr 04/05/25 04/05/25 04/05/25 15:31 15:39 18:14 MCV 88.1 MCH 31.4 MCHC 35.6 RDW 11.7 Plt Count 308 D MPV 9.2 L Immature Gran % (Auto) 0.5 H Neut % (Auto) 77.4 H Lymph % (Auto) 18.7 L Curry % (Auto) 2.8 Eos % (Auto) 0.1 Baso % (Auto) 0.5 Lymph # (Auto) 2.0 Curry # (Auto) 0.3 Eos # (Auto) 0.0 Baso # (Auto) 0.1 Abs Immat Gran (auto) 0.05 H Absolute Neuts (auto) 8.4 H Absolute Nucleated RBC 0.000 Nucleated RBC % (auto) 0.0 VBG pH 7.25 L VBG pCO2 55 VBG pO2 49 VBG HCO3 24 VBG O2 Saturation 60.0 VBG Base Excess -3.5 Anion Gap 21 H Estim Creat Clear Calc 68.3 Estimated GFR > 60 POC Glucose Random Glucose 441 H* Osmolality Lactic Acid 4.0 H* Lactic Acid F/U @ 2Hr Lactic Acid F/U @ 4Hr Calcium 10.1 D Phosphorus Magnesium 2.1 Total Bilirubin 1.4 H Direct Bilirubin 0.3 AST 25 ALT 35 Alkaline Phosphatase 96 Total Protein 8.7 H Albumin 5.3 H Lipase 8 Beta-Hydroxybutyrate 2.92 H Urine Color Yellow Urine Appearance Clear Urine pH 5.5 Ur Specific [place] >= 1.030 H Urine Protein 100 (2+) H Urine Glucose (UA) >=1000 H Urine Ketones 80 Urine Blood Small (1+) H Urine Nitrite Negative Ur Leukocyte Esterase Negative Urine RBC 6-10 H Urine WBC 0-5 Ur Squamous Epith Cells 0-2 Urine Bacteria None Seen Hyaline Casts 0-2 Influenza Type A (PCR) NEGATIVE Influenza Type B (PCR) NEGATIVE RSV RNA Qual (PCR) NEGATIVE SARS-CoV-2 RNA (RT-PCR) NEGATIVE 04/05/25 04/05/25 04/05/25 18:56 21:06 21:48 MCV MCH MCHC RDW Plt Count MPV Immature Gran % (Auto) Neut % (Auto) Lymph % (Auto) Curry % (Auto) Eos % (Auto) Baso % (Auto) Lymph # (Auto) Curry # (Auto) Eos # (Auto) Baso # (Auto) Abs Immat Gran (auto) Absolute Neuts (auto) Absolute Nucleated RBC Nucleated RBC % (auto) VBG pH VBG pCO2 VBG pO2 VBG HCO3 VBG O2 Saturation VBG Base Excess Anion Gap 24 H Estim Creat Clear Calc 73.2 Estimated GFR > 60 POC Glucose 386 H* Random Glucose 391 H* Osmolality Lactic Acid Lactic Acid F/U @ 2Hr 2.7 H* Lactic Acid F/U @ 4Hr 2.6 H* Calcium 9.4 D Phosphorus Magnesium Total Bilirubin Direct Bilirubin AST ALT Alkaline Phosphatase Total Protein Albumin Lipase Beta-Hydroxybutyrate Urine Color Urine Appearance Urine pH Ur Specific [place] Urine Protein Urine Glucose (UA) Urine Ketones Urine Blood Urine Nitrite Ur Leukocyte Esterase Urine RBC Urine WBC Ur Squamous Epith Cells Urine Bacteria Hyaline Casts Influenza Type A (PCR) Influenza Type B (PCR) RSV RNA Qual (PCR) SARS-CoV-2 RNA (RT-PCR) 04/05/25 04/05/25 04/06/25 21:55 22:07 00:34 MCV MCH MCHC RDW Plt Count MPV Immature Gran % (Auto) Neut % (Auto) Lymph % (Auto) Curry % (Auto) Eos % (Auto) Baso % (Auto) Lymph # (Auto) Curry # (Auto) Eos # (Auto) Baso # (Auto) Abs Immat Gran (auto) Absolute Neuts (auto) Absolute Nucleated RBC Nucleated RBC % (auto) VBG pH 7.26 L VBG pCO2 40 VBG pO2 51 VBG HCO3 18 L VBG O2 Saturation 73.0 VBG Base Excess -8.1 Anion Gap Estim Creat Clear Calc Estimated GFR POC Glucose 347 H 241 H Random Glucose Osmolality Lactic Acid Lactic Acid F/U @ 2Hr Lactic Acid F/U @ 4Hr Calcium Phosphorus Magnesium Total Bilirubin Direct Bilirubin AST ALT Alkaline Phosphatase Total Protein Albumin Lipase Beta-Hydroxybutyrate Urine Color Urine Appearance Urine pH Ur Specific [place] Urine Protein Urine Glucose (UA) Urine Ketones Urine Blood Urine Nitrite Ur Leukocyte Esterase Urine RBC Urine WBC Ur Squamous Epith Cells Urine Bacteria Hyaline Casts Influenza Type A (PCR) Influenza Type B (PCR) RSV RNA Qual (PCR) SARS-CoV-2 RNA (RT-PCR) 04/06/25 04/06/25 04/06/25 02:04 02:10 03:07 MCV MCH MCHC RDW Plt Count MPV Immature Gran % (Auto) Neut % (Auto) Lymph % (Auto) Curry % (Auto) Eos % (Auto) Baso % (Auto) Lymph # (Auto) Curry # (Auto) Eos # (Auto) Baso # (Auto) Abs Immat Gran (auto) Absolute Neuts (auto) Absolute Nucleated RBC Nucleated RBC % (auto) VBG pH 7.32 VBG pCO2 40 VBG pO2 35 VBG HCO3 21 L VBG O2 Saturation 48.0 VBG Base Excess -4.5 Anion Gap 22 H Estim Creat Clear Calc 74.1 Estimated GFR > 60 POC Glucose 266 H Random Glucose 264 H Osmolality Lactic Acid Lactic Acid F/U @ 2Hr Lactic Acid F/U @ 4Hr Calcium 9.4 Phosphorus Magnesium Total Bilirubin Direct Bilirubin AST ALT Alkaline Phosphatase Total Protein Albumin Lipase Beta-Hydroxybutyrate Urine Color Urine Appearance Urine pH Ur Specific [place] Urine Protein Urine Glucose (UA) Urine Ketones Urine Blood Urine Nitrite Ur Leukocyte Esterase Urine RBC Urine WBC Ur Squamous Epith Cells Urine Bacteria Hyaline Casts Influenza Type A (PCR) Influenza Type B (PCR) RSV RNA Qual (PCR) SARS-CoV-2 RNA (RT-PCR) 0504/06/25 04/06/25 05:50 06:02 06:10 MCV MCH MCHC RDW Plt Count MPV Immature Gran % (Auto) Neut % (Auto) Lymph % (Auto) Curry % (Auto) Eos % (Auto) Baso % (Auto) Lymph # (Auto) Curry # (Auto) Eos # (Auto) Baso # (Auto) Abs Immat Gran (auto) Absolute Neuts (auto) Absolute Nucleated RBC Nucleated RBC % (auto) VBG pH 7.35 VBG pCO2 33 VBG pO2 47 VBG HCO3 18 L VBG O2 Saturation 74.0 VBG Base Excess -5.9 Anion Gap 19 Estim Creat Clear Calc 78.8 Estimated GFR > 60 POC Glucose 200 H Random Glucose 200 H Osmolality 293 Lactic Acid Lactic Acid F/U @ 2Hr Lactic Acid F/U @ 4Hr Calcium 9.4 Phosphorus 2.1 L Magnesium 1.7 Total Bilirubin Direct Bilirubin AST ALT Alkaline Phosphatase Total Protein Albumin Lipase Beta-Hydroxybutyrate Urine Color Urine Appearance Urine pH Ur Specific [place] Urine Protein Urine Glucose (UA) Urine Ketones Urine Blood Urine Nitrite Ur Leukocyte Esterase Urine RBC Urine WBC Ur Squamous Epith Cells Urine Bacteria Hyaline Casts Influenza Type A (PCR) Influenza Type B (PCR) RSV RNA Qual (PCR) SARS-CoV-2 RNA (RT-PCR) 04/06/25 04/06/25 06:44 07:35 MCV MCH MCHC RDW Plt Count MPV Immature Gran % (Auto) Neut % (Auto) Lymph % (Auto) Curry % (Auto) Eos % (Auto) Baso % (Auto) Lymph # (Auto) Curry # (Auto) Eos # (Auto) Baso # (Auto) Abs Immat Gran (auto) Absolute Neuts (auto) Absolute Nucleated RBC Nucleated RBC % (auto) VBG pH VBG pCO2 VBG pO2 VBG HCO3 VBG O2 Saturation VBG Base Excess Anion Gap Estim Creat Clear Calc Estimated GFR POC Glucose 220 H 222 H Random Glucose Osmolality Lactic Acid Lactic Acid F/U @ 2Hr Lactic Acid F/U @ 4Hr Calcium Phosphorus Magnesium Total Bilirubin Direct Bilirubin AST ALT Alkaline Phosphatase Total Protein Albumin Lipase Beta-Hydroxybutyrate Urine Color Urine Appearance Urine pH Ur Specific [place] Urine Protein Urine Glucose (UA) Urine Ketones Urine Blood Urine Nitrite Ur Leukocyte Esterase Urine RBC Urine WBC Ur Squamous Epith Cells Urine Bacteria Hyaline Casts Influenza Type A (PCR) Influenza Type B (PCR) RSV RNA Qual (PCR) SARS-CoV-2 RNA (RT-PCR) Assessment and Plan (1) Abdominal pain: Status: Acute Plan 45 yo M with a history of late onset DM type 1, gastroparesis, depression, CP and others who presents with abdominal pain, n/v/d with missed doses of baseline insulin resulting in DKA. 1. DKA s/p IV insulin + fluids in the ED chem now improved, being transitioned to subcut insulin continue POC QIDAC + sliding scale + lantus monitor lytles IVF with D5LR 2. Periumbilical abdominal pain clnically belly is soft, but continues to endorse pain and inability to tolerate PO will check CT abd IV analgesics and IV antiemetics ? if related to gastroparesis 3. history of gastroparesis see #2 will give IV relgan for now 4. HLD statin Quality Stroke Does the patient have a stroke diagnosis?: No VTE Prior VTE?: No VTE Risk Level:: Medical - moderate - high VTE Device Contraindication: N/A - Device Ordered VTE Drug Contraindication: N/A - Med Ordered
--- NOTE | 2025-04-06 09:17 | PHA.MEDREC ---
Addendum entered by Tyrese Bailey PharmD 04/06/25 09:25: reviewed Original Note: Pharmacy Consult ? Medication Reconciliation Pharmacy has completed the medication reconciliation. Spoke to patient to confirm med list. Patient was able to tell me yes or no when I named his medications. Patient confirmed Insulin Aspart and Lantus , however he doesn't remember how many units he injects. called [facility] to confirm Insulin Aspart 5 units TID and Lantus was last filled 03/31/24 with 15 units daily. patient states he hasn't had his medications in a few days.
--- NOTE | 2025-04-06 09:33 | MHC.CLN ---
NUTRITION PATIENT CURRENTLY IN ED. BMI=18 AND IS 81% IBW. CLINICAL NUTRITION ASSESSMENT TO BE COMPLETED UPON ADM TO UNIT.
--- NOTE | 2025-04-06 09:55 | MHC.CM.PN ---
IMM 04/06/25, Pt lives alone, he has [employer] services for 19 hrs a week. For DME, he uses crutches. PCP confirmed: Isabell Borrego. HCP is on file and confirmed: Eils Alexander. Pt. can arrange transport home at [place]. DCP: home with services. CM to follow for DC needs.
[2025-04-06] MEDS: Enoxaparin Sodium 40 MG/0.4 ML SYRINGE SUBCUT (10:20)
[2025-04-06] MEDS: ondansetron HCL 4 MG/2 ML VIAL IVPUSH ×2 (10:20→16:54)
[2025-04-06] MEDS: Famotidine/PF 20 MG/2 ML VIAL IVPUSH ×2 (10:48→21:39)
[2025-04-06] MEDS: Morphine Sulfate 2 MG/ML CARTRIDGE IVPUSH ×2 (10:48→14:33)
[2025-04-06 12:03] LABS: Glucose, Whole Blood 167 mg/dL (60-115)
[2025-04-06 12:45] LABS: Anion Gap 13 (12-20); Blood Urea Nitrogen 14 mg/dL (9-16); Calcium 8.6 mg/dL (8.4-10.2); Carbon Dioxide 23 mmol/L (22-29); Chloride 105 mmol/L (96-108); Creatinine Clr Calc Pharmacy 91.8; Estimated Glomerular Filt Rate > 60; Glucose Random 176 mg/dL (60-115); Potassium 3.6 mmol/L (3.3-5.1); Sodium 137 mmol/L (135-145)
[2025-04-06 13:53] LABS: Glucose, Whole Blood 234 mg/dL (60-115)
[2025-04-06] MEDS: Insulin Lispro 100 UNIT/ML 3 ML VIAL SUBCUT ×3 (14:33→21:39)
[2025-04-06 16:32] LABS: Glucose, Whole Blood 213 mg/dL (60-115)
[2025-04-06] MEDS: 0.9 % Sodium Chloride Flush 3 ML SYRINGE IVFLUSH (16:57)
[2025-04-06] MEDS: Omeprazole 40 MG CAPSULE.DR PO (16:59)
[2025-04-06 21:13] LABS: Glucose, Whole Blood 180 mg/dL (60-115)
[2025-04-06] MEDS: Morphine Sulfate 2 MG/ML CARTRIDGE 4 MG IVPUSH (21:39)
[2025-04-07] VITALS (7 sets, daily range): BP systolic 119–189; BP diastolic 63–96; PULSE 67–99; RESP 16–18; TEMP 36.4–37.7; O2SAT 97–99; BMI 18.4
[2025-04-07] MEDS: Omeprazole 40 MG CAPSULE.DR PO ×2 (04:44→16:37)
[2025-04-07] MEDS: Morphine Sulfate 2 MG/ML CARTRIDGE 4 MG IVPUSH ×3 (04:45→20:39)
[2025-04-07] MEDS: ondansetron HCL 4 MG/2 ML VIAL IVPUSH ×2 (05:01→16:37)
[2025-04-07 06:49] LABS: Venous Blood Gas Refer to POC result
[2025-04-07 06:51] LABS: VBG Base Excess 0.4 mmol/L; VBG HCO3 25 mmol/L (22-26); VBG pCO2 41 mmHg; VBG pH 7.39 (7.32-7.43); VBG pO2 39 mmHg
[2025-04-07 07:13] LABS: Blood Urea Nitrogen 12 mg/dL (9-16); Creatinine Clr Calc Pharmacy 84.8; Estimated Glomerular Filt Rate > 60; Glucose Random 284 mg/dL (60-115); Magnesium 1.5 mg/dL (1.6-2.6); Phosphorus 2.4 mg/dL (2.7-4.5)
[2025-04-07 07:20] LABS: Anion Gap 18 (12-20); Carbon Dioxide 23 mmol/L (22-29); Chloride 102 mmol/L (96-108); Potassium 4.4 mmol/L (3.3-5.1); Sodium 139 mmol/L (135-145)
[2025-04-07] MEDS: 0.9 % Sodium Chloride Flush 3 ML SYRINGE IVFLUSH (08:12)
[2025-04-07] MEDS: Dextrose 5 % and Lactated Ring 1,000 ML 125 ML IVCONT ×2 (08:12→16:38)
[2025-04-07] MEDS: Cholecalciferol (Vitamin D3) 25 MCG TABLET 50 MCG PO (08:12)
[2025-04-07] MEDS: Famotidine/PF 20 MG/2 ML VIAL IVPUSH ×2 (08:12→20:43)
[2025-04-07] MEDS: amLODIPine Besylate 5 MG TABLET PO (08:13)
[2025-04-07] MEDS: Pyridoxine HCl (Vitamin B6) 50 MG TABLET PO (08:13)
[2025-04-07] MEDS: Insulin Glargine,Hum.rec.anlog 100 UNIT/ML 10 ML VIAL 20 UNIT SUBCUT (08:13)
[2025-04-07] MEDS: Insulin Lispro 100 UNIT/ML 3 ML VIAL SUBCUT ×3 (08:13→16:37)
[2025-04-07] MEDS: Enoxaparin Sodium 40 MG/0.4 ML SYRINGE SUBCUT (08:14)
[2025-04-07] MEDS: Metoclopramide HCl 10 MG/2 ML VIAL IVPUSH (11:24)
[2025-04-07] MEDS: Magnesium Sulfate/H2O 2 GM/50 ML PIGGYBACK IV (11:24)
--- NOTE | 2025-04-07 11:26 | MHC.CLN ---
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
[2025-04-07 11:32] LABS: Glucose, Whole Blood 202 mg/dL (60-115)
--- NOTE | 2025-04-07 12:30 | P.PNIM_ITS ---
Subjective Subjective Date of Service: 04/07/25 Interval History: seen and examined this morning follow up for DKA Reporting ongoing nausea, unable to tolerate diet Review of Systems Review of Systems: Yes all other systems are reviewed and are negative Constitutional Constitutional: Denies chills and Denies fever(s) Gastrointestinal Gastrointestinal: Reports nausea Physical Exam 2 Vital Signs: Vital Signs: Last Vital Signs Temp 99.8 F 04/07/25 11:22 Pulse 84 04/07/25 11:22 Resp 18 04/07/25 11:22 BP 135/81 04/07/25 11:22 Pulse Ox 98 04/07/25 11:22 O2 Del Method Room Air 04/07/25 11:22 BMI result Body Mass Index 18.4 Const: General: cooperative, alert and awake Nutritional Appearance: a verage body habitus Orientation/consciousness: patient oriented x3 Resp: Effort & Inspection: no respiratory distress and no use of accessory muscles Cardio: Rate: regular rate GI: Inspection: No distended Palpation (GI): Soft to palpation Neuro: General: patient oriented x3 Objective Data Active Medications Acetaminophen (Acetaminophen 325 Mg Tablet) 650 mg PO Q6H PRN PRN Reason: Pain, Mild 1-3,fever,headache Amlodipine Besylate (Amlodipine Besylate 5 Mg Tablet) 5 mg PO DAILY BOBO; Protocol Last Admin: 04/07/25 08:13 Dose: 5 mg Documented By: TERE Calcium Carbonate (Calcium Carbonate 750 Mg Tab.Chew) 750 mg PO Q4H PRN PRN Reason: Heartburn Cyclobenzaprine HCl (Cyclobenzaprine Hcl 5 Mg Tablet) 5 mg PO BEDTIME PRN PRN Reason: Muscle Spasm Dextrose (Dextrose 50 % 25 Gm/50 Ml Syringe) 25 gm IVPUSH Q30M PRN PRN Reason: BG < 70 Dextrose (Dextrose 50 % 25 Gm/50 Ml Syringe) 25 gm IVPUSH Q15M PRN; Protocol PRN Reason: per Hypoglycemia Standing Ord. Enoxaparin Sodium (Enoxaparin Sodium 40 Mg/0.4 Ml Syringe) 40 mg SUBCUT Q24H COUNT INCLUDES THE [facility] Last Admin: 04/07/25 08:14 Dose: 40 mg Documented By: TERE Famotidine (Famotidine/Pf 20 Mg/2 Ml Vial) 20 mg IVPUSH BID COUNT INCLUDES THE [facility] Last Admin: 04/07/25 08:12 Dose: 20 mg Documented By: TERE Glucose (Glucose Gel 15 Gm Gel..Gram.) 15 gm PO Q15M PRN; Protocol PRN Reason: per Hypoglycemia Standing Ord. Dextrose/Lactated Ringer's (D5lr) 1,000 mls @ 125 mls/hr IVCONT .Q8H COUNT INCLUDES THE [facility] Last Infusion: 04/07/25 11:45 Dose: 0 mls/hr Documented By: TERE Magnesium Sulfate (Magnesium Sulfate/H2o) 2 gm in 50 mls @ 25 mls/hr IV ONCE ONE Stop: 04/07/25 12:32 Last Infusion: 04/07/25 11:45 Dose: 0 mls/hr Documented By: TERE Insulin Glargine (Insulin Glargine,Hum.Rec.Anlog 100 Unit/Ml 10 Ml Vial) 20 unit SUBCUT DAILY@0900 COUNT INCLUDES THE [facility] Last Admin: 04/07/25 08:13 Dose: 20 unit Documented By: TERE Insulin Human Lispro (Insulin Lispro 100 Unit/Ml 3 Ml Vial) 0 unit SUBCUT QIDACHS COUNT INCLUDES THE [facility]; Protocol Last Admin: 04/07/25 11:24 Dose: 4 unit Documented By: TERE Comments: POC 202 Magnesium Hydroxide (Milk Of Magnesia 30 Ml Oral.Susp) 30 ml PO DAILY PRN PRN Reason: Constipation Melatonin (Melatonin 3 Mg Tablet) 6 mg PO BEDTIME PRN PRN Reason: Insomnia Metoclopramide HCl (Metoclopramide Hcl 10 Mg/2 Ml Vial) 10 mg IVPUSH Q6H PRN PRN Reason: Nausea and Vomiting Last Admin: 04/07/25 11:24 Dose: 10 mg Documented By: TERE Morphine Sulfate (Morphine Sulfate 2 Mg/Ml Cartridge) 4 mg IVPUSH Q4H PRN; Protocol PRN Reason: Pain, Severe (Pain Scale 7-10) Last Admin: 04/07/25 04:45 Dose: 4 mg Documented By: DILCIA Omeprazole (Omeprazole 40 Mg Capsule.) 40 mg PO BID@0630,1630 COUNT INCLUDES THE [facility] Last Admin: 04/07/25 04:44 Dose: 40 mg Documented By: DILCIA Ondansetron HCl (Ondansetron Hcl 4 Mg/2 Ml Vial) 4 mg IVPUSH Q6H PRN PRN Reason: Nausea and Vomiting Last Admin: 04/07/25 05:01 Dose: 4 mg Documented By: DILCIA Polyethylene Glycol (Polyethylene Glycol 3350 17 Gm Powd.Pack) 17 gm PO DAILY COUNT INCLUDES THE [facility] Pyridoxine HCl (Pyridoxine Hcl (Vitamin B6) 50 Mg Tablet) 50 mg PO DAILY COUNT INCLUDES THE [facility] Last Admin: 04/07/25 08:13 Dose: 50 mg Documented By: TERE Sodium Chloride (0.9 % Sodium Chloride Flush 3 Ml Syringe) 3 ml IVFLUSH QSHIFT COUNT INCLUDES THE [facility] Last Admin: 04/07/25 08:12 Dose: 3 ml Documented By: TERE Vitamin D (Cholecalciferol (Vitamin D3) 25 Mcg Tablet) 50 mcg PO DAILY COUNT INCLUDES THE [facility] Last Admin: 04/07/25 08:12 Dose: 50 mcg Documented By: TERE Labs 04/05/25 15:31 04/07/25 06:37 Labs: Laboratory Results - last 24 hr 04/06/25 04/06/25 04/06/25 12:23 13:49 16:29 Hold Purple Top VBG pH VBG pCO2 VBG pO2 VBG HCO3 VBG O2 Saturation VBG Base Excess Anion Gap 13 Estim Creat Clear Calc 91.8 Estimated GFR > 60 POC Glucose 234 H 213 H Random Glucose 176 H Calcium 8.6 D Phosphorus Magnesium 04/06/25 04/07/25 04/07/25 21:09 06:37 06:41 Hold Purple Top SEE NOTE VBG pH 7.39 VBG pCO2 41 VBG pO2 39 VBG HCO3 25 VBG O2 Saturation 66.0 VBG Base Excess 0.4 Anion Gap 18 Estim Creat Clear Calc 84.8 Estimated GFR > 60 POC Glucose 180 H Random Glucose 284 H Calcium 9.0 Phosphorus 2.4 L Magnesium 1.5 L 04/07/25 11:14 Hold Purple Top VBG pH VBG pCO2 VBG pO2 VBG HCO3 VBG O2 Saturation VBG Base Excess Anion Gap Estim Creat Clear Calc Estimated GFR POC Glucose 202 H Random Glucose Calcium Phosphorus Magnesium Assessment and Plan (1) Diabetic gastroparesis: Status: Acute (2) Diabetic keto-acidosis: Status: Acute (3) Nausea & vomiting: Status: Acute (4) Diabetes mellitus with gastroparesis: Status: Acute Plan 45 yo M with a history of late onset DM type 1, gastroparesis, depression, CP and others who presents with abdominal pain, n/v/d with missed doses of baseline insulin resulting in DKA. DKA s/p IV insulin + fluids in the ED chem now improved, being transitioned to subcut insulin continue POC QIDAC + sliding scale + lantus monitor lytles IVF with D5LR Periumbilical abdominal pain clinically belly is soft, but continues to endorse pain and inability to tolerate PO CT abdomen with nonobstructing kidney stones, possible constipation otherwise unremarkable IV analgesics and IV antiemetics ? if related to gastroparesis history of gastroparesis see #2 will give IV relgan for now If persists we will consider GI evaluation HLD statin DVT prophylaxis-Lovenox Quality Stroke Does the patient have a stroke diagnosis?: No VTE Prior VTE?: No VTE Risk Level:: Medical - moderate - high VTE Device Contraindication: N/A - Device Ordered VTE Drug Contraindication: N/A - Med Ordered
[2025-04-07 12:59] LABS: Amphetamine Screen Urine Not Detected (Not Detect); Barbiturates, Urine Not Detected (Not Detect); Benzodiazepines Screen Urine Not Detected (Not Detect); Buprenorphine Scr Not Detected (Not Detect); Cannabinoid Screen Urine POSITIVE (Not Detect); Cocaine Screen Urine Not Detected (Not Detect); Fentanyl, urine Not Detected (Not Detect); Methadone Screen, Urine Not Detected (Not Detect); Opiate Screen Urine Not Detected (Not Detect); Oxycodone Screen Urine Not Detected (Not Detect); Phencyclidine Screen Urine Not Detected (Not Detect)
--- NOTE | 2025-04-07 14:11 | P.CNGI_ITS ---
History of Present Illness Data of Consult Service Date: 04/07/25 Requesting physician: Kimberlyn Mendez Primary Care Provider: Isabell Young MD HPI Reason for consult: n/v/abd pain; diabetic 45 YM with late onset type 1 diabetes, mild depression, cerebral palsy (spastic diplegic), gastroparesis, pancolitis, nephrolithiasis, GERD seen at [facility] [place] ED on 04/06/25 with complaints of periumbilical abdominal, nausea, vomiting for the last several days prior to hospitalization. He reports not taking his insulin as prescribed during these episodes. Pt complains of 9/10 abdominal pain and intermittent nausea and vomiting and unable to tolerate PO diet. Per ED provider documentation, recently lost his brother and has been dealing with grief. There are no reports of sick contacts. The patient admits to smoking weed for pain and denies smoking cigarettes or ETOH abuse. Pt admits to loosing weight and denied any hematochezia or hematemesis, fevers or chills. Labs in the ED showed DKA with an initial pH of 7.26 and a bicarb of 18. Anion gap was 24. Beta hydroxybutyrate was positive as well. The patient was treated with IV insulin IV fluids IV antiemetics with improvement in his chemistries. He has been transitioned to subcu insulin and admitted for further care. The patient reports ongoing periumbilical pain. He reports nausea with dry heaving. He denies any diarrhea 04/06/[address] SCAN SHOWED: 1. Bilateral nephrolithiasis as described, without evidence of ureteral obstruction. Bilateral renal cysts, many of which are hyperdense as seen previously. 2. Limited evaluation of the bowel due to lack of intravenous and oral contrast material. PAST GI HISTORY BY REVIEW OF MEDICAL RECORDS: Esophagitis, pyloric stricture, and gastroparesis documented on previous nuclear medicine gastric emptying study. Cerebral palsy with several surgeries on his lower extremities. 02/2024 COLONOSCOPY SHOWED: diverticulosis colon polyp internal hemorrhoids Plan: High fiber diet leaflet Avoid straining at stool, epsom salts and sitz bath, anusol supps or cream Repeat Colonoscopy in 5-7 years due to adenomatous appearing polyp or earlier if clinically indicated 03/2023 EGD SHOWED: Impression/Findings: possible barretts gastritis hiatal hernia PLAN: reflux precautions overall improved, cont with PPI A. Stomach, biopsy: Gastric antral mucosa with congestion, mild reactive changes, and focal minimal chronic inactive inflammation; negative for H pylori, intestinal metaplasia and dysplasia. B. Gastroesophageal junction, biopsy: Squamocolumnar and cardia-fundic gastric type mucosa with mild chronic inactive inflammation; negative for intestinal metaplasia and dysplasia 01/2022 EGD SHOWED: Endoscopy Findings: ESOPHAGUS: Severe erosive esophagitis with white exudate from 28 to 35 cms likely due to GERD and gastroparesis.? GE junction at 35 cms, small hiatal hernia 35 to 37 cms. STOMACH:? Mild gastritis - biopsies obtained to check for H pylori. Plan: Resume high dose PPI twice daily for GERD. 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) Alcohol intake: current Alcohol intake frequency: holidays/special occasions only Alcohol type: beer Patient Tobacco Use Status: Former Tobacco user Tobacco use type: Cigarette e-Cigarette/Vaping Use: Never Used Second Hand Smoke Exposure: No Substance Use Type: Marijuana service: No Current occupational status: disabled Current occupation: rt handed Cognitive needs: Yes Hearing needs: No Vision needs: Yes Meds Allergies Allergy/AdvReac Type Severity Reaction Status Date / Time No Known Allergies Allergy Verified 04/05/25 14:51 Active Medications: Current Medications Acetaminophen (Acetaminophen 325 Mg Tablet) 650 mg PO Q6H PRN PRN Reason: Pain, Mild 1-3,fever,headache Amlodipine Besylate (Amlodipine Besylate 5 Mg Tablet) 5 mg PO DAILY [facility]; Protocol Last Admin: 04/07/25 08:13 Dose: 5 mg Calcium Carbonate (Calcium Carbonate 750 Mg Tab.Chew) 750 mg PO Q4H PRN PRN Reason: Heartburn Cyclobenzaprine HCl (Cyclobenzaprine Hcl 5 Mg Tablet) 5 mg PO BEDTIME PRN PRN Reason: Muscle Spasm Dextrose (Dextrose 50 % 25 Gm/50 Ml Syringe) 25 gm IVPUSH Q30M PRN PRN Reason: BG < 70 Dextrose (Dextrose 50 % 25 Gm/50 Ml Syringe) 25 gm IVPUSH Q15M PRN; Protocol PRN Reason: per Hypoglycemia Standing Ord. Docusate Sodium (Docusate Sodium 100 Mg Capsule) 100 mg PO BEDTIME BOBO Enoxaparin Sodium (Enoxaparin Sodium 40 Mg/0.4 Ml Syringe) 40 mg SUBCUT Q24H [facility] Last Admin: 04/07/25 08:14 Dose: 40 mg Famotidine (Famotidine/Pf 20 Mg/2 Ml Vial) 20 mg IVPUSH BID [facility] Last Admin: 04/07/25 08:12 Dose: 20 mg Glucose (Glucose Gel 15 Gm Gel..Gram.) 15 gm PO Q15M PRN; Protocol PRN Reason: per Hypoglycemia Standing Ord. Dextrose/Lactated Ringer's (D5lr) 1,000 mls @ 125 mls/hr IVCONT .Q8H [facility] Last Infusion: 04/07/25 13:09 Dose: 125 mls/hr Insulin Glargine (Insulin Glargine,Hum.Rec.Anlog 100 Unit/Ml 10 Ml Vial) 20 unit SUBCUT DAILY@0900 [facility] Last Admin: 04/07/25 08:13 Dose: 20 unit Insulin Human Lispro (Insulin Lispro 100 Unit/Ml 3 Ml Vial) 0 unit SUBCUT QIDACHS [facility]; Protocol Last Admin: 04/07/25 11:24 Dose: 4 unit Magnesium Hydroxide (Milk Of Magnesia 30 Ml Oral.Susp) 30 ml PO DAILY PRN PRN Reason: Constipation Melatonin (Melatonin 3 Mg Tablet) 6 mg PO BEDTIME PRN PRN Reason: Insomnia Metoclopramide HCl (Metoclopramide Hcl 10 Mg/2 Ml Vial) 10 mg IVPUSH Q6H PRN PRN Reason: Nausea and Vomiting Last Admin: 04/07/25 11:24 Dose: 10 mg Morphine Sulfate (Morphine Sulfate 2 Mg/Ml Cartridge) 4 mg IVPUSH Q4H PRN; Protocol PRN Reason: Pain, Severe (Pain Scale 7-10) Last Admin: 04/07/25 04:45 Dose: 4 mg Omeprazole (Omeprazole 40 Mg Capsule.Dr) 40 mg PO BID@0630,1630 [facility] Last Admin: 04/07/25 04:44 Dose: 40 mg Ondansetron HCl (Ondansetron Hcl 4 Mg/2 Ml Vial) 4 mg IVPUSH Q6H PRN PRN Reason: Nausea and Vomiting Last Admin: 04/07/25 05:01 Dose: 4 mg Polyethylene Glycol (Polyethylene Glycol 3350 17 Gm Powd.Pack) 17 gm PO DAILY [facility] Pyridoxine HCl (Pyridoxine Hcl (Vitamin B6) 50 Mg Tablet) 50 mg PO DAILY [facility] Last Admin: 04/07/25 08:13 Dose: 50 mg Sodium Chloride (0.9 % Sodium Chloride Flush 3 Ml Syringe) 3 ml IVFLUSH QSHIFT [facility] Last Admin: 04/07/25 08:12 Dose: 3 ml Vitamin D (Cholecalciferol (Vitamin D3) 25 Mcg Tablet) 50 mcg PO DAILY [facility] Last Admin: 04/07/25 08:12 Dose: 50 mcg Home Medications ?Medication ?Instructions ?Recorded ?Confirmed ?Last Taken ?Type glipizide 5 mg tablet 5 mg PO DAILY 11/30/24 04/06/25 04/01/25 History amlodipine 5 mg tablet 5 mg PO DAILY 04/06/25 04/06/25 04/01/25 History cyclobenzaprine 5 mg tablet 5 mg PO BEDTIME PRN Muscle Spasm 04/06/25 04/06/25 Unknown History glucagon 3 mg/actuation nasal 3 mg intranasal USEASDIRECTD PRN 04/06/25 04/06/25 04/01/25 History spray (Baqsimi) Hypocalcemia insulin glargine 100 unit/mL (3 15 unit subcut DAILY 04/06/25 04/06/25 04/01/25 History mL) subcutaneous pen (Lantus Solostar U-100 Insulin) omeprazole 40 mg capsule,delayed 40 mg PO BID@0630,1630 04/06/25 04/06/25 04/01/25 History release Physical Exam 2 Vital Signs: Vital Signs: Last Vital Signs Temp 99.8 F 04/07/25 11:22 Pulse 84 04/07/25 11:22 Resp 18 04/07/25 11:22 BP 135/81 04/07/25 11:22 Pulse Ox 98 04/07/25 11:22 O2 Del Method Room Air 04/07/25 11:22 BMI result Body Mass Index 18.4 Const: General: no acute distress and ill appearing (Chronically ill- appearing) Nutritional Appearance: underweight Orientation/consciousness: patient oriented x3 Limitations: no limitations HEENT: Head: Yes normal to inspection Ears: hearing grossly normal bilaterally Eyes: Sclerae: sclerae normal Pupils: Equal, round and reactive pupils present Neck: Neck: Yes normal visual inspection Chest: Chest palpation & inspection: normal inspection of the chest Resp: Effort & Inspection: normal respiratory effort Auscultation: clear to auscultation bilaterally Cardio: Palpation: normal PMI Rate: regular rate Rhythm: regular rhythm Heart sounds: S1 normal heart sound present, S2 normal heart sound present and no murmurs GI: Palpation (GI): Soft to palpation, nontender and No hepatosplenomegaly present Auscultation: normal bowel sounds Rectal Exam - Male: Yes deferred Skin: General skin exam: no rashes or lesions noted Neuro: General: patient oriented x3, gait normal and moves all extremities Cranial nerves: Yes Equal, round and reactive pupils present Psych: Appearance: grossly normal Mental Status: mental status grossly normal Results Labs 04/05/25 15:31 04/08/25 14:55 Labs: [facility] 04/07/25 06:37 Sodium 139 Potassium 4.4 D Chloride 102 Carbon Dioxide 23 BUN 12 Creatinine 0.74 Calcium 9.0 Assessment and Plan (1) Diabetic gastroparesis: Status: Acute (2) Abdominal pain: Status: Acute (3) Diabetic keto-acidosis: Qualifiers: Diabetes mellitus complication detail: without coma Status: Acute (4) Nausea & vomiting: Status: Acute Plan 45 YM with late onset type 1 diabetes, mild depression, cerebral palsy (spastic diplegic), gastroparesis, pancolitis, nephrolithiasis, GERD seen at [facility] [place] [facility] on 04/06/25 with complaints of periumbilical abdominal, nausea, vomiting for the last several days prior to hospitalization. He reports not taking his insulin as prescribed during these episodes. The patient admits to smoking weed for pain and denies smoking cigarettes or ETOH abuse. Labs in the ED showed DKA with an initial pH of 7.26 and a bicarb of 18. Anion gap was 24. Beta hydroxybutyrate was positive as well. The patient was treated with IV insulin IV fluids IV antiemetics with improvement in his chemistries. Nausea, vomiting and abd pain is likely multifactorial - related to DKA, gastroparesis +/- cannabis hyperemesis syndrome RECOMMENDATIONS: 1. Agree with IV PPI and antiemetics 2. Continue IV metoclopramide for gastroparesis 3. Resume PO as per DKA protocol 4. If symptoms do not improve, OK to switch to Erythromycin 250 mg IV TID 30 [address] meals in place of metoclopramide 5. EGD if abd pain and vomiting persist despite resolution of DKA. Procedures Date of Service Date of Service: 04/09/25
[2025-04-07 16:26] LABS: Glucose, Whole Blood 256 mg/dL (60-115)
[2025-04-07 20:34] LABS: Glucose, Whole Blood 138 mg/dL (60-115)
[2025-04-07] MEDS: Docusate Sodium 100 MG CAPSULE PO (20:44)
[2025-04-08] MEDS: Acetaminophen 325 MG TABLET 650 MG PO ×2 (00:30→08:24)
[2025-04-08] MEDS: Melatonin 3 MG TABLET 6 MG PO (00:31)
[2025-04-08] MEDS: Dextrose 5 % and Lactated Ring 1,000 ML 125 ML IVCONT (00:33)
[2025-04-08] MEDS: 0.9 % Sodium Chloride Flush 3 ML SYRINGE IVFLUSH (00:33)
[2025-04-08] MEDS: Morphine Sulfate 2 MG/ML CARTRIDGE 4 MG IVPUSH ×3 (00:35→10:30)
[2025-04-08 04:00] VITALS: BP 154/86; PULSE 79; RESP 18; TEMP 36.9; O2SAT 98
[2025-04-08] MEDS: Omeprazole 40 MG CAPSULE.DR PO ×2 (04:54→16:14)
[2025-04-08 07:26] VITALS: BP 158/89; PULSE 72; RESP 18; TEMP 36.9; O2SAT 98
[2025-04-08 07:35] LABS: Glucose, Whole Blood 314 mg/dL (60-115)
[2025-04-08] MEDS: Famotidine/PF 20 MG/2 ML VIAL IVPUSH ×2 (08:22→20:33)
[2025-04-08] MEDS: ondansetron HCL 4 MG/2 ML VIAL IVPUSH (08:22)
[2025-04-08] MEDS: Cholecalciferol (Vitamin D3) 25 MCG TABLET 50 MCG PO (08:23)
[2025-04-08] MEDS: Pyridoxine HCl (Vitamin B6) 50 MG TABLET PO (08:23)
[2025-04-08] MEDS: amLODIPine Besylate 5 MG TABLET PO (08:23)
[2025-04-08] MEDS: Enoxaparin Sodium 40 MG/0.4 ML SYRINGE SUBCUT (08:23)
[2025-04-08] MEDS: Insulin Lispro 100 UNIT/ML 3 ML VIAL SUBCUT (08:24)
[2025-04-08] MEDS: Insulin Glargine,Hum.rec.anlog 100 UNIT/ML 10 ML VIAL 20 UNIT SUBCUT (08:24)
[2025-04-08] MEDS: polyethylene glycoL 3350 17 GM POWD.PACK PO (08:25)
[2025-04-08] MEDS: Milk of Magnesia 30 ML ORAL.SUSP PO (08:26)
[2025-04-08 08:44] LABS: Anion Gap 14 (12-20); Blood Urea Nitrogen 4 mg/dL (9-16); Calcium 8.7 mg/dL (8.4-10.2); Carbon Dioxide 30 mmol/L (22-29); Chloride 98 mmol/L (96-108); Creatinine Clr Calc Pharmacy 102.9; Estimated Glomerular Filt Rate > 60; Glucose Random 299 mg/dL (60-115); Magnesium 1.7 mg/dL (1.6-2.6); Sodium 139 mmol/L (135-145)
[2025-04-08 08:52] LABS: Potassium 2.6 mmol/L (3.3-5.1)
[2025-04-08] MEDS: Potassium Chloride/H20 10 MEQ/100 ML PIGGYBACK 100 MEQ IV ×4 (10:30→15:03)
[2025-04-08] MEDS: Potassium Chloride ER 20 MEQ TAB.ER.PRT 40 MEQ PO (10:30)
[2025-04-08 10:43] LABS: Glucose, Whole Blood 284 mg/dL (60-115)
[2025-04-08 11:11] VITALS: BP 122/68; PULSE 91; RESP 16; TEMP 37.2; O2SAT 97
[2025-04-08 11:28] LABS: Glucose, Whole Blood 149 mg/dL (60-115)
--- NOTE | 2025-04-08 14:00 | MHC.CM.PN ---
EMR REVIEWED, PT W/DKA, GI PENDING, PER HOSPITALIST PLAN FOR REGLAN PRIOR TO MEALS AND POTASSIUM REPLACEMENT, NO PLAN FOR DC AT THIS TIME, CM WILL CONT TO FOLLOW DC NEEDS.
--- NOTE | 2025-04-08 14:44 | HO.PM.IMPN ---
Subjective Subjective Date of Service: 04/08/25 Interval History: Seen and examined this morning Not engaged in conversation, reporting lower back pain, reports chronic requesting hot pack Does not feel like eating no abdominal pain Review of Systems Negative except HPI/interval history. Review of Systems: Yes all other systems are reviewed and are negative Constitutional Constitutional: Denies chills and Denies fever(s) Cardiovascular Cardiovascular: Denies chest pain, Denies palpitations and Denies dyspnea Respiratory Respiratory: Denies cough and Denies dyspnea Gastrointestinal Gastrointestinal: Reports nausea Endocrine Endocrine: Denies palpitations Physical Exam Vital Signs: Vital Signs: Last Vital Signs Temp 98.9 F 04/08/25 11:11 Pulse 91 04/08/25 11:11 Resp 16 04/08/25 11:11 BP 122/68 04/08/25 11:11 Pulse Ox 97 04/08/25 11:11 O2 Del Method Room Air 04/08/25 11:11 BMI result Body Mass Index 18.4 Const: General: cooperative, alert and awake Nutritional Appearance: thin Orientation/consciousness: patient oriented x3 Resp: Effort & Inspection: no respiratory distress and no use of accessory muscles Cardio: Rate: regular rate GI: Inspection: No distended Palpation (GI): Soft to palpation Neuro: General: patient oriented x3 Objective Data Active Medications Acetaminophen (Acetaminophen 325 Mg Tablet) 650 mg PO Q6H PRN PRN Reason: Pain, Mild 1-3,fever,headache Last Admin: 04/08/25 08:24 Dose: 650 mg Documented By: TERE Amlodipine Besylate (Amlodipine Besylate 5 Mg Tablet) 5 mg PO DAILY [facility]; Protocol Last Admin: 04/08/25 08:23 Dose: 5 mg Documented By: TERE Calcium Carbonate (Calcium Carbonate 750 Mg Tab.Chew) 750 mg PO Q4H PRN PRN Reason: Heartburn Cyclobenzaprine HCl (Cyclobenzaprine Hcl 5 Mg Tablet) 5 mg PO BEDTIME PRN PRN Reason: Muscle Spasm Dextrose (Dextrose 50 % 25 Gm/50 Ml Syringe) 25 gm IVPUSH Q30M PRN PRN Reason: BG < 70 Dextrose (Dextrose 50 % 25 Gm/50 Ml Syringe) 25 gm IVPUSH Q15M PRN; Protocol PRN Reason: per Hypoglycemia Standing Ord. Docusate Sodium (Docusate Sodium 100 Mg Capsule) 100 mg PO BEDTIME [facility] Last Admin: 04/07/25 20:44 Dose: 100 mg Documented By: LOIS Enoxaparin Sodium (Enoxaparin Sodium 40 Mg/0.4 Ml Syringe) 40 mg SUBCUT Q24H [facility] Last Admin: 04/08/25 08:23 Dose: 40 mg Documented By: TERE Famotidine (Famotidine/Pf 20 Mg/2 Ml Vial) 20 mg IVPUSH BID [facility] Last Admin: 04/08/25 08:22 Dose: 20 mg Documented By: TERE Glucose (Glucose Gel 15 Gm Gel..Gram.) 15 gm PO Q15M PRN; Protocol PRN Reason: per Hypoglycemia Standing Ord. Insulin Glargine (Insulin Glargine,Hum.Rec.Anlog 100 Unit/Ml 10 Ml Vial) 20 unit SUBCUT DAILY@0900 [facility] Last Admin: 04/08/25 08:24 Dose: 20 unit Documented By: TERE Insulin Human Lispro (Insulin Lispro 100 Unit/Ml 3 Ml Vial) 0 unit SUBCUT QIDACHS [facility]; Protocol Last Admin: 04/08/25 12:25 Dose: Not Given Documented By: TERE Non-Admin Reason: No Insulin Coverage Magnesium Hydroxide (Milk Of Magnesia 30 Ml Oral.Susp) 30 ml PO DAILY PRN PRN Reason: Constipation Last Admin: 04/08/25 08:26 Dose: 30 ml Documented By: TERE Melatonin (Melatonin 3 Mg Tablet) 6 mg PO BEDTIME PRN PRN Reason: Insomnia Last Admin: 04/08/25 00:31 Dose: 6 mg Documented By: LOIS Metoclopramide HCl (Metoclopramide Hcl 10 Mg/2 Ml Vial) 10 mg IVPUSH TIDAC [facility] Morphine Sulfate (Morphine Sulfate 2 Mg/Ml Cartridge) 2 mg IVPUSH Q6H PRN; Protocol PRN Reason: Pain, Severe (Pain Scale 7-10) Omeprazole (Omeprazole 40 Mg Capsule.) 40 mg PO BID@0630,1630 [facility] Last Admin: 04/08/25 04:54 Dose: 40 mg Documented By: LOIS Ondansetron HCl (Ondansetron Hcl 4 Mg/2 Ml Vial) 4 mg IVPUSH Q6H PRN PRN Reason: Nausea and Vomiting Last Admin: 04/08/25 08:22 Dose: 4 mg Documented By: TERE Polyethylene Glycol (Polyethylene Glycol 3350 17 Gm Powd.Pack) 17 gm PO DAILY [facility] Last Admin: 04/08/25 08:25 Dose: 17 gm Documented By: TERE Pyridoxine HCl (Pyridoxine Hcl (Vitamin B6) 50 Mg Tablet) 50 mg PO DAILY [facility] Last Admin: 04/08/25 08:23 Dose: 50 mg Documented By: TERE Sodium Chloride (0.9 % Sodium Chloride Flush 3 Ml Syringe) 3 ml IVFLUSH QSHIFT [facility] Last Admin: 04/08/25 07:53 Dose: Not Given Documented By: TERE Non-Admin Reason: IV Running Vitamin D (Cholecalciferol (Vitamin D3) 25 Mcg Tablet) 50 mcg PO DAILY [facility] Last Admin: 04/08/25 08:23 Dose: 50 mcg Documented By: TERE Labs 04/05/25 15:31 04/08/25 06:44 Labs: Laboratory Results - last 24 hr 04/07/25 04/07/25 04/07/25 07:29 16:20 20:30 Hold Purple Top Anion Gap Estim Creat Clear Calc Estimated GFR POC Glucose 284 H 256 H 138 H Random Glucose Calcium Magnesium 04/08/25 04/08/25 04/08/25 06:44 07:24 11:21 Hold Purple Top SEE NOTE Anion Gap 14 Estim Creat Clear Calc 102.9 Estimated GFR > 60 POC Glucose 314 H 149 H Random Glucose 299 H Calcium 8.7 Magnesium 1.7 Assessment and Plan (1) Diabetic gastroparesis: Status: Acute Plan 45 yo M with a history of late onset DM type 1, gastroparesis, depression, CP and others who presents with abdominal pain, n/v/d with missed doses of baseline insulin resulting in DKA. DKA s/p IV insulin + fluids in the ED chem now improved, being transitioned to subcut insulin continue POC QIDAC + sliding scale + lantus monitor lytles IVF with D5LR Periumbilical abdominal pain CT unremarkable; mostly complaining of nausea ? if related to gastroparesis Scheduled premeal Reglan GI consult Hypokalemia Likely due to decreased p.o. intake IV/p.o. replacement Repeat this afternoon HLD statin Chronic back pain Continue Flexeril Wean narcotics Outpatient follow-up Moderate protein calorie malnutrition Supplements added to diet Quality Stroke Does the patient have a stroke diagnosis?: No VTE Prior VTE?: No VTE Risk Level:: Medical - moderate - high VTE Device Contraindication: N/A - Device Ordered VTE Drug Contraindication: N/A - Med Ordered
--- NOTE | 2025-04-08 14:50 | P.CDIM_ITS ---
PROVIDER RESPONSE TEXT: To clarify, the appropriate diagnosis supported by the clinical indicators: Malnutrition: moderate QUERY TEXT: PHYSICIAN'S DOCUMENTATION REQUEST Date of Query: 04/08/2025 07:01 AM EDT Patient Name: Wilman Huggins Admit Date: 04/06/2025 Dear Kimberlyn Mendez PA, A review of the medical record indicates additional documentation may be needed. Please review below and update the documentation accordingly. Clinical Indicators: Height: 5ft 4in Weight: 48.6kg BMI: 18.4 Other Clinical Notes Supporting Significance of the BMI: Clinical nutrition notes patient is moderate ly malnourished with mildly depleted subcutaneous fat and muscle mass with BMI 18 and noncompliance with insulin regime. Ensure clear recommend adding Magic Cup TID to increase Kcals and promote wt gain. If possible, please provide an associated diagnosis related to the abnormal BMI, such as: Underweight Malnutrition mild, moderate, severe Cachexia Anorexia BMI is not significant Other (explain) Clinically unable to determine (explain) Thank you, Sherlyn Sen, CCS, CDIS Use of terms such as suspected, likely, concern for, or probable (associated with a specific diagnosi s that is being evaluated, monitored, or treated as if it exists) are acceptable and can be coded in the inpatient se tting, when documented at the time of discharge. Please use your independent medical judgment in providing your response. THIS QUERY IS PART OF THE PERMANENT MEDICAL RECORD
--- NOTE | 2025-04-08 15:00 | MHC.CLN ---
F/U PT IS MODERATELY MALNOURISHED SEE ALSO FULL CLINICAL NUTRITION ASSESSMENT DATED 04/07/25 DIET RX: 2000DM -APPROPRIATE PT DISLIKES ENSURE SUPPLEMENT BUT WILL ACCEPT ENSURE CLEAR RECOMMEND RE-STARTING MAGIC CUP TID TO INCREASE KCALS AND PROMOTE WT GAIN SUPP TO PROVIDE 870KCALS, 27G PROTEIN MONITOR PO INTAKE, BS AND ENCOURAGE SUPPLEMENT
[2025-04-08 15:15] VITALS: BP 119/68; PULSE 80; RESP 18; TEMP 36.7; O2SAT 98
[2025-04-08 15:26] LABS: Potassium 3.2 mmol/L (3.3-5.1)
[2025-04-08] MEDS: Magnesium Sulfate/H2O 2 GM/50 ML PIGGYBACK IV (16:14)
[2025-04-08] MEDS: Morphine Sulfate 2 MG/ML CARTRIDGE IVPUSH ×2 (16:15→20:34)
[2025-04-08] MEDS: Metoclopramide HCl 10 MG/2 ML VIAL IVPUSH (16:22)
[2025-04-08 16:23] LABS: Glucose, Whole Blood 97 mg/dL (60-115)
[2025-04-08 19:34] VITALS: BP 177/80; PULSE 90; RESP 17; TEMP 36.9; O2SAT 98
[2025-04-08 20:30] LABS: Glucose, Whole Blood 129 mg/dL (60-115)
[2025-04-08] MEDS: Cyclobenzaprine HCl 5 MG TABLET PO (20:33)
[2025-04-08] MEDS: Potassium Chloride ER 20 MEQ TAB.ER.PRT PO (20:33)
[2025-04-08] MEDS: Docusate Sodium 100 MG CAPSULE PO (20:33)
[2025-04-08 23:53] VITALS: BP 135/74; PULSE 69; RESP 16; TEMP 36.9; O2SAT 99
[2025-04-09 03:32] VITALS: BP 123/70; PULSE 71; RESP 16; TEMP 36.8; O2SAT 98
[2025-04-09 08:00] VITALS: BP 120/76; PULSE 71; RESP 19; TEMP 37.1; O2SAT 100
[2025-04-09 08:30] LABS: Glucose, Whole Blood 226 mg/dL (60-115)
[2025-04-09] MEDS: 0.9 % Sodium Chloride Flush 3 ML SYRINGE IVFLUSH (11:10)
[2025-04-09] MEDS: Cholecalciferol (Vitamin D3) 25 MCG TABLET 50 MCG PO (11:13)
[2025-04-09] MEDS: Enoxaparin Sodium 40 MG/0.4 ML SYRINGE SUBCUT (11:13)
[2025-04-09] MEDS: amLODIPine Besylate 5 MG TABLET PO (11:13)
[2025-04-09] MEDS: Metoclopramide HCl 10 MG/2 ML VIAL IVPUSH (11:13)
[2025-04-09] MEDS: Famotidine/PF 20 MG/2 ML VIAL IVPUSH (11:13)
[2025-04-09] MEDS: Insulin Glargine,Hum.rec.anlog 100 UNIT/ML 10 ML VIAL 20 UNIT SUBCUT (11:13)
[2025-04-09] MEDS: Pyridoxine HCl (Vitamin B6) 50 MG TABLET PO (11:13)
[2025-04-09] MEDS: Insulin Lispro 100 UNIT/ML 3 ML VIAL SUBCUT (11:14)
[2025-04-09 11:18] LABS: Glucose, Whole Blood 259 mg/dL (60-115)
[2025-04-09 11:19] LABS: Potassium 3.6 mmol/L (3.3-5.1)
[2025-04-09 12:00] VITALS: BP 114/63; PULSE 79; RESP 19; TEMP 36.7; O2SAT 99
--- NOTE | 2025-04-09 13:14 | P.DS_ITS ---
DS: Providers Provider Date of Service: 04/09/25 Date of admission: 04/06/25 07:23 Date of discharge: 04/09/25 Primary care physician: Isabell Young MD Consults: 04/07/25 12:57 Consult to Gastroenterology Routine Consulting Provider: Jesse Cano Reason for consultation: n/v/abd pain; diabetic Has provider been notified: No Attending physician on discharge: Divya Healy Discharging clinician: Kimberlyn Mendez DS: Diagnosis Discharge Diagnosis (1) Diabetic gastroparesis: Status: Acute (2) Abdominal pain: Status: Acute (3) Diabetic keto-acidosis: Status: Acute (4) Nausea & vomiting: Status: Acute DS: Summary Hospital Course Hospital Course: From H&P on the day of admission The patient is a 45-year-old male with a past medical history of late onset type 1 diabetes, mild depression, cerebral palsy (spastic diplegic), gastroparesis, pancolitis, nephrolithiasis, GERD who presents to [facility] with complaints of periumbilical abdominal, nausea, vomiting for the last several days prior to hospitalization. He reports not taking his insulin as prescribed during these episodes. Due to ongoing symptoms, the patient presented to the emergency room. Per ED provider documentation, recently lost his brother and has been dealing with grief. There are no reports of sick contacts. The patient denies any hematochezia or hematemesis. He denies any fevers or chills. On initial workup in the emergency room the patient was found to be in DKA with an initial pH of 7.26 and a bicarb of 18. Anion gap was 24. Beta hydroxybutyrate was positive as well. The patient was treated with IV insulin IV fluids IV antiemetics with improvement in his chemistries. He has been transitioned to subcu insulin and now will be admitted for further care. Patient is seen and examined in the emergency room around 08:30 on 04/06. The patient reports ongoing periumbilical pain. He reports nausea with dry heaving. He denies any diarrhea DKA s/p IV insulin + fluids in the ED. AG closed and chemistries improved and he was transitioned to subcut insulin upon admission. Due to complaint of abdominal pain, CT scan was obtained which was unremarkable. Had nausea and vomiting and limited p.o. intake Likely due to diabetic gastroparesis. Potassium levels were low likely due to decreased p.o. intake and required replacement. Patient was started on premeal Reglan and symptoms began slowly improving. He has reglan at home but hasn't been taking it. He is tolerating a diet and potassium levels have normalized. Recommend outpatient follow-up with GI/PCP Time Attestation Discharge Coordination Time (in mins): 35 Quality: Safe Use of Opioids Does Pt have an Active Cancer Diagnosis on the Problem List?: No Quality: Stroke Does the patient have a stroke diagnosis?: No Physical Exam Vital Signs: Vital Signs: Last Vital Signs Temp 98.0 F 04/09/25 12:00 Pulse 79 04/09/25 12:00 Resp 19 04/09/25 12:00 BP 114/63 04/09/25 12:00 Pulse Ox 99 04/09/25 12:00 O2 Del Method Room Air 04/09/25 12:00 BMI result Body Mass Index 18.4 Const: General: cooperative, alert and awake Nutritional Appearance: average body habitus and thin Orientation/consciousness: patient oriented x3 Resp: Effort & Inspection: no respiratory distress and no use of accessory muscles Cardio: Rate: regular rate GI: Inspection: No distended Palpation (GI): Soft to palpation Neuro: General: patient oriented x3 DS: Data Data Completed and Pending Completed studies during hospitalization [Text1]: Procedures Excision of Stomach, Pylorus, Via Natural or Artificial Opening Endoscopic, Diagnostic (01/13/22) Introduction of Remdesivir Anti-infective into Peripheral Vein, Percutaneous Approach, [employer] (09/09/22) Labs on day of discharge: Laboratory Results - last 24 hr 04/08/25 04/08/25 04/08/25 14:55 16:15 20:23 Hold Purple Top Potassium 3.2 L D POC Glucose 97 129 H 04/09/25 04/09/25 04/09/25 08:24 10:52 10:56 Hold Purple Top SEE NOTE Potassium 3.6 POC Glucose 226 H 04/09/25 11:10 Hold Purple Top Potassium POC Glucose 259 H Discharge Plan Discharge Anticipated Discharge Date/Time: 04/09/25 13:18 Patient Disposition: Home, Self-Care Discharge Diagnosis: N/V likely due to gastroparesis DKA resolved low potassium Referrals: Isabell Blue MD [Primary Care Provider] - 1 Week Discharge Medications: Continued (DME) disposable gloves Package See Rx Instructions .Route Qty: 2 0RF Rx Instructions: As directed (DME) FreeStyle Test Strip See Rx Instructions .Route Qty: 50 11RF Rx Instructions: Use 1 test strip once a day rosuvastatin 5 mg tablet 5 mg PO DAILY 90 Days Qty: 90 1RF (DME) pen needle, diabetic [BD Ultra-Fine Micro Pen Needle] 32 gauge x 1/4 needle See Rx Instructions .ROUTE .COMPLEX Qty: 100 0RF Dose Instruction: USE FOR INJECTIONS FOUR TIMES DAILY Rx Instructions: USE FOR INJECTIONS FOUR TIMES DAILY (DME) crutch tips 05/17 See Rx Instructions .Route .MEDSUPPLY Qty: 2 0RF Rx Instructions: As directed (DME) Dexcom G7 Sensor Device See Rx Instructions .ROUTE .COMPLEX Qty: 3 0RF Dose Instruction: USE DIRECTED, CHANGE SENSOR EVERY 10 DAYS Rx Instructions: USE DIRECTED, CHANGE SENSOR EVERY 10 DAYS cholecalciferol (vitamin D3) 50 mcg (2,000 unit) capsule 50 mcg PO DAILY 90 Days Qty: 90 1RF (DME) blood-glucose meter [FreeStyle Lite Meter] Kit See Rx Instructions .Route Qty: 1 0RF Rx Instructions: As directed pyridoxine (vitamin B6) 50 mg tablet 50 mg PO DAILY 90 Days Qty: 90 0RF Glucerna Therapeutic Nutrition Liquid 1 ea PO TID Qty: 237 3RF glipizide 5 mg tablet 5 mg PO DAILY metoclopramide HCl 10 mg tablet 10 mg PO Q6H PRN (Reason: nausea and vomiting) Qty: 30 0RF amlodipine 5 mg tablet 5 mg PO DAILY cyclobenzaprine 5 mg tablet 5 mg PO BEDTIME PRN (Reason: Muscle Spasm) Baqsimi 3 mg/actuation spray,non-aerosol 3 mg intranasal USEASDIRECTD PRN (Reason: Hypocalcemia) omeprazole 40 mg capsule,delayed release(DR/EC) 40 mg PO BID@0630,1630 insulin glargine [Lantus Solostar U-100 Insulin] 100 unit/mL (3 mL) insulin pen 15 unit subcut DAILY (DME) wheelchair electric See Rx Instructions .Route .MEDSUPPLY Qty: 1 0RF Rx Instructions: As directed (DME) crutch tips 7-8 See Rx Instructions .Route .MEDSUPPLY Qty: 40 11RF Rx Instructions: As directed (DME) ankle wraps See Rx Instructions .Route .MEDSUPPLY Qty: 1 1RF Rx Instructions: As directed insulin aspart U-100 [Novolog FlexPen U-100 Insulin] 100 unit/mL (3 mL) insulin pen 5 unit subcut TID Qty: 15 5RF Discharge Orders: Discharge Order (Routine); Ordered 04/09/25 Ordered By: Kimberlyn Mendez Diet: Diabetic diet Activity on Discharge: As tolerated Stand Alone Forms: Patient Portal Discharge page Print Language: Lithuanian Care Plan Goals: see below Health Concerns: DKA - resolved low potassium, low magnesium - resolved Plan of Treatment: Recommend taking Reglan before meals to help with Nausea. symptoms are likely due to gastroparesis Continue Lantus and glipizide as prescribed Check blood sugar before meals and at bedtime Call to schedule follow-up appointment with GI and PCP Recommend following diabetic diet Assessment: see discharge summary
--- NOTE | 2025-04-09 14:13 | MHC.CM.PN ---
PT CLEARED TO DC HOME TODAY WITH RESUMPTION OF GRAIN I [employer] PT DECLINING [facility] PT WILL ARRANGE TRANSPORT
[2025-04-09 15:57] VITALS: BP 135/75; PULSE 89; RESP 18; TEMP 36.8; O2SAT 97
== END 2025-04-09 16:00 | disposition home or self-care (01) | DRG 638 ==
LOC: HO.ED 04-06 07:23 → HO.EDOVER 04-06 07:35 → HO.IMC 04-06 14:56
PROVIDERS: Emergency Medicine; Family Medicine; Physician Assistant; Admitting Provider Family Medicine; Emergency Provider Emergency Medicine Emergency Medical Services; PCP Internal Medicine; Visit Provider Physician Assistant Medical
DX: E10.10 Type 1 diabetes mellitus with ketoacidosis without coma (principal); E44.0 Moderate protein-calorie malnutrition; Z68.1 Body mass index [BMI] 19.9 or less, adult; G80.1 Spastic diplegic cerebral palsy; E83.42 Hypomagnesemia; E10.43 Type 1 diabetes mellitus with diabetic autonomic (poly)neuropathy; E78.5 Hyperlipidemia, unspecified; E87.6 Hypokalemia; M54.9 Dorsalgia, unspecified; G89.29 Other chronic pain; K31.84 Gastroparesis; T38.3X6A Underdosing of insulin and oral hypoglycemic [antidiabetic] drugs, initial encounter; Z20.822 Contact with and (suspected) exposure to COVID-19; Z79.4 Long term (current) use of insulin; Z79.899 Other long term (current) drug therapy
CPT/HCPCS: 0241U; 36415; 74176; 80048; 80076; 80307; 81001; 82010; 82803; 82947; 83605; 83690; 83735; 83930; 84100; 84132; 85025; 93005; 99285; J1200; J1308; J1650; J1790; J2270; J2405; J2765; J3475; J3480; J7120

== ENCOUNTER → 2025-04-05 14:51 | Outpatient (BNV) | payer OTHER, SELFPAY | PROVIDERS: Admitting Provider Family Medicine; Emergency Provider Emergency Medicine Emergency Medical Services; PCP Internal Medicine; Visit Provider Internal Medicine Cardiovascular Disease | DX: R11.2 Nausea with vomiting, unspecified (principal) | CPT/HCPCS: 93010 ==

== ENCOUNTER 2025-04-06 07:23 | Outpatient (BNV) | payer OTHER, SELFPAY | END 2025-04-06 11:42 | PROVIDERS: Admitting Provider Family Medicine; Emergency Provider Emergency Medicine Emergency Medical Services; PCP Internal Medicine; Visit Provider Radiology Diagnostic Radiology | DX: N20.0 Calculus of kidney (principal) | CPT/HCPCS: 74176 ==

== ENCOUNTER 2025-04-06 07:23 | Outpatient (BNV) | payer OTHER, SELFPAY | END 2025-04-06 10:59 | PROVIDERS: Admitting Provider Family Medicine; Emergency Provider Emergency Medicine Emergency Medical Services; PCP Internal Medicine; Visit Provider Internal Medicine Cardiovascular Disease | DX: Z13.6 Encounter for screening for cardiovascular disorders (principal) | CPT/HCPCS: 93010 ==

== ENCOUNTER → 2025-04-06 07:23 | Outpatient (BNV) | payer OTHER, SELFPAY | PROVIDERS: Admitting Provider Family Medicine; Emergency Provider Emergency Medicine Emergency Medical Services; PCP Internal Medicine; Visit Provider Internal Medicine Gastroenterology | DX: E11.43 Type 2 diabetes mellitus with diabetic autonomic (poly)neuropathy (principal); E11.10 Type 2 diabetes mellitus with ketoacidosis without coma; K31.84 Gastroparesis; R10.9 Unspecified abdominal pain; R11.2 Nausea with vomiting, unspecified | CPT/HCPCS: 99232 ==

== ENCOUNTER → 2025-04-06 07:23 | Outpatient (BNV) | payer OTHER, SELFPAY | PROVIDERS: Admitting Provider Family Medicine; Emergency Provider Emergency Medicine Emergency Medical Services; PCP Internal Medicine; Visit Provider Physician Assistant Medical | DX: E11.43 Type 2 diabetes mellitus with diabetic autonomic (poly)neuropathy (principal); K31.84 Gastroparesis; E11.10 Type 2 diabetes mellitus with ketoacidosis without coma; R11.2 Nausea with vomiting, unspecified | CPT/HCPCS: 99232 ==

== ENCOUNTER 2025-04-22 12:47 | Outpatient (AMB) | payer OTHER, SELFPAY ==
--- NOTE | 2025-04-22 12:55 | A.OFFPC_ITS ---
Vital Signs 04/22/25 12:56 Height 5 ft 4 in Weight 106 lb 7.732 oz BMI 18.3 BP 100/60 Blood Pressure Location Lt brachial Position Sitting Pulse 92 Pulse Source Pulse Oximeter Temp 97.1 F Temp Source Temporal Artery Scan Pulse Oximetry (%) 97 Oxygen Delivery Method Room Air Intake Visit Reasons: TCM [facility] [place] 04/09 DKA Refractory Worker Required: No Accompanied by: Self / Same As Patient Allergies No Known Allergies Allergy (Verified 04/22/25 13:11) Tobacco use date assessed: 03/16/25 Dental Screening Dental Screen Date: 03/16/25 HPI TCM TCM Information Date of Discharge 04/09/25 Discharged From [facility] Interactive Contact Date (Reference documentation from this date) 04/11/25 HPI Comments History of Present Illness Details 45 y/o Male patient who presents to the clinic for TCM. Pmhx significant for late onset type 1 diabetes, mild depression, cerebral palsy (spastic diplegic), gastroparesis, pancolitis, nephrolithiasis, and GERD. Pt was admitted at [facility] [place] on 04/06 - 04/09 for an evaluation and treatment of DKA. He reports not taking his insulin as prescribed - recently lost his brother and has been dealing with grief. CT scan abdomen was unremarkable. Pt reports that he is not using his Meal time Insulin (Novolog) for unknown reasons. He does inject 15 IU of Lantus every morning. 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 have visiting nurse or other home services: Yes ([employer]) Alcohol intake: current Alcohol intake frequency: holidays/special occasions only Alcohol type: beer Patient Tobacco Use Status: Former Tobacco user Tobacco use type: Cigarette e-Cigarette/Vaping Use: Never Used Second Hand Smoke Exposure: No Substance Use Type: Marijuana service: No Current occupational status: disabled Current occupation: rt handed Cognitive needs: Yes Hearing needs: No Vision needs: Yes Questionnaire Thrive Questionnaire Date Thrive assessed: 03/12/25 I am a: Patient What is your living situation today?: I have a steady place to live Within the past 12 months, did the food you bought not last and you didn't have the money to get more?: I choose not to answer this question Within the past 12 months, did you worry whether your food would run out before you got money to buy more?: I choose not to answer this question Do you have trouble paying for medicines?: No Do you have trouble getting transportation to medical appointments?: No Do you have trouble paying your heating and electricity bill?: I choose not to answer this question Do you have trouble taking care of your child, family member or friend?: I choose not to answer this question Do you have trouble with day-to-day activities such as bathing, preparing meals, shopping, managing finances, etc.?: No Are you currently unemployed and looking for a job?: No Are you interested in more education?: No Please select the resources that you would like help with: None Currently or been in a relationship where the following occur: I choose not to answer THRIVE Score: 0 AUSTYN-7 AMB Questionnaire AUSTYN-7 Date AUSTYN - 7 assessed: 03/16/25 Source: Developed by Drs. Jabari Mckeon, Argentina Staton, Ernesto Estrada and colleagues, with an educational joesph from [employer]. Review of Systems Const All systems reviewed & are unremarkable except as noted in HPI and below Physical exam (Primary Care) Vital Signs: Last Vital Signs Temp 97.1 F 04/22/25 12:56 Pulse 92 04/22/25 12:56 BP 100/60 04/22/25 12:56 Pulse Ox 97 04/22/25 12:56 Oxygen Delivery Method Room Air 04/22/25 12:56 BMI result Body Mass Index 18.3 Tobacco/Smoking Status: Tobacco use Status Tobacco use date assessed 03/16/25 04/22/25 12:56 Patient Tobacco Use Status Former Tobacco user 04/22/25 12:56 Tobacco use type Cigarette 04/22/25 12:56 e-Cigarette/Vaping Use Never Used 04/22/25 12:56 Thrive Assessment: Date of Thrive Assessment Date Thrive assessed 03/12/25 04/22/25 12:56 Currently or been in a relationship where the following occur: I choose not to answer Const General: no acute distress and lethargic Nutritional Appearance: underweight Orientation/consciousness: patient oriented x3 and lethargic Resp Effort & Inspection: normal respiratory effort Auscultation: clear to auscultation bilaterally Cardio Heart sounds: S1 normal heart sound present and S2 normal heart sound present Neuro General: patient oriented x3 and gait normal Coding Level of Care Code Est Pt Level 4 (11930) Diagnoses Diabetic ketoacidosis without coma associated with type 1 diabetes mellitus E10.10 Diabetes mellitus type: type 1 Diabetes mellitus complication detail: without coma 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
[2025-04-22 12:56] VITALS: BP 100/60; PULSE 92; TEMP 36.2; O2SAT 97; BMI 18.3
--- OUTSIDE RECORDS SUMMARY | 2025-04-22 13:13 | XMS_ITS | Patient Health Record ---
[facility] Address [address] [place] [address] Care Team Providers Care Senior Report Developer Name Role Phone Beverley PONCE, Isabell Primary Care Provider Unavail able Jasmyn Claire Unavailable [phone] Narciso Graff Unavailable [phone] Allergies No Known Allergies Results Component Value [...] Status Risk Notes Problem Polyneuropathy due to type 2 diabetes mellitus (026950111) Type 2 diabetes mellitus with diabetic polyneuropathy (E11.42) Active confirmed Vital Signs Blood pressure diastolic 70 mm Hg 11/09/2024 Height 5ft 7in in 02/25/2025 Blood pressure systolic 130 mm Hg 11/09/2024 Weight 117 lbs 02/25/2025 BMI 18.32 kg/m2 02/25/2025 Procedures Procedure Date Ordered Date Performed Result Body Sit e 70435-XSQIIFS NAIL, 6 OR MORE 11/09/2024 N/A 15506-JPJH SKIN LESIONS, 2 TO 4 11/09/2024 N/A 68456-AXOGNVT NAIL, 6 OR MORE 02/25/2025 N/A Encounters Encounter Location Date Provider Diagnosis [facility] [address] 05/18/2024 Narciso Graff Pain in left foot M79.672 ; Pain in right foot M79.671 ; Pain in right toe(s) M79.674 ; Tinea unguium B35.1 ; Pain in left toe(s) M79.675 ; Type 2 diabetes mellitus with diabetic polyneuropathy E11.42 ; Ingrowing nail L60.0 and Metatarsalgia, right foot M77.[address] [facility] [address] 07/13/2024 Narciso Graff Pain in left foot M79.672 ; Pain in right foot M79.671 ; Type 2 diabetes mellitus with diabetic polyneuropathy E11.42 ; Metatarsalgia, right foot M77.41 ; Metatarsalgia, left foot M77.42 and Plantar fascial fibromatosis M72.2 [facility] [address] [place] [address] 08/10/2024 Narciso Graff Pain in left foot M79.672 ; Pain in right foot M79.671 ; Pain in right toe(s) M79.674 ; Tinea unguium B35.1 ; Pain in left toe(s) M79.675 ; Type 2 diabetes mellitus with diabetic polyneuropathy E11.42 ; Ingrowing nail L60.0 and Metatarsalgia, right foot M77.[address] [address] 11/09/2024 Jasmyn Claire Type 2 diabetes mellitus with diabetic polyneuropathy E11.42 and Tinea unguium B35.[address] [address] 02/25/2025 Jasmyn Claire Type 2 diabetes mellitus with diabetic polyneuropathy E11.42 ; Tinea unguium B35.1 ; Pain in right toe(s) M79.674 and Other hammer toe(s) (acquired), right foot M20.[address] [address] 06/25/2024 Narciso Graff [address] [address] 07/13/2024 Narciso Graff Assessments Encounter Date Diagnosis [...] X ray : Foot, right 3V 01/16/2018 90624-QHXMXOB NAIL, 6 OR MORE 11/09/2024 74017-PCFMXKN NAIL, 6 OR MORE 02/25/2025 60148-Ipmy Destruction, 1-14 01/16/2018 12238-Kvko Destruction, -14 02/13/2018 97099-Mboy Destruction, -14 03/06/2018 11468-Rqju Destruction, -14 05/08/2018 85587-Jnhw Destruction, -14 07/17/2018 42158-Ytdr Destruction, -09/01/2018 49052-Wpww Destruction, -14 11/17/2018 59104-GFZG SKIN LESIONS, 2 TO 4 11/27/19 04038-VNRU SKIN LESIONS, 2 TO 4 02/27/20 77912-OMMZ SKIN LESIONS, 2 TO 4 11/09/20 Next Appt Details Provider Name:Jasmyn Dunn liyah, 05/31/2025 09:15:00 AM, [address] [facility], [facility], [place], [address], Insurance Providers Payer Name Payer Address Payer Phone Subscriber Number Group Number Insured Name Patient Relationship to Insured Coverage Start Date Coverage End Date [facility] [employer] Claims [address] [place] [phone] [id number] Wilman Huggins Self - patient is the insured Medical (General) History Medical History History ICD Code Cerebral palsy Chicken pox Depression Diabetic Surgical History Surgery Date(Month/Year) neuroma surgery x4 1982, 1989 colonscopy 02/24/24 Hospitalization History Reason Date(Month/Year) [facility] [place]/2024 [facility]- colitis 04/2023 [facility] [place] 09/2022 [facility] [place] GI bleed 01/2022 Food Posion 10/2019 [facility] [place] [facility] High blood sugar 6103/2018
== END 2025-04-22 13:33 | disposition home or self-care (01) ==
LOC: HO.HMCH 12:47
PROVIDERS: PCP Internal Medicine; Visit Provider Nurse Practitioner Family
DX: E10.10 Type 1 diabetes mellitus with ketoacidosis without coma (principal)

== ENCOUNTER → 2025-04-22 12:47 | Outpatient (BNVA) | payer OTHER, SELFPAY | PROVIDERS: PCP Internal Medicine; Visit Provider Nurse Practitioner Family | DX: E10.10 Type 1 diabetes mellitus with ketoacidosis without coma (principal); F32.A Depression, unspecified; K21.9 Gastro-esophageal reflux disease without esophagitis; Z79.4 Long term (current) use of insulin | CPT/HCPCS: 99212 ==

== ENCOUNTER 2025-07-25 21:00 | Emergency (ER) | payer OTHER, SELFPAY ==
--- OUTSIDE RECORDS SUMMARY | 2024-07-20 08:00 | XMS_ITS ---
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 [address] 07/20/2024 Narciso Graff Plan Of Treatment Next Appt Details Provider Name:Jasmyn pelletier, 08/30/2025 09:30:00 AM, [address] [place] [address], [id number], Progress Notes * Brynn MCKEONOB:1980 (45 yo M)Acc No.[id number]:07/20/2024 Progress Note Patient: Wilman SMITH Provider: Nichelle Graff DPM :1980 A ge:44 Y S ex:Male Date:07/20/2024 Address:[address] , [place], [place] Pcp:Isabell Lowery MD Subjective: * Chief Complaints: * * Medical History: Objective: * Vitals: Assessment: Plan: * Treatment: * Images: * The named appointment provid er may or may not be the originator of this progress note, and it is not deemed complete until electronically signed by the appointment provider. Sign off status: Pending * Provider: Nichelle Graff DPM Date: 0 07/20/2024 Generated for Yobani carroll/Wayne/Sadie on: 07/25/2025 10:15 PM EDT
--- NOTE | ~2025-07-25 | CT_ITS ---
CLINICAL HISTORY: abdominal pain CT abdomen and pelvis with contrast Comparison: CT/REG/TN/SR - CT ABDOMEN PELVIS WO IV CON - 04/06/25 11:42 EDT Findings: No consolidation or effusion. No focal hepatic lesion. Gallbladder, pancreas, spleen and adrenal glands are within normal limits. Kidneys enhance symmetrically and are non hydronephrotic. Bilateral renal cortical cysts are present measuring up to 4.5 cm on the right. Nonobstructing bilateral renal calculi are present. The colon empty and appears slightly thick-walled. Pelvic contents unremarkable. Normal appendix. Bones are osteopenic. IMPRESSION: Mild colonic wall thickening, possibly due to under distention versus colitis. Please correlate clinically. This document has been electronically signed by: Mina Ruelas MD, PHD on 07/26/2025 03:28:34
[2025-07-25 21:18] VITALS: BP 162/89; PULSE 60; RESP 16; TEMP 36.4; O2SAT 97; BMI 18.8
[2025-07-25 21:24] LABS: Glucose, Whole Blood 405 mg/dL (60-115)
[2025-07-25 21:35] LABS: Hematocrit 43.0 % (42.0-52.0); Hemoglobin 15.9 g/dl (14.0-18.0); Imm Gran Abs Auto 0.08 X10*3/uL (0.00-0.03); Imm Gran Pct Auto 0.5 % (0.0-0.4); Lymphocytes Absolute Auto 0.8 X10*3/uL (1.2-4.9); MANUAL DIFF FLAG SCAN; Mean Corpuscular HGB Conc 37.0 g/dl (31.0-36.0); Mean Corpuscular Hemoglobin 31.7 pg (27.0-33.0); Mean Corpuscular Volume 85.8 fL (80.0-98.0); NRBC Abs Auto 0.000 X10*3/uL (0.0-0.012); NRBC Pct Auto 0.0 /100WBC (0.0-0.2); Platelet Count 270 X10*3/uL (160-400); Red Blood Count 5.01 X10*6/uL (4.60-5.80); SCAN SMEAR FLAG 1; White Blood Count 17.3 X10*3/uL (4.8-10.8)
[2025-07-25 21:52] LABS: Alanine Aminotransferase 33 U/L (0-40); Albumin Level 5.4 g/dL (3.5-5.0); Alkaline Phosphatase 88 U/L (39-117); Anion Gap 25 (12-20); Aspartate Amino Transferase 24 U/L (5-37); Blood Urea Nitrogen 23 mg/dL (9-16); Calcium 9.9 mg/dL (8.4-10.2); Carbon Dioxide 15 mmol/L (22-29); Chloride 104 mmol/L (96-108); Creatinine Clr Calc Pharmacy 57.1; Estimated Glomerular Filt Rate > 60; Lipase 6 U/L (8-78); Potassium 3.3 mmol/L (3.3-5.1); Sodium 141 mmol/L (135-145); Total Protein 8.4 g/dL (6.5-8.0)
--- NOTE | 2025-07-25 21:55 | ECG_ITS ---
Test Reason : ELEVATED BLOOD SUGAR Blood Pressure : */* mmHG Vent. Rate : 69 BPM Atrial Rate : 69 BPM P-R Int : 122 ms QRS Dur : 82 ms QT Int : 392 ms P-R-T Axes : 29 71 44 degrees QTcB Int : 420 ms Normal sinus rhythm Normal ECG When compared with ECG of 06-Apr-2025 10:59, No significant change was found Referred By: Generic ED Physician Electronically Signed By: DAVI GROVES
--- NOTE | 2025-07-25 22:04 | ED.GENADULT ---
HPI - General Adult General Chief complaint: General Medical Stated complaint: blood sugar @ 406 Time Seen by Provider: 07/25/25 22:04 Source: patient Mode of arrival: ambulatory Limitations: no limitations History of Present Illness ED Provider: Dr. Salinas HPI narrative: 45-year-old male history of diabetes presented hospital today for a couple of days of diarrhea nausea vomiting. Patient has found that his sugar is elevated. Patient stated that he has been taking 15 units of long acting insulin. However sugar remains high at this time. Denies any fever. Denies any coughing. He is complaining of diffuse abdominal pain on exam. Related Data Home Medications ?Medication ?Instructions ?Recorded ?Confirmed glipizide 5 mg tablet 5 mg PO DAILY 11/30/24 04/11/25 amlodipine 5 mg tablet 5 mg PO DAILY 04/06/25 04/11/25 cyclobenzaprine 5 mg tablet 5 mg PO BEDTIME PRN Muscle Spasm 04/06/25 04/11/25 glucagon 3 mg/actuation nasal 3 mg intranasal USEASDIRECTD PRN 04/06/25 04/11/25 spray (Baqsimi) Hypocalcemia insulin glargine 100 unit/mL (3 15 unit subcut DAILY 04/06/25 04/11/25 mL) subcutaneous pen (Lantus Solostar U-100 Insulin) omeprazole 40 mg capsule,delayed 40 mg PO BID@0630,1630 04/06/25 04/11/25 release Previous Rx's ?Medication ?Instructions ?Recorded wheelchair #1 ea 10/11/20 disposable gloves #2 ea 03/25/23 blood sugar diagnostic (FreeStyle #50 ea 04/23/23 Test strips) insulin aspart U-100 100 unit/mL 5 unit (0.05 mL) subcut TID #15 mL 07/01/23 (3 mL) subcutaneous pen (Novolog FlexPen U-100 Insulin aspart) rosuvastatin 5 mg tablet 5 mg PO DAILY 90 days #90 tabs 08/13/23 pen needle, diabetic 32 gauge x #100 ea 12/07/2311/13 (BD Ultra-Fine Micro Pen Needle) crutch tips #2 ea 12/10/23 blood-glucose sensor (Dexcom G7 #3 ea 12/14/23 Sensor device) cholecalciferol (vitamin D3) 50 50 mcg PO DAILY 90 days #90 caps 03/14/24 mcg (2,000 unit) capsule metoclopramide HCl 10 mg tablet 10 mg PO Q6H PRN nausea and 12/07/24 vomiting #30 tabs blood-glucose meter (FreeStyle #1 ea 12/16/24 Lite Meter kit) pyridoxine (vitamin B6) 50 mg 50 mg PO DAILY 90 days #90 tabs 12/16/24 tablet nut.tx.gluc.intol,lac-free,soy 1 ea PO TID #237 mL 12/20/24 (Glucerna Therapeutic Nutrition oral liquid) ankle wraps #1 ea 03/16/25 crutch tips #40 ea 03/16/25 Allergies Allergy/AdvReac Type Severity Reaction Status Date / Time No Known Allergies Allergy Verified 07/25/25 21:20 Review of Systems Review of Systems: Pertinent review of systems as mentioned in HPI. All other system otherwise negative. 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 Social History 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 have visiting nurse or other home services: Yes ([employer]) Alcohol intake: current Alcohol intake frequency: holidays/special occasions only Alcohol type: beer Patient Tobacco Use Status: Former Tobacco user Tobacco use type: Cigarette Smoked in Last 30 Days: No e-Cigarette/Vaping Use: Never Used Second Hand Smoke Exposure: No Use of substances other than those prescribed or required for medical reasons: Yes Substance Use Type: Marijuana Advance Directives: No Advance Directives Information Provided: No Do you have a plan to hurt others: No Plan service: No Current occupational status: disabled Current occupation: rt handed Cognitive needs: Yes Hearing needs: No Vision needs: Yes Physical Exam ED Exam Exam: General: Pleasant, no distress, interacting appropriately Head: Normacephalic, atraumatic ENT: oral mucosa dry, neck supple, no tracheal deviation Cardiovascular: regular rate, regular rhythm, no murmurs, rubbing, gallops Respiratory: CTAB, no wheeze, rales, rhonchi Gastrointestinal: Soft, non distended, diffuse abdominal pain on exam Extremities: No limb pain or swelling, no calf tenderness Neurological: Awake and alert, no facial droop noted Skin: Warm and dry Psychiatric: Appropriate mood and thoughts Vital Signs: Vital Signs - 24 hr 07/25/25 21:18 07/26/25 00:46 07/26/25 04:00 Temperature 97.6 F 98.5 F 98.1 F Pulse Rate 60 75 68 Respiratory Rate 16 16 14 Blood Pressure 162/89 H 155/78 H 133/56 L Pulse Oximetry 97 100 95 Oxygen Delivery Method Room Air Room Air Room Air 07/26/25 06:00 Temperature 97.3 F Pulse Rate 91 Respiratory Rate 20 Blood Pressure 184/90 H Pulse Oximetry 96 Oxygen Delivery Method Room Air BMI result Body Mass Index 18.8 Medications Administered Discontinued Medications Generic Name Dose Route Start Last Admin Trade Name Freq PRN Reason Stop Dose Admin Droperidol 1.25 mg 07/26/25 06:11 07/26/25 06:26 Droperidol 5 Mg/2 Ml Vial IVPUSH 07/26/25 06:12 1.25 mg ONCE ONE Administration Lactated Ringer's 1,000 mls @ 999 mls/hr 07/25/25 22:15 07/26/25 01:49 Lr IV 07/25/25 23:15 Infused .Q1H1M BOBO Infusion Magnesium Sulfate 2 gm in 50 mls @ 50 mls/hr 07/25/25 23:16 07/26/25 01:05 Magnesium Sulfate/H2o IV 07/26/25 00:15 Infused ONCE ONE Infusion Lactated Ringer's 1,000 mls @ 999 mls/hr 07/26/25 02:30 07/26/25 04:46 Lr IV 07/26/25 03:30 Infused .Q1H1M BOBO Infusion Iohexol 85 ml 07/26/25 00:23 07/26/25 00:24 Iohexol 350 Mg/Ml 100 Ml Infus..Btl IV 07/26/25 00:24 85 ml ONCE ONE Administration Metoclopramide HCl 5 mg 07/26/25 02:18 07/26/25 02:32 Metoclopramide Hcl 10 Mg/2 Ml Vial IVPUSH 07/26/25 02:19 5 mg ONCE ONE Administration Morphine Sulfate 4 mg 07/25/25 23:20 07/25/25 23:46 Morphine Sulfate 4 Mg/Ml Cartridge IVPUSH 07/25/25 23:21 4 mg ONCE ONE Administration Protocol Ondansetron HCl 4 mg 07/25/25 22:10 07/25/25 22:22 Ondansetron Hcl 4 Mg/2 Ml Vial IVPUSH 07/25/25 22:11 4 mg ONCE ONE Administration Medical Decision Making Medical Decision Making MDM Narrative: 45-year-old male history of diabetes presented hospital today for elevated blood sugar. Patient is complaining of nausea vomiting and diarrhea for the past couple of days. Concern for DKA in patient the patient does have an anion gap we will obtain a VBG ketones patient is hyperglycemic in the 400s at this time. He does have a white count of 17.3. We will plan to give patient does IV morphine for comfort. Zofran will be given to the patient as well. CT abdomen and pelvis will be obtained to assess for any signs of infectious sources. A L IV fluid be initiated for the patient. I review patient's lab work. He does have leukocytosis 17.3, this may be reactive to his nausea and vomiting. Patient VBG pH is 7.36 however his bicarb is 16. Patient's bicarb on chemistries 15. This is sign of metabolic acidosis likely in setting of volume loss. Patient's anion gap is elevated at 25. His lactic acid is not elevated. However his ketone is slightly about 4.37. Patient's pH is 7.36. His glucose has improved to 198 from 405. He has received some Zofran and Reglan for his symptoms. He also received a dose of IV morphine. IV magnesium was repleted for the patient. He had received 2 boluses of lactated Ringer's. On reassessment patient stated his symptom has improved. His pain has improved. However he still has some nausea. The currently pending his CT imaging at this time. Patient will be signed out to oncoming provider Dr. Higgins 7:05 AM 07/26/2025 (Dr. Kamla Higgins, D.O.) patient tolerating oral intake without issue. His blood work has normalized with improvement in his acidosis, blood sugar levels and VBG. I discussed with him the importance of taking his insulin and of trying to avoid marijuana use. I think this is contributing to his vomiting today. He will be discharged home to follow up as an outpatient. Discharged in stable condition. Differential Diagnosis Differential Diagnoses: The differential diagnosis associated with the presentation includes DKA, hyperglycemia, colitis, hyperkalemia Admission/Observation Consideration of admission/observation: Escalation of care including admission/observation considered Lab Data MDM Lab Attestation statement: I reviewed the patient's lab results. 07/25/25 21:27 07/26/25 03:58 Labs: Lab Results 07/25/25 07/25/25 07/25/25 Range/Units 21:14 21:27 23:02 WBC 17.3 H (4.8-10.8) X10*3/uL RBC 5.01 (4.60-5.80) X10*6/uL Hgb 15.9 (14.0-18.0) g/dl Hct 43.0 (42.0-52.0) % MCV 85.8 (80.0-98.0) fL MCH 31.7 (27.0-33.0) pg MCHC 37.0 H (31.0-36.0) g/dl RDW 11.8 (11.0-16.0) % Plt Count 270 (160-400) X10*3/uL MPV 9.2 L (9.4-12.4) fL Immature Gran % (Auto) 0.5 H (0.0-0.4) % Neut % (Auto) 91.4 H (45-73) % Lymph % (Auto) 4.5 L (20-40) % [place] % (Auto) 3.4 (2-11) % Eos % (Auto) 0.0 (0-4) % Baso % (Auto) 0.2 (0-2) % Lymph # (Auto) 0.8 L (1.2-4.9) X10*3/uL [place] # (Auto) 0.6 (0.1-1.2) X10*3/uL Eos # (Auto) 0.0 (0.0-0.4) X10*3/uL Baso # (Auto) 0.0 (0.0-0.2) X10*3/uL Abs Immat Gran (auto) 0.08 H (0.00-0.03) X10*3/uL Absolute Neuts (auto) 15.8 H (2.0-8.3) x10*3/uL Absolute Nucleated RBC 0.000 (0.0-0.012) X10*3/uL Nucleated RBC % (auto) 0.0 (0.0-0.2) /100WBC Smear Tech's Comments VERIFIED VBG pH (7.32-7.43) VBG pCO2 mmHg VBG pO2 mmHg VBG HCO3 (22-26) mmol/L VBG O2 Saturation % VBG Base Excess mmol/L Sodium 141 (135-145) mmol/L Potassium 3.3 (3.3-5.1) mmol/L Chloride 104 (96-108) mmol/L Carbon Dioxide 15 L (22-29) mmol/L Anion Gap 25 H (12-20) BUN 23 H (9-16) mg/dL Creatinine 1.23 (0.5-1.4) mg/dL Estim Creat Clear Calc 57.1 Estimated GFR > 60 POC Glucose 405 H* (60-115) mg/dL Random Glucose 402 H* (60-115) mg/dL Lactic Acid (0.5-2.0) mmol/L Calcium 9.9 D (8.4-10.2) mg/dL Magnesium 2.0 (1.6-2.6) mg/dL Total Bilirubin 1.4 H (0.0-1.0) mg/dL AST 24 (5-37) U/L ALT 33 (0-40) U/L Alkaline Phosphatase 88 (39-117) U/L Total Protein 8.4 H (6.5-8.0) g/dL Albumin 5.4 H (3.5-5.0) g/dL Lipase 6 L (8-78) U/L Beta-Hydroxybutyrate 4.37 H (0.02-0.27) mmol/L Urine Color Urine Appearance Urine pH (5.0-9.0) Ur Specific [place] (1.005-1.025) Urine Protein (Neg-Trace) mg/dL Urine Glucose (UA) (Negative) mg/dL Urine Ketones (Negative) mg/dL Urine Blood (Negative) Urine Nitrite (Negative) Ur Leukocyte Esterase (Negative) Urine RBC (0-2) /HPF Urine WBC (0-5) /HPF Ur Squamous Epith Cells (0-2) /HPF Urine Bacteria (None Seen) Hyaline Casts (0-2) /LPF 07/25/25 07/25/25 07/25/25 Range/Units 23:03 23:11 23:14 WBC (4.8-10.8) X10*3/uL RBC (4.60-5.80) X10*6/uL Hgb (14.0-18.0) g/dl Hct (42.0-52.0) % MCV (80.0-98.0) fL MCH (27.0-33.0) pg MCHC (31.0-36.0) g/dl RDW (11.0-16.0) % Plt Count (160-400) X10*3/uL MPV (9.4-12.4) fL Immature Gran % (Auto) (0.0-0.4) % Neut % (Auto) (45-73) % Lymph % (Auto) (20-40) % [place] % (Auto) (2-11) % Eos % (Auto) (0-4) % Baso % (Auto) (0-2) % Lymph # (Auto) (1.2-4.9) X10*3/uL [place] # (Auto) (0.1-1.2) X10*3/uL Eos # (Auto) (0.0-0.4) X10*3/uL Baso # (Auto) (0.0-0.2) X10*3/uL Abs Immat Gran (auto) (0.00-0.03) X10*3/uL Absolute Neuts (auto) (2.0-8.3) x10*3/uL Absolute Nucleated RBC (0.0-0.012) X10*3/uL Nucleated RBC % (auto) (0.0-0.2) /100WBC Smear Tech's Comments VBG pH 7.36 (7.32-7.43) VBG pCO2 29 mmHg VBG pO2 80 mmHg VBG HCO3 16 L (22-26) mmol/L VBG O2 Saturation 96.0 % VBG Base Excess -6.9 mmol/L Sodium (135-145) mmol/L Potassium (3.3-5.1) mmol/L Chloride (96-108) mmol/L Carbon Dioxide (22-29) mmol/L Anion Gap (12-20) BUN (9-16) mg/dL Creatinine (0.5-1.4) mg/dL Estim Creat Clear Calc Estimated GFR POC Glucose (60-115) mg/dL Random Glucose (60-115) mg/dL Lactic Acid 1.8 (0.5-2.0) mmol/L Calcium (8.4-10.2) mg/dL Magnesium (1.6-2.6) mg/dL Total Bilirubin (0.0-1.0) mg/dL AST (5-37) U/L ALT (0-40) U/L Alkaline Phosphatase (39-117) U/L Total Protein (6.5-8.0) g/dL Albumin (3.5-5.0) g/dL Lipase (8-78) U/L Beta-Hydroxybutyrate (0.02-0.27) mmol/L Urine Color Yellow Urine Appearance Clear Urine pH 5.5 (5.0-9.0) Ur Specific [place] >= 1.030 H (1.005-1.025) Urine Protein 100 (2+) H (Neg-Trace) mg/dL Urine Glucose (UA) >=1000 H (Negative) mg/dL Urine Ketones >=160 (Negative) mg/dL Urine Blood Small (1+) H (Negative) Urine Nitrite Negative (Negative) Ur Leukocyte Esterase Negative (Negative) Urine RBC 11-20 H (0-2) /HPF Urine WBC 0-5 (0-5) /HPF Ur Squamous Epith Cells 0-2 (0-2) /HPF Urine Bacteria None Seen (None Seen) Hyaline Casts 3-5 (0-2) /LPF 07/26/25 07/26/25 07/26/25 Range/Units 00:32 01:11 03:58 WBC (4.8-10.8) X10*3/uL RBC (4.60-5.80) X10*6/uL Hgb (14.0-18.0) g/dl Hct (42.0-52.0) % MCV (80.0-98.0) fL MCH (27.0-33.0) pg MCHC (31.0-36.0) g/dl RDW (11.0-16.0) % Plt Count (160-400) X10*3/uL MPV (9.4-12.4) fL Immature Gran % (Auto) (0.0-0.4) % Neut % (Auto) (45-73) % Lymph % (Auto) (20-40) % [place] % (Auto) (2-11) % Eos % (Auto) (0-4) % Baso % (Auto) (0-2) % Lymph # (Auto) (1.2-4.9) X10*3/uL [place] # (Auto) (0.1-1.2) X10*3/uL Eos # (Auto) (0.0-0.4) X10*3/uL Baso # (Auto) (0.0-0.2) X10*3/uL Abs Immat Gran (auto) (0.00-0.03) X10*3/uL Absolute Neuts (auto) (2.0-8.3) x10*3/uL Absolute Nucleated RBC (0.0-0.012) X10*3/uL Nucleated RBC % (auto) (0.0-0.2) /100WBC Smear Tech's Comments VBG pH (7.32-7.43) VBG pCO2 mmHg VBG pO2 mmHg VBG HCO3 (22-26) mmol/L VBG O2 Saturation % VBG Base Excess mmol/L Sodium 141 (135-145) mmol/L Potassium 3.7 (3.3-5.1) mmol/L Chloride 108 (96-108) mmol/L Carbon Dioxide 22 (22-29) mmol/L Anion Gap 15 (12-20) BUN 19 H (9-16) mg/dL Creatinine 0.84 (0.5-1.4) mg/dL Estim Creat Clear Calc 83.6 Estimated GFR > 60 POC Glucose 234 H 198 H (60-115) mg/dL Random Glucose 169 H (60-115) mg/dL Lactic Acid (0.5-2.0) mmol/L Calcium 8.9 D (8.4-10.2) mg/dL Magnesium (1.6-2.6) mg/dL Total Bilirubin (0.0-1.0) mg/dL AST (5-37) U/L ALT (0-40) U/L Alkaline Phosphatase (39-117) U/L Total Protein (6.5-8.0) g/dL Albumin (3.5-5.0) g/dL Lipase (8-78) U/L Beta-Hydroxybutyrate (0.02-0.27) mmol/L Urine Color Urine Appearance Urine pH (5.0-9.0) Ur Specific [place] (1.005-1.025) Urine Protein (Neg-Trace) mg/dL Urine Glucose (UA) (Negative) mg/dL Urine Ketones (Negative) mg/dL Urine Blood (Negative) Urine Nitrite (Negative) Ur Leukocyte Esterase (Negative) Urine RBC (0-2) /HPF Urine WBC (0-5) /HPF Ur Squamous Epith Cells (0-2) /HPF Urine Bacteria (None Seen) Hyaline Casts (0-2) /LPF 07/26/25 07/26/25 Range/Units 04:02 07:19 WBC (4.8-10.8) X10*3/uL RBC (4.60-5.80) X10*6/uL Hgb (14.0-18.0) g/dl Hct (42.0-52.0) % MCV (80.0-98.0) fL MCH (27.0-33.0) pg MCHC (31.0-36.0) g/dl RDW (11.0-16.0) % Plt Count (160-400) X10*3/uL MPV (9.4-12.4) fL Immature Gran % (Auto) (0.0-0.4) % Neut % (Auto) (45-73) % Lymph % (Auto) (20-40) % [place] % (Auto) (2-11) % Eos % (Auto) (0-4) % Baso % (Auto) (0-2) % Lymph # (Auto) (1.2-4.9) X10*3/uL [place] # (Auto) (0.1-1.2) X10*3/uL Eos # (Auto) (0.0-0.4) X10*3/uL Baso # (Auto) (0.0-0.2) X10*3/uL Abs Immat Gran (auto) (0.00-0.03) X10*3/uL Absolute Neuts (auto) (2.0-8.3) x10*3/uL Absolute Nucleated RBC (0.0-0.012) X10*3/uL Nucleated RBC % (auto) (0.0-0.2) /100WBC Smear Tech's Comments VBG pH 7.45 H (7.32-7.43) VBG pCO2 35 mmHg VBG pO2 60 mmHg VBG HCO3 24 (22-26) mmol/L VBG O2 Saturation 90.0 % VBG Base Excess 1.1 mmol/L Sodium (135-145) mmol/L Potassium (3.3-5.1) mmol/L Chloride (96-108) mmol/L Carbon Dioxide (22-29) mmol/L Anion Gap (12-20) BUN (9-16) mg/dL Creatinine (0.5-1.4) mg/dL Estim Creat Clear Calc Estimated GFR POC Glucose 233 H (60-115) mg/dL Random Glucose (60-115) mg/dL Lactic Acid (0.5-2.0) mmol/L Calcium (8.4-10.2) mg/dL Magnesium (1.6-2.6) mg/dL Total Bilirubin (0.0-1.0) mg/dL AST (5-37) U/L ALT (0-40) U/L Alkaline Phosphatase (39-117) U/L Total Protein (6.5-8.0) g/dL Albumin (3.5-5.0) g/dL Lipase (8-78) U/L Beta-Hydroxybutyrate (0.02-0.27) mmol/L Urine Color Urine Appearance Urine pH (5.0-9.0) Ur Specific [place] (1.005-1.025) Urine Protein (Neg-Trace) mg/dL Urine Glucose (UA) (Negative) mg/dL Urine Ketones (Negative) mg/dL Urine Blood (Negative) Urine Nitrite (Negative) Ur Leukocyte Esterase (Negative) Urine RBC (0-2) /HPF Urine WBC (0-5) /HPF Ur Squamous Epith Cells (0-2) /HPF Urine Bacteria (None Seen) Hyaline Casts (0-2) /LPF Chronic Conditions Patient?s care impacted by: Diabetes Critical Care Time Critical Care Time Critical Care Time: Yes Total Critical Care Time: 40 Attestation: Time is exclusive of separately billable procedures. Time includes: direct patient care, patient reassessment, coordination of patient care, interpretation of data (laboratory data, pulse oximetry, arterial blood gases and chest xrays), review of patient's medical records, medical consultation and documentation of patient care. Procedures excluded from critical care time: central intravenous line placement and electrocardiography. Discharge Plan Discharge Clinical Impression: Hyperglycemia, Metabolic acidosis, Cannabinoid hyperemesis syndrome Nausea & vomiting Qualifiers: Vomiting type: unspecified Qualified Code(s): R11.2 - Nausea with vomiting, unspecified Patient Disposition: Home, Self-Care Instructions: Acute Nausea and Vomiting (ED), Diabetic Hyperglycemia (ED) Additional Instructions: Take your insulin. Avoid marijuana as this can contribute to vomiting. Return to the ER with any new or worsening symptoms including: Fevers greater than 100?, worsening abdominal pain, inability to tolerate food or drink, any new symptom that concerns you. Prescriptions: No Action (DME) disposable gloves Package See Rx Instructions .Route Qty: 2 0RF Rx Instructions: As directed (DME) FreeStyle Test Strip See Rx Instructions .Route Qty: 50 11RF Rx Instructions: Use 1 test strip once a day rosuvastatin 5 mg tablet 5 mg PO DAILY 90 Days Qty: 90 1RF (DME) pen needle, diabetic [BD Ultra-Fine Micro Pen Needle] 32 gauge x 1/4 needle See Rx Instructions .ROUTE .COMPLEX Qty: 100 0RF Dose Instruction: USE FOR INJECTIONS FOUR TIMES DAILY Rx Instructions: USE FOR INJECTIONS FOUR TIMES DAILY (DME) crutch tips 7/8 See Rx Instructions .Route .MEDSUPPLY Qty: 2 0RF Rx Instructions: As directed (DME) Dexcom G7 Sensor Device See Rx Instructions .ROUTE .COMPLEX Qty: 3 0RF Dose Instruction: USE DIRECTED, CHANGE SENSOR EVERY 10 DAYS Rx Instructions: USE DIRECTED, CHANGE SENSOR EVERY 10 DAYS cholecalciferol (vitamin D3) 50 mcg (2,000 unit) capsule 50 mcg PO DAILY 90 Days Qty: 90 1RF (DME) blood-glucose meter [FreeStyle Lite Meter] Kit See Rx Instructions .Route Qty: 1 0RF Rx Instructions: As directed pyridoxine (vitamin B6) 50 mg tablet 50 mg PO DAILY 90 Days Qty: 90 0RF Glucerna Therapeutic Nutrition Liquid 1 ea PO TID Qty: 237 3RF glipizide 5 mg tablet 5 mg PO DAILY metoclopramide HCl 10 mg tablet 10 mg PO Q6H PRN (Reason: nausea and vomiting) Qty: 30 0RF amlodipine 5 mg tablet 5 mg PO DAILY cyclobenzaprine 5 mg tablet 5 mg PO BEDTIME PRN (Reason: Muscle Spasm) Baqsimi 3 mg/actuation spray,non-aerosol 3 mg intranasal USEASDIRECTD PRN (Reason: Hypocalcemia) omeprazole 40 mg capsule,delayed release(DR/EC) 40 mg PO BID@0630,1630 insulin glargine [Lantus Solostar U-100 Insulin] 100 unit/mL (3 mL) insulin pen 15 unit subcut DAILY (DME) wheelchair electric See Rx Instructions .Route .MEDSUPPLY Qty: 1 0RF Rx Instructions: As directed (DME) crutch tips 7-8 See Rx Instructions .Route .MEDSUPPLY Qty: 40 11RF Rx Instructions: As directed (DME) ankle wraps See Rx Instructions .Route .MEDSUPPLY Qty: 1 1RF Rx Instructions: As directed insulin aspart U-100 [Novolog FlexPen U-100 Insulin] 100 unit/mL (3 mL) insulin pen 5 unit subcut TID Qty: 15 5RF Print Language: Dutch
--- OUTSIDE RECORDS SUMMARY | 2025-07-25 22:16 | XMS_ITS | Patient Health Record ---
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 Role Phone Beverley PONCE, Isabell Primary Care Provider Unavail able Jasmyn Claire Unavailable [phone] Narciso Graff Unavailable [phone] Allergies No Known Allergies Results Component Value Reference Range Notes HEMOGLOBIN A1C (GLYCOHEMOGLO BIN) Reviewed date:08/10/2024 12:51:59 PM Interpretation: Performing Lab: Notes/Report: TOTAL HEMOGLOBIN (HGBA1C) 7 HEMOGLOBIN A1C (GLYCOHEMOGLO BIN) Reviewed date:02/25/2025 09:42:20 AM Interpretation: Performing Lab: Notes/Report: HEMOGLOBIN A1C % (HH) 7.0 HEMOGLOBIN A1C (GLYCOHEMOGLO BIN) Reviewed date:05/31/2025 09:27:35 AM Interpretation: Performing Lab: Notes/Report: HEMOGLOBIN A1C % (HH) 7.0 Reason For Referral No Information Medications Medication SIG (Take, Route, Frequency, Duration) Notes Start Date End Date Status Orthopedic Extra Depth Shoes With Custom Heat Molded Multidensity Innersoles as directed Wear Daily; Duration: as needed 04/07/2020 Not-Taking Extra Depth Diabetic Shoes with 3 Pair Custom heat-molded multi-density innersoles for 1 year Dx: 06/05/2021 N ot-Taking Pioglitazone HCl Not -Taking Januvia Not-Taking Custom Orthotics as directed one pair and accomodate painful right 2nd mtpj to offload pressure Not-Taking Trulicity 0.75 MG/0.5ML as directed Subcutaneous Not-Taking ASO Ankle/Foot Stablizing AFO As directed Wear Daily; Duration: as needed Not-Taking Custom Orthotics as directed A ctive Omeprazole 20 MG 1 capsule Orally Twi ce a day Active Potassium Active Extra Depth Diabetic Shoes with 3 Pair Custom heat-molded multi-density innersoles for 1 year Dx: N ot-Taking Immunizations Vaccine Route Administration Date Status Comme nts Influenza Unknown 09/01/2018 Refused Influenza Unknown 01/25/2020 Refused COVID-19 Pfizer BioNTech Vaccine Unknown 05/02/2021 Adm inistered COVID-19 Pfizer BioNTech Vaccine Unknown 05/23/2021 Adm inistered Social History Tobacco Use: Social History Observation Description Date Details (start date - stop date) Never Smoker NA - NA Tobacco use other than smoking: Question Answer Notes Are you an other tobacco user? No Tobacco Control (Standard) Question Answer Notes Tobacco use: Nonsmoker Additional Findings: Tobacco non-user Current no nsmoker AUDIT-C (Standard) Question Answer Notes Did you have a drink containing alcohol in the p ast year? No Points 0 Interpretation Negative Problems Problem Type SNOMED Code ICD Code Onset Dates Problem Status W/U Status Risk Notes Problem Polyneuropathy due to type 2 diabetes mellitus (222827267) Type 2 diabetes mellitus with diabetic polyneuropathy (E11.42) Active confirmed Vital Signs Blood pressure diastolic 70 mm Hg 11/09/2024 Height 5ft 7in in 05/31/2025 Blood pressure systolic 130 mm Hg 11/09/2024 Weight 117 lbs 05/31/2025 BMI 18.32 kg/m2 05/31/2025 Procedures Procedure Date Ordered Date Performed Result Body Sit e 53659-JWHWPSM NAIL, 6 OR MORE 11/09/2024 N/A 09390-PORJ SKIN LESIONS, 2 TO 4 11/09/2024 N/A 30315-GCJDZGT NAIL, 6 OR MORE 02/25/2025 N/A 25025-LWYLXAC NAIL, 6 OR MORE 05/31/2025 N/A 71497-PQPL SKIN LESIONS, 2 TO 4 05/31/2025 N/A Encounters Encounter Location Date Provider Diagnosis [facility] [address] [address] 08/10/2024 Narciso Graff Pain in left foot M79.672 ; Pain in right foot M79.671 ; Pain in right toe(s) M79.674 ; Tinea unguium B35.1 ; Pain in left toe(s) M79.675 ; Type 2 diabetes mellitus with diabetic polyneuropathy E11.42 ; Ingrowing nail L60.0 and Metatarsalgia, right foot M77.[address] [address] 11/09/2024 Jasmyn Claire Type 2 diabetes mellitus with diabetic polyneuropathy E11.42 and Tinea unguium B35.[address] [address] 02/25/2025 Jasmyn Claire Type 2 diabetes mellitus with diabetic polyneuropathy E11.42 ; Tinea unguium B35.1 ; Pain in right toe(s) M79.674 and Other hammer toe(s) (acquired), right foot M20.[address] [address] 05/31/2025 Jasmyn Claire Type 2 diabetes mellitus with diabetic polyneuropathy E11.42 and Tinea unguium B35.1 Assessments Encounter Date Diagnosis (ICD Code) Assessment Notes Treatment Notes Treatment Clinical Notes Section Notes 08/10/2024 Pain in left foot (ICD-10 - M79.672) 02/25/2025 Type 2 diabetes mellitus with diabetic polyneuropathy (ICD-10 - E11.42) 02/25/2025 Tinea unguium (ICD-10 - B35.1) 05/31/2025 Type 2 diabetes mellitus with diabetic polyneuropathy (ICD-10 - E11.42) 11/09/2024 Type 2 diabetes mellitus with diabetic polyneuropathy (ICD-10 - E11.42) 11/09/2024 Tinea unguium (ICD-10 - B35.1) 05/31/2025 Tinea unguium (ICD-10 - B35.1) 08/10/2024 Pain in right foot (ICD-10 - M79.671) 02/25/2025 Pain in right toe(s) (ICD-10 - M79.674) 08/10/2024 Pain in right toe(s) (ICD-10 - M79.674) 02/25/2025 Other hammer toe(s) (acquired), right foot (ICD-10 - M20.41) 08/10/2024 Tinea unguium (ICD-10 - B35.1) 08/10/2024 Pain in left toe(s) (ICD-10 - M79.675) 08/10/2024 Type 2 diabetes mellitus with diabetic polyneuropathy (ICD-10 - E11.42) 08/10/2024 Ingrowing nail (ICD-10 - L60.0) 08/10/2024 Metatarsalgia, right foot (ICD-10 - M77.41) Plan Of Treatment Pending Test Test Name Order Date X ray : Foot, right 3V 01/16/2018 02006-HALFFHB NAIL, 6 OR MORE 11/09/2024 22664-BMJOCMA NAIL, 6 OR MORE 02/25/2025 86145-ZQDTGRP NAIL, 6 OR MORE 05/31/2025 24212-Bhya Destruction, 1-14 01/16/2018 90163-Yrxd Destruction, 1-14 02/13/2018 46714-Qkwq Destruction, 1-14 03/06/2018 29844-Gxwz Destruction, 1-14 05/08/2018 86904-Jsbz Destruction, 1-14 07/17/2018 93947-Oceh Destruction, 1-14 09/01/2018 95446-Nprz Destruction, 1-14 11/17/2018 69704-TBDQ SKIN LESIONS, 2 TO 4 11/27/19 22 24330-HLHI SKIN LESIONS, 2 TO 4 02/27/20 22 01335-FSYM SKIN LESIONS, 2 TO 4 05/31/20 25 66807-NCND SKIN LESIONS, 2 TO 4 11/09/20 24 Next Appt Details Provider Name:Jasmyn Dunn liyah, 08/30/2025 09:30:00 AM, [address] [facility], [facility] [address], [place], [address], Insurance Providers Payer Name Payer Address Payer Phone Subscriber Number Group Number Insured Name Patient Relationship to Insured Coverage Start Date Coverage End Date [facility] [employer] Claims [address] [place] [phone] [id number] Thorpe Self - patient is the insured Medical (General) History Medical History History ICD Code Cerebral palsy Chicken pox Depression Diabetic Surgical History Surgery Date(Month/Year) neuroma surgery x4 1982, 1989 colonscopy 02/24/24 Hospitalization History Reason Date(Month/Year) [facility]- GI bleed 01/2022 [facility]- fractured right wrist 11/2024 [facility]- colitis 04/2023 [facility]- covid 09/2022 Food Posion 10/2019 [facility] ER High blood sugar 615/2018
[2025-07-25] MEDS: Lactated Ringers 1,000 ML 999 ML IV (22:23)
--- NOTE | 2025-07-25 22:25 | PC.NURSE ---
pt medicated per JAN, head of bed lowered. Friend at [facility].
[2025-07-25 23:15] LABS: Venous Blood Gas Refer to POC result
[2025-07-25 23:17] LABS: Appearance Urine Clear; Glucose Urine UA >=1000 mg/dL (Negative); PH 5.5 (5.0-9.0); Specific Gravity - Urine >= 1.030 (1.005-1.025); UMIC TRIGGER UACC YES
[2025-07-25 23:19] LABS: VBG HCO3 16 mmol/L (22-26); VBG O2 % Saturation 96.0 %
[2025-07-25] MEDS: Magnesium Sulfate/H2O 2 GM/50 ML PIGGYBACK IV (23:20)
[2025-07-25 23:35] LABS: Magnesium 2.0 mg/dL (1.6-2.6)
--- NOTE | 2025-07-25 23:49 | PC.NURSE ---
second Iv lien started on L wrist. LR running
--- NOTE | 2025-07-25 23:56 | PC.NURSE ---
pt medicated per MAR.
[2025-07-26] MEDS: iohexoL 350 MG/ML 100 ML INFUS..BTL 85 ML IV (00:24)
[2025-07-26 00:46] VITALS: BP 155/78; PULSE 75; RESP 16; TEMP 36.9; O2SAT 100
--- NOTE | 2025-07-26 01:03 | PC.NURSE ---
late entry- poc 234md made aware value did not doc in chart
[2025-07-26 01:14] LABS: Glucose, Whole Blood 234 mg/dL (60-115)
[2025-07-26 01:14] LABS: Glucose, Whole Blood 198 mg/dL (60-115)
--- NOTE | 2025-07-26 01:14 | PC.NURSE ---
197 POC, provider d/c insulin.
[2025-07-26] MEDS: Lactated Ringers 1,000 ML 999 ML IV (02:32)
--- NOTE | 2025-07-26 02:36 | PC.NURSE ---
pt medicated per MAR.
[2025-07-26 04:00] VITALS: BP 133/56; PULSE 68; RESP 14; TEMP 36.7; O2SAT 95
[2025-07-26 04:05] LABS: Venous Blood Gas Refer to POC result
[2025-07-26 04:07] LABS: VBG HCO3 24 mmol/L (22-26); VBG O2 % Saturation 90.0 %
[2025-07-26 04:15] LABS: Anion Gap 15 (12-20); Blood Urea Nitrogen 19 mg/dL (9-16); Calcium 8.9 mg/dL (8.4-10.2); Carbon Dioxide 22 mmol/L (22-29); Chloride 108 mmol/L (96-108); Creatinine Clr Calc Pharmacy 83.6; Estimated Glomerular Filt Rate > 60; Potassium 3.7 mmol/L (3.3-5.1); Sodium 141 mmol/L (135-145)
[2025-07-26 06:00] VITALS: BP 184/90; PULSE 91; RESP 20; TEMP 36.3; O2SAT 96
--- NOTE | 2025-07-26 06:13 | PC.NURSE ---
pt states he is nauseas, provider aware.
--- NOTE | 2025-07-26 06:31 | PC.NURSE ---
pt medicated per MAR.
--- NOTE | 2025-07-26 06:43 | PC.NURSE ---
pt requesting sleep medication when being medicated fro nausea. I advised the provider was planning to d/c pt.
[2025-07-26 07:23] LABS: Glucose, Whole Blood 233 mg/dL (60-115)
[2025-07-26 07:56] VITALS: BP 151/77; PULSE 86; RESP 18; TEMP -17.7; TEMP 0; O2SAT 98
--- NOTE | 2025-07-26 07:57 | PC.NURSE ---
Pt calm, cooperative. A+OX4. Pt ready for d/c, awaiting ride. Pt still had elevated glucose, provider aware and instructed pt to take his personal insulin. RR even and unlabored, denies CP or SOB.
== END 2025-07-26 08:26 | disposition home or self-care (01) ==
PROVIDERS: Student in an Organized Health Care Education/Training Program; Emergency Provider Emergency Medicine; PCP Internal Medicine
DX: E11.65 Type 2 diabetes mellitus with hyperglycemia (principal); R11.2 Nausea with vomiting, unspecified; E87.20 Acidosis, unspecified; R10.2 Pelvic and perineal pain; Z79.4 Long term (current) use of insulin; Z79.899 Other long term (current) drug therapy
CPT/HCPCS: 36415; 74177; 80048; 80053; 81001; 82010; 82803; 82947; 83605; 83690; 83735; 85025; 87040; 93005; 96361; 96365; 96366; 96375; 99285; J1790; J2270; J2405; J2765; J3475; J7120; Q9967

== ENCOUNTER → 2025-07-25 21:55 | Outpatient (BNV) | payer OTHER, SELFPAY | PROVIDERS: Emergency Provider Emergency Medicine; PCP Internal Medicine; Visit Provider Internal Medicine | DX: R73.9 Hyperglycemia, unspecified (principal) | CPT/HCPCS: 93010 ==

== ENCOUNTER → 2025-07-26 00:10 | Outpatient (BNV) | payer OTHER, SELFPAY | PROVIDERS: Emergency Provider Emergency Medicine; PCP Internal Medicine; Visit Provider General Practice | DX: N28.1 Cyst of kidney, acquired (principal); N20.0 Calculus of kidney | CPT/HCPCS: 74177 ==

== ENCOUNTER 2025-08-04 10:37 | Outpatient (AMB) | payer OTHER, SELFPAY ==
--- NOTE | 2025-08-04 11:04 | MHC.PC.OV ---
Vital Signs 08/04/25 11:05 Height 5 ft 4 in Weight 102 lb 11.767 oz BMI 17.6 BP 130/76 Blood Pressure Location Lt brachial Position Sitting Pulse 107 H Pulse Source Pulse Oximeter Temp 97.3 F Temp Source Temporal Artery Scan Pulse Oximetry (%) 98 Oxygen Delivery Method Room Air Intake Visit Reasons: dm Intake Note: Patient is here to follow up on DM. 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 Accompanied by: Self / Same As Patient Allergies No Known Allergies Allergy (Verified 08/04/25 11:35) Medication List - Last Reconciled 08/04/25 by Isabell Young MD amlodipine 5 mg PO DAILY [ankle wraps As directed] blood sugar diagnostic (FreeStyle Test strips) Use 1 test strip once a day blood-glucose meter (FreeStyle Lite Meter kit) As directed blood-glucose sensor (Discount Ramps G7 Sensor device) USE DIRECTED, CHANGE SENSOR EVERY 10 DAYS cholecalciferol (vitamin D3) 50 mcg PO DAILY 90 days [crutch tips As directed] [crutch tips As directed] cyclobenzaprine 5 mg PO BEDTIME PRN disposable gloves As directed glipizide 5 mg PO DAILY glucagon 3 mg/actuation (Baqsimi) 3 mg intranasal USEASDIRECTD PRN insulin aspart U-100 (Novolog FlexPen U-100 Insulin aspart) 5 units (0.05 mL) subcut TID insulin glargine (Lantus Solostar U-100 Insulin) 15 units subcut DAILY metoclopramide HCl 10 mg PO Q6H PRN nut.tx.gluc.intol,lac-free,soy (Glucerna Therapeutic Nutrition oral liquid) 1 ea PO TID omeprazole 40 mg PO BID@0630,1630 pen needle, diabetic (BD Ultra-Fine Micro Pen Needle) USE FOR INJECTIONS FOUR TIMES DAILY pyridoxine (vitamin B6) 50 mg PO DAILY 90 days rosuvastatin 5 mg PO DAILY 90 days [wheelchair As directed] Tobacco use date assessed: 08/04/25 Dental Screening Dental Screen Date: 03/16/25 HPI HPI Comments History of Present Illness Details The patient is a 45-year-old male presenting with nausea, vomiting, and abdominal pain. He visited the emergency room on July 25 due to these symptoms, where a CT scan of the abdomen and blood work were performed. The CT scan revealed mild colonic wall thickening, and blood work showed an elevated white blood cell count, likely due to the nausea and vomiting. The patient has a history of Diabetes Mellitus, with an A1c that has improved from 14 to 11.8, although it remains poorly controlled. He is currently on insulin therapy, with one insulin administered three times a day and another at 15 units. His blood sugar was recorded at 233 mg/dL, with occasional reductions to 145 mg/dL. He is noncompliant with his medications. Declines Endo referral. The patient also has a history of hypertension, managed with amlodipine 5 mg, which is effectively controlling his blood pressure. He is on rosuvastatin 5 mg for hyperlipidemia. The patient has a history of kidney stones and kidney cysts, with recent imaging confirming the presence of stones, though their size was not specified. He reports no significant changes in urinary function. The patient uses cannabis, which may contribute to his nausea and vomiting. He was advised that cessation might alleviate these symptoms. 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 have visiting nurse or other home services: Yes ([employer]PH[employer]) Alcohol intake: current Alcohol intake frequency: holidays/special occasions only Alcohol type: beer Patient Tobacco Use Status: Former Tobacco user Tobacco use type: Cigarette e-Cigarette/Vaping Use: Never Used Second Hand Smoke Exposure: Yes Substance Use Type: Marijuana service: No Current occupational status: disabled Current occupation: rt handed Cognitive needs: Yes Hearing needs: No Vision needs: Yes Questionnaire Thrive Questionnaire Date Thrive assessed: 03/12/25 I am a: Patient What is your living situation today?: I have a steady place to live Within the past 12 months, did the food you bought not last and you didn't have the money to get more?: I choose not to answer this question Within the past 12 months, did you worry whether your food would run out before you got money to buy more?: I choose not to answer this question Do you have trouble paying for medicines?: No Do you have trouble getting transportation to medical appointments?: No Do you have trouble paying your heating and electricity bill?: I choose not to answer this question Do you have trouble taking care of your child, family member or friend?: I choose not to answer this question Do you have trouble with day-to-day activities such as bathing, preparing meals, shopping, managing finances, etc.?: No Are you currently unemployed and looking for a job?: No Are you interested in more education?: No Please select the resources that you would like help with: None Currently or been in a relationship where the following occur: I choose not to answer THRIVE Score: 0 AUSTYN-7 AMB Questionnaire AUSTYN-7 Date AUSTYN - 7 assessed: 03/16/25 Source: Developed by Drs. Jabari Mckeon, Argentina Staton, Ernesto Estrada and colleagues, with an educational joesph from [employer]. Review of Systems Const All systems reviewed & are unremarkable except as noted in HPI and below Card Denies chest pain at rest, Denies chest pain with activity, Denies edema, Denies irregular heart rhythm, Denies claudication, Denies dyspnea, Denies dyspnea on exertion, Denies orthopnea, Denies paroxysmal nocturnal dyspnea and Denies slow heart rate Resp Denies cough, Denies dyspnea and Denies dyspnea on exertion Neuro Denies lack of coordination Physical exam (Primary Care) Vital Signs: Last Vital Signs Temp 97.3 F 08/04/25 11:05 Pulse 107 H 08/04/25 11:05 BP 130/76 08/04/25 11:05 Pulse Ox 98 08/04/25 11:05 Oxygen Delivery Method Room Air 08/04/25 11:05 BMI result Body Mass Index 17.6 BMI Assessment/Plan discussion: Low BMI Low, Plan discussed: lifestyle, increase calorie intake and dietary Tobacco/Smoking Status: Tobacco use Status Tobacco use date assessed 08/04/25 08/04/25 11:16 Patient Tobacco Use Status Former Tobacco user 08/04/25 11:16 Tobacco use type Cigarette 08/04/25 11:16 e-Cigarette/Vaping Use Never Used 08/04/25 11:16 Thrive Assessment: Date of Thrive Assessment Date Thrive assessed 03/12/25 08/04/25 11:16 Currently or been in a relationship where the following occur: I choose not to answer Const Limitations: crutches Resp Effort & Inspection: normal respiratory effort Auscultation: clear to auscultation bilaterally Cardio Jugular venous distension: no JVD Rate: regular rate Rhythm: regular rhythm Heart sounds: S1 normal heart sound present and S2 normal heart sound present Extrem Other: no movement in legs Results AMB Hemoglobin A1c AMB Hemoglobin A1c 11.8 % Last Edit by ANABEL Marr on 08/04/25 11:16 Results Reviewed Results Reviewed: Laboratory Last Values Hgb A1c (Clinic) 11.8 % (4.0-6.0) H 08/04/25 11:03 Coding Level of Care Code Est Pt Level 4 (61932) Complex EM visit Add On G2211 Diagnoses Diabetes mellitus with gastroparesis E11.43 Hyperlipidemia LDL goal <70 E78.5 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 Renal calculi N20.0 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 Essential hypertension I10 Time Spent (min) 25 Assessment & Plan Assessment & Plan (1) Diabetes mellitus with gastroparesis: Code(s): E11.43 - Type 2 diabetes mellitus with diabetic autonomic (poly)neuropathy Category: Medical (2) Hyperlipidemia LDL goal <70: Code(s): E78.5 - Hyperlipidemia, unspecified Category: Medical (3) 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 1. Diabetes Mellitus The patient's Type 2 Diabetes Mellitus is poorly controlled with an A1c of 11.8, though improved from 14. He is on insulin therapy, with one insulin administered three times a day and another at 15 units. The plan includes increasing the Lantus dosage by five units to improve glycemic control. 2. Hypertension The patient's hypertension is well-controlled with amlodipine 5 mg daily. 3. Hyperlipidemia The patient is on rosuvastatin 5 mg for hyperlipidemia management. 4. Kidney Stones The patient has a history of kidney stones, confirmed by recent imaging, though the size was not specified. An ultrasound of the kidneys will be ordered to measure the stones. 5. Cannabis Use The patient uses cannabis, which may contribute to his nausea and vomiting. He was advised to cease use to potentially alleviate these symptoms. 6. Colonic Wall Thickening The CT scan revealed mild colonic wall thickening, which will be monitored. 7. Elevated White Blood Cell Count The elevated white blood cell count is likely due to nausea and vomiting. A repeat blood test will be conducted to monitor the levels. Orders: Orders Lipid Panel Today E78.5 - Hyperlipidemia, unspecified US renal BI Today N20.0 - Calculus of kidney AMB Hemoglobin A1c Today E11.43 - Type 2 diabetes mellitus with diabetic autonomic (poly)neuropathy Complete Blood Count Auto Diff Today D64.9 - Anemia, unspecified Microalbumin, Random (w Creat) Today R80.9 - Proteinuria, unspecified Vitamin D 25-OH Total Today E55.9 - Vitamin D deficiency, unspecified Vitamin B12 and Folate Today E53.8 - Deficiency of other specified B group vitamins Comprehensive [place]. Panel Fast Today E11.43 - Type 2 diabetes mellitus with diabetic autonomic (poly)neuropathy Referrals Gastroenterology Referral E11.43 - Type 2 diabetes mellitus with diabetic autonomic (poly)neuropathy Medications: New [showe chair] As directed 1 ea 0RF G80.1 - Spastic diplegic cerebral palsy Changed From insulin glargine (Lantus Solostar U-100 Insulin) 20 units subcut DAILY To insulin glargine (Lantus Solostar U-100 Insulin) 20 units (0.2 mL) subcut DAILY 18 mL 2RF 90 days From pen needle, diabetic (BD Ultra-Fine Micro Pen Needle) USE FOR INJECTIONS FOUR TIMES DAILY 100 ea 0RF To pen needle, diabetic USE FOR INJECTIONS FOUR TIMES DAILY 100 ea 11RF
[2025-08-04 11:05] VITALS: BP 130/76; PULSE 107; TEMP 36.3; O2SAT 98; BMI 17.6
== END 2025-08-04 12:01 | disposition home or self-care (01) ==
LOC: HO.HMCH 10:38
PROVIDERS: PCP Internal Medicine; Visit Provider Internal Medicine
DX: E11.43 Type 2 diabetes mellitus with diabetic autonomic (poly)neuropathy (principal); E78.5 Hyperlipidemia, unspecified; N20.0 Calculus of kidney; G80.1 Spastic diplegic cerebral palsy; I10 Essential (primary) hypertension

== ENCOUNTER → 2025-08-04 10:37 | Outpatient (BNVA) | payer OTHER, SELFPAY | PROVIDERS: PCP Internal Medicine; Visit Provider Internal Medicine | DX: E11.43 Type 2 diabetes mellitus with diabetic autonomic (poly)neuropathy (principal); E78.5 Hyperlipidemia, unspecified; N20.0 Calculus of kidney; G80.1 Spastic diplegic cerebral palsy; I10 Essential (primary) hypertension; F12.90 Cannabis use, unspecified, uncomplicated; R93.3 Abnormal findings on diagnostic imaging of other parts of digestive tract; D72.829 Elevated white blood cell count, unspecified; Z79.4 Long term (current) use of insulin; Z79.899 Other long term (current) drug therapy | CPT/HCPCS: 83036; 99212 ==